=== PATIENT | female | born 1930 | race Caucasian/White ===

== ENCOUNTER → 2017-01-02 | Outpatient (CLI) | payer OTHER, BC ==
[~2017-01-02] MED LIST: ADVIN50/60 INH; ALLO100T PO; ASCO500T16 PO; ASTN; AZEL0.15 NAE; CALC-5 PO; CAPS0.072 EXT; CHOL100010 PO; CYAN100020 PO; CYCL0.05 OP; CYM/30 PO; DRGTP100 TD; DTR2 PO; FLUT0.15 NAE; GABA-112 PO; GABA-113 PO; MONT1TAB3 PO; MULTTAB5 PO; OXGN INTNAS; OXYC1TAB3 PO; OXYC5TAB PO; PANT40TA PO; POLY335040 PO; RANI300T2 PO; RIVA1.5T PO; SPIR25TA PO; TELM80TA PO
[2017-01-02 17:15] LABS: BASO % 0.2 %; BASO ABS # 0.02 K/uL (0-0.2); COMPLETE YES; EOS % 0.9 %; HEMATOCRIT 38.7 % (37-47); IG% 1.5 %; LYMPH % 29.4 %; LYMPH ABS # 3.61 K/uL (1.2-3.4); MEAN CORPUSCULAR HEMOGLOBIN 36.4 pg (25-34); MEAN CORPUSCULAR HGB CONC 34.4 g/dl (32-36); MEAN PLATELET VOLUME 12.5 fL (7.4-10.4); MONO % 16.6 %; NEUT % 51.4 %; PLATELET COUNT 234 K/uL (130-400); RED BLOOD COUNT 3.65 M/uL (4.2-5.4); WHITE BLOOD COUNT 12.27 K/uL (4.8-10.8)
[2017-01-02 17:26] LABS: ALT/SGPT 57 U/L (12-78); AST/SGOT 32 U/L (15-37); BLOOD UREA NITROGEN 21 mg/dl (7-18); BUN/CREATININE RATIO 17.4 (10-20); CALCIUM 9.5 mg/dl (8.5-10.1); CARBON DIOXIDE 22 mmol/L (21-32); CHLORIDE 109 mmol/L (98-107); GLUCOSE 101 mg/dl (70-99); POTASSIUM 4.1 mmol/L (3.5-5.1); SODIUM 143 mmol/L (136-145)
[2017-01-02 17:38] LABS: ALB/GLOB RATIO 1.1 (0.9-2); ALKALINE PHOSPHATASE 95 U/L (45-117)
--- NOTE | 2017-01-06 11:18 | CODING QUERY MEDICAL NECESSITY ---
SUPPORTING DIAGNOSIS NEEDED Dr. Mendez, A supporting diagnosis is required for the test/procedure performed on this patient in order for us to be reimbursed by the patient's insurance. Please provide a supporting diagnosis for the following test/procedure listed below next to the test name along with your signature. *If there is no additional diagnosis for this patient that would support the following test/procedure please document that below next to the test/procedure. Test(s)/Procedure(s) that require a supporting diagnosis: * ([id number]) VITAMIN D ASSAY DIAGNOSIS: DATE OF SERVICE: 01/02/17 Provider Signature: Date: Thank you Rich Perez [facility] Information Management Once completed, please kindly fax back to [phone] For questions please call [phone]
== END | disposition home or self-care (01) ==
LOC: C.LABBC 14:52
PROVIDERS: ATTEND Nurse Practitioner Family
DX: J45.909 Unspecified asthma, uncomplicated (principal); I10 Essential (primary) hypertension; R73.9 Hyperglycemia, unspecified; N18.9 Chronic kidney disease, unspecified; R41.3 Other amnesia; R35.0 Frequency of micturition

== ENCOUNTER → 2017-03-17 | Outpatient (CLI) | payer OTHER, BC ==
--- NOTE | 2017-03-17 11:04 | DIAGNOSTIC IMAGING REPORT ---
ABDOMINAL ULTRASOUND TO EVALUATE FOR HERNIA HISTORY: Abdominal hernia.. COMPARISON: CT of the abdomen and pelvis August 04, 2016. FINDINGS: Note is made of an elliptical abnormality of the mid anterior abdominal wall that measures 6.5 x 3.4 x 7.8 cm. This contains a linear echogenic focus. This corresponds to the abnormality shown on CT of August 04, 2016 and suggests a previous ventral hernia repair with mesh. This is unchanged. No hernia at this level is identified. IMPRESSION: 6.5 x 3.4 x 7.8 cm elliptical hypoechoic abnormality of the mid anterior abdominal wall which corresponds to the finding on CT of August 04, 2016 and suggests findings related to a prior ventral hernia repair with mesh with associated fluid/complex material. Findings are unchanged and likely chronic. No recurrent hernia at this level. Electronically signed by: Shailesh Luu M.D. 03/17/2017 11:03 AM Dictated Date/Time: 03/17/2017 10:56 AM
== END | disposition home or self-care (01) ==
LOC: C.ULTR 10:20
PROVIDERS: ATTEND Internal Medicine Geriatric Medicine
DX: K46.9 Unspecified abdominal hernia without obstruction or gangrene (principal)

== ENCOUNTER → 2017-06-13 | Outpatient (CLI) | payer OTHER, BC ==
[2017-06-13 17:06] LABS: HEMATOCRIT 36.4 % (37-47); MEAN CORPUSCULAR HEMOGLOBIN 36.2 pg (25-34); MEAN CORPUSCULAR HGB CONC 33.5 g/dl (32-36); MEAN PLATELET VOLUME 12.5 fL (7.4-10.4); PLATELET COUNT 191 K/uL (130-400); RED BLOOD COUNT 3.37 M/uL (4.2-5.4); WHITE BLOOD COUNT 10.04 K/uL (4.8-10.8)
[2017-06-13 17:21] LABS: BLOOD UREA NITROGEN 26 mg/dl (7-18); BUN/CREATININE RATIO 21.5 (10-20); CALCIUM 9.7 mg/dl (8.5-10.1); CARBON DIOXIDE 26 mmol/L (21-32); CHLORIDE 110 mmol/L (98-107); GLUCOSE 88 mg/dl (70-99); POTASSIUM 4.7 mmol/L (3.5-5.1); SODIUM 140 mmol/L (136-145); URIC ACID 5.4 mg/dl (2.6-7.2)
[2017-06-13 18:54] LABS: BASO ABS # 0.09 K/uL (0-0.2); BASOPHIL % 0.9 %; COMPLETE YES; EOSINOPHIL % 2.6 %; LYMPH ABS # 2.34 K/uL (1.2-3.4); LYMPHOCYTE % 23.3 %; NEUTROPHILS % 60.3 %
[2017-06-14 06:28] LABS: ESTIMATED AVERAGE GLUCOSE 108 mg/dl; HA1C FLAG Normal (Normal)
== END | disposition home or self-care (01) ==
LOC: C.LABBC 14:12
PROVIDERS: ATTEND Physician Assistant Medical
DX: J45.909 Unspecified asthma, uncomplicated (principal); I10 Essential (primary) hypertension; E03.9 Hypothyroidism, unspecified; M10.9 Gout, unspecified; R73.9 Hyperglycemia, unspecified; I89.0 Lymphedema, not elsewhere classified; M79.673 Pain in unspecified foot

== ENCOUNTER → 2017-07-25 | Outpatient (CLI) | payer OTHER, BC ==
--- NOTE | 2017-07-25 14:22 | DIAGNOSTIC IMAGING REPORT ---
(CHEST) THORAX WITHOUT CLINICAL HISTORY: 86 years-old Female presenting with solitary pulmonary nodule (right middle lobe 11 millimeter nodule). TECHNIQUE: Multidetector CT imaging of the chest was performed without the use of intravenous contrast. IV contrast: None. A dose lowering technique was used consistent with the principles of ALARA (as low as reasonably achievable). COMPARISON: 07/19/2016. CT DOSE (mGy.cm): The estimated cumulative dose is 897.70 mGy.cm. FINDINGS: Dietary Cook topogram: Surgical clips project over the right upper quadrant. Her slightly visualized posterior lumbar fusion hardware. On soft tissue windows, postsurgical changes of right mastectomy. Partially calcified nodule in the left breast subareolar region. Normal thyroid and thoracic inlet. Numerous prominent mediastinal lymph nodes similar to prior exam measuring up to 7 mm in the short axis. Atherosclerosis of aortic arch. The main pulmonary artery is enlarged measuring 3.8 cm in transverse dimension. Normal heart size. Aortic valve, mitral annular, and coronary artery calcification. No pericardial or pleural effusion. Numerous punctate calcifications noted in the spleen, likely indicating old granulomatous disease. Postsurgical or posttraumatic changes of the inferior lateral aspect of the spleen. Surgical material along the left aspect of the liver may indicate left hepatectomy or ballistic material. 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 Gallbladder contains gallstones. Surgical mesh noted at the ventral midline abdomen with an associated fluid collection, unchanged in appearance from prior exam. On lung windows, postsurgical changes of wedge resection in the right lower lobe with a suture margin noted in the superior segment. Persistent consolidation along the suture margin suggestive of cicatrizing atelectasis. Interval increase in tree-in-bud, groundglass, and more solid consolidation in the dependent portions of the right middle lobe and right lower lobe. The previously noted solid pulmonary nodule now measures 12 mm, previously 11 mm. Additional more central solid pulmonary nodule in the right middle lobe measures 14 mm, previously 10 mm. These nodules immediately abut the medial segment bronchus of the right middle lobe. Airways remain patent. On bone windows, degenerative changes of the spine. IMPRESSION: 1. Slight interval increase in size of the 2 right middle lobe solid pulmonary nodules, which measure up to 14 mm. Follow-up per Shari Society 2017 recommendations below. 2. Postsurgical changes of right lower lobe wedge resection with associated persistent cicatrizing atelectasis. 3. Interval development of dependent opacities in the right middle and lower lobes, which are concerning for infection or aspiration. Please refer to below summary of Fleischner Society 2017 recommendations for follow-up of incidental CT nodules (Patrick Celis et al. Guidelines for management of incidental pulmonary nodules detected on CT images: From the Fleischner Society 2017. Radiology 2017; 284: 228-243.) SOLID NODULES Single nodule; size <6 mm * Low risk patients: No routine follow-up * High risk patients: Optional CT at 12 months Single nodule; size 6-8 mm * Low risk patients: CT at 6-12 months, then consider CT at 18-24 months * High risk patients: CT at 6-12 months, then at 18-24 months Single nodule; size >8 mm * Either low or high risk patients: Considered CT at 3 months, PET/CT, or tissue sampling Multiple nodules; size <6 mm * Low risk patients: No routine follow up * High risk patients: Optional CT at 12 months Multiple nodules; size 6-8 mm * Low risk patients: CT at 3-6 months, then consider CT at 18-24 months * High risk patients: CT at 3-6 months, then at 18-24 months Multiple nodules; size >8 mm * Low risk patients: CT at 3-6 months, then consider at 18-24 months * High risk patients: CT at 3-6 months, then at 18-24 months Note: These guidelines apply to incidental nodules. These guidelines did not apply to patients younger than 35 years, immunocompromised patients, or patients with cancer. * Low risk patients: Minimal or absent history of smoking and/or other known risk factors * High risk patients: History of smoking, exposure to other carcinogens, emphysema, fibrosis, upper lobe location, family history of lung cancer, etc. * If a nodule up to 8 mm is partly solid or is ground glass further follow-up is required after 24 months to exclude possible slow growing adenocarcinoma SUBSOLID NODULES Single ground-glass nodule * Nodule size < 6 mm: No routine follow-up * Nodule size > or = 6 mm: CT at 6-12 months to confirm persistence, then CT every 2 years until 5 years Single part-solid nodule * Nodule size < 6 mm: No routine follow-up * Nodules size > or = 6 mm: CT at 3-6 months to confirm persistence. If unchanged and solid component remains < 6 mm, annual CT should be performed for 5 years Multiple nodules * Nodule size < 6 mm: CT at 3-6 months. If stable, consider CT at 2 and 4 years. * Nodules size > or = 6 mm: CT at 3-6 months. Subsequent management based on the most suspicious nodule(s) Electronically signed by: Kingsley Olsen M.D. 07/25/2017 2:21 PM Dictated Date/Time: 07/25/2017 2:09 PM
== END | disposition home or self-care (01) ==
LOC: C.CTS 13:43
PROVIDERS: ATTEND Internal Medicine Geriatric Medicine
DX: R91.1 Solitary pulmonary nodule (principal)

== ENCOUNTER → 2017-08-07 | Outpatient (CLI) | payer OTHER, BC | END | disposition home or self-care (01) | LOC: C.LABSPEC 17:08 | PROVIDERS: ATTEND Nurse Practitioner Family | DX: R32 Unspecified urinary incontinence (principal) ==

== ENCOUNTER → 2017-09-04 | Outpatient (CLI) | payer OTHER, BC ==
--- NOTE | 2017-09-05 07:36 | DIAGNOSTIC IMAGING REPORT ---
PET/CT SKULL-THIGH CLINICAL HISTORY: 86 years-old Female with PULMONARY NODULE. History of mucinous bronchoalveolar carcinoma and breast cancer. History of prior right upper lobe wedge resection with pleural-parenchymal scarring and atelectasis. Nodules of the right middle lobe and increased in size. COMPARISON: PET CT 12/08/2014, CT chest 07/25/2017 TECHNIQUE: The patient was injected with 9.95 mCi of F-18 fluorodeoxyglucose (FDG) and an emission scan was performed from the skull vertex to the toes. Noncontrast CT was performed for attenuation correction and anatomic localization. The blood glucose level was 107 mg/dl. FINDINGS: HEAD AND NECK: Focally increased radiotracer uptake of several right mandibular teeth are seen with SUV max measuring up to 4.6 without definite correlate seen on the CT portion of the study suggesting odontogenic disease. Increased radiotracer uptake about the glottis is present with SUV max measuring up to 5.0 on the left. Mild asymmetric soft tissue prominence is noted within the left posterolateral glottic tissues just superior to the cricoid cartilage as seen on image 43 of series 2 without definite mass. CHEST: Moderate respiratory motion limits evaluation of the lung parenchyma. Previously noted solid pulmonary nodules of the right middle lobe which were previously noted measuring up to 14 mm are seen on image 89 of series 2. No definite focally increased FDG activity is seen to correspond with these nodules. There is mildly increased radiotracer uptake associated with subsegmental dependent groundglass and consolidative opacities of the basal right lower lobe as seen on CT image 101 of series 2 demonstrating SUV max of 2.4. No FDG avid adenopathy. ABDOMEN AND PELVIS: There is a physiologic distribution of activity within the liver, spleen, adrenal glands, gastrointestinal and urinary tracts, with no hypermetabolic foci. MUSCULOSKELETAL SYSTEM AND EXTREMITIES: There is an acute to subacute appearing nondisplaced fracture involving the anterior aspect of the left second rib which is new from prior study of 07/25/2017 demonstrating focally increased FDG activity with SUV max of 5.3 as seen on image 68 of series 2. Mildly increased radiotracer uptake about the bilateral shoulders is likely degenerative related. ADDITIONAL CT FINDINGS: Heterogeneous appearance of the thyroid. Cardiomegaly with coronary arterial disease. Dilation of the main pulmonary artery, 3.4 cm suggesting pulmonary arterial hypertension. Scattered groundglass and nodular consolidative opacities of the lower lobes. Postsurgical changes of the right lung again seen. Scattered calcifications of the splenic parenchyma compatible with prior granulomatous disease. Cholelithiasis. Unchanged 7.7 x 3.4 cm collection of the anterior abdominal wall associated with herniorrhaphy mesh suggesting chronic seroma. Mild renal cortical thinning bilaterally. Atherosclerosis of the aorta. IMPRESSION: 1. Moderate respiratory motion limits evaluation of the lungs. The two pulmonary nodules within the right middle lobe which were previously seen measuring up to 14 mm do not demonstrate appreciable FDG uptake. This however does not exclude the possibility of neoplasm and continued follow-up is recommended. 2. Acute to subacute nondisplaced fracture of the anterior left second rib, new from 07/25/2017 demonstrates focally increased FDG uptake related to healing. 3. Mildly increased radiotracer uptake associated with subsegmental consolidation of the right lower lobe, suspicious for pneumonia or aspiration pneumonitis. 4. No hypermetabolic adenopathy. 5. Mild soft tissue prominence with increased FDG activity associated with the left glottic tissues as above. This can be correlated with direct visualization. 6. Additional incidental findings as above. The above report was generated using voice recognition software. It may contain grammatical, syntax or spelling errors. Electronically signed by: Sixto Breaux M.D. 09/05/2017 7:35 AM Dictated Date/Time: 09/05/2017 7:14 AM
== END | disposition home or self-care (01) ==
LOC: C.PET 13:03
PROVIDERS: ATTEND Physician Assistant
DX: R91.1 Solitary pulmonary nodule (principal)

== ENCOUNTER → 2017-09-20 | Outpatient (CLI) | payer OTHER, BC ==
--- NOTE | 2017-09-20 15:51 | DIAGNOSTIC IMAGING REPORT ---
CHEST 2 VIEWS ROUTINE CLINICAL HISTORY: COUGH dyspnea COMPARISON STUDY: No previous studies for comparison. FINDINGS: Poorly defined interstitial infiltrates right as well as left base. Mild cardiomegaly. Mid and upper lungs are considered clear. Calcified node in the azygo esophageal recess considered benign. Degenerative change of both shoulders. IMPRESSION: Mild bibasilar interstitial infiltrates. The above report was generated using voice recognition software. It may contain grammatical, syntax or spelling errors. Electronically signed by: Wm Browne M.D. 09/20/2017 3:50 PM Dictated Date/Time: 09/20/2017 3:49 PM
--- NOTE | 2017-09-20 16:04 | DIAGNOSTIC IMAGING REPORT ---
VENOUS DOPP LOWER EXT UNILAT CLINICAL HISTORY: VENOUS DOPPLER pain. Edema. TECHNIQUE: Venous Doppler COMPARISON STUDY: None FINDINGS: Normal venous Doppler left leg. IMPRESSION: Normal venous Doppler left leg. The above report was generated using voice recognition software. It may contain grammatical, syntax or spelling errors. Electronically signed by: Wm Browne M.D. 09/20/2017 4:02 PM Dictated Date/Time: 09/20/2017 4:02 PM
[2017-09-20 16:53] LABS: BASO % 0.1 %; BASO ABS # 0.01 K/uL (0-0.2); COMPLETE YES; EOS % 0.6 %; HEMATOCRIT 38.1 % (37-47); IG% 1.5 %; LYMPH % 25.7 %; LYMPH ABS # 3.07 K/uL (1.2-3.4); MEAN CELL VOLUME 107.9 fL (80-100); MEAN CORPUSCULAR HEMOGLOBIN 36.8 pg (25-34); MEAN CORPUSCULAR HGB CONC 34.1 g/dl (32-36); MONO % 15.1 %; PLATELET COUNT 222 K/uL (130-400); RED BLOOD COUNT 3.53 M/uL (4.2-5.4); WHITE BLOOD COUNT 11.93 K/uL (4.8-10.8)
[2017-09-20 17:02] LABS: BLOOD UREA NITROGEN 19 mg/dl (7-18); BUN/CREATININE RATIO 16.8 (10-20); CALCIUM 9.9 mg/dl (8.5-10.1); CARBON DIOXIDE 24 mmol/L (21-32); CHLORIDE 107 mmol/L (98-107); CREATININE 1.14 mg/dl (0.60-1.20); GLUCOSE 99 mg/dl (70-99); POTASSIUM 4.7 mmol/L (3.5-5.1); SODIUM 138 mmol/L (136-145)
[2017-09-20 17:11] LABS: URINE APPEARANCE CLEAR (CLEAR); URINE BILIRUBIN NEG (NEG); URINE COLOR YELLOW; URINE EPITHELIAL CELL AUTO 20-30 /lpf (0-5); URINE NITRITE NEG (NEG); URINE PH 8.5 (4.5-7.5); URINE SPECIFIC GRAVITY 1.014 (1.000-1.030); UROBILINOGEN NEG (NEG)
[2017-09-20 17:15] LABS: MANUAL MICROSCOPIC REQUIRED? NO; REVIEW REQ? NO
== END | disposition home or self-care (01) ==
LOC: C.ULTRBC 14:58
PROVIDERS: ATTEND Physician Assistant Medical
DX: R60.0 Localized edema (principal); R05 Cough; M10.9 Gout, unspecified; G25.81 Restless legs syndrome; R35.0 Frequency of micturition

== ENCOUNTER → 2017-09-27 | Outpatient (CLI) | payer OTHER, BC ==
[2017-09-27 17:29] LABS: BLOOD UREA NITROGEN 19 mg/dl (7-18); BUN/CREATININE RATIO 16.2 (10-20); CALCIUM 9.5 mg/dl (8.5-10.1); CARBON DIOXIDE 25 mmol/L (21-32); CHLORIDE 106 mmol/L (98-107); CREATININE 1.17 mg/dl (0.60-1.20); GLUCOSE 104 mg/dl (70-99); POTASSIUM 4.7 mmol/L (3.5-5.1); SODIUM 139 mmol/L (136-145)
== END | disposition home or self-care (01) ==
LOC: C.LABBC 15:06
PROVIDERS: ATTEND Physician Assistant Medical
DX: R60.9 Edema, unspecified (principal)

== ENCOUNTER → 2017-10-10 | Outpatient (CLI) | payer OTHER, BC ==
--- NOTE | 2017-10-10 16:12 | DIAGNOSTIC IMAGING REPORT ---
R TIBIA/FIBULA 2 VIEWS ROUTINE CLINICAL HISTORY: Right lower leg pain. COMPARISON STUDY: None. FINDINGS: Partially visualized right total knee arthroplasty. No abnormal periprosthetic lucency. No fracture or dislocation within the right tibia or fibula. There is mild diffuse soft tissue edema. IMPRESSION: 1. No fracture or dislocation within the right lower leg. 2. Diffuse mild soft tissue edema. Electronically signed by: Darshan Yin M.D. 10/10/2017 4:11 PM Dictated Date/Time: 10/10/2017 4:09 PM
--- NOTE | 2017-10-10 16:15 | DIAGNOSTIC IMAGING REPORT ---
RIGHT HIP 2 VIEWS HISTORY: Right hip PAIN COMPARISON: None. FINDINGS: The bones are osteopenic. No acute fracture or dislocation within the right hip. The visualized pelvic bones are intact. Soft tissues are unremarkable. Posterior fusion hardware seen within the lower lumbar spine. IMPRESSION: No fracture or dislocation within the right hip. Electronically signed by: Darshan Yin M.D. 10/10/2017 4:14 PM Dictated Date/Time: 10/10/2017 4:13 PM
== END | disposition home or self-care (01) ==
LOC: C.LABBC 15:01
PROVIDERS: ATTEND Physician Assistant Medical
DX: M79.604 Pain in right leg (principal)

== ENCOUNTER → 2017-11-01 | Outpatient (CLI) | payer OTHER, BC ==
[~2017-11-01] MED LIST changes: +ACET-1175 PO; +ALBU18002 INH; -ASTN; +ASTN NAE; +CALC-439 PO; +CEFD1CAP14 PO; +CEPH-570 PO; +CPR/500 PO; -CYCL0.05 OP; +CYCL0.05 OPB; +CYCL0.052 OP; +DXY100 PO; +FENT1DIS85 TD; +FNTTP50 TD; +HYZ/10015 PO; +INVAV1 IV; +LEVO1TAB35 PO; +LOSA1TAB38 PO; +LOSA50TA6 PO; +LVQ500 PO; +LVQ750 PO; +NITR-5 PO; +NITR1CAP32 PO; +NYSCR30 EXT; +ONDA4TAB9 PO; +OXYC-90 PO; -OXYC1TAB3 PO; +POLY335019 PO; +PRED10TA PO; +PRED20TA PO; +PRLSR20 PO; +ROPI1TAB29 PO; +RQP1 PO; +SPRIN/30 INH; +VENTOLIN HFA 108 INH
--- NOTE | 2017-11-02 07:58 | PAP/PSG TECHNICIAN REPORT ---
[facility] Airworthiness Safety Inspector Polysomnogram Report Study name: None Report date: 11/02/2017 Study date: 11/01/2017 Referring Physician: EMELIA KERR M.D. Name: EJ ADAM Interpreting Physician: Patrick Garcia M.D. Date of : 1930 Airworthiness Safety Inspector: Mary Castelan, PSGT. Sex: Female Age: 87 StudyType: PSG Weight: 273 lbs Height: 87 years, Height 5' 4" Neck Circum:18 inches BMI: 46.86 Medications: SEE LIST OF 23 MEDICATIONS IN CHART. Patient History 89 yr. old female presents to the sleep lab for a titration sleep study. Patient states that she has been on 11 cm of c-pap since 2012 with 2 liters of oxygen, . She states that she has been feeling very tired after wakening in the am, and that she wakes often during the night for hours at a time. She does wear a pain patch and takes oxycodone often for back pain. Parameters Monitored NPSG: E1-M2, E2-M1, Fp1-M2, Fp2-M1, F3-M2, F4-M2, F4-M1, C3-M2, C4-M2, C4-M1, O1-M2, O2-M2, O2-M1, T3-M2, T4-M1, P3-M2, P4-M1, CHIN1, CHIN2, HR, EKG, Legs, PFLOW, SNOR, FLOW, CFLOW, Tidal Volume, THOR, ABDO, SpO2, PLTH, CPRESS, ETCO2 Wave, ETCO2, pH Sleep Architecture Sleep Stages Time at Lights Off 10:19:00 PM STAGES Time (min.) TST (%) Time at Lights On 5:19:00 AM Wake 142.0 -- Total Recording Time (TRT) 422.00 min. N1 12.0 4 Total Sleep Period (TSP) 395.0 min. N2 254.5 92 Total Sleep Time (TST) 277.5min. N3 11.0 4 Awake Time 144.5 min. REM 0.0 0 Wake after Sleep Onset 117.5 min. Sleep Efficiency (SE) 66 % Sleep Onset Latency (JUNIOR) 25.0 min. Number of Stage 1 Shifts None Awakenings 13 Stage Changes 51 Number of REM periods N/A REM 0.0 0 REM Latency NONE min. NREM 277.5 100 Body Position Analysis Supine Right Left Side Prone Vertical Total Sleep Time (min.) 419.5 0.0 0.0 0.00 0.0 0.0 Total Sleep Time (%) 100% 0% 0% 0 0% N/A% Total Sleep Time REM (min.) 0.0 0.0 0.0 None 0.0 0.0 Total Sleep Time NREM (min.) 277.5 0.0 0.0 None 0.0 0.0 Intermittent Wake (min.) 142.0 0.0 0.0 None 0.0 0.0 Total Sleep Period (%) 100% None None None None None Arousals Myoclonus (PLM) * Events Count Index Events Count Index Spontaneous 114 25 Events Awake (PLMW) 0 0.0 Respiratory 17 3.7 Events Asleep w/ Arousal (PLMA) 4 0.9 PLM 4 1 Events Asleep w/o Arousal (PLMS) 44 9.5 Snoring 15 3 Total Asleep 48 10.4 Total 150 32 Total 48 7 Respiratory Analysis * CA OA MA CH H RERA Total Count 11 4 2 0 187 0 204 Index 2.4 0.9 0.4 0 40.4 0 44.1 Mean Duration 11.8 12.7 11.0 0.00 14.3 0.0 14.1 Longest Duration 16.3 18.0 11.2 0.00 11.2 0.0 51.5 Respiratory Event Summary Total Supine ~Supine Right Left Prone REM NREM Apneas Count 17 17 N/A N/A N/A N/A N/A 17 Index 3.7 4 N/A N/A N/A N/A N/A 4 Hypopneas (4% Desat) Count 187 187 N/A N/A N/A N/A N/A 187 Index 40.4 40.4 N/A N/A N/A N/A N/A 40.4 Apneas & All Hypopneas Count 204 204 N/A N/A N/A N/A N/A 204 Index 44.1 44 N/A N/A N/A N/A N/A 44.1 Respiratory Events (Workers' Compensation Claims Examiner+All Hyp+RERA) Count 204 204 N/A N/A N/A N/A N/A 204 Index 44.1 44 N/A N/A N/A N/A N/A 44.1 Respiratory Related Arousal Count 17 204 N/A N/A N/A N/A N/A 17 Index 3.7 4 N/A N/A N/A N/A N/A 4 Snoring Analysis Supine Right Left Prone REM NREM Total Snore duration 6.9 min Snores count 161 N/A N/A N/A N/A 161 161 Snore mean duration 2.6 Sec Snores index 35 N/A N/A N/A N/A 34.8 34.8 TST with snoring (%) 2.5% Desaturation Event Summary: Minimum %SpO2 Event Count Mean/Min/Max Duration(sec.) Desaturation Index % Time In Bed > 90 4 14.3 / 9.0 / 19.3 729.1 0.1 86 - 90 273 14.4 / 7.0 / 56.0 150.0 27.2 81 - 85 205 12.9 / 6.3 / 23.8 47.7 64.3 76 - 80 0 N/A 0.0 8.3 71 - 75 0 N/A 0.0 0.0 66 - 70 0 N/A 0.0 0.0 61 - 65 0 N/A 0.0 0.0 56 - 60 0 N/A 0.0 0.0 51 - 55 0 N/A 0.0 0.0 < 50 0 N/A 0.0 0.0 Total REM NREM Awake <50% 0.0 min. 0.0 min. 0.0 min. 0.0 min. 51 - 60% 0.0 min. 0.0 min. 0.0 min. 0.0 min. 61 - 70% 0.0 min. 0.0 min. 0.0 min. 0.0 min. 71 - 80% 33.4 min. 0.0 min. 21.1 min. 12.3 min. 81 - 90% 367.2 min. 0.0 min. 256.1 min. 111.1 min. 91 - 100% 0.3 min. 0.0 min. 0.3 min. 0.0 min. Average 84 0 84 84 Minimum SpO2 75 N/A 76 75 Desaturation Event Index 47.1 0.0 71.1 0.8 # Desat. Events below 89% 329 N/A 329 0 Time(%) with Saturation below 89% 98.7 0.0 68.2 30.5 Time(min.) with Saturation below 89% 395.6 0.0 273.4 122.2 Heart Rate Analysis End Tidal CO2 Analysis Min (bpm) Max (bpm) Average (bpm) TSP (mins) % of TSP Awake 56 87 67 Above 55 mmHg 0.0 0.0 NREM 55 83 63 50-55 mmHg 0.0 0.0 REM N/A N/A N/A 45-50 mmHg 277.5 100.0 Overall 55 83 63 40-45 mmHg 0.0 0.0 35-40 mmHg 0.0 0.0 30-35 mmHg 0.0 0.0 Average ETCO2 0.0 Supplemental O2 Values Minimum O2 level: None Value Start Time End Time Airworthiness Safety Inspector Comments PAP Study: slept in the supine and prone positions. No cardiac arrhythmia or PLM's noted. No bruxism noted. CPAP was initiated at +4 CMH2O and up-titrated to an optimal level of +16 CMH2O, Due to high C-pap pressure Bi-pap was started at 16/12 cm h20 and up titrated to 16/13 cm. Patient woke at that time and requested to end study. Oxygen was not added due on going respiratory events' Med Size Small Simplus, was used during titration Ms. Adam awoke to use the restroom two times during the night. Ms. Adam stated, I did sleep as well as I do when I am in my own bed. The final report will be interpreted and signed by a sleep physician. The completed physician report will then be placed in the patient medical record. Patient slept supine the entire study, she had respiratory events the entire study with increase throughout-pap was started after a pressure of 16 cm was reached. Her Bi-pap pressure before wakening was Ipap 17/ Epap 13 cm h20 room air. Patient seemed to do the best at the c-pap setting of 15 cm h20 . Therapy Event: Therapy (cm H20) 4 6 8 10 12 14 15 16 16/12 17/13 Total Time at Pressure (min.) 8.2 8.2 34.0 37.7 31.5 113.9 59.8 44.5 32.1 49.6 TST at Pressure (min.) 0.0 8.2 30.1 30.6 26.5 58.9 59.8 23.2 8.4 31.8 # Periods 1 1 1 1 1 1 1 1 1 2 Sleep Onset (min.) N/A 0.0 0.0 0.1 0.0 0.0 0.0 0.0 23.7 16.8 REM Onset (min.) N/A N/A N/A N/A N/A N/A N/A N/A N/A N/A Sleep Efficiency % 0 100 88 81 84 51 100 52 26 64 Wakefulness (%) 100.0 0.0 11.4 18.9 15.9 48.3 0.0 47.9 73.8 35.9 Wakefulness (min.) 8.2 0.0 3.9 7.1 5.0 55.0 0.0 21.3 23.7 17.8 NREM 1 (%) 0.0 0.0 1.5 4.0 3.2 5.3 0.0 0.0 3.1 4.0 NREM 1 (min.) 0.0 0.0 0.5 1.5 1.0 6.0 0.0 0.0 1.0 2.0 NREM 2 (%) 0.0 0.0 82.4 77.1 81.0 46.4 100.0 52.1 23.1 57.6 NREM 2 (min.) 0.0 0.0 28.0 29.1 25.5 52.9 59.8 23.2 7.4 28.6 NREM 3 (%) 0.0 100.0 4.8 0.0 0.0 0.0 0.0 0.0 0.0 2.5 NREM 3 (min.) 0.0 8.2 1.6 0.0 0.0 0.0 0.0 0.0 0.0 1.2 REM (%) 0.0 0.0 0.0 0.0 0.0 0.0 0.0 0.0 0.0 0.0 REM (min.) 0.0 0.0 0.0 0.0 0.0 0.0 0.0 0.0 0.0 0.0 # Arousals N/A 1 36 10 12 26 40 14 0 11 Arousal Index N/A 7.4 71.7 19.6 27.2 26.5 40.1 36.2 0.0 20.7 # Snore N/A 0 25 17 43 29 22 24 0 1 Snore Index N/A 0.0 49.8 33.4 97.4 29.5 22.1 62.0 0.0 1.9 AHI N/A 125.1 51.8 111.8 56.6 20.4 11.0 25.8 107.0 43.4 AHI Supine N/A 125.1 51.8 111.8 56.6 20.4 11.0 25.8 107.0 43.4 AHI Non-Supine N/A N/A N/A N/A N/A N/A N/A N/A N/A N/A NREM AHI N/A 125.1 51.8 111.8 56.6 20.4 11.0 25.8 107.0 43.4 REM AHI N/A N/A N/A N/A N/A N/A N/A N/A N/A N/A RDI N/A 125.1 51.8 111.8 56.6 20.4 11.0 25.8 107.0 43.4 # Obstructive N/A 0 1 0 1 2 0 0 0 0 # Central Ap N/A 3 1 0 1 0 0 0 6 0 # Mixed N/A 1 0 0 1 0 0 0 0 0 # Hypopneas N/A 13 24 57 22 18 11 10 9 23 RERAS N/A 0 0 0 0 0 0 0 0 0 Total Respiratory Events N/A 17 26 57 25 20 11 10 15 23 Time Below SpO2 89.00% (min.) 0.0 8.2 29.9 27.8 26.2 58.8 59.5 23.2 8.3 31.5 Mean NREM SpO2 (%) N/A 84 82 84 84 84 85 85 85 84 Mean REM SpO2 (%) N/A N/A N/A N/A N/A N/A N/A N/A N/A N/A Mean Sleep SpO2 (%) N/A 84 82 84 84 84 85 85 85 84 Min NREM SpO2 (%) N/A 79 76 76 78 78 81 81 80 78 Min REM SpO2 (%) N/A N/A N/A N/A N/A N/A N/A N/A N/A N/A Position Supine (min.) 0.0 8.2 30.1 30.6 26.5 58.9 59.8 23.2 8.4 31.8 Position Non-supine (min.) 0.0 0.0 0.0 0.0 0.0 0.0 0.0 0.0 0.0 0.0 LM Index Sleep N/A 0.0 4.0 3.9 11.3 12.2 19.1 18.1 0.0 1.9 LM Index NREM N/A 0.0 4.0 3.9 11.3 12.2 19.1 18.1 0.0 1.9 LM Index REM N/A N/A N/A N/A N/A N/A N/A N/A N/A N/A Mean Heart Rate (bpm) N/A 65 66 63 65 63 62 61 58 61 Min Heart Rate (bpm) N/A 61 61 60 60 59 59 58 55 55
--- NOTE | 2017-11-02 17:49 | POLYSOMNOGRAPH REPORT ---
CLINICAL DATA: An 87-year-old female with a BMI of 48.9, referred by Dr. Mendez for a CPAP titration study. She has been on 11 cm CPAP since 2012 with 2 liters of oxygen. She still feels tired after awakening and wakes up often at night for several hours. She does wear a pain patch and takes oxycodone for back pain. SLEEP ARCHITECTURE: Total sleep period was 395 minutes. Total sleep time was 277.5 minutes, all non-REM sleep. Sleep latency was 25 minutes. Sleep efficiency was 66%. Wake after sleep onset was 117.5 minutes. Sleep consisted of stage N1 4%, stage N2 92%, and stage N3 4 %. AROUSAL DATA: One hundred and fifty arousals were recorded for an index of 32 per hour. One hundred and fourteen were nonspecific arousals. PERIODIC LIMB MOVEMENT DATA: Forty eight limb movements during sleep were noted for an index of 10.4 per hour with arousal index of 0.9 per hour. RESPIRATORY DATA: The AHI was 44.1. There were 11 central, 4 obstructive, and 2 mixed apneic episodes. The longest apneic episode was 18 seconds. There were 187 hypopneic episodes with the mean duration of 14.3 seconds. OXIMETRY DATA: Nocturnal hypoxemia was seen. Oxygen roge was 76%. Mean saturation was 84%. ECHOCARDIOGRAM: Heart rates ranged from 55-83 beats per minute. No arrhythmias were noted. [employer] WORKER'S COMMENTS AND TREATMENT SUMMARY: The patient slept supine and prone. CPAP was started at 4 cm of water pressure and was eventually titrated up to 16 cm of water pressure. At that point, she was switched to BIPAP 16/12 and was titrated up to 16/13. After that, the patient awoke and requested to end the study. Oxygen was not added due to ongoing respiratory events. The patient wore a medium size small Simplus mask. She did best at a pressure of 15 cm of water pressure with an AHI of 11. At all the other pressure settings, she had very high AHIs. IMPRESSION: Obstructive sleep apnea/hypopnea with an incomplete titration study. The patient's best apnea/hypopnea index was recorded at 15 cm of water pressure CPAP. At that pressure level, she had an apnea/hypopnea index of 11. RECOMMENDATIONS: The patient could be started on CPAP 15 cm of water pressure with a medium small sized Simplus facemask. The other option would be to place her on auto CPAP 5-20 cm water pressure with download compliance and effectiveness data after 4-6 weeks. Clinical correlation is needed. MTDD
== END | disposition home or self-care (01) ==
LOC: C.NEUR 21:00
PROVIDERS: ATTEND Internal Medicine Geriatric Medicine
DX: G47.33 Obstructive sleep apnea (adult) (pediatric) (principal)

== ENCOUNTER → 2017-12-11 | Outpatient (CLI) | payer OTHER, BC ==
[~2017-12-11] MED LIST changes: -ACET-1175 PO; -ALBU18002 INH; -ASCO500T16 PO; +ASTN; -ASTN NAE; -CALC-439 PO; -CAPS0.072 EXT; -CEFD1CAP14 PO; -CEPH-570 PO; -CPR/500 PO; +CYCL0.05 OP; -CYCL0.05 OPB; -CYCL0.052 OP; -DRGTP100 TD; -DTR2 PO; -DXY100 PO; -FENT1DIS85 TD; -GABA-112 PO; -GABA-113 PO; -INVAV1 IV; -LEVO1TAB35 PO; -LOSA1TAB38 PO; -LOSA50TA6 PO; -LVQ500 PO; -LVQ750 PO; -NITR-5 PO; -NITR1CAP32 PO; -NYSCR30 EXT; -ONDA4TAB9 PO; -OXYC-90 PO; +OXYC1TAB3 PO; -OXYC5TAB PO; -PANT40TA PO; -POLY335019 PO; -PRED10TA PO; -PRED20TA PO; -ROPI1TAB29 PO; -RQP1 PO; -SPRIN/30 INH; -TELM80TA PO; -VENTOLIN HFA 108 INH
== END | disposition home or self-care (01) ==
LOC: C.LABSPEC 16:42
PROVIDERS: ATTEND Nurse Practitioner Adult Health
DX: N39.41 Urge incontinence (principal)

== ENCOUNTER → 2017-12-14 | Outpatient (CLI) | payer OTHER, BC ==
[2017-12-14 17:31] LABS: BASO % 0.2 %; BASO ABS # 0.03 K/uL (0-0.2); EOS % 1.4 %; EOS ABS # 0.18 K/uL (0-0.5); IG# 0.41 K/uL (0.00-0.02); LYMPH % 24.4 %; LYMPH ABS # 3.16 K/uL (1.2-3.4); MEAN CELL VOLUME 106.5 fL (80-100); MEAN CORPUSCULAR HEMOGLOBIN 35.5 pg (25-34); MEAN CORPUSCULAR HGB CONC 33.3 g/dl (32-36); MEAN PLATELET VOLUME 12.8 fL (7.4-10.4); MONO % 14.6 %; MONO ABS # 1.89 K/uL (0.11-0.59); NEUT % 56.2 %; NEUT ABS # 7.27 K/uL (1.4-6.5); PLATELET COUNT 182 K/uL (130-400); RED CELL DISTRIBUTION WIDTH CV 15.7 % (11.5-14.5); RED CELL DISTRIBUTION WIDTH SD 61.2 fL (36.4-46.3); WHITE BLOOD COUNT 12.94 K/uL (4.8-10.8)
[2017-12-14 17:39] LABS: ALBUMIN 3.2 gm/dl (3.4-5.0); ALT/SGPT 76 U/L (12-78); AST/SGOT 51 U/L (15-37); BLOOD UREA NITROGEN 27 mg/dl (7-18); CALCIUM 9.9 mg/dl (8.5-10.1); CARBON DIOXIDE 26 mmol/L (21-32); CREATININE 1.56 mg/dl (0.60-1.20); GLUCOSE 105 mg/dl (70-99); POTASSIUM 4.5 mmol/L (3.5-5.1); SODIUM 137 mmol/L (136-145); URIC ACID 6.3 mg/dl (2.6-7.2)
[2017-12-14 17:49] LABS: ALKALINE PHOSPHATASE 166 U/L (45-117); TOTAL PROTEIN 6.8 gm/dl (6.4-8.2)
== END | disposition home or self-care (01) ==
LOC: C.LABBC 15:22
PROVIDERS: ATTEND Internal Medicine Geriatric Medicine
DX: G47.33 Obstructive sleep apnea (adult) (pediatric) (principal); I12.9 Hypertensive chronic kidney disease with stage 1 through stage 4 chronic kidney disease, or unspecified chronic kidney disease; M10.9 Gout, unspecified; R73.9 Hyperglycemia, unspecified; N18.9 Chronic kidney disease, unspecified; M79.676 Pain in unspecified toe(s)

== ENCOUNTER → 2017-12-27 | Outpatient (CLI) | payer OTHER, BC ==
[~2017-12-27] MED LIST changes: +ACET-1175 PO; -CYCL0.05 OP; +CYCL0.05 OPB; +LEVO1TAB35 PO; +LOSA50TA6 PO; +NITR-5 PO; +ONDA4TAB9 PO; +ROPI1TAB29 PO
--- NOTE | 2017-12-27 14:04 | DIAGNOSTIC IMAGING REPORT ---
(CHEST) THORAX WITHOUT CT DOSE: 1174.54 mGy.cm CLINICAL HISTORY: 87 years-old Female with R91.8 Pulmonary nodules TECHNIQUE: Multiaxial CT images of the chest were performed without contrast. A dose lowering technique was utilized adhering to the principles of ALARA. COMPARISON: CT chest 07/25/2017, PET CT 09/04/2017. FINDINGS: Multinodular thyroid with 8 mm right thyroid nodule. Calcified right hilar lymph nodes compatible with prior granulomatous disease. 8 mm AP window lymph node appears unchanged. Coronary arterial disease. Heart is normal in size. Moderate atherosclerosis of the aorta without aneurysm. No pneumothorax or pleural effusion. Postoperative changes of the basal right lower lobe are redemonstrated with areas of subsegmental pleural-parenchymal scarring and multifocal reticulation. Ill-defined consolidative opacity measuring 2.2 x 1.3 cm within the right lower lobe adjacent to the suture material is unchanged and likely reflects scarring as well. There are 2 ovoid solid noncalcified nodules again seen within the medial segment right middle lobe tracking along the bronchovascular bundle measuring up to 12 mm nicely seen on images 181 and 186 of series 4. These appear stable from comparison. Additionally, there is a 5 mm solid nodule of the lateral segment right middle lobe on image 190 series 4 which is unchanged. 2 mm solid nodule of the right middle lobe on image 174 series 4, unchanged. No new or enlarging pulmonary nodules identified. Central airways appear patent with mild mucosal secretions. Scattered calcifications throughout the spleen compatible with prior granulomatous disease. Calcifications also seen scattered throughout the liver. Surgical clips are noted within the right upper abdomen adjacent to the liver. Cholelithiasis without CT evidence of acute cholecystitis. Hypoattenuating reticular 8.4 x 3.7 cm collection is noted associated with prior ventral abdominal wall herniorrhaphy changes which is unchanged suggesting chronic seroma. Fusion hardware of the lumbar spine is partially imaged. The bones appear demineralized. Severe degenerative changes about the shoulders. Remote right-sided rib fractures are noted. IMPRESSION: 1. No acute intrathoracic abnormality identified. 2. Stable appearance of the solid nodules of the right middle lobe measuring up to approximately 12 mm. 3. Postsurgical changes of the right lower lobe with unchanged bibasilar reticular opacities compatible with fibrosis and atelectasis. 4. Prior granulomatous disease. 5. Cholelithiasis. Please refer to below summary of Fleischner criteria recommendations for follow-up of incidental CT nodules (Patrick Celis, Guidelines for management of small pulmonary nodules detected on CT scans: A statement from the Fleischner Society, Radiology 237: [phone].) SOLID NODULES Multiple nodules size: >8 mm * Low risk patients: follow-up at 3-6 months, then consider further follow-up at 18-24 months * high risk patients: follow-up at 3-6 months, then at 18-24 months if no change Note: newly detected indeterminate nodule in persons 35 years of age or older. * Low risk patients: minimal or absent history of smoking and/or other known risk factors * high risk patients: history of smoking or of other known risk factors (e.g. first degree relative with lung cancer, or exposure to asbestos, radon, uranium) * if a nodule up to 8 mm is partly solid or is ground glass further follow-up is required after 24 months to exclude possible slow growing adenocarcinoma (RICK) The above report was generated using voice recognition software. It may contain grammatical, syntax or spelling errors. Electronically signed by: Sixto Breaux M.D. 12/27/2017 2:02 PM Dictated Date/Time: 12/27/2017 1:51 PM
== END | disposition home or self-care (01) ==
LOC: C.CTS 12:33
PROVIDERS: ATTEND Physician Assistant
DX: R91.8 Other nonspecific abnormal finding of lung field (principal)

== ENCOUNTER → 2018-01-01 | Outpatient (CLI) | payer OTHER, BC ==
[~2018-01-01] MED LIST changes: -ACET-1175 PO; +CYCL0.05 OP; -CYCL0.05 OPB; -LEVO1TAB35 PO; -LOSA50TA6 PO; -NITR-5 PO; -ONDA4TAB9 PO; -ROPI1TAB29 PO
--- NOTE | 2018-01-01 08:48 | DIAGNOSTIC IMAGING REPORT ---
ULTRASOUND ABDOMEN COMPLETE CLINICAL HISTORY: Chronic kidney disease. Abnormal liver function studies. COMPARISON STUDY: Abdominal CT dated 08/04/2016. TECHNIQUE: Real-time, grayscale, and color flow sonography of the abdomen was performed. Images are reviewed in the transverse and longitudinal planes. FINDINGS: Liver: The liver is normal in size and echotexture. There is no intrahepatic biliary ductal dilatation. The main portal vein is patent. Gallbladder: There are calcified gallstones. There is no gallbladder wall thickening or pericholecystic fluid. A sonographic Dumont's sign is reportedly absent. The common bile duct measures up to 0.6 cm in diameter. Pancreas: Not well visualized due to overlying bowel gas. Spleen: The spleen is normal in size and echotexture, measuring 11.0 cm in length. There are numerous calcified splenic granulomas. Kidneys: The kidneys are atrophic. There is no hydronephrosis. The right kidney measures 11.4 cm in length and the left kidney measures 11.4 cm in length. No shadowing calculi are identified. Abdominal vasculature: Not well visualized due to overlying bowel gas. Peritoneum: There is no abdominal ascites. A 7.7 cm chronic complex structure along the ventral abdominal midline is unchanged from 2016 and likely represents post hernia repair change. IMPRESSION: 1. Cholelithiasis without sonographic evidence of acute cholecystitis. 2. The kidneys demonstrate cortical atrophy and are without hydronephrosis. 3. A complex structure along the ventral abdominal wall is unchanged dating back to 08/04/2016 and is likely related to previous hernia repair. Electronically signed by: Jayson Joaquin M.D. 01/01/2018 8:47 AM Dictated Date/Time: 01/01/2018 8:38 AM
[2018-01-01 11:20] LABS: ALBUMIN 3.5 gm/dl (3.4-5.0); ALT/SGPT 19 U/L (12-78); AST/SGOT 12 U/L (15-37); BLOOD UREA NITROGEN 19 mg/dl (7-18); CALCIUM 9.8 mg/dl (8.5-10.1); CARBON DIOXIDE 28 mmol/L (21-32); CREATININE 1.25 mg/dl (0.60-1.20); GLUCOSE 104 mg/dl (70-99); POTASSIUM 3.7 mmol/L (3.5-5.1); SODIUM 138 mmol/L (136-145)
[2018-01-01 11:23] LABS: ALKALINE PHOSPHATASE 97 U/L (45-117); TOTAL PROTEIN 6.7 gm/dl (6.4-8.2)
[2018-01-01 11:27] LABS: BASO % 0.3 %; BASO ABS # 0.03 K/uL (0-0.2); EOS % 1.8 %; EOS ABS # 0.19 K/uL (0-0.5); HEMATOCRIT 37.9 % (37-47); HEMOGLOBIN 12.6 g/dL (12.0-16.0); LYMPH % 22.4 %; MEAN CELL VOLUME 106.5 fL (80-100); MEAN CORPUSCULAR HEMOGLOBIN 35.4 pg (25-34); MEAN CORPUSCULAR HGB CONC 33.2 g/dl (32-36); MEAN PLATELET VOLUME 12.7 fL (7.4-10.4); MONO ABS # 1.75 K/uL (0.11-0.59); NEUT % 56.6 %; NEUT ABS # 5.82 K/uL (1.4-6.5); PLATELET COUNT 180 K/uL (130-400); RED CELL DISTRIBUTION WIDTH CV 16.1 % (11.5-14.5); RED CELL DISTRIBUTION WIDTH SD 62.1 fL (36.4-46.3); WHITE BLOOD COUNT 10.29 K/uL (4.8-10.8)
[2018-01-01 12:09] LABS: HEP C IGG 13 YRS+OLDER_RFLX NEG (NEG)
[2018-01-02 13:44] LABS: HEPATITIS A IGM TC 51813E NON-REACTIVE (NON-REACTIVE); HEPATITIS B CORE IGM TC51854R NON-REACTIVE (NON-REACTIVE)
== END | disposition home or self-care (01) ==
LOC: C.ULTRBC 07:48
PROVIDERS: ATTEND Internal Medicine Geriatric Medicine
DX: R79.89 Other specified abnormal findings of blood chemistry (principal); Q99.8 Other specified chromosome abnormalities; D72.829 Elevated white blood cell count, unspecified; N18.9 Chronic kidney disease, unspecified; K80.20 Calculus of gallbladder without cholecystitis without obstruction; R93.5 Abnormal findings on diagnostic imaging of other abdominal regions, including retroperitoneum; Z98.890 Other specified postprocedural states

== ENCOUNTER → 2018-01-06 | Outpatient (CLI) | payer OTHER, BC ==
--- NOTE | 2018-01-06 11:37 | DIAGNOSTIC IMAGING REPORT ---
CHEST 2 VIEWS ROUTINE CLINICAL HISTORY: Cough. Shortness of breath. COMPARISON STUDY: Chest CT December 27, 2017. FINDINGS: Calcified mediastinal and right hilar lymph nodes are again noted. There are cholecystectomy clips. Postoperative findings within the right lung are noted. Old right-sided rib deformities are present. There is no pneumothorax or pleural effusion. There is no radiographic evidence of pulmonary edema. Mild interstitial thickening is unchanged and probably chronic. Lateral right lower lung interstitial thickening and opacity is similar to exam of December 27, 2017. This is also shown on exam of September 20, 2017. IMPRESSION: Lateral right lower lung interstitial thickening and opacity which is similar to chest CT of December 27, 2017. This is likely chronic. No definite acute cardiopulmonary findings. Electronically signed by: Shailesh Luu M.D. 01/06/2018 11:36 AM Dictated Date/Time: 01/06/2018 11:32 AM
== END | disposition home or self-care (01) ==
LOC: C.RAD1850 11:12
PROVIDERS: ATTEND Internal Medicine
DX: R06.02 Shortness of breath (principal); R05 Cough; R09.89 Other specified symptoms and signs involving the circulatory and respiratory systems

== ENCOUNTER → 2018-01-22 | Outpatient (CLI) | payer OTHER, BC ==
[~2018-01-22] MED LIST changes: +ACET-1175 PO; -CYCL0.05 OP; +CYCL0.05 OPB; +LOSA50TA6 PO; +NITR-5 PO; +ONDA4TAB9 PO; +ROPI1TAB29 PO
== END | disposition home or self-care (01) ==
LOC: C.LABSPEC 17:15
PROVIDERS: ATTEND Nurse Practitioner Adult Health
DX: N39.41 Urge incontinence (principal); R35.0 Frequency of micturition

== ENCOUNTER 2018-01-25 10:52 | Inpatient (IN) | payer OTHER, BC ==
[~2018-01-25] VITALS: Ht 167.6 cm; Wt 120.4 kg
[~2018-01-25 10:52] MED LIST changes: -ACET-1175 PO; -LOSA50TA6 PO; -NITR-5 PO; -ONDA4TAB9 PO; -ROPI1TAB29 PO
[2018-01-25] MEDS ORDERED: ALBUT/IPRATROP 3MG/0.5MG NEB 3 ML VIAL INH STA (11:10)
[2018-01-25] MEDS ORDERED: ROPI1TAB29 PO (12:32)
[2018-01-25] MEDS ORDERED: LOSA50TA6 PO (12:32)
[2018-01-25] MEDS ORDERED: NITR-5 PO (12:32)
[2018-01-25] MEDS ORDERED: ONDA4TAB9 PO (12:32)
[2018-01-25] MEDS ORDERED: ACET-1175 PO (12:32)
[2018-01-25 12:34] LABS: INFLUENZA A PCR Neg for Influ A (NEG); INFLUENZA B PCR Neg for Influ B (NEG)
[2018-01-25 12:40] LABS: BASO % 0.1 %; BASO ABS # 0.01 K/uL (0-0.2); EOS % 0.1 %; EOS ABS # 0.01 K/uL (0-0.5); HEMATOCRIT 39.6 % (37-47); HEMOGLOBIN 13.5 g/dL (12.0-16.0); IG# 0.12 K/uL (0.00-0.02); LYMPH % 3.6 %; LYMPH ABS # 0.53 K/uL (1.2-3.4); MEAN CELL VOLUME 106.5 fL (80-100); MEAN CORPUSCULAR HEMOGLOBIN 36.3 pg (25-34); MEAN CORPUSCULAR HGB CONC 34.1 g/dl (32-36); MEAN PLATELET VOLUME 12.2 fL (7.4-10.4); MONO ABS # 1.33 K/uL (0.11-0.59); NEUT % 86.4 %; NEUT ABS # 12.79 K/uL (1.4-6.5); PLATELET COUNT 229 K/uL (130-400); RED CELL DISTRIBUTION WIDTH CV 16.7 % (11.5-14.5); RED CELL DISTRIBUTION WIDTH SD 64.6 fL (36.4-46.3); WHITE BLOOD COUNT 14.79 K/uL (4.8-10.8)
--- NOTE | 2018-01-25 12:41 | DIAGNOSTIC IMAGING REPORT ---
CHEST ONE VIEW PORTABLE CLINICAL HISTORY: EVALUATE ALTERED MENTAL STATUS/WEAKNESS COMPARISON STUDY: Chest CT December 27, 2017 and chest radiograph January 06, 2018. FINDINGS: There is no pneumothorax or pleural effusion. Old right-sided rib deformities are noted. There are calcified thoracic lymph nodes. Interstitial thickening has increased. IMPRESSION: Increase in interstitial thickening which may reflect mild pulmonary edema or an infectious process superimposed upon chronic lung disease/granulomatous process. Electronically signed by: Shailesh Luu M.D. 01/25/2018 12:39 PM Dictated Date/Time: 01/25/2018 12:37 PM
[2018-01-25 12:48] LABS: PTT PATIENT 25.9 SECONDS (21.0-31.0)
--- NOTE | 2018-01-25 12:59 | EMERGENCY ROOM VISIT NOTE ---
History Report prepared by Pablo: Raphael Jasmine Under the Supervision of: Dr. Jayson Nelson M.D. First contact with patient: 11:05 Chief Complaint: RESPIRATORY PROBLEMS Stated Complaint: SHORT OF BREATH, ACHES, NO ENERGY History of Present Illness The patient is a 87 year old female who presents to the Emergency Room with complaints of constant shortness of breath beginning yesterday. She also complains of generalized weakness and productive cough. The patient notes that she has a lot of difficulty sleeping last night, and a lot of difficulty waking up this morning. She denies chest pain, fevers, vomiting, or diarrhea. She notes that she felt normal two days ago. The patient currently has a bladder infection for which she is being treated with Nitrofurantoin (originally on Cipro). She is on Xarelto for PE. Nothing has improved her symptoms. The patient has no known sick contacts. She is a resident at [facility]. She has CPAP at home. Source of History: patient Onset: Yesterday Quality: other (shortness of breath) Timing: constant Modifying Factors (Relieving): other (none) Associated Symptoms: + cough (productive), + weakness (generalized), No fevers, No vomiting, No diarrhea Review of Systems See HPI for pertinent positives & negatives. A total of 10 systems reviewed and were otherwise negative. 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 (12) PE (pulmonary embolism) (13) Sepsis (14) Stomach problems Surgical Problems: (1) H/O mastectomy (2) History of back surgery (3) Hx of appendectomy (4) Hx of hernia repair (5) Hx of hysterectomy (6) Hx of resection of liver (7) Hx of total knee replacement Family History Cancer Diabetes mellitus FH: heart disease FHx: gallbladder disease FHx: lung disease Hypertension Social History Smoking Status: Never Smoker Alcohol Use: occasionally Drug Use: none Marital Status: single Housing Status: lives alone Occupation Status: retired Current/Historical Medications Scheduled Allopurinol (Zyloprim), 100 MG PO QAM Azelastine Hcl (Astelin Nasal [place]), 2 SPRAYS NA BID Cholecalciferol (Vitamin D), 1,000 INTER.UNIT PO QAM Cyanocobalamin (Vitamin B12), 1,000 MCG PO QAM Cyclosporine Oph 0.05% (Restasis Oph 0.05%), 1 DROP OPB BID Duloxetine HCl (Cymbalta), 1 CAP PO HS Fentanyl (Duragesic), 50 MCG TD [id number] Fluticasone Prop/Salmeterol (Advair Diskus 500/50 60 Dose), 1 PUFFS INH BID Home O2 Therapy (Oxygen), 2 LITERS INTNAS HS Losartan Potassium (Cozaar), 50 MG PO DAILY Montelukast Sodium (Singulair), 10 MG PO HS Multiple Vitamins W/ Minerals (Centrum), 1 TAB PO QAM Nitrofurantoin Monohyd Macrocr (Macrobid), 100 MG PO BID Omeprazole (Prilosec), 20 MG PO DAILY Polyethylene (Miralax Powder Packet), 17 GM PO QAM Ranitidine (Zantac), 300 MG PO HS Rivaroxaban (Xarelto), 15 MG PO QAM Ropinirole HCl (Ropinirole HCl), 1 TAB PO HS Scheduled PRN Acetaminophen (Tylenol), 325 MG PO Q6 PRN for Pain Ondansetron (Ondansetron HCl), 1 TAB PO Q6H PRN for Nausea Oxycodone Ir (Roxicodone Ir), 5 MG PO Q6H PRN for Pain Allergies Coded Allergies: Enoxaparin (Verified Allergy, Intermediate, RASH, PRURITUS, 08/04/16) Physical Exam Vital Signs Date Time Temp Pulse Resp B/P (MAP) Pulse Ox O2 Delivery O2 Flow Rate FiO2 01/25/18 13:06 101 26 156/74 93 Nasal Cannula 4.0 01/25/18 11:23 86 Room Air 01/25/18 11:22 89 01/25/18 11:12 93 Nasal Cannula 4.0 01/25/18 11:12 89 Room Air 01/25/18 10:58 37.2 98 22 173/94 86 Room Air Physical Exam GENERAL: Patient is in no acute distress. HEENT: No acute trauma, normocephalic atraumatic, mucous membranes moist, no nasal congestion, no scleral icterus. NECK: No stridor, no adenopathy, no meningismus, trachea is midline. LUNGS: Decreased breath sounds bilaterally. Breath sounds equal. Short of breath with speaking. Crackles at the right base. HEART: 2/6 systolic murmur. Mildly tachycardic with a regular rhythm. ABDOMEN: Soft, nontender, bowel sounds positive, no hernias, no peritonitis. EXTREMITIES: No cyanosis, full range of motion of all the joints without pain or difficulty, no signs for acute trauma. Mild to moderate bilateral pedal edema. NEUROLOGIC: Oriented x 3, no acute motor or sensory deficits, no focal weakness. SKIN: No rash, no jaundice, no diaphoresis. Medical Decision & Procedures ER Provider Diagnostic Interpretation: Radiology results as stated below per my review and radiologist interpretation: CHEST ONE VIEW PORTABLE FINDINGS: There is no pneumothorax or pleural effusion. Old right-sided rib deformities are noted. There are calcified thoracic lymph nodes. Interstitial thickening has increased. IMPRESSION: Increase in interstitial thickening which may reflect mild pulmonary edema or an infectious process superimposed upon chronic lung disease/granulomatous process. Electronically signed by: Shailesh Luu M.D. 01/25/2018 12:39 PM Laboratory Results 01/25/18 12:19 Red Blood Count 3.72, Mean Corpuscular Volume 106.5, Mean Corpuscular Hemoglobin 36.3, Mean Corpuscular Hemoglobin Concent 34.1, Mean Platelet Volume 12.2, Neutrophils (%) (Auto) 86.4, Lymphocytes (%) (Auto) 3.6, Monocytes (%) ( Auto) 9.0, Eosinophils (%) (Auto) 0.1, Basophils (%) (Auto) 0.1, Neutrophils # ( Auto) 12.79, Lymphocytes # (Auto) 0.53, Monocytes # (Auto) 1.33, Eosinophils # ( Auto) 0.01, Basophils # (Auto) 0.01 01/25/18 12:19 Test 01/25/18 11:30 01/25/18 12:19 Influenza Type A (RT-PCR) Neg for Influ A (NEG) Influenza Type B (RT-PCR) Neg for Influ B (NEG) White Blood Count 14.79 K/uL (4.8-10.8) Red Blood Count 3.72 M/uL (4.2-5.4) Hemoglobin 13.5 g/dL (12.0-16.0) Hematocrit 39.6 % (37-47) Mean Corpuscular Volume 106.5 fL (80-100) Mean Corpuscular Hemoglobin 36.3 pg (25-34) Mean Corpuscular Hemoglobin Concent 34.1 g/dl (32-36) Platelet Count 229 K/uL (130-400) Mean Platelet Volume 12.2 fL (7.4-10.4) Neutrophils (%) (Auto) 86.4 % Lymphocytes (%) (Auto) 3.6 % Monocytes (%) (Auto) 9.0 % Eosinophils (%) (Auto) 0.1 % Basophils (%) (Auto) 0.1 % Neutrophils # (Auto) 12.79 K/uL (1.4-6.5) Lymphocytes # (Auto) 0.53 K/uL (1.2-3.4) Monocytes # (Auto) 1.33 K/uL (0.11-0.59) Eosinophils # (Auto) 0.01 K/uL (0-0.5) Basophils # (Auto) 0.01 K/uL (0-0.2) RDW Standard Deviation 64.6 fL (36.4-46.3) RDW Coefficient of Variation 16.7 % (11.5-14.5) Immature Granulocyte % (Auto) 0.8 % Immature Granulocyte # (Auto) 0.12 K/uL (0.00-0.02) Prothrombin Time 10.7 SECONDS (9.0-12.0) Prothromb Time International Ratio 1.0 (0.9-1.1) Activated Partial Thromboplast Time 25.9 SECONDS (21.0-31.0) Partial Thromboplastin Ratio 1.0 Anion Gap 6.0 mmol/L (3-11) Est Creatinine Clear Calc Drug Dose 44.7 ml/min Estimated GFR () 48.4 Estimated GFR (Non- 41.7 BUN/Creatinine Ratio 16.3 (10-20) Calcium Level 9.8 mg/dl (8.5-10.1) Magnesium Level 2.0 mg/dl (1.8-2.4) Total Bilirubin 1.0 mg/dl (0.2-1) Aspartate Amino Transf (AST/SGOT) 24 U/L (15-37) Alanine Aminotransferase (ALT/SGPT) 30 U/L (12-78) Alkaline Phosphatase 105 U/L (45-117) Troponin I < 0.015 ng/ml (0-0.045) Pro-B-Type Natriuretic Peptide 148 pg/ml (0-1800) Total Protein 6.6 gm/dl (6.4-8.2) Albumin 3.5 gm/dl (3.4-5.0) Globulin 3.1 gm/dl (2.5-4.0) Albumin/Globulin Ratio 1.1 (0.9-2) Thyroid Stimulating Hormone (TSH) 1.430 uIu/ml (0.300-4.500) Laboratory results reviewed by me. Medications Administered Medications (Trade) Dose Ordered Sig/Shilpa Route Start Time Stop Time Status Last Admin Dose Admin Albuterol/ Ipratropium (Duoneb) 3 ml NOW STAT INH 01/25/18 11:10 01/25/18 11:16 DC 01/25/18 11:28 3 ML Piperacillin Sod/ Tazobactam Sod (Zosyn Iv) 4.5 gm NOW STAT IV 01/25/18 13:07 01/25/18 13:09 DC 01/25/18 13:34 4.5 GM ECG Per My Interpretation Indication: SOB/dyspnea Rate (beats per minute): 88 Rhythm: sinus rhythm Findings: PVC, other (No ST elevation. No PACs. ) ED Course 1108: The patient was evaluated in room C11A. A complete history and physical exam was performed. 1110: Ordered DuoNeb 3 mL INH. 1320: Upon reexamination the patient is resting comfortably. I discussed results and treatment plan with the patient. She verbalizes agreement and understanding. I spoke with Dr. Allen of the [facility]. We discussed the patient's results and findings. The patient will be evaluated by [facility] for further management. Medical Decision The patient is a 87 year old female who presents to the ED with complaints of shortness of breath. Differential diagnoses considered include influenza, flu- like illness, pneumonia, bronchitis, exacerbation of COPD, CHF, cardiac ischemia , NM, anemia and electrolyte imbalance. There is a moderate leukocytosis, this is consistent with infection. No concerning anemia. No significant electrolyte abnormality, kidney failure or hepatitis. No coagulopathy. EKG shows a sinus rhythm with PVCs, no acute ischemia. Cardiac enzyme testing 1 is not consistent with acute cardiac injury. Chest x-ray shows congestion consistent possibly with failure or possibly with pneumonia. No pneumothorax. Influenza testing is negative. Blood cultures are pending. BNP is not elevated making fluid overload less likely. The patient was given a DuoNeb, she received IV Zosyn as antibiotic coverage. Given her presentation, given her history and findings, I suspect the patient has pneumonia. I do think a hospital stay is warranted as she is hypoxic. I spoke to the patient and case management. The on-call hospitalist was consulted and we did discuss the case. Medication Reconcilliation Current Medication List: was personally reviewed by me Blood Pressure Screening Patient's blood pressure: Elevated blood pressure Blood pressure disposition: Referred to PCP Consults Time Called: 1321 Consulting Physician: Dr. Alejandro Crane [facility] Hospitalist Returned Call: [phone] Discussed the patient's case. The patient will be evaluated for further management. Impression Primary Impression: Hypoxia Additional Impression: Pneumonia Scribe Attestation The scribe's documentation has been prepared under my direction and personally reviewed by me in its entirety. I confirm that the note above accurately reflects all work, treatment, procedures, and medical decision making performed by me. Departure Information Dispostion Being Evaluated By Hospitalist Referrals No Doctor, Assigned (PCP) Patient Instructions My [facility] Problem Qualifiers
[2018-01-25 13:00] LABS: ALBUMIN 3.5 gm/dl (3.4-5.0); ALT/SGPT 30 U/L (12-78); AST/SGOT 24 U/L (15-37); BLOOD UREA NITROGEN 19 mg/dl (7-18); CALCIUM 9.8 mg/dl (8.5-10.1); CARBON DIOXIDE 27 mmol/L (21-32); CREATININE 1.18 mg/dl (0.60-1.20); GLUCOSE 155 mg/dl (70-99); POTASSIUM 3.9 mmol/L (3.5-5.1); SODIUM 138 mmol/L (136-145)
[2018-01-25] MEDS ORDERED: PIPERACILLIN/TAZOBACTAM 4.5 GM/100ML D5W IV STA (13:07)
[2018-01-25 13:11] LABS: ALKALINE PHOSPHATASE 105 U/L (45-117); TOTAL PROTEIN 6.6 gm/dl (6.4-8.2)
--- NOTE | 2018-01-25 13:38 | History and Physical ---
History & Physical Date & Time of Service: Jan 25, 2018 at 13:34 Chief Complaint: Short Of Breath, Aches, No Energy Primary Care Physician: Tereso Mendez M.D. 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 The patient presents today with acute onset of extreme fatigue, weakness, and shortness of breath which started last night. The patient notes that upon wakening she was having difficulty waking up being getting around her home. She has had a cough for some time now, but has become productive with white/ clear sputum. The patient normally wears CPAP with 2 L O2 at night and otherwise does not wear supplemental oxygen. She was able to take all her morning medications. She denies any fevers, sweats or chills. Of note the patient has been recently diagnosed with UTI, where she started a course of Cipro on 01/22 which was then changed to Macrobid on 01/23. She has taken 2 doses of this antibiotic. The patient currently resides at the [facility]. Chest x-ray was reviewed showing interstitial thickening possibly pulmonary edema or an infectious process superimposed upon chronic lung disease/ granulomatous process. WBC=14.79. Rapid flu was negative. Patient is requiring 4 L O2 via NC with sats= 86%- this have improved up to the low 90s after a nebulizer treatment. HR slightly elevated at 101. BP equal 173/94 at the time of admission and has improved to 156/74. Patient was started on Zosyn in the ER. Past Medical/Surgical History Medical Problems: (1) Asthma (2) Bronchitis (3) CKD (chronic kidney disease), stage III (4) DCIS (ductal carcinoma in situ) (5) Deep vein blood clot of right lower extremity (6) Hypertension (7) HLD (8) Hx of PE (9) Lung cancer (10) Metabolic acidosis with normal anion gap and failure of bicarbonate regeneration Surgical Problems: (1) H/O mastectomy Bilateral knee replacement surgery s/p liver hemangioma surgery S/p Lung lobe resection hx hysterectomy History of partial hepatectomy History of hernia repair Family History Cancer Diabetes mellitus FH: heart disease FHx: gallbladder disease FHx: lung disease Hypertension Social History Smoking Status: Never Smoker Smokeless Tobacco Use: No Alcohol Use: none Drug Use: none Marital Status: single Housing status: lives alone Occupational Status: retired Immunizations History of Influenza Vaccine: Yes Influenza Vaccine Date: Aug 20, 2010 History of Tetanus Vaccine?: UNSURE History of Pneumococcal: Yes Pneumococcal Date: Aug 13, 2008 History of Hepatitis B Vaccine: Unknown Allergies Coded Allergies: Enoxaparin (Verified Allergy, Intermediate, RASH, PRURITUS, 08/04/16) Home Medications Scheduled Allopurinol (Zyloprim), 100 MG PO QAM Azelastine Hcl (Astelin Nasal [place]), 2 SPRAYS NA BID Cholecalciferol (Vitamin D), 1,000 INTER.UNIT PO QAM Cyanocobalamin (Vitamin B12), 1,000 MCG PO QAM Cyclosporine Oph 0.05% (Restasis Oph 0.05%), 1 DROP OPB BID Duloxetine HCl (Cymbalta), 1 CAP PO HS Fentanyl (Duragesic), 50 MCG TD [id number] Fluticasone Prop/Salmeterol (Advair Diskus 500/50 60 Dose), 1 PUFFS INH BID Home O2 Therapy (Oxygen), 2 LITERS INTNAS HS Losartan Potassium (Cozaar), 50 MG PO DAILY Montelukast Sodium (Singulair), 10 MG PO HS Multiple Vitamins W/ Minerals (Centrum), 1 TAB PO QAM Nitrofurantoin Monohyd Macrocr (Macrobid), 100 MG PO BID Omeprazole (Prilosec), 20 MG PO DAILY Polyethylene (Miralax Powder Packet), 17 GM PO QAM Ranitidine (Zantac), 300 MG PO HS Rivaroxaban (Xarelto), 15 MG PO QAM Ropinirole HCl (Ropinirole HCl), 1 TAB PO HS Scheduled PRN Acetaminophen (Tylenol), 325 MG PO Q6 PRN for Pain Ondansetron (Ondansetron HCl), 1 TAB PO Q6H PRN for Nausea Oxycodone Ir (Roxicodone Ir), 5 MG PO Q6H PRN for Pain Review of Systems Constitutional: No fever, sweats or chills Eyes: No diplopia, no worsening or blurred vision ENT: normal hearing, no trouble swallowing + dry mouth Respiratory: + cough, sputum which is white/clear, difficulty due to feeling SOB with long sentances, + dyspnea at rest and on exertion Cardiovascular: No chest pain, tightness or palpitations Abdomen: No pain, nausea, vomiting, diarrhea or constipation Musculoskeletal: No joint pain, calf pain, + peripheral swelling Neurologic: No weakness, numbness/tingling, or balance problems, uses walker for ambulation Psychiatric: No anxiety or depression Skin: No rash or itch Physical Exam Vital Signs Date Time Temp Pulse Resp B/P (MAP) Pulse Ox O2 Delivery O2 Flow Rate FiO2 01/25/18 13:06 101 26 156/74 93 Nasal Cannula 4.0 01/25/18 11:23 86 Room Air 01/25/18 11:22 89 01/25/18 11:12 93 Nasal Cannula 4.0 01/25/18 11:12 89 Room Air 01/25/18 10:58 37.2 98 22 173/94 86 Room Air General: awake, alert, no apparent distress, morbidly obese Head: Normocephalic, atraumatic ENT: PERRL, EOMI, no pharyngeal exudate, mucous membranes dry Chest: On 4 L via NC, diminished breath sounds throughout, faint crackles bibasilarly, no adventitious breath sounds Cardiac: Regular rate and rhythm, + holosystolic murmur grade III/, no JVD, normal peripheral pulses, good capillary refill Abdominal: NABS x 4 quadrants, soft, nontender to palpation, no rebound, guarding or tenderness Extremities: 1+ peripheral edema BLE, L>R, + mild erythema and warmth over bilateral ankles, calfs nontender to palpation Psych: Normal mood and affect Neuro: AAO x 3, speech is clear, no peripheral sensory deficits Diagnostics Laboratory Results Results Past 24 Hours Test 01/25/18 11:30 01/25/18 12:19 Range/Units Influenza Type A (RT-PCR) Neg for Influ A NEG Influenza Type B (RT-PCR) Neg for Influ B NEG White Blood Count 14.79 4.8-10.8 K/uL Red Blood Count 3.72 4.2-5.4 M/uL Hemoglobin 13.5 12.0-16.0 g/dL Hematocrit 39.6 37-47 % Mean Corpuscular Volume 106.5 80-100 fL Mean Corpuscular Hemoglobin 36.3 25-34 pg Mean Corpuscular Hemoglobin Concent 34.1 32-36 g/dl Platelet Count 229 130-400 K/uL Mean Platelet Volume 12.2 7.4-10.4 fL Neutrophils (%) (Auto) 86.4 % Lymphocytes (%) (Auto) 3.6 % Monocytes (%) (Auto) 9.0 % Eosinophils (%) (Auto) 0.1 % Basophils (%) (Auto) 0.1 % Neutrophils # (Auto) 12.79 1.4-6.5 K/uL Lymphocytes # (Auto) 0.53 1.2-3.4 K/uL Monocytes # (Auto) 1.33 0.11-0.59 K/uL Eosinophils # (Auto) 0.01 0-0.5 K/uL Basophils # (Auto) 0.01 0-0.2 K/uL RDW Standard Deviation 64.6 36.4-46.3 fL RDW Coefficient of Variation 16.7 11.5-14.5 % Immature Granulocyte % (Auto) 0.8 % Immature Granulocyte # (Auto) 0.12 0.00-0.02 K/uL Prothrombin Time 10.7 9.0-12.0 SECONDS Prothromb Time International Ratio 1.0 0.9-1.1 Activated Partial Thromboplast Time 25.9 21.0-31.0 SECONDS Partial Thromboplastin Ratio 1.0 Sodium Level 138 136-145 mmol/L Potassium Level 3.9 3.5-5.1 mmol/L Chloride Level 105 98-107 mmol/L Carbon Dioxide Level 27 21-32 mmol/L Anion Gap 6.0 3-11 mmol/L Blood Urea Nitrogen 19 7-18 mg/dl Creatinine 1.18 0.60-1.20 mg/dl Est Creatinine Clear Calc Drug Dose 44.7 ml/min Estimated GFR () 48.4 Estimated GFR (Non- 41.7 BUN/Creatinine Ratio 16.3 10-20 Random Glucose 155 70-99 mg/dl Calcium Level 9.8 8.5-10.1 mg/dl Magnesium Level 2.0 1.8-2.4 mg/dl Total Bilirubin 1.0 0.2-1 mg/dl Aspartate Amino Transf (AST/SGOT) 24 15-37 U/L Alanine Aminotransferase (ALT/SGPT) 30 12-78 U/L Alkaline Phosphatase 105 45-117 U/L Troponin I < 0.015 0-0.045 ng/ml Pro-B-Type Natriuretic Peptide 148 0-1800 pg/ml Total Protein 6.6 6.4-8.2 gm/dl Albumin 3.5 3.4-5.0 gm/dl Globulin 3.1 2.5-4.0 gm/dl Albumin/Globulin Ratio 1.1 0.9-2 Thyroid Stimulating Hormone (TSH) 1.430 0.300-4.500 uIu/ml Microbiology Results 01/25/18 Blood Culture, Received Pending 01/25/18 Blood Culture, Received Pending Diagnostic Radiology CHEST ONE VIEW PORTABLE CLINICAL HISTORY: EVALUATE ALTERED MENTAL STATUS/WEAKNESS COMPARISON STUDY: Chest CT December 27, 2017 and chest radiograph January 06, 2018. FINDINGS: There is no pneumothorax or pleural effusion. Old right-sided rib deformities are noted. There are calcified thoracic lymph nodes. Interstitial thickening has increased. IMPRESSION: Increase in interstitial thickening which may reflect mild pulmonary edema or an infectious process superimposed upon chronic lung disease/granulomatous process. Electronically signed by: Shailesh Luu M.D. 01/25/2018 12:39 PM Dictated Date/Time: 01/25/2018 12:37 PM The status of this report is Signed. EKG Sinus rhythm with occasional Premature ventricular complexes Left axis deviation Abnormal ECG When compared with ECG of 04-AUG-2016 11:17, Premature ventricular complexes are now Present Inverted T waves have replaced nonspecific T wave abnormality in Inferior leads Vent. 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 HR slightly elevated, BP improving. - Rapid flu was negative. - Patient is requiring 4 L O2 via NC with sats= 86%- this have improved up to the low 90s after a nebulizer treatment. -Place the patient on Levaquin, ceftriaxone for pneumonia -Supportive care with O2 protocol, Xopenex nebulizers, Mucinex, flutter, incentive spirometry, sputum culture -Continue the patient on her home CPAP HS -CXR reviewed showing interstitial thickening possibly pulmonary edema or an infectious process superimposed upon chronic lung disease/granulomatous process. -Continue Advair as per home meds - Follows with Dr. Cool as an outpatient. ? Possible BLE cellulitis -Increased erythema and edema bilateral lower extremities around the ankles, but antibiotics would cover. Possible that this is due to increased swelling - No mechanical DVT ppx with possibility of skin breakdown. HTN HLD Lower extremity swelling - Continue cozaar, statin therapy Hx of PE/ DVT - Continue xarelto 15 mg daily Hx DCIS - s/p R mastectomy - stable, in remission Hx liver hemiangioma- resolved Hx of Lung carcinoma- s/p lung resection - resolved CKD stage III - Stable, follow prp Morbid obesity, BMI 42.0 - Diet and exercise should be encouraged - Uses a walker with ambulation at baseline - PT/OT DVT ppx: teds, scds, xarelto CODE STATUS: DNR Disposition: from [facility], PT/OT to evaluate, lives alone Resuscitation Status VTE Prophylaxis Will order VTE Prophylaxis: No Reason for no VTE drug order: Treatment not indicated (on xarelto) Reason no Mechanical VTE Order: Contraindicated Reviewed: Pt Seen/Exam by Me History Pt with worsening SOB. Feeling a bit improved s/p ED interventions. Has been eating at home. Agree with HPI/ROS as noted by PA General Appearance: no apparent distress, obese Eye Exam: bilateral eye normal inspection, bilateral eye other (nml sclera) Respiratory: no respiratory distress, crackles Cardiovascular: normal peripheral pulses, regular rate, rhythm Gastrointestinal: non tender, soft Extremities: non-tender, no pedal edema Neurologic/Psychiatric: alert, oriented x 3 Skin Characteristics: normal color, warm/dry Assessment/Plan Agree with plan as outlined above PNA on CXR Outpt UTI Possible cellulitis levaquin, ceftriaxone
[2018-01-25] MEDS ORDERED: COUGH DROP (SUGAR FREE) LOZ 24 LOZ/1 BOX LOZ PRN (14:15)
[2018-01-25] MEDS ORDERED: FENTANYL 50 MCG/HR TDSY TD SCH (14:15)
[2018-01-25] MEDS ORDERED: ACETAMINOPHEN 325 MG TAB PO PRN (14:15)
[2018-01-25 15:30] VITALS: BP 129/62; PULSE 102; TEMP 36.6; O2SAT 97; Ht 167.6 cm; Wt 120.4 kg
[2018-01-25 16:00] VITALS: BP 124/50; PULSE 108; TEMP 36.7; O2SAT 95
[2018-01-25] MEDS: RESTASIS~ORDER AWAITING ACTION SCH (16:00)
[2018-01-25 17:38] VITALS: PULSE 95; O2SAT 92
[2018-01-25] MEDS: LEVOFLOXACIN / D5W 750 MG in PREMIXED IN D5W 150 ML IV SCH (17:43)
[2018-01-25] MEDS: CHECK FENTANYL PATCH PLACEMENT SCH (17:44)
[2018-01-25] MEDS: CEFTRIAXONE SOD INJ 500 MG in DEXTROSE 5% 50ML 50 ML IV SCH (19:03)
[2018-01-25 20:00] VITALS: BP 108/43; PULSE 98; TEMP 36.9; O2SAT 96
[2018-01-25 20:25] VITALS: PULSE 101; O2SAT 95
[2018-01-25] MEDS: GUAIFENESIN 600 MG TABCR PO SCH (20:38)
[2018-01-25] MEDS: FLUTICASONE/SALMETEROL (ADVAIR) 500/50 INH 14 PUFF INH SCH (20:38)
[2018-01-25] MEDS: RANITIDINE HCL 150 MG TAB PO SCH (20:38)
[2018-01-25] MEDS: DULOXETINE (CYMBALTA) 30 MG CAP PO SCH (20:38)
[2018-01-25] MEDS: ROPINIROLE HCL 1 MG TAB PO SCH (20:38)
[2018-01-25] MEDS: MONTELUKAST SOD 10 MG TAB PO SCH (20:38)
[2018-01-25 22:33] VITALS: BP 108/43; PULSE 101; TEMP 36.9; O2SAT 95
[2018-01-26] VITALS (14 sets, daily range): BP systolic 104–128; BP diastolic 52–75; PULSE 75–104; TEMP 35.9–37; O2SAT 90–97
[2018-01-26] MEDS: CHECK FENTANYL PATCH PLACEMENT SCH ×4 (00:08→23:22)
[2018-01-26 07:48] LABS: BASO % 0.3 %; BASO ABS # 0.04 K/uL (0-0.2); EOS % 0.8 %; EOS ABS # 0.11 K/uL (0-0.5); HEMATOCRIT 35.5 % (37-47); HEMOGLOBIN 11.8 g/dL (12.0-16.0); IG# 0.26 K/uL (0.00-0.02); LYMPH % 8.2 %; MEAN CORPUSCULAR HEMOGLOBIN 35.2 pg (25-34); MEAN CORPUSCULAR HGB CONC 33.2 g/dl (32-36); MEAN PLATELET VOLUME 11.6 fL (7.4-10.4); MONO % 9.8 %; MONO ABS # 1.43 K/uL (0.11-0.59); NEUT % 79.1 %; NEUT ABS # 11.54 K/uL (1.4-6.5); PLATELET COUNT 184 K/uL (130-400); RED CELL DISTRIBUTION WIDTH CV 17.2 % (11.5-14.5); WHITE BLOOD COUNT 14.58 K/uL (4.8-10.8)
[2018-01-26] MEDS: RESTASIS~ORDER AWAITING ACTION SCH ×4 (07:49→23:22)
[2018-01-26] MEDS: POLYETHYLENE (MIRALAX) 17 GM PACK PO SCH (07:56)
[2018-01-26] MEDS: RIVAROXABAN TAB 15 MG TAB PO SCH (07:57)
[2018-01-26] MEDS: CHOLECALCIFEROL 1000 INTER.UNIT TAB PO SCH (07:57)
[2018-01-26] MEDS: ALLOPURINOL 100 MG TAB PO SCH (07:57)
[2018-01-26] MEDS: FLUTICASONE/SALMETEROL (ADVAIR) 500/50 INH 14 PUFF INH SCH ×2 (07:57→20:32)
[2018-01-26] MEDS: GUAIFENESIN 600 MG TABCR PO SCH ×2 (07:58→20:32)
[2018-01-26] MEDS: CYANOCOBALAMIN 500 MCG TAB (VIT B-12) PO SCH (07:58)
[2018-01-26] MEDS: CEROVITE ADV FORMULA TAB PO SCH (07:58)
[2018-01-26] MEDS: PANTOprazole SOD 40 MG TAB PO SCH (07:58)
[2018-01-26] MEDS: LOSARTAN POTASSIUM 50 MG TAB PO SCH (07:58)
[2018-01-26] MEDS: FENTANYL PATCH REMOVE & WASTE SCH (07:59)
[2018-01-26 08:28] LABS: CALCIUM 9.1 mg/dl (8.5-10.1); CREATININE 1.63 mg/dl (0.60-1.20); POTASSIUM 3.9 mmol/L (3.5-5.1)
[2018-01-26] MEDS: FENTANYL 50 MCG/HR TDSY TD SCH (09:14)
--- NOTE | 2018-01-26 09:22 | Clinical Documentation Query ---
CLINICAL DOCUMENTATION QUERY Dr. LEY, In your clinical opinion is this patient being managed for: ( ) Acute kidney failure ( ) Not Agree ( ) Other explanation of clinical findings (Please Explain) ( ) Unable to determine (Please Define) ( ) Need to Discuss The medical record reflects the following clinical findings, treatment, and risk factors. Clinical Indicators: 87 yo female presenting with pneumonia. Initial Cr 1.18 and has trended up to Cr 1.63. Treatment:monitor PRP's Risk Factors: hypertension, pneumonia, hypoxia, CKD stage III Please clarify and document your clinical opinion in the progress notes and discharge summary. Terms such as "probable", "suspected", "likely", "questionable", "possible", or "still to be ruled out" are acceptable. IF IN AGREEMENT, YOU MUST DOCUMENT ABOVE DIAGNOSTIC STATEMENT IN DAILY PROGRESS NOTES AND DISCHARGE SUMMARY. This document is not part of the patient's record. Thank You, Karyn Bustillos, RN [phone]
[2018-01-26] MEDS: OXYCODONE HCL IR 5 MG TAB (IMMEDIATE RELEASE) PO PRN ×2 (15:22→22:19)
[2018-01-26] MEDS: LEVOFLOXACIN / D5W 750 MG in PREMIXED IN D5W 150 ML IV SCH (15:23)
[2018-01-26] MEDS ORDERED: ROPINIROLE HCL 0.25 MG TAB PO ONE (16:15)
[2018-01-26] MEDS ORDERED: NURSING VERBAL MED ORDER ONE (16:15)
--- NOTE | 2018-01-26 17:32 | Hospitalist Progress Note ---
Hospitalist Progress Note Date of Service Jan 26, 2018. (Radha Lane, JORGEC) Subjective Pt evaluation today including: conversation w/ patient, physical exam, chart review, lab review, review of studies, review of inpatient medication list Patient seen and evaluated. Reporting feeling much better today. Would like to return home however still requiring supplemental O2 and mild MICHI is present on labs. Says she doesn't feel SOB and continues to have a cough that is mildly productive. She is reporting slightly increased swelling of lower extremities compared to baseline but redness seems to have resolved Constitutional: No fever, No chills Respiratory: + cough, No shortness of breath Cardiovascular: No chest pain Abdomen: No pain, No nausea, No vomiting, No diarrhea, No constipation Musculoskeletal: + swelling (slightly worse b/l lower extremity edema), No calf pain Female : No dysuria Heme: No abnormal bleeding/bruising (Radha Lane, CARLEY-C) Medications Current Inpatient Medications Medications (Trade) Dose Ordered Sig/Shilpa Route Start Time Stop Time Status Last Admin Dose Admin Acetaminophen (Tylenol Tab) 650 mg Q4H PRN PO 01/25/18 14:15 02/24/18 14:14 Ondansetron HCl (Zofran Inj) 4 mg Q6H PRN IV 01/25/18 14:15 02/24/18 14:14 Polyethylene (Miralax Powder Packet) 17 gm DAILY PO 01/26/18 09:00 02/25/18 08:59 01/26/18 07:56 17 GM Acetaminophen (Tylenol Tab) 325 mg Q6 PRN PO 01/25/18 14:15 02/24/18 14:14 Allopurinol (Zyloprim Tab) 100 mg QAM PO 01/26/18 09:00 02/25/18 08:59 01/26/18 07:57 100 MG Cholecalciferol (Vitamin D Tab) 1,000 inter.unit QAM PO 01/26/18 09:00 02/25/18 08:59 01/26/18 07:57 1,000 INTER.UNIT Duloxetine HCl (Cymbalta Cap) 30 mg HS PO 01/25/18 21:00 02/24/18 20:59 01/25/18 20:38 30 MG Salmeterol Xinafoate/ Fluticasone (Advair Diskus 500/50 Inh) 1 puff BID INH 01/25/18 21:00 02/24/18 20:59 01/26/18 07:57 1 PUFF Losartan Potassium (coZAAR TAB) 50 mg DAILY PO 01/26/18 09:00 02/25/18 08:59 01/26/18 07:58 50 MG Montelukast Sodium (Singulair Tab) 10 mg HS PO 01/25/18 21:00 02/24/18 20:59 01/25/18 20:38 10 MG Multivitamins/ Minerals (Multivitamin W/ Minerals Tab) 1 tab QAM PO 01/26/18 09:00 02/25/18 08:59 01/26/18 07:58 1 TAB Oxycodone HCl (Roxicodone Immediate Rel Tab) 5 mg Q6H PRN PO 01/25/18 14:15 02/08/18 14:14 01/26/18 15:22 5 MG Rivaroxaban (Xarelto Tab) 15 mg QAM PO 01/26/18 09:00 02/25/18 08:59 01/26/18 07:57 15 MG Ropinirole HCl (Requip Tab) 1 mg HS PO 01/25/18 21:00 02/24/18 20:59 01/25/18 20:38 1 MG Cyanocobalamin (Vitamin B-12 Tab) 1,000 mcg QAM PO 01/26/18 09:00 02/25/18 08:59 01/26/18 07:58 1,000 MCG Miscellaneous Information (Order Awaiting Action) 1 ea QS N/A 01/25/18 16:00 02/24/18 15:59 Pantoprazole Sodium (Protonix Tab) 40 mg QAM PO 01/26/18 09:00 02/25/18 08:59 01/26/18 07:58 40 MG Ranitidine HCl (zANTac TAB) 300 mg HS PO 01/25/18 21:00 02/24/18 20:59 01/25/18 20:38 300 MG Menthol (Nice Lana) 1 lana Q1H PRN LANA 01/25/18 14:15 02/24/18 14:14 Guaifenesin (Mucinex Contr Rel Tab) 1,200 mg Q12 PO 01/25/18 21:00 02/24/18 20:59 01/26/18 07:58 1,200 MG Levofloxacin 750 mg/Prmx 150 ml @ 100 mls/hr Q24H IV 01/25/18 16:00 02/01/18 15:59 01/26/18 15:23 100 MLS/HR Ceftriaxone Sodium 500 mg/ Dextrose 55 ml @ 100 mls/hr DAILY@1800 IV 01/25/18 18:00 02/01/18 17:59 01/25/18 19:03 100 MLS/HR Fentanyl (Duragesic Patch) 50 mcg Q3D TD 01/26/18 09:00 02/09/18 08:59 01/26/18 09:14 50 MCG Miscellaneous (Fentanyl Patch Remove & Waste) 1 ea Q3D N/A 01/26/18 08:59 02/25/18 08:58 01/26/18 07:59 1 EA Miscellaneous Information (Check Fentanyl Patch Placement) 1 ea QS N/A 01/25/18 16:00 02/24/18 15:59 01/26/18 15:23 1 EA (Radha Lane PA-C) Objective Vital Signs Date Time Temp Pulse Resp B/P (MAP) Pulse Ox O2 Delivery O2 Flow Rate FiO2 01/26/18 16:23 97 93 01/26/18 15:36 36.5 94 18 114/70 (85) 93 Nasal Cannula 4.0 01/26/18 12:30 Nasal Cannula 4.0 01/26/18 11:30 36.7 77 20 121/56 (77) 94 Nasal Cannula 4.0 01/26/18 08:15 Nasal Cannula 4.0 01/26/18 07:29 35.9 76 20 128/64 (85) 96 BiPAP 01/26/18 05:34 36.9 76 20 104/63 (77) 97 CPAP 01/26/18 04:42 75 95 45 01/26/18 04:00 CPAP 45 01/26/18 00:30 101 96 45 01/26/18 00:00 CPAP 45 01/26/18 00:00 36.6 104 17 104/57 (73) 93 CPAP 45 01/25/18 22:33 36.9 101 18 95 4.0 01/25/18 21:02 CPAP 45 01/25/18 20:25 101 95 45 01/25/18 20:00 36.9 98 18 108/43 (64) 96 CPAP 45 01/25/18 17:41 CPAP 45 01/25/18 17:38 95 92 45 (Radha Lane, JORGEC) Physical Exam General Appearance: WD/WN, no apparent distress Eyes: sclerae normal ENT: hearing grossly normal Neck: supple, no JVD, trachea midline Respiratory/Chest: no respiratory distress, no accessory muscle use, + rhonchi (R base), + pertinent finding (adequate airflow with respirations - no wheeze) Cardiovascular: regular rate, rhythm, no gallop, no murmur Abdomen: normal bowel sounds, non tender, soft Extremities: + swelling (b/l 1+ pitting edema to lower extremities; skin is dry and flaky; no erythema) Neurologic/Psychiatric: alert Skin: normal color (Radha Lane, PA-C) Laboratory Results Last 24 Hours Test 01/25/18 18:15 01/26/18 01:45 01/26/18 07:28 Troponin I < 0.015 ng/ml < 0.015 ng/ml White Blood Count 14.58 K/uL Red Blood Count 3.35 M/uL Hemoglobin 11.8 g/dL Hematocrit 35.5 % Mean Corpuscular Volume 106.0 fL Mean Corpuscular Hemoglobin 35.2 pg Mean Corpuscular Hemoglobin Concent 33.2 g/dl Platelet Count 184 K/uL Mean Platelet Volume 11.6 fL Neutrophils (%) (Auto) 79.1 % Lymphocytes (%) (Auto) 8.2 % Monocytes (%) (Auto) 9.8 % Eosinophils (%) (Auto) 0.8 % Basophils (%) (Auto) 0.3 % Neutrophils # (Auto) 11.54 K/uL Lymphocytes # (Auto) 1.20 K/uL Monocytes # (Auto) 1.43 K/uL Eosinophils # (Auto) 0.11 K/uL Basophils # (Auto) 0.04 K/uL RDW Standard Deviation 66.0 fL RDW Coefficient of Variation 17.2 % Immature Granulocyte % (Auto) 1.8 % Immature Granulocyte # (Auto) 0.26 K/uL Sodium Level 138 mmol/L Potassium Level 3.9 mmol/L Chloride Level 105 mmol/L Carbon Dioxide Level 27 mmol/L Anion Gap 6.0 mmol/L Blood Urea Nitrogen 28 mg/dl Creatinine 1.63 mg/dl Est Creatinine Clear Calc Drug Dose 33.0 ml/min Estimated GFR () 32.7 Estimated GFR (Non- 28.2 BUN/Creatinine Ratio 17.0 Random Glucose 115 mg/dl Calcium Level 9.1 mg/dl (Radha Lane PA-C) Assessment and Plan This is a 87 yo F with PMHx of DCIS status post right mastectomy, history of liver hemangioma, pulmonary nodules, 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 Pt is being admitted for pneumonia Sepsis from Pneumonia with Chronic Lung Granulomatous Disease/Bronchoalveolar Lung CA S/P R Lobe Wedge Resection (2009) and CARLITOS on night CPAP and likely Obesity Hypoventilation Syndrome - Continue to wean O2 to maintain saturations > 90% - Levofloxacin 750 mg IV daily - Continue home CPAP - may use own device - Xopenex nebs, Advair 1 puff BID, Singulair 10 mg HS, and Mucinex 1200 Q12H MICHI on CKD Stage III: - Mild elevation in Cr - will continue to monitor - will hold on IVF at this time due to mildly hypervolemic on imaging and assess in AM - maybe mild elevation due to volume overload? May need to adjust some meds if this does not improve tomorrow - will obtain some fluids with intermittent IV Abx Possible BLE Cellulitis: RESOLVED - No erythema on examination - will continue to monitor - may be element of venous stasis HTN/HLD: - Losartan 50 mg daily H/O PE/ DVT - Xarelto 15 mg daily Morbid Obesity, BMI 42.0 - Diet and exercise should be encouraged - Uses a walker with ambulation at baseline - PT/OT CODE STATUS: DNR Disposition: From [facility] - Possible two-step prior to D/C - possible D/C tomorrow or next day Continued [facility] stay due to: multiple IV medications needed Discharge planning: home ([facility]) (Radha Lane PA-C) Supervising Note Dr. Calero I performed a history and physical examination on the patient. I reviewed above note and agree with it. I discussed plan with APC and patient. During my face to face encounter with the patient, I answered all of the patient's questions. Patient has spasmodic dysphonia. Patient normally requires oxygen at home. I agree that she likely does not have cellulitis. Will continue the cephalosporin for now, but not on discharge. May consider azithromycin M,W,F to decrease COPD exacerbations. (Avelino Calero M.D.)
[2018-01-26] MEDS: CEFTRIAXONE SOD INJ 500 MG in DEXTROSE 5% 50ML 50 ML IV SCH (17:40)
[2018-01-26] MEDS: LEVALBUTEROL 1.25MG/0.5ML NEB INH SCH (19:48)
[2018-01-26] MEDS: MONTELUKAST SOD 10 MG TAB PO SCH (20:32)
[2018-01-26] MEDS: DULOXETINE (CYMBALTA) 30 MG CAP PO SCH (20:32)
[2018-01-26] MEDS: ROPINIROLE HCL 1 MG TAB PO SCH (20:33)
[2018-01-26] MEDS: RANITIDINE HCL 150 MG TAB PO SCH (20:33)
[2018-01-27] VITALS (10 sets, daily range): BP systolic 101–153; BP diastolic 53–86; PULSE 69–106; TEMP 36.3–37; O2SAT 62–96
[2018-01-27 06:30] LABS: HEMATOCRIT 35.3 % (37-47); HEMOGLOBIN 11.9 g/dL (12.0-16.0); MEAN CELL VOLUME 105.4 fL (80-100); MEAN CORPUSCULAR HEMOGLOBIN 35.5 pg (25-34); MEAN CORPUSCULAR HGB CONC 33.7 g/dl (32-36); MEAN PLATELET VOLUME 11.7 fL (7.4-10.4); PLATELET COUNT 166 K/uL (130-400); RED CELL DISTRIBUTION WIDTH CV 16.7 % (11.5-14.5); WHITE BLOOD COUNT 7.53 K/uL (4.8-10.8)
[2018-01-27] MEDS: LEVALBUTEROL 1.25MG/0.5ML NEB INH SCH ×3 (06:52→19:28)
[2018-01-27 06:54] LABS: CALCIUM 9.5 mg/dl (8.5-10.1); CREATININE 1.4 mg/dl (0.60-1.20); POTASSIUM 3.8 mmol/L (3.5-5.1)
[2018-01-27] MEDS: RESTASIS~ORDER AWAITING ACTION SCH ×2 (07:20→15:43)
[2018-01-27] MEDS: FLUTICASONE/SALMETEROL (ADVAIR) 500/50 INH 14 PUFF INH SCH ×2 (07:20→19:42)
[2018-01-27] MEDS: POLYETHYLENE (MIRALAX) 17 GM PACK PO SCH (07:20)
[2018-01-27] MEDS: LOSARTAN POTASSIUM 50 MG TAB PO SCH (07:22)
[2018-01-27] MEDS: RIVAROXABAN TAB 15 MG TAB PO SCH (07:22)
[2018-01-27] MEDS: ALLOPURINOL 100 MG TAB PO SCH (07:22)
[2018-01-27] MEDS: CHOLECALCIFEROL 1000 INTER.UNIT TAB PO SCH (07:22)
[2018-01-27] MEDS: GUAIFENESIN 600 MG TABCR PO SCH ×2 (07:22→19:43)
[2018-01-27] MEDS: PANTOprazole SOD 40 MG TAB PO SCH (07:22)
[2018-01-27] MEDS: CYANOCOBALAMIN 500 MCG TAB (VIT B-12) PO SCH (07:22)
[2018-01-27] MEDS: CEROVITE ADV FORMULA TAB PO SCH (07:22)
[2018-01-27] MEDS: CHECK FENTANYL PATCH PLACEMENT SCH ×2 (07:23→15:43)
--- NOTE | 2018-01-27 11:01 | Progress Note ---
Subjective Date of Service: Jan 27, 2018. Subjective Pt evaluation today including: conversation w/ patient 87 yo female with home oxygen, h/o Asthma, COPD. requires oxygen at night and on ambulation. However she does not normally wear oxygen at home. Recently treated with COPD exacerbation on DEC 31 with steroid taper and antibiotics Patient followed for several years with Dr. Hernandez for history obstructive lung disease and right-sided lung cancer. She also had h/o bilateral pulmonary embolism with a saddle pulmonary embolus 11/2010 with associated RLE-DVT. She has been on Xarelto since that time. Additionally she has been following for her history of lung cancer. She does have 2 additional pulmonary nodules which have been present followed with serial CT. Patient reports having some mild dyspnea today but states being close to her baseline. Problem List Medical Problems: (1) Acute renal failure Status: Acute (2) Cellulitis Status: Acute (3) Cellulitis of right leg Status: Acute (4) Cellulitis of right leg Status: Acute (5) Cellulitis of right lower leg Status: Acute (6) Falling Status: Acute (7) Hematuria Status: Acute (8) Hypoxia Status: Acute (9) Low back pain Status: Acute (10) Pneumonia Status: Acute (11) Pyuria Status: Acute (12) Right arm weakness Status: Acute (13) Stomach problems Status: Chronic Review of Systems Constitutional: No fever, No chills Eyes: No worsening of vision ENT: No hearing loss Respiratory: + cough, + wheezing, + shortness of breath Cardiac: No chest pain Abdomen: No pain Neurologic: No memory loss Psychiatric: No depression symptoms Heme: No abnormal bleeding/bruising Endo: No fatigue Skin: No rash All Other Systems: Reviewed and Negative Medications Current Inpatient Medications Medications (Trade) Dose Ordered Sig/Shilpa Route Start Time Stop Time Status Last Admin Dose Admin Acetaminophen (Tylenol Tab) 650 mg Q4H PRN PO 01/25/18 14:15 02/24/18 14:14 01/28/18 06:00 650 MG Ondansetron HCl (Zofran Inj) 4 mg Q6H PRN IV 01/25/18 14:15 02/24/18 14:14 01/28/18 08:42 4 MG Polyethylene (Miralax Powder Packet) 17 gm DAILY PO 01/26/18 09:00 02/25/18 08:59 01/28/18 07:42 17 GM Acetaminophen (Tylenol Tab) 325 mg Q6 PRN PO 01/25/18 14:15 02/24/18 14:14 01/27/18 02:04 325 MG Allopurinol (Zyloprim Tab) 100 mg QAM PO 01/26/18 09:00 02/25/18 08:59 01/28/18 07:41 100 MG Cholecalciferol (Vitamin D Tab) 1,000 inter.unit QAM PO 01/26/18 09:00 02/25/18 08:59 01/28/18 07:41 1,000 INTER.UNIT Duloxetine HCl (Cymbalta Cap) 30 mg HS PO 01/25/18 21:00 02/24/18 20:59 01/27/18 19:43 30 MG Salmeterol Xinafoate/ Fluticasone (Advair Diskus 500/50 Inh) 1 puff BID INH 01/25/18 21:00 02/24/18 20:59 01/28/18 07:41 1 PUFF Losartan Potassium (coZAAR TAB) 50 mg DAILY PO 01/26/18 09:00 02/25/18 08:59 01/28/18 07:42 50 MG Montelukast Sodium (Singulair Tab) 10 mg HS PO 01/25/18 21:00 02/24/18 20:59 01/27/18 19:44 10 MG Multivitamins/ Minerals (Multivitamin W/ Minerals Tab) 1 tab QAM PO 01/26/18 09:00 02/25/18 08:59 01/28/18 07:42 1 TAB Oxycodone HCl (Roxicodone Immediate Rel Tab) 5 mg Q6H PRN PO 01/25/18 14:15 02/08/18 14:14 01/28/18 09:07 5 MG Rivaroxaban (Xarelto Tab) 15 mg QAM PO 01/26/18 09:00 02/25/18 08:59 01/28/18 07:41 15 MG Ropinirole HCl (Requip Tab) 1 mg HS PO 01/25/18 21:00 02/24/18 20:59 01/27/18 17:48 1 MG Cyanocobalamin (Vitamin B-12 Tab) 1,000 mcg QAM PO 01/26/18 09:00 4/15/18 08:59 01/28/18 07:41 1,000 MCG Miscellaneous Information (Order Awaiting Action) 1 ea QS N/A 01/25/18 16:00 02/24/18 15:59 Pantoprazole Sodium (Protonix Tab) 40 mg QAM PO 01/26/18 09:00 02/25/18 08:59 01/28/18 07:42 40 MG Ranitidine HCl (zANTac TAB) 300 mg HS PO 01/25/18 21:00 02/24/18 20:59 01/27/18 19:43 300 MG Menthol (Nice Lana) 1 lana Q1H PRN LANA 01/25/18 14:15 02/24/18 14:14 Guaifenesin (Mucinex Contr Rel Tab) 1,200 mg Q12 PO 01/25/18 21:00 02/24/18 20:59 01/28/18 07:42 1,200 MG Levofloxacin 750 mg/Prmx 150 ml @ 100 mls/hr Q24H IV 01/25/18 16:00 02/01/18 15:59 01/27/18 15:43 100 MLS/HR Fentanyl (Duragesic Patch) 50 mcg Q3D TD 01/26/18 09:00 02/09/18 08:59 01/26/18 09:14 50 MCG Miscellaneous (Fentanyl Patch Remove & Waste) 1 ea Q3D N/A 01/26/18 08:59 02/25/18 08:58 01/26/18 07:59 1 EA Miscellaneous Information (Check Fentanyl Patch Placement) 1 ea QS N/A 01/25/18 16:00 02/24/18 15:59 01/28/18 07:42 1 EA Levalbuterol (Xopenex 1.25MG/ 0.5ML Neb) 1.25 mg Q6RWA INH 01/26/18 21:00 02/25/18 20:59 01/28/18 07:13 1.25 MG Objective Vital Signs Date Time Temp Pulse Resp B/P (MAP) Pulse Ox O2 Delivery O2 Flow Rate FiO2 01/27/18 08:01 36.5 69 20 120/69 (86) 96 Nasal Cannula 2.0 01/27/18 08:00 Nasal Cannula 2.0 01/27/18 06:52 75 20 96 Nasal Cannula 3.0 01/27/18 04:47 36.3 80 16 96 CPAP 30 01/27/18 04:00 CPAP 35 01/27/18 00:00 CPAP 35 01/26/18 23:51 37.0 89 18 104/52 (69) 92 CPAP 30 01/26/18 22:11 90 93 30 01/26/18 20:06 90 Nasal Cannula 2.0 01/26/18 19:48 79 22 91 Nasal Cannula 2.0 01/26/18 19:25 36.5 81 18 127/75 (92) 92 Nasal Cannula 2.0 01/26/18 16:23 97 93 01/26/18 16:03 93 Nasal Cannula 2.0 01/26/18 15:36 36.5 94 18 114/70 (85) 93 Nasal Cannula 4.0 01/26/18 12:30 Nasal Cannula 4.0 01/26/18 11:30 36.7 77 20 121/56 (77) 94 Nasal Cannula 4.0 Physical Exam Comments: General Appearance: WD/WN, no apparent distress Eyes: sclerae normal ENT: hearing grossly normal Neck: supple, no JVD, trachea midline Respiratory/Chest: no respiratory distress, no accessory muscle use, + rhonchi (R base), + pertinent finding (adequate airflow with respirations - no wheeze) Cardiovascular: regular rate, rhythm, no gallop, no murmur Abdomen: normal bowel sounds, non tender, soft Extremities: + swelling (b/l 1+ pitting edema to lower extremities; skin is dry and flaky; no erythema) Neurologic/Psychiatric: alert Skin: normal color Laboratory Results Last 24 Hours Test 01/27/18 06:10 White Blood Count 7.53 K/uL Red Blood Count 3.35 M/uL Hemoglobin 11.9 g/dL Hematocrit 35.3 % Mean Corpuscular Volume 105.4 fL Mean Corpuscular Hemoglobin 35.5 pg Mean Corpuscular Hemoglobin Concent 33.7 g/dl Platelet Count 166 K/uL Mean Platelet Volume 11.7 fL RDW Standard Deviation 64.0 fL RDW Coefficient of Variation 16.7 % Neutrophils % (Manual) 70.3 % Lymphocytes % (Manual) 18.4 % Monocytes % (Manual) 6.1 % Basophils % (Manual) 2.6 % Myelocytes % 2.6 % Neutrophils # (Manual) 5.29 K/uL Total Absolute Neutrophils 5.29 K/uL Lymphocytes # (Manual) 1.39 K/uL Total Absolute Lymphocytes 1.39 K/uL Monocytes # (Manual) 0.46 K/uL Basophils # (Manual) 0.20 K/uL Myelocytes # 0.20 K/uL Red Blood Cell Morphology Unremarkable Sodium Level 140 mmol/L Potassium Level 3.8 mmol/L Chloride Level 107 mmol/L Carbon Dioxide Level 27 mmol/L Anion Gap 6.0 mmol/L Blood Urea Nitrogen 32 mg/dl Creatinine 1.40 mg/dl Est Creatinine Clear Calc Drug Dose 38.4 ml/min Estimated GFR () 39.3 Estimated GFR (Non- 33.9 BUN/Creatinine Ratio 22.7 Random Glucose 114 mg/dl Calcium Level 9.5 mg/dl Assessment and Plan This is a 87 yo F with PMHx of DCIS status post right mastectomy, history of liver hemangioma, pulmonary nodules, 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 However reviewing her outpatient records, she does have oxygen for ambulation and does drop to 87% - Continue home CPAP - may use own device - Xopenex nebs, Advair 1 puff BID, Singulair 10 mg HS, and Mucinex 1200 Q12H MICHI on CKD Stage III: -Creatinine improved today. will continue to hold IVF. Possible BLE Cellulitis: RESOLVED - No erythema on examination - will continue to monitor - may be element of venous stasis HTN/HLD: - Losartan 50 mg daily H/O PE/ DVT - Xarelto 15 mg daily Morbid Obesity, BMI 42.0 - Diet and exercise should be encouraged - Uses a walker with ambulation at baseline - PT/OT CODE STATUS: DNR Disposition: From [facility] -possible D/C tomorrow or next day -no need for 2 step as patient has oxygen for ambulation Continued [facility] stay due to: multiple IV medications needed Discharge planning: home ([facility])
[2018-01-27] MEDS: OXYCODONE HCL IR 5 MG TAB (IMMEDIATE RELEASE) PO PRN ×2 (12:37→19:41)
[2018-01-27] MEDS: LEVOFLOXACIN / D5W 750 MG in PREMIXED IN D5W 150 ML IV SCH (15:43)
[2018-01-27] MEDS: ROPINIROLE HCL 1 MG TAB PO SCH (17:48)
[2018-01-27] MEDS: RANITIDINE HCL 150 MG TAB PO SCH (19:43)
[2018-01-27] MEDS: DULOXETINE (CYMBALTA) 30 MG CAP PO SCH (19:43)
[2018-01-27] MEDS: MONTELUKAST SOD 10 MG TAB PO SCH (19:44)
[2018-01-27] MEDS ORDERED: LORAZEPAM 0.5 MG TAB PO ONE (23:45)
[2018-01-28] VITALS (7 sets, daily range): BP systolic 129–180; BP diastolic 59–87; PULSE 80–106; TEMP 36.4–36.5; O2SAT 89–100
[2018-01-28] MEDS: CHECK FENTANYL PATCH PLACEMENT SCH ×3 (00:44→16:22)
[2018-01-28] MEDS: OXYCODONE HCL IR 5 MG TAB (IMMEDIATE RELEASE) PO PRN ×4 (02:51→22:14)
[2018-01-28] MEDS: ACETAMINOPHEN 325 MG TAB PO PRN (06:00)
[2018-01-28 07:06] LABS: BASO % 0.8 %; BASO ABS # 0.06 K/uL (0-0.2); EOS % 2.6 %; EOS ABS # 0.21 K/uL (0-0.5); HEMATOCRIT 42.2 % (37-47); LYMPH ABS # 2.14 K/uL (1.2-3.4); MEAN CELL VOLUME 105.2 fL (80-100); MEAN CORPUSCULAR HEMOGLOBIN 34.9 pg (25-34); MEAN CORPUSCULAR HGB CONC 33.2 g/dl (32-36); MEAN PLATELET VOLUME 12.5 fL (7.4-10.4); MONO % 24.6 %; MONO ABS # 1.95 K/uL (0.11-0.59); NEUT % 41.2 %; NEUT ABS # 3.27 K/uL (1.4-6.5); PLATELET COUNT 192 K/uL (130-400); RED CELL DISTRIBUTION WIDTH CV 16.4 % (11.5-14.5); RED CELL DISTRIBUTION WIDTH SD 63.6 fL (36.4-46.3); WHITE BLOOD COUNT 7.93 K/uL (4.8-10.8)
[2018-01-28] MEDS: LEVALBUTEROL 1.25MG/0.5ML NEB INH SCH ×3 (07:13→19:45)
[2018-01-28] MEDS: CHOLECALCIFEROL 1000 INTER.UNIT TAB PO SCH (07:41)
[2018-01-28] MEDS: CYANOCOBALAMIN 500 MCG TAB (VIT B-12) PO SCH (07:41)
[2018-01-28] MEDS: ALLOPURINOL 100 MG TAB PO SCH (07:41)
[2018-01-28] MEDS: FLUTICASONE/SALMETEROL (ADVAIR) 500/50 INH 14 PUFF INH SCH ×2 (07:41→19:57)
[2018-01-28] MEDS: RIVAROXABAN TAB 15 MG TAB PO SCH (07:41)
[2018-01-28] MEDS: POLYETHYLENE (MIRALAX) 17 GM PACK PO SCH (07:42)
[2018-01-28] MEDS: LOSARTAN POTASSIUM 50 MG TAB PO SCH (07:42)
[2018-01-28] MEDS: PANTOprazole SOD 40 MG TAB PO SCH (07:42)
[2018-01-28] MEDS: GUAIFENESIN 600 MG TABCR PO SCH ×2 (07:42→19:57)
[2018-01-28] MEDS: CEROVITE ADV FORMULA TAB PO SCH (07:42)
[2018-01-28] MEDS: RESTASIS~ORDER AWAITING ACTION SCH ×3 (07:43→16:00)
[2018-01-28] MEDS: ONDANSETRON INJ 2 MG/ML 2 ML VIAL IV PRN ×2 (08:42→15:06)
[2018-01-28] MEDS ORDERED: ROPINIROLE HCL 0.25 MG TAB PO ONE (09:30)
--- NOTE | 2018-01-28 13:57 | Pulmonary Consultation ---
History General Date of Service: Jan 28, 2018. Stated Complaint: Pneumonia, sleep apnea and continued shortness of breath HPI The patient is a 87 year old female who presents to [facility] with complaints of Pneumonia. The patient's primary care provider is Tereso Mendez M.D.. Patient is an 87-year-old female admitted 01/25/2018 with progressive shortness of breath and fatigue noted on CXR to have right lower lobe infiltrative pattern and started on treatment for pneumonia. 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 Patient notes she has had progressive dyspnea and fatigue over the previous year and along with this she also notes very poor compliance with her CPAP device not using it most days but requiring medications to help her fall asleep in a chair each evening. She also notes poor compliance with her scheduled oxygen supplementation of 2 liters both with ambulation and at night. During our interview the patient denied: Aspiration, Productive sputum, fever, chills, pleurisy or classic cardiac chest pain but did note some dyspnea even at rest. Current workup WBC: [id number] Cr: 1.40 Influenza PCR a and B: Negative Blood culture x2: No growth to date CXR 01/25/2018: Increased hilar fullness, cephalization, peribronchial cuffing , right lower lobe infiltrative pattern and notably small lung volumes SaO2 89-91 % on room air---------clinic SaO2 the same Previous workup Pulmonary function studies 05/30/2013 Spirometry: Within normal limits Lung volumes: Within normal limits Diffusion: Moderately reduced at 49% Dobutamine stress echocardiogram 12/23/2015 Negative dobutamine stress echocardiogram Negative dobutamine stress ECG A 6 minute-walk study 08/25/2017 3 minutes in desaturate to 87 %--started on 2 liters nasal cannula Echocardiogram 08/04/2016 LV: EF=55-60%, class 1 diastolic dysfunction Left atrium: Mildly dilated Microbiology history Bronchial washing 10/28/2002: Rachel albicans Right breast ulcer 07/12/2013: Escherichia coli, Enterococcus faecalis, Proteus mirabilis Right breast ulcer 08/09/2013: Corynebacterium, Enterococcus faecalis Urine 03/03/2015: Citrobacter Koseri Urine 09/10/2015: Escherichia coli Blood 08/04/2016: Group B beta strep Urine 08/04/2016: Group B beta strep Urine 10/15/2016: Proteus mirabilis Urine 01/22/2018: Escherichia coli/ESBL Inpatient pulmonary medications 1. Xopenex nebulizer 2. Xarelto 15 mg 3. Protonix 40 mg 5. Advair 500/51 puff b.i.d. 6. Guaifenesin 1200 mg Q 12 7. Levofloxacin 750 mg daily 4 PmHx: 1.Abnormal positron emission tomography (PET) scan 2.Urosepsis with group B beta strep 3.Adult BMI 47kg/sq m2 4.Anxiety 5.Asthma 6.Bronchioalveolar carcinoma 7.Carpal tunnel syndrome 8.Cholelithiasis 9.Chronic anticoagulation (Xarelto) 10.Chronic osteoarthritis 11.Chronic pain (10 no patch and oxycodone) 12.Chronic stasis dermatitis, right 13.Daytime somnolence 14.Dysphagia 15.Dysphonia 16.Edema 17.Fatigue 18.Gastroesophageal reflux disease 19.Hearing loss due to cerumen impaction, right 20.Heme positive stool 21.Hernia, abdominal 22.History of breast cancer 23.Hypertrophy of both inferior nasal turbinates 24.Insomnia 25.Lumbar radiculopathy 26.Lymphedema 27.Megaloblastic erythrocytes 28.Memory loss or impairment 29.Nasal septal deviation 30.Post-menopausal atrophic vaginitis 31.Pulmonary embolism (I26.99) 32.Pulmonary nodules (R91.8) 33.Purpura (D69.2) 34.Restless legs syndrome (G25.81) 35.Rhinitis (J31.0) 36.Shortness of breath (R06.02) 37.Subclinical hypothyroidism (E03.9) 38.Urge incontinence of urine (N39.41) 39.Urinary frequency (R35.0) 40.Urinary incontinence (R32) 41.Vocal cord paralysis 42.Obstructive sleep apnea ( BiPAP: 01/06) 43.Hypertension 44.Gout 45.Chronic kidney disease Surgical History 1. Appendectomy 2. Arthroscopy Knee 3. Back Surgery 4. Breast Surgery Mastectomy 5. Cataract Surgery 6. Hand Surgery 7. Hernia Repair 8. Hysterectomy 9. Partial Hepatectomy 10. Total Knee Arthroplasty 11. Wedge Resection Of Lung Family History 1. Diabetes Mellitus 2. Heart Disease Social History Drinking In Moderation (2 Drinks / Day or Fewer) Marital History - Single Never a smoker Current outpatient Meds 1. Advair Diskus 500-50 MCG/DOSE Inhalation Aerosol INHALE 1 2. Oxygen; 2-3 LPM with activity as needed; 3. OxyCODONE HCl - 5 MG Oral Tablet; TAKE 1 TABLET EVERY 6 HOURS NEEDED 4. FentaNYL 50 MCG/HR Transdermal Patch 72 Hour; APPLY 1 PATCH EVERY 3 DAYS 5. Polyethylene Glycol 3350 Oral Packet; MIX 1 PACKET IN 8 OUNCES OF LIQUID AND 6. Spironolactone 25 MG Oral Tablet; TAKE 1 TABLET EVERY DAY; 7. Omeprazole 20 MG Oral Capsule Delayed Release; take 1 capsule by mouth once daily 8. RaNITidine HCl - 300 MG Oral Tablet; TAKE 1 TABLET BY MOUTH AT BEDTIME 9. Allopurinol 100 MG Oral Tablet; Take one (1) tablet(s) daily; 10. PredniSONE 20 MG Oral Tablet; TAKE 1 TABLET DAILY 11. DULoxetine HCl - 30 MG Oral Capsule Delayed Release Particles; TAKE 1 CAPSULE AT 12. Oyster Shell Calcium/D3 500-400 MG-UNIT Oral Tablet; Take 1 tablet twice daily; 13. Losartan Potassium 100 MG Oral Tablet; TAKE (1) TABLET DAILY; 14. Acetaminophen 325 MG Oral Tablet; TAKE 1 TO 2 TABLETS EVERY 6 HOURS 15. Ondansetron HCl - 4 MG Oral Tablet; take 1 tablet by mouth every 6 hours if needed; 16. Xarelto 15 MG Oral Tablet; 1 tablet once a day with largest meal 17. ROPINIRole HCl - 1 MG Oral Tablet; TAKE 1 TABLET AT BEDTIME. may take half a tab 18. Montelukast Sodium 10 MG Oral Tablet; TAKE ONE TABLET ONCE DAILY IN THE 19. Ciprofloxacin HCl - 500 MG Oral Tablet; Take 1 tablet twice daily; 20. Azelastine HCl - 0.1 % Nasal Solution; instill 2 sprays into each nostril two to three 21. Fluticasone Propionate 50 MCG/ACT Nasal Suspension; NOSTRIL QD 22. Multivital TABS; TAKE 1 TABLET DAILY; 23. Restasis 0.05 % Ophthalmic Emulsion; INSTILL 1 DROP IN EACH EYE TWICE DAILY; 24. Vitamin B12 TABS; TAKE 1 TABLET DAILY DIRECTED; 25. Vitamin C TABS; TAKE 1 TABLET DAILY 26. Vitamin D 1000 UNIT CAPS; TAKE DIRECTED Historian: patient, EMS Review of Systems Constitutional: reports: weakness Eyes: reports: no symptoms ENT: reports: no symptoms Cardiovascular: reports: as stated in HPI Respiratory: reports: as stated in HPI Gastrointestinal: reports: no symptoms Genitourinary - Female: reports: no symptoms Musculoskeletal: reports: muscle spasms Integumentary: reports: no symptoms Neurologic: reports: no symptoms Psychiatric: reports: no symptoms Endocrine: no symptoms Hematologic / Lymphatic: no symptoms Allergic / Immunologic: no symptoms Past Medical History Past Medical History: Please refer to HPI Past Medical History: arthritis, asthma, cancer - lung, GERD, hypertension, other Past Surgical History: Please refer to HPI Past Surgical History: appendectomy, hysterectomy, orthopedic surgery, other Family History Cancer Diabetes mellitus FH: heart disease FHx: gallbladder disease FHx: lung disease Hypertension Please refer to HPI Parent: Cancer, Diabetes, Heart Disease Social History Please refer to HPI Hx Tobacco Use In Past Year?: No Smoking Status: Never Smoker Alcohol: never Drug Use: none Marital status: single Housing status: lives alone Occupational Status: retired Immunizations History of Influenza Vaccine: Yes Influenza Vaccine Date: Aug 20, 2010 History of Tetanus Vaccine?: UNSURE History of Pneumococcal: Yes Pneumococcal Date: Aug 13, 2008 History of Hepatitis B Vaccine: Unknown History of MDRO History of MDRO: No Allergies Coded Allergies: Enoxaparin (Verified Allergy, Intermediate, RASH, PRURITUS, 08/04/16) Current Medications Reported Home Medications Medications Dose Route/Sig Max Daily Dose Days Date Category Dose Instructions Cozaar (Losartan Potassium) 50 Mg Tab 50 Mg PO DAILY 01/25/18 Reported Macrobid (Nitrofurantoin Macrocrystals) 100 Mg Cap 100 Mg PO BID 01/25/18 Reported TAKE TWICE DAILY UNTIL GONE Ondansetron HCl (Ondansetron) 4 Mg Tab 1 Tab PO Q6H PRN 01/25/18 Reported Ropinirole HCl 1 Mg Tab 1 Tab PO HS 01/25/18 Reported Tylenol (Acetaminophen) 325 Mg Tab 325 Mg PO Q6 PRN 01/25/18 Reported Roxicodone Ir (Oxycodone HCl) 5 Mg Tab 5 Mg PO Q6H PRN 11/02/17 Reported Prilosec (Omeprazole) 20 Mg Capcr 20 Mg PO DAILY 11/02/17 Reported Cymbalta (Duloxetine HCl) 30 Mg Cap 1 Cap PO HS 30 11/02/17 Reported Advair Diskus 500/50 60 Dose (Fluticasone Prop/Salmeterol) 1 Ea Aerp 1 Puffs INH BID 11/02/17 Reported Duragesic (Fentanyl) 50 Mcg Tdsy 50 Mcg TD [id number] 11/02/17 Reported Restasis Oph 0.05% (Cyclosporine) Emul 1 Drop OPB BID 07/25/16 Reported Zantac (Ranitidine HCl) 300 Mg Tab 300 Mg PO HS 02/18/16 Reported Oxygen Gas 2 Liters INTNAS HS 02/18/16 Reported WITH CPAP Astelin Nasal Orlinda (Azelastine Hcl) 200 Sprays/30 Ml Orlinda 2 Sprays NA BID 09/21/15 Reported Centrum (Multiple Vitamins W/ Minerals) 1 Tab Tab 1 Tab PO QAM 09/16/15 Reported Singulair (Montelukast Sodium) 10 Mg Tab 10 Mg PO HS 09/10/15 Reported Vitamin D (Cholecalciferol) 1,000 Inter.unit Tab 1,000 Inter.unit PO QAM 08/22/15 Reported Zyloprim (Allopurinol) 100 Mg Tab 100 Mg PO QAM 08/22/15 Reported Xarelto (Rivaroxaban) 15 Mg Tab 15 Mg PO QAM 05/06/14 Reported Miralax Powder Packet (Polyethylene) 17 Gm Pack 17 Gm PO QAM 06/05/13 Reported Vitamin B12 (Cyanocobalamin) 1,000 Mcg Tab 1,000 Mcg PO QAM 04/29/13 Reported Physical Physical Exam Vital Signs: Date Time Temp Pulse Resp B/P (MAP) Pulse Ox O2 Delivery O2 Flow Rate FiO2 01/28/18 11:23 36.4 80 24 132/68 (89) 89 Room Air 01/28/18 08:15 Room Air 01/28/18 07:17 36.5 84 24 146/77 (100) 91 Room Air 01/28/18 07:13 82 22 91 Room Air 01/28/18 04:00 CPAP 01/28/18 00:00 CPAP 01/27/18 23:41 37.0 86 20 132/53 (79) 62 BiPAP 01/27/18 20:37 86 92 2.0 01/27/18 20:00 Nasal Cannula 2.0 01/27/18 19:28 102 22 90 Room Air 01/27/18 18:57 36.8 106 20 153/86 (108) 91 Room Air 01/27/18 16:00 Room Air 01/27/18 15:08 36.5 83 20 101/62 (75) 91 01/27/18 14:41 74 20 91 Room Air General Appearance: other (Morbidly obese female in mild respiratory insufficiency) Head: NORMOCEPHALIC, ATRAUMATIC Eyes: PERRLA, NO DISCHARGE, EOMI, SCLERAE NORMAL, CONJUNCTIVAE NORMAL ENT: NORMAL EAR EXAM, NORMAL NASAL EXAM, NORMAL MOUTH EXAM, NORMAL THROAT EXAM , NORMAL DENTAL EXAM Neck: NORMAL RANGE OF MOTION, NO TENDERNESS, TRACHEA MIDLINE, NO STRIDOR, other Respiratory: other (Decreased breath sounds with some crackles/rhonchi appreciated at the right base) Cardiovasular: REGULAR RATE/RHYTHM, NORMAL S1S2, NO M/G/R Abdomen: other (Obese but soft and nontender positive bowel sounds no rebound) Genitourinary - Female: EXTERNAL GENITALIA NORMAL Back: other (Notable kyphosis of the back but no tenderness noted on palpation) Upper Extremities: NO EDEMA, NO DEFORMITY, NORMAL ROM Edema: Bilateral LE (2+) Pulses: carotid (R) (1+), carotid (L) (1+), dorsalis pedis (R) (2+), dorsalis pedis (L) (1+) Neuro: ALERT, ORIENTED x 3, NORMAL MOTOR EXAM, NORMAL SENSATION, NORMAL CEREBELLAR EXAM Reflexes: biceps (R) (2+), bicpes (L) (2+), achilles (R) (2+), achilles (L) (2+ ) Babinski Testing: right (downgoing), left (downgoing) Psychiatric: NORMAL AFFECT, NO SUICIDAL IDEATION, CONTRACTS FOR SAFETY Diagnostics Labs Results Past 24 Hours Test 01/28/18 06:37 Range/Units White Blood Count 7.93 4.8-10.8 K/uL Red Blood Count 4.01 4.2-5.4 M/uL Hemoglobin 14.0 12.0-16.0 g/dL Hematocrit 42.2 37-47 % Mean Corpuscular Volume 105.2 80-100 fL Mean Corpuscular Hemoglobin 34.9 25-34 pg Mean Corpuscular Hemoglobin Concent 33.2 32-36 g/dl Platelet Count 192 130-400 K/uL Mean Platelet Volume 12.5 7.4-10.4 fL Neutrophils (%) (Auto) 41.2 % Lymphocytes (%) (Auto) 27.0 % Monocytes (%) (Auto) 24.6 % Eosinophils (%) (Auto) 2.6 % Basophils (%) (Auto) 0.8 % Neutrophils # (Auto) 3.27 1.4-6.5 K/uL Lymphocytes # (Auto) 2.14 1.2-3.4 K/uL Monocytes # (Auto) 1.95 0.11-0.59 K/uL Eosinophils # (Auto) 0.21 0-0.5 K/uL Basophils # (Auto) 0.06 0-0.2 K/uL RDW Standard Deviation 63.6 36.4-46.3 fL RDW Coefficient of Variation 16.4 11.5-14.5 % Immature Granulocyte % (Auto) 3.8 % Immature Granulocyte # (Auto) 0.30 0.00-0.02 K/uL Diagnostic Radiology Please refer to HPI EKG Sinus rhythm with occasional PVCs, left axis deviation rate 88 Impression Assessment and Plan 87-year-old female admitted with possible right lower lobe pneumonia acute on chronic respiratory insufficiency: 1. Respiratory Insufficiency: Patient's respiratory insufficiency most likely multifactorial with poorly controlled CARLITOS possibly even obesity hypoventilation syndrome, kyphosis and possible cardiac diastolic dysfunctioning. At this time I would like to repeat the patient's echocardiogram is last 1 was performed as well as obtain bedside spirometry and an ABG. 2. Sleep Apnea: Per the hospital records the patient has been treated with BiPAP since her arrival at 01/06 with a cuff leak of only 29%. The outside sleep team has suggested the patient be treated with auto titratable device and followed for 30 90 day window but also continuous supplemental oxygen at 2 liters. At this time I will continue patient on her current BiPAP settings in the hospital and the patient will be seen by Dr. Yasir gibson the sleep team for further evaluation tomorrow. 3. Pulmonary nodules: Patient has a history of adenocarcinoma in situ/RICK. Patient underwent previous resection in the past and currently being followed via CT imaging and PET scans. Overall her nodules are stable but still concerning of an AIS recurrence. At this time the patient is not stable enough to undergo bronchoscopic evaluation of these nodules. When the patient is stable we can reconsider performing EBUS/ENB evaluation. 4. Pneumonia: Patient has increasing infiltrate in the right lower lobe suggesting possible aspiration as well as her severe sleep apnea and use of medications to sedate herself it is possible the patient did experience an aspiration event. As the patient is stabilizing and her WBC count is resolving I suggest we continue the Levaquin at this time. But if the patient notes a clinical decline would initiate with antibiotic coverage for broad-spectrum and anaerobes. 5. Oxygen: The patient should be on oxygen with ambulation at 2 liters as well as supplemental oxygen while sleeping/CPAP/BiPAP 2 liters.
[2018-01-28] MEDS ORDERED: PERFLUTREN LIPID MICROSPHERE (DEFINITY) IV ONE (16:06)
[2018-01-28] MEDS: LEVOFLOXACIN / D5W 750 MG in PREMIXED IN D5W 150 ML IV SCH (16:22)
--- NOTE | 2018-01-28 17:25 | ECHOCARDIOGRAM REPORT ---
*NOTICE TO RECEIVING [employer] This information is strictly Confidential and protected under [place] law. [place] law prohibits you from making any further disclosure of this information unless further disclosure is expressly permitted by the written consent of the person to whom it pertains or is authorized by law. A general authorization for the release of medical or other information is not sufficient for this purpose. Hospital accepts no responsibility if the information is made available to any other person, INCLUDING THE PATIENT. Interpretation Summary * Name: EJ ADAM Study Date: 01/28/2018 03:26 PM BP: 132/68 mmHg * Patient Location: [facility]\S\N276\S\1 HR: 94 * : 1930 (M/d/yyyy) Gender: Female Height: 66 in * Age: 87 yrs Ethnicity: [place] Weight: 268 lb * Ordering Physician: Flaquito Cool * Referring Physician: Self, Referred * Performed By: Yasir Lyons RDCS * * Reason For Study: Dyspnea on exertion * BSA: 2.3 m2 * -- Conclusions -- * 1. Left ventricle appears grossly normal in size and systolic function. Estimated EF 60-65%. There were no visualized wall motion abnormalities, but cannot exclude wall motion abnormalities given poor image quality. Mild concentric left ventricular hypertrophy. Type 1 diastolic dysfunction. * 2. The left atrium is moderately dilated. * 3. No significant valvular stenosis suggested. Valves were not well seen. * 4. Technically difficult study, enhanced somewhat with IV Definity. * 5. Compared to prior study on 08/08/2016, no significant difference visualized. Procedure Details * A complete two-dimensional transthoracic echocardiogram was performed (2D, M-mode, Doppler and color flow Doppler). * The study was technically limited. * Definity was used for LV opacification. Left Ventricle * Left ventricle appears grossly normal in size and systolic function. Estimated EF 60-65%. There were no visualized wall motion abnormalities, but cannot exclude wall motion abnormalities given poor image quality. Mild concentric left ventricular hypertrophy. Type 1 diastolic dysfunction. Right Ventricle * Borderline right ventricular enlargement. * The right ventricular systolic function is normal as assessed by tricuspid annular plane systolic excursion (TAPSE) (normal >1.5 cm). Atria * The left atrium is not well visualized. * The left atrium is moderately dilated. * Right atrium not well visualized. * Right atrial size is normal. Mitral Valve * The mitral valve is not well visualized. * There is mild to moderate mitral annular calcification. * There is no mitral valve stenosis. * Significant mitral regurgitation is absent. Tricuspid Valve * The tricuspid valve is not well visualized. * There is no tricuspid stenosis. * Significant tricuspid regurgitation is absent. Aortic Valve * The aortic valve is not well visualized. * No hemodynamically significant valvular aortic stenosis. * There is no significant aortic regurgitation. Pulmonic Valve * The pulmonic valve is not well visualized. Great Vessels * The aortic root is normal size. Pericardium/Pleural * There is no pericardial effusion. Great Vessels * IVC not well visualized. MMode 2D Measurements and Calculations IVSd 1.2 cm LVIDd 4.9 cm LVPWd 1.3 cm IVS/LVPW 0.98 EDV(Teich) 114.5 ml EDV(cubed) 119.9 ml LV mass(C)d 240.5 grams LV mass(C)dI 106.2 grams/m\S\2 Ao root diam 3.1 cm Ao root area 7.8 cm\S\2 ACS 1.8 cm LA dimension 4.2 cm LA/Ao 1.3 Doppler Measurements and Calculations MV E max sofia 75.6 cm/sec MV A max sofia 110.7 cm/sec MV E/A 0.68 MV dec time 0.36 sec Ao V2 max 177.5 cm/sec Ao max PG 12.6 mmHg Ao max PG (full) 7.0 mmHg Ao V2 mean 115.9 cm/sec Ao mean PG 6.3 mmHg Ao mean PG (full) 3.6 mmHg Ao V2 VTI 37.6 cm LV V1 max PG 5.6 mmHg LV V1 mean PG 2.7 mmHg LV V1 max 118.2 cm/sec LV V1 mean 73.8 cm/sec LV V1 VTI 26.7 cm SV(Ao) 292.3 ml SI(Ao) 129.1 ml/m\S\2
[2018-01-28] MEDS: DULOXETINE (CYMBALTA) 30 MG CAP PO SCH (19:57)
[2018-01-28] MEDS: ROPINIROLE HCL 1 MG TAB PO SCH (19:58)
[2018-01-28] MEDS: RANITIDINE HCL 150 MG TAB PO SCH (19:58)
[2018-01-28] MEDS: MONTELUKAST SOD 10 MG TAB PO SCH (19:58)
--- NOTE | 2018-01-28 23:43 | Progress Note ---
Subjective Date of Service: Jan 28, 2018. Subjective Pt evaluation today including: conversation w/ patient Patient reports she is back to her baseline. Patient denies any worsening of her sob or worsening cough. Howeveer reviweing her records she should be on CPAP and oxygen on ambulation. Patient states this is not the case and she does not use CPAP and O2. She does state that she has O2 at home for ambulation. Problem List Medical Problems: (1) Acute renal failure Status: Acute (2) Cellulitis Status: Acute (3) Cellulitis of right leg Status: Acute (4) Cellulitis of right leg Status: Acute (5) Cellulitis of right lower leg Status: Acute (6) Falling Status: Acute (7) Hematuria Status: Acute (8) Hypoxia Status: Acute (9) Low back pain Status: Acute (10) Pneumonia Status: Acute (11) Pyuria Status: Acute (12) Right arm weakness Status: Acute (13) Stomach problems Status: Chronic Objective Vital Signs Date Time Temp Pulse Resp B/P (MAP) Pulse Ox O2 Delivery O2 Flow Rate FiO2 01/28/18 20:00 Nasal Cannula 2.0 01/28/18 19:45 106 22 94 Nasal Cannula 2.0 01/28/18 19:02 36.5 93 22 129/59 (82) 100 Nasal Cannula 2.0 01/28/18 16:15 Room Air 01/28/18 14:43 82 22 89 Room Air 01/28/18 14:33 36.5 91 24 180/87 (118) 90 Room Air 01/28/18 12:15 Room Air 01/28/18 11:23 36.4 80 24 132/68 (89) 89 Room Air 01/28/18 08:15 Room Air 01/28/18 07:17 36.5 84 24 146/77 (100) 91 Room Air 01/28/18 07:13 82 22 91 Room Air 01/28/18 04:00 CPAP 01/28/18 00:00 CPAP Physical Exam Comments: General Appearance: WD/WN, no apparent distress Eyes: sclerae normal ENT: hearing grossly normal Neck: supple, no JVD, trachea midline Respiratory/Chest: no respiratory distress, no accessory muscle use, + rhonchi (R base), + pertinent finding (adequate airflow with respirations - no wheeze) Cardiovascular: regular rate, rhythm, no gallop, no murmur Abdomen: normal bowel sounds, non tender, soft Extremities: + swelling (b/l 1+ pitting edema to lower extremities; skin is dry and flaky; no erythema) Neurologic/Psychiatric: alert Skin: normal color Laboratory Results Last 24 Hours Test 01/28/18 06:37 01/28/18 14:54 White Blood Count 7.93 K/uL Red Blood Count 4.01 M/uL Hemoglobin 14.0 g/dL Hematocrit 42.2 % Mean Corpuscular Volume 105.2 fL Mean Corpuscular Hemoglobin 34.9 pg Mean Corpuscular Hemoglobin Concent 33.2 g/dl Platelet Count 192 K/uL Mean Platelet Volume 12.5 fL Neutrophils (%) (Auto) 41.2 % Lymphocytes (%) (Auto) 27.0 % Monocytes (%) (Auto) 24.6 % Eosinophils (%) (Auto) 2.6 % Basophils (%) (Auto) 0.8 % Neutrophils # (Auto) 3.27 K/uL Lymphocytes # (Auto) 2.14 K/uL Monocytes # (Auto) 1.95 K/uL Eosinophils # (Auto) 0.21 K/uL Basophils # (Auto) 0.06 K/uL RDW Standard Deviation 63.6 fL RDW Coefficient of Variation 16.4 % Immature Granulocyte % (Auto) 3.8 % Immature Granulocyte # (Auto) 0.30 K/uL Arterial Blood pH 7.46 Arterial Blood Partial Pressure CO2 34 mmHg Arterial Blood Partial Pressure O2 74 mm/Hg Arterial Blood HCO3 24 mmol/L Arterial Blood Oxygen Saturation 94.3 % Arterial Blood Base Excess 0.7 mEq/L Arterial Blood Gas Delivery RA Thai Test POS Assessment and Plan This is a 87 yo F with PMHx of DCIS status post right mastectomy, history of liver hemangioma, pulmonary nodules, 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 -PFT, Echo Likely multifactorial: infection, obesity, cancer, underlying lung disease will likely be readmitted. - Levofloxacin 750 mg IV daily However reviewing her outpatient records, she does have oxygen for ambulation and does drop to 87% - Continue home CPAP - may use own device - Xopenex nebs, Advair 1 puff BID, Singulair 10 mg HS, and Mucinex 1200 Q12H MICHI on CKD Stage III: -Creatinine improved today. will continue to hold IVF. Possible BLE Cellulitis: RESOLVED - No erythema on examination - will continue to monitor - may be element of venous stasis HTN/HLD: - Losartan 50 mg daily H/O PE/ DVT - Xarelto 15 mg daily Morbid Obesity, BMI 42.0 - Diet and exercise should be encouraged - Uses a walker with ambulation at baseline - PT/OT CODE STATUS: DNR Disposition: From [facility] -possible D/C tomorrow or next day -no need for 2 step as patient has oxygen for ambulation Continued [facility] stay due to: multiple IV medications needed Discharge planning: home ([facility])
[2018-01-29] VITALS (7 sets, daily range): BP systolic 121–149; BP diastolic 59–87; PULSE 67–88; TEMP 36.5–36.7; O2SAT 91–96
[2018-01-29] MEDS: CHECK FENTANYL PATCH PLACEMENT SCH ×3 (00:23→16:15)
[2018-01-29] MEDS: ACETAMINOPHEN 325 MG TAB PO PRN (02:59)
[2018-01-29] MEDS ORDERED: ROPINIROLE HCL 0.25 MG TAB PO ONE (06:00)
[2018-01-29] MEDS: LEVALBUTEROL 1.25MG/0.5ML NEB INH SCH ×2 (07:13→14:05)
[2018-01-29] MEDS: RESTASIS~ORDER AWAITING ACTION SCH ×3 (07:23→15:39)
[2018-01-29] MEDS: ONDANSETRON INJ 2 MG/ML 2 ML VIAL IV PRN (07:30)
[2018-01-29] MEDS: FENTANYL PATCH REMOVE & WASTE SCH (07:33)
[2018-01-29] MEDS: FENTANYL 50 MCG/HR TDSY TD SCH (07:34)
[2018-01-29] MEDS: GUAIFENESIN 600 MG TABCR PO SCH (07:38)
[2018-01-29] MEDS: PANTOprazole SOD 40 MG TAB PO SCH (07:38)
[2018-01-29] MEDS: CEROVITE ADV FORMULA TAB PO SCH (07:38)
[2018-01-29] MEDS: FLUTICASONE/SALMETEROL (ADVAIR) 500/50 INH 14 PUFF INH SCH (07:38)
[2018-01-29] MEDS: CHOLECALCIFEROL 1000 INTER.UNIT TAB PO SCH (07:39)
[2018-01-29] MEDS: CYANOCOBALAMIN 500 MCG TAB (VIT B-12) PO SCH (07:39)
[2018-01-29] MEDS: LOSARTAN POTASSIUM 50 MG TAB PO SCH (07:39)
[2018-01-29] MEDS: POLYETHYLENE (MIRALAX) 17 GM PACK PO SCH (07:39)
[2018-01-29] MEDS: ALLOPURINOL 100 MG TAB PO SCH (07:40)
[2018-01-29] MEDS: RIVAROXABAN TAB 15 MG TAB PO SCH (07:40)
[2018-01-29 11:15] LABS: HEMATOCRIT 39.6 % (37-47); HEMOGLOBIN 13.3 g/dL (12.0-16.0); MEAN CORPUSCULAR HEMOGLOBIN 35.3 pg (25-34); MEAN CORPUSCULAR HGB CONC 33.6 g/dl (32-36); MEAN PLATELET VOLUME 12.2 fL (7.4-10.4); PLATELET COUNT 199 K/uL (130-400); RED CELL DISTRIBUTION WIDTH CV 16.4 % (11.5-14.5); WHITE BLOOD COUNT 6.33 K/uL (4.8-10.8)
[2018-01-29 11:46] LABS: CALCIUM 10.6 mg/dl (8.5-10.1); CREATININE 1.13 mg/dl (0.60-1.20); POTASSIUM 4.2 mmol/L (3.5-5.1)
[2018-01-29] MEDS: OXYCODONE HCL IR 5 MG TAB (IMMEDIATE RELEASE) PO PRN (13:00)
[2018-01-29] MEDS ORDERED: LEVO1TAB35 PO (13:34)
--- NOTE | 2018-01-29 13:44 | Discharge Instructions ---
Discharge Instructions Date of Service Jan 29, 2018. Admission Reason for Admission: Pneumonia Discharge Discharge Diagnosis / Problem: Pneumonia Discharge Goals Goal(s): Decrease discomfort, Improve function, Diagnostic testing, Therapeutic intervention Activity Recommendations Activity Limitations: resume your previous activity (as tolerated) . Instructions / Follow-Up Instructions / Follow-Up You were admitted to the hospital with pneumonia and acute kidney injury. You were treated with antibiotics. You will continue your antibiotic course as an outpatient. Due to your underlying pulmonary disease, it is recommended that you continue to follow up with pulmonology. Medications: *Please take levofloxacin (Levaquin) 750 mg daily for the next 2 days to complete your antibiotic course. *Please continue taking omeprazole and ranitidine for your acid reflux. *Please continue to use your oxygen at nighttime as prescribed, as well as with ambulation. *Continue your other home medications as prescribed. Follow up: *You will be scheduled to follow up with your primary care provider and with the clutch operator. *You will need pulmonary function tests as an outpatient, which you can have done when you follow up. Please seek medical attention if you experience fevers, chills, sweats, dizziness/lightheadedness, loss of consciousness, chest pain, shortness of breath, nausea, vomiting, numbness or tingling. Current Hospital Diet Patient's current hospital diet: Regular Diet Discharge Diet Recommended Diet: AHA Diet (Heart Healthy) Pending Studies Studies pending at discharge: no Medical Emergencies . Who to Call and When: Medical Emergencies: If at any time you feel your situation is an emergency, please call 911 immediately. . Non-Emergent Contact Non-Emergency issues call your: Primary Care Provider, Practical Nursing Faculty Call Non-Emergent contact if: you have a fever, you have any medication questions . Past History Medical & Surgical History: (1) Pneumonia . "Provider Documentation" section prepared by Pham Garibay. .
--- NOTE | 2018-01-29 14:02 | Discharge Summary ---
Discharge Summary Date of Service Jan 29, 2018. Discharge Summary Admission Date: Jan 25, 2018 at 14:12 Discharge Date: Jan 29, 2018 Discharge Disposition: Home with services ([facility] w/ services) Principal Diagnosis: Pneumonia Problems/Secondary Diagnoses: (1) Stomach problems Status: Chronic Immunizations: Have You Had Influenza Vaccine: Yes Influenza Vaccine Date: Aug 20, 2010 History of Tetanus Vaccine?: UNSURE History of Pneumococcal: Yes Pneumococcal Date: Aug 13, 2008 History of Hepatitis B Vaccine: Unknown Procedures: Echocardiogram: Interpretation Summary * Name: EJ ADAM Study Date: 01/28/2018 03:26 PM BP: 132/68 mmHg * Patient Location: [facility]\S\N276\S\1 HR: 94 * : 1930 (M/d/yyyy) Gender: Female Height: 66 in * Age: 87 yrs Ethnicity: [place] Weight: 268 lb * Ordering Physician: Flaquito Cool * Referring Physician: Self, Referred * Performed By: Yasir Lyons DAYNA * * Reason For Study: Dyspnea on exertion * BSA: 2.3 m2 * -- Conclusions -- * 1. Left ventricle appears grossly normal in size and systolic function. Estimated EF 60-65%. There were no visualized wall motion abnormalities, but cannot exclude wall motion abnormalities given poor image quality. Mild concentric left ventricular hypertrophy. Type 1 diastolic dysfunction. * 2. The left atrium is moderately dilated. * 3. No significant valvular stenosis suggested. Valves were not well seen. * 4. Technically difficult study, enhanced somewhat with IV Definity. * 5. Compared to prior study on 08/08/2016, no significant difference visualized. Procedure Details * A complete two-dimensional transthoracic echocardiogram was performed (2D, M-mode, Doppler and color flow Doppler). * The study was technically limited. * Definity was used for LV opacification. Left Ventricle * Left ventricle appears grossly normal in size and systolic function. Estimated EF 60-65%. There were no visualized wall motion abnormalities, but cannot exclude wall motion abnormalities given poor image quality. Mild concentric left ventricular hypertrophy. Type 1 diastolic dysfunction. Right Ventricle * Borderline right ventricular enlargement. * The right ventricular systolic function is normal as assessed by tricuspid annular plane systolic excursion (TAPSE) (normal >1.5 cm). Atria * The left atrium is not well visualized. * The left atrium is moderately dilated. * Right atrium not well visualized. * Right atrial size is normal. Mitral Valve * The mitral valve is not well visualized. * There is mild to moderate mitral annular calcification. * There is no mitral valve stenosis. * Significant mitral regurgitation is absent. Tricuspid Valve * The tricuspid valve is not well visualized. * There is no tricuspid stenosis. * Significant tricuspid regurgitation is absent. Aortic Valve * The aortic valve is not well visualized. * No hemodynamically significant valvular aortic stenosis. * There is no significant aortic regurgitation. Pulmonic Valve * The pulmonic valve is not well visualized. Great Vessels * The aortic root is normal size. Pericardium/Pleural * There is no pericardial effusion. Great Vessels * IVC not well visualized. Consultations: Pulmonology Medication Reconciliation New Medications: Levofloxacin (Levaquin) 750 Mg Tab 750 MG PO DAILY for 2 Days, #2 TAB Continued Medications: Acetaminophen (Tylenol) 325 Mg Tab 325 MG PO Q6 PRN for Pain Allopurinol (Zyloprim) 100 Mg Tab 100 MG PO QAM Azelastine Hcl (Astelin Nasal [place]) 200 Sprays/30 Ml [place] 2 SPRAYS NA BID Cholecalciferol (Vitamin D) 1,000 Inter.unit Tab 1000 INTER.UNIT PO QAM Cyanocobalamin (Vitamin B12) 1,000 Mcg Tab 1000 MCG PO QAM Cyclosporine Oph 0.05% (Restasis Oph 0.05%) Emul 1 DROP OPB BID Duloxetine HCl (Cymbalta) 30 Mg Cap 1 CAP PO HS for 30 Days Fentanyl (Duragesic) 50 Mcg Tdsy 50 MCG TD [id number] Fluticasone Prop/Salmeterol (Advair Diskus 500/50 60 Dose) 1 Ea Aerp 1 PUFFS INH BID Home O2 Therapy (Oxygen) Gas 2 LITERS INTNAS HS WITH CPAP Losartan Potassium (Cozaar) 50 Mg Tab 50 MG PO DAILY Montelukast Sodium (Singulair) 10 Mg Tab 10 MG PO HS Multiple Vitamins W/ Minerals (Centrum) 1 Tab Tab 1 TAB PO QAM Omeprazole (Prilosec) 20 Mg Capcr 20 MG PO DAILY Ondansetron (Ondansetron HCl) 4 Mg Tab 1 TAB PO Q6H PRN for Nausea Oxycodone Ir (Roxicodone Ir) 5 Mg Tab 5 MG PO Q6H PRN for Pain Polyethylene (Miralax Powder Packet) 17 Gm Pack 17 GM PO QAM Ranitidine (Zantac) 300 Mg Tab 300 MG PO HS Rivaroxaban (Xarelto) 15 Mg Tab 15 MG PO QAM Ropinirole HCl (Ropinirole HCl) 1 Mg Tab 1 TAB PO HS Discontinued Medications: Nitrofurantoin Monohyd Macrocr (Macrobid) 100 Mg Cap 100 MG PO BID TAKE TWICE DAILY UNTIL GONE Discharge Exam The patient reports feeling better and would like to return home. She denies any shortness of breath and is currently on room air. She reports a cough that is this point non-productive. The patient denies fevers, chills, sweats, chest pain, palpitations, claudication, wheezing, shortness of breath, nausea, vomiting, abdominal pain, dysuria, hematuria, urinary retention, paralysis, weakness, numbness and tingling. Constitutional: No fever, No chills, No sweats Eyes: No worsening of vision, No eye pain, No diplopia ENT: No hearing loss, No nasal symptoms, No trouble swallowing Respiratory: +Cough. No wheezing, No shortness of breath Cardiovascular: No chest pain, No claudication, No palpitations Abdomen: No pain, No nausea, No vomiting Musculoskeletal: No joint pain, No muscle pain, No swelling Genitourinary - Female: No dysuria, No urinary retention, No hematuria Neurologic: No paralysis, No weakness, No numbness/tingling Integumentary: No rash, No itch, No color change General appearance: +Morbidly obese. Well-developed, well-nourished, no apparent distress Head: Normocephalic, atraumatic Eyes: Normal inspection, PERRL, EOMI ENT: Normal ENT inspection, hearing grossly normal, pharynx normal Neck: Supple, no JVD, trachea midline Respiratory/Chest: +Slight crackles in bases. Normal breath sounds, no respiratory distress Cardiovascular: Regular rate & rhythm, no gallop, no murmur Abdomen/GI: Normal bowel sounds, non-tender, soft Extremities/Musculoskeletal: +1+ pitting edema. Normal inspection, no calf tenderness Neurological/Psych: Alert, normal mood/affect, oriented x 3 Skin: Normal color, warm/dry, no rash Hospital Course 87 y/o female with a history of DCIS s/p right mastectomy, h/o liver hemangioma , pulmonary nodules, h/oDVT/PE on chronic Xarelto, asthma, CKD stage III, HTN, HLD, osteoarthritis, and chronic low back pain who was recently treated for acute bronchitis with bronchospasm with steroids at the end of December. 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 No acute events overnight. Pt in sinus rhythm with HR in 60s- 70s - Leukocytosis resolved, HR and BP WNL - Rapid flu was negative - Hypoxia at rest resolved, on room air. Pt has h/o of requiring O2 w/ ambulation but has been non-compliant with this. Advised pt to use O2 w/ ambulation. She already has necessary supplies, repeat 2 step not necessary - Levaquin 750 mg IV qd, day 5 of 7. Will complete course as outpatient. - Continue pulmonary toilet w/spirometry and flutter valve - Continue nighttime O2. Pt denies CPAP - CXR reviewed showing interstitial thickening possibly pulmonary edema or an infectious process superimposed upon chronic lung disease/granulomatous process. - Continue Advair - Will schedule for pulmonology follow up as outpatient, repeat PFTs. When more stable consider EBUS/ENB eval? - Echo shows EF 60-65%. No WMA. Mild LVH. Type 1 diastolic dysfunction - ABG grossly unremarkable Spasmodic dysphonia--chronic, noted ? Possible BLE cellulitis--resolved - No erythema noted, may have been exacerbated chronic venous stasis changes MICHI on CKD Stage III--resolved - Creatinine back to baseline HTN, HLD--stable - Continue Cozaar 50 mg PO qd H/o PE/ DVT - Continue Xarelto 15 mg daily H/o DCIS - s/p R mastectomy - stable, in remission GERD -Continue Prilosec and Zantac DVT prophylaxis -Xarelto Code Status -Level V, DO NOT RESUSCITATE Dispo -From [facility] -PT/OT recommend home health I personally interviewed and examined the patient. I agree with history of present illness and physical exam mentioned above, I also performed my own history taking and examination. Past medical history and review of system has been obtained by myself I reviewed all pertinent labs and studies Reviewed current medications I discussed and formulated of the assessment and plan mentioned above. Please refer to the Summary mentioned above by Ms Garibay. 87-year-old female with chronic respiratory failure on nighttime and exertional oxygen supplement presented to the hospital with acute on chronic respiratory failure secondary to community-acquired pneumonia. Patient also has history of DVT/PE on chronic Xarelto, asthma, chronic kidney disease stage III, hypertension, dyslipidemia, pulmonary nodules, and DCIS status post right mastectomy. Patient was treated with bronchodilators, levofloxacin, continued home medications. Currently patient respiratory status improved, oxygen saturation is normal on room air at rest which is her baseline. Also patient has some vocal cord spasm, reported that she used to take Botox injection. For fear of chronic acid aspiration, she was continued on her PPI, but added H2 chad at night. Prior to discharge patient had 7 beats of atrial tachycardia, was referred to operator catalyst concentration for follow-up General Appearance: not in acute distress Eyes: normal Sclerae, extraocular muscle intact ENT: hearing grossly normal Neck: supple Respiratory/Chest: normal air entry bilateral ,no respiratory distress, no accessory muscle use Cardiovascular: regular rate, rhythm, no murmur Abdomen: non tender, soft, no masses Extremities: no edema Neurologic/Psychiatric: Awake alert oriented times place and person moves all extremities sensation intact cranial nerves II-12 appear to be intact Skin: normal color, warm/dry, no rash Lacey Michaud MD, [facility] hospitalist group Total Time Spent: Greater than 30 minutes This includes examination of the patient, discharge planning, medication reconciliation, and communication with other providers. Discharge Instructions Please refer to the electronic Patient Visit Report (Discharge Instructions) for additional information. Additional Copies To Tereso Mendez M.D.
[2018-01-29] MEDS: LEVOFLOXACIN / D5W 750 MG in PREMIXED IN D5W 150 ML IV SCH (16:14)
--- NOTE | 2018-01-29 16:47 | Consultant Recommendations ---
[employer] Mach[employer] Salesperson Recommendations Date of Service Jan 29, 2018. [employer]ing Mach[employer] Salesperson Recommendations Pulmonary follow up with Dr. Howell Monday02/02/18 at 1:00pm
--- NOTE | 2018-01-29 16:51 | Pulmonology Progress Note ---
Pulmonary Progress Note Date of Service Jan 29, 2018. Attending Dr. Mcfadden Subjective Patient seen and examined at bedside. Shortness of breath is much improved. Patient does have supplemental O2 as well as CPAP which she is tolerating well. She reports minimal sputum production and states it is clear. She has no fever or chills. No chest pain. She has no acute complaints and is anxious for discharge home. Objective GENERAL : No acute distress EYES: No icterus, gaze conjugate NOSE: No evidence of epistaxis MOUTH: No lesions or candidiasis NECK: Supple LUNGS: CTA B/L, no wheezes, rales or rhonchi HEART: Regular, rate controlled ABDOMEN: Soft, NT, ND, BS Present EXTREMITIES: No LE edema, pedal pulses intact NEURO: A&OX3 Assessment & Plan Acute on chronic respiratory failure * Follows with Dr. Howell -follow-up appointment is scheduled for this Monday, , at 1 PM * Currently being treated for pneumonia. Levofloxacin day 5 of 7 * Finish course of antibiotics as an outpatient * Discussion with outpatient office for close monitoring on discharge Thank you for including us in the care of this patient. We will continue to follow as an outpatient Data Medications: Current Inpatient Medications Medications (Trade) Dose Ordered Sig/Shilpa Route Start Time Stop Time Status Last Admin Dose Admin Acetaminophen (Tylenol Tab) 650 mg Q4H PRN PO 01/25/18 14:15 02/24/18 14:14 01/29/18 02:59 650 MG Ondansetron HCl (Zofran Inj) 4 mg Q6H PRN IV 01/25/18 14:15 02/24/18 14:14 01/29/18 07:30 4 MG Polyethylene (Miralax Powder Packet) 17 gm DAILY PO 01/26/18 09:00 02/25/18 08:59 01/29/18 07:39 17 GM Acetaminophen (Tylenol Tab) 325 mg Q6 PRN PO 01/25/18 14:15 02/24/18 14:14 01/27/18 02:04 325 MG Allopurinol (Zyloprim Tab) 100 mg QAM PO 01/26/18 09:00 02/25/18 08:59 01/29/18 07:40 100 MG Cholecalciferol (Vitamin D Tab) 1,000 inter.unit QAM PO 01/26/18 09:00 02/25/18 08:59 01/29/18 07:39 1,000 INTER.UNIT Duloxetine HCl (Cymbalta Cap) 30 mg HS PO 01/25/18 21:00 02/24/18 20:59 01/28/18 19:57 30 MG Salmeterol Xinafoate/ Fluticasone (Advair Diskus 500/50 Inh) 1 puff BID INH 01/25/18 21:00 02/24/18 20:59 01/29/18 07:38 1 PUFF Losartan Potassium (coZAAR TAB) 50 mg DAILY PO 01/26/18 09:00 02/25/18 08:59 01/29/18 07:39 50 MG Montelukast Sodium (Singulair Tab) 10 mg HS PO 01/25/18 21:00 02/24/18 20:59 01/28/18 19:58 10 MG Multivitamins/ Minerals (Multivitamin W/ Minerals Tab) 1 tab QAM PO 01/26/18 09:00 02/25/18 08:59 01/29/18 07:38 1 TAB Oxycodone HCl (Roxicodone Immediate Rel Tab) 5 mg Q6H PRN PO 01/25/18 14:15 02/08/18 14:14 01/29/18 13:00 5 MG Rivaroxaban (Xarelto Tab) 15 mg QAM PO 01/26/18 09:00 02/25/18 08:59 01/29/18 07:40 15 MG Ropinirole HCl (Requip Tab) 1 mg HS PO 01/25/18 21:00 02/24/18 20:59 01/28/18 19:58 1 MG Cyanocobalamin (Vitamin B-12 Tab) 1,000 mcg QAM PO 01/26/18 09:00 02/25/18 08:59 01/29/18 07:39 1,000 MCG Miscellaneous Information (Order Awaiting Action) 1 ea QS N/A 01/25/18 16:00 02/24/18 15:59 Pantoprazole Sodium (Protonix Tab) 40 mg QAM PO 01/26/18 09:00 02/25/18 08:59 01/29/18 07:38 40 MG Ranitidine HCl (zANTac TAB) 300 mg HS PO 01/25/18 21:00 02/24/18 20:59 01/28/18 19:58 300 MG Menthol (Nice Shani) 1 shani Q1H PRN SHNAI 01/25/18 14:15 02/24/18 14:14 Guaifenesin (Mucinex Contr Rel Tab) 1,200 mg Q12 PO 01/25/18 21:00 02/24/18 20:59 01/29/18 07:38 1,200 MG Levofloxacin 750 mg/Prmx 150 ml @ 100 mls/hr Q24H IV 01/25/18 16:00 02/01/18 15:59 01/29/18 16:14 100 MLS/HR Fentanyl (Duragesic Patch) 50 mcg Q3D TD 01/26/18 09:00 02/09/18 08:59 01/29/18 07:34 50 MCG Miscellaneous (Fentanyl Patch Remove & Waste) 1 ea Q3D N/A 01/26/18 08:59 02/25/18 08:58 01/29/18 07:33 1 EA Miscellaneous Information (Check Fentanyl Patch Placement) 1 ea QS N/A 01/25/18 16:00 02/24/18 15:59 01/29/18 16:15 1 EA Levalbuterol (Xopenex 1.25MG/ 0.5ML Neb) 1.25 mg Q6RWA INH 01/26/18 21:00 02/25/18 20:59 01/29/18 14:05 1.25 MG I & O: 24-Hour Column 01/30/18 08:00 Intake Total 360 ml Balance 360 ml Vital Signs: Date Time Temp Pulse Resp B/P (MAP) Pulse Ox O2 Delivery O2 Flow Rate FiO2 01/29/18 15:02 36.5 82 24 130/76 (94) 94 Nasal Cannula 3.0 01/29/18 14:05 67 18 96 Nasal Cannula 2.0 01/29/18 12:00 Nasal Cannula 2.0 01/29/18 11:04 36.6 80 20 121/78 (92) 93 Room Air 01/29/18 08:00 Nasal Cannula 2.0 01/29/18 07:13 82 18 93 Nasal Cannula 2.0 01/29/18 07:13 36.6 88 18 148/87 (107) 94 Room Air 01/29/18 04:00 36.6 85 20 149/73 (98) 92 CPAP 01/29/18 04:00 CPAP 01/29/18 00:00 36.7 84 20 129/59 (82) 94 2.0 01/29/18 00:00 CPAP 01/28/18 20:00 Nasal Cannula 2.0 01/28/18 19:45 106 22 94 Nasal Cannula 2.0 01/28/18 19:02 36.5 93 22 129/59 (82) 100 Nasal Cannula 2.0 Laboratory Results: Last 24 Hours Test 01/29/18 10:48 White Blood Count 6.33 K/uL Red Blood Count 3.77 M/uL Hemoglobin 13.3 g/dL Hematocrit 39.6 % Mean Corpuscular Volume 105.0 fL Mean Corpuscular Hemoglobin 35.3 pg Mean Corpuscular Hemoglobin Concent 33.6 g/dl RDW Standard Deviation 63.0 fL RDW Coefficient of Variation 16.4 % Platelet Count 199 K/uL Mean Platelet Volume 12.2 fL Sodium Level 138 mmol/L Potassium Level 4.2 mmol/L Chloride Level 106 mmol/L Carbon Dioxide Level 25 mmol/L Anion Gap 7.0 mmol/L Blood Urea Nitrogen 20 mg/dl Creatinine 1.13 mg/dl Est Creatinine Clear Calc Drug Dose 47.2 ml/min Estimated GFR () 51.0 Estimated GFR (Non- 44.0 BUN/Creatinine Ratio 17.9 Random Glucose 105 mg/dl Calcium Level 10.6 mg/dl
== END 2018-01-29 18:50 | disposition home health service (06) | DRG 871 ==
LOC: C.EDB 10:55 → C.EDINP 14:12 → ENRESERV 21:07 → CANRESERV 21:07 → ENRESERV 22:10 → C.MED 23:02
PROVIDERS: ADMIT Family Medicine; ATTEND Internal Medicine
DX: A41.9 Sepsis, unspecified organism (principal); J18.9 Pneumonia, unspecified organism; J96.20 Acute and chronic respiratory failure, unspecified whether with hypoxia or hypercapnia; L03.115 Cellulitis of right lower limb; L03.116 Cellulitis of left lower limb; Z68.41 Body mass index [BMI] 40.0-44.9, adult; N17.9 Acute kidney failure, unspecified; E66.2 Morbid (severe) obesity with alveolar hypoventilation; I12.9 Hypertensive chronic kidney disease with stage 1 through stage 4 chronic kidney disease, or unspecified chronic kidney disease; N18.3 Chronic kidney disease, stage 3 (moderate); E78.5 Hyperlipidemia, unspecified; R60.0 Localized edema; G24.9 Dystonia, unspecified; J45.909 Unspecified asthma, uncomplicated; Z66 Do not resuscitate; Z79.01 Long term (current) use of anticoagulants; Z79.899 Other long term (current) drug therapy; Z86.711 Personal history of pulmonary embolism; Z86.718 Personal history of other venous thrombosis and embolism; Z88.8 Allergy status to other drugs, medicaments and biological substances

== ENCOUNTER 2018-03-04 17:00 | Emergency (ER) | payer OTHER, BC ==
[~2018-03-04] VITALS: Ht 167.6 cm; Wt 120.0 kg
[~2018-03-04 17:00] MED LIST changes: +ACET-1175 PO; -AZEL0.15 NAE; -CALC-5 PO; -FLUT0.15 NAE; -HYZ/10015 PO; +LOSA50TA6 PO; +ONDA4TAB9 PO; +ROPI1TAB29 PO; -SPIR25TA PO
[2018-03-04 17:02] VITALS: TEMP 36.8; Ht 167.6 cm; Wt 120.0 kg
[2018-03-04] MEDS ORDERED: ONDANSETRON INJ 2 MG/ML 2 ML VIAL IV STA (17:22)
--- NOTE | 2018-03-04 17:34 | EMERGENCY ROOM VISIT NOTE ---
History Report prepared by Pablo: Wilfredo Segundo Under the Supervision of: Dr. Kt Scott M.D. First contact with patient: 17:08 Chief Complaint: NAUSEA Stated Complaint: STOMACH HURTS,SOB Nursing Triage Summary: "sick to my stomache yesterday, this morning wasn't feeling any better", nauseated, has not vomited. Thinks she has a UTI as she has had an increase in incontinence. Denies abdominal pain, blood in stool, diarrhea, or constipation. History of Present Illness The patient is a 87 year old female who presents to the Emergency Room with complaints of constant, severe nausea beginning yesterday afternoon. The patient reports starting to feel nauseas last night for which she took an juan antonio- seltzer. She notes going to bed and waking up this morning feeling just as nauseas as she did the previous night. The patient states that she feels very fatigued, weak, and has experienced a loss of appetite. She also notes experiencing pulsing in her legs when she stands, frequent headaches, and a persistent cough. The patient denies any burning urination, fevers, chills, back pain, chest pain, abdominal pain, diarrhea, constipation, blood in stool, falls, numbness or weakness in her legs, or a history of heart disease. She states that she uses 3L of oxygen at home as needed. The patient reports a history of back surgery for which she continues to experience baseline pain, a history of breast cancer for which she is in remission, and a history of pneumonia of which her last case occurred 3 weeks ago. She states that she currently takes Xarelto as a blood thinner secondary to her history of blood clots in her legs. The patient notes that her last episode of clotting in her legs occurred several years ago. 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 Source of History: patient, family Onset: 1 day ago. Position: abdomen, other (Global. ) Symptom Intensity: severe Quality: other (Nausea ) Timing: constant Modifying Factors (Worsening): other (None ) Modifying Factors (Relieving): other (none ) Associated Symptoms: + headache, + cough, + fatigue, + weakness, No melena, No diarrhea, No urinary symptoms Note: Associated Symptoms: Pulsing sensation in legs while standing, Weakness, Denies: Constipation Review of Systems See HPI for pertinent positives & negatives. A total of 10 systems reviewed and were otherwise negative. 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 (13) PE (pulmonary embolism) (14) Sepsis (15) Stomach problems Surgical Problems: (1) H/O mastectomy (2) History of back surgery (3) Hx of appendectomy (4) Hx of hernia repair (5) Hx of hysterectomy (6) Hx of resection of liver (7) Hx of total knee replacement Old medical records were reviewed. Nurse's notes were reviewed and I agree with. Family History Cancer Diabetes mellitus FH: heart disease FHx: gallbladder disease FHx: lung disease Hypertension Social History Smoking Status: Never Smoker Alcohol Use: occasionally Drug Use: none Marital Status: single Housing Status: lives alone Occupation Status: retired Current/Historical Medications Scheduled Allopurinol (Zyloprim), 100 MG PO QAM Ascorbic Acid (Ascorbic Acid), 500 MG PO DAILY Azelastine Hcl (Astelin Nasal [place]), 2 SPRAYS NA BID Calcium Carbonate-Vitamin D (Oyster Shell Calcium/D3 500-400 mg-Unit), 1 TAB PO BID Cephalexin (Keflex), 1 CAP PO QID Cholecalciferol (Vitamin D), 1,000 INTER.UNIT PO QAM Cyanocobalamin (Vitamin B12), 1,000 MCG PO QAM Cyclosporine Oph 0.05% (Restasis Oph 0.05%), 1 DROP OPB BID Duloxetine HCl (Cymbalta), 30 MG PO HS Fentanyl (Duragesic), 50 MCG TD [id number] Fluticasone Prop/Salmeterol (Advair Diskus 500/50 60 Dose), 1 PUFFS INH BID Fluticasone Propionate (Nasal) (Flonase Allergy Relief), 2 SPRAYS TEOFILO DAILY Home O2 Therapy (Oxygen), 2 LITERS INTNAS HS Losartan Potassium (Cozaar), 50 MG PO DAILY Montelukast Sodium (Singulair), 10 MG PO HS Multiple Vitamins W/ Minerals (Centrum), 1 TAB PO QAM Omeprazole (Prilosec), 20 MG PO DAILY Polyethylene (Miralax Powder Packet), 17 GM PO QAM Ranitidine (Zantac), 300 MG PO HS Rivaroxaban (Xarelto), 15 MG PO QAM Ropinirole HCl (Ropinirole HCl), 1 TAB PO HS Scheduled PRN Acetaminophen (Tylenol), 325-650 MG PO Q6 PRN for Pain Ondansetron (Ondansetron HCl), 4 MG PO Q6H PRN for Nausea Oxycodone Ir (Roxicodone Ir), 5 MG PO Q6H PRN for Pain [Ventolin Hfa 108], 2 PUFFS INH Q4H PRN for SOB/Wheezing Allergies Coded Allergies: Enoxaparin (Verified Allergy, Intermediate, RASH, PRURITUS, 08/04/16) Physical Exam Vital Signs Date Time Temp Pulse Resp B/P (MAP) Pulse Ox O2 Delivery O2 Flow Rate FiO2 03/04/18 19:47 82 20 148/83 94 03/04/18 18:27 78 20 163/80 93 Room Air 03/04/18 17:02 36.8 76 20 154/77 89 Room Air Physical Exam General: Chronically-ill appearing older female on supplemental oxygen in no acute distress. HEENT: Normal cephalic atraumatic. Pupils are equal round and reactive to light. Extraocular movements are intact. Oropharynx is pink with moist mucous membranes. No swelling of the mouth lips or tongue. Neck: Supple with a midline trachea. No meningeal signs or stiffness, no JVD or bruits. No Stridor. Chest: Clear to auscultation bilaterally. No wheezes or rhonchi. No increased work of breathing. Heart: regular rate and rhythm. Abdomen: Nontender old surgical scars no redness or warmth. Extremities: Trace pedal edema. No calf tenderness or assymetry Spine/Back. Non tender to palpation. No CVA tenderness Skin: Good turgor without rashes. Neurologic exam: Cranial nerves two through 12 are intact. Motor and sensation are intact and symmetrical throughout. Medical Decision & Procedures ER Provider Diagnostic Interpretation: Radiology results as stated below per my review and radiologist interpretation: [~ rep ct add3]] ABDOMEN 2VIEW W/PA CHEST RTN CLINICAL HISTORY: ABDOMINAL PAIN/GI pain COMPARISON STUDY: 01/25/2018 FINDINGS: Mild stable cardiomegaly. Mild chronic basilar and midlung parenchymal fibrosis. Bowel pattern is considered nonobstructive. Stable postoperative changes to the low lumbar spine. IMPRESSION: 1. No acute process of the chest. 2. Nonobstructive bowel pattern. The above report was generated using voice recognition software. It may contain grammatical, syntax or spelling errors. Electronically signed by: Wm Browne M.D. 03/04/2018 6:00 PM Dictated Date/Time: 03/04/2018 5:59 PM Laboratory Results 03/04/18 18:00 Red Blood Count 3.76, Mean Corpuscular Volume 104.5, Mean Corpuscular Hemoglobin 34.8, Mean Corpuscular Hemoglobin Concent 33.3, Mean Platelet Volume 12.0, Neutrophils (%) (Auto) 55.9, Lymphocytes (%) (Auto) 26.1, Monocytes (%) ( Auto) 15.9, Eosinophils (%) (Auto) 1.0, Basophils (%) (Auto) 0.2, Neutrophils # (Auto) 5.26, Lymphocytes # (Auto) 2.45, Monocytes # (Auto) 1.49, Eosinophils # ( Auto) 0.09, Basophils # (Auto) 0.02 03/04/18 18:00 Test 03/04/18 16:05 03/04/18 17:40 03/04/18 18:00 03/04/18 18:11 Urine Color YELLOW Urine Appearance CLEAR (CLEAR) Urine pH 8.0 (4.5-7.5) Urine Specific [place] 1.010 (1.000-1.030) Urine Protein NEG (NEG) Urine Glucose (UA) NEG (NEG) Urine Ketones NEG (NEG) Urine Occult Blood TRACE (NEG) Urine Nitrite POS (NEG) Urine Bilirubin NEG (NEG) Urine Urobilinogen NEG (NEG) Urine Leukocyte Esterase SMALL (NEG) Urine WBC (Auto) 5-10 /hpf (0-5) Urine RBC (Auto) 0-4 /hpf (0-4) Urine Hyaline Casts (Auto) 1-5 /lpf (0-5) Urine Epithelial Cells (Auto) >30 /lpf (0-5) Urine Bacteria (Auto) 4+ (NEG) Influenza Type A Antigen Neg for Influ A (NEG) Influenza Type B Antigen Neg for Influ B (NEG) White Blood Count 9.39 K/uL (4.8-10.8) Red Blood Count 3.76 M/uL (4.2-5.4) Hemoglobin 13.1 g/dL (12.0-16.0) Hematocrit 39.3 % (37-47) Mean Corpuscular Volume 104.5 fL (80-100) Mean Corpuscular Hemoglobin 34.8 pg (25-34) Mean Corpuscular Hemoglobin Concent 33.3 g/dl (32-36) Platelet Count 197 K/uL (130-400) Mean Platelet Volume 12.0 fL (7.4-10.4) Neutrophils (%) (Auto) 55.9 % Lymphocytes (%) (Auto) 26.1 % Monocytes (%) (Auto) 15.9 % Eosinophils (%) (Auto) 1.0 % Basophils (%) (Auto) 0.2 % Neutrophils # (Auto) 5.26 K/uL (1.4-6.5) Lymphocytes # (Auto) 2.45 K/uL (1.2-3.4) Monocytes # (Auto) 1.49 K/uL (0.11-0.59) Eosinophils # (Auto) 0.09 K/uL (0-0.5) Basophils # (Auto) 0.02 K/uL (0-0.2) RDW Standard Deviation 61.9 fL (36.4-46.3) RDW Coefficient of Variation 16.2 % (11.5-14.5) Immature Granulocyte % (Auto) 0.9 % Immature Granulocyte # (Auto) 0.08 K/uL (0.00-0.02) Anion Gap 4.0 mmol/L (3-11) Est Creatinine Clear Calc Drug Dose 51.7 ml/min Estimated GFR () 57.0 Estimated GFR (Non- 49.2 BUN/Creatinine Ratio 17.4 (10-20) Calcium Level 9.9 mg/dl (8.5-10.1) Total Bilirubin 0.5 mg/dl (0.2-1) Direct Bilirubin 0.1 mg/dl (0-0.2) Aspartate Amino Transf (AST/SGOT) 18 U/L (15-37) Alanine Aminotransferase (ALT/SGPT) 22 U/L (12-78) Alkaline Phosphatase 96 U/L (45-117) Total Protein 6.4 gm/dl (6.4-8.2) Albumin 3.4 gm/dl (3.4-5.0) Lipase 123 U/L (73-393) Bedside Troponin I < 0.030 ng/ml (0-0.045) Test 03/04/18 18:41 Prothrombin Time 11.4 SECONDS (9.0-12.0) Prothromb Time International Ratio 1.1 (0.9-1.1) Activated Partial Thromboplast Time 27.8 SECONDS (21.0-31.0) Partial Thromboplastin Ratio 1.1 Date/Time Source Procedure Growth Status 03/04/18 16:05 Urine,Catheterized Urine Culture - Final Escherichia Coli Esbl Complete Laboratory studies as stated above per my review. Medications Administered Medications (Trade) Dose Ordered Sig/Shilpa Route Start Time Stop Time Status Last Admin Dose Admin Ondansetron HCl (Zofran Inj) 4 mg NOW STAT IV 03/04/18 17:22 03/04/18 17:24 DC 03/04/18 18:18 4 MG Cephalexin Monohydrate (Keflex Cap) 500 mg NOW ONCE PO 03/04/18 19:30 03/04/18 19:31 DC 03/04/18 19:43 500 MG Ondansetron HCl (ZOFRAN ODT 4MG Home Pack) 1 homepack UD ONCE PO 03/04/18 20:00 03/04/18 20:02 DC 03/04/18 19:53 1 HOMEPACK ECG Per My Interpretation Indication: nausea Rate (beats per minute): 71 Rhythm: normal sinus Findings: no acute ischemic change, left axis deviation Comparison ECG Date: January 25 2018 Change: no significant change ED Course 1708: Past medical records reviewed. The patient was evaluated in room C12, and a complete history and physical examination were performed. 1721: Ordered Zofran Inj 4mg IV. 1920: I reevaluated the patient. She states that she feels great and would like to go home. I am waiting on her urine sample. 1929: Ordered Keflex Cap 500mg PO 1934: Upon reevaluation, the patient is resting comfortably. I discussed the results and treatment plan with her. She verbalized agreement of the treatment plan. The patient was discharged home. Medical Decision Differentials include, but are not limited to; dehydration, viral illness, cardiac disease, bowel obstruction, electrolyte or metabolic abnormality. This patient comes in as described above. She is complaining of some nausea. She looks well on exam. Her abdomen is benign and not significantly tender. She has had no chest pain or shortness of breath. IV access established multiple blood testing was obtained acute abdominal series does not show any acute findings. She has no acute electrolyte or metabolic abnormalities. She has nothing to suggest sepsis or significant bacterial infection. She was given IV Zofran and is feeling significantly better hungry and is asking to go home. She has nothing she has acute cardiac event. Her urinalysis does suggest a UTI. She was started on Keflex. A backup culture is pending. The patient was encouraged to follow-up with her regular doctor next couple days particularly if not feeling better. She should also return to the ER if: fever , back pain, worsening of symptoms, failure symptoms resolve inthe next couple days, any new problems or concerns. She was happy with the plan and was discharged to home. Medication Reconcilliation Current Medication List: was personally reviewed by me Blood Pressure Screening Patient's blood pressure: Elevated blood pressure Blood pressure disposition: Referred to PCP Impression Primary Impression: UTI (urinary tract infection) Additional Impression: Nausea Scribe Attestation The scribe's documentation has been prepared under my direction and personally reviewed by me in its entirety. I confirm that the note above accurately reflects all work, treatment, procedures, and medical decision making performed by me. Departure Information Dispostion Home / Self-Care Prescriptions Cephalexin (KEFLEX) 250 Mg Cap 1 CAP PO QID for 7 Days, #28 CAP Prov: Kt Scott M.D. 03/04/18 Referrals Tereso Mendez M.D. (PCP) Forms HOME CARE DOCUMENTATION FORM, IMPORTANT VISIT INFORMATION Patient Instructions My [facility] Additional Instructions Rest. Drink plenty of fluids. Return if: Worsening of symptoms, back pain, shortness of breath, fever or chills, any new problems or concerns May use Zofran 4 mg every 8 hours if needed for nausea or vomiting Use Keflex 250 mg, 4 times a day for 7 daysantibiotic Follow-up with your doctor in 1-2 days for recheck or return to ER symptoms worsen. Problem Qualifiers
--- NOTE | 2018-03-04 18:01 | DIAGNOSTIC IMAGING REPORT ---
ABDOMEN 2VIEW W/PA CHEST RTN CLINICAL HISTORY: ABDOMINAL PAIN/GI pain COMPARISON STUDY: 01/25/2018 FINDINGS: Mild stable cardiomegaly. Mild chronic basilar and midlung parenchymal fibrosis. Bowel pattern is considered nonobstructive. Stable postoperative changes to the low lumbar spine. IMPRESSION: 1. No acute process of the chest. 2. Nonobstructive bowel pattern. The above report was generated using voice recognition software. It may contain grammatical, syntax or spelling errors. Electronically signed by: Wm Browne M.D. 03/04/2018 6:00 PM Dictated Date/Time: 03/04/2018 5:59 PM
[2018-03-04 18:15] LABS: BASO % 0.2 %; BASO ABS # 0.02 K/uL (0-0.2); EOS ABS # 0.09 K/uL (0-0.5); HEMATOCRIT 39.3 % (37-47); HEMOGLOBIN 13.1 g/dL (12.0-16.0); IG# 0.08 K/uL (0.00-0.02); LYMPH % 26.1 %; LYMPH ABS # 2.45 K/uL (1.2-3.4); MEAN CELL VOLUME 104.5 fL (80-100); MEAN CORPUSCULAR HEMOGLOBIN 34.8 pg (25-34); MEAN CORPUSCULAR HGB CONC 33.3 g/dl (32-36); MONO % 15.9 %; MONO ABS # 1.49 K/uL (0.11-0.59); NEUT % 55.9 %; NEUT ABS # 5.26 K/uL (1.4-6.5); PLATELET COUNT 197 K/uL (130-400); RED CELL DISTRIBUTION WIDTH CV 16.2 % (11.5-14.5); RED CELL DISTRIBUTION WIDTH SD 61.9 fL (36.4-46.3); WHITE BLOOD COUNT 9.39 K/uL (4.8-10.8)
[2018-03-04 18:19] LABS: INFLUENZA B ANTIGEN Neg for Influ B (NEG)
[2018-03-04] MEDS ORDERED: ASCO500T16 PO (18:20)
[2018-03-04] MEDS ORDERED: FLUT0.15 NAE (18:26)
[2018-03-04] MEDS ORDERED: CALC-439 PO (18:29)
[2018-03-04 18:34] LABS: ALBUMIN 3.4 gm/dl (3.4-5.0); CALCIUM 9.9 mg/dl (8.5-10.1); CREATININE 1.03 mg/dl (0.60-1.20); POTASSIUM 4.2 mmol/L (3.5-5.1)
[2018-03-04] MEDS ORDERED: VENTOLIN HFA 108 INH (18:36)
[2018-03-04 18:37] LABS: TOTAL PROTEIN 6.4 gm/dl (6.4-8.2)
[2018-03-04 19:10] LABS: INR 1.1 (0.9-1.1); PTT PATIENT 27.8 SECONDS (21.0-31.0)
[2018-03-04] MEDS ORDERED: CEPH-570 PO (19:26)
[2018-03-04] MEDS ORDERED: CEPHALEXIN MONOHYDRATE 250 MG CAP PO ONE (19:30)
[2018-03-04 19:47] VITALS: BP 148/83; PULSE 82; O2SAT 94
[2018-03-04] MEDS ORDERED: ONDANSETRON HOME PACK 4MG OD TAB PO ONE (20:00)
--- NOTE | 2018-03-06 15:59 | Pharmacy Progress Note ---
ED Pharmacist Culture FollowUp Date of Service: Mar 06, 2018. Patient's urine culture growin E. coli ESBL resistant to fluoquinolones/bactrim , ABX options include fosfomycin, nitrofurantoin and IV carbapenem. Discussed with Dr. Love who agrees with Fosfomycin 3 gm PO x 1 dose. Patient should discontinue keflex. Called patient's home phone number @ [phone] and received busy signals. Called alternative phone and was sent to voicemailbox that was full. Fosfomycin may need to be ordered in by pharmacy patient chooses. Will attempt contact again.
== END 2018-03-04 19:49 | disposition home or self-care (01) ==
LOC: C.EDB 17:01 → C.EDC 19:49
DX: N39.0 Urinary tract infection, site not specified (principal); R11.0 Nausea; Z99.81 Dependence on supplemental oxygen; Z85.3 Personal history of malignant neoplasm of breast; Z87.01 Personal history of pneumonia (recurrent); Z79.01 Long term (current) use of anticoagulants; J45.909 Unspecified asthma, uncomplicated; N18.3 Chronic kidney disease, stage 3 (moderate); I12.9 Hypertensive chronic kidney disease with stage 1 through stage 4 chronic kidney disease, or unspecified chronic kidney disease; Z85.118 Personal history of other malignant neoplasm of bronchus and lung; Z86.718 Personal history of other venous thrombosis and embolism; Z86.711 Personal history of pulmonary embolism; Z96.659 Presence of unspecified artificial knee joint; Z90.710 Acquired absence of both cervix and uterus; Z80.9 Family history of malignant neoplasm, unspecified; Z83.3 Family history of diabetes mellitus; Z82.49 Family history of ischemic heart disease and other diseases of the circulatory system; Z79.899 Other long term (current) drug therapy; Z88.8 Allergy status to other drugs, medicaments and biological substances

== ENCOUNTER → 2018-03-13 | Outpatient (CLI) | payer OTHER, BC ==
[~2018-03-13] MED LIST changes: +ASCO500T16 PO; -ASTN; +ASTN NAE; +CALC-439 PO; +CEPH-570 PO; +FLUT0.15 NAE; +GABA-113 PO; +NITR1CAP32 PO; +VENTOLIN HFA 108 INH
== END | disposition home or self-care (01) ==
LOC: C.LABBC 10:51
PROVIDERS: ATTEND Physician Assistant Medical
DX: N39.0 Urinary tract infection, site not specified (principal)

== ENCOUNTER 2018-03-16 00:39 | Inpatient (IN) | payer OTHER, BC ==
[~2018-03-16] VITALS: Ht 167.6 cm; Wt 119.6 kg
[2018-03-16] VITALS (9 sets, daily range): BP systolic 99–139; BP diastolic 54–80; PULSE 72–92; TEMP 36.3–36.8; O2SAT 92–97; Ht 167.6 cm; Wt 119.6 kg
[~2018-03-16 00:39] MED LIST changes: -GABA-113 PO; -NITR1CAP32 PO
[2018-03-16] MEDS ORDERED: ONDANSETRON 4MG OD TAB ONE (00:50)
--- NOTE | 2018-03-16 01:00 | EMERGENCY ROOM VISIT NOTE ---
History Report prepared by Pablo: Bi Mclean Under the Supervision of: Dr. Marcelina Smith D.O. First contact with patient: 00:43 Chief Complaint: WEAKNESS Stated Complaint: WEAKNESS AND NAUSEA/UTI TX History of Present Illness The patient is an 87 year old female who presents to the Emergency Room with complaints of constant weakness beginning three hours ago. The patient states that she got up to go to the bathroom to urinate three hours ago. She notes that she was not able to make it to the bathroom because she was feeling weak and had to sit down. She reports that she has since urinated twice. She also complains of vomiting x2 and of a headache. She denies any abdominal pain. Per nurse, the patient had an oxygen saturation of 85% on room air. The patient states that she was started on antibiotics yesterday for a UTI. She notes that she wears oxygen at night and when she walks around. She reports that she has no history of atrial fibrillation and fluid in her lungs, but has a history of spasmodic dysphonia. The patient states that she does not take a water pill. Source of History: patient, nursing staff Onset: three hours ago Position: other (global) Quality: other (weakness) Timing: constant Associated Symptoms: + headache, + vomiting (x2), No abdominal pain Note: The patient states that she has urinated twice in the last three hours. Per nurse, the patient had an oxygen saturation of 85% on room air. Review of Systems See HPI for pertinent positives & negatives. A total of 10 systems reviewed and were otherwise negative. 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 (17) Stomach problems (18) UTI (urinary tract infection) Surgical Problems: (1) H/O mastectomy (2) History of back surgery (3) Hx of appendectomy (4) Hx of hernia repair (5) Hx of hysterectomy (6) Hx of resection of liver (7) Hx of total knee replacement Family History Cancer Diabetes mellitus FH: heart disease FHx: gallbladder disease FHx: lung disease Hypertension Social History Smoking Status: Never Smoker Alcohol Use: occasionally Drug Use: none Marital Status: single Housing Status: lives alone Occupation Status: retired Current/Historical Medications Scheduled Allopurinol (Zyloprim), 100 MG PO QAM Azelastine Hcl (Astelin Nasal [place]), 2 SPRAYS TEOFILO BID Calcium Carbonate-Vitamin D (Oyster Shell Calcium/D3 500-400 mg-Unit), 1 TAB PO BID Cyclosporine Oph 0.05% (Restasis Oph 0.05%), 1 DROP OPB BID Duloxetine HCl (Cymbalta), 30 MG PO HS Fentanyl (Duragesic), 50 MCG TD [id number] Fluticasone Prop/Salmeterol (Advair Diskus 500/50 60 Dose), 1 PUFFS INH BID Fluticasone Propionate (Nasal) (Flonase Allergy Relief), 2 SPRAYS TEOFILO DAILY Gabapentin (Neurontin), 300 MG PO HS Home O2 Therapy (Oxygen), 2 LITERS INTNAS HS Losartan Potassium (Cozaar), 50 MG PO DAILY Montelukast Sodium (Singulair), 10 MG PO HS Multiple Vitamins W/ Minerals (Centrum), 1 TAB PO QAM Nitrofurantoin Macrocrystals (Macrodantin), 100 MG PO BID Omeprazole (Prilosec), 20 MG PO DAILY Polyethylene (Miralax Powder Packet), 17 GM PO QAM Ranitidine (Zantac), 300 MG PO HS Rivaroxaban (Xarelto), 15 MG PO QAM Ropinirole HCl (Ropinirole HCl), 1 TAB PO HS Scheduled PRN Acetaminophen (Tylenol), 325-650 MG PO Q6 PRN for Pain Ondansetron (Ondansetron HCl), 4 MG PO Q6H PRN for Nausea Oxycodone Ir (Roxicodone Ir), 5 MG PO Q6H PRN for Pain [Ventolin Hfa 108], 2 PUFFS INH Q4H PRN for SOB/Wheezing Allergies Coded Allergies: Enoxaparin (Verified Allergy, Intermediate, RASH, PRURITUS, 08/04/16) Physical Exam Vital Signs Date Time Temp Pulse Resp B/P (MAP) Pulse Ox O2 Delivery O2 Flow Rate FiO2 03/16/18 03:02 88 17 122/68 94 Nasal Cannula 4.0 Humidified Oxygen 03/16/18 02:32 88 94 Nasal Cannula 4.0 03/16/18 02:00 95 20 128/56 95 Nasal Cannula 4.0 03/16/18 01:32 96 03/16/18 01:22 92 Nasal Cannula 4.0 03/16/18 01:22 92 Nasal Cannula 4.0 03/16/18 01:16 36.7 129 20 144/72 86 Room Air 03/16/18 00:50 129 03/16/18 00:43 144/72 Physical Exam General: Appears SOB, dry heaving. HEENT: Head - normocephalic and atraumatic Pupils are equal, round, and reactive to light. Extraocular eye muscles are intact, and sclera are anicteric. Nose - moist nasal mucosa without discharge. Mouth - moist buccal mucosa. Oropharynx is nonerythematous and there is no tonsillar exudate or edema noted. Neck: Supple; no JVD, nuchal rigidity, cervical lymphadenopathy, or auscultated bruits. Heart: Irregularly irregular and tachycardic. There is a normal S1 and S2 with no murmurs, clicks, or gallops appreciated. Lungs: Clear to auscultation bilaterally with no wheezes, rales, or rhonchi. Abdomen: Soft, completely nontender, nondistended, with good bowel sounds. There are no palpable pulsatile masses or hepatosplenomegaly. There is no guarding, rigidity, or rebound noted. Extremities: No evidence of cyanosis and clubbing. There are easily palpable peripheral pulses. Trace pedal edema. Skin: warm and dry with good turgor and no rashes. Medical Decision & Procedures ER Provider Diagnostic Interpretation: Radiology results as stated below per my review and interpretation: CHEST ONE VIEW PORTABLE X-RAY: Left lower lobe infiltrate. Mild pulmonary vascular congestion. Laboratory Results 03/16/18 01:54 Red Blood Count 3.89, Mean Corpuscular Volume 104.4, Mean Corpuscular Hemoglobin 35.0, Mean Corpuscular Hemoglobin Concent 33.5, Mean Platelet Volume 12.1, Neutrophils (%) (Auto) 87.2, Lymphocytes (%) (Auto) 6.5, Monocytes (%) ( Auto) 5.3, Eosinophils (%) (Auto) 0.2, Basophils (%) (Auto) 0.1, Neutrophils # ( Auto) 24.76, Lymphocytes # (Auto) 1.84, Monocytes # (Auto) 1.49, Eosinophils # ( Auto) 0.05, Basophils # (Auto) 0.03 03/16/18 01:54 Test 03/16/18 01:54 03/16/18 02:20 03/16/18 02:54 White Blood Count 28.38 K/uL (4.8-10.8) Red Blood Count 3.89 M/uL (4.2-5.4) Hemoglobin 13.6 g/dL (12.0-16.0) Hematocrit 40.6 % (37-47) Mean Corpuscular Volume 104.4 fL (80-100) Mean Corpuscular Hemoglobin 35.0 pg (25-34) Mean Corpuscular Hemoglobin Concent 33.5 g/dl (32-36) Platelet Count 153 K/uL (130-400) Mean Platelet Volume 12.1 fL (7.4-10.4) Neutrophils (%) (Auto) 87.2 % Lymphocytes (%) (Auto) 6.5 % Monocytes (%) (Auto) 5.3 % Eosinophils (%) (Auto) 0.2 % Basophils (%) (Auto) 0.1 % Neutrophils # (Auto) 24.76 K/uL (1.4-6.5) Lymphocytes # (Auto) 1.84 K/uL (1.2-3.4) Monocytes # (Auto) 1.49 K/uL (0.11-0.59) Eosinophils # (Auto) 0.05 K/uL (0-0.5) Basophils # (Auto) 0.03 K/uL (0-0.2) RDW Standard Deviation 61.4 fL (36.4-46.3) RDW Coefficient of Variation 16.1 % (11.5-14.5) Immature Granulocyte % (Auto) 0.7 % Immature Granulocyte # (Auto) 0.21 K/uL (0.00-0.02) Prothrombin Time 10.9 SECONDS (9.0-12.0) Prothromb Time International Ratio 1.0 (0.9-1.1) Activated Partial Thromboplast Time 24.8 SECONDS (21.0-31.0) Partial Thromboplastin Ratio 1.0 Anion Gap 5.0 mmol/L (3-11) Est Creatinine Clear Calc Drug Dose 50.3 ml/min Estimated GFR () 55.1 Estimated GFR (Non- 47.5 BUN/Creatinine Ratio 20.8 (10-20) Calcium Level 9.7 mg/dl (8.5-10.1) Total Bilirubin 0.9 mg/dl (0.2-1) Aspartate Amino Transf (AST/SGOT) 19 U/L (15-37) Alanine Aminotransferase (ALT/SGPT) 23 U/L (12-78) Alkaline Phosphatase 94 U/L (45-117) Troponin I < 0.015 ng/ml (0-0.045) Pro-B-Type Natriuretic Peptide 143 pg/ml (0-1800) Total Protein 6.4 gm/dl (6.4-8.2) Albumin 3.6 gm/dl (3.4-5.0) Globulin 2.8 gm/dl (2.5-4.0) Albumin/Globulin Ratio 1.3 (0.9-2) Urine Color YELLOW Urine Appearance CLEAR (CLEAR) Urine pH 7.0 (4.5-7.5) Urine Specific [place] 1.011 (1.000-1.030) Urine Protein NEG (NEG) Urine Glucose (UA) NEG (NEG) Urine Ketones NEG (NEG) Urine Occult Blood NEG (NEG) Urine Nitrite NEG (NEG) Urine Bilirubin NEG (NEG) Urine Urobilinogen NEG (NEG) Urine Leukocyte Esterase NEG (NEG) Urine WBC (Auto) 1-5 /hpf (0-5) Urine RBC (Auto) 0-4 /hpf (0-4) Urine Hyaline Casts (Auto) 0 /lpf (0-5) Urine Epithelial Cells (Auto) 0-5 /lpf (0-5) Urine Bacteria (Auto) NEG (NEG) Bedside Lactic Acid Venous 1.90 mmol/L (0.90-1.70) Laboratory results per my review. Medications Administered Medications (Trade) Dose Ordered Sig/Shilpa Route Start Time Stop Time Status Last Admin Dose Admin Ondansetron HCl (Zofran Odt) 4 mg STK-MED ONCE .ROUTE 03/16/18 00:50 03/16/18 00:51 DC 03/16/18 00:50 4 MG Piperacillin Sod/ Tazobactam Sod (Zosyn Iv) 4.5 gm NOW STAT IV 03/16/18 02:18 03/16/18 02:20 DC 03/16/18 02:42 4.5 GM Levofloxacin (Levaquin / D5W) 750 mg NOW ONCE IV 03/16/18 02:30 03/16/18 02:31 DC 03/16/18 02:42 750 MG Procedure Zofran Odt 4mg Zosyn Iv 4.5gm IV Levofloxacin 750mg IV ECG Per My Interpretation Indication: weakness Rate (beats per minute): 96 Rhythm: normal sinus Findings: no ectopy, other (No ischemia, no ST segment changes) ED Course 0048: The patient was evaluated in room B6. A complete history and physical examination were performed. Nursing notes and previous electronic medical records were reviewed. IV lock was established and labs were drawn as above. A septic protocol was performed. A 12-lead EKG was obtained. The patient had a chest x-ray as described above. 0050: Zofran Odt 4mg 0218: Zosyn Iv 4.5gm IV 0220: I looked back at the patients urine culture from 03/13/2018. It grew out E. coli that had significant resistance but was susceptible to Zosyn. 0230: Levofloxacin 750mg IV 0240: I reevaluated and updated the patient. Her vitals are stable and she is currently getting antibiotics. I went over everything with her and her sister-in -law. 0315: Upon reevaluation, I discussed findings and results with the patient. She verbalized agreement of the treatment plan. I spoke with Dr. Byrne of the [facility] Hospitalist Service. The patient will be evaluated for further management and care. Medical Decision The patient is a 87 year old female who presents to the Emergency Room with complaints of constant weakness beginning three hours ago. Differential diagnoses include: Afib with RVR, CHF, pneumonia, dehydration, bronchitis, UTI, and sepsis. Lab Results Show: White count of 28.3. 87% neutrophils. Stable H&H. BUN 22. Creatinine 1.0 Lactic 1.9. LFTs normal. Negative troponin. Normal BNP. Normal Coags. Normal urine. This is an 87-year-old female patient presents to the emergency department with urinary frequency and shortness of breath. The patient was hypoxic for EMS. She had only taken 1 day of Macrobid for UTI. That culture from March 13 grew out E. coli which had significant resistance. However, it was sensitive to Zosyn. On chest x-ray, the patient had evidence of a left lower lobe infiltrate and some superimposed congestive heart failure. At no time was she hypotensive. I did not feel it was appropriate to bolus her with IV crystalloid therapy. Upon presentation, the patient's heart rate was in the 130s. It appeared that she may have been in atrial fibrillation with rapid ventricular response. However with closer look at the rhythm strips, the rhythm was regular. However the patient did break into a much slower rhythm. I discussed the case with the [facility] Hospitalist and they will evaluate for further management. Medication Reconcilliation Current Medication List: was personally reviewed by me Blood Pressure Screening Patient's blood pressure: Elevated blood pressure Blood pressure disposition: Elevated BP felt to be situational Consults Time Called: 030 Consulting Physician: Dr. Byrne - Hospitalist, [facility] Returned Call: [id number] Discussed the patient's case. The patient will be evaluated for further management. Impression Primary Impression: Left lower lobe pneumonia Additional Impression: Hypoxia Scribe Attestation The scribe's documentation has been prepared under my direction and personally reviewed by me in its entirety. I confirm that the note above accurately reflects all work, treatment, procedures, and medical decision making performed by me. Departure Information Dispostion Being Evaluated By Hospitalist Referrals No Doctor, Assigned (PCP) Patient Instructions My [facility] Health Problem Qualifiers Primary Impression: Left lower lobe pneumonia Pneumonia type: due to unspecified organism Qualified Codes: J18.1 - Lobar pneumonia, unspecified organism
[2018-03-16] MEDS ORDERED: GABA-113 PO (01:49)
[2018-03-16] MEDS ORDERED: NITR1CAP32 PO (01:51)
[2018-03-16 02:10] LABS: HEMATOCRIT 40.6 % (37-47); HEMOGLOBIN 13.6 g/dL (12.0-16.0); MEAN CELL VOLUME 104.4 fL (80-100); MEAN CORPUSCULAR HGB CONC 33.5 g/dl (32-36); MEAN PLATELET VOLUME 12.1 fL (7.4-10.4); PLATELET COUNT 153 K/uL (130-400); RED CELL DISTRIBUTION WIDTH CV 16.1 % (11.5-14.5); RED CELL DISTRIBUTION WIDTH SD 61.4 fL (36.4-46.3); WHITE BLOOD COUNT 28.38 K/uL (4.8-10.8)
[2018-03-16] MEDS ORDERED: PIPERACILLIN/TAZOBACTAM 4.5 GM/100ML D5W IV STA (02:18)
[2018-03-16 02:20] LABS: PTT PATIENT 24.8 SECONDS (21.0-31.0)
[2018-03-16] MEDS ORDERED: LEVAQUIN 750MG / 150ML D5W IV ONE (02:30)
[2018-03-16 02:31] LABS: ALBUMIN 3.6 gm/dl (3.4-5.0); ALT/SGPT 23 U/L (12-78); AST/SGOT 19 U/L (15-37); BLOOD UREA NITROGEN 22 mg/dl (7-18); CALCIUM 9.7 mg/dl (8.5-10.1); CARBON DIOXIDE 26 mmol/L (21-32); CREATININE 1.06 mg/dl (0.60-1.20); GLUCOSE 126 mg/dl (70-99); POTASSIUM 3.7 mmol/L (3.5-5.1); SODIUM 141 mmol/L (136-145)
[2018-03-16 02:36] LABS: ALKALINE PHOSPHATASE 94 U/L (45-117); TOTAL PROTEIN 6.4 gm/dl (6.4-8.2)
[2018-03-16 02:39] LABS: BASO % 0.1 %; BASO ABS # 0.03 K/uL (0-0.2); EOS % 0.2 %; EOS ABS # 0.05 K/uL (0-0.5); IG# 0.21 K/uL (0.00-0.02); LYMPH % 6.5 %; LYMPH ABS # 1.84 K/uL (1.2-3.4); MONO % 5.3 %; MONO ABS # 1.49 K/uL (0.11-0.59); NEUT % 87.2 %; NEUT ABS # 24.76 K/uL (1.4-6.5)
[2018-03-16] MEDS ORDERED: HYDROmorphone INJ 1 MG/ML SYR IV STA (03:14)
--- NOTE | 2018-03-16 03:14 | History and Physical ---
History & Physical Date & Time of Service: March 16, 2018 at 03:14 Chief Complaint: Weakness And Nausea/Uti Tx Primary Care Physician: Tereso Mendez M.D. History of Present Illness Source: patient, hospital records 87 yo F with Urinary incontinence, HTN, CKD III, DCIS (ductal carcinoma in situ) ,hx/o Lung AdenoCarcinoma s/p resection, Pulmonary nodules, chronic resp failure , presenting with progressive generalized weakness that started to this morning. She additionally reports urinary urgency, urinary frequency. no dysuria, no hematuria. She also reports nausea, headache. She reports cough, SOB at baseline. No fevers, chills, no chest pain, n/v, diarrhea. Patient was here in ED for 03/04 for UTI. She discharged with Keflex but patient does not recall taking antibiotic on discharge. After urine cx came back for E Coli on day of arrival resistant to Levaquin, Cipro, Bactrim, she was prescribed Macrobid. Patient only took 1 dose of Macrobid before arrival due to weakness. Patient had a recent admission for 01/25- for Pneumonia, treated with Levaquin. She was seen by Pulmonary Dr. Cool. Chronic respiratory inefficiency attributed to multiple factors including poorly controlled chris vs obesity hypoventilation or kyphosis. For evaluation of known pulmonary nodules, Pulmonary decided against Bronchoscopy and planned possible EBUS in future to evaluate.. In ED, she arrived 86% o2 on rm air, improved with NC 4L, afebrile,tachycardic no distress. Wht ct 28.3. HR eventually improved. She received Zosyn in the ED. Blood cxs pending Past Medical/Surgical History Medical Problems: (1) Acute renal failure (2) Acute renal failure superimposed on stage 3 chronic kidney disease (3) Anemia (4) Arrhythmia (5) Asthma (6) Back pain (7) Back pain (8) Bronchitis (9) Cellulitis (10) Cellulitis of right leg (11) Cellulitis of right leg (12) Cellulitis of right lower leg (13) CKD (chronic kidney disease), stage III (14) DCIS (ductal carcinoma in situ) (15) Deep vein blood clot of right lower extremity (16) Falling (17) Hematuria (18) Hemorrhagic cystitis (19) hx of wedge resection of lung (20) Hypertension (21) Hyponatremia (22) Hypoxia (23) Kidney disease (24) Low back pain (25) Lung cancer (26) Metabolic acidosis with normal anion gap and failure of bicarbonate regeneration (27) Nausea (28) Nausea (29) PE (pulmonary embolism) (30) Pneumonia (31) Pyuria (32) Right arm weakness (33) Sepsis (34) Stomach problems (35) UTI (urinary tract infection) (36) UTI (urinary tract infection) (37) Weakness Surgical Problems: (1) H/O mastectomy (2) History of back surgery (3) Hx of appendectomy (4) Hx of hernia repair (5) Hx of hysterectomy (6) Hx of resection of liver (7) Hx of total knee replacement Family History Cancer Diabetes mellitus FH: heart disease FHx: gallbladder disease FHx: lung disease Hypertension Social History Smoking Status: Never Smoker Smokeless Tobacco Use: No Alcohol Use: none Drug Use: none Marital Status: single Housing status: lives alone Occupational Status: retired Immunizations History of Influenza Vaccine: Yes Influenza Vaccine Date: Aug 20, 2010 History of Tetanus Vaccine?: UNSURE History of Pneumococcal: Yes Pneumococcal Date: Aug 13, 2008 History of Hepatitis B Vaccine: Unknown Allergies Coded Allergies: Enoxaparin (Verified Allergy, Intermediate, RASH, PRURITUS, 08/04/16) Home Medications Scheduled Allopurinol (Zyloprim), 100 MG PO QAM Azelastine Hcl (Astelin Nasal [place]), 2 SPRAYS TEOFILO BID Calcium Carbonate-Vitamin D (Oyster Shell Calcium/D3 500-400 mg-Unit), 1 TAB PO BID Cyclosporine Oph 0.05% (Restasis Oph 0.05%), 1 DROP OPB BID Duloxetine HCl (Cymbalta), 30 MG PO HS Fentanyl (Duragesic), 50 MCG TD [id number] Fluticasone Prop/Salmeterol (Advair Diskus 500/50 60 Dose), 1 PUFFS INH BID Fluticasone Propionate (Nasal) (Flonase Allergy Relief), 2 SPRAYS TEOFILO DAILY Gabapentin (Neurontin), 300 MG PO HS Home O2 Therapy (Oxygen), 2 LITERS INTNAS HS Losartan Potassium (Cozaar), 50 MG PO DAILY Montelukast Sodium (Singulair), 10 MG PO HS Multiple Vitamins W/ Minerals (Centrum), 1 TAB PO QAM Nitrofurantoin Macrocrystals (Macrodantin), 100 MG PO BID Omeprazole (Prilosec), 20 MG PO DAILY Polyethylene (Miralax Powder Packet), 17 GM PO QAM Ranitidine (Zantac), 300 MG PO HS Rivaroxaban (Xarelto), 15 MG PO QAM Ropinirole HCl (Ropinirole HCl), 1 TAB PO HS Scheduled PRN Acetaminophen (Tylenol), 325-650 MG PO Q6 PRN for Pain Ondansetron (Ondansetron HCl), 4 MG PO Q6H PRN for Nausea Oxycodone Ir (Roxicodone Ir), 5 MG PO Q6H PRN for Pain [Ventolin Hfa 108], 2 PUFFS INH Q4H PRN for SOB/Wheezing Review of Systems Constitutional: + weakness, + fatigue, No fever, No chills Respiratory: + cough, + shortness of breath, No hemoptysis Cardiovascular: No chest pain, No edema, No claudication, No palpitations Abdomen: No pain, No nausea, No vomiting Genitourinary - Female: + urinary frequency, + urinary urgency, No hematuria Neurologic: No numbness/tingling Integumentary: No rash, No itch Physical Exam Vital Signs Date Time Temp Pulse Resp B/P (MAP) Pulse Ox O2 Delivery O2 Flow Rate FiO2 03/16/18 03:02 88 17 122/68 94 Nasal Cannula 4.0 Humidified Oxygen 03/16/18 02:32 88 94 Nasal Cannula 4.0 03/16/18 02:00 95 20 128/56 95 Nasal Cannula 4.0 03/16/18 01:32 96 03/16/18 01:22 92 Nasal Cannula 4.0 03/16/18 01:22 92 Nasal Cannula 4.0 03/16/18 01:16 36.7 129 20 144/72 86 Room Air 03/16/18 00:50 129 03/16/18 00:43 144/72 GENERAL: alert, obese, mild distress EYE EXAM: normal conjunctiva, PERRL and EOM's grossly intact OROPHARYNX: no exudate, no erythema, lips, buccal mucosa, and tongue normal and mucous membranes are moist NECK: supple, no adenopathy, non-tender LUNGS:LLL crackles Normal chest wall mechanics HEART: no murmurs, S1 normal and S2 normal ABDOMEN: abdomen soft, non-tender, normo-active bowel sounds, no masses, no rebound or guarding. BACK: Back is symmetrical on inspection and there is no deformity, SKIN: no rashes and no bruising UPPER EXTREMITIES: upper extremities are grossly normal. LOWER EXTREMITIES: No pitting edema. NEURO EXAM: Normal sensorium, cranial nerves II-XII grossly intact, normal speech, no gross weakness of arms, no gross weakness of legs. Diagnostics Laboratory Results Results Past 24 Hours Test 03/16/18 01:54 03/16/18 02:20 03/16/18 02:54 Range/Units White Blood Count 28.38 4.8-10.8 K/uL Red Blood Count 3.89 4.2-5.4 M/uL Hemoglobin 13.6 12.0-16.0 g/dL Hematocrit 40.6 37-47 % Mean Corpuscular Volume 104.4 80-100 fL Mean Corpuscular Hemoglobin 35.0 25-34 pg Mean Corpuscular Hemoglobin Concent 33.5 32-36 g/dl Platelet Count 153 130-400 K/uL Mean Platelet Volume 12.1 7.4-10.4 fL Neutrophils (%) (Auto) 87.2 % Lymphocytes (%) (Auto) 6.5 % Monocytes (%) (Auto) 5.3 % Eosinophils (%) (Auto) 0.2 % Basophils (%) (Auto) 0.1 % Neutrophils # (Auto) 24.76 1.4-6.5 K/uL Lymphocytes # (Auto) 1.84 1.2-3.4 K/uL Monocytes # (Auto) 1.49 0.11-0.59 K/uL Eosinophils # (Auto) 0.05 0-0.5 K/uL Basophils # (Auto) 0.03 0-0.2 K/uL RDW Standard Deviation 61.4 36.4-46.3 fL RDW Coefficient of Variation 16.1 11.5-14.5 % Immature Granulocyte % (Auto) 0.7 % Immature Granulocyte # (Auto) 0.21 0.00-0.02 K/uL Prothrombin Time 10.9 9.0-12.0 SECONDS Prothromb Time International Ratio 1.0 0.9-1.1 Activated Partial Thromboplast Time 24.8 21.0-31.0 SECONDS Partial Thromboplastin Ratio 1.0 Sodium Level 141 136-145 mmol/L Potassium Level 3.7 3.5-5.1 mmol/L Chloride Level 110 98-107 mmol/L Carbon Dioxide Level 26 21-32 mmol/L Anion Gap 5.0 3-11 mmol/L Blood Urea Nitrogen 22 7-18 mg/dl Creatinine 1.06 0.60-1.20 mg/dl Est Creatinine Clear Calc Drug Dose 50.3 ml/min Estimated GFR () 55.1 Estimated GFR (Non- 47.5 BUN/Creatinine Ratio 20.8 10-20 Random Glucose 126 70-99 mg/dl Calcium Level 9.7 8.5-10.1 mg/dl Total Bilirubin 0.9 0.2-1 mg/dl Aspartate Amino Transf (AST/SGOT) 19 15-37 U/L Alanine Aminotransferase (ALT/SGPT) 23 12-78 U/L Alkaline Phosphatase 94 45-117 U/L Troponin I < 0.015 0-0.045 ng/ml Pro-B-Type Natriuretic Peptide 143 0-1800 pg/ml Total Protein 6.4 6.4-8.2 gm/dl Albumin 3.6 3.4-5.0 gm/dl Globulin 2.8 2.5-4.0 gm/dl Albumin/Globulin Ratio 1.3 0.9-2 Urine Color YELLOW Urine Appearance CLEAR CLEAR Urine pH 7.0 4.5-7.5 Urine Specific [place] 1.011 1.000-1.030 Urine Protein NEG NEG Urine Glucose (UA) NEG NEG Urine Ketones NEG NEG Urine Occult Blood NEG NEG Urine Nitrite NEG NEG Urine Bilirubin NEG NEG Urine Urobilinogen NEG NEG Urine Leukocyte Esterase NEG NEG Urine WBC (Auto) 1-5 0-5 /hpf Urine RBC (Auto) 0-4 0-4 /hpf Urine Hyaline Casts (Auto) 0 0-5 /lpf Urine Epithelial Cells (Auto) 0-5 0-5 /lpf Urine Bacteria (Auto) NEG NEG Bedside Lactic Acid Venous 1.90 0.90-1.70 mmol/L Microbiology Results 03/16/18 Blood Culture, Received Pending 03/16/18 Blood Culture, Received Pending other (LL infiltrate ( radiologist report pending)) Impression Assessment and Plan 87 yo F with Urinary incontinence, HTN, CKD III, DCIS (ductal carcinoma in situ) ,hx/o Lung AdenoCarcinoma s/p resection, Pulmonary nodules, chronic resp failure , presenting with progressive generalized weakness Sepsis - tachycardic on arrival, thought afebrile, + leukocytosis, in setting of known UTI, suspected Pneumonia - currently hemodynamically stable s/p IV fluids - given Zosyn in the ED - Start Vanc /Zosyn pending cx's Suspected Pneumonia - + cough, SOB, +leukocytosis LL infiltrate per preliminary read prior to radiologist report - Saturating 86 % on arrival , improved with 2 L - Given recent admission (01/25) for pneumonia, coverage for HCAP indicated - Start Vanc/Zosyn - F/u sputum cx, blood cx - Repeat CBC's daily -Guaifenesin Chronic resp failure, ?Asthma -c/w O2 2L qHS - continue home inhalers -Per Pulmonary const on recent admission, Asthma unlikely -attributed to multiple factors including poorly controlled chris vs obesity hypoventilation or kyphosis UTI -reports urinary urgency/ frequency - recent admission 03/04, Cx positive for E.Coli resistant to Bactrim, Cipro, Levaquin, sensitive to Zosyn - started macrobid day before arrival, does not recall being prescribed keflex on ED discharge - Zosyn as above - UA on arrival unremarkable, await cx results Spasmodic dysphonia -chronic, stable History of Pulmonary nodules, Hx of Lung adenocarcinoma - Pulmonary decided against bronchoscopy on previous admission for Pneumonia - plan for possible EBUS was made - Consider Pulm consult during hospital stay CKD -stable at baseline -f/u repeat bmp HTN - stable - c/w Losartan H/o PE/ DVT - Continue Xarelto 15 mg daily H/o DCIS - s/p R mastectomy - stable, in remission GERD - PPI H/o Gout -continue Allopurinol DVT PPX - already on Xarelto Code Status -Level V, DO NOT RESUSCITATE Attending addendum: I have physically seen this patient, have supervised the medical residents activities, and agree with the H&P unless as otherwise noted. Assessment and Plan: Sepsis/acute on chronic respiratory failure with hypoxia/pneumonia-- Vancomycin IV per pharmacokinetic monitoring Zosyn 3.375 mg IV every 8 hours Duonebs every 4 hours while awake and every 2 hours when necessary. Solu-Medrol 40 mg IV every 8 hours Guaifenesin extended release 600 mg by mouth twice a day Nasal cannula oxygen titrate to keep pulse ox greater than or equal to 92% Sputum Gram stain and culture Recent E. coli UTI-- Sensitive to Zosyn. Follow urine culture sensitivity. PE/DVT history-- Continue Xarelto 15 mg daily. Other treatments as above. Advanced Directives Existing Advance Directive: Yes Resuscitation Status VTE Prophylaxis Will order VTE Prophylaxis: Yes Social Service Consult Lives in Personal Care Note Total Time: Critical Care 30 - 74 minutes Resident Tracking Resident Involvement: Resident Care Provided Care Provided: Adult Hospital Medicine
[2018-03-16] MEDS ORDERED: SODIUM CHLORIDE 0.9% 1000ML 1,000 ML IV SCH ×2 (03:29→04:30)
[2018-03-16] MEDS ORDERED: VANCOMYCIN IV 1,000 MG in SODIUM CHLORIDE 0.9% 250ML 250 ML IV STA (03:29)
[2018-03-16] MEDS ORDERED: PIPERACILL/TAZOBAC CONSULT ACTIVE PRN ×2 (03:30→04:15)
[2018-03-16] MEDS ORDERED: ONDANSETRON INJ 2 MG/ML 2 ML VIAL IV PRN ×2 (03:30→04:30)
[2018-03-16] MEDS ORDERED: NITROGLYCERIN 0.4 MG SL PER TAB CHARGE SL PRN ×2 (03:30→04:30)
[2018-03-16] MEDS ORDERED: MAGNESIUM HYDROXIDE SUSP 30 ML UDC PO PRN ×2 (03:30→04:30)
[2018-03-16] MEDS ORDERED: ONDANSETRON 4 MG TAB PO PRN ×2 (03:30→05:00)
[2018-03-16] MEDS ORDERED: OXYCODONE HCL IR 5 MG TAB (IMMEDIATE RELEASE) PO PRN (03:30)
[2018-03-16] MEDS ORDERED: ACETAMINOPHEN 325 MG TAB PO PRN ×2 (03:30→04:30)
[2018-03-16] MEDS ORDERED: GUAIFENESIN 200 MG TAB PO SCH (03:30)
[2018-03-16] MEDS ORDERED: ALUMINUM/MAGNESIUM/SIMETH (MAALOX MAX) 30 ML UDC PO PRN ×2 (03:30→04:30)
[2018-03-16] MEDS ORDERED: VANCOMYCIN CONSULT ACTIVE PRN ×3 (03:30→04:15)
[2018-03-16] MEDS ORDERED: SODIUM CHLORIDE 0.9% 1000ML 1,000 ML IV STA (03:47)
[2018-03-16] MEDS ORDERED: VANCOMYCIN IV 2,500 MG in SODIUM CHLORIDE 0.9% 500ML 500 ML IV STA (03:53)
[2018-03-16] MEDS ORDERED: PIPERACILL/TAZOBAC IV 3.375 GM in DEXTROSE 5% 100ML 100 ML IV SCH (06:00)
[2018-03-16] MEDS: GUAIFENESIN 200 MG TAB PO SCH ×5 (06:32→20:38)
--- NOTE | 2018-03-16 06:37 | DIAGNOSTIC IMAGING REPORT ---
CHEST ONE VIEW PORTABLE CLINICAL HISTORY: Sepsis dyspnea COMPARISON STUDY: 03/04/2018 FINDINGS: Somewhat progressive interstitial and bronchovascular changes throughout both hemithoraces. Superimposed focal infiltrative process left base. Mild stable cardiomegaly. IMPRESSION: 1. Developing components of mild congestive failure. 2. Superimposed infiltrate left base. The above report was generated using voice recognition software. It may contain grammatical, syntax or spelling errors. Electronically signed by: Wm Browne M.D. 03/16/2018 6:36 AM Dictated Date/Time: 03/16/2018 6:35 AM
[2018-03-16] MEDS: ALBUT/IPRATROP 3MG/0.5MG NEB 3 ML VIAL INH SCH ×4 (07:24→20:00)
[2018-03-16] MEDS ORDERED: ALBUT/IPRATROP 3MG/0.5MG NEB 3 ML VIAL INH SCH (08:00)
[2018-03-16] MEDS: LOSARTAN POTASSIUM 50 MG TAB PO SCH (08:01)
[2018-03-16] MEDS: FLUTICASONE/SALMETEROL (ADVAIR) 500/50 INH 14 PUFF INH SCH ×2 (08:01→20:37)
[2018-03-16] MEDS: ALLOPURINOL 100 MG TAB PO SCH (08:02)
[2018-03-16] MEDS: POLYETHYLENE (MIRALAX) 17 GM PACK PO SCH (08:02)
[2018-03-16] MEDS: RIVAROXABAN TAB 15 MG TAB PO SCH (08:02)
[2018-03-16] MEDS: CEROVITE ADV FORMULA TAB PO SCH (08:02)
[2018-03-16] MEDS: PIPERACILL/TAZOBAC IV 4.5 GM in NSS 100 ML IV SCH ×3 (08:06→23:43)
[2018-03-16] MEDS: FLUTICASONE PROPIONATE NA SPR 16 GM BTL NAE SCH (08:06)
[2018-03-16] MEDS ORDERED: CEROVITE ADV FORMULA TAB PO SCH (09:00)
[2018-03-16] MEDS ORDERED: LOSARTAN POTASSIUM 50 MG TAB PO SCH (09:00)
[2018-03-16] MEDS ORDERED: FLUTICASONE/SALMETEROL (ADVAIR) 500/50 INH 14 PUFF INH SCH (09:00)
[2018-03-16] MEDS ORDERED: FLUTICASONE PROPIONATE NA SPR 16 GM BTL NAE SCH (09:00)
[2018-03-16] MEDS ORDERED: ALLOPURINOL 100 MG TAB PO SCH (09:00)
[2018-03-16] MEDS ORDERED: VANCOMYCIN IV 1,000 MG in SODIUM CHLORIDE 0.9% 250ML 250 ML IV SCH (09:00)
[2018-03-16] MEDS ORDERED: POLYETHYLENE (MIRALAX) 17 GM PACK PO SCH (09:00)
[2018-03-16] MEDS ORDERED: RIVAROXABAN TAB 15 MG TAB PO SCH (09:00)
[2018-03-16] MEDS: ONDANSETRON INJ 2 MG/ML 2 ML VIAL IV PRN (09:32)
[2018-03-16] MEDS: OXYCODONE HCL IR 5 MG TAB (IMMEDIATE RELEASE) PO PRN ×2 (09:32→16:33)
[2018-03-16] MEDS ORDERED: ONDANSETRON INJ 6 MG in DEXTROSE 5% 50ML 50 ML IV PRN (09:45)
--- NOTE | 2018-03-16 12:47 | Pharmacy Progress Note ---
Pharmacy Abx Initial Consult Date of Service March 16, 2018. Pharmacy Dosing Scope Date of Consult: 03/16/18 Consultation requested by: Dr. Hyatt Pharmacy is consulted to initiate Vancomycin/Zosyn IV dosing therapy, order appropriate labs and adjust drug dose/frequency. Subjective The patient is a 87 year old female admitted on March 16, 2018 at 03:48 admitted for susp. pneumonia/UTI/? sepsis Objective Height (Feet): 5 Height (Inches): 6.00 Weight (Kilograms): 118.500 (BMI 42.2) Vital Signs (Past 12Hrs) Vital Signs Past 12 Hours Date Time Temp Pulse Resp B/P (MAP) Pulse Ox O2 Delivery O2 Flow Rate FiO2 03/16/18 12:00 Nasal Cannula 4.0 Humidified Oxygen 03/16/18 11:26 75 16 96 Nasal Cannula 3.0 03/16/18 11:24 36.3 77 20 104/64 (77) 92 Nasal Cannula 3.0 03/16/18 08:00 Nasal Cannula 4.0 Humidified Oxygen 03/16/18 07:29 36.5 81 20 124/76 (92) 95 Nasal Cannula 4.0 Humidified Oxygen 03/16/18 07:24 85 16 97 Nasal Cannula 4.0 03/16/18 04:45 36.8 85 28 119/74 92 Nasal Cannula 4.0 03/16/18 04:30 86 17 117/61 93 03/16/18 04:00 93 17 125/71 92 Nasal Cannula 4.0 03/16/18 03:02 88 17 122/68 94 Nasal Cannula 4.0 Humidified Oxygen 03/16/18 02:32 88 94 Nasal Cannula 4.0 03/16/18 02:00 95 20 128/56 95 Nasal Cannula 4.0 03/16/18 01:32 96 03/16/18 01:22 92 Nasal Cannula 4.0 03/16/18 01:22 92 Nasal Cannula 4.0 03/16/18 01:16 36.7 129 20 144/72 86 Room Air 03/16/18 00:50 129 03/16/18 00:43 144/72 Lab Results (24Hrs) Laboratory Tests (24 Hours) Test 03/16/18 01:54 03/16/18 05:51 White Blood Count 28.38 K/uL (4.8-10.8) H Red Blood Count 3.89 M/uL (4.2-5.4) L Hemoglobin 13.6 g/dL (12.0-16.0) Hematocrit 40.6 % (37-47) Mean Corpuscular Volume 104.4 fL (80-100) H Mean Corpuscular Hemoglobin 35.0 pg (25-34) H Mean Corpuscular Hemoglobin Concent 33.5 g/dl (32-36) Platelet Count 153 K/uL (130-400) Mean Platelet Volume 12.1 fL (7.4-10.4) H Neutrophils (%) (Auto) 87.2 % Lymphocytes (%) (Auto) 6.5 % Monocytes (%) (Auto) 5.3 % Eosinophils (%) (Auto) 0.2 % Basophils (%) (Auto) 0.1 % Neutrophils # (Auto) 24.76 K/uL (1.4-6.5) H Lymphocytes # (Auto) 1.84 K/uL (1.2-3.4) Monocytes # (Auto) 1.49 K/uL (0.11-0.59) H Eosinophils # (Auto) 0.05 K/uL (0-0.5) Basophils # (Auto) 0.03 K/uL (0-0.2) Procalcitonin 2.70 ng/ml (0-0.5) H Micro Results Date/Time Source Procedure Growth Status 03/16/18 01:54 Blood Blood Culture Pending Received 03/16/18 01:54 Blood Blood Culture Pending Received Risk Factors for Resistance * Hospitalization for 48 hours or more within the past 90 days * Antimicrobial use within the last 90 days (Macrobid 100mg BID started 03/15/18 for UTI) * CKD Stage III Assessment & Plan Assessment 87 year old female admitted for Susp. pneumonia/UTI/sepsis. Perintent PMI: CKD III, hx Lung AdenoCarcinoma/chronic resp. failure Plan Vancomycin IV * Est. PK parameters: Vd ~0.54; Amaury ~ 0.046 hr-1; T1/2 ~15 hrs; CrCl 50.3 * Loading dose: 2500 mg (~20 mg/kg) * Maintenance dose: 1250 mg IV (~10 mg/kg) every 18 hours * Goal trough level for indication : 15 to 20 mcg/mL * Trough level ordered for 03/18/18 @ 0730 * A less than traditional dose and/or extended dosing interval has/have been selected due to likelihood of drug accumulation in obese patient/patient with h/ o CKD. Piperacillin/tazobactam * 4.5 g bolus administered over 30 minutes, then 4.5 g IV extended infusion every 8 hours for CrCl greater than 20 mL/min OR every 12 hours for CrCl 20 mL/ min or less and dialysis. * Aggressive dosing selected due to critically ill status/BMI 35 or more/ history of cystic fibrosis. Pharmacy will continue to follow and will adjust dose/frequency as necessary. Thank you.
--- NOTE | 2018-03-16 18:02 | Family Medicine Progress Note ---
Progress Note Date of Service March 16, 2018. Subjective Pt evaluation today including: conversation w/ patient, physical exam, chart review, lab review Patient is feeling nauseous and weak this morning. Denies trouble breathing at this time. Also endorses leg pain. Constitutional: + fever, No chills, No sweats Respiratory: + cough, + sputum, + shortness of breath, No wheezing Cardiovascular: No chest pain, No edema, No palpitations Abdomen: + nausea, No pain, No vomiting, No diarrhea Female : + dysuria, + urinary frequency Medications Current Inpatient Medications Medications (Trade) Dose Ordered Sig/Shilpa Route Start Time Stop Time Status Last Admin Dose Admin Albuterol/ Ipratropium (Duoneb) 3 ml QIDR INH 03/16/18 08:00 04/15/18 07:59 03/16/18 15:18 3 ML Salmeterol Xinafoate/ Fluticasone (Advair Diskus 500/50 Inh) 1 puff BID INH 03/16/18 09:00 04/15/18 08:59 03/16/18 08:01 1 PUFF Fluticasone Propionate (Flonase Nasal [place]) 2 sprays DAILY TEOFILO 03/16/18 09:00 04/15/18 08:59 03/16/18 08:06 2 SPRAYS Miscellaneous Information (Consult) 1 ea UD PRN N/A 03/16/18 04:15 04/15/18 04:14 Miscellaneous Information (Consult) 1 ea UD PRN N/A 03/16/18 04:15 04/15/18 04:14 Acetaminophen (Tylenol Tab) 650 mg Q4H PRN PO 03/16/18 04:30 04/15/18 04:29 Al Hydrox/Mg Hydrox/Simethicone (Maalox Max Susp) 15 ml Q4H PRN PO 03/16/18 04:30 04/15/18 04:29 Magnesium Hydroxide (Milk Of Magnesia Susp) 30 ml Q12H PRN PO 03/16/18 04:30 04/15/18 04:29 Nitroglycerin (Nitrostat Tab) 0.4 mg UD PRN SL 03/16/18 04:30 04/15/18 04:29 Allopurinol (Zyloprim Tab) 100 mg QAM PO 03/16/18 09:00 04/15/18 08:59 03/16/18 08:02 100 MG Duloxetine HCl (Cymbalta Cap) 30 mg HS PO 03/16/18 21:00 04/15/18 20:59 Gabapentin (Neurontin Cap) 300 mg HS PO 03/16/18 21:00 04/15/18 20:59 Losartan Potassium (coZAAR TAB) 50 mg DAILY PO 03/16/18 09:00 04/15/18 08:59 03/16/18 08:01 50 MG Guaifenesin (Organidin Nr Tab) 200 mg Q4H PO 03/16/18 06:00 04/15/18 05:59 03/16/18 17:37 200 MG Ondansetron HCl (Zofran Tab) 4 mg Q6H PRN PO 03/16/18 05:00 04/15/18 04:59 Oxycodone HCl (Roxicodone Immediate Rel Tab) 5 mg Q6H PRN PO 03/16/18 05:00 03/30/18 04:59 03/16/18 16:33 5 MG Ropinirole HCl (Requip Tab) 1 mg HS PO 03/16/18 21:00 04/15/18 20:59 Ondansetron HCl (Zofran Inj) 4 mg Q6H PRN IV 03/16/18 05:00 04/15/18 04:59 03/16/18 09:32 4 MG Montelukast Sodium (Singulair Tab) 10 mg HS PO 03/16/18 21:00 04/15/18 20:59 Multivitamins/ Minerals (Multivitamin W/ Minerals Tab) 1 tab QAM PO 03/16/18 09:00 04/15/18 08:59 03/16/18 08:02 1 TAB Polyethylene (Miralax Powder Packet) 17 gm QAM PO 03/16/18 09:00 04/15/18 08:59 03/16/18 08:02 17 GM Rivaroxaban (Xarelto Tab) 15 mg QAM PO 03/16/18 09:00 04/15/18 08:59 03/16/18 08:02 15 MG Piperacillin Sod/ Tazobactam Sod 4.5 gm/Sodium Chloride 120 ml @ 30 mls/hr Q8H IV 03/16/18 08:00 03/23/18 07:59 03/16/18 16:16 30 MLS/HR Vancomycin HCl 1250 mg/Sodium Chloride 275 ml @ 125 mls/hr Q18H IV 03/16/18 20:00 03/23/18 01:59 Objective Vital Signs Date Time Temp Pulse Resp B/P (MAP) Pulse Ox O2 Delivery O2 Flow Rate FiO2 03/16/18 16:00 Nasal Cannula 4.0 03/16/18 15:18 77 16 94 Nasal Cannula 3.0 03/16/18 15:18 36.4 92 18 139/66 (90) 94 Nasal Cannula 4.0 03/16/18 12:00 Nasal Cannula 4.0 Humidified Oxygen 03/16/18 11:26 75 16 96 Nasal Cannula 3.0 03/16/18 11:24 36.3 77 20 104/64 (77) 92 Nasal Cannula 3.0 03/16/18 08:00 Nasal Cannula 4.0 Humidified Oxygen 03/16/18 07:29 36.5 81 20 124/76 (92) 95 Nasal Cannula 4.0 Humidified Oxygen 03/16/18 07:24 85 16 97 Nasal Cannula 4.0 03/16/18 04:45 36.8 85 28 119/74 92 Nasal Cannula 4.0 03/16/18 04:30 86 17 117/61 93 03/16/18 04:00 93 17 125/71 92 Nasal Cannula 4.0 03/16/18 03:02 88 17 122/68 94 Nasal Cannula 4.0 Humidified Oxygen 03/16/18 02:32 88 94 Nasal Cannula 4.0 03/16/18 02:00 95 20 128/56 95 Nasal Cannula 4.0 03/16/18 01:32 96 03/16/18 01:22 92 Nasal Cannula 4.0 03/16/18 01:22 92 Nasal Cannula 4.0 03/16/18 01:16 36.7 129 20 144/72 86 Room Air 03/16/18 00:50 129 03/16/18 00:43 144/72 Physical Exam General Appearance: WD/WN, no apparent distress Neck: supple, no adenopathy, thyroid normal, no JVD Respiratory/Chest: chest non-tender, no respiratory distress, no accessory muscle use, + decreased breath sounds, + crackles (bilateral bases ) Cardiovascular: regular rate, rhythm, no murmur Abdomen: normal bowel sounds, non tender, soft, + distended Neurologic/Psychiatric: alert, normal mood/affect, oriented x 3 Skin: normal color, warm/dry, no rash Laboratory Results 03/16/18 01:54 Red Blood Count 3.89, Mean Corpuscular Volume 104.4, Mean Corpuscular Hemoglobin 35.0, Mean Corpuscular Hemoglobin Concent 33.5, Mean Platelet Volume 12.1, Neutrophils (%) (Auto) 87.2, Lymphocytes (%) (Auto) 6.5, Monocytes (%) ( Auto) 5.3, Eosinophils (%) (Auto) 0.2, Basophils (%) (Auto) 0.1, Neutrophils # ( Auto) 24.76, Lymphocytes # (Auto) 1.84, Monocytes # (Auto) 1.49, Eosinophils # ( Auto) 0.05, Basophils # (Auto) 0.03 03/16/18 01:54 Test 03/16/18 01:54 03/16/18 02:20 03/16/18 02:54 03/16/18 05:51 White Blood Count 28.38 K/uL (4.8-10.8) Red Blood Count 3.89 M/uL (4.2-5.4) Hemoglobin 13.6 g/dL (12.0-16.0) Hematocrit 40.6 % (37-47) Mean Corpuscular Volume 104.4 fL (80-100) Mean Corpuscular Hemoglobin 35.0 pg (25-34) Mean Corpuscular Hemoglobin Concent 33.5 g/dl (32-36) Platelet Count 153 K/uL (130-400) Mean Platelet Volume 12.1 fL (7.4-10.4) Neutrophils (%) (Auto) 87.2 % Lymphocytes (%) (Auto) 6.5 % Monocytes (%) (Auto) 5.3 % Eosinophils (%) (Auto) 0.2 % Basophils (%) (Auto) 0.1 % Neutrophils # (Auto) 24.76 K/uL (1.4-6.5) Lymphocytes # (Auto) 1.84 K/uL (1.2-3.4) Monocytes # (Auto) 1.49 K/uL (0.11-0.59) Eosinophils # (Auto) 0.05 K/uL (0-0.5) Basophils # (Auto) 0.03 K/uL (0-0.2) RDW Standard Deviation 61.4 fL (36.4-46.3) RDW Coefficient of Variation 16.1 % (11.5-14.5) Immature Granulocyte % (Auto) 0.7 % Immature Granulocyte # (Auto) 0.21 K/uL (0.00-0.02) Prothrombin Time 10.9 SECONDS (9.0-12.0) Prothromb Time International Ratio 1.0 (0.9-1.1) Activated Partial Thromboplast Time 24.8 SECONDS (21.0-31.0) Partial Thromboplastin Ratio 1.0 Anion Gap 5.0 mmol/L (3-11) Est Creatinine Clear Calc Drug Dose 50.3 ml/min Estimated GFR () 55.1 Estimated GFR (Non- 47.5 BUN/Creatinine Ratio 20.8 (10-20) Calcium Level 9.7 mg/dl (8.5-10.1) Total Bilirubin 0.9 mg/dl (0.2-1) Aspartate Amino Transf (AST/SGOT) 19 U/L (15-37) Alanine Aminotransferase (ALT/SGPT) 23 U/L (12-78) Alkaline Phosphatase 94 U/L (45-117) Troponin I < 0.015 ng/ml (0-0.045) Pro-B-Type Natriuretic Peptide 143 pg/ml (0-1800) Total Protein 6.4 gm/dl (6.4-8.2) Albumin 3.6 gm/dl (3.4-5.0) Globulin 2.8 gm/dl (2.5-4.0) Albumin/Globulin Ratio 1.3 (0.9-2) Urine Color YELLOW Urine Appearance CLEAR (CLEAR) Urine pH 7.0 (4.5-7.5) Urine Specific [place] 1.011 (1.000-1.030) Urine Protein NEG (NEG) Urine Glucose (UA) NEG (NEG) Urine Ketones NEG (NEG) Urine Occult Blood NEG (NEG) Urine Nitrite NEG (NEG) Urine Bilirubin NEG (NEG) Urine Urobilinogen NEG (NEG) Urine Leukocyte Esterase NEG (NEG) Urine WBC (Auto) 1-5 /hpf (0-5) Urine RBC (Auto) 0-4 /hpf (0-4) Urine Hyaline Casts (Auto) 0 /lpf (0-5) Urine Epithelial Cells (Auto) 0-5 /lpf (0-5) Urine Bacteria (Auto) NEG (NEG) Bedside Lactic Acid Venous 1.90 mmol/L (0.90-1.70) Procalcitonin 2.70 ng/ml (0-0.5) Assessment and Plan 87 yo female h/o HTN, CKD3, breast and lung cancer presented with generalized weakness, cough and urinary sx. Treated for pneumonia and UTI. Assessment; Found to have infiltrates on CXR. Patient procalcitonin 2.7 and WBC of 28.38. Patient was found to have crackles in bilateral bases and decreased air movement bilaterally. Plan; Treating patient with IV Vanc/Zosyn for suspected HCAP. Dispo; Continue IV abx course, ordered PT/OT Suspected HCAP - Cont. 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 Discussed with Dr. Meza and agree with findings and plan as documented in the note. Any exceptions or clarifications are listed here: None Documented By: Ivan Marcus feeling about the same breathing reid; legs really restless notes this happens at home walks the halls and then takes requip and sometimes helps some vitals noted nad except for very uncomfortabl ewith legs. venous/lymphatic drainage technique done b/l w some relief, lungs quiet throughout HCAP - zosyn, vanco, supportive care restless legs - OMT as above, requip otherwise as above
[2018-03-16] MEDS: VANCOMYCIN IV 1,250 MG in SODIUM CHLORIDE 0.9% 250ML 250 ML IV SCH (20:33)
[2018-03-16] MEDS: MONTELUKAST SOD 10 MG TAB PO SCH (20:38)
[2018-03-16] MEDS: ROPINIROLE HCL 1 MG TAB PO SCH (20:38)
[2018-03-16] MEDS: GABAPENTIN 300 MG CAP PO SCH (20:39)
[2018-03-16] MEDS: DULOXETINE (CYMBALTA) 30 MG CAP PO SCH (20:39)
[2018-03-16] MEDS ORDERED: MONTELUKAST SOD 10 MG TAB PO SCH (21:00)
[2018-03-16] MEDS ORDERED: DULOXETINE (CYMBALTA) 30 MG CAP PO SCH (21:00)
[2018-03-16] MEDS ORDERED: GABAPENTIN 300 MG CAP PO SCH (21:00)
[2018-03-16] MEDS ORDERED: ROPINIROLE HCL 1 MG TAB PO SCH (21:00)
[2018-03-17] VITALS (11 sets, daily range): BP systolic 96–169; BP diastolic 59–83; PULSE 63–88; TEMP 36.5–36.8; O2SAT 88–100
[2018-03-17] MEDS: GUAIFENESIN 200 MG TAB PO SCH ×6 (02:00→20:10)
[2018-03-17 05:23] LABS: CALCIUM 8.9 mg/dl (8.5-10.1); CREATININE 1.21 mg/dl (0.60-1.20); POTASSIUM 4.1 mmol/L (3.5-5.1)
[2018-03-17 05:26] LABS: BASO % 0.1 %; BASO ABS # 0.01 K/uL (0-0.2); EOS % 1.6 %; EOS ABS # 0.19 K/uL (0-0.5); HEMATOCRIT 33.3 % (37-47); IG# 0.16 K/uL (0.00-0.02); LYMPH ABS # 1.43 K/uL (1.2-3.4); MEAN CELL VOLUME 105.4 fL (80-100); MEAN CORPUSCULAR HEMOGLOBIN 34.8 pg (25-34); MEAN PLATELET VOLUME 12.1 fL (7.4-10.4); MONO ABS # 1.55 K/uL (0.11-0.59); NEUT ABS # 8.57 K/uL (1.4-6.5); PLATELET COUNT 131 K/uL (130-400); RED CELL DISTRIBUTION WIDTH CV 16.5 % (11.5-14.5); RED CELL DISTRIBUTION WIDTH SD 63.3 fL (36.4-46.3); WHITE BLOOD COUNT 11.91 K/uL (4.8-10.8)
--- NOTE | 2018-03-17 06:46 | Family Medicine Progress Note ---
Progress Note Date of Service March 17, 2018. Subjective Pt evaluation today including: conversation w/ patient [place] somewhat better today - when asked in which ways, she just says overall and can't pinpoint exact symptoms. Reports she has oxygen at home which she wears at night and when walking Feels short of breath when speaking at times Denies any pain. Did not mention leg pain to me. Constitutional: No fever Eyes: No worsening of vision Respiratory: + dyspnea on exertion Cardiovascular: No chest pain All Other Systems: Reviewed and Negative Medications Current Inpatient Medications Medications (Trade) Dose Ordered Sig/Shilpa Route Start Time Stop Time Status Last Admin Dose Admin Albuterol/ Ipratropium (Duoneb) 3 ml QIDR INH 03/16/18 08:00 04/15/18 07:59 03/17/18 07:13 3 ML Salmeterol Xinafoate/ Fluticasone (Advair Diskus 500/50 Inh) 1 puff BID INH 03/16/18 09:00 04/15/18 08:59 03/17/18 08:11 1 PUFF Fluticasone Propionate (Flonase Nasal [place]) 2 sprays DAILY TEOFILO 03/16/18 09:00 04/15/18 08:59 03/17/18 08:11 2 SPRAYS Miscellaneous Information (Consult) 1 ea UD PRN N/A 03/16/18 04:15 04/15/18 04:14 Miscellaneous Information (Consult) 1 ea UD PRN N/A 03/16/18 04:15 04/15/18 04:14 Acetaminophen (Tylenol Tab) 650 mg Q4H PRN PO 03/16/18 04:30 04/15/18 04:29 Al Hydrox/Mg Hydrox/Simethicone (Maalox Max Susp) 15 ml Q4H PRN PO 03/16/18 04:30 04/15/18 04:29 Magnesium Hydroxide (Milk Of Magnesia Susp) 30 ml Q12H PRN PO 03/16/18 04:30 04/15/18 04:29 Nitroglycerin (Nitrostat Tab) 0.4 mg UD PRN SL 03/16/18 04:30 04/15/18 04:29 Allopurinol (Zyloprim Tab) 100 mg QAM PO 03/16/18 09:00 04/15/18 08:59 03/17/18 08:13 100 MG Duloxetine HCl (Cymbalta Cap) 30 mg HS PO 03/16/18 21:00 04/15/18 20:59 03/16/18 20:39 30 MG Gabapentin (Neurontin Cap) 300 mg HS PO 03/16/18 21:00 04/15/18 20:59 03/16/18 20:39 300 MG Losartan Potassium (coZAAR TAB) 50 mg DAILY PO 03/16/18 09:00 04/15/18 08:59 03/17/18 08:12 50 MG Guaifenesin (Organidin Nr Tab) 200 mg Q4H PO 03/16/18 06:00 04/15/18 05:59 03/17/18 08:13 200 MG Ondansetron HCl (Zofran Tab) 4 mg Q6H PRN PO 03/16/18 05:00 04/15/18 04:59 Oxycodone HCl (Roxicodone Immediate Rel Tab) 5 mg Q6H PRN PO 03/16/18 05:00 03/30/18 04:59 03/16/18 16:33 5 MG Ropinirole HCl (Requip Tab) 1 mg HS PO 03/16/18 21:00 04/15/18 20:59 03/16/18 20:38 1 MG Ondansetron HCl (Zofran Inj) 4 mg Q6H PRN IV 03/16/18 05:00 04/15/18 04:59 03/16/18 09:32 4 MG Montelukast Sodium (Singulair Tab) 10 mg HS PO 03/16/18 21:00 04/15/18 20:59 03/16/18 20:38 10 MG Multivitamins/ Minerals (Multivitamin W/ Minerals Tab) 1 tab QAM PO 03/16/18 09:00 04/15/18 08:59 03/17/18 08:13 1 TAB Polyethylene (Miralax Powder Packet) 17 gm QAM PO 03/16/18 09:00 04/15/18 08:59 03/17/18 08:11 17 GM Rivaroxaban (Xarelto Tab) 15 mg QAM PO 03/16/18 09:00 04/15/18 08:59 03/17/18 08:13 15 MG Piperacillin Sod/ Tazobactam Sod 4.5 gm/Sodium Chloride 120 ml @ 30 mls/hr Q8H IV 03/16/18 08:00 03/23/18 07:59 03/17/18 08:10 30 MLS/HR Vancomycin HCl 1250 mg/Sodium Chloride 275 ml @ 125 mls/hr Q18H IV 03/16/18 20:00 03/23/18 01:59 Future Hold 03/16/18 20:33 125 MLS/HR Objective Vital Signs Date Time Temp Pulse Resp B/P (MAP) Pulse Ox O2 Delivery O2 Flow Rate FiO2 03/17/18 08:00 Nasal Cannula 4.0 Humidified Oxygen 03/17/18 07:15 36.8 71 18 131/66 (87) 99 Room Air 03/17/18 07:13 84 16 88 Room Air 03/17/18 04:24 36.7 63 18 133/59 (83) 92 CPAP 03/17/18 04:00 CPAP 4.0 03/17/18 00:04 36.8 69 18 96/60 (72) 92 CPAP 03/16/18 23:59 CPAP 4.0 03/16/18 21:05 86 96 4.0 03/16/18 20:00 Nasal Cannula 4.0 03/16/18 20:00 79 16 93 Nasal Cannula 4.0 03/16/18 19:44 36.5 87 22 99/54 (69) 94 Nasal Cannula 4.0 03/16/18 16:00 Nasal Cannula 4.0 03/16/18 15:18 77 16 94 Nasal Cannula 3.0 03/16/18 15:18 36.4 92 18 139/66 (90) 94 Nasal Cannula 4.0 03/16/18 12:00 Nasal Cannula 4.0 Humidified Oxygen 03/16/18 11:26 75 16 96 Nasal Cannula 3.0 03/16/18 11:24 36.3 77 20 104/64 (77) 92 Nasal Cannula 3.0 Physical Exam General Appearance: WD/WN, no apparent distress, + obese Eyes: normal inspection, PERRL ENT: hearing grossly normal Neck: supple, no JVD Respiratory/Chest: lungs clear, normal breath sounds, no respiratory distress Cardiovascular: regular rate, rhythm, no murmur Abdomen: normal bowel sounds, non tender, soft Extremities: no pedal edema Neurologic/Psychiatric: alert, normal mood/affect, oriented x 3 Skin: no rash Laboratory Results Last 24 Hours Test 03/17/18 04:44 White Blood Count 11.91 K/uL Red Blood Count 3.16 M/uL Hemoglobin 11.0 g/dL Hematocrit 33.3 % Mean Corpuscular Volume 105.4 fL Mean Corpuscular Hemoglobin 34.8 pg Mean Corpuscular Hemoglobin Concent 33.0 g/dl Platelet Count 131 K/uL Mean Platelet Volume 12.1 fL Neutrophils (%) (Auto) 72.0 % Lymphocytes (%) (Auto) 12.0 % Monocytes (%) (Auto) 13.0 % Eosinophils (%) (Auto) 1.6 % Basophils (%) (Auto) 0.1 % Neutrophils # (Auto) 8.57 K/uL Lymphocytes # (Auto) 1.43 K/uL Monocytes # (Auto) 1.55 K/uL Eosinophils # (Auto) 0.19 K/uL Basophils # (Auto) 0.01 K/uL RDW Standard Deviation 63.3 fL RDW Coefficient of Variation 16.5 % Immature Granulocyte % (Auto) 1.3 % Immature Granulocyte # (Auto) 0.16 K/uL Sodium Level 140 mmol/L Potassium Level 4.1 mmol/L Chloride Level 111 mmol/L Carbon Dioxide Level 27 mmol/L Anion Gap 2.0 mmol/L Blood Urea Nitrogen 25 mg/dl Creatinine 1.21 mg/dl Est Creatinine Clear Calc Drug Dose 43.7 ml/min Estimated GFR () 46.9 Estimated GFR (Non- 40.5 BUN/Creatinine Ratio 20.9 Random Glucose 124 mg/dl Calcium Level 8.9 mg/dl Assessment and Plan 87 yo F, septic from PNA, greatly improving overall, will likely need O2 for a month or so after HCAP - Zosyn switched to Invanz - Continue Vanco ESBL UTI - ?Do not see a culture - Will be covered by Invanz regardless Spasmodic dysphonia -chronic, stable History of Pulmonary nodules, Hx of Lung adenocarcinoma - Pulmonary decided against bronchoscopy on previous admission for Pneumonia - F/U as outpatient CKD, HTN c/w Losartan H/o PE/ DVT Continue Xarelto 15 mg daily H/o DCIS, s/p R mastectomy stable, in remission GERD PPI H/o Gout continue Allopurinol DVT PPX- Xarelto Code Status Level V, DO NOT RESUSCITATE Resident Physician Supervision Note: I interviewed and examined the patient. Discussed with Dr. Karimi and agree with findings and plan as documented in the note. Any exceptions or clarifications are listed here: None Documented By: Ivan Marcus breathing better no new problems uses O2 at HS and sometimes with exertion HCAP - improving, continue abx restless legs - seems more stable today otherwise as above hopefully home 1-2 days Resident Tracking Resident Involvement: Resident Care Provided Care Provided: Adult Hospital Medicine
[2018-03-17] MEDS: ALBUT/IPRATROP 3MG/0.5MG NEB 3 ML VIAL INH SCH ×4 (07:13→19:15)
[2018-03-17] MEDS: PIPERACILL/TAZOBAC IV 4.5 GM in NSS 100 ML IV SCH (08:10)
[2018-03-17] MEDS: FLUTICASONE PROPIONATE NA SPR 16 GM BTL NAE SCH (08:11)
[2018-03-17] MEDS: FLUTICASONE/SALMETEROL (ADVAIR) 500/50 INH 14 PUFF INH SCH ×2 (08:11→20:10)
[2018-03-17] MEDS: POLYETHYLENE (MIRALAX) 17 GM PACK PO SCH (08:11)
[2018-03-17] MEDS: LOSARTAN POTASSIUM 50 MG TAB PO SCH (08:12)
[2018-03-17] MEDS: ALLOPURINOL 100 MG TAB PO SCH (08:13)
[2018-03-17] MEDS: RIVAROXABAN TAB 15 MG TAB PO SCH (08:13)
[2018-03-17] MEDS: CEROVITE ADV FORMULA TAB PO SCH (08:13)
[2018-03-17] MEDS: ERTAPENEM IV 1 GM in SODIUM CHLOR 0.9% AD-VAN 50ML 50 ML IV SCH ×2 (13:18→14:06)
[2018-03-17] MEDS: VANCOMYCIN IV 1,250 MG in SODIUM CHLORIDE 0.9% 250ML 250 ML IV SCH (14:06)
[2018-03-17] MEDS: OXYCODONE HCL IR 5 MG TAB (IMMEDIATE RELEASE) PO PRN ×2 (14:08→20:11)
[2018-03-17] MEDS: ROPINIROLE HCL 1 MG TAB PO SCH (18:34)
[2018-03-17] MEDS: GABAPENTIN 300 MG CAP PO SCH (20:10)
[2018-03-17] MEDS: MONTELUKAST SOD 10 MG TAB PO SCH (20:10)
[2018-03-17] MEDS: DULOXETINE (CYMBALTA) 30 MG CAP PO SCH (20:10)
[2018-03-17] MEDS ORDERED: ROPINIROLE HCL 0.25 MG TAB PO ONE (20:46)
[2018-03-18] VITALS (12 sets, daily range): BP systolic 121–163; BP diastolic 71–95; PULSE 69–89; TEMP 36.4–36.6; O2SAT 91–96
[2018-03-18] MEDS: GUAIFENESIN 200 MG TAB PO SCH ×6 (02:00→20:42)
[2018-03-18 05:06] LABS: BASO % 0.2 %; BASO ABS # 0.02 K/uL (0-0.2); EOS % 2.2 %; EOS ABS # 0.18 K/uL (0-0.5); HEMATOCRIT 35.5 % (37-47); HEMOGLOBIN 11.7 g/dL (12.0-16.0); IG# 0.09 K/uL (0.00-0.02); LYMPH % 22.9 %; LYMPH ABS # 1.89 K/uL (1.2-3.4); MEAN CELL VOLUME 105.3 fL (80-100); MEAN CORPUSCULAR HEMOGLOBIN 34.7 pg (25-34); MONO % 20.1 %; MONO ABS # 1.66 K/uL (0.11-0.59); NEUT % 53.5 %; NEUT ABS # 4.41 K/uL (1.4-6.5); PLATELET COUNT 135 K/uL (130-400); RED CELL DISTRIBUTION WIDTH CV 16.3 % (11.5-14.5); RED CELL DISTRIBUTION WIDTH SD 63.1 fL (36.4-46.3); WHITE BLOOD COUNT 8.25 K/uL (4.8-10.8)
[2018-03-18 05:31] LABS: CALCIUM 9.9 mg/dl (8.5-10.1); CREATININE 1.07 mg/dl (0.60-1.20); POTASSIUM 4.7 mmol/L (3.5-5.1)
[2018-03-18] MEDS: ALBUT/IPRATROP 3MG/0.5MG NEB 3 ML VIAL INH SCH ×4 (07:21→19:59)
[2018-03-18] MEDS ORDERED: VANCOMYCIN TROUGH ONE (07:30)
[2018-03-18] MEDS: CEROVITE ADV FORMULA TAB PO SCH (07:47)
[2018-03-18] MEDS: FLUTICASONE PROPIONATE NA SPR 16 GM BTL NAE SCH (07:47)
[2018-03-18] MEDS: LOSARTAN POTASSIUM 50 MG TAB PO SCH (07:47)
[2018-03-18] MEDS: POLYETHYLENE (MIRALAX) 17 GM PACK PO SCH (07:47)
[2018-03-18] MEDS: RIVAROXABAN TAB 15 MG TAB PO SCH (07:47)
[2018-03-18] MEDS: FLUTICASONE/SALMETEROL (ADVAIR) 500/50 INH 14 PUFF INH SCH ×2 (07:47→20:41)
[2018-03-18] MEDS: ALLOPURINOL 100 MG TAB PO SCH (07:47)
--- NOTE | 2018-03-18 10:29 | Family Medicine Progress Note ---
Progress Note Date of Service March 18, 2018. Subjective Pt evaluation today including: conversation w/ patient, physical exam Voiding: no voiding problems Feels better, denies any pain or issues with breathing. Feels she can walk well. OT recommended short stay at SNF prior to returning to the [facility]. Constitutional: No fever, No chills ENT: No hearing loss Respiratory: No cough All Other Systems: Reviewed and Negative Medications Current Inpatient Medications Medications (Trade) Dose Ordered Sig/Shilpa Route Start Time Stop Time Status Last Admin Dose Admin Albuterol/ Ipratropium (Duoneb) 3 ml QIDR INH 03/16/18 08:00 04/15/18 07:59 03/18/18 07:21 3 ML Salmeterol Xinafoate/ Fluticasone (Advair Diskus 500/50 Inh) 1 puff BID INH 03/16/18 09:00 04/15/18 08:59 03/18/18 07:47 1 PUFF Fluticasone Propionate (Flonase Nasal [place]) 2 sprays DAILY TEOFILO 03/16/18 09:00 04/15/18 08:59 03/18/18 07:47 2 SPRAYS Miscellaneous Information (Consult) 1 ea UD PRN N/A 03/16/18 04:15 04/15/18 04:14 Acetaminophen (Tylenol Tab) 650 mg Q4H PRN PO 03/16/18 04:30 04/15/18 04:29 Al Hydrox/Mg Hydrox/Simethicone (Maalox Max Susp) 15 ml Q4H PRN PO 03/16/18 04:30 04/15/18 04:29 Magnesium Hydroxide (Milk Of Magnesia Susp) 30 ml Q12H PRN PO 03/16/18 04:30 04/15/18 04:29 Nitroglycerin (Nitrostat Tab) 0.4 mg UD PRN SL 03/16/18 04:30 04/15/18 04:29 Allopurinol (Zyloprim Tab) 100 mg QAM PO 03/16/18 09:00 04/15/18 08:59 03/18/18 07:47 100 MG Duloxetine HCl (Cymbalta Cap) 30 mg HS PO 03/16/18 21:00 04/15/18 20:59 03/17/18 20:10 30 MG Gabapentin (Neurontin Cap) 300 mg HS PO 03/16/18 21:00 04/15/18 20:59 03/17/18 20:10 300 MG Losartan Potassium (coZAAR TAB) 50 mg DAILY PO 03/16/18 09:00 04/15/18 08:59 03/18/18 07:47 50 MG Guaifenesin (Organidin Nr Tab) 200 mg Q4H PO 03/16/18 06:00 04/15/18 05:59 03/18/18 09:59 200 MG Ondansetron HCl (Zofran Tab) 4 mg Q6H PRN PO 03/16/18 05:00 04/15/18 04:59 Oxycodone HCl (Roxicodone Immediate Rel Tab) 5 mg Q6H PRN PO 03/16/18 05:00 03/30/18 04:59 03/17/18 20:11 5 MG Ropinirole HCl (Requip Tab) 1 mg HS PO 03/16/18 21:00 04/15/18 20:59 03/17/18 18:34 1 MG Ondansetron HCl (Zofran Inj) 4 mg Q6H PRN IV 03/16/18 05:00 04/15/18 04:59 03/16/18 09:32 4 MG Montelukast Sodium (Singulair Tab) 10 mg HS PO 03/16/18 21:00 04/15/18 20:59 03/17/18 20:10 10 MG Multivitamins/ Minerals (Multivitamin W/ Minerals Tab) 1 tab QAM PO 03/16/18 09:00 04/15/18 08:59 03/18/18 07:47 1 TAB Polyethylene (Miralax Powder Packet) 17 gm QAM PO 03/16/18 09:00 04/15/18 08:59 03/18/18 07:47 17 GM Rivaroxaban (Xarelto Tab) 15 mg QAM PO 03/16/18 09:00 04/15/18 08:59 03/18/18 07:47 15 MG Vancomycin HCl 1250 mg/Sodium Chloride 275 ml @ 125 mls/hr Q18H IV 03/16/18 20:00 03/23/18 01:59 Future Hold 03/17/18 14:06 125 MLS/HR Ertapenem 1 gm/ Sodium Chloride 50 ml @ 120 mls/hr Q24H IV 03/17/18 12:00 03/24/18 11:59 03/17/18 14:06 120 MLS/HR Objective Vital Signs Date Time Temp Pulse Resp B/P (MAP) Pulse Ox O2 Delivery O2 Flow Rate FiO2 03/18/18 08:00 Nasal Cannula 4.0 Humidified Oxygen 03/18/18 07:22 36.5 72 18 148/82 (104) 93 Nasal Cannula 4.0 03/18/18 07:21 77 16 94 Nasal Cannula 4.0 03/18/18 04:00 36.5 73 22 163/95 (117) 92 CPAP 4.0 03/18/18 04:00 Nasal Cannula 4.0 CPAP 03/18/18 00:18 36.6 74 20 125/71 (89) 95 CPAP 03/18/18 00:02 Nasal Cannula CPAP 03/17/18 22:12 80 97 4.0 03/17/18 20:00 Nasal Cannula 4.0 03/17/18 19:15 77 16 98 Nasal Cannula 4.0 03/17/18 18:57 36.5 88 18 169/78 (108) 95 Nasal Cannula 4.0 03/17/18 16:00 Nasal Cannula 4.0 03/17/18 15:27 71 16 97 Nasal Cannula 4.0 03/17/18 14:54 36.5 82 20 156/79 (104) 94 Nasal Cannula 4.0 03/17/18 12:00 Nasal Cannula 4.0 Humidified Oxygen 03/17/18 11:34 36.6 67 18 154/83 (106) 100 Nasal Cannula 2.0 03/17/18 11:16 74 16 96 Nasal Cannula 3.0 Physical Exam General Appearance: WD/WN, no apparent distress Eyes: normal inspection, PERRL ENT: hearing grossly normal Neck: supple, no JVD Respiratory/Chest: lungs clear, normal breath sounds, no respiratory distress Cardiovascular: regular rate, rhythm, no murmur Abdomen: normal bowel sounds, non tender, soft Extremities: non-tender, no pedal edema Neurologic/Psychiatric: alert, normal mood/affect Skin: no rash Laboratory Results Last 24 Hours Test 03/18/18 04:58 03/18/18 08:50 White Blood Count 8.25 K/uL Red Blood Count 3.37 M/uL Hemoglobin 11.7 g/dL Hematocrit 35.5 % Mean Corpuscular Volume 105.3 fL Mean Corpuscular Hemoglobin 34.7 pg Mean Corpuscular Hemoglobin Concent 33.0 g/dl Platelet Count 135 K/uL Mean Platelet Volume 12.0 fL Neutrophils (%) (Auto) 53.5 % Lymphocytes (%) (Auto) 22.9 % Monocytes (%) (Auto) 20.1 % Eosinophils (%) (Auto) 2.2 % Basophils (%) (Auto) 0.2 % Neutrophils # (Auto) 4.41 K/uL Lymphocytes # (Auto) 1.89 K/uL Monocytes # (Auto) 1.66 K/uL Eosinophils # (Auto) 0.18 K/uL Basophils # (Auto) 0.02 K/uL RDW Standard Deviation 63.1 fL RDW Coefficient of Variation 16.3 % Immature Granulocyte % (Auto) 1.1 % Immature Granulocyte # (Auto) 0.09 K/uL Sodium Level 141 mmol/L Potassium Level 4.7 mmol/L Chloride Level 110 mmol/L Carbon Dioxide Level 28 mmol/L Anion Gap 3.0 mmol/L Blood Urea Nitrogen 20 mg/dl Creatinine 1.07 mg/dl Est Creatinine Clear Calc Drug Dose 49.7 ml/min Estimated GFR () 54.4 Estimated GFR (Non- 47.0 BUN/Creatinine Ratio 18.4 Random Glucose 108 mg/dl Calcium Level 9.9 mg/dl Random Vancomycin Level 13.6 mcg/ml Assessment and Plan 87 yo F, septic from PNA, greatly improving overall, will likely need O2 for a month or so after HCAP - Stop IV Abx - Will switch to PO Levaquin/Doxy - Encourage to work with therapy well tomorrow / ambulate today - do not feel that she needs SNF stay, she does all ADL's independently, hopefully she can go back to the [facility] tomorrow ESBL UTI - Will be covered by Invanz regardless Spasmodic dysphonia - Chronic, stable History of Pulmonary nodules, Hx of Lung adenocarcinoma - Pulmonary decided against bronchoscopy on previous admission for Pneumonia - F/U as outpatient - Pt informed us she was on a Fentanyl patch 50mcg q 72 hours which had not been continued in the hospital - PDMP reviewed, pt gets Fentanyl patch and Oxy IR regularly, no risk of misuse or diversion CKD, HTN c/w Losartan H/o PE/ DVT Continue Xarelto 15 mg daily H/o DCIS, s/p R mastectomy stable, in remission GERD PPI H/o Gout continue Allopurinol DVT PPX- Xarelto Code Status Level V, DO NOT RESUSCITATE Resident Physician Supervision Note: I interviewed and examined the patient. Discussed with Dr. Karimi and agree with findings and plan as documented in the note. Any exceptions or clarifications are listed here: None Documented By: Ivan Marcus feeling better overall HCAP - improving, continue abx as above restless legs - better therapy was suggesting SNF but seems that with more time and increased activity she can hopefully get back to her home setting wears O2 HS and sometimes with exertion - she'll likely need 24/ for near future Resident Tracking Resident Involvement: Resident Care Provided Care Provided: Adult Hospital Medicine
[2018-03-18] MEDS ORDERED: DOXYCYCLINE HYCLATE 100 MG CAP PO ONE (11:30)
[2018-03-18] MEDS ORDERED: VANCOMYCIN IV 1,250 MG in SODIUM CHLORIDE 0.9% 250ML 250 ML IV SCH (12:00)
[2018-03-18] MEDS: LEVOFLOXACIN 750 MG TAB PO SCH (12:43)
[2018-03-18] MEDS ORDERED: NURSING VERBAL MED ORDER ONE ×2 (15:15→16:45)
[2018-03-18] MEDS: CHECK FENTANYL PATCH PLACEMENT SCH ×2 (15:28→23:41)
[2018-03-18] MEDS ORDERED: FENTANYL 50 MCG/HR TDSY TD SCH (15:30)
[2018-03-18] MEDS: OXYCODONE HCL IR 5 MG TAB (IMMEDIATE RELEASE) PO PRN ×2 (15:46→20:49)
[2018-03-18] MEDS ORDERED: ROPINIROLE HCL 1 MG TAB PO PRN (17:30)
[2018-03-18] MEDS ORDERED: ROPINIROLE HCL 5 MG TAB PO PRN (17:30)
[2018-03-18] MEDS: GABAPENTIN 300 MG CAP PO SCH (20:41)
[2018-03-18] MEDS: MONTELUKAST SOD 10 MG TAB PO SCH (20:41)
[2018-03-18] MEDS: ROPINIROLE HCL 1 MG TAB PO SCH (20:41)
[2018-03-18] MEDS: DULOXETINE (CYMBALTA) 30 MG CAP PO SCH (20:41)
[2018-03-18] MEDS: DOXYCYCLINE HYCLATE 100 MG CAP PO SCH (20:42)
[2018-03-18] MEDS: ONDANSETRON INJ 2 MG/ML 2 ML VIAL IV PRN (21:35)
[2018-03-19] MEDS: GUAIFENESIN 200 MG TAB PO SCH ×4 (02:00→14:11)
[2018-03-19 05:10] LABS: HEMATOCRIT 37.2 % (37-47); HEMOGLOBIN 12.4 g/dL (12.0-16.0); MEAN CELL VOLUME 104.5 fL (80-100); MEAN CORPUSCULAR HEMOGLOBIN 34.8 pg (25-34); MEAN PLATELET VOLUME 11.4 fL (7.4-10.4); PLATELET COUNT 156 K/uL (130-400); RED CELL DISTRIBUTION WIDTH SD 61.4 fL (36.4-46.3); WHITE BLOOD COUNT 9.24 K/uL (4.8-10.8)
[2018-03-19 05:12] LABS: MEAN CORPUSCULAR HGB CONC 33.3 g/dl (32-36)
[2018-03-19 05:38] LABS: CALCIUM 9.9 mg/dl (8.5-10.1); CREATININE 1.08 mg/dl (0.60-1.20); POTASSIUM 4.3 mmol/L (3.5-5.1)
[2018-03-19 07:10] VITALS: BP 172/77; PULSE 73; TEMP 36.5; O2SAT 97
[2018-03-19] MEDS: ALBUT/IPRATROP 3MG/0.5MG NEB 3 ML VIAL INH SCH ×2 (07:13→11:32)
[2018-03-19 07:14] VITALS: PULSE 68; O2SAT 96
[2018-03-19] MEDS: FLUTICASONE/SALMETEROL (ADVAIR) 500/50 INH 14 PUFF INH SCH (07:29)
[2018-03-19] MEDS: CHECK FENTANYL PATCH PLACEMENT SCH (07:29)
[2018-03-19] MEDS: CEROVITE ADV FORMULA TAB PO SCH (07:30)
[2018-03-19] MEDS: ALLOPURINOL 100 MG TAB PO SCH (07:30)
[2018-03-19] MEDS: FLUTICASONE PROPIONATE NA SPR 16 GM BTL NAE SCH (07:30)
[2018-03-19] MEDS: POLYETHYLENE (MIRALAX) 17 GM PACK PO SCH (07:30)
[2018-03-19] MEDS: LOSARTAN POTASSIUM 50 MG TAB PO SCH (07:30)
[2018-03-19] MEDS: RIVAROXABAN TAB 15 MG TAB PO SCH (07:31)
[2018-03-19] MEDS: DOXYCYCLINE HYCLATE 100 MG CAP PO SCH (07:31)
--- NOTE | 2018-03-19 09:27 | Clinical Documentation Query ---
Dr. [facility] : CLINICAL DOCUMENTATION QUERY Patient is an 87 year old female admitted for evaluation of progressive generalized weakness. Documentation has noted patient to be "septic from PNA". Unfortunately, indexing this terminology via tabular list does not find this term synonymous with sepsis. In coding terminology, this is dot to a localized infection versus the systemic process conveyed by sepsis. As appropriate, consider documentation as suggested below as this impacts accurate DRG assignment. Thank you. In your clinical opinion is this patient being managed for: ( ) Sepsis due to HCAP ( ) Not Agree ( ) Other explanation of clinical findings (Please Explain. If no explanation given, this would be considered a no response.) ( ) Unable to determine ( ) Need to Discuss (Please call CDS via extension or qliq. If no interaction occurs this is considered a no response.) The medical record reflects the following clinical findings, treatment, and risk factors. Clinical Indicators: As above Treatment: Antibiotics, ambulation, cultures, labs, supplemental O2 Risk Factors: Age, obesity, recent admission Please clarify and document your clinical opinion in the progress notes and discharge summary. Terms such as "probable", "suspected", "likely", "questionable", "possible", or "still to be ruled out" are acceptable. IF IN AGREEMENT, YOU MUST DOCUMENT ABOVE DIAGNOSTIC STATEMENT IN DAILY PROGRESS NOTES AND DISCHARGE SUMMARY. This document is not part of the patient's record. Thank You, Kt Lockett RN [phone]
[2018-03-19] MEDS: LEVOFLOXACIN 750 MG TAB PO SCH (10:40)
[2018-03-19 11:33] VITALS: PULSE 78; O2SAT 96
--- NOTE | 2018-03-19 14:16 | Discharge Instructions ---
Discharge Instructions Date of Service March 19, 2018. Admission Reason for Admission: Pneumonia, Uti Discharge Discharge Diagnosis / Problem: Pneumonia and UTI Discharge Goals Goal(s): Improve function, Therapeutic intervention Activity Recommendations Activity Limitations: as noted below Lifting Limitations: gradually increase as tolerated Exercise/Sports Limitations: gradually increase as tolerated Shower/Bathe: no limitations . Instructions / Follow-Up Instructions / Follow-Up You were admitted for a pneumonia and urinary tract infection. You will be discharged back to the [facility] on 3L of oxygen and a 7 day course of antibiotics. [facility] will deliver tubing for your home oxygen tomorrow. Medications 1) Doxycycline 100mg: Take 1 table twice daily for 7 days 2) Levaquin 750mg: Take 1 tablet once daily for 7 days 3) Resume all other home medications Follow Up: 1) [facility] will arrange for a follow up appointment with your primary care doctor in the next 1-2 days If you present with any worsening shortness of breath, cough, fever, chills, burning on urination, chest pain, or any other concerning symptoms follow up with your primary care doctor or return to the emergency department for re- evaluation Current Hospital Diet Patient's current hospital diet: Regular Diet Discharge Diet Recommended Diet: AHA Diet (Heart Healthy) Pending Studies Studies pending at discharge: no Medical Emergencies . Who to Call and When: Medical Emergencies: If at any time you feel your situation is an emergency, please call 911 immediately. . Non-Emergent Contact Non-Emergency issues call your: Primary Care Provider . . "Provider Documentation" section prepared by Keshawn Rico. .
[2018-03-19] MEDS ORDERED: DXY100 PO (14:21)
[2018-03-19] MEDS ORDERED: LVQ750 PO (14:21)
[2018-03-19 14:39] VITALS: BP 172/77; PULSE 78; TEMP 36.5; O2SAT 96
--- NOTE | 2018-03-19 23:19 | Discharge Summary ---
Discharge Summary Date of Service March 19, 2018. Discharge Summary Admission Date: March 16, 2018 at 03:48 Discharge Date: March 19, 2018 Discharge Disposition: Personal care ([facility]) Principal Diagnosis: HCAP + UTI Problems/Secondary Diagnoses: (1) Stomach problems Status: Chronic Immunizations: Have You Had Influenza Vaccine: Yes Influenza Vaccine Date: Aug 20, 2010 History of Tetanus Vaccine?: UNSURE History of Pneumococcal: Yes Pneumococcal Date: Aug 13, 2008 History of Hepatitis B Vaccine: Unknown Medication Reconciliation New Medications: Doxycycline Hyclate (Doxycycline Hyclate) 100 Mg Cap 100 MG PO BID for 7 Days, #14 CAP Levofloxacin (Levofloxacin) 750 Mg Tab 750 MG PO DAILY@11 for 7 Days, #7 TAB Continued Medications: Acetaminophen (Tylenol) 325 Mg Tab 325-650 MG PO Q6 PRN for Pain Allopurinol (Zyloprim) 100 Mg Tab 100 MG PO QAM Azelastine Hcl (Astelin Nasal [place]) 200 Sprays/30 Ml [place] 2 SPRAYS TEOFILO BID Calcium Carbonate-Vitamin D (Oyster Shell Calcium/D3 500-400 mg-Unit) 1 Tab Tab 1 TAB PO BID Cyclosporine Oph 0.05% (Restasis Oph 0.05%) Emul 1 DROP OPB BID Duloxetine HCl (Cymbalta) 30 Mg Cap 30 MG PO HS Fentanyl (Duragesic) 50 Mcg Tdsy 50 MCG TD [id number] Fluticasone Prop/Salmeterol (Advair Diskus 500/50 60 Dose) 1 Ea Aerp 1 PUFFS INH BID Fluticasone Propionate (Nasal) (Flonase Allergy Relief) 50 Mcg/Act Spr 2 SPRAYS TEOFILO DAILY Gabapentin (Neurontin) 300 Mg Cap 300 MG PO HS, CAP Home O2 Therapy (Oxygen) Gas 2 LITERS INTNAS HS WITH CPAP Losartan Potassium (Cozaar) 50 Mg Tab 50 MG PO DAILY Montelukast Sodium (Singulair) 10 Mg Tab 10 MG PO HS Multiple Vitamins W/ Minerals (Centrum) 1 Tab Tab 1 TAB PO QAM Omeprazole (Prilosec) 20 Mg Capcr 20 MG PO DAILY Ondansetron (Ondansetron HCl) 4 Mg Tab 4 MG PO Q6H PRN for Nausea Oxycodone Ir (Roxicodone Ir) 5 Mg Tab 5 MG PO Q6H PRN for Pain Polyethylene (Miralax Powder Packet) 17 Gm Pack 17 GM PO QAM Ranitidine (Zantac) 300 Mg Tab 300 MG PO HS Rivaroxaban (Xarelto) 15 Mg Tab 15 MG PO QAM TAKE WITH THE LARGEST MEAL OF THE DAY. Ropinirole HCl (Ropinirole HCl) 1 Mg Tab 1 TAB PO HS [Ventolin Hfa 108] () 2 PUFFS INH Q4H PRN for SOB/Wheezing Discontinued Medications: Nitrofurantoin Macrocrystals (Macrodantin) 100 Mg Cap 100 MG PO BID BEGIN 03/15/18 X 5 DAYS Discharge Exam Review of Systems: Constitutional: No fever, No chills, No sweats, No fatigue Respiratory: No cough, No sputum, No wheezing, No shortness of breath Cardiovascular: No chest pain, No orthopnea, No edema Abdomen: No pain, No nausea, No vomiting, No diarrhea, No constipation Musculoskeletal: No joint pain, No swelling Genitourinary - Female: No dysuria, No urinary frequency Neurologic: No memory loss, No paralysis, No numbness/tingling Endocrine: No fatigue Physical Exam: General Appearance: WD/WN, no apparent distress Eyes: normal inspection, sclerae normal Neck: supple, trachea midline Respiratory/Chest: chest non-tender, lungs clear, normal breath sounds, no respiratory distress, no accessory muscle use Cardiovascular: regular rate, rhythm, no edema, no murmur Abdomen / GI: normal bowel sounds, non tender, soft Neurologic/Psychiatric: alert, oriented x 3 Hospital Course 87 yo F, septic from PNA, UTI greatly improving overall, will likely need O2 for a month or so after Healthcare associated Pneumonia - Initially treated with Ertapenem - Will switch to PO Levaquin/Doxy for completion of 10 days of antibiotics - Encourage to work with therapy well tomorrow / ambulate today - do not feel that she needs SNF stay, she does all ADL's independently, hopefully she can go back to the [facility] tomorrow - Currently on 3L of Oxygen all day on discharge --> At home on Oxygen only at night ESBL UTI - Coverage with Levaquin/ Doxycycline - No urinary complaints on discharge Spasmodic dysphonia - Chronic, stable History of Pulmonary nodules, Hx of Lung adenocarcinoma - Pulmonary decided against bronchoscopy on previous admission for Pneumonia - F/U as outpatient - Pt informed us she was on a Fentanyl patch 50mcg q 72 hours which had not been continued in the hospital - PDMP reviewed, pt gets Fentanyl patch and Oxy IR regularly, no risk of misuse or diversion CKD, HTN c/w Losartan H/o PE/ DVT Continue Xarelto 15 mg daily H/o DCIS, s/p R mastectomy stable, in remission GERD PPI H/o Gout continue Allopurinol DVT PPX- Xarelto Code Status Level V, DO NOT RESUSCITATE Total Time Spent: Greater than 30 minutes This includes examination of the patient, discharge planning, medication reconciliation, and communication with other providers. Discharge Instructions Please refer to the electronic Patient Visit Report (Discharge Instructions) for additional information. Resident Tracking Resident Involvement: Resident Care Provided Care Provided: Adult Hospital Medicine Reviewed: Pt Seen/Exam by Me History no new concerns Constitutional: denies: fever Respiratory: negative: short of breath Cardiovascular: denies chest pain General Appearance: no apparent distress Respiratory: lungs clear, no respiratory distress Cardiovascular: regular rate, rhythm Neurologic/Psychiatric: alert Skin Characteristics: warm/dry Assessment/Plan Resident Physician Supervision Note: I independently interviewed and examined the patient and verified the rene history and physical, reviewed labs and image studies, discussed the case with the resident Dr. Rico and agree with the findings and care plan. Time spent in discharge 35 min
[2018-03-21] MEDS ORDERED: FENTANYL PATCH REMOVE & WASTE SCH (15:29)
--- NOTE | 2018-03-21 15:50 | EDITING REQUIRED CODING QUERY ---
CODING QUERY To promote full compliance with coding requirements relating to patient care, provider participation is requested in all cases of private chef uncertainty. Please assist us with the question(s) below: Coding Question(s): Please clarify for accurate coding purposes. Documentation is made stating septic from PNA. In your clinical opinion is patient being treated for: ( ) Sepsis due to HCAP ( ) Other Please specify ( ) Unable to determine Physician's Response(s): Thank you Pham Graves Principal Diagnosis: "_that condition established after study, to be chiefly responsible for occasioning the admission of the patient to the hospital for care." Co-Existing Principal Diagnosis: "_when two or more diagnoses equally meet the criteria for principal diagnosis as determined by the circumstances of admission, diagnostic work up, and/or therapy provided, and the Alphabetic Index, Tabular List, or another coding guideline does not provide sequencing direction, any one of the diagnoses may be sequenced first." "When the physician has documented what appears to be a current diagnosis in the body of the record, but has not included the diagnosis in the final diagnostic statement, the physician should be asked whether the diagnosis should be added." (Source Coding Clinic 2 QTR90. p3-4)
== END 2018-03-19 15:52 | disposition home or self-care (01) | DRG 194 ==
LOC: EDSEX 00:39 → EDBD 00:39 → C.EDB 00:40 → C.MED 03:48 → EDBEDREQ 03:51 → ENRESERV 04:01
PROVIDERS: ADMIT Hospitalist; ATTEND Family Medicine
DX: J18.9 Pneumonia, unspecified organism (principal); N39.0 Urinary tract infection, site not specified; J96.10 Chronic respiratory failure, unspecified whether with hypoxia or hypercapnia; J45.909 Unspecified asthma, uncomplicated; N18.3 Chronic kidney disease, stage 3 (moderate); I10 Essential (primary) hypertension; J38.3 Other diseases of vocal cords; K21.9 Gastro-esophageal reflux disease without esophagitis; M10.9 Gout, unspecified; Z66 Do not resuscitate; Z96.653 Presence of artificial knee joint, bilateral; Z90.710 Acquired absence of both cervix and uterus; Z99.81 Dependence on supplemental oxygen; Z85.118 Personal history of other malignant neoplasm of bronchus and lung; Z88.8 Allergy status to other drugs, medicaments and biological substances; Z87.01 Personal history of pneumonia (recurrent); Z90.2 Acquired absence of lung [part of]; Z90.10 Acquired absence of unspecified breast and nipple; Z87.440 Personal history of urinary (tract) infections; Z86.711 Personal history of pulmonary embolism; Z82.49 Family history of ischemic heart disease and other diseases of the circulatory system; Z80.9 Family history of malignant neoplasm, unspecified; Z83.3 Family history of diabetes mellitus; Z84.89 Family history of other specified conditions

== ENCOUNTER → 2018-04-02 | Outpatient (CLI) | payer OTHER, BC ==
[~2018-04-02] MED LIST changes: -ASCO500T16 PO; -CEPH-570 PO; -CHOL100010 PO; -CYAN100020 PO; +DXY100 PO; +GABA-113 PO; +LVQ750 PO
== END | disposition home or self-care (01) ==
LOC: C.LABSPEC 17:28
PROVIDERS: ATTEND Nurse Practitioner Adult Health
DX: R39.9 Unspecified symptoms and signs involving the genitourinary system (principal)

== ENCOUNTER → 2018-06-01 | Outpatient (CLI) | payer OTHER, BC ==
[~2018-06-01] MED LIST changes: +ALBU18002 INH; +CEFD1CAP14 PO; +CPR/500 PO; -CYCL0.05 OPB; +CYCL0.052 OP; -DXY100 PO; +FENT1DIS85 TD; -FNTTP50 TD; +INVAV1 IV; -LOSA50TA6 PO; -LVQ750 PO; -OXGN INTNAS; +OXYC-90 PO; -OXYC1TAB3 PO; +POLY335019 PO; -POLY335040 PO; +SPRIN/30 INH; -VENTOLIN HFA 108 INH
== END | disposition home or self-care (01) ==
LOC: C.LAB 13:38
PROVIDERS: ATTEND Nurse Practitioner Adult Health
DX: N39.41 Urge incontinence (principal)

== ENCOUNTER 2018-06-03 22:41 | Inpatient (IN) | payer OTHER, BC ==
[~2018-06-03] VITALS: Ht 167.6 cm; Wt 118.5 kg
[~2018-06-03 22:41] MED LIST changes: -INVAV1 IV
[2018-06-03] MEDS ORDERED: SODIUM CHLORIDE 0.9% 1000ML 1,000 ML IV STA ×2 (22:55→23:33)
[2018-06-03] MEDS ORDERED: ACETAMINOPHEN 500 MG TAB PO STA (22:55)
--- NOTE | 2018-06-03 23:01 | EMERGENCY ROOM VISIT NOTE ---
History First contact with patient: 22:47 Chief Complaint: SHORTNESS OF BREATH Stated Complaint: Difficulty Breathing, Nausea, Possible Sepsis History of Present Illness The patient is a 87 year old female who presents to the Emergency Room for evaluation of weakness. Patient with worsening weakness starting around 6p this evening. Associated with nausea, vomiting, vague abdominal pain. Notes she was SHOB after vomiting. Nause/SHOB resolved after duoneb and zofran by EMS. Patient notes she has mild headache frontal as well which she states is not unusual for her. She is too weak to get up or walk at all. Denies falls, trauma, syncope, cp, leg swelling, rashes, nor other symptoms. Notes UA done 2 days ago revealed new UTI. She was just discharged on Omnicef 2 weeks ago following hospitalization for pneumonia. Patient with history of frequent pneumonia, uti's and previous lung resection for lung CA in 2009 amongst a host of other medical comorbidities. Arrived via EMS after she called 911. Onset: 1800 Position: other (generalized) Quality: other (weakness) Timing: constant Associated Symptoms: + headache, + SOB, + nausea, + vomiting, + abdominal pain, No chest pain, No rash Note: Denies: leg swelling Review of Systems See HPI for pertinent positives & negatives. A total of 10 systems reviewed and were otherwise negative. 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 (14) PE (pulmonary embolism) (15) Pneumonia (16) Sepsis (17) Shortness of breath (18) Spasmodic dysphonia (19) Stomach problems (20) UTI (urinary tract infection) Surgical Problems: (1) H/O mastectomy (2) History of back surgery (3) Hx of appendectomy (4) Hx of hernia repair (5) Hx of hysterectomy (6) Hx of resection of liver (7) Hx of total knee replacement Family History Cancer Diabetes mellitus FH: heart disease FHx: gallbladder disease FHx: lung disease Hypertension Social History Smoking Status: Never Smoker Alcohol Use: occasionally Drug Use: none Marital Status: single Housing Status: lives alone Occupation Status: retired Current/Historical Medications Scheduled Allopurinol (Zyloprim), 100 MG PO QAM Azelastine Hcl (Astelin Nasal [place]), 2 SPRAYS TEOFILO BID Calcium Carbonate-Vitamin D (Oyster Shell Calcium/D3 500-400 mg-Unit), 1 TAB PO BID Ciprofloxacin (Ciprofloxacin HCl), 500 MG PO BID Cyclosporine (Ophth) (Restasis), 1 DROP OP BID Duloxetine HCl (Cymbalta), 30 MG PO HS Fentanyl (Fentanyl), 37.5 MCG TD Q72H Fluticasone Prop/Salmeterol (Advair Diskus 500/50 60 Dose), 1 PUFFS INH BID Fluticasone Propionate (Nasal) (Flonase Allergy Relief), 2 SPRAYS TEOFILO DAILY Gabapentin (Neurontin), 300 MG PO HS Montelukast Sodium (Singulair), 10 MG PO HS Multiple Vitamins W/ Minerals (Centrum), 1 TAB PO QAM Omeprazole (Prilosec), 20 MG PO DAILY Polyethylene Glycol 3350 (Miralax), 17 GM PO DAILY Ranitidine (Zantac), 300 MG PO HS Rivaroxaban (Xarelto), 15 MG PO QAM Ropinirole HCl (Ropinirole HCl), 1 TAB PO HS Tiotropium [place] (Spiriva [place]), 1 CAP INH DAILY Scheduled PRN Acetaminophen (Tylenol), 325-650 MG PO Q6 PRN for Pain Albuterol Sulfate (Proair [place]iclick), 2 PUFFS INH Q4H PRN for Shortness of Breath Ondansetron (Ondansetron HCl), 4 MG PO Q6H PRN for Nausea Oxycodone Ir (Roxicodone Ir), 5 MG PO Q6H PRN for Pain Physical Exam Vital Signs Date Time Temp Pulse Resp B/P (MAP) Pulse Ox O2 Delivery O2 Flow Rate FiO2 06/04/18 00:30 105 29 126/67 92 Oxymask 7.0 06/04/18 00:00 104 26 124/68 93 Oxymask 7.0 06/03/18 22:55 119 06/03/18 22:53 93 Nasal Cannula 5.0 06/03/18 22:53 39.2 06/03/18 22:53 39.2 125 30 128/61 92 Nasal Cannula 5.0 Physical Exam GENERAL: Patient is ill appearing and in moderate distress. EYES: No scleral icterus, unremarkable pupils. ENT: Mucous membranes dry, no nasal congestion. NECK: No masses appreciated, no meningismus, trachea is midline. RESPIRATORY: Moderate dyspnea. Clear to auscultation and equal bilaterally. No wheeze, no rhonchi. CARDIOVASCULAR: Tachycardic. No murmurs, rubs, gallops appreciated. GASTROINTESTINAL: Abdomen soft, nontender, no peritonitis. Bowel sounds positive. No masses appreciated. BACK: No midline tenderness, no CVA tenderness EXTREMITIES: Normal motion all extremities, no cyanosis, mild bilateral lower leg edema. NEUROLOGIC: Alert and oriented, no acute motor or sensory deficits, no focal weakness, cranial nerves grossly intact. SKIN: No rash, no jaundice, no diaphoresis. Medical Decision & Procedures ER Provider Diagnostic Interpretation: X ray results are stated below per my interpretation: Chest: 1 view: Mild congestive findings bilaterally. Questionable new infiltrates of bilateral lower lobes. Scarring of the right lower lobe. Laboratory Results 06/03/18 23:05 Red Blood Count 3.49, Mean Corpuscular Volume 108.3, Mean Corpuscular Hemoglobin 35.0, Mean Corpuscular Hemoglobin Concent 32.3, Mean Platelet Volume 11.9 06/03/18 23:05 Test 06/03/18 23:05 06/03/18 23:19 06/03/18 23:40 White Blood Count 28.05 K/uL (4.8-10.8) Red Blood Count 3.49 M/uL (4.2-5.4) Hemoglobin 12.2 g/dL (12.0-16.0) Hematocrit 37.8 % (37-47) Mean Corpuscular Volume 108.3 fL (80-100) Mean Corpuscular Hemoglobin 35.0 pg (25-34) Mean Corpuscular Hemoglobin Concent 32.3 g/dl (32-36) Platelet Count 186 K/uL (130-400) Mean Platelet Volume 11.9 fL (7.4-10.4) RDW Standard Deviation 65.7 fL (36.4-46.3) RDW Coefficient of Variation 16.8 % (11.5-14.5) Neutrophils % (Manual) 95.0 % Monocytes % (Manual) 5.0 % Neutrophils # (Manual) 26.65 K/uL (1.4-6.5) Total Absolute Neutrophils 26.65 K/uL (1.4-6.5) Total Absolute Lymphocytes 0.00 K/uL (1.2-3.4) Monocytes # (Manual) 1.40 K/uL (0.11-0.59) Prothrombin Time 10.3 SECONDS (9.0-12.0) Prothromb Time International Ratio 1.0 (0.9-1.1) Anion Gap 8.0 mmol/L (3-11) Est Creatinine Clear Calc Drug Dose 56.3 ml/min Estimated GFR () 63.7 Estimated GFR (Non- 54.9 BUN/Creatinine Ratio 19.1 (10-20) Calcium Level 9.1 mg/dl (8.5-10.1) Phosphorus Level 1.7 mg/dl (2.5-4.9) Magnesium Level 1.6 mg/dl (1.8-2.4) Total Bilirubin 0.9 mg/dl (0.2-1) Direct Bilirubin 0.3 mg/dl (0-0.2) Aspartate Amino Transf (AST/SGOT) 29 U/L (15-37) Alanine Aminotransferase (ALT/SGPT) 21 U/L (12-78) Alkaline Phosphatase 74 U/L (45-117) Total Creatine Kinase 17 U/L (26-192) Creatine Kinase MB < 1.0 ng/ml (0.5-3.6) Creatine Kinase MB Ratio (0-3.0) Troponin I < 0.015 ng/ml (0-0.045) Total Protein 5.6 gm/dl (6.4-8.2) Albumin 3.1 gm/dl (3.4-5.0) Procalcitonin 2.50 ng/ml (0-0.5) Bedside Lactic Acid Venous 1.31 mmol/L (0.90-1.70) Urine Color YELLOW Urine Appearance CLEAR (CLEAR) Urine pH 7.5 (4.5-7.5) Urine Specific [place] 1.008 (1.000-1.030) Urine Protein NEG (NEG) Urine Glucose (UA) NEG (NEG) Urine Ketones NEG (NEG) Urine Occult Blood NEG (NEG) Urine Nitrite NEG (NEG) Urine Bilirubin NEG (NEG) Urine Urobilinogen NEG (NEG) Urine Leukocyte Esterase NEG (NEG) Urine WBC (Auto) 0 /hpf (0-5) Urine RBC (Auto) 0-4 /hpf (0-4) Urine Hyaline Casts (Auto) 1-5 /lpf (0-5) Urine Epithelial Cells (Auto) 0-5 /lpf (0-5) Urine Bacteria (Auto) NEG (NEG) Laboratory results as reviewed by me. Medications Administered Medications (Trade) Dose Ordered Sig/Shilpa Route Start Time Stop Time Status Last Admin Dose Admin Sodium Chloride 1,000 ml @ 999 mls/hr Q1H1M STAT IV 06/03/18 22:55 06/03/18 23:55 DC 06/03/18 23:41 999 MLS/HR Acetaminophen (Tylenol Tab) 1,000 mg NOW STAT PO 06/03/18 22:55 06/03/18 22:57 DC 06/03/18 23:43 1,000 MG Piperacillin Sod/ Tazobactam Sod (Zosyn Iv) 4.5 gm NOW STAT IV 06/03/18 23:32 06/03/18 23:33 DC 06/03/18 23:43 4.5 GM Vancomycin HCl 2000 mg/Sodium Chloride 540 ml @ 200 mls/hr ONE STAT IV 06/03/18 23:32 06/04/18 02:13 DC 06/04/18 00:25 200 MLS/HR Sodium Chloride 1,000 ml @ 999 mls/hr Q1H1M STAT IV 06/03/18 23:33 06/04/18 00:33 DC 06/04/18 00:06 999 MLS/HR Imipenem/ Cilastatin Sodium 500 mg/Dextrose 110 ml @ 100 mls/hr NOW STAT IV 06/03/18 23:54 06/04/18 00:59 DC 06/04/18 00:26 100 MLS/HR Sodium Chloride 500 ml @ 999 mls/hr Q31M STAT IV 06/03/18 23:59 06/04/18 00:29 DC 06/04/18 01:12 999 MLS/HR ECG Per My Interpretation Indication: weakness Rate (beats per minute): 124 Rhythm: sinus tachycardia Findings: PVC, no acute ischemic change, other (QTC 439) ED Course 2251: The patient was evaluated in room B09. A complete history and physical exam was performed. 2255: Ordered Tylenol Tab 1000 mg PO, Sodium Chloride 1000 ml @ 999 mls/hr IV. 2332: Ordered Vancomycin HCl 2000 mg/Sodium Chloride 540 ml @ 200 mls/hr IV, Zosyn 4.5 gm IV, Sodium Chloride 1000 ml @ 999 mls/hr IV. 2333: Ordered Sodium Chloride 1000 ml @ 999 mls/hr IV. 2354: Ordered Imipenem/Cilastatin Sodium 500 mg/Dextrose 110 ml @ 100 mls/hr IV. 2357: I discussed the patients case with Dr. Swift [facility] Hospitalist. She understands the patients condition and agrees to accept the patient. The patient will be evaluated for further management and care. 2359: Ordered Sodium Chloride 500 ml @ 999 mls/hr IV. 0000: I reevaluated the patient and updated her on the results. I discussed the treatment plan, which she agrees to. Medical Decision Differential: Sepsis, Infectious (UTI/Pneumonia/Meningitis/etc), Metabolic/ Electrolyte Abnormality, Cardiac, Dehydration, Anemia, Hepatic, Endocrine, Toxicologic, Neurologic, amongst other pathologies entertained. 87 yr old female arrives febrile, tachycardic and short of breath following episode of vomiting earlier. Recent dx MDR ecoli UTI 2 days ago as well. IV obtained. Lactic Acid OK. BP OK. Was given Tylenol and 30mg/kg (IBW) fluids with vast improvement in HR and symptoms. Broad spectrum abx started along with imipenem given Ecoli. CXR with bilateral lower infiltrates. Sats doing OK and while patient appears tachypneic/dyspenic she and her daughter say she is breathing at her normal baseline. She has clean urine on straight cath at this point. WBC is very elevated though otherwise labs are doing OK. She is septic likely secondary to pneumonia. She has responded well to initial resus fortunately and lungs seem to be handling fluids well. Abdomen is soft, non- tender thus I feel imaging abdomen not necessary currently. Hospitalist consulted for further management. Medication Reconcilliation Current Medication List: was personally reviewed by me Blood Pressure Screening Patient's blood pressure: Normal blood pressure Consults Time Called: 2356 Consulting Physician: Dr. Swift [facility] Hospitalist Returned Call: [phone] I discussed the patients case with Dr. Swift [facility] Hospitalist. She understands the patients condition and agrees to accept the patient. The patient will be evaluated for further management and care. Impression Primary Impression: Sepsis Additional Impression: Pneumonia Critical Care I have personally spent greater than 35 minutes of critical care time in the direct management of this patient. This was a life/limb threatening event. This includes time spent evaluating patient, direct bedside care, chart review, placing orders, interpretation of diagnostic studies, discussion with consultants, patient, and family members, as well as other required patient management activities. This 35 minutes is in excess of all separately billable procedures. Departure Information Dispostion Being Evaluated By Hospitalist Referrals Tereso Mendez M.D. (PCP) Patient Instructions My [facility] Sepsis Post Crystalloid Evaluation Date: Jun 04, 2018 Time: 00:04 Capillary Refill Exam Normal (less than 2 seconds) Cardiopulmonary Evaluation Lung Exam: chest non-tender, + decreased breath sounds, + crackles Heart Exam: + tachycardia Central Venous Evaluation Pulse Ox %: 92 Peripheral Pulse Evaluation Normal Skin Exam Unremarkable Vitals Last Vital Signs Documentation Date Time Temp Pulse Resp B/P (MAP) Pulse Ox O2 Delivery O2 Flow Rate FiO2 06/04/18 00:30 105 29 126/67 92 Oxymask 7.0 06/03/18 22:53 39.2 Presence Of Severe Sepsis Problem Qualifiers
[2018-06-03 23:27] LABS: HEMATOCRIT 37.8 % (37-47); HEMOGLOBIN 12.2 g/dL (12.0-16.0); MEAN CELL VOLUME 108.3 fL (80-100); MEAN CORPUSCULAR HGB CONC 32.3 g/dl (32-36); MEAN PLATELET VOLUME 11.9 fL (7.4-10.4); PLATELET COUNT 186 K/uL (130-400); RED CELL DISTRIBUTION WIDTH CV 16.8 % (11.5-14.5); RED CELL DISTRIBUTION WIDTH SD 65.7 fL (36.4-46.3); WHITE BLOOD COUNT 28.05 K/uL (4.8-10.8)
[2018-06-03] MEDS ORDERED: VANCOMYCIN IV 2,000 MG in SODIUM CHLORIDE 0.9% 500ML 500 ML IV STA (23:32)
[2018-06-03] MEDS ORDERED: PIPERACILLIN/TAZOBACTAM 4.5 GM/100ML D5W IV STA (23:32)
[2018-06-03] MEDS ORDERED: VANCOMYCIN CONSULT ACTIVE PRN (23:45)
[2018-06-03 23:48] LABS: ALBUMIN 3.1 gm/dl (3.4-5.0); ALKALINE PHOSPHATASE 74 U/L (45-117); ALT/SGPT 21 U/L (12-78); AST/SGOT 29 U/L (15-37); BLOOD UREA NITROGEN 18 mg/dl (7-18); CALCIUM 9.1 mg/dl (8.5-10.1); CARBON DIOXIDE 26 mmol/L (21-32); CKMB < 1.0 ng/ml (0.5-3.6); CREATININE 0.94 mg/dl (0.60-1.20); GLUCOSE 114 mg/dl (70-99); POTASSIUM 3.4 mmol/L (3.5-5.1); SODIUM 144 mmol/L (136-145); TOTAL PROTEIN 5.6 gm/dl (6.4-8.2)
[2018-06-03] MEDS ORDERED: IMIPENEM/CILASTATIN IV 500 MG in DEXTROSE 5% 100ML 100 ML IV STA (23:54)
[2018-06-03] MEDS ORDERED: SODIUM CHLORIDE 0.9% 500ML 500 ML IV STA (23:59)
[2018-06-04] VITALS (8 sets, daily range): BP systolic 95–135; BP diastolic 41–60; PULSE 79–91; TEMP 36.5–37; O2SAT 90–95; Ht 167.6 cm; Wt 118.5 kg
[2018-06-04] MEDS ORDERED: IMIPENEM/CILASTATIN CONSULT ACTIVE PRN (00:29)
[2018-06-04] MEDS ORDERED: NON-FORMULARY MEDICATION (Fentanyl 37.5 MCG) TD SCH (00:30)
[2018-06-04] MEDS ORDERED: ALBUTEROL 0.083% NEBU SOLN 3 ML VIAL INH PRN (00:30)
[2018-06-04] MEDS ORDERED: ONDANSETRON INJ 2 MG/ML 2 ML VIAL IV PRN (00:30)
[2018-06-04] MEDS ORDERED: ACETAMINOPHEN 325 MG TAB PO PRN (00:30)
--- NOTE | 2018-06-04 01:03 | History and Physical ---
History & Physical Date & Time of Service: Jun 04, 2018 at 00:51 Chief Complaint: Difficulty Breathing, Nausea, Possible Sepsis Primary Care Physician: Tereso Mendez M.D. 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 Patient also with mild cough productive of yellow sputum. Also states she has been having dysuria. No additional complaints at this time. Patient had UA performed 06/01/18 which was positive for ESBL E. coli (sensitive only to Cefoxitin, Imipenem/Ertapenem, Gentamicin/Tobramycin/Amikacin). She was prescribed Macrobid 100mg po BID which she started yesterday. She was recently admitted for pneumonia, treated with Cefdinir - patient reports completing this medication ER Course: NSS x 2500 mL, Imipenem, Zosyn, Tylenol Past Medical/Surgical History Medical Problems: MICHI CARLITOS on CPAP Anemia Mucinous bronchoalveolar lung CA s/p wedge resection Pulmonary nodules - adenocarcinoma PE in 2011 Anticoagulation RLE DVT Liver hemangioma ESBL UTI Hypertension Gout CARLITOS DCIS GERD AF with RVR Asthma Intertrigo Surgical Problems: (1) H/O mastectomy (2) History of back surgery (3) Hx of appendectomy (4) Hx of hernia repair (5) Hx of hysterectomy (6) Hx of resection of liver (7) Hx of total knee replacement Family History Cancer Diabetes mellitus FH: heart disease FHx: gallbladder disease FHx: lung disease Hypertension Social History Smoking Status: Never Smoker Alcohol Use: socially Drug Use: none Marital Status: single Housing status: lives alone Occupational Status: retired Immunizations History of Influenza Vaccine: Yes Influenza Vaccine Date: Aug 20, 2010 History of Tetanus Vaccine?: UNSURE History of Pneumococcal: Yes Pneumococcal Date: Aug 13, 2008 History of Hepatitis B Vaccine: Unknown Allergies Coded Allergies: Enoxaparin (Verified Allergy, Intermediate, RASH, PRURITUS, 06/04/18) Home Medications Scheduled Allopurinol (Zyloprim), 100 MG PO QAM Azelastine Hcl (Astelin Nasal [place]), 2 SPRAYS TEOFILO BID Calcium Carbonate-Vitamin D (Oyster Shell Calcium/D3 500-400 mg-Unit), 1 TAB PO BID Ciprofloxacin (Ciprofloxacin HCl), 500 MG PO BID Cyclosporine (Ophth) (Restasis), 1 DROP OP BID Duloxetine HCl (Cymbalta), 30 MG PO HS Fentanyl (Fentanyl), 37.5 MCG TD Q72H Fluticasone Prop/Salmeterol (Advair Diskus 500/50 60 Dose), 1 PUFFS INH BID Fluticasone Propionate (Nasal) (Flonase Allergy Relief), 2 SPRAYS TEOFILO DAILY Gabapentin (Neurontin), 300 MG PO HS Montelukast Sodium (Singulair), 10 MG PO HS Multiple Vitamins W/ Minerals (Centrum), 1 TAB PO QAM Omeprazole (Prilosec), 20 MG PO DAILY Polyethylene Glycol 3350 (Miralax), 17 GM PO DAILY Ranitidine (Zantac), 300 MG PO HS Rivaroxaban (Xarelto), 15 MG PO QAM Ropinirole HCl (Ropinirole HCl), 1 TAB PO HS Tiotropium [place] (Spiriva Handihaler), 1 CAP INH DAILY Scheduled PRN Acetaminophen (Tylenol), 325-650 MG PO Q6 PRN for Pain Albuterol Sulfate (Proair Respiclick), 2 PUFFS INH Q4H PRN for Shortness of Breath Ondansetron (Ondansetron HCl), 4 MG PO Q6H PRN for Nausea Oxycodone Ir (Roxicodone Ir), 5 MG PO Q6H PRN for Pain Review of Systems Constitutional: + fever, + chills, + sweats Eyes: No worsening of vision ENT: No sore throat Respiratory: + cough, + sputum, No wheezing, No shortness of breath Cardiovascular: No chest pain Abdomen: + nausea, + vomiting, No pain Musculoskeletal: No joint pain Genitourinary - Female: + dysuria Neurologic: + weakness Endocrine: + fatigue Hematologic / Lymphatic: No abnormal bleeding/bruising Integumentary: No rash Physical Exam Vital Signs Date Time Temp Pulse Resp B/P (MAP) Pulse Ox O2 Delivery O2 Flow Rate FiO2 06/04/18 00:00 104 26 124/68 93 Oxymask 7.0 06/03/18 22:55 119 06/03/18 22:53 93 Nasal Cannula 5.0 06/03/18 22:53 39.2 06/03/18 22:53 39.2 125 30 128/61 92 Nasal Cannula 5.0 General: patient resting in bed, Oxymask in place, NAD Skin: warm, dry, intact, intertriginous yeast infection at groin folds, no evidence of cellulitis HEENT: NC/AT, PERRL, EOMI, anicteric sclera, conjunctiva without injection, nares patent, moist mucus membranes, no oropharyngeal lesions, neck supple, trachea midline, no thyromegaly, no LAD Heart: +S1/S2, regular, tachycardic, 2/6 FREDERICK Lungs: equal air entry bilaterally, coarse breath sounds in bilateral posterior lung yanez, no rhonchi/wheezes Abdomen: soft, NT/ND, no masses/organomegaly/ascites, no suprapubic tenderness Extremities: warm, well perfused, enlarged right calf, no redness/erythema/ tenderness, no clubbing/cyanosis or edema, 2+ palpable pulses in UE/LE bilaterally Neuro: grossly nonfocal Diagnostics Laboratory Results Results Past 24 Hours Test 06/03/18 23:05 06/03/18 23:19 06/03/18 23:40 06/04/18 00:29 Range/Units White Blood Count 28.05 4.8-10.8 K/uL Red Blood Count 3.49 4.2-5.4 M/uL Hemoglobin 12.2 12.0-16.0 g/dL Hematocrit 37.8 37-47 % Mean Corpuscular Volume 108.3 80-100 fL Mean Corpuscular Hemoglobin 35.0 25-34 pg Mean Corpuscular Hemoglobin Concent 32.3 32-36 g/dl Platelet Count 186 130-400 K/uL Mean Platelet Volume 11.9 7.4-10.4 fL RDW Standard Deviation 65.7 36.4-46.3 fL RDW Coefficient of Variation 16.8 11.5-14.5 % Neutrophils % (Manual) 95.0 % Monocytes % (Manual) 5.0 % Neutrophils # (Manual) 26.65 1.4-6.5 K/uL Total Absolute Neutrophils 26.65 1.4-6.5 K/uL Total Absolute Lymphocytes 0.00 1.2-3.4 K/uL Monocytes # (Manual) 1.40 0.11-0.59 K/uL Prothrombin Time 10.3 9.0-12.0 SECONDS Prothromb Time International Ratio 1.0 0.9-1.1 Sodium Level 144 136-145 mmol/L Potassium Level 3.4 3.5-5.1 mmol/L Chloride Level 110 98-107 mmol/L Carbon Dioxide Level 26 21-32 mmol/L Anion Gap 8.0 3-11 mmol/L Blood Urea Nitrogen 18 7-18 mg/dl Creatinine 0.94 0.60-1.20 mg/dl Est Creatinine Clear Calc Drug Dose 56.3 ml/min Estimated GFR () 63.7 Estimated GFR (Non- 54.9 BUN/Creatinine Ratio 19.1 10-20 Random Glucose 114 70-99 mg/dl Calcium Level 9.1 8.5-10.1 mg/dl Magnesium Level 1.6 1.8-2.4 mg/dl Total Bilirubin 0.9 0.2-1 mg/dl Direct Bilirubin 0.3 0-0.2 mg/dl Aspartate Amino Transf (AST/SGOT) 29 15-37 U/L Alanine Aminotransferase (ALT/SGPT) 21 12-78 U/L Alkaline Phosphatase 74 45-117 U/L Total Creatine Kinase 17 26-192 U/L Creatine Kinase MB < 1.0 0.5-3.6 ng/ml Creatine Kinase MB Ratio 0-3.0 Troponin I < 0.015 0-0.045 ng/ml Total Protein 5.6 6.4-8.2 gm/dl Albumin 3.1 3.4-5.0 gm/dl Bedside Lactic Acid Venous 1.31 0.90-1.70 mmol/L Urine Color YELLOW Urine Appearance CLEAR CLEAR Urine pH 7.5 4.5-7.5 Urine Specific [place] 1.008 1.000-1.030 Urine Protein NEG NEG Urine Glucose (UA) NEG NEG Urine Ketones NEG NEG Urine Occult Blood NEG NEG Urine Nitrite NEG NEG Urine Bilirubin NEG NEG Urine Urobilinogen NEG NEG Urine Leukocyte Esterase NEG NEG Urine WBC (Auto) 0 0-5 /hpf Urine RBC (Auto) 0-4 0-4 /hpf Urine Hyaline Casts (Auto) 1-5 0-5 /lpf Urine Epithelial Cells (Auto) 0-5 0-5 /lpf Urine Bacteria (Auto) NEG NEG Microbiology Results 7/22/18 Blood Culture, Received Pending 06/03/18 Blood Culture, Received Pending Diagnostic Radiology trachea midline, air filled, poor inspiratory effort, bibasilar airspace disease , similar to prio EKG SInust tachycardia with PAC, LAD, no acute ischemia Impression Assessment and Plan 87yo female presenting with sepsis most likely secondary to urinary source, possibly pulmonary 1. Sepsis - SIRS 4/, +qSOFA. No evidence of shock at present. Urine vs pulmonary source. Patient received 2.5L NSS in ER -Check urine cultures, blood cultures x 2 sets, rapid flu, sputum culture -Check procalcitonin -Imipenem 500mg IV q 6 (will cover her prior ESBL UTI) -Repeat lactate at 0400 -NSS at 125mL/hr x 2 liters with KCL -Tylenol PRN fever -Zofran PRN nausea 2. Paroxysmal atrial fibrillation - rate controlled, on Xarelto for anticoagulation. No evidence of bleeding -Continue Xarelto 3. Hypertension - presently normotensive. -Continue to monitor -Cozaar recently DCd 4. Gout - stable, chronic -Continue Allopurinol 5. Intertrigo - -Topical nystatin 6. RLS - stable, chronic -Continue Requip 7. Chronic pain - stable, no complaints of pain at this time -Continue Cymbalta, Neurontin and Fentanyl 8. GERD - Prilosec, Zantac 9. F/E/N - NSS at 125mL/hr x 2 L, monitor electrolytes, supplement Mg, regular diet as tolerated, continue MVI, Miralax PRN 10. Ppx - on full dose anticoagulation 11. Code - DNR per discussion iwth patient 12. Dispo - admit to PCU Resuscitation Status DNR VTE Prophylaxis Will order VTE Prophylaxis: Yes
[2018-06-04 01:07] LABS: PHOSPHORUS 1.7 mg/dl (2.5-4.9)
[2018-06-04] MEDS ORDERED: NSS + 20MEQ KCL 1000ML 1,000 ML IV SCH (02:30)
[2018-06-04] MEDS: MAGNESIUM SULFATE 1GM / D5W 100 ML IV SCH ×2 (03:09→04:11)
[2018-06-04 03:45] LABS: INFLUENZA B ANTIGEN Neg for Influ B (NEG)
[2018-06-04] MEDS: IMIPENEM/CILASTATIN IV 300 MG in DEXTROSE 5% 100ML 100 ML IV SCH ×4 (06:12→23:21)
--- NOTE | 2018-06-04 06:42 | DIAGNOSTIC IMAGING REPORT ---
CHEST ONE VIEW PORTABLE HISTORY: 87 years-old Female fever acute fever with shortness of breath COMPARISON: Chest radiograph 05/22/2018, CTA chest 05/22/2018 TECHNIQUE: Portable AP view of the chest FINDINGS: Cardiac silhouette is enlarged. Calcification of the aorta. No pneumothorax or large pleural effusion. Chronic interstitial coarsening is noted with bibasilar and lateral right midlung airspace opacities. No overt pulmonary edema. Degenerative changes of the shoulders and spine. Convex right curvature of the thoracic spine. Probable calcific tendinosis about the right shoulder. Cholecystectomy clips are noted. Fusion hardware of the lumbar spine partially imaged. IMPRESSION: 1. Cardiomegaly without overt pulmonary edema. 2. Chronic interstitial coarsening with bibasilar alveolar opacities suggesting atelectasis or pneumonitis. The above report was generated using voice recognition software. It may contain grammatical, syntax or spelling errors. Electronically signed by: Sixto Breaux M.D. 06/04/2018 6:41 AM Dictated Date/Time: 06/04/2018 6:39 AM
[2018-06-04 08:29] LABS: HEMATOCRIT 32.8 % (37-47); HEMOGLOBIN 10.6 g/dL (12.0-16.0); MEAN CELL VOLUME 108.3 fL (80-100); MEAN CORPUSCULAR HGB CONC 32.3 g/dl (32-36); MEAN PLATELET VOLUME 11.7 fL (7.4-10.4); PLATELET COUNT 167 K/uL (130-400); RED CELL DISTRIBUTION WIDTH CV 17.2 % (11.5-14.5); RED CELL DISTRIBUTION WIDTH SD 67.4 fL (36.4-46.3); WHITE BLOOD COUNT 27.32 K/uL (4.8-10.8)
[2018-06-04] MEDS: NYSTATIN CR 15 GM TUBE EXT SCH ×2 (08:34→20:02)
[2018-06-04] MEDS: TIOTROPIUM BROMIDE 5 PUFF/90 MCG INH INH SCH (08:43)
[2018-06-04] MEDS: FLUTICASONE/SALMETEROL (ADVAIR) 500/50 INH 14 PUFF INH SCH ×2 (08:43→20:02)
[2018-06-04] MEDS: CEROVITE ADV FORMULA TAB PO SCH (08:45)
[2018-06-04] MEDS: ALLOPURINOL 100 MG TAB PO SCH (08:45)
[2018-06-04] MEDS: PANTOprazole SOD 40 MG TAB PO SCH (08:45)
[2018-06-04 08:59] LABS: CALCIUM 8.3 mg/dl (8.5-10.1); CREATININE 1.05 mg/dl (0.60-1.20); POTASSIUM 4.3 mmol/L (3.5-5.1)
[2018-06-04] MEDS ORDERED: ROPINIROLE HCL 0.25 MG TAB PO ONE (13:15)
--- NOTE | 2018-06-04 15:46 | Progress Note ---
Progress Note Date of Service Jun 04, 2018. Progress Note Attending follow up, patient admitted after midnight today. She is feeling better after just several hours of treatment with Imipenem. WBC down very slightly to 27k, procalcitonin up to 16 from 2.5, renal function at baseline appetite intact vitals stable, afebrile 87yo female presenting with sepsis most likely secondary to urinary source, possibly pulmonary 1. Sepsis - SIRS 4/4, +qSOFA. No evidence of shock on admission. Urine vs pulmonary source. Patient received 2.5L NSS in ER blood cultures with no growth thus far procalcitonin up to 16 from 2.5, however, patient feeling much better continue Imipenem 500mg IV q 6 lactate was 1.3 -NSS at 125mL/hr x 2 liters with KCL -Tylenol PRN fever -Zofran PRN nausea 2. Paroxysmal atrial fibrillation - rate controlled, on Xarelto for anticoagulation. No evidence of bleeding -Continue Xarelto 3. Hypertension - presently normotensive. -Continue to monitor -Cozaar recently DCd 4. Gout - stable, chronic -Continue Allopurinol 5. Intertrigo - -Topical nystatin 6. RLS - stable, chronic -Continue Requip 7. Chronic pain - stable, no complaints of pain at this time -Continue Cymbalta, Neurontin and Fentanyl 8. GERD - Prilosec, Zantac 9. F/E/N - NSS at 125mL/hr x 2 L, monitor electrolytes, supplement Mg, regular diet as tolerated, continue MVI, Miralax PRN 10. Ppx - on full dose anticoagulation 11. Code - DNR per discussion iwth patient 12. Dispo - admit to PCU
[2018-06-04] MEDS: RIVAROXABAN TAB 15 MG TAB PO SCH (17:17)
[2018-06-04] MEDS: DULOXETINE (CYMBALTA) 30 MG CAP PO SCH (20:03)
[2018-06-04] MEDS: GABAPENTIN 300 MG CAP PO SCH (20:04)
[2018-06-04] MEDS: ROPINIROLE HCL 1 MG TAB PO SCH (20:06)
[2018-06-04] MEDS: MONTELUKAST SOD 10 MG TAB PO SCH (20:06)
[2018-06-04] MEDS: RANITIDINE HCL 150 MG TAB PO SCH (20:06)
[2018-06-05] VITALS (11 sets, daily range): BP systolic 111–184; BP diastolic 45–97; PULSE 64–98; TEMP 36.2–38.1; O2SAT 92–96
[2018-06-05] MEDS: POLYETHYLENE (MIRALAX) 17 GM PACK PO PRN (05:18)
[2018-06-05] MEDS: IMIPENEM/CILASTATIN IV 300 MG in DEXTROSE 5% 100ML 100 ML IV SCH (05:18)
[2018-06-05 06:47] LABS: HEMATOCRIT 33.4 % (37-47); HEMOGLOBIN 10.9 g/dL (12.0-16.0); MEAN CELL VOLUME 108.1 fL (80-100); MEAN CORPUSCULAR HEMOGLOBIN 35.3 pg (25-34); MEAN CORPUSCULAR HGB CONC 32.6 g/dl (32-36); PLATELET COUNT 158 K/uL (130-400); RED CELL DISTRIBUTION WIDTH CV 17.2 % (11.5-14.5); RED CELL DISTRIBUTION WIDTH SD 67.7 fL (36.4-46.3); WHITE BLOOD COUNT 10.84 K/uL (4.8-10.8)
[2018-06-05 07:22] LABS: CALCIUM 9.3 mg/dl (8.5-10.1); CREATININE 0.95 mg/dl (0.60-1.20); POTASSIUM 3.8 mmol/L (3.5-5.1)
--- NOTE | 2018-06-05 08:52 | Clinical Documentation Query ---
SILVANA Barreto : CLINICAL DOCUMENTATION QUERY Patient is an 87 year old female admitted for evaluation and treatment of sepsis "secondary to urinary source, possibly pulmonary". Although implicit, ICD 10 codes cannot be assigned without explicit documentation of the possible infectious diagnoses. As appropriate, consider documentation as suggested below. Thank you. In your clinical opinion is this patient being managed for: ( ) UTI vs pneumonia ( ) Not Agree Documented today that it is UTI, ESBL ( ) Other explanation of clinical findings (No explanation is considered a No Response) ( ) Unable to determine ( ) Need to Discuss (Phone CDS or qliq) (No discussion is considered a No Response) The medical record reflects the following clinical findings, treatment, and risk factors. Clinical Indicators: As above Treatment: Blood, urine cultures, radiology, IVF, labs, antibiotics Risk Factors: Age, gender Please clarify and document your clinical opinion in the progress notes and discharge summary. Terms such as "probable", "suspected", "likely", "questionable", "possible", or "still to be ruled out" are acceptable. IF IN AGREEMENT, YOU MUST DOCUMENT ABOVE DIAGNOSTIC STATEMENT IN DAILY PROGRESS NOTES AND DISCHARGE SUMMARY. This document is not part of the patient's record. Thank You, Kt Lockett, PEDRO PABLO [phone]
[2018-06-05] MEDS: NYSTATIN CR 15 GM TUBE EXT SCH ×2 (09:34→20:18)
[2018-06-05] MEDS: FLUTICASONE/SALMETEROL (ADVAIR) 500/50 INH 14 PUFF INH SCH ×2 (09:35→20:18)
[2018-06-05] MEDS: ALLOPURINOL 100 MG TAB PO SCH (09:35)
[2018-06-05] MEDS: TIOTROPIUM BROMIDE 5 PUFF/90 MCG INH INH SCH (09:35)
[2018-06-05] MEDS: PANTOprazole SOD 40 MG TAB PO SCH (09:36)
[2018-06-05] MEDS: CEROVITE ADV FORMULA TAB PO SCH (09:36)
--- NOTE | 2018-06-05 09:53 | Progress Note ---
Subjective Date of Service: Jun 05, 2018. Subjective Pt evaluation today including: conversation w/ patient, physical exam, lab review, review of inpatient medication list Pain: no pain PO Intake: adequate Voiding: no voiding problems patient feeling well, sitting up in bed eating well, moved bowels last night, urinating well breathing is at baseline reviewed labs, WBC down to 10k, Cr stable at 0.95 overall she is feeling a lot better Problem List Medical Problems: (1) Acute renal failure Status: Acute (2) Atrial fibrillation with RVR Status: Acute (3) Cellulitis Status: Acute (4) Cellulitis of right leg Status: Acute (5) Cellulitis of right leg Status: Acute (6) Cellulitis of right lower leg Status: Acute (7) Falling Status: Acute (8) Hematuria Status: Acute (9) Left lower lobe pneumonia Status: Acute (10) Low back pain Status: Acute (11) Nausea Status: Acute (12) Pneumonia Status: Acute (13) Pyuria Status: Acute (14) Right arm weakness Status: Acute (15) Stomach problems Status: Chronic (16) Yeast infection of the skin Status: Acute Review of Systems Constitutional: + weakness, + fatigue Respiratory: + dyspnea on exertion All Other Systems: Reviewed and Negative Medications Current Inpatient Medications Medications (Trade) Dose Ordered Sig/Shilpa Route Start Time Stop Time Status Last Admin Dose Admin Acetaminophen (Tylenol Tab) 650 mg Q4H PRN PO 06/04/18 00:30 07/04/18 00:29 Ondansetron HCl (Zofran Inj) 4 mg Q6H PRN IV 06/04/18 00:30 07/04/18 00:29 Polyethylene (Miralax Powder Packet) 17 gm DAILY PRN PO 06/04/18 00:30 07/04/18 00:29 06/05/18 05:18 17 GM Imipenem/ Cilastatin Sodium (Consult) 1 ea UD PRN N/A 06/04/18 00:29 07/04/18 00:28 Imipenem/ Cilastatin Sodium 300 mg/Dextrose 106 ml @ 100 mls/hr Q6H IV 06/04/18 06:00 06/14/18 05:59 06/05/18 05:18 100 MLS/HR Nystatin (Mycostatin Crm) 1 appln BID EXT 06/04/18 09:00 07/04/18 08:59 06/05/18 09:34 1 APPLN Allopurinol (Zyloprim Tab) 100 mg QAM PO 06/04/18 09:00 07/04/18 08:59 06/05/18 09:35 100 MG Duloxetine HCl (Cymbalta Cap) 30 mg HS PO 06/04/18 21:00 07/04/18 20:59 06/04/18 20:03 30 MG Salmeterol Xinafoate/ Fluticasone (Advair Diskus 500/50 Inh) 1 puff BID INH 06/04/18 09:00 07/04/18 08:59 06/05/18 09:35 1 PUFF Gabapentin (Neurontin Cap) 300 mg HS PO 06/04/18 21:00 07/04/18 20:59 06/04/18 20:04 300 MG Montelukast Sodium (Singulair Tab) 10 mg HS PO 06/04/18 21:00 07/04/18 20:59 06/04/18 20:06 10 MG Multivitamins/ Minerals (Multivitamin W/ Minerals Tab) 1 tab QAM PO 06/04/18 09:00 07/04/18 08:59 06/05/18 09:36 1 TAB Oxycodone HCl (Roxicodone Immediate Rel Tab) 5 mg Q6H PRN PO 06/04/18 00:30 06/18/18 00:29 Rivaroxaban (Xarelto Tab) 15 mg QDD PO 06/04/18 16:45 07/04/18 16:44 06/04/18 17:17 15 MG Ropinirole HCl (Requip Tab) 1 mg HS PO 06/04/18 21:00 07/04/18 20:59 06/04/18 20:06 1 MG Tiotropium [place] (Spiriva Handihaler Inhaler) 1 puff DAILY INH 06/04/18 09:00 07/04/18 08:59 06/05/18 09:35 1 PUFF Miscellaneous Information (Order Awaiting Action) 1 ea QS N/A 06/04/18 08:00 07/04/18 07:59 Miscellaneous Information (Order Awaiting Action) 1 ea QS N/A 06/04/18 08:00 07/04/18 07:59 Pantoprazole Sodium (Protonix Tab) 40 mg DAILY PO 06/04/18 09:00 07/04/18 08:59 06/05/18 09:36 40 MG Ranitidine HCl (zANTac TAB) 300 mg HS PO 06/04/18 21:00 07/04/18 20:59 06/04/18 20:06 300 MG Albuterol Sulfate (Ventolin 0.083% 2.5MG/3ML Neb) 2.5 mg Q4 PRN INH 06/04/18 00:30 07/04/18 00:29 Fentanyl (Duragesic Patch) 12 mcg Q3D@0900 TD 06/06/18 09:00 06/20/18 08:59 Miscellaneous (Fentanyl Patch Remove & Waste) 1 ea Q3D@0859 N/A 06/06/18 08:59 07/06/18 08:58 Miscellaneous Information (Check Fentanyl Patch Placement) 1 ea QS N/A 06/06/18 16:00 07/06/18 15:59 Fentanyl (Duragesic Patch) 25 mcg Q3D@0900 TD 06/06/18 09:00 06/20/18 08:59 Miscellaneous (Fentanyl Patch Remove & Waste) 1 ea Q3D@0859 N/A 06/06/18 08:59 07/06/18 08:58 Ropinirole HCl (Requip Tab) 0.5 mg QAM PO 06/05/18 09:00 07/05/18 08:59 Objective Vital Signs Date Time Temp Pulse Resp B/P (MAP) Pulse Ox O2 Delivery O2 Flow Rate FiO2 06/05/18 07:00 36.5 80 18 128/70 (89) 94 3.0 06/05/18 04:06 36.7 64 18 127/54 (78) 95 06/05/18 02:02 82 92 3.0 06/05/18 00:02 36.9 74 18 128/45 (72) 95 06/04/18 22:06 83 93 3.0 06/04/18 20:00 Nasal Cannula 3.0 Humidified Oxygen 06/04/18 19:00 36.7 79 20 131/42 (71) 95 Nasal Cannula 3.0 06/04/18 15:17 36.5 79 20 125/47 (73) 94 Nasal Cannula 3.0 06/04/18 11:02 36.7 85 20 135/51 (79) 94 Nasal Cannula 3.0 Physical Exam General Appearance: no apparent distress, + obese Eyes: normal inspection, EOMI, sclerae normal ENT: normal ENT inspection, hearing grossly normal, pharynx normal Neck: supple, no adenopathy, no JVD, trachea midline Respiratory/Chest: chest non-tender, lungs clear, no respiratory distress, no accessory muscle use, + decreased breath sounds (bases) Cardiovascular: regular rate, rhythm, no edema, no gallop, no JVD, no murmur Abdomen: normal bowel sounds, non tender, soft, no organomegaly Extremities: normal range of motion, non-tender, normal inspection, no pedal edema, no calf tenderness, pelvis stable Neurologic/Psychiatric: motor overhauler II-XII nml as tested, no motor/sensory deficits, alert, normal mood/affect, oriented x 3 Skin: normal color, warm/dry, no rash Laboratory Results Last 24 Hours Test 06/05/18 06:27 White Blood Count 10.84 K/uL Red Blood Count 3.09 M/uL Hemoglobin 10.9 g/dL Hematocrit 33.4 % Mean Corpuscular Volume 108.1 fL Mean Corpuscular Hemoglobin 35.3 pg Mean Corpuscular Hemoglobin Concent 32.6 g/dl Platelet Count 158 K/uL Mean Platelet Volume 12.0 fL RDW Standard Deviation 67.7 fL RDW Coefficient of Variation 17.2 % Neutrophils % (Manual) 73.6 % Lymphocytes % (Manual) 16.7 % Monocytes % (Manual) 7.0 % Eosinophils % (Manual) 0.9 % Myelocytes % 1.8 % Neutrophils # (Manual) 7.98 K/uL Total Absolute Neutrophils 7.98 K/uL Lymphocytes # (Manual) 1.81 K/uL Total Absolute Lymphocytes 1.81 K/uL Monocytes # (Manual) 0.76 K/uL Eosinophils # (Manual) 0.10 K/uL Myelocytes # 0.20 K/uL Sodium Level 142 mmol/L Potassium Level 3.8 mmol/L Chloride Level 111 mmol/L Carbon Dioxide Level 26 mmol/L Anion Gap 5.0 mmol/L Blood Urea Nitrogen 21 mg/dl Creatinine 0.95 mg/dl Est Creatinine Clear Calc Drug Dose 56.1 ml/min Estimated GFR () 62.9 Estimated GFR (Non- 54.2 BUN/Creatinine Ratio 22.0 Random Glucose 111 mg/dl Lactic Acid Level 0.6 mmol/L Calcium Level 9.3 mg/dl Lipase 88 U/L Assessment and Plan 87yo female presenting with sepsis most likely secondary to urinary source, ESBL on outpatient urine culture from 06/01 1. Sepsis - SIRS 02/14, +qSOFA. No evidence of shock on admission. Patient received 2.5L NSS in ER blood cultures with no growth thus far, no growth on urine culture inpatient procalcitonin was up to 16 yesterday, however, patient feeling much better, repeat procalcitonin tomorrow change antibiotics to Ertapenem for once a day dosing, outpatient culture shows sensitivity will get PICC tomorrow, plan for IV antibiotics due to ESBL and failing Macrobid 2. Paroxysmal atrial fibrillation - rate controlled, on Xarelto for anticoagulation. No evidence of bleeding -Continue Xarelto transfer to medical floor 3. RLS - stable, chronic -Continue Requip 4. Gout - stable, chronic -Continue Allopurinol 5. Intertrigo - -Topical nystatin 6. Chronic pain - stable, no complaints of pain at this time -Continue Cymbalta, Neurontin and Fentanyl 7. GERD - Prilosec, Zantac Ppx - on full dose anticoagulation Code - DNR transfer to medical floor, repeat labs in the AM, PT/OT consulted, PICC tomorrow , plan for outpatient Ertapenem 12. Dispo - admit to PCU
[2018-06-05] MEDS: ROPINIROLE HCL 0.25 MG TAB PO SCH (11:02)
[2018-06-05] MEDS: ERTAPENEM IV 1 GM in SODIUM CHLOR 0.9% AD-VAN 50ML 50 ML IV SCH (11:39)
[2018-06-05] MEDS: OXYCODONE HCL IR 5 MG TAB (IMMEDIATE RELEASE) PO PRN ×2 (16:01→22:16)
[2018-06-05] MEDS: RIVAROXABAN TAB 15 MG TAB PO SCH (17:16)
[2018-06-05] MEDS: DULOXETINE (CYMBALTA) 30 MG CAP PO SCH (21:19)
[2018-06-05] MEDS: ROPINIROLE HCL 1 MG TAB PO SCH (21:20)
[2018-06-05] MEDS: RANITIDINE HCL 150 MG TAB PO SCH (21:21)
[2018-06-05] MEDS: GABAPENTIN 300 MG CAP PO SCH (21:21)
[2018-06-05] MEDS: MONTELUKAST SOD 10 MG TAB PO SCH (21:22)
[2018-06-06 07:03] VITALS: BP 155/83; PULSE 74; TEMP 36.5; O2SAT 96
[2018-06-06] MEDS: NYSTATIN CR 15 GM TUBE EXT SCH ×2 (08:04→20:41)
[2018-06-06] MEDS: PANTOprazole SOD 40 MG TAB PO SCH (08:04)
[2018-06-06] MEDS: TIOTROPIUM BROMIDE 5 PUFF/90 MCG INH INH SCH (08:04)
[2018-06-06] MEDS: CEROVITE ADV FORMULA TAB PO SCH (08:04)
[2018-06-06] MEDS: FLUTICASONE/SALMETEROL (ADVAIR) 500/50 INH 14 PUFF INH SCH ×2 (08:04→20:41)
[2018-06-06] MEDS: ALLOPURINOL 100 MG TAB PO SCH (08:05)
[2018-06-06] MEDS: ROPINIROLE HCL 0.25 MG TAB PO SCH (08:05)
[2018-06-06] MEDS: POLYETHYLENE (MIRALAX) 17 GM PACK PO PRN (08:18)
[2018-06-06] MEDS ORDERED: FENTANYL PATCH REMOVE & WASTE SCH ×2 (08:59)
[2018-06-06] MEDS ORDERED: FENTANYL 25 MCG/HR TDSY TD SCH (09:00)
[2018-06-06] MEDS ORDERED: FENTANYL 12 MCG/HR TDSY TD SCH (09:00)
[2018-06-06 09:33] LABS: CALCIUM 9.8 mg/dl (8.5-10.1); CREATININE 0.92 mg/dl (0.60-1.20); POTASSIUM 3.9 mmol/L (3.5-5.1)
[2018-06-06] MEDS: ERTAPENEM IV 1 GM in SODIUM CHLOR 0.9% AD-VAN 50ML 50 ML IV SCH (11:52)
[2018-06-06] MEDS: OXYCODONE HCL IR 5 MG TAB (IMMEDIATE RELEASE) PO PRN (13:49)
[2018-06-06] MEDS ORDERED: INVAV1 IV ×2 (14:41)
--- NOTE | 2018-06-06 14:46 | Discharge Instructions ---
Discharge Instructions Date of Service Jun 06, 2018. Admission Reason for Admission: Sepsis Discharge Discharge Diagnosis / Problem: Sepsis due to ESBL UTI Discharge Goals Goal(s): Improve function, Improve disease control Activity Recommendations Activity Limitations: resume your previous activity . Instructions / Follow-Up Instructions / Follow-Up Medications: - ERTAPENEM: once a day for the next 6 days to complete treatment for ESBL UTI Sepsis due to ESBL UTI, never required pressors, no evidence of shock ESBL was noted on outpatient urine culture drawn 06/01/18 blood cultures with no growth, no growth on urine culture inpatient initially treated with Imipenem, changed to Ertapenem for once a day dosing, outpatient culture shows sensitivity US guided peripheral line placed 06/06 afebrile, normal WBC, procalcitonin down to 4 from 16 complete 6 more days of Ertapenem FOLLOW UP - Dr. Mendez in one week, please call his office to set up a visit - physician at [facility] Current Hospital Diet Patient's current hospital diet: Regular Diet Discharge Diet Recommended Diet: Regular Diet Pending Studies Studies pending at discharge: no Laboratory Results Hemoglobin A1c Test 05/14/18 05:26 Range/Units Estimated Average Glucose 120 mg/dl Hemoglobin A1c 5.8 H 4.5-5.6 % Medical Emergencies . Who to Call and When: Medical Emergencies: If at any time you feel your situation is an emergency, please call 911 immediately. . Non-Emergent Contact Non-Emergency issues call your: Primary Care Provider Call Non-Emergent contact if: you have any medication questions . . "Provider Documentation" section prepared by Lukas Huddleston. . [place] Drug Monitoring Program Search Results: no issues identified
[2018-06-06 15:30] VITALS: BP 168/82; PULSE 95; TEMP 36.5; O2SAT 90
--- NOTE | 2018-06-06 16:18 | Progress Note ---
Subjective Date of Service: Jun 06, 2018. Subjective Pt evaluation today including: conversation w/ patient, conversation w/ family , physical exam, review of inpatient medication list Pain: no pain PO Intake: adequate Voiding: no voiding problems patient doing well, per PT/OT she could return to personal care with home health breathing is at baseline appetite improved, moving her bowels discussed going to [facility] with IV access for Ertapenem x 7 more days Home health able to come in a few times but family would need to administer for 3-4 days unfortunately there is no family that can give the Ertapenem as alterative plan, family and patient requested [facility], they can take the patient tomorrow Problem List Medical Problems: (1) Acute renal failure Status: Acute (2) Atrial fibrillation with RVR Status: Acute (3) Cellulitis Status: Acute (4) Cellulitis of right leg Status: Acute (5) Cellulitis of right leg Status: Acute (6) Cellulitis of right lower leg Status: Acute (7) Falling Status: Acute (8) Hematuria Status: Acute (9) Left lower lobe pneumonia Status: Acute (10) Low back pain Status: Acute (11) Nausea Status: Acute (12) Pneumonia Status: Acute (13) Pyuria Status: Acute (14) Right arm weakness Status: Acute (15) Stomach problems Status: Chronic (16) Yeast infection of the skin Status: Acute Review of Systems Constitutional: + weakness All Other Systems: Reviewed and Negative Medications Current Inpatient Medications Medications (Trade) Dose Ordered Sig/Shilpa Route Start Time Stop Time Status Last Admin Dose Admin Acetaminophen (Tylenol Tab) 650 mg Q4H PRN PO 06/04/18 00:30 07/04/18 00:29 06/06/18 13:04 650 MG Ondansetron HCl (Zofran Inj) 4 mg Q6H PRN IV 06/04/18 00:30 07/04/18 00:29 Polyethylene (Miralax Powder Packet) 17 gm DAILY PRN PO 06/04/18 00:30 07/04/18 00:29 06/06/18 08:18 17 GM Nystatin (Mycostatin Crm) 1 appln BID EXT 06/04/18 09:00 07/04/18 08:59 06/06/18 08:04 1 APPLN Allopurinol (Zyloprim Tab) 100 mg QAM PO 06/04/18 09:00 07/04/18 08:59 06/06/18 08:05 100 MG Duloxetine HCl (Cymbalta Cap) 30 mg HS PO 06/04/18 21:00 07/04/18 20:59 06/05/18 21:19 30 MG Salmeterol Xinafoate/ Fluticasone (Advair Diskus 500/50 Inh) 1 puff BID INH 06/04/18 09:00 07/04/18 08:59 06/06/18 08:04 1 PUFF Gabapentin (Neurontin Cap) 300 mg HS PO 06/04/18 21:00 07/04/18 20:59 06/05/18 21:21 300 MG Montelukast Sodium (Singulair Tab) 10 mg HS PO 06/04/18 21:00 07/04/18 20:59 06/05/18 21:22 10 MG Multivitamins/ Minerals (Multivitamin W/ Minerals Tab) 1 tab QAM PO 06/04/18 09:00 07/04/18 08:59 06/06/18 08:04 1 TAB Oxycodone HCl (Roxicodone Immediate Rel Tab) 5 mg Q6H PRN PO 06/04/18 00:30 06/18/18 00:29 06/06/18 13:49 5 MG Rivaroxaban (Xarelto Tab) 15 mg QDD PO 06/04/18 16:45 07/04/18 16:44 06/05/18 17:16 15 MG Ropinirole HCl (Requip Tab) 1 mg HS PO 06/04/18 21:00 07/04/18 20:59 06/05/18 21:20 1 MG Tiotropium [place] (Spiriva Handihaler Inhaler) 1 puff DAILY INH 06/04/18 09:00 07/04/18 08:59 06/06/18 08:04 1 PUFF Miscellaneous Information (Order Awaiting Action) 1 ea QS N/A 06/04/18 08:00 07/04/18 07:59 Miscellaneous Information (Order Awaiting Action) 1 ea QS N/A 06/04/18 08:00 07/04/18 07:59 Pantoprazole Sodium (Protonix Tab) 40 mg DAILY PO 06/04/18 09:00 07/04/18 08:59 06/06/18 08:04 40 MG Ranitidine HCl (zANTac TAB) 300 mg HS PO 06/04/18 21:00 07/04/18 20:59 06/05/18 21:21 300 MG Albuterol Sulfate (Ventolin 0.083% 2.5MG/3ML Neb) 2.5 mg Q4 PRN INH 06/04/18 00:30 07/04/18 00:29 Fentanyl (Duragesic Patch) 12 mcg Q3D@0900 TD 06/06/18 09:00 06/20/18 08:59 06/06/18 08:20 12 MCG Miscellaneous (Fentanyl Patch Remove & Waste) 1 ea Q3D@0859 N/A 06/06/18 08:59 07/06/18 08:58 06/06/18 08:27 1 EA Miscellaneous Information (Check Fentanyl Patch Placement) 1 ea QS N/A 06/06/18 16:00 07/06/18 15:59 Fentanyl (Duragesic Patch) 25 mcg Q3D@0900 TD 06/06/18 09:00 06/20/18 08:59 06/06/18 08:19 25 MCG Miscellaneous (Fentanyl Patch Remove & Waste) 1 ea Q3D@0859 N/A 06/06/18 08:59 07/06/18 08:58 Ropinirole HCl (Requip Tab) 0.5 mg QAM PO 06/05/18 09:00 07/05/18 08:59 06/06/18 08:05 0.5 MG Ertapenem 1 gm/ Sodium Chloride 50 ml @ 120 mls/hr Q24H IV 06/05/18 12:00 06/15/18 11:59 06/06/18 11:52 120 MLS/HR Objective Vital Signs Date Time Temp Pulse Resp B/P (MAP) Pulse Ox O2 Delivery O2 Flow Rate FiO2 06/06/18 15:30 36.5 95 20 168/82 (110) 90 Room Air 06/06/18 09:38 Nasal Cannula 2.0 06/06/18 07:03 36.5 74 18 155/83 (107) 96 Nasal Cannula 2.0 06/05/18 23:03 36.2 80 18 136/97 (110) 95 Nasal Cannula 3.0 06/05/18 22:22 76 93 3.0 06/05/18 20:37 36.6 16 136/97 (110) 95 Nasal Cannula 3.0 06/05/18 20:30 Nasal Cannula 3.0 Physical Exam General Appearance: no apparent distress, + obese ENT: normal ENT inspection, hearing grossly normal, pharynx normal Neck: supple, no adenopathy, no JVD, trachea midline Respiratory/Chest: chest non-tender, lungs clear, normal breath sounds, no respiratory distress, no accessory muscle use Cardiovascular: regular rate, rhythm, no edema, no gallop, no JVD, no murmur Abdomen: normal bowel sounds, non tender, soft, no organomegaly Extremities: non-tender, normal inspection, no pedal edema, no calf tenderness Neurologic/Psychiatric: superintendent nonselling II-XII nml as tested, no motor/sensory deficits, alert, normal mood/affect, oriented x 3 Skin: normal color, warm/dry, no rash Laboratory Results Last 24 Hours Test 06/06/18 08:45 Sodium Level 141 mmol/L Potassium Level 3.9 mmol/L Chloride Level 110 mmol/L Carbon Dioxide Level 26 mmol/L Anion Gap 5.0 mmol/L Blood Urea Nitrogen 18 mg/dl Creatinine 0.92 mg/dl Est Creatinine Clear Calc Drug Dose 57.7 ml/min Estimated GFR () 65.3 Estimated GFR (Non- 56.4 BUN/Creatinine Ratio 19.0 Random Glucose 134 mg/dl Calcium Level 9.8 mg/dl Assessment and Plan 87yo female presenting with sepsis most likely secondary to urinary source, ESBL on outpatient urine culture from 06/01 1. Sepsis - SIRS 4/4, +qSOFA. No evidence of shock on admission. Patient received 2.5L NSS in ER blood cultures with no growth thus far, no growth on urine culture inpatient change antibiotics to Ertapenem for once a day dosing, outpatient culture shows sensitivity US guided peripheral line placed today by IV team plan for [facility] tomorrow, already accepted will need 6 more days of Ertapenem 2. Paroxysmal atrial fibrillation - rate controlled, on Xarelto for anticoagulation. No evidence of bleeding -Continue Xarelto 3. RLS - stable, chronic -Continue Requip 4. Gout - stable, chronic -Continue Allopurinol 5. Intertrigo - -Topical nystatin 6. Chronic pain - stable, no complaints of pain at this time -Continue Cymbalta, Neurontin and Fentanyl 7. GERD - Prilosec, Zantac Ppx - on full dose anticoagulation Code - DNR
[2018-06-06] MEDS: CHECK FENTANYL PATCH PLACEMENT SCH (16:19)
[2018-06-06] MEDS: RIVAROXABAN TAB 15 MG TAB PO SCH (17:34)
[2018-06-06] MEDS: DULOXETINE (CYMBALTA) 30 MG CAP PO SCH (20:41)
[2018-06-06] MEDS: GABAPENTIN 300 MG CAP PO SCH (20:42)
[2018-06-06] MEDS: ROPINIROLE HCL 1 MG TAB PO SCH (20:42)
[2018-06-06] MEDS: MONTELUKAST SOD 10 MG TAB PO SCH (20:42)
[2018-06-06] MEDS: RANITIDINE HCL 150 MG TAB PO SCH (20:42)
[2018-06-06 20:43] VITALS: BP 128/71; PULSE 75; TEMP 36.7; O2SAT 94
[2018-06-07 00:13] VITALS: BP 158/78; PULSE 85; TEMP 36.3; O2SAT 92
[2018-06-07] MEDS: CHECK FENTANYL PATCH PLACEMENT SCH ×2 (00:25→08:00)
[2018-06-07 03:48] VITALS: BP 121/71; PULSE 74; TEMP 36.3; O2SAT 98
[2018-06-07 07:35] VITALS: BP 126/72; PULSE 81; TEMP 36.9; O2SAT 91
[2018-06-07 07:40] LABS: BASO % 0.3 %; BASO ABS # 0.02 K/uL (0-0.2); EOS % 3.2 %; EOS ABS # 0.23 K/uL (0-0.5); HEMATOCRIT 34.4 % (37-47); HEMOGLOBIN 11.3 g/dL (12.0-16.0); IG# 0.18 K/uL (0.00-0.02); LYMPH % 36.9 %; LYMPH ABS # 2.67 K/uL (1.2-3.4); MEAN CELL VOLUME 106.8 fL (80-100); MEAN CORPUSCULAR HEMOGLOBIN 35.1 pg (25-34); MEAN CORPUSCULAR HGB CONC 32.8 g/dl (32-36); MEAN PLATELET VOLUME 12.1 fL (7.4-10.4); MONO % 14.1 %; MONO ABS # 1.02 K/uL (0.11-0.59); NEUT ABS # 3.11 K/uL (1.4-6.5); PLATELET COUNT 164 K/uL (130-400); RED CELL DISTRIBUTION WIDTH CV 16.6 % (11.5-14.5); RED CELL DISTRIBUTION WIDTH SD 64.6 fL (36.4-46.3); WHITE BLOOD COUNT 7.23 K/uL (4.8-10.8)
[2018-06-07] MEDS: TIOTROPIUM BROMIDE 5 PUFF/90 MCG INH INH SCH (08:05)
[2018-06-07] MEDS: NYSTATIN CR 15 GM TUBE EXT SCH (08:05)
[2018-06-07] MEDS: FLUTICASONE/SALMETEROL (ADVAIR) 500/50 INH 14 PUFF INH SCH (08:05)
[2018-06-07] MEDS: CEROVITE ADV FORMULA TAB PO SCH (08:05)
[2018-06-07] MEDS: PANTOprazole SOD 40 MG TAB PO SCH (08:05)
[2018-06-07] MEDS: ALLOPURINOL 100 MG TAB PO SCH (08:07)
[2018-06-07] MEDS: ROPINIROLE HCL 0.25 MG TAB PO SCH (08:07)
[2018-06-07 08:15] LABS: CALCIUM 9.8 mg/dl (8.5-10.1); CREATININE 0.87 mg/dl (0.60-1.20); POTASSIUM 3.9 mmol/L (3.5-5.1)
[2018-06-07 11:18] VITALS: BP 119/73; PULSE 68; TEMP 36.4; O2SAT 97
[2018-06-07] MEDS: ERTAPENEM IV 1 GM in SODIUM CHLOR 0.9% AD-VAN 50ML 50 ML IV SCH (11:43)
--- NOTE | 2018-06-07 11:47 | Discharge Summary ---
Discharge Summary Date of Service Jun 07, 2018. Discharge Summary Admission Date: Jun 04, 2018 at 00:49 Discharge Date: Jun 07, 2018 Discharge Disposition: Rehab Principal Diagnosis: ESBL causing sepsis Problems/Secondary Diagnoses: Paroxysmal atrial fibrillation Restless leg syndrome Immunizations: Have You Had Influenza Vaccine: Yes Influenza Vaccine Date: Aug 20, 2010 History of Tetanus Vaccine?: UNSURE History of Pneumococcal: Yes Pneumococcal Date: Aug 13, 2008 History of Hepatitis B Vaccine: Unknown Procedures: none Consultations: none Medication Reconciliation New Medications: Ertapenem (Invanz) 1 Gm Inj 1 GM IV DAILY for 7 Days, #7 DOSE 0 Refills Continued Medications: Acetaminophen (Tylenol) 325 Mg Tab 325-650 MG PO Q6 PRN for Pain Albuterol Sulfate (Proair Respiclick) 108 Mcg/Act Aer 2 PUFFS INH Q4H PRN for Shortness of Breath Allopurinol (Zyloprim) 100 Mg Tab 100 MG PO QAM Azelastine Hcl (Astelin Nasal [place]) 200 Sprays/30 Ml [place] 2 SPRAYS TEOFILO BID Calcium Carbonate-Vitamin D (Oyster Shell Calcium/D3 500-400 mg-Unit) 1 Tab Tab 1 TAB PO BID Cyclosporine (Ophth) (Restasis) 0.05 % Emu 1 DROP OP BID Duloxetine HCl (Cymbalta) 30 Mg Cap 30 MG PO HS Fentanyl (Fentanyl) 37.5 Mcg/Hr Dis 37.5 MCG TD Q72H Fluticasone Prop/Salmeterol (Advair Diskus 500/50 60 Dose) 1 Ea Aerp 1 PUFFS INH BID Fluticasone Propionate (Nasal) (Flonase Allergy Relief) 50 Mcg/Act Spr 2 SPRAYS TEOFILO DAILY Gabapentin (Neurontin) 300 Mg Cap 300 MG PO HS, CAP Montelukast Sodium (Singulair) 10 Mg Tab 10 MG PO HS Multiple Vitamins W/ Minerals (Centrum) 1 Tab Tab 1 TAB PO QAM Omeprazole (Prilosec) 20 Mg Capcr 20 MG PO DAILY Ondansetron (Ondansetron HCl) 4 Mg Tab 4 MG PO Q6H PRN for Nausea Oxycodone Ir (Roxicodone Ir) 5 Mg Tab 5 MG PO Q6H PRN for Pain Polyethylene Glycol 3350 (Miralax) 1 Pow Pow 17 GM PO DAILY Ranitidine (Zantac) 300 Mg Tab 300 MG PO HS Rivaroxaban (Xarelto) 15 Mg Tab 15 MG PO QAM TAKE WITH THE LARGEST MEAL OF THE DAY. Ropinirole HCl (Ropinirole HCl) 1 Mg Tab 1 TAB PO HS Tiotropium [place] (Spiriva Handihaler) 30 Puff/540 Mcg Aerp 1 CAP INH DAILY for 30 Days, #30 CAP 3 Refills Discontinued Medications: Ciprofloxacin (Ciprofloxacin HCl) 500 Mg Tab 500 MG PO BID for 6 Days Discharge Exam Patient feeling well, OOB in wheelchair, breathing stable. Eating well, feels like her strength is improving. Feels ready to go to rehab. Discussed with CM , will set up transport for after her dose of Ertapenem at noon. Review of Systems: Constitutional: + weakness, + fatigue, No fever, No chills, No sweats, No weight loss, No problem reported Respiratory: No cough, No sputum, No wheezing, No shortness of breath, No dyspnea on exertion, No dyspnea at rest, No hemoptysis, No problem reported Cardiovascular: No chest pain, No orthopnea, No PND, No edema, No claudication, No palpitations, No problem reported Abdomen: No pain, No nausea, No vomiting, No diarrhea, No constipation, No GI bleeding, No problem reported Musculoskeletal: No joint pain, No muscle pain, No swelling, No calf pain, No problem reported Genitourinary - Female: No dysuria, No urinary frequency, No urinary urgency , No urinary incontinence, No urinary retention, No hematuria Neurologic: + weakness (generalized), No memory loss, No paralysis, No numbness/tingling, No vertigo, No balance problems, No problem reported Psychiatric: No depression symptoms, No anhedonism, No anxiety, No insomnia , No substance abuse, No problem reported Endocrine: No fatigue, No excessive thirst, No excessive urination, No problem reported Hematologic / Lymphatic: No abnormal bleeding/bruising, No clotting problems , No swollen lymph nodes, No night sweats, No problem reported Integumentary: No rash, No itch, No new/changing skin lesions, No color change, No bleeding, No problem reported Physical Exam: General Appearance: no apparent distress, + obese Eyes: normal inspection, EOMI, sclerae normal ENT: normal ENT inspection, hearing grossly normal, pharynx normal Neck: supple, no adenopathy, no JVD, trachea midline Respiratory/Chest: chest non-tender, lungs clear, normal breath sounds, no respiratory distress, no accessory muscle use Cardiovascular: regular rate, rhythm, no edema, no gallop, no JVD, no murmur , normal peripheral pulses Abdomen / GI: normal bowel sounds, non tender, soft, no organomegaly Extremities: normal inspection, no calf tenderness, normal capillary refill , no pedal edema, normal range of motion, pelvis stable Neurologic/Psychiatric: 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 Sepsis - SIRS 02/14, +qSOFA. No evidence of shock on admission. Patient received 2.5L NSS in ER outpatient urine culture grew ESBL, sensitive to Ertapenem blood cultures with no growth thus far, no growth on urine culture inpatient initially treated with Imipenem, changed antibiotics to Ertapenem for once a day dosing US guided peripheral line placed 06/06 by IV team plan for [facility] today will need 6 more days of Ertapenem 2. Paroxysmal atrial fibrillation - rate controlled, on Xarelto for anticoagulation. No evidence of bleeding -Continue Xarelto, continue Diltiazem 3. RLS - stable, chronic -Continue Requip which is 1mg HS and 0.5mg AM 4. Gout - stable, chronic -Continue Allopurinol 5. Intertrigo - -Topical nystatin 6. Chronic pain - stable, no complaints of pain at this time -Continue Cymbalta, Neurontin and Fentanyl 7. GERD - Prilosec, Zantac Ppx - on full dose anticoagulation Code - DNR Total Time Spent: Greater than 30 minutes This includes examination of the patient, discharge planning, medication reconciliation, and communication with other providers. Discharge Instructions Please refer to the electronic Patient Visit Report (Discharge Instructions) for additional information. Follow-Up physician at [facility] Dr. Mendez in one week after d/c from rehab Additional Copies To Tereso Mendez M.D.; [facility]
== END 2018-06-07 14:58 | DRG 872 ==
LOC: EDBD 22:41 → C.EDB 22:42 → C.2E 06-04 00:49 → ENRESERV 06-04 00:56 → C.MS4W 06-05 11:27
PROVIDERS: ADMIT Internal Medicine; ATTEND Internal Medicine
DX: A41.9 Sepsis, unspecified organism (principal); N39.0 Urinary tract infection, site not specified; I12.9 Hypertensive chronic kidney disease with stage 1 through stage 4 chronic kidney disease, or unspecified chronic kidney disease; N18.3 Chronic kidney disease, stage 3 (moderate); I48.0 Paroxysmal atrial fibrillation; M10.9 Gout, unspecified; K21.9 Gastro-esophageal reflux disease without esophagitis; L30.4 Erythema intertrigo; G25.81 Restless legs syndrome; Z66 Do not resuscitate; Z79.01 Long term (current) use of anticoagulants; Z79.899 Other long term (current) drug therapy; Z87.01 Personal history of pneumonia (recurrent)

== ENCOUNTER → 2018-06-23 | Outpatient (CLI) | payer OTHER, BC ==
[~2018-06-23] MED LIST changes: -CEFD1CAP14 PO; -CPR/500 PO; +INVAV1 IV
== END | disposition home or self-care (01) ==
LOC: C.LABSPEC 11:43
PROVIDERS: ATTEND Family Medicine
DX: R39.9 Unspecified symptoms and signs involving the genitourinary system (principal)

== ENCOUNTER 2018-07-06 14:21 | Inpatient (IN) | payer OTHER, BC ==
[~2018-07-06] VITALS: Ht 167.6 cm; Wt 119.1 kg
[2018-07-06] MEDS ORDERED: SODIUM CHLORIDE 0.9% 1000ML 500 ML IV STA (14:56)
[2018-07-06] MEDS ORDERED: IMIPENEM/CILASTATIN IV 500 MG in DEXTROSE 5% 100ML 100 ML IV STA (14:56)
[2018-07-06] MEDS ORDERED: ALBUT/IPRATROP 3MG/0.5MG NEB 3 ML VIAL INH STA (14:56)
[2018-07-06] MEDS ORDERED: ONDANSETRON INJ 2 MG/ML 2 ML VIAL IV STA (14:56)
[2018-07-06] MEDS ORDERED: METHYLPREDNISOLONE 125 MG VIAL IV STA (14:56)
[2018-07-06 15:09] VITALS: PULSE 82; O2SAT 99
--- NOTE | 2018-07-06 15:14 | DIAGNOSTIC IMAGING REPORT ---
CHEST ONE VIEW PORTABLE CLINICAL HISTORY: Respiratory distress COMPARISON STUDY: 06/03/2018 FINDINGS: The heart remains borderline enlarged. There is aortic tortuosity/ectasia. There is chronic basilar interstitial thickening. There is no overt failure. There are no significant pleural effusions.[ Arthritic changes are present within the shoulders. IMPRESSION: 1. Mild cardiomegaly. No evidence of overt failure. 2. Chronic basilar interstitial thickening Electronically signed by: Tyshawn Anguiano M.D. 07/06/2018 3:13 PM Dictated Date/Time: 07/06/2018 3:12 PM
[2018-07-06 15:17] VITALS: PULSE 82; O2SAT 99
[2018-07-06 15:31] VITALS: PULSE 83; O2SAT 96
[2018-07-06 15:38] LABS: BASO % 0.3 %; BASO ABS # 0.04 K/uL (0-0.2); EOS % 1.8 %; EOS ABS # 0.23 K/uL (0-0.5); HEMATOCRIT 33.5 % (37-47); IG# 0.18 K/uL (0.00-0.02); LYMPH % 18.8 %; LYMPH ABS # 2.35 K/uL (1.2-3.4); MEAN CELL VOLUME 107.7 fL (80-100); MEAN CORPUSCULAR HEMOGLOBIN 35.4 pg (25-34); MEAN CORPUSCULAR HGB CONC 32.8 g/dl (32-36); MEAN PLATELET VOLUME 12.5 fL (7.4-10.4); MONO % 14.6 %; MONO ABS # 1.83 K/uL (0.11-0.59); NEUT % 63.1 %; NEUT ABS # 7.87 K/uL (1.4-6.5); PLATELET COUNT 213 K/uL (130-400); RED CELL DISTRIBUTION WIDTH CV 16.3 % (11.5-14.5); RED CELL DISTRIBUTION WIDTH SD 63.4 fL (36.4-46.3)
[2018-07-06 16:07] LABS: ALBUMIN 2.6 gm/dl (3.4-5.0); ALKALINE PHOSPHATASE 100 U/L (45-117); ALT/SGPT 37 U/L (12-78); AST/SGOT 28 U/L (15-37); BLOOD UREA NITROGEN 24 mg/dl (7-18); CALCIUM 10.3 mg/dl (8.5-10.1); CARBON DIOXIDE 27 mmol/L (21-32); CREATININE 0.98 mg/dl (0.60-1.20); GLUCOSE 122 mg/dl (70-99); POTASSIUM 4.5 mmol/L (3.5-5.1); SODIUM 143 mmol/L (136-145); TOTAL PROTEIN 5.3 gm/dl (6.4-8.2)
[2018-07-06] MEDS ORDERED: MAGNESIUM SULFATE 1GM / D5W 1 GM BAG IV STA (16:57)
[2018-07-06 17:17] LABS: INR 1.3 (0.9-1.1)
--- NOTE | 2018-07-06 17:37 | History and Physical ---
History & Physical Date & Time of Service: Jul 06, 2018 at 17:28 Chief Complaint: SOB, Primary Care Physician: Tereso Mendez M.D. History of Present Illness Source: patient, hospital records, other 87 y/o F Hx paroxysmal AF, CARLITOS, CKD III, gout, chronic back pain - opiate dependence, asthma/COPD. Presents with progressive SOB. The pt was hypoxic on arrival to the ER. She denies a productive cough or fever. Incidentally, she states that fell out of bed 2 days ago and feels as though she injured her L rib cage. Past Medical/Surgical History 1) COPD 2) CARLITOS - CPAP 3) CKD III 4) Gout 5) ESBL UTI 6) Paroxysmal atrial fibrillation 7) Morbidly obese 8) Chronic back pain - opioid-dependence 9) Urinary incontinence Surgical: 1) Mastectomy 2) Back surgery 3) Appendectomy 4) Hernia repair 5) Hysterectomy 6) Resection of liver hemangioma 7) R TKA Family History Cancer Diabetes mellitus FH: heart disease FHx: gallbladder disease FHx: lung disease Hypertension Social History Smoking Status: Never Smoker Drug Use: none Marital Status: single Housing status: lives alone Occupational Status: retired Immunizations History of Influenza Vaccine: Yes Influenza Vaccine Date: Aug 20, 2010 History of Tetanus Vaccine?: UNSURE History of Pneumococcal: Yes Pneumococcal Date: Aug 13, 2008 History of Hepatitis B Vaccine: Unknown Allergies Coded Allergies: Enoxaparin (Verified Allergy, Intermediate, RASH, PRURITUS, 06/04/18) Home Medications Scheduled Allopurinol (Zyloprim), 100 MG PO QAM Azelastine Hcl (Astelin Nasal [place]), 2 SPRAYS TEOFILO BID Calcium Carbonate-Vitamin D (Oyster Shell Calcium/D3 500-400 mg-Unit), 1 TAB PO BID Cyclosporine (Ophth) (Restasis), 1 DROP OP BID Duloxetine HCl (Cymbalta), 30 MG PO HS Fentanyl (Fentanyl), 37.5 MCG TD Q72H Fluticasone Prop/Salmeterol (Advair Diskus 500/50 60 Dose), 1 PUFFS INH BID Fluticasone Propionate (Nasal) (Flonase Allergy Relief), 2 SPRAYS TEOFILO DAILY Gabapentin (Neurontin), 300 MG PO HS Montelukast Sodium (Singulair), 10 MG PO HS Multiple Vitamins W/ Minerals (Centrum), 1 TAB PO QAM Omeprazole (Prilosec), 20 MG PO DAILY Ranitidine (Zantac), 300 MG PO HS Rivaroxaban (Xarelto), 15 MG PO QAM Ropinirole HCl (Ropinirole HCl), 1 TAB PO HS Tiotropium [place] (Spiriva Handihaler), 1 CAP INH DAILY Scheduled PRN Acetaminophen (Tylenol), 325-650 MG PO Q6 PRN for Pain Albuterol Sulfate (Proair Respiclick), 2 PUFFS INH Q4H PRN for Shortness of Breath Oxycodone Ir (Roxicodone Ir), 5 MG PO Q6H PRN for Pain Review of Systems Constitutional: No fever, No chills, No sweats Eyes: No worsening of vision ENT: No hearing loss, No nasal symptoms Respiratory: + shortness of breath, + dyspnea on exertion, + dyspnea at rest, No cough Cardiovascular: + chest pain (L rib pain owing to trauma) Abdomen: No pain, No nausea Musculoskeletal: + joint pain (chronic back pain) Genitourinary - Female: + urinary incontinence (chronic), No dysuria Neurologic: No memory loss, No paralysis, No weakness Psychiatric: No depression symptoms Endocrine: No fatigue Hematologic / Lymphatic: No abnormal bleeding/bruising Integumentary: No rash Allergic / Immunologic: No environmental allergies Physical Exam Vital Signs Date Time Temp Pulse Resp B/P (MAP) Pulse Ox O2 Delivery O2 Flow Rate FiO2 07/06/18 16:32 93 07/06/18 16:30 133/67 07/06/18 16:28 89 28 91 BiPAP 07/06/18 16:01 94 BiPAP 07/06/18 16:00 118/72 07/06/18 15:58 85 19 95 BiPAP 07/06/18 15:50 74 22 131/78 95 BiPAP 07/06/18 15:31 83 20 96 BiPAP/CPAP 30 07/06/18 15:29 97 BiPAP 07/06/18 15:09 82 99 30 07/06/18 14:43 88 07/06/18 14:24 36.8 90 20 126/64 89 Nasal Cannula 3.0 General Appearance: WD/WN, + pertinent finding (Morbidly obese, elderly female - wearing BiPAP - no distress - completing sentences ) Head: normocephalic Eyes: normal inspection ENT: normal ENT inspection, pharynx normal Neck: supple, + pertinent finding (cannot evaluate JVD due to habitus ) Respiratory/Chest: + pertinent finding (Chest is tender over L lower ribs - Very poor air movement BL - no clear crackles - exam is limited by habitus and large air noises) Cardiovascular: regular rate, rhythm, no murmur Abdomen/GI: normal bowel sounds, non tender, soft Back: normal inspection, no CVA tenderness Extremities/Musculoskelatal: + pedal edema Neurologic/Psych: 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 nml as tested, no motor/sensory deficits, alert, oriented x 3 Skin: normal color, warm/dry Diagnostics Laboratory Results Results Past 24 Hours Test 07/06/18 15:15 07/06/18 15:29 07/06/18 15:43 07/06/18 16:30 Range/Units White Blood Count 12.50 4.8-10.8 K/uL Red Blood Count 3.11 4.2-5.4 M/uL Hemoglobin 11.0 12.0-16.0 g/dL Hematocrit 33.5 37-47 % Mean Corpuscular Volume 107.7 80-100 fL Mean Corpuscular Hemoglobin 35.4 25-34 pg Mean Corpuscular Hemoglobin Concent 32.8 32-36 g/dl Platelet Count 213 130-400 K/uL Mean Platelet Volume 12.5 7.4-10.4 fL Neutrophils (%) (Auto) 63.1 % Lymphocytes (%) (Auto) 18.8 % Monocytes (%) (Auto) 14.6 % Eosinophils (%) (Auto) 1.8 % Basophils (%) (Auto) 0.3 % Neutrophils # (Auto) 7.87 1.4-6.5 K/uL Lymphocytes # (Auto) 2.35 1.2-3.4 K/uL Monocytes # (Auto) 1.83 0.11-0.59 K/uL Eosinophils # (Auto) 0.23 0-0.5 K/uL Basophils # (Auto) 0.04 0-0.2 K/uL RDW Standard Deviation 63.4 36.4-46.3 fL RDW Coefficient of Variation 16.3 11.5-14.5 % Immature Granulocyte % (Auto) 1.4 % Immature Granulocyte # (Auto) 0.18 0.00-0.02 K/uL Sodium Level 143 136-145 mmol/L Potassium Level 4.5 3.5-5.1 mmol/L Chloride Level 108 98-107 mmol/L Carbon Dioxide Level 27 21-32 mmol/L Anion Gap 8.0 3-11 mmol/L Blood Urea Nitrogen 24 7-18 mg/dl Creatinine 0.98 0.60-1.20 mg/dl Est Creatinine Clear Calc Drug Dose 53.1 ml/min Estimated GFR () 60.5 Estimated GFR (Non- 52.2 BUN/Creatinine Ratio 24.9 10-20 Random Glucose 122 70-99 mg/dl Calcium Level 10.3 8.5-10.1 mg/dl Magnesium Level 1.7 1.8-2.4 mg/dl Total Bilirubin 0.3 0.2-1 mg/dl Aspartate Amino Transf (AST/SGOT) 28 15-37 U/L Alanine Aminotransferase (ALT/SGPT) 37 12-78 U/L Alkaline Phosphatase 100 45-117 U/L Troponin I < 0.015 0-0.045 ng/ml Total Protein 5.3 6.4-8.2 gm/dl Albumin 2.6 3.4-5.0 gm/dl Globulin 2.7 2.5-4.0 gm/dl Albumin/Globulin Ratio 1.0 0.9-2 Chemistry Specimen Hemolysis Venous Blood pH 7.40 7.36-7.41 Venous Blood Partial Pressure CO2 49 38.0-50.0 mmHg Venous Blood Partial Pressure O2 36 mmHg Venous Blood HCO3 30 mmol/L Venous Blood Oxygen Saturation 66.0 % Venous Blood Base Excess 3.8 mEq/L Lactic Acid Level 1.7 0.4-2.0 mmol/L Urine Color YELLOW Urine Appearance CLEAR CLEAR Urine pH 7.0 4.5-7.5 Urine Specific [place] 1.011 1.000-1.030 Urine Protein NEG NEG Urine Glucose (UA) NEG NEG Urine Ketones NEG NEG Urine Occult Blood NEG NEG Urine Nitrite NEG NEG Urine Bilirubin NEG NEG Urine Urobilinogen NEG NEG Urine Leukocyte Esterase NEG NEG Test 07/06/18 16:54 Range/Units Prothrombin Time 13.5 9.0-12.0 SECONDS Prothromb Time International Ratio 1.3 0.9-1.1 Activated Partial Thromboplast Time 35.0 21.0-31.0 SECONDS Partial Thromboplastin Ratio 1.3 Microbiology Results 07/06/18 Blood Culture, Received Pending 07/06/18 Blood Culture, Received Pending Diagnostic Radiology CXR: 1. Mild cardiomegaly. No evidence of overt failure. 2. Chronic basilar interstitial thickening Normal EKG Impression Assessment and Plan 87 y/o F Hx paroxysmal AF, CARLITOS, CKD III, gout, chronic back pain - opiate dependence, asthma/COPD. Presents with progressive SOB. The pt was hypoxic on arrival to the ER. She denies a productive cough or fever. Incidentally, she states that fell out of bed 2 days ago and feels as though she injured her L rib cage. 1) COPD / asthma exacerbation - placed on Dunebs/albuterol, IV steroids, abx and an [address] the pt's chest to r/o PNM and rib fractures. 2) CARLITOS - CPAP ordered HS 3) Chronic pain - continue narcotics as prescribed 4) CKD III - renal function is at baseline 5) Gout - cont Allopurinol 6) Paroxysmal AF - sinus on admission - cont Xarelto Full code - Xarelto prophylaxis Total time for this admit including review of labs, meds, imaging, records - discussion with pt and ER attending - 38 min Resuscitation Status VTE Prophylaxis Will order VTE Prophylaxis: Yes
[2018-07-06] MEDS ORDERED: ONDANSETRON INJ 2 MG/ML 2 ML VIAL IV PRN (17:45)
[2018-07-06] MEDS ORDERED: POLYETHYLENE (MIRALAX) 17 GM PACK PO PRN (17:45)
[2018-07-06] MEDS ORDERED: ALUMINUM/MAGNESIUM/SIMETH (MAALOX MAX) 30 ML UDC PO PRN (17:45)
[2018-07-06] MEDS ORDERED: ALBUTEROL 0.083% NEBU SOLN 3 ML VIAL INH PRN (17:45)
[2018-07-06] MEDS ORDERED: OXYCODONE HCL IR 5 MG TAB (IMMEDIATE RELEASE) PO PRN (17:45)
[2018-07-06] MEDS ORDERED: MAGNESIUM HYDROXIDE SUSP 30 ML UDC PO PRN (17:45)
[2018-07-06] MEDS ORDERED: NON-FORMULARY MEDICATION (Fentanyl 37.5 MCG) TD SCH (17:45)
[2018-07-06] MEDS ORDERED: NITROGLYCERIN 0.4 MG SL PER TAB CHARGE SL PRN (17:45)
--- NOTE | 2018-07-06 19:27 | EMERGENCY ROOM VISIT NOTE ---
History Report prepared by Pablo: Mansoor Henriquez Under the Supervision of: Dr. Jayson Nelson M.D. First contact with patient: 14:49 Chief Complaint: SHORTNESS OF BREATH Stated Complaint: SOB, History of Present Illness The patient is a 87 year old female who presents to the Emergency Room with complaints of shortness of breath worsening today. The patient reports that she has not felt well over the past few days, but states that today she experienced worsening shortness of breath and abdominal pain. She states that she was going to see her doctor for this, but felt her symptoms were severe enough to report to the ER. The patient notes some swelling to her legs that is no different from baseline. She reports that she regularly uses oxygen due to COPD, noting that she usually wears 3 L. She reports that she uses inhalers and nebulizers at home, and uses a BiPAP machine at night. She notes a productive cough, stating that it is not yellow, but also not quite clear. The patient states that she always wears a pad for chronic urinary symptoms. She denies vomiting, chest pain, or issues with her bowel movements. The patient reports that she takes Xarelto. She notes that she has used prednisone in the past. She notes a history of UTI. Source of History: patient Onset: today Position: other (lungs) Quality: other (shortness of breath) Timing: worsening Associated Symptoms: + cough (productive), + abdominal pain, No chest pain, No vomiting Note: denies problems with bowel movements Review of Systems See HPI for pertinent positives & negatives. A total of 10 systems reviewed and were otherwise negative. 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 (20) Stomach problems (21) UTI (urinary tract infection) Surgical Problems: (1) H/O mastectomy (2) History of back surgery (3) Hx of appendectomy (4) Hx of hernia repair (5) Hx of hysterectomy (6) Hx of resection of liver (7) Hx of total knee replacement Family History Cancer Diabetes mellitus FH: heart disease FHx: gallbladder disease FHx: lung disease Hypertension Social History Smoking Status: Never Smoker Alcohol Use: occasionally Drug Use: none Marital Status: single Housing Status: lives alone Occupation Status: retired Current/Historical Medications Scheduled Allopurinol (Zyloprim), 100 MG PO QAM Azelastine Hcl (Astelin Nasal [place]), 2 SPRAYS TEOFILO BID Calcium Carbonate-Vitamin D (Oyster Shell Calcium/D3 500-400 mg-Unit), 1 TAB PO BID Cyclosporine (Ophth) (Restasis), 1 DROP OP BID Duloxetine HCl (Cymbalta), 30 MG PO HS Fentanyl (Fentanyl), 37.5 MCG TD Q72H Fluticasone Prop/Salmeterol (Advair Diskus 500/50 60 Dose), 1 PUFFS INH BID Fluticasone Propionate (Nasal) (Flonase Allergy Relief), 2 SPRAYS TEOFILO DAILY Gabapentin (Neurontin), 300 MG PO HS Montelukast Sodium (Singulair), 10 MG PO HS Multiple Vitamins W/ Minerals (Centrum), 1 TAB PO QAM Omeprazole (Prilosec), 20 MG PO DAILY Ranitidine (Zantac), 300 MG PO HS Rivaroxaban (Xarelto), 15 MG PO QAM Ropinirole HCl (Ropinirole HCl), 1 TAB PO HS Tiotropium Parker (Spiriva Handihaler), 1 CAP INH DAILY Scheduled PRN Acetaminophen (Tylenol), 325-650 MG PO Q6 PRN for Pain Albuterol Sulfate (Proair Respiclick), 2 PUFFS INH Q4H PRN for Shortness of Breath Oxycodone Ir (Roxicodone Ir), 5 MG PO Q6H PRN for Pain Allergies Coded Allergies: Enoxaparin (Verified Allergy, Intermediate, RASH, PRURITUS, 06/04/18) Physical Exam Vital Signs Date Time Temp Pulse Resp B/P (MAP) Pulse Ox O2 Delivery O2 Flow Rate FiO2 07/06/18 17:31 127/65 07/06/18 17:28 101 19 94 BiPAP 07/06/18 16:32 93 8/24/18 16:30 133/67 07/06/18 16:28 89 28 91 BiPAP 07/06/18 16:01 94 BiPAP 07/06/18 16:00 118/72 07/06/18 15:58 85 19 95 BiPAP 07/06/18 15:50 74 22 131/78 95 BiPAP 07/06/18 15:31 83 20 96 BiPAP/CPAP 30 07/06/18 15:29 97 BiPAP 07/06/18 15:09 82 99 30 07/06/18 14:43 88 07/06/18 14:24 36.8 90 20 126/64 89 Nasal Cannula 3.0 Physical Exam GENERAL: Patient is in no acute distress. HEENT: No acute trauma, normocephalic atraumatic, mucous membranes moist, no nasal congestion, no scleral icterus. NECK: No stridor, no adenopathy, no meningismus, trachea is midline. LUNGS: Short of breath with speaking. Wheezing bilaterally. No crackles. Equal breath sounds. HEART: Without murmurs gallops or rubs, regular rate and rhythm. ABDOMEN: Soft, nontender, bowel sounds positive, no hernias, no peritonitis. EXTREMITIES: No cyanosis or significant edema, full range of motion of all the joints without pain or difficulty, no signs for acute trauma. NEUROLOGIC: Oriented x 3, no acute motor or sensory deficits, no focal weakness. SKIN: No rash, no jaundice, no diaphoresis. Medical Decision & Procedures ER Provider Diagnostic Interpretation: Radiology results as stated below per my review and radiologist interpretation: CHEST ONE VIEW PORTABLE CLINICAL HISTORY: Respiratory distress COMPARISON STUDY: 06/03/2018 FINDINGS: The heart remains borderline enlarged. There is aortic tortuosity/ectasia. There is chronic basilar interstitial thickening. There is no overt failure. There are no significant pleural effusions.[ Arthritic changes are present within the shoulders. IMPRESSION: 1. Mild cardiomegaly. No evidence of overt failure. 2. Chronic basilar interstitial thickening Electronically signed by: Tyshawn Anguiano M.D. 07/06/2018 3:13 PM Dictated Date/Time: 07/06/2018 3:12 PM Laboratory Results 07/06/18 15:15 Red Blood Count 3.11, Mean Corpuscular Volume 107.7, Mean Corpuscular Hemoglobin 35.4, Mean Corpuscular Hemoglobin Concent 32.8, Mean Platelet Volume 12.5, Neutrophils (%) (Auto) 63.1, Lymphocytes (%) (Auto) 18.8, Monocytes (%) ( Auto) 14.6, Eosinophils (%) (Auto) 1.8, Basophils (%) (Auto) 0.3, Neutrophils # (Auto) 7.87, Lymphocytes # (Auto) 2.35, Monocytes # (Auto) 1.83, Eosinophils # ( Auto) 0.23, Basophils # (Auto) 0.04 07/06/18 15:15 Test 07/06/18 15:15 07/06/18 15:29 07/06/18 15:43 07/06/18 16:30 White Blood Count 12.50 K/uL (4.8-10.8) Red Blood Count 3.11 M/uL (4.2-5.4) Hemoglobin 11.0 g/dL (12.0-16.0) Hematocrit 33.5 % (37-47) Mean Corpuscular Volume 107.7 fL (80-100) Mean Corpuscular Hemoglobin 35.4 pg (25-34) Mean Corpuscular Hemoglobin Concent 32.8 g/dl (32-36) Platelet Count 213 K/uL (130-400) Mean Platelet Volume 12.5 fL (7.4-10.4) Neutrophils (%) (Auto) 63.1 % Lymphocytes (%) (Auto) 18.8 % Monocytes (%) (Auto) 14.6 % Eosinophils (%) (Auto) 1.8 % Basophils (%) (Auto) 0.3 % Neutrophils # (Auto) 7.87 K/uL (1.4-6.5) Lymphocytes # (Auto) 2.35 K/uL (1.2-3.4) Monocytes # (Auto) 1.83 K/uL (0.11-0.59) Eosinophils # (Auto) 0.23 K/uL (0-0.5) Basophils # (Auto) 0.04 K/uL (0-0.2) RDW Standard Deviation 63.4 fL (36.4-46.3) RDW Coefficient of Variation 16.3 % (11.5-14.5) Immature Granulocyte % (Auto) 1.4 % Immature Granulocyte # (Auto) 0.18 K/uL (0.00-0.02) Anion Gap 8.0 mmol/L (3-11) Est Creatinine Clear Calc Drug Dose 53.1 ml/min Estimated GFR () 60.5 Estimated GFR (Non- 52.2 BUN/Creatinine Ratio 24.9 (10-20) Calcium Level 10.3 mg/dl (8.5-10.1) Magnesium Level 1.7 mg/dl (1.8-2.4) Total Bilirubin 0.3 mg/dl (0.2-1) Aspartate Amino Transf (AST/SGOT) 28 U/L (15-37) Alanine Aminotransferase (ALT/SGPT) 37 U/L (12-78) Alkaline Phosphatase 100 U/L (45-117) Troponin I < 0.015 ng/ml (0-0.045) Total Protein 5.3 gm/dl (6.4-8.2) Albumin 2.6 gm/dl (3.4-5.0) Globulin 2.7 gm/dl (2.5-4.0) Albumin/Globulin Ratio 1.0 (0.9-2) Chemistry Specimen Hemolysis Venous Blood pH 7.40 (7.36-7.41) Venous Blood Partial Pressure CO2 49 mmHg (38.0-50.0) Venous Blood Partial Pressure O2 36 mmHg Venous Blood HCO3 30 mmol/L Venous Blood Oxygen Saturation 66.0 % Venous Blood Base Excess 3.8 mEq/L Lactic Acid Level 1.7 mmol/L (0.4-2.0) Urine Color YELLOW Urine Appearance CLEAR (CLEAR) Urine pH 7.0 (4.5-7.5) Urine Specific [place] 1.011 (1.000-1.030) Urine Protein NEG (NEG) Urine Glucose (UA) NEG (NEG) Urine Ketones NEG (NEG) Urine Occult Blood NEG (NEG) Urine Nitrite NEG (NEG) Urine Bilirubin NEG (NEG) Urine Urobilinogen NEG (NEG) Urine Leukocyte Esterase NEG (NEG) Test 07/06/18 16:54 Prothrombin Time 13.5 SECONDS (9.0-12.0) Prothromb Time International Ratio 1.3 (0.9-1.1) Activated Partial Thromboplast Time 35.0 SECONDS (21.0-31.0) Partial Thromboplastin Ratio 1.3 Laboratory results reviewed by me. Medications Administered Medications (Trade) Dose Ordered Sig/Shilpa Route Start Time Stop Time Status Last Admin Dose Admin Sodium Chloride 500 ml @ 999 mls/hr Q31M STAT IV 07/06/18 14:56 07/06/18 15:26 DC 07/06/18 15:54 999 MLS/HR Ondansetron HCl (Zofran Inj) 4 mg NOW STAT IV 07/06/18 14:56 07/06/18 15:00 DC 07/06/18 15:54 4 MG Methylprednisolone Sodium Succinate (Solu-Medrol IV) 125 mg NOW STAT IV 07/06/18 14:56 07/06/18 15:00 DC 07/06/18 15:54 125 MG Albuterol/ Ipratropium (Duoneb) 12 ml NOW STAT INH 07/06/18 14:56 07/06/18 15:00 DC 07/06/18 15:19 12 ML Imipenem/ Cilastatin Sodium 500 mg/Dextrose 110 ml @ 100 mls/hr NOW STAT IV 07/06/18 14:56 07/06/18 16:01 DC 07/06/18 15:54 100 MLS/HR Magnesium Sulfate (Magnesium Sulfate 1gm / D5W) 1 gm NOW STAT IV 07/06/18 16:57 07/06/18 16:58 DC 07/06/18 17:11 1 GM ECG Per My Interpretation Indication: SOB/dyspnea Rate (beats per minute): 84 Rhythm: normal sinus Findings: other (No ST elevation, no PVCs.) ED Course 1451: The patient was evaluated in room B2. A complete history and physical exam was performed. 1456: Ordered Imipenem/Cilastatin Sodium 500 mg/Dextrose 110 ml @ 100 mls/hr IV , Duoneb 12 ml INH, Solu-Medrol 125 mg IV, Zofran 4 mg IV, Sodium Chloride 500 ml @ 999 mls/hr IV 1612: I updated the patient on her current results. 1657: Ordered Magnesium Sulfate 1 gm IV 1730: I consulted Dr. Martinez - [facility] Hospitalist. He will reevaluate the patient for hospitalization. Medical Decision Differential diagnosis: dehydration, sepsis, UTI, anemia, electrolyte imbalance , pneumonia or bronchitis, exacerbation of COPD. There is a mild leukocytosis, this could be consistent with infection. No worrisome anemia. Renal panel testing does not show renal failure. Magnesium somewhat low at 1.7. No hepatitis. Lactic acid level was not elevated making sepsis less likely. EKG showed normal sinus rhythm, there was no acute ischemic change. Cardiac enzyme testing 1 is not consistent with acute cardiac injury. Blood cultures are pending. Urinalysis does not show evidence for infection. Chest film shows some chronic findings, there was no pneumonia, no pneumothorax or CHF. VBG did not show acidosis or hypoxia, there was no CO2 retention. The patient seemed short of breath with just speaking. She was not saturating adequately on her typical 3 L of oxygen. She was aggressively managed. She received IV saline and IV Zofran. She was given imipenem as she has had resistant urinary tract infections before. She received a 1 hour DuoNeb with BiPAP. She was given IV Solu-Medrol. She received IV magnesium. The patient is improved since treatment. She seems much more comfortable on the BiPAP. I do think a hospital stay is warranted. She appears to have an acute bronchitis with an exacerbation of her COPD. There is no evidence now for sepsis or UTI. I did speak to the patient and case management. The on- call hospitalist was counseled. Medication Reconcilliation Current Medication List: was personally reviewed by me Blood Pressure Screening Patient's blood pressure: Elevated blood pressure referred to hospitalist Consults Time Called: 1720 Consulting Physician: Dr. Martinez - [facility] Hospitalist Returned Call: [address] Juan Crane [facility] Hospitalist. He will reevaluate the patient for hospitalization. Impression Primary Impression: Respiratory distress Additional Impressions: Hypoxia COPD exacerbation Acute bronchitis Critical Care I have personally spent greater than 30 minutes of critical care time in the direct management of this patient. This includes bedside care, interpretation of diagnostic studies and testing, discussion with consultants, the patient, and family members, and other required patient management activities. This 30 minutes is in excess of all separately billable procedures. Scribe Attestation The scribe's documentation has been prepared under my direction and personally reviewed by me in its entirety. I confirm that the note above accurately reflects all work, treatment, procedures, and medical decision making performed by me. Departure Information Dispostion Being Evaluated By Hospitalist Referrals Tereso Mendez M.D. (PCP) Patient Instructions [facility] Problem Qualifiers
[2018-07-06 20:37] VITALS: Ht 167.6 cm; Wt 119.1 kg
[2018-07-06] MEDS ORDERED: LEVOFLOXACIN CONSULT ACTIVE PRN (21:00)
[2018-07-06] MEDS: ALBUT/IPRATROP 3MG/0.5MG NEB 3 ML VIAL INH SCH (21:00)
[2018-07-06 21:59] VITALS: PULSE 99; O2SAT 93
[2018-07-06] MEDS: DULOXETINE (CYMBALTA) 30 MG CAP PO SCH (22:17)
[2018-07-06] MEDS: METHYLPREDNISOLONE IV 60 MG in SYRINGE 0 ML IV SCH (22:18)
[2018-07-06] MEDS: LEVOFLOXACIN / D5W 500 MG in PREMIXED IN D5W 100 ML IV SCH (22:18)
[2018-07-06] MEDS: MONTELUKAST SOD 10 MG TAB PO SCH (22:18)
[2018-07-06] MEDS: RANITIDINE HCL 150 MG TAB PO SCH (22:18)
[2018-07-06] MEDS: GABAPENTIN 300 MG CAP PO SCH (22:18)
[2018-07-06] MEDS: ROPINIROLE HCL 1 MG TAB PO SCH (22:18)
[2018-07-06] MEDS: CHECK FENTANYL PATCH PLACEMENT SCH (23:47)
[2018-07-07] VITALS (12 sets, daily range): BP systolic 109–157; BP diastolic 61–74; PULSE 70–90; TEMP 36.3–37; O2SAT 90–97
[2018-07-07] MEDS: ALBUT/IPRATROP 3MG/0.5MG NEB 3 ML VIAL INH SCH ×4 (01:56→19:15)
[2018-07-07] MEDS: METHYLPREDNISOLONE IV 60 MG in SYRINGE 0 ML IV SCH ×4 (04:22→21:49)
[2018-07-07] MEDS: ACETAMINOPHEN 325 MG TAB PO PRN ×2 (05:38→15:41)
[2018-07-07 07:04] LABS: HEMOGLOBIN 10.9 g/dL (12.0-16.0); MEAN CELL VOLUME 105.8 fL (80-100); MEAN CORPUSCULAR HEMOGLOBIN 34.9 pg (25-34); MEAN PLATELET VOLUME 12.1 fL (7.4-10.4); PLATELET COUNT 206 K/uL (130-400); RED CELL DISTRIBUTION WIDTH CV 15.8 % (11.5-14.5); RED CELL DISTRIBUTION WIDTH SD 60.1 fL (36.4-46.3); WHITE BLOOD COUNT 5.89 K/uL (4.8-10.8)
[2018-07-07 07:38] LABS: CALCIUM 10.4 mg/dl (8.5-10.1); CREATININE 0.91 mg/dl (0.60-1.20); POTASSIUM 4.5 mmol/L (3.5-5.1)
[2018-07-07] MEDS ORDERED: FENTANYL PATCH REMOVE & WASTE SCH (07:59)
[2018-07-07] MEDS ORDERED: FENTANYL 12 MCG/HR TDSY TD SCH (08:00)
[2018-07-07] MEDS ORDERED: FENTANYL 25 MCG/HR TDSY TD SCH (08:00)
[2018-07-07] MEDS: RIVAROXABAN TAB 15 MG TAB PO SCH (08:01)
[2018-07-07] MEDS: PANTOprazole SOD 40 MG TAB PO SCH (08:01)
[2018-07-07] MEDS: CHECK FENTANYL PATCH PLACEMENT SCH ×3 (08:01→23:38)
[2018-07-07] MEDS: ALLOPURINOL 100 MG TAB PO SCH (08:01)
--- NOTE | 2018-07-07 09:35 | Hospitalist Progress Note ---
Hospitalist Progress Note Date of Service Jul 07, 2018. (Alexandrea Mendez .CIARA) Subjective Pt evaluation today including: conversation w/ patient, physical exam, chart review, lab review, review of studies, review of inpatient medication list Voiding: no voiding problems Ms. Mendez is feeling very sob and is visibly dyspneic as she talks. She normally wears 3L NC and is requiring 4L. She has a non productive cough but otherwise does not have any URI symptoms. Her right side hurts where she fell three days ago. ROS Constitutional: no chills, aches, sweats or fever Respiratory: see HPI Cardiac: no chest pain, palpitations, edema, orthopnea or lightheadedness GI: no abdominal pain, nausea, vomiting, diarrhea or constipation : no dysuria or hesitancy Extremities: no joint pain or weakness Skin: no rash All other systems reviewed and negative (Alexandrea Mendez CRNP) Medications Medications Administered Medications (Trade) Dose Ordered Sig/Shilpa Route Start Time Stop Time Status Last Admin Dose Admin Sodium Chloride 500 ml @ 999 mls/hr Q31M STAT IV 07/06/18 14:56 07/06/18 15:26 DC 07/06/18 15:54 999 MLS/HR Ondansetron HCl (Zofran Inj) 4 mg NOW STAT IV 07/06/18 14:56 07/06/18 15:00 DC 07/06/18 15:54 4 MG Methylprednisolone Sodium Succinate (Solu-Medrol IV) 125 mg NOW STAT IV 07/06/18 14:56 07/06/18 15:00 DC 07/06/18 15:54 125 MG Albuterol/ Ipratropium (Duoneb) 12 ml NOW STAT INH 07/06/18 14:56 07/06/18 15:00 DC 07/06/18 15:19 12 ML Imipenem/ Cilastatin Sodium 500 mg/Dextrose 110 ml @ 100 mls/hr NOW STAT IV 07/06/18 14:56 07/06/18 16:01 DC 07/06/18 15:54 100 MLS/HR Magnesium Sulfate (Magnesium Sulfate 1gm / D5W) 1 gm NOW STAT IV 07/06/18 16:57 07/06/18 16:58 DC 07/06/18 17:11 1 GM Methylprednisolone Sodium Succinate 60 mg/Syringe 0.96 ml @ 1.5 mls/min Q6H IV 07/06/18 22:00 08/05/18 21:59 07/07/18 04:22 1.5 MLS/MIN Albuterol/ Ipratropium (Duoneb) 3 ml Q6R INH 07/06/18 21:00 08/05/18 20:59 07/07/18 07:04 3 ML Allopurinol (Zyloprim Tab) 100 mg QAM PO 07/07/18 09:00 08/06/18 08:59 07/07/18 08:01 100 MG Duloxetine HCl (Cymbalta Cap) 30 mg HS PO 07/06/18 21:00 08/05/18 20:59 07/06/18 22:17 30 MG Gabapentin (Neurontin Cap) 300 mg HS PO 07/06/18 21:00 08/05/18 20:59 07/06/18 22:18 300 MG Montelukast Sodium (Singulair Tab) 10 mg HS PO 07/06/18 21:00 08/05/18 20:59 07/06/18 22:18 10 MG Rivaroxaban (Xarelto Tab) 15 mg QAM PO 07/07/18 09:00 08/06/18 08:59 07/07/18 08:01 15 MG Ropinirole HCl (Requip Tab) 1 mg HS PO 07/06/18 21:00 08/05/18 20:59 07/06/18 22:18 1 MG Miscellaneous Information (Order Awaiting Action) 1 ea QS N/A 07/07/18 00:00 08/06/18 00:00 07/06/18 23:47 1 EA Pantoprazole Sodium (Protonix Tab) 40 mg DAILY PO 07/07/18 09:00 08/06/18 08:59 07/07/18 08:01 40 MG Ranitidine HCl (zANTac TAB) 300 mg HS PO 07/06/18 21:00 08/05/18 20:59 07/06/18 22:18 300 MG Acetaminophen (Tylenol Tab) 650 mg Q4H PRN PO 07/06/18 17:45 08/05/18 17:44 07/07/18 05:38 650 MG Levofloxacin 500 mg/Prmx 100 ml @ 100 mls/hr Q24H IV 07/06/18 21:00 07/13/18 20:59 07/06/18 22:18 100 MLS/HR Fentanyl (Duragesic Patch) 12 mcg Q3D TD 07/07/18 08:00 07/21/18 07:59 07/07/18 08:01 12 MCG Fentanyl (Duragesic Patch) 25 mcg Q3D TD 07/07/18 08:00 07/21/18 07:59 07/07/18 08:01 25 MCG Miscellaneous (Fentanyl Patch Remove & Waste) 1 ea Q72H N/A 07/07/18 07:59 08/06/18 07:58 07/07/18 08:00 1 EA Miscellaneous Information (Check Fentanyl Patch Placement) 1 ea QS N/A 07/07/18 00:00 08/06/18 00:00 07/07/18 08:01 1 EA (Alexandrea Mendez CRNP) Objective Vital Signs Date Time Temp Pulse Resp B/P (MAP) Pulse Ox O2 Delivery O2 Flow Rate FiO2 07/07/18 07:38 36.9 71 18 133/68 (89) 92 07/07/18 07:05 72 20 92 Nasal Cannula 4.0 30 07/07/18 04:47 36.5 78 20 150/65 (93) 93 BiPAP 3.0 30 07/07/18 01:56 84 20 97 BiPAP/CPAP 30 07/07/18 01:56 84 97 30 07/07/18 00:49 36.7 90 18 138/69 (92) 92 BiPAP 07/06/18 21:59 99 93 30 07/06/18 21:22 CPAP 07/06/18 19:22 111 141/58 94 07/06/18 18:43 106 22 129/60 94 BiPAP 07/06/18 18:00 150/59 07/06/18 17:58 113 92 BiPAP 07/06/18 17:31 127/65 07/06/18 17:28 101 19 94 BiPAP 07/06/18 16:32 93 07/06/18 16:30 133/67 07/06/18 16:28 89 28 91 BiPAP 07/06/18 16:01 94 BiPAP 07/06/18 16:00 118/72 07/06/18 15:58 85 19 95 BiPAP 07/06/18 15:50 74 22 131/78 95 BiPAP 07/06/18 15:31 83 20 96 BiPAP/CPAP 30 07/06/18 15:29 97 BiPAP 07/06/18 15:09 82 99 30 07/06/18 14:43 88 07/06/18 14:24 36.8 90 20 126/64 89 Nasal Cannula 3.0 (Alexandrea Mendez CRNP) Physical Exam Notes: General: no distress Eyes: normal inspection, PERLL Respiratory: chest non tender, coarse bases bilaterally, visibly dyspneic Cardiac: regular rate and rhythm, no rub or gallop, systolic murmur RUSB 2/6, trace pitting edema lower extremities GI/: active bowel sounds, no abd pain or tenderness, soft, non distended Extremities: normal range of motion, normal strength, non tender Neuro/Psych: alert and oriented x 3, normal mood and affect Skin: normal color, dry, left flank ecchymotic (Alexandrea Mendez CRNP) Laboratory Results Last 24 Hours Test 07/06/18 15:15 07/06/18 15:29 07/06/18 15:43 07/06/18 16:30 White Blood Count 12.50 K/uL Red Blood Count 3.11 M/uL Hemoglobin 11.0 g/dL Hematocrit 33.5 % Mean Corpuscular Volume 107.7 fL Mean Corpuscular Hemoglobin 35.4 pg Mean Corpuscular Hemoglobin Concent 32.8 g/dl Platelet Count 213 K/uL Mean Platelet Volume 12.5 fL Neutrophils (%) (Auto) 63.1 % Lymphocytes (%) (Auto) 18.8 % Monocytes (%) (Auto) 14.6 % Eosinophils (%) (Auto) 1.8 % Basophils (%) (Auto) 0.3 % Neutrophils # (Auto) 7.87 K/uL Lymphocytes # (Auto) 2.35 K/uL Monocytes # (Auto) 1.83 K/uL Eosinophils # (Auto) 0.23 K/uL Basophils # (Auto) 0.04 K/uL RDW Standard Deviation 63.4 fL RDW Coefficient of Variation 16.3 % Immature Granulocyte % (Auto) 1.4 % Immature Granulocyte # (Auto) 0.18 K/uL Sodium Level 143 mmol/L Potassium Level 4.5 mmol/L Chloride Level 108 mmol/L Carbon Dioxide Level 27 mmol/L Anion Gap 8.0 mmol/L Blood Urea Nitrogen 24 mg/dl Creatinine 0.98 mg/dl Est Creatinine Clear Calc Drug Dose 53.1 ml/min Estimated GFR () 60.5 Estimated GFR (Non- 52.2 BUN/Creatinine Ratio 24.9 Random Glucose 122 mg/dl Calcium Level 10.3 mg/dl Magnesium Level 1.7 mg/dl Total Bilirubin 0.3 mg/dl Aspartate Amino Transf (AST/SGOT) 28 U/L Alanine Aminotransferase (ALT/SGPT) 37 U/L Alkaline Phosphatase 100 U/L Troponin I < 0.015 ng/ml Total Protein 5.3 gm/dl Albumin 2.6 gm/dl Globulin 2.7 gm/dl Albumin/Globulin Ratio 1.0 Chemistry Specimen Hemolysis Venous Blood pH 7.40 Venous Blood Partial Pressure CO2 49 mmHg Venous Blood Partial Pressure O2 36 mmHg Venous Blood HCO3 30 mmol/L Venous Blood Oxygen Saturation 66.0 % Venous Blood Base Excess 3.8 mEq/L Lactic Acid Level 1.7 mmol/L Urine Color YELLOW Urine Appearance CLEAR Urine pH 7.0 Urine Specific [place] 1.011 Urine Protein NEG Urine Glucose (UA) NEG Urine Ketones NEG Urine Occult Blood NEG Urine Nitrite NEG Urine Bilirubin NEG Urine Urobilinogen NEG Urine Leukocyte Esterase NEG Test 07/06/18 16:54 07/07/18 06:46 Prothrombin Time 13.5 SECONDS Prothromb Time International Ratio 1.3 Activated Partial Thromboplast Time 35.0 SECONDS Partial Thromboplastin Ratio 1.3 White Blood Count 5.89 K/uL Red Blood Count 3.12 M/uL Hemoglobin 10.9 g/dL Hematocrit 33.0 % Mean Corpuscular Volume 105.8 fL Mean Corpuscular Hemoglobin 34.9 pg Mean Corpuscular Hemoglobin Concent 33.0 g/dl RDW Standard Deviation 60.1 fL RDW Coefficient of Variation 15.8 % Platelet Count 206 K/uL Mean Platelet Volume 12.1 fL Sodium Level 141 mmol/L Potassium Level 4.5 mmol/L Chloride Level 107 mmol/L Carbon Dioxide Level 27 mmol/L Anion Gap 7.0 mmol/L Blood Urea Nitrogen 23 mg/dl Creatinine 0.91 mg/dl Est Creatinine Clear Calc Drug Dose 58.3 ml/min Estimated GFR () 66.2 Estimated GFR (Non- 57.1 BUN/Creatinine Ratio 25.7 Random Glucose 188 mg/dl Calcium Level 10.4 mg/dl Magnesium Level 2.0 mg/dl (Alexandrea Mendez .CIARA) Assessment and Plan Ms. Mendez is an 87 y/o woman here for COPD exacerbation COPD / asthma exacerbation - continue Dunebs/albuterol, IV steroids, Levaquin and an 02 protocol - currently requiring 4L NC, baseline is 3L . - Chest CT showing: IMPRESSION: 1. Stable mediastinal and hilar lymphadenopathy 2. Stable right lower lobe lung herniation 3. Multinodular thyroid gland 4. Stable right middle lobe pulmonary nodules versus central lymph nodes 5. 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 Right lower lobe airspace opacities, atelectatic versus pneumonia. - per outpatient pulm note patient does not want to further work up pulmonary nodules - no acute process on chest Xray - patient sees Dr. Howell outpatient for pulm - chest physiotherapy CARLITOS - CPAP ordered HS Chronic pain - continue narcotics as prescribed CKD III - renal function is at baseline Hyperglycemia secondary to steroid administration - recent A1c is 5.8 - bsg 188 this morning, will start ss and watch bsgs to adjust accordingly Gout - cont Allopurinol Paroxysmal AF - sinus on admission - cont Xarelto GERD - continue protonix Full code - Xarelto prophylaxis Dispo: patient from the [facility], currently waiting to move into the [facility] (Alexandrea Mendez CRNP) [employer] Physician Supervision Note: I discussed with Alexandrea Mendez [employer] and agree with findings and plan as documented in the note. Any exceptions or clarifications are listed here: None Documented By: Flaquito Ceja (Flaquito Ceja M.D.)
[2018-07-07] MEDS ORDERED: DEXTROSE 50% 50 ML SYR IV PRN (09:45)
[2018-07-07] MEDS ORDERED: CARBOHYDRATES FOR HYPOGLYCEMIA PO PRN (09:45)
[2018-07-07] MEDS ORDERED: GLUCAGON FOR INJ 1 MG VIAL IM PRN (09:45)
[2018-07-07] MEDS ORDERED: GLUCOSE 40% GEL 15 GM TUBE PO PRN (09:45)
[2018-07-07] MEDS ORDERED: GLUCOSE 10 TABS/TUBE PO PRN (09:45)
--- NOTE | 2018-07-07 10:07 | DIAGNOSTIC IMAGING REPORT ---
(CHEST) THORAX WITHOUT CLINICAL HISTORY: Rib fractures, pneumonia. COMPARISON STUDY: CT scan performed May 22, 2018 CT DOSE: 1080.09 mGy.cm TECHNIQUE: CT of the thorax was performed from the thoracic inlet to the lung bases. Images are reviewed in the axial, sagittal, and coronal planes. IV contrast was not administered for this examination. A dose lowering technique was utilized adhering to the principles of ALARA. FINDINGS: Thyroid: There is a multinodular thyroid goiter Thoracic aorta: The thoracic aorta is normal in course and caliber, noting standard 3 vessel arch anatomy. Heart: There are coronary artery calcifications present. Lungs and pleural spaces: There is a persistent right lower lobe lung herniation. There are persistent dependent right lower lobe airspace opacities, atelectatic versus pneumonia. There is a stable 5 mm right middle lobe pulmonary nodule. There is a stable 1 cm right middle lobe pulmonary nodule versus lymph node. There is a stable 15 mm right middle lobe pulmonary nodule versus hilar lymph node. There are left lower lobe atelectatic changes. Mediastinum: There are mildly enlarged mediastinal lymph nodes unchanged the prior study. [place]ie: There are mildly enlarged hilar lymph nodes unchanged the prior study Axilla: There is no evidence of pathologic axillary lymphadenopathy Upper abdomen: There is mild gaseous distention of the stomach. Postsurgical changes involve the left lobe of the liver. Skeletal structures: There are old right-sided rib deformities. Degenerative changes are present within the shoulders and thoracic spine. There is a subacute upper thoracic vertebral body compression deformity. IMPRESSION: 1. Stable mediastinal and hilar lymphadenopathy 2. Stable right lower lobe lung herniation 3. Multinodular thyroid gland 4. Stable right middle lobe pulmonary nodules versus central lymph nodes 5. 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 Right lower lobe airspace opacities, atelectatic versus pneumonia. Electronically signed by: Tyshawn Anguiano M.D. 07/07/2018 10:06 AM Dictated Date/Time: 07/07/2018 9:56 AM
[2018-07-07] MEDS: INSULIN ASPART 100 UNITS/ML 3 ML PEN SC SCH ×4 (10:08→20:10)
[2018-07-07] MEDS ORDERED: MICONAZOLE NITRATE POWDER 43 GM EXT PRN (10:30)
[2018-07-07] MEDS: ROPINIROLE HCL 1 MG TAB PO SCH ×2 (11:50→20:02)
[2018-07-07] MEDS: ROPINIROLE HCL 1 MG TAB PO PRN (12:00)
[2018-07-07] MEDS: GABAPENTIN 300 MG CAP PO SCH (20:02)
[2018-07-07] MEDS: RANITIDINE HCL 150 MG TAB PO SCH (20:02)
[2018-07-07] MEDS: MONTELUKAST SOD 10 MG TAB PO SCH (20:02)
[2018-07-07] MEDS: DULOXETINE (CYMBALTA) 30 MG CAP PO SCH (20:03)
[2018-07-07] MEDS: LEVOFLOXACIN / D5W 500 MG in PREMIXED IN D5W 100 ML IV SCH (20:13)
[2018-07-08] VITALS (13 sets, daily range): BP systolic 121–151; BP diastolic 61–81; PULSE 68–94; TEMP 36.4–36.9; O2SAT 88–99
[2018-07-08] MEDS: ALBUT/IPRATROP 3MG/0.5MG NEB 3 ML VIAL INH SCH ×4 (02:04→19:09)
[2018-07-08] MEDS: METHYLPREDNISOLONE IV 60 MG in SYRINGE 0 ML IV SCH ×4 (03:24→20:54)
[2018-07-08] MEDS: CHECK FENTANYL PATCH PLACEMENT SCH ×5 (08:33→23:29)
[2018-07-08] MEDS: PANTOprazole SOD 40 MG TAB PO SCH (08:34)
[2018-07-08] MEDS: RIVAROXABAN TAB 15 MG TAB PO SCH (08:34)
[2018-07-08] MEDS: ALLOPURINOL 100 MG TAB PO SCH (08:34)
[2018-07-08] MEDS: INSULIN GLARGINE SOLOSTAR 100 UNITS/ML 3 ML PEN SQ SCH ×2 (08:51→21:02)
[2018-07-08] MEDS: INSULIN ASPART 100 UNITS/ML 3 ML PEN SC SCH ×4 (08:52→21:01)
[2018-07-08 09:03] LABS: HEMATOCRIT 34.5 % (37-47); HEMOGLOBIN 11.6 g/dL (12.0-16.0); MEAN CELL VOLUME 105.2 fL (80-100); WHITE BLOOD COUNT 9.41 K/uL (4.8-10.8)
[2018-07-08 09:04] LABS: MEAN CORPUSCULAR HEMOGLOBIN 35.4 pg (25-34); MEAN CORPUSCULAR HGB CONC 33.6 g/dl (32-36); MEAN PLATELET VOLUME 12.1 fL (7.4-10.4); PLATELET COUNT 213 K/uL (130-400); RED CELL DISTRIBUTION WIDTH CV 15.9 % (11.5-14.5); RED CELL DISTRIBUTION WIDTH SD 60.9 fL (36.4-46.3)
[2018-07-08] MEDS: ROPINIROLE HCL 1 MG TAB PO PRN (09:12)
[2018-07-08 09:37] LABS: CALCIUM 10.5 mg/dl (8.5-10.1); CREATININE 1.12 mg/dl (0.60-1.20)
--- NOTE | 2018-07-08 12:05 | Hospitalist Progress Note ---
Hospitalist Progress Note Date of Service Jul 08, 2018. (Alexandrea Mendez ., CIARA) Subjective Pt evaluation today including: conversation w/ patient, physical exam, chart review, lab review, review of inpatient medication list Voiding: no voiding problems Ms. Mendez feels she is improving. She is at her baseline oxygen level 3L NC. She coughs in the morning but not much throughout the day. She would like to get up and have a little more exercise in her day now. ROS Constitutional: no chills, aches, sweats or fever Respiratory: see HPI Cardiac: no chest pain, palpitations, edema, orthopnea or lightheadedness GI: no abdominal pain, nausea, vomiting, diarrhea or constipation : no dysuria or hesitancy Extremities: no joint pain or weakness Skin: no rash All other systems reviewed and negative (Alexandrea Mendez ., CIARA) Medications Medications Administered Medications (Trade) Dose Ordered Sig/Shilpa Route Start Time Stop Time Status Last Admin Dose Admin Sodium Chloride 500 ml @ 999 mls/hr Q31M STAT IV 07/06/18 14:56 07/06/18 15:26 DC 07/06/18 15:54 999 MLS/HR Ondansetron HCl (Zofran Inj) 4 mg NOW STAT IV 07/06/18 14:56 07/06/18 15:00 DC 07/06/18 15:54 4 MG Methylprednisolone Sodium Succinate (Solu-Medrol IV) 125 mg NOW STAT IV 07/06/18 14:56 07/06/18 15:00 DC 07/06/18 15:54 125 MG Albuterol/ Ipratropium (Duoneb) 12 ml NOW STAT INH 07/06/18 14:56 07/06/18 15:00 DC 07/06/18 15:19 12 ML Imipenem/ Cilastatin Sodium 500 mg/Dextrose 110 ml @ 100 mls/hr NOW STAT IV 07/06/18 14:56 07/06/18 16:01 DC 07/06/18 15:54 100 MLS/HR Magnesium Sulfate (Magnesium Sulfate 1gm / D5W) 1 gm NOW STAT IV 07/06/18 16:57 07/06/18 16:58 DC 07/06/18 17:11 1 GM Methylprednisolone Sodium Succinate 60 mg/Syringe 0.96 ml @ 1.5 mls/min Q6H IV 07/06/18 22:00 08/05/18 21:59 07/08/18 10:23 1.5 MLS/MIN Albuterol/ Ipratropium (Duoneb) 3 ml Q6R INH 07/06/18 21:00 08/05/18 20:59 07/08/18 07:17 3 ML Allopurinol (Zyloprim Tab) 100 mg QAM PO 07/07/18 09:00 08/06/18 08:59 07/08/18 08:34 100 MG Duloxetine HCl (Cymbalta Cap) 30 mg HS PO 07/06/18 21:00 08/05/18 20:59 07/07/18 20:03 30 MG Gabapentin (Neurontin Cap) 300 mg HS PO 07/06/18 21:00 08/05/18 20:59 07/07/18 20:02 300 MG Montelukast Sodium (Singulair Tab) 10 mg HS PO 07/06/18 21:00 08/05/18 20:59 07/07/18 20:02 10 MG Rivaroxaban (Xarelto Tab) 15 mg QAM PO 07/07/18 09:00 08/06/18 08:59 07/08/18 08:34 15 MG Ropinirole HCl (Requip Tab) 1 mg HS PO 07/06/18 21:00 08/05/18 20:59 07/07/18 20:02 1 MG Miscellaneous Information (Order Awaiting Action) 1 ea QS N/A 07/07/18 00:00 08/06/18 00:00 07/06/18 23:47 1 EA Pantoprazole Sodium (Protonix Tab) 40 mg DAILY PO 07/07/18 09:00 08/06/18 08:59 07/08/18 08:34 40 MG Ranitidine HCl (zANTac TAB) 300 mg HS PO 07/06/18 21:00 08/05/18 20:59 07/07/18 20:02 300 MG Acetaminophen (Tylenol Tab) 650 mg Q4H PRN PO 07/06/18 17:45 08/05/18 17:44 07/07/18 15:41 650 MG Levofloxacin 500 mg/Prmx 100 ml @ 100 mls/hr Q24H IV 07/06/18 21:00 8/31/18 20:59 07/07/18 20:13 100 MLS/HR Fentanyl (Duragesic Patch) 12 mcg Q3D TD 07/07/18 08:00 07/21/18 07:59 07/07/18 08:01 12 MCG Fentanyl (Duragesic Patch) 25 mcg Q3D TD 07/07/18 08:00 07/21/18 07:59 07/07/18 08:01 25 MCG Miscellaneous (Fentanyl Patch Remove & Waste) 1 ea Q72H N/A 07/07/18 07:59 08/06/18 07:58 07/07/18 08:00 1 EA Miscellaneous Information (Check Fentanyl Patch Placement) 1 ea QS N/A 07/07/18 00:00 07/08/18 10:06 DC 07/08/18 08:33 1 EA Insulin Aspart (novoLOG ASPART) SLIDING SCALE If C... ACHS SC 07/07/18 09:45 08/06/18 09:44 07/08/18 08:52 9 UNITS Ropinirole HCl (Requip Tab) 0.5 mg QD PRN PO 07/07/18 10:30 08/06/18 10:29 07/08/18 09:12 0.5 MG Miconazole Nitrate (Desenex Powder) 1 appln PRN PRN EXT 07/07/18 10:30 08/06/18 10:29 07/07/18 17:27 1 APPLN Insulin Glargine (Lantus Solostar Pen) 10 units BID SQ 07/08/18 09:00 08/07/18 08:59 07/08/18 08:51 10 UNITS (Alexandrea Mendez CRNP) Objective Vital Signs Date Time Temp Pulse Resp B/P (MAP) Pulse Ox O2 Delivery O2 Flow Rate FiO2 07/08/18 07:23 36.6 71 22 144/68 (93) 90 3.0 07/08/18 07:18 68 20 88 Room Air 07/08/18 04:26 36.9 72 18 145/72 (96) 92 BiPAP 07/08/18 02:05 72 14 95 BiPAP/CPAP 30 07/08/18 02:05 72 95 30 07/08/18 00:00 Nasal Cannula 4.0 07/07/18 22:34 37.0 82 20 109/61 (77) 96 CPAP 4.0 07/07/18 21:28 87 95 30 07/07/18 19:31 36.4 90 18 153/74 (100) 92 Nasal Cannula 4.0 07/07/18 19:15 90 20 92 Nasal Cannula 4.0 07/07/18 15:45 Nasal Cannula 4.0 07/07/18 15:38 36.3 87 18 157/74 (101) 97 Nasal Cannula 4.0 07/07/18 14:21 83 20 92 Nasal Cannula 4.0 (Alexandrea Mendez CRNP) Physical Exam Notes: General: no distress Eyes: normal inspection, PERLL Respiratory: chest non tender, clear to auscultation, normal breath sounds, no respiratory distress, no accessory muscle use Cardiac: regular rate and rhythm, no rub or gallop, no murmur, no edema, no jvd GI/: active bowel sounds, no abd pain or tenderness, soft, non distended Extremities: normal range of motion, normal strength, non tender Neuro/Psych: alert and oriented x 3, normal mood and affect Skin: normal color, dry (Alexandrea Mendez CRNP) Laboratory Results Last 24 Hours Test 07/07/18 11:49 07/07/18 17:11 07/07/18 20:01 07/08/18 07:23 Bedside Glucose 159 mg/dl 209 mg/dl 293 mg/dl 180 mg/dl Test 07/08/18 08:43 White Blood Count 9.41 K/uL Red Blood Count 3.28 M/uL Hemoglobin 11.6 g/dL Hematocrit 34.5 % Mean Corpuscular Volume 105.2 fL Mean Corpuscular Hemoglobin 35.4 pg Mean Corpuscular Hemoglobin Concent 33.6 g/dl RDW Standard Deviation 60.9 fL RDW Coefficient of Variation 15.9 % Platelet Count 213 K/uL Mean Platelet Volume 12.1 fL Sodium Level 139 mmol/L Potassium Level 4.0 mmol/L Chloride Level 104 mmol/L Carbon Dioxide Level 25 mmol/L Anion Gap 10.0 mmol/L Blood Urea Nitrogen 36 mg/dl Creatinine 1.12 mg/dl Est Creatinine Clear Calc Drug Dose 47.1 ml/min Estimated GFR () 51.5 Estimated GFR (Non- 44.4 BUN/Creatinine Ratio 32.1 Random Glucose 259 mg/dl Calcium Level 10.5 mg/dl (Alexandrea Mendez .CIARA) Assessment and Plan Ms. Mendez is an 87 y/o woman here for COPD exacerbation COPD / asthma exacerbation - continue Dunebs/albuterol, IV steroids, Levaquin and an 02 protocol - currently requiring 4L NC, baseline is 3L . Can start to titrate steroids tomorrow. - Chest CT showing: IMPRESSION: 1. Stable mediastinal and hilar lymphadenopathy 2. Stable right lower lobe lung herniation 3. Multinodular thyroid gland 4. Stable right middle lobe pulmonary nodules versus central lymph nodes 5. 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 Right lower lobe airspace opacities, atelectatic versus pneumonia. - per outpatient pulm note patient does not want to further work up pulmonary nodules - no acute process on chest Xray - patient sees Dr. 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 Any exceptions or clarifications are listed here: None Patient is still improved with her breathing continue supportive care Documented By: Flaquito Ceaj (Flaquito Ceja M.D.)
[2018-07-08] MEDS: ACETAMINOPHEN 325 MG TAB PO PRN (20:04)
[2018-07-08] MEDS: ROPINIROLE HCL 1 MG TAB PO SCH (20:05)
[2018-07-08] MEDS: LEVOFLOXACIN / D5W 500 MG in PREMIXED IN D5W 100 ML IV SCH (20:54)
[2018-07-08] MEDS: DULOXETINE (CYMBALTA) 30 MG CAP PO SCH (20:54)
[2018-07-08] MEDS: MONTELUKAST SOD 10 MG TAB PO SCH (20:55)
[2018-07-08] MEDS: RANITIDINE HCL 150 MG TAB PO SCH (20:55)
[2018-07-08] MEDS: GABAPENTIN 300 MG CAP PO SCH (20:55)
[2018-07-09] VITALS (15 sets, daily range): BP systolic 120–154; BP diastolic 61–82; PULSE 70–80; TEMP 36.4–36.6; O2SAT 92–96
[2018-07-09] MEDS: ALBUT/IPRATROP 3MG/0.5MG NEB 3 ML VIAL INH SCH ×4 (01:45→19:12)
[2018-07-09] MEDS: METHYLPREDNISOLONE IV 60 MG in SYRINGE 0 ML IV SCH ×3 (03:28→16:16)
--- NOTE | 2018-07-09 08:12 | Clinical Documentation Query ---
CLINICAL DOCUMENTATION QUERY 87 yo female admitted with COPD exacerbation. Patient wears chronic O2 at home and was found to be hypoxic on admission. Patient has a history of CARLITOS. Patient was treated with O2 at 4L, Duonebs, albuterol, and IV steroids. In your clinical opinion is this patient being managed for: ( ) Acute and chronic respiratory failure with hypoxia ( ) Not Agree ( ) Other explanation of clinical findings (No explanation is considered a No Response) ( ) Unable to determine ( ) Need to Discuss (Phone CDS or qliq) (No discussion is considered a No Response) The medical record reflects the following clinical findings, treatment, and risk factors. Clinical Indicators: As above Treatment: As above Risk Factors: Age, chronic opioid use, COPD, morbid obesity, hypoxia Please clarify and document your clinical opinion in the progress notes and discharge summary. Terms such as "probable", "suspected", "likely", "questionable", "possible", or "still to be ruled out" are acceptable. IF IN AGREEMENT, YOU MUST DOCUMENT ABOVE DIAGNOSTIC STATEMENT IN DAILY PROGRESS NOTES AND DISCHARGE SUMMARY. This document is not part of the patient's record. Thank You, Cheri Still RN, MSN [phone]
[2018-07-09] MEDS: CHECK FENTANYL PATCH PLACEMENT SCH ×4 (09:10→16:10)
[2018-07-09] MEDS: PANTOprazole SOD 40 MG TAB PO SCH (09:10)
[2018-07-09] MEDS: ALLOPURINOL 100 MG TAB PO SCH (09:10)
[2018-07-09] MEDS: RIVAROXABAN TAB 15 MG TAB PO SCH (09:10)
[2018-07-09] MEDS: INSULIN ASPART 100 UNITS/ML 3 ML PEN SC SCH ×4 (09:13→20:53)
[2018-07-09] MEDS: INSULIN GLARGINE SOLOSTAR 100 UNITS/ML 3 ML PEN SQ SCH ×2 (09:14→20:53)
[2018-07-09] MEDS: ROPINIROLE HCL 1 MG TAB PO PRN (13:44)
[2018-07-09] MEDS ORDERED: FENTANYL PATCH REMOVE & WASTE SCH ×2 (16:59)
[2018-07-09] MEDS ORDERED: FENTANYL 12 MCG/HR TDSY TD SCH (17:00)
[2018-07-09] MEDS ORDERED: FENTANYL 25 MCG/HR TDSY TD SCH (17:00)
--- NOTE | 2018-07-09 18:29 | Progress Note ---
Subjective Date of Service: Jul 09, 2018. Subjective Pt evaluation today including: conversation w/ patient, physical exam, chart review, lab review, review of studies, conversation w/ [employer] consultant, review of inpatient medication list generally feelign better, still has a lot of cough, difficult to cough up, denies sputum, deny wheezing Problem List Medical Problems: (1) Acute bronchitis Status: Acute (2) Acute renal failure Status: Acute (3) Atrial fibrillation with RVR Status: Acute (4) Cellulitis Status: Acute (5) Cellulitis of right leg Status: Acute (6) Cellulitis of right leg Status: Acute (7) Cellulitis of right lower leg Status: Acute (8) Falling Status: Acute (9) Hematuria Status: Acute (10) Hypoxia Status: Acute (11) Left lower lobe pneumonia Status: Acute (12) Low back pain Status: Acute (13) Nausea Status: Acute (14) Pneumonia Status: Acute (15) Pyuria Status: Acute (16) Respiratory distress Status: Acute (17) Right arm weakness Status: Acute (18) Stomach problems Status: Chronic (19) Yeast infection of the skin Status: Acute Review of Systems Constitutional: No fever, No chills, No sweats, No weight loss, No weakness, No fatigue, No problem reported Eyes: No worsening of vision, No eye pain, No redness, No discharge, No diplopia ENT: No hearing loss, No unusual epistaxis, No nasal symptoms, No sore throat, No tinnitus, No dental problems, No trouble swallowing Respiratory: + cough, No sputum, No wheezing, No shortness of breath, No dyspnea on exertion, No dyspnea at rest, No hemoptysis Cardiac: No chest pain, No orthopnea, No PND, No edema, No claudication, No palpitations Abdomen: No pain, No nausea, No vomiting, No diarrhea, No constipation Musculoskeletal: + swelling, No joint pain, No muscle pain, No calf pain Female : No dysuria, No urinary frequency, No hematuria, No incontinence, No abnormal vaginal bleeding, No vaginal discharge Neurologic: No memory loss, No paralysis, No weakness, No numbness/tingling, No vertigo, No balance problems Psychiatric: No depression symptoms, No anhedonism, No anxiety, No insomnia, No substance abuse Heme: No abnormal bleeding/bruising, No clotting problems, No swollen lymph nodes, No night sweats Endo: No fatigue, No excessive thirst, No excessive urination Skin: No rash, No itch, No new/changing skin lesions, No color change, No bleeding Objective Vital Signs Date Time Temp Pulse Resp B/P (MAP) Pulse Ox O2 Delivery O2 Flow Rate FiO2 07/09/18 15:43 36.4 76 20 134/66 (88) 93 Nasal Cannula 2.0 07/09/18 13:55 76 20 94 Nasal Cannula 3.0 07/09/18 11:35 36.5 78 20 132/67 (88) 94 Nasal Cannula 2.0 07/09/18 10:15 72 94 07/09/18 08:30 93 Nasal Cannula 3.0 07/09/18 08:30 Nasal Cannula 3.0 07/09/18 07:00 77 20 93 Nasal Cannula 3.0 07/09/18 06:52 36.4 71 20 147/69 (95) 96 BiPAP 07/09/18 03:51 36.6 70 18 130/82 (98) 94 BiPAP 07/09/18 01:46 77 94 30 07/09/18 01:45 77 22 94 BiPAP/CPAP 30 07/08/18 22:27 36.4 77 20 125/61 (82) 94 BiPAP 07/08/18 21:10 86 93 30 07/08/18 20:00 Nasal Cannula 4.0 07/08/18 19:15 36.7 85 20 151/75 (100) 94 Nasal Cannula 3.0 07/08/18 19:09 86 18 93 Nasal Cannula 3.0 Physical Exam General Appearance: WD/WN, no apparent distress, + obese Eyes: normal inspection, PERRL, EOMI, sclerae normal ENT: normal ENT inspection, hearing grossly normal, pharynx normal Neck: supple, no adenopathy, thyroid normal, no JVD, no carotid bruits, trachea midline Respiratory/Chest: chest non-tender, normal breath sounds, no respiratory distress, no accessory muscle use, + decreased breath sounds, + crackles (In bilateral lower lung) Cardiovascular: regular rate, rhythm, no gallop, no JVD, no murmur Abdomen: normal bowel sounds, non tender, soft, no organomegaly, no pulsatile mass Extremities: normal range of motion, non-tender, normal inspection, no pedal edema, no calf tenderness, normal capillary refill, pelvis stable, + swelling (1 + edema bilateral lower extremity) 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, no motor/sensory deficits, alert, normal mood/affect, oriented x 3 Skin: normal color, warm/dry, no rash Lymphatic: no adenopathy Laboratory Results Last 24 Hours Test 07/08/18 20:19 07/09/18 07:09 07/09/18 11:23 07/09/18 16:25 Bedside Glucose 163 mg/dl 180 mg/dl 137 mg/dl 164 mg/dl Assessment and Plan 87 y/o woman admitted on July 06 because of COPD exacerbation COPD / asthma exacerbation Stable improving, Was on 3 L nasal cannula at home currently is on 2-3 L continue Dunebs/albuterol, IV steroids, Levaquin and an 02 protocol We will add Mucinex for cough and difficult cough up sputum - Chest CT showing: IMPRESSION: 1. Stable mediastinal and hilar lymphadenopathy 2. Stable right lower lobe lung herniation 3. Multinodular thyroid gland 4. Stable right middle lobe pulmonary nodules versus central lymph nodes 5. 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 Right lower lobe airspace opacities, atelectatic versus pneumonia. - per outpatient pulm note patient does not want to further work up pulmonary nodules Taper down Solu-Medrol, , patient sees Dr. Howell outpatient for pulm chest physiotherapy PT/OT CARLITOS - CPAP ordered HS Chronic pain - continue narcotics as prescribed CKD III - renal function is at baseline Hyperglycemia secondary to steroid administration - recent A1c is 5.8 - bsgs running a bit high, will tighten ss and add lantus Gout - cont Allopurinol Paroxysmal AF - sinus on admission - cont Xarelto GERD - continue protonix Full code - Xarelto prophylaxis Dispo: patient from [facility], currently waiting to move into the [place] , possible discharge in day 1 or 2, Continued [facility] stay due to: multiple IV medications needed Discharge planning: home
[2018-07-09] MEDS: ROPINIROLE HCL 1 MG TAB PO SCH (20:47)
[2018-07-09] MEDS: RANITIDINE HCL 150 MG TAB PO SCH (20:48)
[2018-07-09] MEDS: DULOXETINE (CYMBALTA) 30 MG CAP PO SCH (20:49)
[2018-07-09] MEDS: GABAPENTIN 300 MG CAP PO SCH (20:49)
[2018-07-09] MEDS: MONTELUKAST SOD 10 MG TAB PO SCH (20:49)
[2018-07-09] MEDS ORDERED: LEVOFLOXACIN 500 MG TAB PO SCH (21:00)
[2018-07-09] MEDS: ACETAMINOPHEN 325 MG TAB PO PRN (21:10)
[2018-07-09] MEDS: METHYLPREDNISOLONE IV 40 MG in SYRINGE 0 ML IV SCH (21:14)
[2018-07-10] VITALS (7 sets, daily range): BP systolic 135–158; BP diastolic 68–72; PULSE 63–92; TEMP 36.2–36.5; O2SAT 30–97
[2018-07-10] MEDS: ALBUT/IPRATROP 3MG/0.5MG NEB 3 ML VIAL INH SCH ×3 (01:52→13:43)
[2018-07-10] MEDS: METHYLPREDNISOLONE IV 40 MG in SYRINGE 0 ML IV SCH ×2 (06:12→13:19)
[2018-07-10] MEDS: INSULIN ASPART 100 UNITS/ML 3 ML PEN SC SCH ×2 (07:55→12:37)
[2018-07-10] MEDS: INSULIN GLARGINE SOLOSTAR 100 UNITS/ML 3 ML PEN SQ SCH (07:55)
[2018-07-10] MEDS: CHECK FENTANYL PATCH PLACEMENT SCH ×4 (07:56)
[2018-07-10] MEDS: ALLOPURINOL 100 MG TAB PO SCH (07:56)
[2018-07-10] MEDS: RIVAROXABAN TAB 15 MG TAB PO SCH (07:57)
[2018-07-10] MEDS: PANTOprazole SOD 40 MG TAB PO SCH (07:57)
[2018-07-10] MEDS ORDERED: FENTANYL PATCH REMOVE & WASTE SCH (08:00)
[2018-07-10 08:40] LABS: CREATININE 1.02 mg/dl (0.60-1.20); PHOSPHORUS 3.1 mg/dl (2.5-4.9)
[2018-07-10 09:34] LABS: POTASSIUM 4.2 mmol/L (3.5-5.1)
--- NOTE | 2018-07-10 10:41 | Clinical Documentation Query ---
CLINICAL DOCUMENTATION QUERY 87 yo female admitted with COPD exacerbation. Patient wears chronic O2 at home and was found to be hypoxic on admission. Patient has a history of CARLITOS. Patient was treated with O2 at 4L, Duonebs, albuterol, and IV steroids. In your clinical opinion is this patient being managed for: ( x) possible Acute and chronic respiratory failure with hypoxia ( ) Not Agree ( ) Other explanation of clinical findings (No explanation is considered a No Response) ( ) Unable to determine ( ) Need to Discuss (Phone CDS or qliq) (No discussion is considered a No Response) The medical record reflects the following clinical findings, treatment, and risk factors. Clinical Indicators: As above Treatment: As above Risk Factors: Age, chronic opioid use, COPD, morbid obesity, hypoxia Please clarify and document your clinical opinion in the progress notes and discharge summary. Terms such as "probable", "suspected", "likely", "questionable", "possible", or "still to be ruled out" are acceptable. IF IN AGREEMENT, YOU MUST DOCUMENT ABOVE DIAGNOSTIC STATEMENT IN DAILY PROGRESS NOTES AND DISCHARGE SUMMARY. This document is not part of the patient's record. Thank You, Cheri Still RN, MSN [phone]
[2018-07-10] MEDS ORDERED: RQP1 PO (12:37)
[2018-07-10] MEDS ORDERED: LVQ500 PO (12:37)
--- NOTE | 2018-07-10 12:38 | Discharge Instructions ---
Discharge Instructions Date of Service Jul 10, 2018. Admission Reason for Admission: Copd Exacerbation Discharge Discharge Diagnosis / Problem: copd exac Discharge Goals Goal(s): Decrease discomfort, Improve function, Increase independence, Improve disease control, Improve nutritional status, Learn about illness, Diagnostic testing, Therapeutic intervention, Prevent Disease Progression, Specific goals Activity Recommendations Activity Limitations: resume your previous activity . Instructions / Follow-Up Instructions / Follow-Up you have COPD / asthma exacerbation you need to cont 3 L nasal cannula at home will give you tapering dose of oral prednisone continue Mucinex for cough need to continue PT/OT you have CARLITOS, need to contine CPAP - you need to follow up with your primary care physician in 1 week, - take medication as instructed, never overdose or any misuse, or take with alcohol, because misuse of medicine may cause organ damage or , call me , or your primary care physician if have questions of discharge medicaitons. - call your primary care physician, or go to local emergency room if has any fever/chill, chest pain, shortness of breathing, nausea/vomiting/abdominal pain , facial droop/slurry speech/local weakness, or if has any questions. - fall precaution - diet as instructed Current Hospital Diet Patient's current hospital diet: AHA Diet (Heart Healthy), Diabetes Type 2 Diet Discharge Diet Recommended Diet: Diabetes Type 2 Diet Pending Studies Studies pending at discharge: no Laboratory Results Hemoglobin A1c Test 05/14/18 05:26 Range/Units Estimated Average Glucose 120 mg/dl Hemoglobin A1c 5.8 H 4.5-5.6 % Medical Emergencies . Who to Call and When: Medical Emergencies: If at any time you feel your situation is an emergency, please call 911 immediately. . Non-Emergent Contact Non-Emergency issues call your: Primary Care Provider . . "Provider Documentation" section prepared by Maged Lyn. .
[2018-07-10] MEDS ORDERED: PRED20TA PO (12:41)
--- NOTE | 2018-07-10 17:11 | Discharge Summary ---
Discharge Summary Date of Service Jul 10, 2018. Discharge Summary Admission Date: Jul 06, 2018 at 17:44 Discharge Date: Jul 10, 2018 Discharge Disposition: Personal care Principal Diagnosis: COPD exacerbation Problems/Secondary Diagnoses: (1) Stomach problems Status: Chronic Immunizations: Have You Had Influenza Vaccine: Yes Influenza Vaccine Date: Aug 20, 2010 History of Tetanus Vaccine?: UNSURE History of Pneumococcal: Yes Pneumococcal Date: Aug 13, 2008 History of Hepatitis B Vaccine: Unknown Procedures: No Consultations: No Medication Reconciliation New Medications: Prednisone (Prednisone) 20 Mg Tab 0 PO DAILY, #14 3 TABS DAILY FOR 2 DAYS, THEN 2 TABS DAILY FOR 2 DAYS, THEN 1 TAB DAILY FOR 2 DAYS, THEN 1/2 TAB DAILY FOR 2 DAYS. Levofloxacin (Levofloxacin) 500 Mg Tab 500 MG PO Q24H for 3 Days, #3 TAB Ropinirole HCl (Ropinirole HCl) 1 Mg Tab 0.5 MG PO QD PRN for restless legs for 30 Days, #15 TAB Continued Medications: Acetaminophen (Tylenol) 325 Mg Tab 325-650 MG PO Q6 PRN for Pain Albuterol Sulfate (Proair Respiclick) 108 Mcg/Act Aer 2 PUFFS INH Q4H PRN for Shortness of Breath Allopurinol (Zyloprim) 100 Mg Tab 100 MG PO QAM Azelastine Hcl (Astelin Nasal [place]) 200 Sprays/30 Ml [place] 2 SPRAYS TEOFILO BID Calcium Carbonate-Vitamin D (Oyster Shell Calcium/D3 500-400 mg-Unit) 1 Tab Tab 1 TAB PO BID Cyclosporine (Ophth) (Restasis) 0.05 % Emu 1 DROP OP BID Duloxetine HCl (Cymbalta) 30 Mg Cap 30 MG PO HS Fentanyl (Fentanyl) 37.5 Mcg/Hr Dis 37.5 MCG TD Q72H Fluticasone Prop/Salmeterol (Advair Diskus 500/50 60 Dose) 1 Ea Aerp 1 PUFFS INH BID Fluticasone Propionate (Nasal) (Flonase Allergy Relief) 50 Mcg/Act Spr 2 SPRAYS TEOFILO DAILY Gabapentin (Neurontin) 300 Mg Cap 300 MG PO HS, CAP Montelukast Sodium (Singulair) 10 Mg Tab 10 MG PO HS Multiple Vitamins W/ Minerals (Centrum) 1 Tab Tab 1 TAB PO QAM Omeprazole (Prilosec) 20 Mg Capcr 20 MG PO DAILY Oxycodone Ir (Roxicodone Ir) 5 Mg Tab 5 MG PO Q6H PRN for Pain Ranitidine (Zantac) 300 Mg Tab 300 MG PO HS Rivaroxaban (Xarelto) 15 Mg Tab 15 MG PO QAM TAKE WITH THE LARGEST MEAL OF THE DAY. Ropinirole HCl (Ropinirole HCl) 1 Mg Tab 1 TAB PO HS Tiotropium [place] (Spiriva Handihaler) 30 Puff/540 Mcg Aerp 1 CAP INH DAILY for 30 Days, #30 CAP 3 Refills Discharge Exam Generally feeling much better, dyspnea and difficulty breathing is in her baseline patient feeling okay to go home Review of Systems: Constitutional: No fever, No chills, No sweats, No weight loss, No weakness , No fatigue, No problem reported Eyes: No worsening of vision, No eye pain, No redness, No discharge, No diplopia, No problem reported ENT: No hearing loss, No unusual epistaxis, No nasal symptoms, No sore throat, No tinnitus, No dental problems, No trouble swallowing, No problem reported Respiratory: + shortness of breath (In her baseline), No cough, No sputum, No wheezing, No dyspnea on exertion, No dyspnea at rest, No hemoptysis, No problem reported Cardiovascular: No chest pain, No orthopnea, No PND, No edema, No claudication, No palpitations, No problem reported Abdomen: No pain, No nausea, No vomiting, No diarrhea, No constipation, No GI bleeding, No problem reported Musculoskeletal: No joint pain, No muscle pain, No swelling, No calf pain, No problem reported Genitourinary - Female: No dysuria, No urinary frequency, No urinary urgency , No urinary incontinence, No urinary retention, No hematuria, No dysmenorrhea, No menorrhagia, No metrorrhagia, No rash, No vaginal bleeding, No vaginal discharge, No vaginal itching, No vulvodynia, No , No problem reported Neurologic: No memory loss, No paralysis, No weakness, No numbness/tingling , No vertigo, No balance problems, No problem reported Psychiatric: No depression symptoms, No anhedonism, No anxiety, No insomnia , No substance abuse, No problem reported Endocrine: No fatigue, No excessive thirst, No excessive urination, No problem reported Hematologic / Lymphatic: No abnormal bleeding/bruising, No clotting problems , No swollen lymph nodes, No night sweats, No problem reported Integumentary: No rash, No itch, No new/changing skin lesions, No color change, No bleeding, No problem reported Physical Exam: General Appearance: WD/WN, + obese Eyes: normal inspection, PERRL ENT: normal ENT inspection, hearing grossly normal Neck: supple, no adenopathy Respiratory/Chest: chest non-tender, normal breath sounds, no respiratory distress, no accessory muscle use, + decreased breath sounds Cardiovascular: regular rate, rhythm, no edema, no gallop, no JVD, no murmur Abdomen / GI: normal bowel sounds, non tender, soft, no organomegaly, no pulsatile mass Extremities: normal inspection, no calf tenderness, normal capillary refill , + swelling (Trace edema bilateral lower extremity) 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 Stable mediastinal and hilar lymphadenopathy 2. Stable right lower lobe lung herniation 3. Multinodular thyroid gland 4. Stable right middle lobe pulmonary nodules versus central lymph nodes 5. 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 Right lower lobe airspace opacities, atelectatic versus pneumonia. - per outpatient pulm note patient does not want to further work up pulmonary nodules Taper down Solu-Medrol, sent home with oral prednisone, tapering dose patient sees Dr. 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 chest physiotherapy PT/OT CARLITOS - CPAP ordered HS Chronic pain - continue narcotics as prescribed CKD III - renal function is at baseline Hyperglycemia secondary to steroid administration - recent A1c is 5.8 - bsgs running a bit high, will tighten ss and add lantus Gout - cont Allopurinol Paroxysmal AF - sinus on admission - cont Xarelto GERD - continue protonix Full code - Xarelto prophylaxis Dispo: patient from [facility], currently waiting to move into the [place] , possible discharge in day 1 or 2, Instructions / Follow-Up you have COPD / asthma exacerbation you need to cont 3 L nasal cannula at home will give you tapering dose of oral prednisone continue Mucinex for cough need to continue PT/OT you have CARLITOS, need to contine CPAP - you need to follow up with your primary care physician in 1 week, - take medication as instructed, never overdose or any misuse, or take with alcohol, because misuse of medicine may cause organ damage or , call me , or your primary care physician if have questions of discharge medicaitons. - call your primary care physician, or go to local emergency room if has any fever/chill, chest pain, shortness of breathing, nausea/vomiting/abdominal pain , facial droop/slurry speech/local weakness, or if has any questions. - fall precaution - diet as instructed Total Time Spent: Greater than 30 minutes This includes examination of the patient, discharge planning, medication reconciliation, and communication with other providers. Discharge Instructions Please refer to the electronic Patient Visit Report (Discharge Instructions) for additional information. Additional Copies To Tereso Mendez M.D.
== END 2018-07-10 14:03 | disposition home or self-care (01) | DRG 190 ==
LOC: C.EDB 14:23 → C.MED 17:44 → ENRESERV 18:45 → C.MED 20:52
PROVIDERS: ADMIT Internal Medicine; ATTEND Hospitalist
DX: J44.1 Chronic obstructive pulmonary disease with (acute) exacerbation (principal); J96.21 Acute and chronic respiratory failure with hypoxia; Z68.41 Body mass index [BMI] 40.0-44.9, adult; N17.9 Acute kidney failure, unspecified; F11.20 Opioid dependence, uncomplicated; N18.3 Chronic kidney disease, stage 3 (moderate); Z86.718 Personal history of other venous thrombosis and embolism; I12.9 Hypertensive chronic kidney disease with stage 1 through stage 4 chronic kidney disease, or unspecified chronic kidney disease; Z96.659 Presence of unspecified artificial knee joint; Z85.118 Personal history of other malignant neoplasm of bronchus and lung; J44.0 Chronic obstructive pulmonary disease with (acute) lower respiratory infection; I48.0 Paroxysmal atrial fibrillation; G47.33 Obstructive sleep apnea (adult) (pediatric); G89.29 Other chronic pain; M10.9 Gout, unspecified; R59.0 Localized enlarged lymph nodes; K21.9 Gastro-esophageal reflux disease without esophagitis; E66.01 Morbid (severe) obesity due to excess calories

== ENCOUNTER 2019-06-03 15:50 | Inpatient (IN) ==
[~2019-06-03 15:50] MED LIST changes: -ACET-1175 PO; -ADVIN50/60 INH; -ALBU18002 INH; -ALLO100T PO; -ASTN NAE; -CALC-439 PO; -CYCL0.052 OP; -CYM/30 PO; -FENT1DIS85 TD; -FLUT0.15 NAE; -GABA-113 PO; -INVAV1 IV; -MONT1TAB3 PO; -MULTTAB5 PO; -ONDA4TAB9 PO; -OXYC-90 PO; -POLY335019 PO; -PRLSR20 PO; -RANI300T2 PO; -RIVA1.5T PO; -ROPI1TAB29 PO; -SPRIN/30 INH; +fentaNYL 25 MCG/HR TDSY TD SCH
--- NOTE | 2019-06-03 16:14 | Emergency Department Note ---
Entered by Tonie Hassan acting as a scribe for Buddy Crump DO History of Present Illness General Chief complaint: Fever Stated complaint: SOB Time Seen by Provider: 06/03/19 15:57 Source: patient History of Present Illness Onset (ago): hour(s) 6 Location: head (fever), upper extremity (chills) and lower extremity (chills ) Pain Consistency: + other (episode ) Associated symptoms: + fever/chills Treatments prior to arrival: none The patient is an 88 year old female who presents to the ED with complaints of an episode of a fever that began 6 hours ago. The patient states that she has had a fever and chills all day. The patient states that she is having difficulties breathing since last night. She reports that her arms and legs are extremely cold. The patient denies abdominal pain. She reports that she coughs in the morning. She states that she urinates all the time but that is not un usual. The charge nurse states that the patient has a fever of 101.7 in the ED. Home Medications Home Medications Medication Instructions Recorded Confirmed Type Prilosec OTC 20 mg PO DAILY 09/07/18 02/02/19 History Spiriva with HandiHaler 1 cap INHALATION DAILY 09/07/18 02/02/19 History allopurinol 100 mg PO DAILY 09/07/18 02/02/19 History duloxetine 30 mg PO HS 09/07/18 02/02/19 History fluticasone propion-salmeterol 1 inh INHALATION BID 09/07/18 02/02/19 History [Advair Diskus] gabapentin 600 mg PO HS 09/07/18 02/02/19 History losartan 50 mg PO DAILY 09/07/18 02/02/19 History montelukast [Singulair] 10 mg PO PM 09/07/18 02/02/19 History albuterol sulfate 2.5 mg INH Q6H #90 ml 09/11/18 02/02/19 Rx Restasis MultiDose 1 drp OPHTHALMIC (EYE) Q12H 11/06/18 02/02/19 History acetaminophen 325 mg PO Q6H PRN MDD 3G 11/06/18 02/02/19 History albuterol sulfate [Ventolin HFA] 2 puff INHALATION Q4H PRN 11/06/18 02/02/19 History azelastine 2 spray INTRANASAL DAILY 11/06/18 02/02/19 History fluticasone propionate [Flonase 2 spray INTRANASAL DAILY 11/06/18 02/02/19 History Allergy Relief] multivitamin 1 tab PO DAILY 11/06/18 02/02/19 History Xarelto 15 mg PO DAILY 02/02/19 02/02/19 History acetaminophen [Tylenol Extra 1,000 mg PO HS 02/02/19 02/02/19 History Strength] ciprofloxacin HCl 2 drp OPHTHALMIC (EYE) TID 02/02/19 02/02/19 History diclofenac sodium [Voltaren] 2 g TOPICAL BID 02/02/19 02/02/19 History docusate sodium 100 mg PO BID 02/02/19 02/02/19 History famotidine 20 mg PO HS 02/02/19 02/02/19 History miconazole nitrate [Lotrimin AF 1 spray TOPICAL BID PRN 02/02/19 02/02/19 History Powder] ropinirole [Requip] 1 mg PO TID 02/02/19 02/02/19 History sodium chloride [[place] Nasal] 1 spray INTRANASAL UD PRN 02/02/19 02/02/19 History benzonatate [Tessalon Perles] 100 mg PO TID #30 cap 02/08/19 Rx fentanyl 1 patch TRANSDERMAL Q72H #1 ea 02/08/19 Rx furosemide [Lasix] 20 mg PO DAILY #30 tab 02/08/19 Rx gabapentin 200 mg PO [id number] #120 cap 02/08/19 Rx oxycodone 5 mg PO Q4H PRN #12 tab 02/08/19 Rx polyethylene glycol 3350 [Miralax] 17 g PO BID #60 ea 02/08/19 Rx Allergies Allergy/AdvReac Type Severity Reaction Status Date / Time enoxaparin Allergy Intermediate RASH, Verified 06/03/19 21:32 PRURITUS Past Med/Surg History Medical History Chronic back pain RLS (restless legs syndrome) Chronic diastolic CHF (congestive heart failure) (Chronic) COPD exacerbation (Acute) Hypoxia (Acute) Hypertension (Chronic) Asthma (Chronic) CKD (chronic kidney disease), stage III (Chronic) DCIS (ductal carcinoma in situ) (~2013) Deep vein blood clot of right lower extremity History of pulmonary embolism Lung cancer (~2010) Spasmodic dysphonia Surgical History H/O mastectomy History of back surgery Hx of appendectomy Hx of hernia repair Hx of hysterectomy Hx of resection of liver Hx of total knee replacement Family History Other Family history non-contributory Social History Preferred Language: Estonian Communication Ability: Effective 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 and A total of 10 systems reviewed and were otherwise negative Physical Exam Vital Signs Vital Signs - 24 hr 06/03/19 15:50 06/03/19 15:58 06/03/19 16:04 Temperature 38.7 C H Temperature Source Oral Sepsis Recent Fever Within 48 Hours Yes Sepsis New/Unexplained Change in Mental Status Yes Sepsis Action Taken by Nursing No Action Required Pulse Rate 112 H 118 H 126 H Pulse Rate [Left Finger] Pulse Rate from SpO2 Sensor 114 H 119 H Respiratory Rate 20 29 H 29 H Respiratory Effort / Characteristics Non-Labored Respiratory Depth Normal Blood Pressure 160/91 H 160/91 H Blood Pressure [Left Arm] Blood Pressure Mean 114 114 Blood Pressure Mean [Left Arm] Pulse Oximetry 94 95 99 Oxygen Delivery Method Nasal Cannula Oxygen Flow Rate 2 4 4 06/03/19 16:11 06/03/19 17:00 06/03/19 18:00 Temperature Temperature Source Sepsis Recent Fever Within 48 Hours Sepsis New/Unexplained Change in Mental Status Sepsis Action Taken by Nursing Pulse Rate 121 H 119 H Pulse Rate [Left Finger] Pulse Rate from SpO2 Sensor 121 H 119 H Respiratory Rate 26 H 25 H Respiratory Effort / Characteristics Respiratory Depth Blood Pressure Blood Pressure [Left Arm] Blood Pressure Mean Blood Pressure Mean [Left Arm] Pulse Oximetry 96 95 96 Oxygen Delivery Method Nasal Cannula Oxygen Flow Rate 6 4 4 06/03/19 18:04 06/03/19 19:00 06/03/19 20:00 Temperature Temperature Source Sepsis Recent Fever Within 48 Hours Sepsis New/Unexplained Change in Mental Status Sepsis Action Taken by Nursing Pulse Rate 122 H 124 H Pulse Rate [Left Finger] 116 H Pulse Rate from SpO2 Sensor 122 H 122 H Respiratory Rate 26 H 26 H 25 H Respiratory Effort / Characteristics Respiratory Depth Blood Pressure Blood Pressure [Left Arm] 145/77 H Blood Pressure Mean Blood Pressure Mean [Left Arm] 99 Pulse Oximetry 96 93 95 Oxygen Delivery Method Room Air Oxygen Flow Rate 4 4 06/03/19 20:03 06/03/19 20:15 06/03/19 21:00 Temperature 38.0 C H Temperature Source Oral Sepsis Recent Fever Within 48 Hours Sepsis New/Unexplained Change in Mental Status Sepsis Action Taken by Nursing Pulse Rate 114 H 111 H Pulse Rate [Left Finger] 110 H Pulse Rate from SpO2 Sensor 114 H 110 H Respiratory Rate 28 H 24 19 Respiratory Effort / Characteristics Non-Labored Respiratory Depth Blood Pressure Blood Pressure [Left Arm] 139/58 L Blood Pressure Mean Blood Pressure Mean [Left Arm] 85 Pulse Oximetry 97 96 95 Oxygen Delivery Method Nasal Cannula Oxygen Flow Rate 4 GENERAL: Patient is awake and alert. She is somewhat anxious appearing and appears to be uncomfortable. EYES: The conjunctivae are clear. The pupils are round and reactive. EARS, NOSE, MOUTH AND THROAT: The nose is without any evidence of any deformity. Mucous membranes are moist tongue is midline NECK: The neck is nontender and supple. RESPIRATORY: Diminished breath sounds are noted throughout. There are rales in the right lower lung field. There is no tachypnea. CARDIOVASCULAR: Tachycardic rate with a regular rhythm was noted. There was no definite murmur. GASTROINTESTINAL: The abdomen is moderately distended. There is no tenderness guarding or rigidity noted. MUSCULOSKELETAL/EXTREMITIES: There is no evidence of gross deformity full range of motion is noted in the hips and shoulders SKIN: Pedal edema was noted bilaterally. NEUROLOGIC: Patient is awake alert and oriented to person place and situation. Strength was symmetric. Procedures Free Text Procedures Central Venous Catheter Indication: Sepsis Catheter type: Triple Lumen Location: Left internal jugular Verbal consent was obtained after the risks and benefits were explained, including but not limited to pneumothorax, hemothorax, vessel injury, bleeding, scarring, infection, pain, and bone/joint/nerve damage. At this time, the risks of the procedure are less than the risks of NOT performing the procedure. A time out was taken and the correct patient and site identified. The patient was placed in the supine position and the skin was prepped in the standard fashion with chlorhexidine and full sterile drapes applied. The proper landmarks were identified with ultrasound, anesthetized with 1% lidocaine without epinephrine, and the needle was inserted through the skin in the standard fashion. The needle was carefully advanced into blood vessel lumen under ultrasound guidance. The guidewire was placed uneventfully. The vessel is dilated and the catheter was placed. It was sutured into position. There was good blood return from all ports. The patient tolerated the procedure well and there were no complications. Post procedure x-ray was normal. Course 1605: Past medical records reviewed. The patient was evaluated in room C4. A complete history and physical exam was performed. 0: I reevaluated the patient at this time and he is resting comfortably. I discussed the test results and treatment plan with the patient. He verbally agrees and understands. 3:I reevaluated the patient at this time and he is resting comfortably. I discussed the patients case with Dr. Byrne, [facility]. He agreed to admit the patient for further management. Consultations Consultation #1: I reevaluated the patient at this time and he is resting comfortably. I discussed the patients case with Dr. Byrne, [facility]. He agreed to admit the patient for further management. Time: 20:33 Administered Medications Acetaminophen (Tylenol) 650 mg PO Q4H PRN PRN Reason: Pain or Fever Stop: 07/03/19 22:46 Last Admin: 06/04/19 06:19 Dose: 650 mg Documented by: [id number] Albuterol (Duoneb) 3 ml NEB QIDR [facility] Stop: 07/04/19 07:59 Last Admin: 06/04/19 15:15 Dose: 3 ml Documented by: [id number] Admin: 06/04/19 11:09 Dose: 3 ml Documented by: [id number] Admin: 06/04/19 07:06 Dose: 3 ml Documented by: [id number] Allopurinol (Zyloprim) 100 mg PO DAILY [facility] Stop: 07/04/19 08:59 Last Admin: 06/04/19 08:31 Dose: 100 mg Documented by: [id number] Docusate Sodium (Colace) 100 mg PO BID [facility] Stop: 07/04/19 08:59 Last Admin: 06/04/19 08:31 Dose: 100 mg Documented by: [id number] Fentanyl (Duragesic) 25 mcg TD Q72H [facility] Stop: 06/18/19 07:59 Last Admin: 06/04/19 08:29 Dose: 25 mcg Documented by: [id number] Fentanyl (Duragesic) 12 mcg TD Q72H [facility] Stop: 06/18/19 07:59 Last Admin: 06/04/19 08:30 Dose: 12 mcg Documented by: [id number] Gabapentin (Neurontin) 200 mg PO [id number] [facility] Stop: 07/04/19 06:59 Last Admin: 06/04/19 14:22 Dose: 200 mg Documented by: [id number] Admin: 06/04/19 06:21 Dose: 200 mg Documented by: [id number] Piperacillin Sod/Tazobactam (Sod 4.5 gm/ Dextrose) 120 mls @ 30 mls/hr IV Q8H [facility]; Protocol Stop: 06/14/19 01:59 Last Infusion: 06/04/19 13:14 Dose: 0 mls/hr Documented by: [id number] Admin: 06/04/19 09:54 Dose: 30 mls/hr Documented by: [id number] Infusion: 06/04/19 05:53 Dose: 0 mls/hr Documented by: [id number] Admin: 06/04/19 01:53 Dose: 30 mls/hr Documented by: [id number] Vancomycin HCl 2,000 mg/ (Sodium Chloride) 540 mls @ 200 mls/hr IV Q18H [facility]; Protocol Stop: 06/14/19 11:59 Last Admin: 06/04/19 12:45 Dose: 200 mls/hr Documented by: [id number] Miscellaneous (Fentanyl Patch Remove & Waste) 1 ea N/A Q72H [facility] Stop: 07/04/19 07:58 Last Admin: 06/04/19 08:33 Dose: 1 ea Documented by: [id number] Cosigned by: [id number] Miscellaneous (Fentanyl Patch Remove & Waste) 1 ea N/A Q72H [facility] Stop: 07/04/19 07:58 Last Admin: 06/04/19 08:32 Dose: 1 ea Documented by: [id number] Cosigned by: [id number] Polyethylene Glycol (Miralax Powder Packet) 17 gm PO BID [facility] Stop: 07/03/19 22:46 Last Admin: 06/04/19 08:29 Dose: 17 gm Documented by: [id number] Admin: 06/03/19 23:53 Dose: Not Given Documented by: [id number] Polyethylene Glycol (Miralax Powder Packet) 17 gm PO DAILY [facility] Stop: 07/04/19 10:59 Last Admin: 06/04/19 11:58 Dose: Not Given Documented by: [id number] Rivaroxaban (Xarelto) 15 mg PO DAILY [facility] Stop: 07/04/19 08:59 Last Admin: 06/04/19 08:30 Dose: 15 mg Documented by: [id number] Ropinirole HCl (Requip) 1 mg PO TID [facility] Stop: 07/04/19 08:59 Last Admin: 06/04/19 14:22 Dose: 1 mg Documented by: [id number] Admin: 06/04/19 06:20 Dose: 1 mg Documented by: [id number] Discontinued Medications Piperacillin Sod/Tazobactam Sod (Zosyn) 4.5 gm in 120 mls @ 240 mls/hr IV NOW ONE Stop: 06/03/19 19:51 Last Infusion: 06/03/19 20:17 Dose: 0 mls/hr Documented by: [id number] Admin: 06/03/19 19:50 Dose: 240 mls/hr Documented by: [id number] Acetaminophen (Ofirmev) 1,000 mg in 100 mls @ 400 mls/hr IV NOW STA Stop: 06/03/19 19:36 Last Infusion: 06/03/19 20:08 Dose: 0 mls/hr Documented by: [id number] Admin: 06/03/19 19:49 Dose: 400 mls/hr Documented by: [id number] Sodium Chloride (Nss 1000ml) 500 mls @ 999 mls/hr IV .Q31M ONE Stop: 06/03/19 19:52 Last Infusion: 06/03/19 20:17 Dose: 0 mls/hr Documented by: [id number] Admin: 06/03/19 19:50 Dose: 999 mls/hr Documented by: [id number] Vancomycin HCl 2,500 mg/ (Sodium Chloride) 550 mls @ 200 mls/hr IV NOW ONE Stop: 06/04/19 01:59 Last Infusion: 06/04/19 02:19 Dose: 0 mls/hr Documented by: [id number] Admin: 06/03/19 23:34 Dose: 200 mls/hr Documented by: [id number] Sodium Chloride (Nss 1000ml) 1,000 mls @ 999 mls/hr IV .Q1H1M [facility] Stop: 06/04/19 04:39 Last Infusion: 06/04/19 04:46 Dose: 0 mls/hr Documented by: [id number] Admin: 06/04/19 03:45 Dose: 999 mls/hr Documented by: [id number] Medical Decision Making Differential Diagnosis Differential diagnosis: Etiologies such as viral syndrome, otitis, pharyngitis, pneumonia, influenza, meningitis, urinary tract infection, septic arthritis, soft tissue infectious process, intra-abdominal process, sepsis, bacteremia, as well as others were entertained. Medical Records Attestation: I reviewed the patient's medical records. Home Medications Current Medication List: was personally reviewed by me Laboratory Data Attestation: I reviewed the patient's lab results. Result diagrams: 06/04/19 06:44 06/03/19 19:17 Lab Results 06/03/19 06/03/19 06/03/19 Range/Units 18:05 19:17 19:17 WBC 34.40 H* (4.8-10.8) K/uL RBC 2.83 L (4.2-5.4) M/uL Hgb 10.1 L (12.0-16.0) g/dL Hct 30.4 L (37-47) % MCV 107.4 H (80-100) fL MCH 35.7 H (25-34) pg MCHC 33.2 (32-36) g/dL RDW Std Deviation 61.0 H (36.4-46.3) fL RDW Coeff of Marta 15.6 H (11.5-14.5) % Plt Count 53 L (130-400) K/uL MPV 13.6 H (7.4-10.4) fL Immature Gran % (Auto) 0.8 % Neut % (Auto) 88.3 % Lymph % (Auto) 2.3 % [place] % (Auto) 8.5 % Eos % (Auto) 0.1 % Baso % (Auto) 0.0 % Immature Gran # (Auto) 0.26 H (0.00-0.02) K/uL Neut # (Auto) 30.36 H (1.4-6.5) K/uL Lymph # (Auto) 0.80 L (1.2-3.4) K/uL [place] # (Auto) 2.93 H (0.11-0.59) K/uL Eos # (Auto) 0.04 (0-0.5) K/uL Baso # (Auto) 0.01 (0-0.2) K/uL Platelet Estimate Decreased L (Normal) PT 11.9 (9.0-12.0) Seconds INR 1.2 H (0.9-1.1) APTT 21.7 (21.0-31.0) Seconds PTT Ratio 0.8 VBG pH (7.36-7.41) VBG pCO2 (38-50) mmHg VBG pO2 mmHg VBG HCO3 mmol/L VBG O2 Saturation % VBG Base Excess mEq/L Barometric Pressure mm/Hg Sodium (136-145) mmol/L Potassium (3.5-5.1) mmol/L Chloride (98-107) mmol/L Carbon Dioxide (21-32) mmol/L Anion Gap (3-11) BUN (7-18) mg/dl Creatinine (0.6-1.2) mg/dl Est Cr Clr Drug Dosing Est GFR ( Amer) Est GFR (Non-Af Amer) BUN/Creatinine Ratio (10-20) Glucose (70-99) mg/dl Lactate (0.4-2.0) mmol/L Calcium (8.5-10.1) mg/dl Magnesium (1.8-2.4) mg/dl Total Bilirubin (0.2-1) mg/dl AST (15-37) U/L ALT (12-78) U/L Alkaline Phosphatase (45-117) U/L Troponin I (0-0.045) ng/ml C-Reactive Protein (0-0.29) mg/dl Total Protein (6.4-8.2) gm/dl Albumin (3.4-5.0) gm/dl Globulin (2.5-4.0) gm/dl Albumin/Globulin Ratio (0.9-2) Procalcitonin (0-0.5) ng/ml Urine Color Yellow Urine Appearance Clear (Clear) Urine pH 8.0 H (4.5-7.5) Ur Specific [place] 1.012 (1.000-1.030) Urine Protein Negative (Negative) Urine Glucose (UA) Negative (Negative) Urine Ketones Negative (Negative) Urine Blood Trace H (Negative) Urine Nitrite Positive A (Negative) Urine Bilirubin Negative (Negative) Urine Urobilinogen Negative (Negative) Ur Leukocyte Esterase Negative (Negative) Urine WBC (Auto) 1-5 (0-5) /hpf Urine RBC (Auto) 5-10 H (0-4) /hpf U Hyaline Cast (Auto) 0 (0-5) /lpf U Epithel Cells (Auto) 0-5 (0-5) /lpf Urine Bacteria (Auto) 4+ H (Negative) 06/03/19 06/03/19 06/03/19 Range/Units 19:17 19:17 19:17 WBC (4.8-10.8) K/uL RBC (4.2-5.4) M/uL Hgb (12.0-16.0) g/dL Hct (37-47) % MCV (80-100) fL MCH (25-34) pg MCHC (32-36) g/dL RDW Std Deviation (36.4-46.3) fL RDW Coeff of Marta (11.5-14.5) % Plt Count (130-400) K/uL MPV (7.4-10.4) fL Immature Gran % (Auto) % Neut % (Auto) % Lymph % (Auto) % [place] % (Auto) % Eos % (Auto) % Baso % (Auto) % Immature Gran # (Auto) (0.00-0.02) K/uL Neut # (Auto) (1.4-6.5) K/uL Lymph # (Auto) (1.2-3.4) K/uL [place] # (Auto) (0.11-0.59) K/uL Eos # (Auto) (0-0.5) K/uL Baso # (Auto) (0-0.2) K/uL Platelet Estimate (Normal) PT (9.0-12.0) Seconds INR (0.9-1.1) APTT (21.0-31.0) Seconds PTT Ratio VBG pH (7.36-7.41) VBG pCO2 (38-50) mmHg VBG pO2 mmHg VBG HCO3 mmol/L VBG O2 Saturation % VBG Base Excess mEq/L Barometric Pressure mm/Hg Sodium 138 (136-145) mmol/L Potassium 4.0 (3.5-5.1) mmol/L Chloride 103 (98-107) mmol/L Carbon Dioxide 30 (21-32) mmol/L Anion Gap 5.0 (3-11) BUN 25 H (7-18) mg/dl Creatinine 0.98 (0.6-1.2) mg/dl Est Cr Clr Drug Dosing Not Reportable Est GFR ( Amer) 60.1 Est GFR (Non-Af Amer) 51.9 BUN/Creatinine Ratio 26.1 H (10-20) Glucose 111 H (70-99) mg/dl Lactate 0.9 (0.4-2.0) mmol/L Calcium 8.9 (8.5-10.1) mg/dl Magnesium 1.9 (1.8-2.4) mg/dl Total Bilirubin 0.6 (0.2-1) mg/dl AST 42 H (15-37) U/L ALT 39 (12-78) U/L Alkaline Phosphatase 139 H (45-117) U/L Troponin I < 0.015 (0-0.045) ng/ml C-Reactive Protein 1.68 H (0-0.29) mg/dl Total Protein 6.0 L (6.4-8.2) gm/dl Albumin 3.1 L (3.4-5.0) gm/dl Globulin 2.9 (2.5-4.0) gm/dl Albumin/Globulin Ratio 1.1 (0.9-2) Procalcitonin 0.65 H (0-0.5) ng/ml Urine Color Urine Appearance (Clear) Urine pH (4.5-7.5) Ur Specific [place] (1.000-1.030) Urine Protein (Negative) Urine Glucose (UA) (Negative) Urine Ketones (Negative) Urine Blood (Negative) Urine Nitrite (Negative) Urine Bilirubin (Negative) Urine Urobilinogen (Negative) Ur Leukocyte Esterase (Negative) Urine WBC (Auto) (0-5) /hpf Urine RBC (Auto) (0-4) /hpf U Hyaline Cast (Auto) (0-5) /lpf U Epithel Cells (Auto) (0-5) /lpf Urine Bacteria (Auto) (Negative) 06/03/19 Range/Units 19:17 WBC (4.8-10.8) K/uL RBC (4.2-5.4) M/uL Hgb (12.0-16.0) g/dL Hct (37-47) % MCV (80-100) fL MCH (25-34) pg MCHC (32-36) g/dL RDW Std Deviation (36.4-46.3) fL RDW Coeff of Marta (11.5-14.5) % Plt Count (130-400) K/uL MPV (7.4-10.4) fL Immature Gran % (Auto) % Neut % (Auto) % Lymph % (Auto) % [place] % (Auto) % Eos % (Auto) % Baso % (Auto) % Immature Gran # (Auto) (0.00-0.02) K/uL Neut # (Auto) (1.4-6.5) K/uL Lymph # (Auto) (1.2-3.4) K/uL [place] # (Auto) (0.11-0.59) K/uL Eos # (Auto) (0-0.5) K/uL Baso # (Auto) (0-0.2) K/uL Platelet Estimate (Normal) PT (9.0-12.0) Seconds INR (0.9-1.1) APTT (21.0-31.0) Seconds PTT Ratio VBG pH 7.40 (7.36-7.41) VBG pCO2 50 (38-50) mmHg VBG pO2 44 mmHg VBG HCO3 31 mmol/L VBG O2 Saturation 76.5 % VBG Base Excess 4.9 mEq/L Barometric Pressure 727.9 mm/Hg Sodium (136-145) mmol/L Potassium (3.5-5.1) mmol/L Chloride (98-107) mmol/L Carbon Dioxide (21-32) mmol/L Anion Gap (3-11) BUN (7-18) mg/dl Creatinine (0.6-1.2) mg/dl Est Cr Clr Drug Dosing Est GFR ( Amer) Est GFR (Non-Af Amer) BUN/Creatinine Ratio (10-20) Glucose (70-99) mg/dl Lactate (0.4-2.0) mmol/L Calcium (8.5-10.1) mg/dl Magnesium (1.8-2.4) mg/dl Total Bilirubin (0.2-1) mg/dl AST (15-37) U/L ALT (12-78) U/L Alkaline Phosphatase (45-117) U/L Troponin I (0-0.045) ng/ml C-Reactive Protein (0-0.29) mg/dl Total Protein (6.4-8.2) gm/dl Albumin (3.4-5.0) gm/dl Globulin (2.5-4.0) gm/dl Albumin/Globulin Ratio (0.9-2) Procalcitonin (0-0.5) ng/ml Urine Color Urine Appearance (Clear) Urine pH (4.5-7.5) Ur Specific [place] (1.000-1.030) Urine Protein (Negative) Urine Glucose (UA) (Negative) Urine Ketones (Negative) Urine Blood (Negative) Urine Nitrite (Negative) Urine Bilirubin (Negative) Urine Urobilinogen (Negative) Ur Leukocyte Esterase (Negative) Urine WBC (Auto) (0-5) /hpf Urine RBC (Auto) (0-4) /hpf U Hyaline Cast (Auto) (0-5) /lpf U Epithel Cells (Auto) (0-5) /lpf Urine Bacteria (Auto) (Negative) Imaging Data Radiologist's Impression: Radiology results as stated below per my review and the radiologist's interpretation: XR chest 1V portable HISTORY: line placement COMPARISON: Chest 06/03/2019. FINDINGS: Mild interstitial pulmonary edema and trace bilateral pleural effusions persist. The heart remains borderline enlarged. Interval placement left jugular central venous catheter which terminates at the brachiocephalic/SVC junction. No pneumothorax. Old, healed right-sided rib fractures. Patchy bibasilar densities persist. IMPRESSION: 1. The left jugular central venous catheter terminates at the brachiocephalic/SVC junction. 2. No pneumothorax. 3. Mild interstitial pulmonary edema and trace bilateral pleural effusions persist. Electronically signed by: Darshan Yin M.D. 06/03/2019 7:50 PM XR chest 1V portable CLINICAL HISTORY: Sepsis dyspnea COMPARISON STUDY: 02/02/2019 FINDINGS: Moderate stable coronary megaly. Prominent pulmonary vasculature. Distinct prominence of the interstitial bronchovascular markings also unaltered. Diaphragms are smooth. There are no focal infiltrative change. IMPRESSION: Stable components of cardiomegaly and interstitial pulmonary edematous change. The above report was generated using voice recognition software. It may contain grammatical, syntax or spelling errors. Electronically signed by: Wm Browne M.D. 06/03/2019 4:26 PM ECG Data Attestation: I personally reviewed and interpreted this ECG as follows: Indication: other (fever, body chills) Rate (beats per minute): 113 Rhythm: atrial fibrillation Findings: + PVC Comparison ECG Date: from (09/07/2018) Change: the following changes noted (low voltage changes ) MDM Narrative The patient is an 88-year-old female who presented to the emergency department for an evaluation of chills and fever. The patient complained of generalized weakness and was sent to the emergency department for further evaluation. The patient had a cough and clinically I felt her condition was consistent with a pneumonia. The patient was a very difficult venous access patient. Multiple attempts were made and significant amount of time was spent trying to obtain laboratory studies. The patient's chest x-ray did not appear to be consistent with a definite pneumonia but given her lung sounds her fever and her cough I felt she clinically did have a pneumonia. She was found a very elevated white blood cell count. She was felt to be not improving so a central line was placed for further venous access IV antibiotic and menstruation fluid administration and laboratory draws. I discussed the patient's laboratory and radiographic carlos dies with her. I also obtain further history from her family member. I did discuss her case with the on-call [facility] hospitalist group. They have agreed to evaluate the patient in the emergency department for further management disposition. Impression & Plan Pneumonia, Fever, Acute hypotension Critical Care Time Critical Care Time: Yes Total Critical Care Time: 60 I have personally spent greater than 60 minutes of critical care time in the direct management of this patient. This includes bedside care, interpretation of diagnostic studies, and testing, discussion with consultants, patient, and family members, and other required patient management activities. This 60 minutes is in excess of all separately billable procedures. Discharge Plan Visit Data *Final* Discharge Date/Time: 06/03/19 21:55 Chief Complaint: Fever Stated Complaint: SOB ED Provider: Buddy Crump Discharge Problem: Pneumonia, Fever, Acute hypotension Patient Disposition: Admitted As Inpatient Discharge Instructions Interventions: ED Discharge Assessment Last Done: 06/03/19 21:55 Discharge Problem: Pneumonia Qualifiers: Pneumonia type: due to unspecified organism Laterality: unspecified laterality Lung location: unspecified part of lung Qualified Code(s): J18.9 - Pneumonia, unspecified organism Fever Qualifiers: Fever type: unspecified Qualified Code(s): R50.9 - Fever, unspecified The scribe's documentation has been prepared under my direction and personally reviewed by me in its entirety. I confirm that the note above accurately reflects all work, treatment, procedures, and medical decision making performed by me.
--- NOTE | 2019-06-03 16:28 | XRay Report ---
XR chest 1V portable CLINICAL HISTORY: Sepsis dyspnea COMPARISON STUDY: 02/02/2019 FINDINGS: Moderate stable coronary megaly. Prominent pulmonary vasculature. Distinct prominence of th e interstitial bronchovascular markings also unaltered. Diaphragms are smooth. There are no focal inf iltrative change. IMPRESSION: Stable components of cardiomegaly and interstitial pulmonary edematous change. The above report was generated using voice recognition software. It may contain grammatical, syntax or spelling errors. Electronically signed by: Wm Browne M.D. 06/03/2019 4:26 PM
[2019-06-03 18:27] LABS: Appearance Urine Clear (Clear); Bacteria Urine Automated 4+ (Negative); Bilirubin Urine Negative (Negative); Blood Urine Trace (Negative); Cast Urine Automated 0 /lpf (0-5); Color Urine Yellow; Epithelial Cell Urine Auto 0-5 /lpf (0-5); Glucose Urine UA Negative (Negative); Ketones Urine Negative (Negative); Leukocyte Esterase Urine Negative (Negative); Nitrite Urine Positive (Negative); Protein Urine Negative (Negative); Specific Gravity Urine 1.012 (1.000-1.030); Urobilinogen Urine Negative (Negative)
[2019-06-03] MEDS ORDERED: ACETAMINOPHEN 1,000 MG/100 ML VIAL IV STA (19:22)
[2019-06-03] MEDS ORDERED: PIPERACILLIN/TAZOBACTAM 4.5 GM/120 ML BAG IV ONE (19:22)
[2019-06-03] MEDS ORDERED: PIPERACILL/TAZOBAC CONSULT ACTIVE PRN ×2 (19:22→22:47)
[2019-06-03] MEDS ORDERED: SODIUM CHLORIDE 0.9% 1000ML 500 ML IV ONE (19:22)
[2019-06-03 19:48] LABS: Base Excess VBG 4.9 mEq/L; Oxygen Saturation VBG 76.5 %; pH VBG 7.4 (7.36-7.41)
[2019-06-03 19:50] LABS: INR 1.2 (0.9-1.1); Partial Thromboplastin Ratio 0.8; Partial Thromboplastin Time 21.7 Seconds (21.0-31.0); Prothrombin Time 11.9 Seconds (9.0-12.0)
--- NOTE | 2019-06-03 19:51 | XRay Report ---
XR chest 1V portable HISTORY: line placement COMPARISON: Chest 06/03/2019. FINDINGS: Mild interstitial pulmonary edema and trace bilateral pleural effusions persist. The heart remains borderline enlarged. Interval placement left jugular central venous catheter which terminates at the brachiocephalic/SVC junction. No pneumothorax. Old, healed right-sided rib fractures. Patchy bibasilar densities persist. IMPRESSION: 1. The left jugular central venous catheter terminates at the brachiocephalic/SVC junction. 2. No pneumothorax. 3. Mild interstitial pulmonary edema and trace bilateral pleural effusions persist. Electronically signed by: Darshan Yin M.D. 06/03/2019 7:50 PM
[2019-06-03 19:54] LABS: Hematocrit (blood only) 30.4 % (37-47); Hemoglobin 10.1 g/dL (12.0-16.0); Mean Corpuscular Hgb Conc 33.2 g/dL (32-36); Mean Corpuscular Volume 107.4 fL (80-100); RDW Coefficient of Variation 15.6 % (11.5-14.5); Red Blood Count 2.83 M/uL (4.2-5.4)
[2019-06-03 20:02] LABS: Alanine Aminotransferase 39 U/L (12-78); Albumin Level 3.1 gm/dl (3.4-5.0); BUN Creatinine Ratio 26.1 (10-20); Blood Urea Nitrogen 25 mg/dl (7-18); C Reactive Protein 1.68 mg/dl (0-0.29); Calcium 8.9 mg/dl (8.5-10.1); Carbon Dioxide 30 mmol/L (21-32); Chloride 103 mmol/L (98-107); Est GFR (African American) 60.1; Est GFR (Non-African American) 51.9; Glucose 111 mg/dl (70-99); Magnesium 1.9 mg/dl (1.8-2.4); Sodium 138 mmol/L (136-145)
[2019-06-03 20:07] LABS: Albumin Globulin Ratio 1.1 (0.9-2); Alkaline Phosphatase 139 U/L (45-117); Aspartate Aminotransferase 42 U/L (15-37); Basophils # (auto) 0.01 K/uL (0-0.2); Bilirubin,Total 0.6 mg/dl (0.2-1); Eosinophils # (auto) 0.04 K/uL (0-0.5); Eosinophils % (auto) 0.1 %; Globulin 2.9 gm/dl (2.5-4.0); Immature Granulocytes # (auto) 0.26 K/uL (0.00-0.02); Immature Granulocytes % (auto) 0.8 %; Lymphocytes % (auto) 2.3 %; Mean Platelet Volume 13.6 fL (7.4-10.4); Monocytes # (auto) 2.93 K/uL (0.11-0.59); Monocytes % (auto) 8.5 %; Neutrophils # (auto) 30.36 K/uL (1.4-6.5); Neutrophils % (auto) 88.3 %; Platelet Count 53 K/uL (130-400); Platelet Estimate Decreased (Normal); Troponin I < 0.015 ng/ml (0-0.045)
--- NOTE | 2019-06-03 22:33 | History & Physical Report ---
Date of Service June 03, 2019 Assessment & Plan (1) Sepsis associated hypotension: Multifactorial: Urinary tract infection, COPD exacerbation, cellulitis of bilateral lower extremities. History of MRSA. We will continue to hydrate patient per septic protocol, her ejection fraction is 55 to 60% range as noted and January 2018. Admit to monitored bed on vancomycin IV and Zosyn IV. Present on Admission?: Yes (2) UTI (urinary tract infection): Follow urine culture and sensitivities. Hydrate with IV fluids as noted above. Smyth catheter. Present on Admission?: Yes (3) COPD exacerbation: Antibiotics as noted above. Duonebs every 4 hours while awake and every 2 hours when necessary. Guaifenesin extended release 600 mg p.o. twice daily. Sputum Gram stain and culture. Nasal cannula oxygen, titrate to keep pulse ox 92 to 94%. Present on Admission?: Yes (4) Cellulitis of both lower extremities: Antibiotics as above. Consult wound care. Present on Admission?: Yes (5) MRSA (methicillin resistant staph aureus) culture positive: Present on Admission?: Yes (6) Chronic respiratory failure: Acute on chronic respiratory failure with hypoxia- Primarily associated COPD exacerbation at this time. Treat as above. Present on Admission?: Yes (7) Chronic diastolic CHF (congestive heart failure): Chronic diastolic CHF/hypertension/CKD stage III- Looks dehydrated at this point. Hold furosemide 20 mg p.o. daily and losartan 50 mg p.o. daily Present on Admission?: Yes (8) CKD (chronic kidney disease), stage III: See above Present on Admission?: Yes (9) Hypertension: Hold any antihypertensives due to borderline blood pressure. Present on Admission?: Yes (10) Pulmonary embolism: Continue Xarelto 15 mg p.o. daily Present on Admission?: Yes History of Present Illness Chief Complaint: The patient presents to the emergency department with a fever and chills and generalized fatigue that began about 6 hours prior to arrival. Primary Care Provider: [facility] The patient is a 88-year-old female resident of [facility], who was brought to the emergency department after reporting fevers and chills that began 6 hours prior to arrival. She reports that she began to have difficulty breathing the previous evening, but denies any cough. She reports that she urinates frequently at her baseline, and does not complain of any more discomfort than usual. She appears fatigued and dyspneic as she is answering. She does have dressings on bilateral lower extremities. Allergies Allergy/AdvReac Type Severity Reaction Status Date / Time enoxaparin Allergy Intermediate RASH, Verified 06/03/19 21:32 PRURITUS Home Medications Home Medications Medication Instructions Recorded Confirmed Type Prilosec OTC 20 mg PO DAILY 09/07/18 02/02/19 History Spiriva with HandiHaler 1 cap INHALATION DAILY 09/07/18 02/02/19 History allopurinol 100 mg PO DAILY 09/07/18 02/02/19 History duloxetine 30 mg PO HS 09/07/18 02/02/19 History fluticasone propion-salmeterol 1 inh INHALATION BID 09/07/18 02/02/19 History [Advair Diskus] gabapentin 600 mg PO HS 09/07/18 02/02/19 History losartan 50 mg PO DAILY 09/07/18 02/02/19 History montelukast [Singulair] 10 mg PO PM 09/07/18 02/02/19 History albuterol sulfate 2.5 mg INH Q6H #90 ml 09/11/18 02/02/19 Rx Restasis MultiDose 1 drp OPHTHALMIC (EYE) Q12H 11/06/18 02/02/19 History acetaminophen 325 mg PO Q6H PRN MDD 3G 11/06/18 02/02/19 History albuterol sulfate [Ventolin HFA] 2 puff INHALATION Q4H PRN 11/06/18 02/02/19 History azelastine 2 spray INTRANASAL DAILY 11/06/18 02/02/19 History fluticasone propionate [Flonase 2 spray INTRANASAL DAILY 11/06/18 02/02/19 History Allergy Relief] multivitamin 1 tab PO DAILY 11/06/18 02/02/19 History Xarelto 15 mg PO DAILY 02/02/19 02/02/19 History acetaminophen [Tylenol Extra 1,000 mg PO HS 02/02/19 02/02/19 History Strength] ciprofloxacin HCl 2 drp OPHTHALMIC (EYE) TID 02/02/19 02/02/19 History diclofenac sodium [Voltaren] 2 g TOPICAL BID 02/02/19 02/02/19 History docusate sodium 100 mg PO BID 02/02/19 02/02/19 History famotidine 20 mg PO HS 02/02/19 02/02/19 History miconazole nitrate [Lotrimin AF 1 spray TOPICAL BID PRN 02/02/19 02/02/19 History Powder] ropinirole [Requip] 1 mg PO TID 02/02/19 02/02/19 History sodium chloride [Archer Nasal] 1 spray INTRANASAL UD PRN 02/02/19 02/02/19 History benzonatate [Tessalon Perles] 100 mg PO TID #30 cap 02/08/19 Rx fentanyl 1 patch TRANSDERMAL Q72H #1 ea 02/08/19 Rx furosemide [Lasix] 20 mg PO DAILY #30 tab 02/08/19 Rx gabapentin 200 mg PO EEC202 #120 cap 02/08/19 Rx oxycodone 5 mg PO Q4H PRN #12 tab 02/08/19 Rx polyethylene glycol 3350 [Miralax] 17 g PO BID #60 ea 02/08/19 Rx Past Med/Surg History Medical History Chronic back pain RLS (restless legs syndrome) Chronic diastolic CHF (congestive heart failure) (Chronic) COPD exacerbation (Acute) Hypoxia (Acute) Hypertension (Chronic) Asthma (Chronic) CKD (chronic kidney disease), stage III (Chronic) DCIS (ductal carcinoma in situ) (~2012) Deep vein blood clot of right lower extremity History of pulmonary embolism Lung cancer (~2010) Spasmodic dysphonia Surgical History H/O mastectomy History of back surgery Hx of appendectomy Hx of hernia repair Hx of hysterectomy Hx of resection of liver Hx of total knee replacement Family History Other Family history non-contributory Social History Preferred Language: Portuguese Communication Ability: Effective After School Coordinator Required: No Beliefs That Will Affect Care: None Current Living Situation: Penitentiary Other Information That Helps Us Care for You: No Feels Safe at Home: Yes Safety Concerns: Feels Safe At This Time Smoking Status: Never smoker Second Hand Exposure: No Hx Alcohol Use: Yes Hx Substance Use: No Review of Systems Review of Systems: The patient denies chest pain, palpitations, cough, sore throat, sweats, nausea, vomiting, diarrhea , constipation, abdominal pain, pelvic pain, blood in urine or stool, dysuria, lightheadedness, dizziness, headache, loss of consciousness, rash, abnormal bruising or bleeding, imbalance, focal weakness, numbness or tingling in arms or legs, back or neck pain, or night sweats. The review of systems is otherwise negative other than for that already noted above, and at least 10 systems have been reviewed. Physical Exam Physical Exam: The patient is awake, somewhat lethargic, appears fatigued and dyspneic, lying in bed and in mild distress. HEENT--PERRL, EOMI, mucous membranes and oropharynx very dry. Neck--supple. No JVD. No bruits. Thyroid normal, trachea midline, no adenopathy. Heart--normal S1 and S2. No murmurs, rubs or gallops. Lungs--few coarse breath sounds bilaterally, overall diminished. Abdomen--normal bowel sounds and soft. Nontender. Nondistended. Extremities--no cyanosis or clubbing. No edema. There are good distal pulses b/l. Dermatologic--bilateral lower extremities with erythema, eczematous rash with dressings over top. Neurologic--cranial nerves II through XII grossly intact. Rheumatologic--normal range of motion. Psychiatric--mildly lethargic. Results & Data Vital Signs (Past 12 Hours) Vital Signs Temp Pulse Pulse Resp BP BP Pulse Ox 06/03/19 21:55 118 H 20 139/58 L 99 06/03/19 21:00 111 H 19 95 06/03/19 20:15 100.4 F H 110 H 24 139/58 L 96 06/03/19 20:03 114 H 28 H 97 06/03/19 20:00 124 H 25 H 95 06/03/19 19:00 122 H 26 H 93 06/03/19 18:04 116 H 26 H 145/77 H 96 06/03/19 18:00 119 H 25 H 96 06/03/19 17:00 121 H 26 H 95 06/03/19 16:11 96 06/03/19 16:04 126 H 29 H 99 06/03/19 15:58 118 H 29 H 160/91 H 95 06/03/19 15:50 101.7 F H 112 H 20 160/91 H 94 Laboratory Results Laboratory Results WBC 34.40 K/uL (4.8-10.8) H* 06/03/19 19:17 RBC 2.83 M/uL (4.2-5.4) L 06/03/19 19:17 Hgb 10.1 g/dL (12.0-16.0) L 06/03/19 19:17 Hct 30.4 % (37-47) L 06/03/19 19:17 MCV 107.4 fL (80-100) H 06/03/19 19:17 MCH 35.7 pg (25-34) H 06/03/19 19:17 MCHC 33.2 g/dL (32-36) 06/03/19 19:17 RDW Std Deviation 61.0 fL (36.4-46.3) H 06/03/19 19:17 RDW Coeff of Marta 15.6 % (11.5-14.5) H 06/03/19 19:17 Plt Count 53 K/uL (130-400) L 06/03/19 19:17 MPV 13.6 fL (7.4-10.4) H 06/03/19 19:17 Immature Gran % (Auto) 0.8 % 06/03/19 19:17 Neut % (Auto) 88.3 % 06/03/19 19:17 Lymph % (Auto) 2.3 % 06/03/19 19:17 [place] % (Auto) 8.5 % 06/03/19 19:17 Eos % (Auto) 0.1 % 06/03/19 19:17 Baso % (Auto) 0.0 % 06/03/19 19:17 Immature Gran # (Auto) 0.26 K/uL (0.00-0.02) H 06/03/19 19:17 Neut # (Auto) 30.36 K/uL (1.4-6.5) H 06/03/19 19:17 Lymph # (Auto) 0.80 K/uL (1.2-3.4) L 06/03/19 19:17 [place] # (Auto) 2.93 K/uL (0.11-0.59) H 06/03/19 19:17 Eos # (Auto) 0.04 K/uL (0-0.5) 06/03/19 19:17 Baso # (Auto) 0.01 K/uL (0-0.2) 06/03/19 19:17 Platelet Estimate Decreased (Normal) L 06/03/19 19:17 PT 11.9 Seconds (9.0-12.0) 06/03/19 19:17 INR 1.2 (0.9-1.1) H 06/03/19 19:17 APTT 21.7 Seconds (21.0-31.0) 06/03/19 19:17 PTT Ratio 0.8 06/03/19 19:17 VBG pH 7.40 (7.36-7.41) 06/03/19 19:17 VBG pCO2 50 mmHg (38-50) 06/03/19 19:17 VBG pO2 44 mmHg 06/03/19 19:17 VBG HCO3 31 mmol/L 06/03/19 19:17 VBG O2 Saturation 76.5 % 06/03/19 19:17 VBG Base Excess 4.9 mEq/L 06/03/19 19:17 Barometric Pressure 727.9 mm/Hg 06/03/19 19:17 Sodium 138 mmol/L (136-145) 06/03/19 19:17 Potassium 4.0 mmol/L (3.5-5.1) 06/03/19 19:17 Chloride 103 mmol/L (98-107) 06/03/19 19:17 Carbon Dioxide 30 mmol/L (21-32) 06/03/19 19:17 Anion Gap 5.0 (3-11) 06/03/19 19:17 BUN 25 mg/dl (7-18) H 06/03/19 19:17 Creatinine 0.98 mg/dl (0.6-1.2) 06/03/19 19:17 Est Cr Clr Drug Dosing Not Reportable 06/03/19 19:17 Est GFR ( Amer) 60.1 06/03/19 19:17 Est GFR (Non-Af Amer) 51.9 06/03/19 19:17 BUN/Creatinine Ratio 26.1 (10-20) H 06/03/19 19:17 Glucose 111 mg/dl (70-99) H 06/03/19 19:17 Lactate 0.9 mmol/L (0.4-2.0) 06/03/19 19:17 Calcium 8.9 mg/dl (8.5-10.1) 06/03/19 19:17 Magnesium 1.9 mg/dl (1.8-2.4) 06/03/19 19:17 Total Bilirubin 0.6 mg/dl (0.2-1) 06/03/19 19:17 AST 42 U/L (15-37) H 06/03/19 19:17 ALT 39 U/L (12-78) 06/03/19 19:17 Alkaline Phosphatase 139 U/L (45-117) H 06/03/19 19:17 Troponin I < 0.015 ng/ml (0-0.045) 06/03/19 19:17 C-Reactive Protein 1.68 mg/dl (0-0.29) H 06/03/19 19:17 Total Protein 6.0 gm/dl (6.4-8.2) L 06/03/19 19:17 Albumin 3.1 gm/dl (3.4-5.0) L 06/03/19 19:17 Globulin 2.9 gm/dl (2.5-4.0) 06/03/19 19:17 Albumin/Globulin Ratio 1.1 (0.9-2) 06/03/19 19:17 Procalcitonin 0.65 ng/ml (0-0.5) H 06/03/19 19:17 Urine Color Yellow 06/03/19 18:05 Urine Appearance Clear (Clear) 06/03/19 18:05 Urine pH 8.0 (4.5-7.5) H 06/03/19 18:05 Ur Specific [place] 1.012 (1.000-1.030) 06/03/19 18:05 Urine Protein Negative (Negative) 06/03/19 18:05 Urine Glucose (UA) Negative (Negative) 06/03/19 18:05 Urine Ketones Negative (Negative) 06/03/19 18:05 Urine Blood Trace (Negative) H 06/03/19 18:05 Urine Nitrite Positive (Negative) A 06/03/19 18:05 Urine Bilirubin Negative (Negative) 06/03/19 18:05 Urine Urobilinogen Negative (Negative) 06/03/19 18:05 Ur Leukocyte Esterase Negative (Negative) 06/03/19 18:05 Urine WBC (Auto) 1-5 /hpf (0-5) 06/03/19 18:05 Urine RBC (Auto) 5-10 /hpf (0-4) H 06/03/19 18:05 U Hyaline Cast (Auto) 0 /lpf (0-5) 06/03/19 18:05 U Epithel Cells (Auto) 0-5 /lpf (0-5) 06/03/19 18:05 Urine Bacteria (Auto) 4+ (Negative) H 06/03/19 18:05 Nasal Screen MRSA (PCR) Positive (Negative) A 06/03/19 23:15 Diagnostic Findings [facility], [place] [phone] XRay Report Patient: EJ ADAM Date: 06/03/19 MR#: [id number]: [address] Acct ID:[id number]: [employer] Date: 1930[facility] Zip: [place] [id number] Age: 88Location: ED Sex: F Room/Bed: Att Phy: Diagnosis: SOB Sariah Phy: Broseley, CrestService Date: 06/03/19 Fam Phy: Broseley, CrestInterpreting Phy: Darshan Yin MD Admit Phy: Ordering Phy: Buddy Crump DO cc: ~ XR chest 1V portable HISTORY: line placement COMPARISON: Chest 06/03/2019. FINDINGS: Mild interstitial pulmonary edema and trace bilateral pleural effusions persist. The heart remains borderline enlarged. Interval placement left jugular central venous catheter which terminates at the brachiocephalic/SVC junction. No pneumothorax. Old, healed right-sided rib fractures. Patchy bibasilar densities persist. IMPRESSION: 1. The left jugular central venous catheter terminates at the brachiocephalic/SVC junction. 2. No pneumothorax. 3. Mild interstitial pulmonary edema and trace bilateral pleural effusions persist. Electronically signed by: Darshan Yin M.D. 06/03/2019 7:50 PM Dictated: 06/03/191948 Transcribed: 06/03/191948 Code Status & VTE Plan Code Status CPR but no mechanical ventilation VTE Prophylaxis Plan VTE Prophylaxis will be ordered: Yes PG Care Time/CCT Total # of Minutes Spent Total Time Spent with Patient: Total time spent is greater than 50% in coordination of care (as documented) at patient's floor/unit and/or counseling patient: (1) Hypertension Hypertension type: essential hypertension Qualified Code(s): I10 - Essential (primary) hypertension
[2019-06-03] MEDS ORDERED: ONDANSETRON INJ 2 MG/ML 2 ML VIAL IV PRN (22:47)
[2019-06-03] MEDS ORDERED: ALUMINUM/MAGNESIUM SUSP 30 ML UDC PO PRN (22:47)
[2019-06-03] MEDS ORDERED: ACETAMINOPHEN 325 MG TAB PO PRN (22:47)
[2019-06-03] MEDS ORDERED: MAGNESIUM HYDROXIDE SUSP 30 ML UDC PO PRN (22:47)
[2019-06-03] MEDS ORDERED: VANCOMYCIN CONSULT ACTIVE PRN (22:47)
[2019-06-03] MEDS ORDERED: VANCOMYCIN HCL 2,500 MG in SODIUM CHLORIDE 0.9% 500 ML IV ONE (23:15)
[2019-06-03] MEDS: POLYETHYLENE (MIRALAX) 17 GM PACK PO SCH (23:53)
[2019-06-04] MEDS: PIPERACILLIN/TAZOBACTAM 4.5 GM in DEXTROSE 5% 100 ML IV SCH ×3 (01:53→17:36)
[2019-06-04] MEDS ORDERED: SODIUM CHLORIDE 0.9% 1000ML 1,000 ML IV SCH (03:39)
[2019-06-04] MEDS: ROPINIROLE HCL 1 MG TABLET PO SCH ×3 (06:20→21:12)
[2019-06-04] MEDS: GABAPENTIN 100 MG CAP PO SCH ×2 (06:21→14:22)
[2019-06-04] MEDS: ALBUT/IPRATROP 3MG/0.5MG NEB 3 ML VIAL NEB SCH ×4 (07:06→19:46)
[2019-06-04 07:13] LABS: Hematocrit (blood only) 26.6 % (37-47); Hemoglobin 8.9 g/dL (12.0-16.0); Mean Corpuscular Hgb Conc 33.5 g/dL (32-36); Mean Corpuscular Volume 104.7 fL (80-100); Mean Platelet Volume 12.5 fL (7.4-10.4); Platelet Count 45 K/uL (130-400); RDW Standard Deviation 61.2 fL (36.4-46.3); Red Blood Count 2.54 M/uL (4.2-5.4); White Blood Count 34.56 K/uL (4.8-10.8)
--- NOTE | 2019-06-04 07:37 | Family Medicine Progress Note ---
Date of Service June 04, 2019 Assessment & Plan (1) UTI (urinary tract infection): #Sepsis associated hypotension: Multifactorial: Urinary tract infection, COPD exacerbation, cellulitis of bilateral lower extremities. -D/C'd Tele -For now broad-spectrum antibiotics with vancomycin and Zosyn narrow pending cultures and clinical improvement -MRSA Positive -Hypotensive on admission -She is currently status post 2 L sodium chloride -If she becomes hypotensive we will resuscitate with LR #UTI (urinary tract infection): Urinalysis on admission, patient denies symptoms of urinary tract infection. Urine cultures obtained. -Ucx Gram Neg Bacilli -Smyth catheter in place d/c pending pt/ot eval # COPD exacerbation: Patient has a history of COPD on 4 L of O2 at home -Nasal cannula oxygen, titrate to keep pulse ox 92 to 94%. -Currently on 4 L -Duonebs every 4 hours while awake and every 2 hours when necessary. -Start Budesonide 0.5 mg twice daily -Guaifenesin extended release 600 mg p.o. twice daily. #Cellulitis of both lower extremities: Consult wound care. #MRSA (methicillin resistant staph aureus) culture positive: #Chronic respiratory failure: Acute on chronic respiratory failure with hypoxia on 4 L home O2 -Primarily associated COPD exacerbation at this time. -COPD exacerbation #Chronic diastolic CHF (congestive heart failure): Chronic diastolic CHF/hypertension/CKD stage III- -Holding furosemide 20 mg p.o. daily and losartan 50 mix p.o. daily due to borderline blood pressure #CKD (chronic kidney disease), stage III: See above #Hypertension: Hold any antihypertensives due to borderline blood pressure. #Pulmonary embolism: Continue Xarelto 15 mg p.o. daily FENa: Heart healthy Code Status: DNI, living will, Yas today will bring today and leave a nursing DVT PPX: Xarelto Dispo: Telemetry Supervising Physician Co-Signing Physician Notes I personally examined the patient and verified all rene points of history and exam, discussed case, and agree with decision making with Dr Swift. Feeling better than last night. Breathing okay. No dysuria. Leg has been hurting worse. Vitals noted, in general she is awake and alert pleasant but fatigued no distress. HEENT normocephalic atraumatic mucous membranes moist. Breathing unlabored and overall clear without any significant rales rhonchi or wheezes good effort. No accessory muscle use. Right lower extremity with diffuse erythema up to her mid thigh and quite tender. No palpable areas of fluctuance Sepsisrelated to cellulitisimproving. Continue current antibiotics. Stable for MedSurg. Otherwise as above. Subjective Patient laying in bed this morning, no acute distress. Patient reports significant improvement in her symptoms overnight. Patient reports not feeling well yesterday at [facility], developing a fever and chills and presenting to the hospital. Patient was found to be septic, and was treated appropriately. No CODE STATUS was obtained upon admission, and a code discussion with the patient during which she stated she would like to remain DNI, she also has her medical power of workers compensation defense attorney Yas Mayersye will be bringing later today. Patient currently has an IJ in place, she is reporting that this is bothering her. My understanding is she had this placed because 1 of her arms is not accessible secondary to history of mastectomy, and the other was a difficult stick. Patient will likely continue to have the IJ in place for the remainder of the day at least. No acute concerns at present, all questions were answered. Physical Exam Physical Exam: General: Obese female laying in bed, in no acute distress with IJ in place HEENT: Normocephalic atraumatic Neck: Trachea midline Cardiac: Regular rate and rhythm, I did not appreciate any murmurs rubs or gallops, normal S1 normal S2, 3+ bilateral pedal edema, Respiratory: Coarse breath sounds bilaterally, negative rales, positive rhonchi, positive wheezing. GI: Normal bowel sounds MSK: Moves extremities Skin: Bilateral erythematous lower extremities, concerning for cellulitis Neuro: Alert and oriented Psych: Cooperative, a bit cantankerous Results & Data Vital Signs (Past 12 Hours) Vital Signs Temp Pulse Pulse Resp BP BP Pulse Ox 06/04/19 07:11 36.7 C 95 H 22 121/63 96 06/04/19 07:04 104 H 16 91 06/04/19 04:13 94 H 06/04/19 03:53 37.2 C 89 19 114/65 96 06/04/19 00:13 37.4 C 89 18 88/49 L 94 06/03/19 22:52 36.8 C 103 H 20 95/54 L 93 06/03/19 21:55 118 H 20 139/58 L 99 06/03/19 21:00 111 H 19 95 06/03/19 20:15 38.0 C H 110 H 24 139/58 L 96 06/03/19 20:03 114 H 28 H 97 06/03/19 20:00 124 H 25 H 95 Laboratory Results 06/04/19 06/03/19 06/03/19 Range/Units 06:44 23:15 19:17 WBC 34.56 H* (4.8-10.8) K/uL RBC 2.54 L (4.2-5.4) M/uL Hgb 8.9 L (12.0-16.0) g/dL Hct 26.6 L (37-47) % MCV 104.7 H (80-100) fL MCH 35.0 H (25-34) pg MCHC 33.5 (32-36) g/dL RDW Std Deviation 61.2 H (36.4-46.3) fL RDW Coeff of Marta 16.0 H (11.5-14.5) % Plt Count 45 L (130-400) K/uL MPV 12.5 H (7.4-10.4) fL Immature Gran % (Auto) % Neut % (Auto) % Lymph % (Auto) % Wood % (Auto) % Eos % (Auto) % Baso % (Auto) % Immature Gran # (Auto) (0.00-0.02) K/uL Neut # (Auto) (1.4-6.5) K/uL Lymph # (Auto) (1.2-3.4) K/uL Wood # (Auto) (0.11-0.59) K/uL Eos # (Auto) (0-0.5) K/uL Baso # (Auto) (0-0.2) K/uL Platelet Estimate (Normal) PT (9.0-12.0) Seconds INR (0.9-1.1) APTT (21.0-31.0) Seconds PTT Ratio VBG pH 7.40 (7.36-7.41) VBG pCO2 50 (38-50) mmHg VBG pO2 44 mmHg VBG HCO3 31 mmol/L VBG O2 Saturation 76.5 % VBG Base Excess 4.9 mEq/L Barometric Pressure 727.9 mm/Hg Sodium (136-145) mmol/L Potassium (3.5-5.1) mmol/L Chloride (98-107) mmol/L Carbon Dioxide (21-32) mmol/L Anion Gap (3-11) BUN (7-18) mg/dl Creatinine (0.6-1.2) mg/dl Est Cr Clr Drug Dosing Est GFR ( Amer) Est GFR (Non-Af Amer) BUN/Creatinine Ratio (10-20) Glucose (70-99) mg/dl Lactate (0.4-2.0) mmol/L Calcium (8.5-10.1) mg/dl Magnesium (1.8-2.4) mg/dl Total Bilirubin (0.2-1) mg/dl AST (15-37) U/L ALT (12-78) U/L Alkaline Phosphatase (45-117) U/L Troponin I (0-0.045) ng/ml C-Reactive Protein (0-0.29) mg/dl Total Protein (6.4-8.2) gm/dl Albumin (3.4-5.0) gm/dl Globulin (2.5-4.0) gm/dl Albumin/Globulin Ratio (0.9-2) Procalcitonin (0-0.5) ng/ml Urine Color Urine Appearance (Clear) Urine pH (4.5-7.5) Ur Specific [place] (1.000-1.030) Urine Protein (Negative) Urine Glucose (UA) (Negative) Urine Ketones (Negative) Urine Blood (Negative) Urine Nitrite (Negative) Urine Bilirubin (Negative) Urine Urobilinogen (Negative) Ur Leukocyte Esterase (Negative) Urine WBC (Auto) (0-5) /hpf Urine RBC (Auto) (0-4) /hpf U Hyaline Cast (Auto) (0-5) /lpf U Epithel Cells (Auto) (0-5) /lpf Urine Bacteria (Auto) (Negative) Nasal Screen MRSA (PCR) Positive A (Negative) 06/03/19 06/03/19 06/03/19 Range/Units 19:17 19:17 19:17 WBC (4.8-10.8) K/uL RBC (4.2-5.4) M/uL Hgb (12.0-16.0) g/dL Hct (37-47) % MCV (80-100) fL MCH (25-34) pg MCHC (32-36) g/dL RDW Std Deviation (36.4-46.3) fL RDW Coeff of Marta (11.5-14.5) % Plt Count (130-400) K/uL MPV (7.4-10.4) fL Immature Gran % (Auto) % Neut % (Auto) % Lymph % (Auto) % Wood % (Auto) % Eos % (Auto) % Baso % (Auto) % Immature Gran # (Auto) (0.00-0.02) K/uL Neut # (Auto) (1.4-6.5) K/uL Lymph # (Auto) (1.2-3.4) K/uL Wood # (Auto) (0.11-0.59) K/uL Eos # (Auto) (0-0.5) K/uL Baso # (Auto) (0-0.2) K/uL Platelet Estimate (Normal) PT (9.0-12.0) Seconds INR (0.9-1.1) APTT (21.0-31.0) Seconds PTT Ratio VBG pH (7.36-7.41) VBG pCO2 (38-50) mmHg VBG pO2 mmHg VBG HCO3 mmol/L VBG O2 Saturation % VBG Base Excess mEq/L Barometric Pressure mm/Hg Sodium 138 (136-145) mmol/L Potassium 4.0 (3.5-5.1) mmol/L Chloride 103 (98-107) mmol/L Carbon Dioxide 30 (21-32) mmol/L Anion Gap 5.0 (3-11) BUN 25 H (7-18) mg/dl Creatinine 0.98 (0.6-1.2) mg/dl Est Cr Clr Drug Dosing Not Reportable Est GFR ( Amer) 60.1 Est GFR (Non-Af Amer) 51.9 BUN/Creatinine Ratio 26.1 H (10-20) Glucose 111 H (70-99) mg/dl Lactate 0.9 (0.4-2.0) mmol/L Calcium 8.9 (8.5-10.1) mg/dl Magnesium 1.9 (1.8-2.4) mg/dl Total Bilirubin 0.6 (0.2-1) mg/dl AST 42 H (15-37) U/L ALT 39 (12-78) U/L Alkaline Phosphatase 139 H (45-117) U/L Troponin I < 0.015 (0-0.045) ng/ml C-Reactive Protein 1.68 H (0-0.29) mg/dl Total Protein 6.0 L (6.4-8.2) gm/dl Albumin 3.1 L (3.4-5.0) gm/dl Globulin 2.9 (2.5-4.0) gm/dl Albumin/Globulin Ratio 1.1 (0.9-2) Procalcitonin 0.65 H (0-0.5) ng/ml Urine Color Urine Appearance (Clear) Urine pH (4.5-7.5) Ur Specific [place] (1.000-1.030) Urine Protein (Negative) Urine Glucose (UA) (Negative) Urine Ketones (Negative) Urine Blood (Negative) Urine Nitrite (Negative) Urine Bilirubin (Negative) Urine Urobilinogen (Negative) Ur Leukocyte Esterase (Negative) Urine WBC (Auto) (0-5) /hpf Urine RBC (Auto) (0-4) /hpf U Hyaline Cast (Auto) (0-5) /lpf U Epithel Cells (Auto) (0-5) /lpf Urine Bacteria (Auto) (Negative) Nasal Screen MRSA (PCR) (Negative) 06/03/19 06/03/19 06/03/19 Range/Units 19:17 19:17 18:05 WBC 34.40 H* (4.8-10.8) K/uL RBC 2.83 L (4.2-5.4) M/uL Hgb 10.1 L (12.0-16.0) g/dL Hct 30.4 L (37-47) % MCV 107.4 H (80-100) fL MCH 35.7 H (25-34) pg MCHC 33.2 (32-36) g/dL RDW Std Deviation 61.0 H (36.4-46.3) fL RDW Coeff of Marta 15.6 H (11.5-14.5) % Plt Count 53 L (130-400) K/uL MPV 13.6 H (7.4-10.4) fL Immature Gran % (Auto) 0.8 % Neut % (Auto) 88.3 % Lymph % (Auto) 2.3 % Wood % (Auto) 8.5 % Eos % (Auto) 0.1 % Baso % (Auto) 0.0 % Immature Gran # (Auto) 0.26 H (0.00-0.02) K/uL Neut # (Auto) 30.36 H (1.4-6.5) K/uL Lymph # (Auto) 0.80 L (1.2-3.4) K/uL Wood # (Auto) 2.93 H (0.11-0.59) K/uL Eos # (Auto) 0.04 (0-0.5) K/uL Baso # (Auto) 0.01 (0-0.2) K/uL Platelet Estimate Decreased L (Normal) PT 11.9 (9.0-12.0) Seconds INR 1.2 H (0.9-1.1) APTT 21.7 (21.0-31.0) Seconds PTT Ratio 0.8 VBG pH (7.36-7.41) VBG pCO2 (38-50) mmHg VBG pO2 mmHg VBG HCO3 mmol/L VBG O2 Saturation % VBG Base Excess mEq/L Barometric Pressure mm/Hg Sodium (136-145) mmol/L Potassium (3.5-5.1) mmol/L Chloride (98-107) mmol/L Carbon Dioxide (21-32) mmol/L Anion Gap (3-11) BUN (7-18) mg/dl Creatinine (0.6-1.2) mg/dl Est Cr Clr Drug Dosing Est GFR ( Amer) Est GFR (Non-Af Amer) BUN/Creatinine Ratio (10-20) Glucose (70-99) mg/dl Lactate (0.4-2.0) mmol/L Calcium (8.5-10.1) mg/dl Magnesium (1.8-2.4) mg/dl Total Bilirubin (0.2-1) mg/dl AST (15-37) U/L ALT (12-78) U/L Alkaline Phosphatase (45-117) U/L Troponin I (0-0.045) ng/ml C-Reactive Protein (0-0.29) mg/dl Total Protein (6.4-8.2) gm/dl Albumin (3.4-5.0) gm/dl Globulin (2.5-4.0) gm/dl Albumin/Globulin Ratio (0.9-2) Procalcitonin (0-0.5) ng/ml Urine Color Yellow Urine Appearance Clear (Clear) Urine pH 8.0 H (4.5-7.5) Ur Specific [place] 1.012 (1.000-1.030) Urine Protein Negative (Negative) Urine Glucose (UA) Negative (Negative) Urine Ketones Negative (Negative) Urine Blood Trace H (Negative) Urine Nitrite Positive A (Negative) Urine Bilirubin Negative (Negative) Urine Urobilinogen Negative (Negative) Ur Leukocyte Esterase Negative (Negative) Urine WBC (Auto) 1-5 (0-5) /hpf Urine RBC (Auto) 5-10 H (0-4) /hpf U Hyaline Cast (Auto) 0 (0-5) /lpf U Epithel Cells (Auto) 0-5 (0-5) /lpf Urine Bacteria (Auto) 4+ H (Negative) Nasal Screen MRSA (PCR) (Negative) Medications Administered Current Inpatient Medications Acetaminophen (Tylenol) 650 mg PO Q4H PRN PRN Reason: Pain or Fever Stop: 07/03/19 22:46 Last Admin: 06/04/19 06:19 Dose: 650 mg Documented by: Al Hydrox/Mg Hydrox/Simethicone (Maalox) 15 ml PO Q4H PRN PRN Reason: Dyspepsia Stop: 07/03/19 22:46 Albuterol (Duoneb) 3 ml NEB QIDR [facility] Stop: 07/04/19 07:59 Last Admin: 06/04/19 07:06 Dose: 3 ml Documented by: Allopurinol (Zyloprim) 100 mg PO DAILY [facility] Stop: 07/04/19 08:59 Last Admin: 06/04/19 08:31 Dose: 100 mg Documented by: Docusate Sodium (Colace) 100 mg PO BID [facility] Stop: 07/04/19 08:59 Last Admin: 06/04/19 08:31 Dose: 100 mg Documented by: Duloxetine HCl (Cymbalta) 30 mg PO HS [facility] Stop: 07/04/19 20:59 Fentanyl (Duragesic) 25 mcg TD Q72H [facility] Stop: 06/18/19 07:59 Last Admin: 06/04/19 08:29 Dose: 25 mcg Documented by: Fentanyl (Duragesic) 12 mcg TD Q72H [facility] Stop: 06/18/19 07:59 Last Admin: 06/04/19 08:30 Dose: 12 mcg Documented by: Gabapentin (Neurontin) 200 mg PO [id number] [facility] Stop: 07/04/19 06:59 Last Admin: 06/04/19 06:21 Dose: 200 mg Documented by: Gabapentin (Neurontin) 600 mg PO HS [facility] Stop: 07/04/19 20:59 Piperacillin Sod/Tazobactam (Sod 4.5 gm/ Dextrose) 120 mls @ 30 mls/hr IV Q8H [facility]; Protocol Stop: 06/14/19 01:59 Last Admin: 06/04/19 09:54 Dose: 30 mls/hr Documented by: Vancomycin HCl 2,000 mg/ (Sodium Chloride) 540 mls @ 200 mls/hr IV Q18H [facility]; Protocol Stop: 06/14/19 11:59 Magnesium Hydroxide (Milk Of Magnesia) 30 ml PO Q12H PRN PRN Reason: Constipation Stop: 07/03/19 22:46 Miscellaneous (Fentanyl Patch Remove & Waste) 1 ea N/A Q72H [facility] Stop: 07/04/19 07:58 Last Admin: 06/04/19 08:33 Dose: 1 ea Documented by: Miscellaneous (Fentanyl Patch Check Placement) 1 ea N/A QS [facility] Stop: 07/04/19 15:59 Miscellaneous (Fentanyl Patch Remove & Waste) 1 ea N/A Q72H [facility] Stop: 07/04/19 07:58 Last Admin: 06/04/19 08:32 Dose: 1 ea Documented by: Miscellaneous (Fentanyl Patch Check Placement) 1 ea N/A QS [facility] Stop: 07/04/19 15:59 Miscellaneous Information (Consult) 1 ea N/A UD PRN PRN Reason: Consult Stop: 07/03/19 22:46 Miscellaneous Information (Consult) 1 ea N/A UD PRN PRN Reason: Consult Stop: 07/03/19 22:46 Montelukast Sodium (Singulair) 10 mg PO PM [facility] Stop: 07/04/19 20:59 Ondansetron HCl (Zofran) 4 mg IV Q6H PRN PRN Reason: Nausea Stop: 07/03/19 22:46 Polyethylene Glycol (Miralax Powder Packet) 17 gm PO BID [facility] Stop: 07/03/19 22:46 Last Admin: 06/04/19 08:29 Dose: 17 gm Documented by: Rivaroxaban (Xarelto) 15 mg PO DAILY [facility] Stop: 07/04/19 08:59 Last Admin: 06/04/19 08:30 Dose: 15 mg Documented by: Ropinirole HCl (Requip) 1 mg PO TID [facility] Stop: 07/04/19 08:59 Last Admin: 06/04/19 06:20 Dose: 1 mg Documented by: PG Care Time/CCT Total # of Minutes Spent Total Time Spent with Patient: Total time spent is greater than 50% in coordination of care (as documented) at patient's floor/unit and/or counseling patient: Resident Activity Tracking Resident Involvement: Resident Care Provided Care Provided: Adult Hospital Medicine
[2019-06-04] MEDS ORDERED: 12mcg patch: fentaNYL PATCH REMOVE & WASTE SCH (07:59)
[2019-06-04] MEDS ORDERED: 25mcg patch: fentaNYL PATCH REMOVE & WASTE SCH (07:59)
[2019-06-04] MEDS ORDERED: fentaNYL 12 MCG/HR TDSY TD SCH (08:00)
[2019-06-04] MEDS ORDERED: fentaNYL 25 MCG/HR TDSY TD SCH (08:00)
[2019-06-04] MEDS: POLYETHYLENE (MIRALAX) 17 GM PACK PO SCH ×3 (08:29→21:12)
[2019-06-04] MEDS: RIVAROXABAN 15 MG TAB PO SCH (08:30)
[2019-06-04] MEDS: ALLOPURINOL 100 MG TAB PO SCH (08:31)
[2019-06-04] MEDS: DOCUSATE SODIUM 100 MG CAP PO SCH ×2 (08:31→21:12)
[2019-06-04 10:58] LABS: Estimated Average Glucose 114 mg/dl; Hemoglobin A1C 5.6 % (4.5-5.6)
--- NOTE | 2019-06-04 11:15 | Infectious Disease Consult ---
Date of Consultation June 04, 2019 Assessment & Plan (1) Sepsis associated hypotension: Patient with sepsis likely from right lower extremity cellulitis, tract infection as well with urine growing gram-negative bacilli. For now, vancomycin and Zosyn will provide appropriate coverage, will adjust once further culture results are available. Will follow. (2) Cellulitis of both lower extremities: (3) UTI (urinary tract infection): History of Present Illness Reason for Consultation: Sepsis, multifactorial, UTI, COPD, bilateral lower extremity cellulitis Attending Physician: Ivan Marcus DO History of Present Illness 88-year-old female with history of COPD, hypertension, asthma, stage III chronic kidney disease, prior history of lung cancer, who was in usual state of health until 6 hours or so prior to admission when she had the onset of acute rigors. She noted significant increase in right lower extremity redness and swelling with pain. Was brought to the hospital, found to have evidence of sepsis, and has been started on vancomycin and Zosyn. Feeling slightly better this morning. Blood cultures are pending. Has abnormal urinalysis with cultures positive for gram-negative bacilli, no significant urinary symptoms noted. Allergies Allergy/AdvReac Type Severity Reaction Status Date / Time enoxaparin Allergy Intermediate RASH, Verified 06/03/19 21:32 PRURITUS Home Medications Home Medications Medication Instructions Recorded Confirmed Type Prilosec OTC 20 mg PO DAILY 09/07/18 02/02/19 History Spiriva with HandiHaler 1 cap INHALATION DAILY 09/07/18 02/02/19 History allopurinol 100 mg PO DAILY 09/07/18 02/02/19 History duloxetine 30 mg PO HS 09/07/18 02/02/19 History fluticasone propion-salmeterol 1 inh INHALATION BID 09/07/18 02/02/19 History [Advair Diskus] gabapentin 600 mg PO HS 09/07/18 02/02/19 History losartan 50 mg PO DAILY 09/07/18 02/02/19 History montelukast [Singulair] 10 mg PO PM 09/07/18 02/02/19 History albuterol sulfate 2.5 mg INH Q6H #90 ml 09/11/18 02/02/19 Rx Restasis MultiDose 1 drp OPHTHALMIC (EYE) Q12H 11/06/18 02/02/19 History acetaminophen 325 mg PO Q6H PRN MDD 3G 11/06/18 02/02/19 History albuterol sulfate [Ventolin HFA] 2 puff INHALATION Q4H PRN 11/06/18 02/02/19 History azelastine 2 spray INTRANASAL DAILY 11/06/18 02/02/19 History fluticasone propionate [Flonase 2 spray INTRANASAL DAILY 11/06/18 02/02/19 History Allergy Relief] multivitamin 1 tab PO DAILY 11/06/18 02/02/19 History Xarelto 15 mg PO DAILY 02/02/19 02/02/19 History acetaminophen [Tylenol Extra 1,000 mg PO HS 02/02/19 02/02/19 History Strength] ciprofloxacin HCl 2 drp OPHTHALMIC (EYE) TID 02/02/19 02/02/19 History diclofenac sodium [Voltaren] 2 g TOPICAL BID 02/02/19 02/02/19 History docusate sodium 100 mg PO BID 02/02/19 02/02/19 History famotidine 20 mg PO HS 02/02/19 02/02/19 History miconazole nitrate [Lotrimin AF 1 spray TOPICAL BID PRN 02/02/19 02/02/19 History Powder] ropinirole [Requip] 1 mg PO TID 02/02/19 02/02/19 History sodium chloride [[place] Nasal] 1 spray INTRANASAL UD PRN 02/02/19 02/02/19 History benzonatate [Tessalon Perles] 100 mg PO TID #30 cap 02/08/19 Rx fentanyl 1 patch TRANSDERMAL Q72H #1 ea 02/08/19 Rx furosemide [Lasix] 20 mg PO DAILY #30 tab 02/08/19 Rx gabapentin 200 mg PO [id number] #120 cap 02/08/19 Rx oxycodone 5 mg PO Q4H PRN #12 tab 02/08/19 Rx polyethylene glycol 3350 [Miralax] 17 g PO BID #60 ea 02/08/19 Rx Patient History Medical History Chronic back pain RLS (restless legs syndrome) Chronic diastolic CHF (congestive heart failure) (Chronic) COPD exacerbation (Acute) Hypoxia (Acute) Hypertension (Chronic) Asthma (Chronic) CKD (chronic kidney disease), stage III (Chronic) DCIS (ductal carcinoma in situ) (~2012) Deep vein blood clot of right lower extremity History of pulmonary embolism Lung cancer (~2010) Spasmodic dysphonia Surgical History H/O mastectomy History of back surgery Hx of appendectomy Hx of hernia repair Hx of hysterectomy Hx of resection of liver Hx of total knee replacement Family History Other Family history non-contributory Social History Preferred Language: Danish Communication Ability: Effective Weaving Inspector Required: No Beliefs That Will Affect Care: None Current Living Situation: Intermediate Other Information That Helps Us Care for You: No Feels Safe at Home: Yes Safety Concerns: Feels Safe At This Time Smoking Status: Never smoker Second Hand Exposure: No Hx Alcohol Use: Yes Hx Substance Use: No Review of Systems Review of Systems: All systems reviewed & are unremarkable except as noted in HPI & below Physical Exam Constitutional: WD/WN, vitals as above comfortable; no acute distress Eyes: PERRL, conjunctivae normal, anicteric sclerae ENMT: external ear and nose normal, oropharynx normal Neck: trachea midline, no thyromegaly neck nontender Respiratory: normal respiratory effort, lungs clear to auscultation normal percussion; does not use accessory muscles Cardiovascular: Rate/Rhythm: regular rate and regular rhythm Heart Sounds: normal S1 and normal S2; no gallop, no murmur and no cardiac rub Vessels: normal peripheral pulses; no JVD Gastrointestinal (Abdomen): normal bowel sounds, soft, nontender, no hepatosplenomegaly Musculoskeletal: no cyanosis or clubbing, extremities motor strength 5/5 Spine: thoracic spine normal to inspection and lumbar spine normal to inspection; no cervical spinal tenderness Skin: normal turgor and + erythema (Right lower extremity to above the knee) Neurologic: patellar DTR's 2+ bilat, sensation intact no focal motor deficits Psychiatric: A+Ox3, euthymic affect Orientation: cooperative Lymphatic: no cervical or axillary lymphadenopathy no inguinal lymphadenopathy Results & Data Vital Signs (Past 12 Hours) Vital Signs Temp Pulse Pulse Resp BP Pulse Ox 06/04/19 10:50 37.0 C 93 H 20 97/56 L 97 06/04/19 07:46 107 H 06/04/19 07:11 36.7 C 95 H 22 121/63 96 06/04/19 07:04 104 H 16 91 06/04/19 04:13 94 H 06/04/19 03:53 37.2 C 89 19 114/65 96 06/04/19 00:13 37.4 C 89 18 88/49 L 94 Laboratory Results Short CBC 06/03/19 06/04/19 Range/Units 19:17 06:44 WBC 34.40 H* 34.56 H* (4.8-10.8) K/uL Hgb 10.1 L 8.9 L (12.0-16.0) g/dL Hct 30.4 L 26.6 L (37-47) % Plt Count 53 L 45 L (130-400) K/uL BMP 06/03/19 19:17 Sodium 138 Potassium 4.0 Chloride 103 Carbon Dioxide 30 BUN 25 H Creatinine 0.98 Glucose 111 H Calcium 8.9 Cardiac Enzymes 06/03/19 Range/Units 19:17 Troponin I < 0.015 (0-0.045) ng/ml Liver Function 06/03/19 Range/Units 19:17 Total Bilirubin 0.6 (0.2-1) mg/dl AST 42 H (15-37) U/L ALT 39 (12-78) U/L Alkaline Phosphatase 139 H (45-117) U/L Albumin 3.1 L (3.4-5.0) gm/dl Urine 06/03/19 Range/Units 18:05 Urine Color Yellow Urine Appearance Clear (Clear) Urine pH 8.0 H (4.5-7.5) Ur Specific [place] 1.012 (1.000-1.030) Urine Protein Negative (Negative) Urine Glucose (UA) Negative (Negative) Diagnostic Findings Microbiology 06/03/19 18:05 Urine,Straight Cath Urine Culture - Preliminary Gram negative bacilli XR chest 1V portable HISTORY: line placement COMPARISON: Chest 06/03/2019. FINDINGS: Mild interstitial pulmonary edema and trace bilateral pleural effusions persist. The heart remains borderline enlarged. Interval placement left jugular central venous catheter which terminates at the brachiocephalic/SVC junction. No pneumothorax. Old, healed right-sided rib fractures. Patchy bibasilar densities persist. IMPRESSION: 1. The left jugular central venous catheter terminates at the brachiocephalic/SVC junction. 2. No pneumothorax. 3. Mild interstitial pulmonary edema and trace bilateral pleural effusions persist. Electronically signed by: Darshan Yin M.D. 06/03/2019 7:50 PM
--- NOTE | 2019-06-04 11:44 | Pharmacy Report ---
Pharmacy Abx Initial Consult - Date of Service June 04, 2019 - Pharmacy Dosing Scope Date of Consult: 06/03/19 Consultation requested by: Dr. Byrne Pharmacy is consulted to initiate Vancomycin and Zosyn IV dosing therapy, order appropriate labs and adjust drug dose/frequency. - Subjective The patient is a 88 year old F admitted on 06/03/19 21:28. - Objective Height: 5 ft 8 in Weight: 141.7 kg Vital Signs (Past 12hrs): Vital Signs Temp Pulse Pulse Resp BP Pulse Ox 06/04/19 11:12 93 H 14 96 06/04/19 10:50 37.0 C 93 H 20 97/56 L 97 06/04/19 07:46 107 H 06/04/19 07:11 36.7 C 95 H 22 121/63 96 06/04/19 07:04 104 H 16 91 06/04/19 04:13 94 H 06/04/19 03:53 37.2 C 89 19 114/65 96 06/04/19 00:13 37.4 C 89 18 88/49 L 94 Lab Results (24hrs): Laboratory Tests (24 Hours) 06/04/19 06/03/19 06/03/19 06:44 19:17 19:17 WBC 34.56 H* Neut # (Auto) Creatinine 0.98 Est Cr Clr Drug Dosing Not Reportable C-Reactive Protein 1.68 H Procalcitonin 0.65 H 06/03/19 19:17 WBC 34.40 H* Neut # (Auto) 30.36 H Creatinine Est Cr Clr Drug Dosing C-Reactive Protein Procalcitonin Micro Results: Microbiology 06/03/19 18:05 Urine,Straight Cath Urine Culture - Preliminary Gram negative bacilli 06/03/19 19:40 Aerobic Blood Culture - Pending Blood Anaerobic Blood Culture - Pending 06/03/19 19:17 Aerobic Blood Culture - Pending Blood Anaerobic Blood Culture - Pending Laboratory Tests 06/03/19 23:15 Nasal Screen MRSA (PCR) Positive A - Risk Factors for Resistance * None - Assessment & Plan Assessment 88 year old F admitted with sepsis secondary to bilateral lower extremity cellulitis vs UTI Started on IV Vancomycin and Zosyn for the above Plan Vancomycin for treatment of sepsis secondary to b/l LE cellulitis Vancomycin IV * Estimated PK Parameters: Vd 0.7 L/kg, Amaury 0.054 hr-1, t1/2 ~ 13 hrs * Loading dose: 2500 mg (~ 18 mg/kg) * Maintenance dose: 2000 mg IV (~ 14 mg/kg) every 18 hours * Goal trough level for cellulitis: 10 to 20 mcg/mL * Trough level ordered for 06/05/19 at 0530 * A less than traditional dose has been selected due to likelihood of drug accumulation in obese patient Piperacillin/tazobactam * 4.5 g bolus administered over 30 minutes, then 4.5 g IV extended infusion every 8 hours for CrCl greater than 20 mL/min * Aggressive dosing selected due to critically ill status/BMI 35 or more Pharmacy will continue to follow and will adjust dose/frequency as necessary. Thank you.
[2019-06-04] MEDS: VANCOMYCIN HCL 2,000 MG in SODIUM CHLORIDE 0.9% 500 ML IV SCH (12:45)
[2019-06-04] MEDS: CHECK FENTANYL SCH ×2 (16:23→16:24)
[2019-06-04] MEDS: BUDESONIDE 0.5 MG/2 ML VIAL (PULMICORT) NEB SCH (19:46)
[2019-06-04] MEDS: GABAPENTIN 600 MG TAB PO SCH (21:13)
[2019-06-04] MEDS: MONTELUKAST SODIUM 10 MG TABLET PO SCH (21:13)
[2019-06-04] MEDS: DULOXETINE HCL 30 MG CAP PO SCH (21:13)
[2019-06-05] MEDS: CHECK FENTANYL SCH ×6 (00:10→15:18)
[2019-06-05] MEDS: PIPERACILLIN/TAZOBACTAM 4.5 GM in DEXTROSE 5% 100 ML IV SCH ×3 (02:04→18:20)
[2019-06-05] MEDS ORDERED: VANCOMYCIN TROUGH ONE (05:30)
[2019-06-05] MEDS: VANCOMYCIN HCL 2,000 MG in SODIUM CHLORIDE 0.9% 500 ML IV SCH (06:17)
[2019-06-05] MEDS: GABAPENTIN 100 MG CAP PO SCH ×2 (06:18→13:34)
[2019-06-05 07:00] LABS: Creatinine Clr Calc Pharmacy 50.6 ml/min; Est GFR (Non-African American) 41.4
[2019-06-05] MEDS: ALBUT/IPRATROP 3MG/0.5MG NEB 3 ML VIAL NEB SCH ×4 (07:06→19:35)
[2019-06-05] MEDS: BUDESONIDE 0.5 MG/2 ML VIAL (PULMICORT) NEB SCH ×2 (07:06→19:35)
--- NOTE | 2019-06-05 07:41 | Family Medicine Progress Note ---
Date of Service June 05, 2019 Assessment & Plan (1) UTI (urinary tract infection): #Sepsis associated hypotension: Multifactorial: Urinary tract infection, COPD exacerbation, cellulitis of bilateral lower extremities. -MRSA Positive -For now broad-spectrum antibiotics with vancomycin and Zosyn narrow pending cultures and clinical improvement -Ucx grew ESBL Ecoli sensitive to amikacin, cefoxitin, ertapenem, gentamicin, imipenem, nitrofurantoin, Pipracil and tazobactam, tobramycin -Hypotensive on admission-> afberile & normotensive since -She is currently status post 2 L sodium chloride -If she becomes hypotensive we will resuscitate with LR #UTI (urinary tract infection): Urinalysis on admission, patient denies symptoms of urinary tract infection. Urine cultures obtained. -Ucx ESBL Ecoli - Sensitive to amikacin, cefoxitin, ertapenem, gentamicin, imipenem, nitrofurantoin, Pipracil and tazobactam, tobramycin - Continue Zosyn for now - On D/c will have to cover for uti and mrsa (considering concern for staph skin infection in mrsa positive pt) -Smyth catheter in place d/c pending pt/ot eval #Gram-negative bacteremia Likely source is urine, expect cultures to grow ESBL E. coli as above -Continue Zosyn for now, we will narrow pending results of culture # COPD exacerbation: Patient has a history of COPD on 4 L of O2 at home -Nasal cannula oxygen, titrate to keep pulse ox 92 to 94%. -Currently on 4 L -Duonebs every 4 hours while awake and every 2 hours when necessary. -Start Budesonide 0.5 mg twice daily -Guaifenesin extended release 600 mg p.o. twice daily. #Cellulitis of both lower extremities: Consult wound care. #MRSA (methicillin resistant staph aureus) culture positive: #Chronic respiratory failure: Acute on chronic respiratory failure with hypoxia on 4 L home O2 -Primarily associated COPD exacerbation at this time. -COPD exacerbation #Chronic diastolic CHF (congestive heart failure): Chronic diastolic CHF/hypertension/CKD stage III- -Holding furosemide 20 mg p.o. daily and losartan 50 mix p.o. daily due to borderline blood pressure #CKD (chronic kidney disease), stage III: See above #Hypertension: Hold any antihypertensives due to borderline blood pressure. #Pulmonary embolism: Continue Xarelto 15 mg p.o. daily FENa: Heart healthy Code Status: DNI, living will, Yas today will bring today and leave a nursing DVT PPX: Xarelto Dispo: Telemetry Supervising Physician Co-Signing Physician Notes I personally examined the patient and verified all rene points of history and exam, discussed case, and agree with decision making with Dr Swift. Feeling much better. Breathing better. No new complaints. Vitals noted, in general she is awake and alert pleasant but fatigued no distress. HEENT normocephalic atraumatic mucous membranes moist. Breathing unlabored no accessory muscle use good effort. Right lower extremity with diffuse erythema up to her mid thigh appears stable in distribution from yesterday, and now more dull maroon than bright red. Sepsisseems most likely related to cellulitis. It is concerning that she is growing ESBL in her urine and Pseudomonas in her blood. It seems that she could have multiple sites of infection. The Pseudomonas given that it is different than the bacteria in her urine, may be from venous stasis ulcers in her legs fitting with the cellulitis, or may be lung pathology. Either way continue Zosyn. Continue vancomycin given that the cellulitis easily could be MRSA as well. Once final sensitivities are back on the Pseudomonas, hopefully we will be able to construct an antibiotic regimen to treat the Pseudomonas and ESBL, and then likely transition her to something on the order of doxycycline for potential MRSA coverage with her cellulitis. Results & Data Vital Signs (Past 12 Hours) Vital Signs Temp Pulse Pulse Resp BP Pulse Ox 06/05/19 07:16 69 06/05/19 07:10 73 18 98 06/05/19 05:00 36.6 C 79 19 114/70 95 06/05/19 00:07 36.7 C 104 H 19 107/61 96 06/05/19 00:00 102 H 06/04/19 20:17 81 06/04/19 19:48 78 20 95 06/04/19 19:40 37.1 C 90 22 121/72 92 PG Care Time/CCT Total # of Minutes Spent Total Time Spent with Patient: Total time spent is greater than 50% in coordination of care (as documented) at patient's floor/unit and/or counseling patient: Resident Activity Tracking Resident Involvement: Resident Care Provided Care Provided: Adult [facility] Medicine
[2019-06-05 07:57] LABS: Albumin Level 2.6 gm/dl (3.4-5.0); BUN Creatinine Ratio 25.2 (10-20); Calcium 8.8 mg/dl (8.5-10.1); Creatinine Clr Calc Pharmacy 48.1 ml/min; Est GFR (African American) 45.2; Potassium 3.8 mmol/L (3.5-5.1)
[2019-06-05 07:59] LABS: Albumin Globulin Ratio 0.8 (0.9-2); Bilirubin,Total 0.4 mg/dl (0.2-1); Globulin 3.1 gm/dl (2.5-4.0); Total Protein 5.7 gm/dl (6.4-8.2)
[2019-06-05 08:11] LABS: Basophils # (auto) 0.02 K/uL (0-0.2); Basophils % (auto) 0.1 %; Eosinophils # (auto) 0.08 K/uL (0-0.5); Eosinophils % (auto) 0.4 %; Hematocrit (blood only) 26.6 % (37-47); Hemoglobin 8.7 g/dL (12.0-16.0); Immature Granulocytes # (auto) 0.15 K/uL (0.00-0.02); Immature Granulocytes % (auto) 0.8 %; Lymphocytes % (auto) 9.9 %; Mean Corpuscular Hgb Conc 32.7 g/dL (32-36); Mean Corpuscular Volume 107.3 fL (80-100); Mean Platelet Volume 12.7 fL (7.4-10.4); Monocytes # (auto) 2.35 K/uL (0.11-0.59); Monocytes % (auto) 12.3 %; Neutrophils % (auto) 76.5 %; Platelet Count 42 K/uL (130-400); RDW Coefficient of Variation 16.2 % (11.5-14.5); RDW Standard Deviation 63.6 fL (36.4-46.3); Red Blood Count 2.48 M/uL (4.2-5.4)
[2019-06-05] MEDS: POLYETHYLENE (MIRALAX) 17 GM PACK PO SCH ×3 (08:14→20:40)
[2019-06-05] MEDS: ROPINIROLE HCL 1 MG TABLET PO SCH ×3 (08:16→20:42)
[2019-06-05] MEDS: RIVAROXABAN 15 MG TAB PO SCH (08:16)
[2019-06-05] MEDS: ALLOPURINOL 100 MG TAB PO SCH (08:16)
[2019-06-05] MEDS: DOCUSATE SODIUM 100 MG CAP PO SCH ×2 (08:23→20:40)
[2019-06-05] MEDS: POTASSIUM CHLORIDE 20 MEQ TABCR PO SCH ×2 (08:39→10:48)
[2019-06-05] MEDS ORDERED: MICONAZOLE NITRATE POWDER 43 GM EXT PRN (09:06)
[2019-06-05 09:17] LABS: Fibrinogen 619 mg/dl (184-400)
--- NOTE | 2019-06-05 10:00 | Pharmacy Report ---
Pharmacy Abx Dose Short Note - Date of Service June 05, 2019 - Assessment & Plan Assessment 88 year old F receiving IV Vancomycin and Zosyn for treatment of B/L LE cellulitis and UTI Day # 3 of antimicrobial therapy Urine culture resulted growing ESBL E.coli (sensitive only to carbapenems, nitrofurantoin and zosyn) Blood cultures show probable P. aeruginosa growing in 1/4 bottles only Plan Vancomycin * Trough level of 17.9 mcg/mL is therapeutic * Change to 1750 mg IV every 18 hours given patient's elevated BMI and therapeutic trough prior to steady state * Goal trough level for cellulitis: 15 to 20 mcg/mL * Trough level ordered for: 06/07/19 at 1130 (prior to 3rd dose due to probability of patient accumulating drug in tissue) Piperacillin/tazobactam * 4.5 g bolus administered over 30 minutes, then 4.5 g IV extended infusion every 8 hours for CrCl greater than 20 mL/min * Aggressive dosing selected due to BMI 35 or more Pharmacy will continue to follow and will adjust dose/frequency as necessary. Thank you.
[2019-06-05] MEDS: FEXOFENADINE HCL 180 MG TAB PO SCH (10:47)
[2019-06-05] MEDS: FLUTICASONE PROPIONATE NA SPR 16 GM BTL SCH ×2 (10:47→20:40)
[2019-06-05] MEDS: DULOXETINE HCL 30 MG CAP PO SCH (20:40)
[2019-06-05] MEDS: GABAPENTIN 600 MG TAB PO SCH (20:42)
[2019-06-05] MEDS: MONTELUKAST SODIUM 10 MG TABLET PO SCH (20:42)
--- NOTE | 2019-06-05 23:04 | Infectious Disease Progress Nt ---
Date of Service June 05, 2019 Assessment & Plan (1) Sepsis associated hypotension: Patient with sepsis likely from right lower extremity cellulitis, tract infection as well with blood growing what appears to be pseudomonal species. For now, Zosyn will provide appropriate coverage, will adjust once further culture results are available. Will follow. (2) Cellulitis of both lower extremities: (3) UTI (urinary tract infection): Subjective Patient seen in follow-up for sepsis, cellulitis, possible urinary tract infection. Feeling better today, less short of breath. Remains afebrile. Blood cultures reported positive for Pseudomonas species. Review of Systems Review of Systems: All systems reviewed & are unremarkable except as noted in HPI & below Physical Exam Constitutional: WD/WN, vitals as above comfortable; no acute distress Eyes: PERRL, conjunctivae normal, anicteric sclerae ENMT: external ear and nose normal, oropharynx normal Neck: trachea midline, no thyromegaly neck nontender Respiratory: normal respiratory effort, lungs clear to auscultation normal percussion; does not use accessory muscles Cardiovascular: Rate/Rhythm: regular rate and regular rhythm Heart Sounds: normal S1 and normal S2; no gallop, no murmur and no cardiac rub Vessels: normal peripheral pulses; no JVD Gastrointestinal (Abdomen): normal bowel sounds, soft, nontender, no hepat osplenomegaly Musculoskeletal: no cyanosis or clubbing, extremities motor strength 5/5 Spine: thoracic spine normal to inspection and lumbar spine normal to inspection; no cervical spinal tenderness Skin: normal turgor and + erythema (Right lower extremity to above the knee) Neurologic: patellar DTR's 2+ bilat, sensation intact no focal motor deficits Psychiatric: A+Ox3, euthymic affect Orientation: cooperative Lymphatic: no cervical or axillary lymphadenopathy no inguinal lymphadenopathy Results & Data Vital Signs (Past 12 Hours) Vital Signs Temp Pulse Resp BP Pulse Ox 06/05/19 20:05 36.5 C 107 H 20 132/70 96 06/05/19 19:35 107 H 20 94 06/05/19 16:17 36.6 C 78 18 127/74 98 06/05/19 15:19 74 20 93 06/05/19 12:29 36.6 C 73 20 112/58 L 96 06/05/19 11:23 67 Laboratory Results Short CBC 06/05/19 Range/Units 05:33 WBC 19.10 H D (4.8-10.8) K/uL Hgb 8.7 L (12.0-16.0) g/dL Hct 26.6 L (37-47) % Plt Count 42 L (130-400) K/uL BMP 06/05/19 06/05/19 05:33 05:39 Sodium 139 Potassium 3.8 Chloride 104 Carbon Dioxide 30 BUN 31 H Creatinine 1.24 H 1.18 Glucose 101 H Calcium 8.8 Liver Function 06/05/19 Range/Units 05:33 Total Bilirubin 0.4 (0.2-1) mg/dl AST 23 (15-37) U/L ALT 33 (12-78) U/L Alkaline Phosphatase 121 H (45-117) U/L Albumin 2.6 L (3.4-5.0) gm/dl Diagnostic Findings Microbiology 06/03/19 19:40 Blood Aerobic Blood Culture - Preliminary No growth in Aerobic bottle after 48 hours. 06/03/19 19:40 Blood Anaerobic Blood Culture - Preliminary No growth in Anaerobic bottle after 48 hours. 06/03/19 19:17 Blood Aerobic Blood Culture - Preliminary Probable Pseudomonas species 06/03/19 19:17 Blood Anaerobic Blood Culture - Preliminary No growth in Anaerobic bottle after 48 hours. 06/03/19 18:05 Urine,Straight Cath Urine Culture - Final Escherichia coli ESBL
[2019-06-06] MEDS ORDERED: VANCOMYCIN HCL 1,750 MG in SODIUM CHLORIDE 0.9% 500 ML IV SCH
[2019-06-06] MEDS: CHECK FENTANYL SCH ×4 (00:04→08:32)
[2019-06-06] MEDS: PIPERACILLIN/TAZOBACTAM 4.5 GM in DEXTROSE 5% 100 ML IV SCH ×2 (02:33→10:18)
[2019-06-06] MEDS: GABAPENTIN 100 MG CAP PO SCH ×2 (06:10→14:29)
[2019-06-06 06:36] LABS: Hematocrit (blood only) 26.1 % (37-47); Hemoglobin 8.5 g/dL (12.0-16.0); Mean Corpuscular Hgb Conc 32.6 g/dL (32-36); Mean Corpuscular Volume 108.8 fL (80-100); Mean Platelet Volume 12.8 fL (7.4-10.4); Platelet Count 64 K/uL (130-400); RDW Coefficient of Variation 16.3 % (11.5-14.5); RDW Standard Deviation 64.4 fL (36.4-46.3); White Blood Count 9.37 K/uL (4.8-10.8)
[2019-06-06 06:57] LABS: Basophils # (auto) 0.02 K/uL (0-0.2); Basophils % (auto) 0.2 %; Eosinophils % (auto) 2.1 %; Immature Granulocytes # (auto) 0.45 K/uL (0.00-0.02); Immature Granulocytes % (auto) 4.8 %; Lymphocytes # (auto) 1.61 K/uL (1.2-3.4); Lymphocytes % (auto) 17.2 %; Neutrophils # (auto) 5.59 K/uL (1.4-6.5); Neutrophils % (auto) 59.7 %
[2019-06-06] MEDS: ALBUT/IPRATROP 3MG/0.5MG NEB 3 ML VIAL NEB SCH ×4 (07:01→15:34)
[2019-06-06] MEDS: BUDESONIDE 0.5 MG/2 ML VIAL (PULMICORT) NEB SCH (07:01)
[2019-06-06 07:06] LABS: Calcium 8.7 mg/dl (8.5-10.1); Creatinine Clr Calc Pharmacy 59.2 ml/min; Potassium 4.3 mmol/L (3.5-5.1)
[2019-06-06] MEDS: ALLOPURINOL 100 MG TAB PO SCH (08:33)
[2019-06-06] MEDS: FEXOFENADINE HCL 180 MG TAB PO SCH (08:33)
[2019-06-06] MEDS: RIVAROXABAN 15 MG TAB PO SCH (08:34)
[2019-06-06] MEDS: FLUTICASONE PROPIONATE NA SPR 16 GM BTL SCH (08:35)
[2019-06-06] MEDS: ROPINIROLE HCL 1 MG TABLET PO SCH ×2 (08:35→14:08)
[2019-06-06] MEDS: POLYETHYLENE (MIRALAX) 17 GM PACK PO SCH ×2 (08:44)
[2019-06-06] MEDS: DOCUSATE SODIUM 100 MG CAP PO SCH (08:44)
--- NOTE | 2019-06-06 08:56 | Family Medicine Progress Note ---
Date of Service June 06, 2019 Assessment & Plan (1) UTI (urinary tract infection): #Sepsis associated hypotension: Multifactorial: Urinary tract infection, COPD exacerbation, cellulitis of bilateral lower extremities. -For now broad-spectrum antibiotics with vancomycin and Zosyn narrow pending cultures and clinical improvement -MRSA Positive -Ucx grew ESBL Ecoli sensitive to amikacin, cefoxitin, ertapenem, gentamicin, imipenem, nitrofurantoin, Pipracil and tazobactam, tobramycin -Blood culture grew pansensitive Pseudomonas -Request infectious diseases input on transition to p.o. antibiotics given that she is positive for both ESBL E. coli and Pseudomonas -Hypotensive on admission-> afberile & normotensive since -She is currently status post 2 L sodium chloride -If she becomes hypotensive we will resuscitate with LR #UTI (urinary tract infection): Urinalysis on admission, patient denies symptoms of urinary tract infection. Urine cultures obtained. -Ucx ESBL Ecoli - Sensitive to amikacin, cefoxitin, ertapenem, gentamicin, imipenem, nitrofurantoin, Pipracil and tazobactam, tobramycin - Continue Zosyn for now - On D/c will have to cover for uti and mrsa (considering concern for staph skin infection in mrsa positive pt) -Smyth catheter DC'd #Gram-negative bacteremia Cultures growing Santillan Sensitive Pseudomonas -Continue Zosyn for now, we will narrow pending ID recommendation # COPD exacerbation: Patient has a history of COPD on 4 L of O2 at home -Nasal cannula oxygen, titrate to keep pulse ox 92 to 94%. -Currently on 4 L -Duonebs every 4 hours while awake and every 2 hours when necessary. -Start Budesonide 0.5 mg twice daily -Guaifenesin extended release 600 mg p.o. twice daily. -Concern for pulmonary edema, given 1 dose of 1 mg Bumex IV push #Cellulitis of both lower extremities: -abx as above -Wound care managing #MRSA (methicillin resistant staph aureus) culture positive: #Chronic respiratory failure: Acute on chronic respiratory failure with hypoxia on 4 L home O2 -Primarily associated COPD exacerbation at this time. -COPD exacerbation #Chronic diastolic CHF (congestive heart failure): Chronic diastolic CHF/hypertension/CKD stage III- -restarted furosemide 20 mg p.o. daily and losartan 50 mix p.o. daily due to borderline blood pressure #CKD (chronic kidney disease), stage III: See above #Hypertension: Resumed antihypertensives #Pulmonary embolism: Continue Xarelto 15 mg p.o. daily FENa: Heart healthy Code Status: DNI, living will, Yas today will bring today and leave a nursing DVT PPX: Xarelto Dispo: med/surg Supervising Physician Co-Signing Physician Notes I personally examined the patient and verified all rene points of history and exam, discussed case, and agree with decision making with Dr Swift. Subjective Patient sitting up in bed this morning in no acute distress. Patient reports no significant interval history overnight, mild improvement in her breathing, weakness, and back pain although this is chronic in nature and has not changed. Patient was evaluated by PT and OT for escalation of care to SNF, they feel this is appropriate. Patient's blood culture resulted showing pansensitive Pseudomonas. Otherwise patient is tolerating her diet, voiding, stooling, sleeping, no acute distress, all questions answered, no acute concerns. Physical Exam Physical Exam: General: Obese female laying in bed, in no acute distress with IJ in place HEENT: Normocephalic atraumatic Neck: Trachea midline Cardiac: Regular rate and rhythm, I did not appreciate any murmurs rubs or gallops, normal S1 normal S2, 2+ bilateral pedal edema, Respiratory: Coarse breath sounds bilaterally, negative rales, positive rhonchi, positive wheezing. GI: Normal bowel sounds, soft, nontender, nondistended MSK: Moves extremities Skin: Bilateral erythematous lower extremities, concerning for cellulitis Neuro: Alert and oriented Psych: Cooperative, a bit cantankerous Results & Data Vital Signs (Past 12 Hours) Vital Signs Temp Pulse Pulse Resp BP Pulse Ox 06/06/19 08:11 36.7 C 74 18 108/63 98 06/06/19 07:01 74 20 98 06/06/19 04:00 37.2 C 79 20 126/80 96 06/06/19 03:04 73 06/06/19 00:00 37.1 C 81 20 120/74 95 Laboratory Results 06/06/19 06/06/19 Range/Units 06:16 06:16 WBC 9.37 (4.8-10.8) K/uL RBC 2.40 L (4.2-5.4) M/uL Hgb 8.5 L (12.0-16.0) g/dL Hct 26.1 L (37-47) % MCV 108.8 H (80-100) fL MCH 35.4 H (25-34) pg MCHC 32.6 (32-36) g/dL RDW Std Deviation 64.4 H (36.4-46.3) fL RDW Coeff of Marta 16.3 H (11.5-14.5) % Plt Count 64 L D (130-400) K/uL MPV 12.8 H (7.4-10.4) fL Immature Gran % (Auto) 4.8 % Neut % (Auto) 59.7 % Lymph % (Auto) 17.2 % Lamar % (Auto) 16.0 % Eos % (Auto) 2.1 % Baso % (Auto) 0.2 % Immature Gran # (Auto) 0.45 H (0.00-0.02) K/uL Neut # (Auto) 5.59 (1.4-6.5) K/uL Lymph # (Auto) 1.61 (1.2-3.4) K/uL Lamar # (Auto) 1.50 H (0.11-0.59) K/uL Eos # (Auto) 0.20 (0-0.5) K/uL Baso # (Auto) 0.02 (0-0.2) K/uL Sodium 140 (136-145) mmol/L Potassium 4.3 (3.5-5.1) mmol/L Chloride 107 (98-107) mmol/L Carbon Dioxide 31 (21-32) mmol/L Anion Gap 2.0 L (3-11) BUN 25 H (7-18) mg/dl Creatinine 1.01 (0.6-1.2) mg/dl Est Cr Clr Drug Dosing 59.2 ml/min Est GFR ( Amer) 58.0 Est GFR (Non-Af Amer) 50.0 BUN/Creatinine Ratio 25.0 H (10-20) Glucose 111 H (70-99) mg/dl Calcium 8.7 (8.5-10.1) mg/dl Medications Administered Current Inpatient Medications Acetaminophen (Tylenol) 650 mg PO Q4H PRN PRN Reason: Pain or Fever Stop: 07/03/19 22:46 Last Admin: 06/04/19 06:19 Dose: 650 mg Documented by: Al Hydrox/Mg Hydrox/Simethicone (Maalox) 15 ml PO Q4H PRN PRN Reason: Dyspepsia Stop: 07/03/19 22:46 Albuterol (Duoneb) 3 ml NEB QIDR [facility] Stop: 07/04/19 07:59 Last Admin: 06/06/19 11:06 Dose: 3 ml Documented by: Allopurinol (Zyloprim) 100 mg PO DAILY [facility] Stop: 07/04/19 08:59 Last Admin: 06/06/19 08:33 Dose: 100 mg Documented by: Budesonide (Pulmicort Respules) 0.5 mg NEB BIDR [facility] Stop: 07/04/19 19:59 Last Admin: 06/06/19 07:01 Dose: 0.5 mg Documented by: Docusate Sodium (Colace) 100 mg PO BID [facility] Stop: 07/04/19 08:59 Last Admin: 06/06/19 08:44 Dose: 100 mg Documented by: Duloxetine HCl (Cymbalta) 30 mg PO [facility] Stop: 07/04/19 20:59 Last Admin: 06/05/19 20:40 Dose: 30 mg Documented by: Fentanyl (Duragesic) 25 mcg TD Q72H [facility] Stop: 06/18/19 07:59 Last Admin: 06/04/19 08:29 Dose: 25 mcg Documented by: Fentanyl (Duragesic) 12 mcg TD Q72H [facility] Stop: 06/18/19 07:59 Last Admin: 06/04/19 08:30 Dose: 12 mcg Documented by: Fexofenadine HCl (Mildred) 180 mg PO QAM [facility] Stop: 07/05/19 09:59 Last Admin: 06/06/19 08:33 Dose: 180 mg Documented by: Fluticasone Propionate (Flonase) 2 sprays NA BID [facility] Stop: 07/05/19 09:59 Last Admin: 06/06/19 08:35 Dose: 2 sprays Documented by: Gabapentin (Neurontin) 200 mg PO [id number] [facility] Stop: 07/04/19 06:59 Last Admin: 06/06/19 06:10 Dose: 200 mg Documented by: Gabapentin (Neurontin) 600 mg PO HS [facility] Stop: 07/04/19 20:59 Last Admin: 06/05/19 20:42 Dose: 600 mg Documented by: Piperacillin Sod/Tazobactam (Sod 4.5 gm/ Dextrose) 120 mls @ 30 mls/hr IV Q8H [facility]; Protocol Stop: 06/14/19 01:59 Last Admin: 06/06/19 10:18 Dose: 30 mls/hr Documented by: Vancomycin HCl 1,750 mg/ (Sodium Chloride) 535 mls @ 200 mls/hr IV Q18H [facility]; Protocol Stop: 06/13/19 23:59 Last Infusion: 06/06/19 02:54 Dose: Infused Documented by: Magnesium Hydroxide (Milk Of Magnesia) 30 ml PO Q12H PRN PRN Reason: Constipation Stop: 07/03/19 22:46 Miconazole Nitrate (Desenex) 1 appln EXT PRN PRN PRN Reason: Affected Skin Folds Stop: 07/05/19 09:05 Last Admin: 06/06/19 00:04 Dose: 1 appln Documented by: Miscellaneous (Fentanyl Patch Remove & Waste) 1 ea N/A Q72H [facility] Stop: 07/04/19 07:58 Last Admin: 06/04/19 08:33 Dose: 1 ea Documented by: Miscellaneous (Fentanyl Patch Check Placement) 1 ea N/A QS [facility] Stop: 07/04/19 15:59 Last Admin: 06/06/19 08:32 Dose: 1 ea Documented by: Miscellaneous (Fentanyl Patch Remove & Waste) 1 ea N/A Q72H [facility] Stop: 07/04/19 07:58 Last Admin: 06/04/19 08:32 Dose: 1 ea Documented by: Miscellaneous (Fentanyl Patch Check Placement) 1 ea N/A QS [facility] Stop: 07/04/19 15:59 Last Admin: 06/06/19 08:32 Dose: 1 ea Documented by: Miscellaneous Information (Consult) 1 ea N/A UD PRN PRN Reason: Consult Stop: 07/03/19 22:46 Miscellaneous Information (Consult) 1 ea N/A UD PRN PRN Reason: Consult Stop: 07/03/19 22:46 Montelukast Sodium (Singulair) 10 mg PO PM [facility] Stop: 07/04/19 20:59 Last Admin: 06/05/19 20:42 Dose: 10 mg Documented by: Ondansetron HCl (Zofran) 4 mg IV Q6H PRN PRN Reason: Nausea Stop: 07/03/19 22:46 Polyethylene Glycol (Miralax Powder Packet) 17 gm PO BID [facility] Stop: 07/03/19 22:46 Last Admin: 06/06/19 08:44 Dose: Not Given Documented by: Polyethylene Glycol (Miralax Powder Packet) 17 gm PO DAILY [facility] Stop: 07/04/19 10:59 Last Admin: 06/06/19 08:44 Dose: 17 gm Documented by: Rivaroxaban (Xarelto) 15 mg PO DAILY [facility] Stop: 07/04/19 08:59 Last Admin: 06/06/19 08:34 Dose: 15 mg Documented by: Ropinirole HCl (Requip) 1 mg PO TID [facility] Stop: 07/04/19 08:59 Last Admin: 06/06/19 08:35 Dose: 1 mg Documented by: PG Care Time/CCT Total # of Minutes Spent Total Time Spent with Patient: Total time spent is greater than 50% in coordination of care (as documented) at patient's floor/unit and/or counseling patient: Resident Activity Tracking Resident Involvement: Resident Care Provided Care Provided: Adult Hospital Medicine
[2019-06-06] MEDS ORDERED: BUMETANIDE 1 MG in SYRINGE 0 ML IV ONE (13:00)
--- NOTE | 2019-06-06 13:43 | Discharge Summary ---
Date of Service June 06, 2019 Admission HPI Per Admitting Provider The patient is a 88-year-old female resident of [facility], who was brought to the emergency department after reporting fevers and chills that began 6 hours prior to arrival. She reports that she began to have difficulty breathing the previous evening, but denies any cough. She reports that she urinates frequently at her baseline, and does not complain of any more discomfort than usual. She appears fatigued and dyspneic as she is answering. She does have dressings on bilateral lower extremities. Admission Exam Per Admitting Provider The patient is awake, somewhat lethargic, appears fatigued and dyspneic, lying in bed and in mild distress. HEENT--PERRL, EOMI, mucous membranes and oropharynx very dry. Neck--supple. No JVD. No bruits. Thyroid normal, trachea midline, no adenopathy. Heart--normal S1 and S2. No murmurs, rubs or gallops. Lungs--few coarse breath sounds bilaterally, overall diminished. Abdomen--normal bowel sounds and soft. Nontender. Nondistended. Extremities--no cyanosis or clubbing. No edema. There are good distal pulses b/l. Dermatologic--bilateral lower extremities with erythema, eczematous rash with dressings over top. Neurologic--cranial nerves II through XII grossly intact. Rheumatologic--normal range of motion. Psychiatric--mildly lethargic. Principal Diagnosis UTI multidrug-resistant strain, Pseudomonas bacteremia, COPD exacerbation, CHF, Sepesis Discharge Exam General: Obese female laying in bed, in no acute distress with IJ in place HEENT: Normocephalic atraumatic Neck: Trachea midline Cardiac: Regular rate and rhythm, I did not appreciate any murmurs rubs or gallops, normal S1 normal S2, 2+ bilateral pedal edema, Respiratory: Coarse breath sounds bilaterally, negative rales, positive rhonchi, positive wheezing. GI: Normal bowel sounds, soft, nontender, nondistended MSK: Moves extremities Skin: Bilateral erythematous lower extremities, concerning for cellulitis Neuro: Alert and oriented Psych: Cooperative, a bit cantankerous Discharge Data Allergies Allergy/AdvReac Type Severity Reaction Status Date / Time enoxaparin Allergy Intermediate RASH, Verified 06/03/19 21:32 PRURITUS Consultations 06/03/19 20:36 ED Decision to Admit Stat 06/03/19 22:47 Consult Case Management - Discharge Planning Routine 06/04/19 03:58 Consult Infectious Diseases Routine Hospital Course (1) UTI (urinary tract infection): #Sepsis associated hypotension: Patient presented with abel sepsis with associated hypotension. Source of infection was multifactorial, urinary tract infection, COPD exacerbation, cellulitis the bilateral lower extremities. In the ED patient was fluid resuscitated with 2 L of normal saline and had adequate blood pressure response. Patient was started on empiric vancomycin and Zosyn. MRSA swab, urine cultures and blood cultures were obtained. She is MRSA positive, urine cultures grew out ESBL E. coli, blood cultures grew out Pseudomonas. Patient was discharged on 14-day course of IV Zosyn and oral doxycycline to be completed at [facility]. #UTI (urinary tract infection): Urinalysis on admission, patient denies symptoms of urinary tract infection. Urine cultures obtained positive for ESBL Ecoli sensitive to amikacin, cefox itin, ertapenem, gentamicin, imipenem, nitrofurantoin, Pipracil and tazobactam, tobramycin. See sepsis #Pseudomonal bacteremia Cultures growing [place] Sensitive Pseudomonas, see sepsis #Cellulitis of both lower extremities: See sepsis, wound care managed while hospitalized, will defer to outpatient wound care for further management. # COPD exacerbation: Patient has a history of COPD on 4 L of O2 at home. Patient was maintained on 4 L of oxygen with pulse ox goal of 92 to 94%. She was provided duo nebs every 4 hours while awake and budesonide twice daily. She was continued on guaifenesin extended release 60 mg p.o. twice daily. Her furosemide was held while she was in the hospital and restarted on discharge. #MRSA (methicillin resistant staph aureus) culture positive: #Chronic respiratory failure: Acute on chronic respiratory failure with hypoxia on 4 L home O2 -Primarily associated COPD exacerbation at this time. -COPD exacerbation #Chronic diastolic CHF (congestive heart failure): Chronic diastolic CHF/hypertension/CKD stage III- -restarted furosemide 20 mg p.o. daily and losartan 50 mix p.o. daily on discharge #CKD (chronic kidney disease), stage III: See above #Hypertension: Resumed antihypertensives #Pulmonary embolism: Continue Xarelto 15 mg p.o. daily FENa: Heart healthy Code Status: DNI, living will, Yas today will bring today and leave a nursing DVT PPX: [place] Dispo: [facility] Total Time Total Time Spent Total Time Spent (In Minutes): <30 Discharge Plan Discharge Items Patient Disposition: Transfer [facility] Fac Reason For Visit: UTI,B/L LE CELLULITIS,HYPOXIA Discharge Diagnosis: UTI multidrug-resistant strain, Pseudomonas bacteremia, COPD exacerbation, CHF, Sepesis Discharge Goals: Diagnostic testing and Therapeutic intervention Activity: Resume your previous activity Activity Comment: as tolerated Non-emergency contact: Primary Care Provider Call non-emergency contact if: you have any medication questions, your symptoms worsen and your temperature is above 100.5 Follow-up/Referrals: [facility] [Primary Care Provider] - Diet: Carb Consistent or DM2 and Heart Healthy Addtl Provider Instructions: Care instructions: You were admitted to [facility] for treatment of UTI multidrug-resistant strain, Pseudomonas bacteremia, COPD exacerbation, CHF, Sepesis. A discharge summary will be sent to your primary care physician to ensure continuity of care. Please bring this discharge summary with you to your next office appointment so that your provider can review it at that time. #Sepsis associated hypotension: Patient presented with aebl sepsis with associated hypotension. Source of infection was multifactorial, urinary tract infection, COPD exacerbation, cellulitis the bilateral lower extremities. In the ED patient was fluid resuscitated with 2 L of normal saline and had adequate blood pressure response. Patient was started on empiric vancomycin and Zosyn. MRSA swab, urine cultures and blood cultures were obtained. She is MRSA positive, urine cultures grew out ESBL E. coli, blood cultures grew out Pseudomonas. Patient was discharged to complete a 14-day course of IV Zosyn day 3/14 (please continue for 11 more days) and oral doxycycline to be completed at [facility]. #UTI (urinary tract infection): Urinalysis on admission, patient denies symptoms of urinary tract infection. Urine cultures obtained positive for ESBL Ecoli sensitive to amikacin, cefoxitin, ertapenem, gentamicin, imipenem, nitrofurantoin, Pipracil and tazobactam, tobramycin. See sepsis #Pseudomonal bacteremia Cultures growing [place] Sensitive Pseudomonas, see sepsis #Cellulitis of both lower extremities: See sepsis, wound care managed while hospitalized, will defer to outpatient wound care for further management. # COPD exacerbation: Patient has a history of COPD on 4 L of O2 at home. Patient was maintained on 4 L of oxygen with pulse ox goal of 92 to 94%. She was provided duo nebs every 4 hours while awake and budesonide twice daily. She was continued on guaifenesin extended release 60 mg p.o. twice daily. Her furosemide was held while she was in the hospital and restarted on discharge.Continue budesonide as an outpt #MRSA (methicillin resistant staph aureus) culture positive: #Chronic respiratory failure: Acute on chronic respiratory failure with hypoxia on 4 L home O2 -Primarily associated COPD exacerbation at this time. -COPD exacerbation #Chronic diastolic CHF (congestive heart failure): Chronic diastolic CHF/hypertension/CKD stage III- -restarted furosemide 20 mg p.o. daily and losartan 50 mix p.o. daily on discharge #CKD (chronic kidney disease), stage III: See above #Hypertension: Resumed antihypertensives #Pulmonary embolism: Continue Xarelto 15 mg p.o. daily FENa: Heart healthy Code Status: DNI, living will, Yas today will bring today and leave a nursing DVT PPX: Xarelto Dispo: [facility] Follow-up appointments: - Keep all your follow-up appointments as already scheduled. If you cannot make an appointment, notify your provider. - Please call to request a follow-up appointment with your primary care physician within one week of discharge. Please let us know if you are unable to obtain an appointment Medications: - Your medication list has been reviewed and reconciled upon discharge to ensure accuracy and continuity of care. - You are provided with a list of all your current medications at this time. Please review this list closely and make note of any changes. - Please take all of your medications exactly as prescribed. - Tell your primary care provider if you cannot afford your medications. - Call your primary care provider if you are having any side effects or any other problems. - Call your primary care provider before taking any over the counter medications or supplements, including herbals and vitamins, because some of these may interact with your current medications and/or make your symptoms worse. Symptoms: Please call your primary care provider for symptoms including, but not limited to: fevers (temperatures greater than 100.4), chills, intractable nausea or vomiting, diarrhea, rash, shortness of breath, bleeding, pain, or if you experience any worsening of the symptoms that brought you to the hospital. For EMERGENCY and VERY SERIOUS health-related issues, such as chest pain, shortness of breath, or sudden onset of the symptoms that brought you to the hospital, you may need to call 911 or go directly to the Emergency Room It has been our privilege to take care of you during your hospital stay. And Above All Else Feel Better! Best Wishes, Heriberto Swift MD PGY1 Resident, Family & Community Medicine [facility] Residency at [facility] - [address], [address] : [address] [place] [address] Prescriptions: New budesonide 0.5 mg/2 mL Suspension For Nebulization 0.5 mg NEB BIDR Qty: 120 RF: 0 doxycycline hyclate 100 mg capsule 100 mg PO BID 11 Days Qty: 22 RF: 0 Zosyn in dextrose (iso-osm) 4.5 gram/100 mL piggyback 4.5 gm IV Q8H 11 Days Qty: 3300 RF: 0 Continued multivitamin Tablet 1 tab PO DAILY RF: 0 azelastine 137 mcg (0.1 %) Aerosol,[place] 2 spray INTRANASAL DAILY RF: 0 albuterol sulfate [Ventolin HFA] 90 mcg/actuation Hfa Aerosol Inhaler 2 puff INHALATION Q4H PRN (Reason: .COPD) RF: 0 fluticasone propionate [Flonase Allergy Relief] 50 mcg/actuation [place],Suspension 2 spray INTRANASAL DAILY RF: 0 acetaminophen 325 mg Capsule 325 mg PO Q6H MDD 3G PRN (Reason: Pain) RF: 0 Restasis MultiDose 0.05 % Drops 1 drp OPHTHALMIC (EYE) Q12H RF: 0 losartan 50 mg Tablet 50 mg PO DAILY RF: 0 gabapentin 600 mg Tablet 600 mg PO HS RF: 0 allopurinol 100 mg Tablet 100 mg PO DAILY RF: 0 fluticasone propion-salmeterol [Advair Diskus] 500-50 mcg/dose Blister With Device 1 inh INHALATION BID RF: 0 montelukast [Singulair] 10 mg Tablet 10 mg PO PM RF: 0 Prilosec OTC 20 mg Tablet,Delayed Release (Dr/Ec) 20 mg PO DAILY RF: 0 Spiriva with HandiHaler 18 mcg Capsule, W/Inhalation Device 1 cap INHALATION DAILY RF: 0 duloxetine 30 mg Capsule,Delayed Release(Dr/Ec) 30 mg PO HS RF: 0 albuterol sulfate 2.5 mg /3 mL (0.083 %) solution for nebulization 2.5 mg INH Q6H Qty: 90 RF: 0 docusate sodium 100 mg Capsule 100 mg PO BID RF: 0 Xarelto 15 mg Tablet 15 mg PO DAILY RF: 0 famotidine 20 mg Tablet 20 mg PO HS RF: 0 ropinirole [Requip] 0.5 mg Tablet 1 mg PO TID RF: 0 acetaminophen [Tylenol Extra Strength] 500 mg Tablet 1,000 mg PO HS RF: 0 ciprofloxacin HCl 0.3 % Drops 2 drp OPHTHALMIC (EYE) TID RF: 0 sodium chloride [[place] Nasal] 0.65 % Aerosol,[place] 1 spray INTRANASAL UD PRN (Reason: Dry Nasal Passages) RF: 0 diclofenac sodium [Voltaren] 1 % Gel 2 g TOPICAL BID RF: 0 miconazole nitrate [Lotrimin AF Powder] 2 % Aerosol Powder 1 spray TOPICAL BID PRN (Reason: Rash) RF: 0 gabapentin 100 mg Capsule 200 mg PO [id number] Qty: 120 RF: 0 polyethylene glycol 3350 [Miralax] 17 gram Powder In Packet 17 g PO BID Qty: 60 RF: 0 benzonatate [Tessalon Perles] 100 mg Capsule 100 mg PO TID Qty: 30 RF: 0 oxycodone 5 mg Tablet 5 mg PO Q4H PRN (Reason: pain) Qty: 12 RF: 0 fentanyl 37.5 mcg/hour Patch 72 Hour 1 patch TRANSDERMAL Q72H Qty: 1 RF: 0 furosemide [Lasix] 20 mg tablet 20 mg PO DAILY Qty: 30 RF: 0 Stand-Alone Forms: [facility] Discharge Orders: Discharge Order (Routine); Ordered 06/06/19 Ordered By: Heriberto Swift Skilled Items Patient informed of condition?: Yes DNR: Yes Discharge Level of Care: Skilled Communicable Disease: No Discharge Prognosis: Stable Admission Data Admit Date/Time: 06/03/19 21:28 Attending Provider: Ivan Marcus Admit Provider: Kevin Byrne Primary Care Provider: Madi Castellanos Other Providers: Kevin Byrne ; Richard Butt Service: Telemetry Medical Other Interventions: Discharge Summary Assessment (RN) Last Done: 06/06/19 15:59 DC Date/Time DO NOT enter until pt leaves facility: 06/06/19 17:32 Supervising Physician Co-Signing Physician Notes I personally examined the patient and verified all rene points of history and exam, discussed case, and agree with decision making with Dr Swift. Feeling good overall. Breathing well. No new complaints. Vitals noted, in general she is awake and alert pleasant but fatigued no distress. HEENT normocephalic atraumatic mucous membranes moist. Breathing unlabored no accessory muscle use good effort. Right lower extremity with resolving erythema, side generally clear and below the knee is now wrapped. Sepsisseems most likely related to cellulitis. It is concerning that she is growing ESBL in her urine and Pseudomonas in her blood, and she easily could have had infections in multiple places. The Pseudomonas given that it is different than the bacteria in her urine, may be from venous stasis ulcers in her legs fitting with the cellulitis, or may be lung pathology. Given all of this, and her improvement on Zosyn, as well as needing to have an antipseudomonal antibiotic for the bacteremia and something that would cover the ESBL, and discussion with infectious disease we will need to finish out a course of Zosyn. We will also utilize doxycycline as the cellulitis could have been Pseudomonas related to her venous stasis ulcers, but also quite commonly would of course be a resistant gram-positive. Stable for return to SNF for ongoing care Resident Activity Tracking Resident Involvement: Resident Care Provided Care Provided: Adult Hospital Medicine
[2019-06-07 07:51] LABS: Hypogranular Neutrophils 2+
[2019-06-07] MEDS ORDERED: FUROSEMIDE 20 MG TAB PO SCH (09:00)
[2019-06-07] MEDS ORDERED: LOSARTAN POTASSIUM 50 MG TAB PO SCH (09:00)
[2019-06-07] MEDS ORDERED: VANCOMYCIN TROUGH ONE (11:30)
[2019-06-08] MEDS ORDERED: LOSARTAN POTASSIUM 50 MG TAB PO SCH (09:00)
== END 2019-06-06 17:32 | DRG 871 ==
LOC: ED 15:50 → 2S 21:28 → SUATTDRO 21:28 → 2S 21:55 → 2N 06-04 12:43

== ENCOUNTER 2019-07-14 11:20 | Inpatient (IN) ==
[2019-07-14] MEDS ORDERED: ALBUT/IPRATROP 3MG/0.5MG NEB 3 ML VIAL NEB ONE (11:49)
[2019-07-14 12:24] LABS: Hematocrit (blood only) 30.5 % (37-47); Mean Corpuscular Hgb Conc 32.8 g/dL (32-36); Mean Corpuscular Volume 107.4 fL (80-100); RDW Coefficient of Variation 17.4 % (11.5-14.5); RDW Standard Deviation 68.5 fL (36.4-46.3); Red Blood Count 2.84 M/uL (4.2-5.4)
[2019-07-14] MEDS ORDERED: SODIUM CHLORIDE 0.9% 1000ML 500 ML IV ONE (12:30)
[2019-07-14] MEDS ORDERED: PIPERACILL/TAZOBAC CONSULT ACTIVE PRN ×2 (12:30→15:56)
[2019-07-14] MEDS ORDERED: LEVOFLOXACIN/D5W 750 MG/150 ML BAG IV STA (12:30)
[2019-07-14] MEDS ORDERED: VANCOMYCIN HCL 2,750 MG in SODIUM CHLORIDE 0.9% 500 ML IV ONE ×2 (12:30→22:00)
[2019-07-14] MEDS ORDERED: PIPERACILLIN/TAZOBACTAM 4.5 GM/120 ML BAG IV ONE (12:30)
[2019-07-14] MEDS ORDERED: VANCOMYCIN CONSULT ACTIVE PRN ×2 (12:30→19:26)
[2019-07-14 12:32] LABS: INR 1.1 (0.9-1.1); Partial Thromboplastin Ratio 0.9; Partial Thromboplastin Time 25.1 Seconds (21.0-31.0); Prothrombin Time 11.6 Seconds (9.0-12.0)
[2019-07-14 12:35] LABS: iSTAT Creatinine 1.6 mg/dl (0.6-1.3); iSTAT Hemoglobin 10.9 g/dl (12.0-16.0); iSTAT Ionized Calcium 1.2 mmol/l (1.12-1.32)
[2019-07-14 12:44] LABS: Mean Platelet Volume 12.2 fL (7.4-10.4); Platelet Count 257 K/uL (130-400)
[2019-07-14] MEDS ORDERED: ACETAMINOPHEN SOLN 500 MG/15.62 ML UDP PO STA (12:48)
[2019-07-14 12:51] LABS: Basophils # (auto) 0.09 K/uL (0-0.2); Basophils % (auto) 0.1 %; Eosinophils # (auto) 0.01 K/uL (0-0.5); Immature Granulocytes # (auto) 3.84 K/uL (0.00-0.02); Immature Granulocytes % (auto) 4.8 %; Lymphocytes # (auto) 2.58 K/uL (1.2-3.4); Lymphocytes % (auto) 3.2 %; Monocytes # (auto) 4.45 K/uL (0.11-0.59); Monocytes % (auto) 5.5 %; Neutrophils # (auto) 69.53 K/uL (1.4-6.5); Neutrophils % (auto) 86.4 %; Platelet Estimate Normal (Normal)
[2019-07-14 12:54] LABS: Albumin Globulin Ratio 0.8 (0.9-2); Albumin Level 2.6 gm/dl (3.4-5.0); BUN Creatinine Ratio 19.9 (10-20); Calcium 8.8 mg/dl (8.5-10.1); Creatinine Clr Calc Pharmacy 35.2 ml/min; Est GFR (African American) 32.7; Est GFR (Non-African American) 28.2; Globulin 3.1 gm/dl (2.5-4.0); Total Protein 5.7 gm/dl (6.4-8.2)
[2019-07-14] MEDS ORDERED: ACETAMINOPHEN 500 MG TAB ONE (13:00)
[2019-07-14 13:04] LABS: Appearance Urine Cloudy (Clear); Bacteria Urine Automated 3+ (Negative); Bilirubin Urine Negative (Negative); Blood Urine Trace (Negative); Color Urine Yellow; Epithelial Cell Urine Auto 0-5 /lpf (0-5); Glucose Urine UA Negative (Negative); Ketones Urine Negative (Negative); Leukocyte Esterase Urine 2+ (Negative); Nitrite Urine Positive (Negative); Protein Urine Negative (Negative); RBC Urine Automated 0-4 /hpf (0-4); Specific Gravity Urine 1.012 (1.000-1.030); Urobilinogen Urine Negative (Negative); WBC Urine Automated >30 /hpf (0-5)
--- NOTE | 2019-07-14 13:12 | XRay Report ---
XR chest 1V portable HISTORY: Sepsis COMPARISON: Chest 06/03/2019. FINDINGS: There are low lung volumes. The heart remains mildly enlarged. Diffuse interstitial thicken ing persists. No pneumothorax. Right basilar densities have progressed. Trace bilateral pleural effus ions. IMPRESSION: 1. Slight progression of a mild pulmonary edema with trace bilateral pleural effusions. 2. Right basilar airspace opacities have progressed. This could represent atelectasis or pneumonia. Electronically signed by: Darshan Yin M.D. 07/14/2019 1:11 PM
[2019-07-14 13:25] LABS: Creatine Kinase MB < 1.0 ng/ml (0.5-3.6); Troponin I < 0.015 ng/ml (0-0.045)
--- NOTE | 2019-07-14 14:59 | History & Physical Report ---
Date of Service July 14, 2019 Assessment & Plan (1) Acute on chronic respiratory failure: - Likely multifactorial between COPD exacerbation, Acute Diastolic CHF, Atelectasis vs PNA, not utilizing CPAP at night - Continue BiPAP at this time and continue to wean as tolerable to baseline O2 of 4 L; does utilize CPAP at night for CARLITOS which this can continue - Given rapid onset will check Influenza PCR and procalcitonin; repeat lactic - She is on Xarelto 15 mg daily which is a subtherapeutic dose which was likely dose for renal function but given body habitus the question of efficacy could be argued - will obtain D-Dimer and check U/S lower extremities; due to increased Cr in setting of CKD III will hold on CTA and given respiratory status a VQ scan would not be easily completed - if D-Dimer is elevated it may be best to convert to Heparin gtt until respiratory vs renal function improves to assess for PE - given low grade fever, leukocytosis, developing basilar opacity (infarct?) -- May need to consider Eliquis given its better studied renal dosing vs Coumadin - CXR reveals slight progression of pulmonary edema and has third spacing - Give Albumin 25% x 1 and Lasix 20 mg IV BID with BP hold parameters - Solu-Medrol 40 mg IV BID and Duonebs; Continue Pulmicort, Advair BID, Singulair 10 mg HS, and Spriva daily Present on Admission?: Yes (2) Leukocytosis: - Has a profound leukocytosis of 80 - she follows with Dr. Shah and was evaluated on Monday -- She does report mention of possible MDS and the possibility of leukemia - she reports the plan was to avoid invasive testing such as bone marrow biopsy - Given lactic acid, CXR findings, UA findings will R/O infectious etiology; further plan as above with UCx and BCx pending - Cover with Cefepime with renal dosing for Pseudomonas coverage and Linezolid BID Present on Admission?: Yes (3) Diastolic CHF: - Possibly Acute on Chronic; Is edematous of the legs into abdomen - possibly intravascularly dry given third spacing - Albumin/Lasix and monitor for improvement and further treatment pending response - Will obtain updated echocardiogram Present on Admission?: Yes (4) COPD (chronic obstructive pulmonary disease): - With mild acute exacerbation/multifactorial - treatment as above Present on Admission?: Yes (5) Hypertension: - Initially high BP 170/100 in ED but since around 90-105 systolic but mentating appropriately and denies dizziness - Will Hold Losartan at this time given slight Cr increase as well Present on Admission?: Yes (6) CKD (chronic kidney disease), stage III: - Cr increased to 1.62 and will monitor - possibly mild MICHI - possibly from volume overload Present on Admission?: Yes (7) History of pulmonary embolism: - H/O DVT/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 and on Xarelto 15 mg daily - given body habitus and reduced dosing there is question of efficacy for appropriate coverage - treatment as above History of Present Illness Chief Complaint: SOB Primary Care Provider: [facility] Ms. Mendez is an 88 y/o female with PMHx of Chronic Respiratory Failure on 4 L Baseline, COPD, Diastolic CHF, HTN, CKD III, Macrocytic Anemia, H/O DVT/PE, H/O Breast CA/Lung CA S/P RUL Wedge Resection who presents to the ED for acute onset of SOB. Patient reports she has been in her normal state of health up until this AM. She states she had a sudden onset of SOB and was given Rocephin 1 g and Budesonide/Duonebs prior to arrival in ED. She was found to be hypoxic on her normal 4 L and minimal improvement when moved to 6 L. She did improve with placement of BiPAP. Patient reports feeling some improvement with her breathing since starting BiPAP and can almost speak full sentences before needing to stop to breath. [place] reports a low grade fever last night around 99 F. She endorses a chronic cough and denies any changes with this. However, she does not e it feels like there is something "stuck" and she hasn't been able to cough it up. She also states she has noticed herself wheezing and feeling like her breathing is tight. She reports chronic redness/swelling of her b/l lower extremities which she reports are about baseline at this time. CXR reveals slight progression of pulmonary edema and slight increase in R basilar consolidation which could favor atelectasis vs pneumonia. She also reports she has not utilized her CPAP at night consistently over the past couple days. She does endorse a headache earlier this AM which has since subsided. Upon admission she was noted to have a WBC of 80. She was in to see Dr. Shah on Monday for macrocytic anemia and she thinks she was told she could have MDS vs Leukemia was mentioned previously but she wasn't sure on these details. She is also noted to be on only Xarelto 15 mg daily for H/O PE/DVT which suspect is for renal dosing but could place her at risk for PE/DVT. UA suggestive of UTI as well. UCx and BCx are pending. Allergies Allergy/AdvReac Type Severity Reaction Status Date / Time enoxaparin Allergy Intermediate RASH, Verified 07/14/19 12:13 PRURITUS Home Medications Home Medications Medication Instructions Recorded Confirmed Type Prilosec OTC 20 mg PO QAM 09/07/18 07/14/19 History Spiriva with HandiHaler 1 cap INHALATION QAM 09/07/18 07/14/19 History allopurinol 100 mg PO QAM 09/07/18 07/14/19 History duloxetine 30 mg PO HS 09/07/18 07/14/19 History fluticasone propion-salmeterol 1 inh INHALATION BID 09/07/18 07/14/19 History [Advair Diskus] gabapentin 600 mg PO HS 09/07/18 07/14/19 History losartan 50 mg PO QAM 09/07/18 07/14/19 History montelukast [Singulair] 10 mg PO PM 09/07/18 07/14/19 History albuterol sulfate 2.5 mg INH Q6H #90 ml 09/11/18 07/14/19 Rx Restasis MultiDose 1 drp OPHTHALMIC (EYE) BID 11/06/18 07/14/19 History acetaminophen 650 mg PO Q6H PRN MDD 3G 11/06/18 07/14/19 History albuterol sulfate [Ventolin HFA] 2 puff INHALATION Q4H PRN 11/06/18 07/14/19 History azelastine 2 spray INTRANASAL QAM 11/06/18 07/14/19 History fluticasone propionate [Flonase 2 spray INTRANASAL DAILY 11/06/18 07/14/19 History Allergy Relief] multivitamin 1 tab PO QAM 11/06/18 07/14/19 History Xarelto 15 mg PO PM 02/02/19 07/14/19 History acetaminophen [Tylenol Extra 1,000 mg PO HS 02/02/19 07/14/19 History Strength] diclofenac sodium [Voltaren] 2 g TOPICAL BID 02/02/19 07/14/19 History docusate sodium 100 mg PO BID 02/02/19 07/14/19 History ropinirole [Requip] 1 mg PO TID 02/02/19 07/14/19 History sodium chloride [[place] Nasal] 1 spray INTRANASAL UD PRN 02/02/19 07/14/19 History fentanyl 1 patch TRANSDERMAL Q72H #1 ea 02/08/19 07/14/19 Rx benzonatate [Tessalon Perles] 100 mg PO TID 07/14/19 07/14/19 History budesonide 0.5 mg NEB Q12H 07/14/19 07/14/19 History ceftriaxone 1 g IM Q24H 07/14/19 07/14/19 History furosemide [Lasix] 20 mg PO QAM 07/14/19 07/14/19 History gabapentin 200 mg PO BID 07/14/19 07/14/19 History levothyroxine 50 mcg PO QAM 07/14/19 07/14/19 History lidocaine HCl 2.1 ml IM Q24H 07/14/19 07/14/19 History oxycodone 5 mg PO QAM PRN 07/14/19 07/14/19 History oxycodone 10 mg PO HS PRN 07/14/19 07/14/19 History polyethylene glycol 3350 [Miralax] 17 g PO PM 07/14/19 07/14/19 History Past Med/Surg History Medical History Chronic back pain RLS (restless legs syndrome) Chronic diastolic CHF (congestive heart failure) (Chronic) COPD exacerbation (Acute) Hypoxia (Acute) Hypertension (Chronic) Asthma (Chronic) CKD (chronic kidney disease), stage III (Chronic) DCIS (ductal carcinoma in situ) (~2012) Deep vein blood clot of right lower extremity History of pulmonary embolism Lung cancer (~2010) Spasmodic dysphonia Surgical History H/O mastectomy History of back surgery Hx of appendectomy Hx of hernia repair Hx of hysterectomy Hx of resection of liver Hx of total knee replacement Family History Other Family history non-contributory Social History Preferred Language: Lebanese Communication Ability: Effective Video Specialist Required: No Beliefs That Will Affect Care: None Current Living Situation: Senior Living Other Information That Helps Us Care for You: No Feels Safe at Home: Yes Safety Concerns: Feels Safe At This Time Smoking Status: Never smoker Do You Dip or Chew Tobacco: No ; Second Hand Exposure: No ; Tobacco Cessation Education Requested by Patient: No Hx Alcohol Use: No Hx Substance Use: No Review of Systems Constitutional: + fever (low grade last night 99 F); no chills Eyes: no worsening vision Ear, Nose, Mouth, Throat: no nasal congestion, no sore throat and no dysphagia Respiratory: + cough (chronic - no change), + dyspnea and + wheezing; no sputum production Cardiovascular: + edema; no chest pain and no lightheadedness Gastrointestinal: + constipation; no abdominal pain, no nausea, no vomiting and no diarrhea/loose stools Genitourinary: no dysuria Integumentary: no rash chronic changes of b/l lower extremities - mildly erythematous but not warm to touch - reports they are baseline Physical Exam Constitutional: + acute distress, + ill appearing and + obese Eyes: + anicteric sclerae ENMT: Ears: no hearing impairment Neck: trachea midline Respiratory: + respiratory distress, + labored breathing, + cough, able to speak in complete sentences and + tachypneic Auscultation: + diminished lung sounds, + rales and + wheezes (sporadic) Cardiovascular: Rate/Rhythm: regular rate, regular rhythm and + tachycardic Gastrointestinal (Abdomen): Inspection/Auscultation: + abdomen distended and normal bowel sounds Percussion/Palpation: abdomen soft; abdomen nontender Skin: chronic venous changes of b/l lower extremities with diagonal demarcated lines of erythema Neurologic: moves all extremities Psychiatric: A+Ox3, euthymic affect Results & Data Vital Signs (Past 12 Hours) Vital Signs Temp Pulse Pulse Resp BP Pulse Ox 07/14/19 13:30 98 H 32 H 90/52 L 100 07/14/19 13:00 101 H 16 105/50 L 100 07/14/19 12:45 110 H 21 99/58 L 100 07/14/19 12:33 103 H 25 H 104/53 L 99 07/14/19 12:13 106 H 20 97 07/14/19 12:04 99 07/14/19 11:37 97 07/14/19 11:30 36.8 C 112 H 19 178/141 H 97 07/14/19 11:28 107 H 26 H 170/141 H 96 07/14/19 11:24 108 H 20 99 Supervising Physician Co-Signing Physician Notes The case discussed with Dr. Acosta field service technician poultry and agreed to transfer pt to the ICU due to hemodynamic instability and future needs of pressors. Agree with exam and assessment. PG Care Time/CCT Total # of Minutes Spent Total Time Spent with Patient: Total time spent is greater than 50% in coordination of care (as documented) at patient's floor/unit and/or counseling patient: (1) Hypertension Hypertension type: essential hypertension Qualified Code(s): I10 - Essential (primary) hypertension
[2019-07-14] MEDS ORDERED: CEFEPIME 2,000 MG in SYRINGE 7.5 ML IV STA (15:08)
[2019-07-14] MEDS ORDERED: FUROSEMIDE 40 MG/4 ML VIAL IV ONE (15:15)
[2019-07-14] MEDS ORDERED: ALBUMIN 25% 50 ML IV ONE (15:15)
[2019-07-14 15:33] LABS: Potassium 3.8 mmol/L (3.5-5.1)
[2019-07-14 15:56] LABS: Influenza A virus by PCR Neg for Influ A (Neg); Influenza B virus by PCR Neg for Influ B (Neg)
[2019-07-14] MEDS ORDERED: POLYETHYLENE (MIRALAX) 17 GM PACK PO PRN (15:56)
[2019-07-14] MEDS ORDERED: OXYCODONE HCL IR 5 MG TAB (IMMEDIATE RELEASE) PO PRN ×2 (15:56)
[2019-07-14] MEDS ORDERED: LINEZOLID 600 MG/300 ML D5W IV SCH (15:56)
[2019-07-14] MEDS ORDERED: PIPERACILLIN/TAZOBACTAM 3.375 GM in DEXTROSE 5% 100 ML IV SCH (15:56)
[2019-07-14] MEDS ORDERED: ALUMINUM/MAGNESIUM SUSP 30 ML UDC PO PRN (15:56)
[2019-07-14] MEDS ORDERED: ONDANSETRON INJ 2 MG/ML 2 ML VIAL IV PRN (15:56)
[2019-07-14] MEDS ORDERED: MAGNESIUM HYDROXIDE SUSP 30 ML UDC PO PRN (15:56)
[2019-07-14] MEDS ORDERED: CEFEPIME CONSULT ACTIVE PRN (16:04)
[2019-07-14] MEDS: ROPINIROLE HCL 1 MG TABLET PO SCH (16:16)
[2019-07-14 16:21] LABS: D Dimer 1470 ug/L FEU (0-500)
[2019-07-14] MEDS: ALBUT/IPRATROP 3MG/0.5MG NEB 3 ML VIAL NEB SCH ×3 (16:56→19:18)
--- NOTE | 2019-07-14 17:18 | CT Scan Report ---
HEAD CT NONCONTRAST CT DOSE: 3880.48 mGy.cm HISTORY: Altered mental status. Prior to heparin drip TECHNIQUE: Multiaxial CT images of the head were performed without the use of intravenous contrast. A utomated exposure control was utilized for this study. A dose lowering technique was utilized adheri ng to the principles of ALARA. Comparison: Head CT 09/06/2016. Findings: The paranasal sinuses and mastoid air cells are clear. The calvarium and skull base are int act. There is no mass, hematoma, midline shift, acute infarct. White matter hypodensity is nonspecifi c but suggestive of microvascular ischemic change. The ventricles and sulci demonstrate mild age-rela anh involutional changes. Motion artifact. Impression: Motion artifact. No definite acute intracranial abnormality. Electronically signed by: Darshan Yin M.D. 07/14/2019 5:16 PM
[2019-07-14] MEDS: GABAPENTIN 100 MG CAP PO SCH (17:27)
[2019-07-14] MEDS: methylPREDNISolone 40 MG in SYRINGE 0 ML IV SCH (17:32)
[2019-07-14] MEDS ORDERED: LINEZOLID 600 MG/300 ML BAG IV SCH (18:00)
[2019-07-14 18:07] LABS: Base Excess ABG 3.1 mEq/L (-9-1.8); HCO3 ABG 28 mmol/L (19-24); Oxygen Saturation ABG 96.8 % (90-95); PCO2 ABG 42 mmHg (35-46); PO2 ABG 98 mm/Hg (80-95); pH ABG 7.44 (7.35-7.45)
[2019-07-14 18:10] LABS: Allen Test Pos (Pos)
[2019-07-14 18:24] LABS: Albumin Level 2.2 gm/dl (3.4-5.0); BUN Creatinine Ratio 24.6 (10-20); Calcium 8.5 mg/dl (8.5-10.1); Creatinine Clr Calc Pharmacy 34.8 ml/min; Est GFR (African American) 32.3; Est GFR (Non-African American) 27.8; Potassium 4.1 mmol/L (3.5-5.1)
[2019-07-14 18:27] LABS: Albumin Globulin Ratio 0.8 (0.9-2); Bilirubin,Total 0.9 mg/dl (0.2-1); Globulin 2.8 gm/dl (2.5-4.0)
[2019-07-14 18:40] LABS: Hematocrit (blood only) 25.4 % (37-47); Hemoglobin 8.3 g/dL (12.0-16.0); Mean Corpuscular Hgb Conc 32.7 g/dL (32-36); Mean Corpuscular Volume 105.4 fL (80-100); Mean Platelet Volume 11.8 fL (7.4-10.4); Platelet Count 243 K/uL (130-400); RDW Coefficient of Variation 17.7 % (11.5-14.5); Red Blood Count 2.41 M/uL (4.2-5.4); White Blood Count 73.02 K/uL (4.8-10.8)
[2019-07-14 18:42] LABS: ALC (manual) 0.88 K/uL (1.2-3.4); Lymphocytes # (manual) 0.88 K/uL (1.2-3.4); Lymphocytes % (manual) 1.2 %; Metamyelocytes # (manual) 0.29 K/uL (0-0); Metamyelocytes % (manual) 0.4 %; Monocytes # (manual) 1.75 K/uL (0.11-0.59); Monocytes % (manual) 2.4 %; Myelocytes # (manual) 0.58 K/uL (0-0); Myelocytes % (manual) 0.8 %; Neutrophils % (manual) 95.2 %; Platelet Estimate Normal (Normal)
[2019-07-14] MEDS ORDERED: BUDESONIDE 0.5 MG/2 ML VIAL (PULMICORT) NEB SCH (19:00)
[2019-07-14] MEDS ORDERED: Heparin IV Standard *NO* Bolus IV SCH (19:15)
[2019-07-14] MEDS: HEPARIN SODIUM/DEXTROSE 25,000 UNITS/500 ML BAG IV SCH (19:57)
[2019-07-14] MEDS ORDERED: metroNIDAZOLE 500 MG/100 ML BAG IV SCH (20:00)
[2019-07-14] MEDS ORDERED: FUROSEMIDE 20 MG in SYRINGE 0 ML IV SCH (21:00)
[2019-07-14] MEDS ORDERED: RIVAROXABAN 15 MG TAB PO SCH (21:00)
--- NOTE | 2019-07-14 21:07 | Critical Care Consultation ---
Date of Consultation July 14, 2019 Assessment & Plan (1) Pneumonia: Reason Critically Ill: 88-year-old female with multiple comorbidities who presents with acute hypoxic respiratory failure with concern for sepsis and decompensated heart failure. PLAN: Neuro: Significant polypharmacy -Scaling back nonessential's given renal insufficiency Resp: Right lower lobe infiltrate -ABG reviewed on 40% FiO2 satting well Treatment for healthcare associated pneumonia -Cefepime, vancomycin, Levaquin -Sputum culture ordered -Influenza negative Possible COPD exacerbation -Solu-Medrol 40 mg IV every 12 -Holding steroid inhalers while on systemic steroids Obstructive sleep apnea -CPAP 10 cm of water nightly CV: Acute on chronic diastolic heart failure -Troponin negative, checking BNP -Echo ordered by hospitalist team -Evidence of volume overload on exam diuresis if blood pressure stable Hypotension -There is a single reading of a systolic less than 90, given echo history and clinical findings of hypertension initially I believe this is more cardiogenic in nature -Further the patient's lactic acid is improving and I think there is an aspect of poor forward flow secondary to significant venous congestion -Fluid can always be returned to the patient, she is agreeable with vasoactive medication should she need them however we will proceed with continued diuresis. Fluids/Renal: Acute kidney injury -We will proceed with diuresis question poor forward flow in the setting of chronic heart failure -Discontinue oral nonsteroidals, topical okay; allopurinol -Scaling back opiates given renal insufficiency -Holding gabapentin Lactic acidosis: Improving ID: Possible septic shock secondary to pneumonia -Blood cultures pending, sputum culture ordered, urine culture pending, influenza negative GI/Nutrition: Hypoalbuminemia -N.p.o. at this time Heme: Leukemoid reaction -Hematology consult placed by primary -Rule out myelodysplastic syndrome versus leukemia History of PE -Long-term systemic anticoagulation -Anticoagulation may be underdosed given patient's body weight -CT unable to obtain due to renal insufficiency, VQ scan would be nondiagnostic given chronic changes, empiric treatment with heparin DVT prophylaxis: Heparin infusion Endocrine: ICU hyperglycemia protocol Hypothyroidism Vascular access: Peripheral IVs, patient consented for central venous access Code Status: Confirmed DNR and DNI in event of respiratory insufficiency I have personally spent 85 minutes of critical care time in the direct management of this patient. This is a life/limb threatening event. This includes time spent evaluating patient, direct bedside care, chart review, placing orders, interpretation of diagnostic studies, discussion with consultants, patient, and/or family members regarding treatment decisions, as well as other required patient management activities. This time is exclusive of all separately billable procedures, and teaching time and separate from and in addition to any other critical care service time. (2) History of pulmonary embolism: (3) Diastolic CHF: (4) Neutrophilic leukemoid reaction: (5) Acute on chronic respiratory failure: (6) Acute hypotension: (7) Sepsis associated hypotension: (8) Polypharmacy: History of Present Illness Attending Physician: Elenita Anderson MD Patient is an 88-year-old female who presented to [facility] for acute on chronic hypoxic respiratory failure. She has a past medical history of COPD, diastolic CHF, not utilizing CPAP at night, pneumonia, remote history of pulmonary embolism who there is concern for hypotension and sepsis with a lactic acidosis for severe sepsis/septic shock. Patient is able to confirm and teach back her diagnosis as well as her clear indication she does not want intubated in event of respiratory insufficiency nor heroic measures undertaken in event of cardiac arrest. She is currently residing at [facility]. She denies chest pain she does have some hypoxia, she reported to the medicine service she feels like she is "[facility]" Allergies Allergy/AdvReac Type Severity Reaction Status Date / Time enoxaparin Allergy Intermediate RASH, Verified 07/14/19 12:13 PRURITUS Home Medications Home Medications Medication Instructions Recorded Confirmed Type Prilosec OTC 20 mg PO QAM 09/07/18 07/14/19 History Spiriva with HandiHaler 1 cap INHALATION QAM 09/07/18 07/14/19 History allopurinol 100 mg PO QAM 09/07/18 07/14/19 History duloxetine 30 mg PO HS 09/07/18 07/14/19 History fluticasone propion-salmeterol 1 inh INHALATION BID 09/07/18 07/14/19 History [Advair Diskus] gabapentin 600 mg PO HS 09/07/18 07/14/19 History losartan 50 mg PO QAM 09/07/18 07/14/19 History montelukast [Singulair] 10 mg PO PM 09/07/18 07/14/19 History albuterol sulfate 2.5 mg INH Q6H #90 ml 09/11/18 07/14/19 Rx Restasis MultiDose 1 drp OPHTHALMIC (EYE) BID 11/06/18 07/14/19 History acetaminophen 650 mg PO Q6H PRN MDD 3G 11/06/18 07/14/19 History albuterol sulfate [Ventolin HFA] 2 puff INHALATION Q4H PRN 11/06/18 07/14/19 History azelastine 2 spray INTRANASAL QAM 11/06/18 07/14/19 History fluticasone propionate [Flonase 2 spray INTRANASAL DAILY 11/06/18 07/14/19 History Allergy Relief] multivitamin 1 tab PO QAM 11/06/18 07/14/19 History Xarelto 15 mg PO PM 02/02/19 07/14/19 History acetaminophen [Tylenol Extra 1,000 mg PO HS 02/02/19 07/14/19 History Strength] diclofenac sodium [Voltaren] 2 g TOPICAL BID 02/02/19 07/14/19 History docusate sodium 100 mg PO BID 02/02/19 07/14/19 History ropinirole [Requip] 1 mg PO TID 02/02/19 07/14/19 History sodium chloride [[place] Nasal] 1 spray INTRANASAL UD PRN 02/02/19 07/14/19 History fentanyl 1 patch TRANSDERMAL Q72H #1 ea 02/08/19 07/14/19 Rx benzonatate [Tessalon Perles] 100 mg PO TID 07/14/19 07/14/19 History budesonide 0.5 mg NEB Q12H 07/14/19 07/14/19 History ceftriaxone 1 g IM Q24H 07/14/19 07/14/19 History furosemide [Lasix] 20 mg PO QAM 07/14/19 07/14/19 History gabapentin 200 mg PO BID 07/14/19 07/14/19 History levothyroxine 50 mcg PO QAM 07/14/19 07/14/19 History lidocaine HCl 2.1 ml IM Q24H 07/14/19 07/14/19 History oxycodone 5 mg PO QAM PRN 07/14/19 07/14/19 History oxycodone 10 mg PO HS PRN 07/14/19 07/14/19 History polyethylene glycol 3350 [Miralax] 17 g PO PM 07/14/19 07/14/19 History Patient History Medical History Chronic back pain RLS (restless legs syndrome) Chronic diastolic CHF (congestive heart failure) (Chronic) COPD exacerbation (Acute) Hypoxia (Acute) Hypertension (Chronic) Asthma (Chronic) CKD (chronic kidney disease), stage III (Chronic) DCIS (ductal carcinoma in situ) (~2012) Deep vein blood clot of right lower extremity History of pulmonary embolism Lung cancer (~2010) Spasmodic dysphonia Surgical History H/O mastectomy History of back surgery Hx of appendectomy Hx of hernia repair Hx of hysterectomy Hx of resection of liver Hx of total knee replacement Family History Other Family history non-contributory Social History Preferred Language: [place] Communication Ability: Effective 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 Beliefs That Will Affect Care: None Current Living Situation: Detention Other Information That Helps Us Care for You: No Feels Safe at Home: Yes Safety Concerns: Feels Safe At This Time Smoking Status: Never smoker Do You Dip or Chew Tobacco: No ; Second Hand Exposure: No ; Tobacco Cessation Education Requested by Patient: No Hx Alcohol Use: No Hx Substance Use: No Review of Systems Review of Systems: All systems reviewed & are unremarkable except as noted in HPI & below Physical Exam Physical Exam: General: Obese elderly female I have reviewed the recorded vital signs Neurological: RASS score: 0, Moves all 4 extremities, Psychological: GCS 15 following complex commands Eyes: Pupils are equal, round and reactive to light, anicteric sclera. Symmetrical lids. HENT: Oropharynx Clear, moist Mucous Membranes. Neck: Supple. Symmetric. trachea midline. No thyromegaly. Mild JVD Cardiovascular: Normal peripheral perfusion. Distal pulses and capillary refill intact. Mild JVD. Respiratory: Respirations are rapid but unlabored, no accessory muscle use. Breath sounds are equal., Rales bilaterally and coarse sounds Gastrointestinal: Soft. Non-distended. Lymphatic: No cervical lymphadenopathy. Musculoskeletal: Significant venous stasis thickened skin, hyperemia and pitting edema Results & Data Vital Signs (Past 12 Hours) Vital Signs Temp Pulse Pulse Resp BP BP Pulse Ox 07/14/19 20:00 36.9 C 85 22 109/57 L 98 07/14/19 19:22 84 22 99 07/14/19 19:00 89 18 94/48 L 99 07/14/19 18:30 98 H 82/40 L 96 07/14/19 17:53 96/48 L 07/14/19 17:39 23 96 07/14/19 17:28 107 H 93/41 L 07/14/19 16:04 37 C 103 H 20 91/48 L 96 07/14/19 16:03 97 H 23 99 07/14/19 15:23 103 H 20 99/43 L 95 07/14/19 15:13 99 H 20 99/43 L 07/14/19 15:00 96 H 22 93/63 L 99 07/14/19 14:30 103 H 18 88/53 L 94 07/14/19 14:00 96 H 21 102/47 L 99 07/14/19 13:44 97 H 27 H 98/51 L 99 07/14/19 13:30 98 H 32 H 90/52 L 100 07/14/19 13:00 101 H 16 105/50 L 100 07/14/19 12:45 110 H 21 99/58 L 100 07/14/19 12:33 103 H 25 H 104/53 L 99 07/14/19 12:13 106 H 20 97 07/14/19 12:04 99 07/14/19 11:37 97 07/14/19 11:30 36.8 C 112 H 19 178/141 H 97 07/14/19 11:28 107 H 26 H 170/141 H 96 07/14/19 11:24 108 H 20 99 Laboratory Results 07/14/19 07/14/19 07/14/19 Range/Units 17:52 17:49 17:49 WBC (4.8-10.8) K/uL RBC (4.2-5.4) M/uL Hgb (12.0-16.0) g/dL POC Hgb (12.0-16.0) g/dl Hct (37-47) % POC Hct (37-47) % MCV (80-100) fL MCH (25-34) pg MCHC (32-36) g/dL RDW Std Deviation (36.4-46.3) fL RDW Coeff of Marta (11.5-14.5) % Plt Count (130-400) K/uL MPV (7.4-10.4) fL Immature Gran % (Auto) % Neut % (Auto) % Lymph % (Auto) % [place] % (Auto) % Eos % (Auto) % Baso % (Auto) % Immature Gran # (Auto) (0.00-0.02) K/uL Neut # (Auto) (1.4-6.5) K/uL Lymph # (Auto) (1.2-3.4) K/uL [place] # (Auto) (0.11-0.59) K/uL Eos # (Auto) (0-0.5) K/uL Baso # (Auto) (0-0.2) K/uL Neutrophils % (Manual) % Lymphocytes % (Manual) % Monocytes % (Manual) % Metamyelocytes % (Man) % Myelocytes % (Man) % Neutrophils # (Manual) (1.4-6.5) K/uL Total Absolute Neuts (1.4-6.5) K/uL Lymphocytes # (Manual) (1.2-3.4) K/uL Total Abs Lymphocytes (1.2-3.4) K/uL Monocytes # (Manual) (0.11-0.59) K/uL Metamyelocytes # (Man) (0-0) K/uL Myelocytes # (Manual) (0-0) K/uL Platelet Estimate (Normal) Peripher Smr Path Cons PT (9.0-12.0) Seconds INR (0.9-1.1) APTT (21.0-31.0) Seconds PTT Ratio D-Dimer (0-500) ug/L FEU ABG pH 7.44 (7.35-7.45) ABG pCO2 42 (35-46) mmHg ABG pO2 98 H (80-95) mm/Hg ABG HCO3 28 H (19-24) mmol/L ABG O2 Saturation 96.8 H (90-95) % ABG Base Excess 3.1 H (-9-1.8) mEq/L Thai Test Pos (Pos) Barometric Pressure 737.0 mm/Hg Oxygen Given 40% POC Sodium (135-144) mEq/L Sodium 142 (136-145) mmol/L POC Potassium (3.3-5.0) mEq/L Potassium 4.1 (3.5-5.1) mmol/L POC Chloride (101-112) mEq/L Chloride 107 (98-107) mmol/L Carbon Dioxide 30 (21-32) mmol/L POC Total CO2 (24-31) mEq/l Anion Gap 6.0 (3-11) POC Anion Gap (16-25) mmol/L POC BUN (7-18) mg/dl BUN 40 H (7-18) mg/dl Creatinine 1.64 H (0.6-1.2) mg/dl POC Creatinine (0.6-1.3) mg/dl Est Cr Clr Drug Dosing 34.8 ml/min Est GFR ( Amer) 32.3 Est GFR (Non-Af Amer) 27.8 BUN/Creatinine Ratio 24.6 H (10-20) Glucose 139 H (70-99) mg/dl POC Glucose (other) (70-99) mg/dl POC Lactic Acid Binu (0.90-1.70) mmol/L Lactate (0.4-2.0) mmol/L Calcium 8.5 (8.5-10.1) mg/dl POC Ioniz Calcium Maurilio (1.12-1.32) mmol/l Total Bilirubin 0.9 (0.2-1) mg/dl AST 25 (15-37) U/L ALT 25 (12-78) U/L Alkaline Phosphatase 79 (45-117) U/L Total Creatine Kinase (26-192) U/L CK-MB (CK-2) (0.5-3.6) ng/ml CK/CKMB % Calc Troponin I (0-0.045) ng/ml Total Protein 5.0 L (6.4-8.2) gm/dl Albumin 2.2 L (3.4-5.0) gm/dl Globulin 2.8 (2.5-4.0) gm/dl Albumin/Globulin Ratio 0.8 L (0.9-2) Procalcitonin (0-0.5) ng/ml Urine Color Urine Appearance (Clear) Urine pH (4.5-7.5) Ur Specific [place] (1.000-1.030) Urine Protein (Negative) Urine Glucose (UA) (Negative) Urine Ketones (Negative) Urine Blood (Negative) Urine Nitrite (Negative) Urine Bilirubin (Negative) Urine Urobilinogen (Negative) Ur Leukocyte Esterase (Negative) Urine WBC (Auto) (0-5) /hpf Urine RBC (Auto) (0-4) /hpf U Hyaline Cast (Auto) (0-5) /lpf U Epithel Cells (Auto) (0-5) /lpf Urine Bacteria (Auto) (Negative) Nasal Screen MRSA (PCR) Positive A (Negative) Influenza Type A (PCR) (Neg) Influenza Type B (PCR) (Neg) 07/14/19 07/14/19 07/14/19 Range/Units 17:49 17:49 15:10 WBC 73.02 H* (4.8-10.8) K/uL RBC 2.41 L (4.2-5.4) M/uL Hgb 8.3 L (12.0-16.0) g/dL POC Hgb (12.0-16.0) g/dl Hct 25.4 L (37-47) % POC Hct (37-47) % MCV 105.4 H (80-100) fL MCH 34.4 H (25-34) pg MCHC 32.7 (32-36) g/dL RDW Std Deviation 68.0 H (36.4-46.3) fL RDW Coeff of Marta 17.7 H (11.5-14.5) % Plt Count 243 (130-400) K/uL MPV 11.8 H (7.4-10.4) fL Immature Gran % (Auto) % Neut % (Auto) % Lymph % (Auto) % [place] % (Auto) % Eos % (Auto) % Baso % (Auto) % Immature Gran # (Auto) (0.00-0.02) K/uL Neut # (Auto) (1.4-6.5) K/uL Lymph # (Auto) (1.2-3.4) K/uL [place] # (Auto) (0.11-0.59) K/uL Eos # (Auto) (0-0.5) K/uL Baso # (Auto) (0-0.2) K/uL Neutrophils % (Manual) 95.2 % Lymphocytes % (Manual) 1.2 % Monocytes % (Manual) 2.4 % Metamyelocytes % (Man) 0.4 % Myelocytes % (Man) 0.8 % Neutrophils # (Manual) 69.52 H (1.4-6.5) K/uL Total Absolute Neuts 69.52 H (1.4-6.5) K/uL Lymphocytes # (Manual) 0.88 L (1.2-3.4) K/uL Total Abs Lymphocytes 0.88 L (1.2-3.4) K/uL Monocytes # (Manual) 1.75 H (0.11-0.59) K/uL Metamyelocytes # (Man) 0.29 H (0-0) K/uL Myelocytes # (Manual) 0.58 H (0-0) K/uL Platelet Estimate Normal (Normal) Peripher Smr Path Cons PT (9.0-12.0) Seconds INR (0.9-1.1) APTT (21.0-31.0) Seconds PTT Ratio D-Dimer (0-500) ug/L FEU ABG pH (7.35-7.45) ABG pCO2 (35-46) mmHg ABG pO2 (80-95) mm/Hg ABG HCO3 (19-24) mmol/L ABG O2 Saturation (90-95) % ABG Base Excess (-9-1.8) mEq/L Thai Test (Pos) Barometric Pressure mm/Hg Oxygen Given POC Sodium (135-144) mEq/L Sodium (136-145) mmol/L POC Potassium (3.3-5.0) mEq/L Potassium (3.5-5.1) mmol/L POC Chloride (101-112) mEq/L Chloride (98-107) mmol/L Carbon Dioxide (21-32) mmol/L POC Total CO2 (24-31) mEq/l Anion Gap (3-11) POC Anion Gap (16-25) mmol/L POC BUN (7-18) mg/dl BUN (7-18) mg/dl Creatinine (0.6-1.2) mg/dl POC Creatinine (0.6-1.3) mg/dl Est Cr Clr Drug Dosing ml/min Est GFR ( Amer) Est GFR (Non-Af Amer) BUN/Creatinine Ratio (10-20) Glucose (70-99) mg/dl POC Glucose (other) (70-99) mg/dl POC Lactic Acid Binu (0.90-1.70) mmol/L Lactate 2.4 H* (0.4-2.0) mmol/L Calcium (8.5-10.1) mg/dl POC Ioniz Calcium Maurilio (1.12-1.32) mmol/l Total Bilirubin (0.2-1) mg/dl AST (15-37) U/L ALT (12-78) U/L Alkaline Phosphatase (45-117) U/L Total Creatine Kinase (26-192) U/L CK-MB (CK-2) (0.5-3.6) ng/ml CK/CKMB % Calc Troponin I (0-0.045) ng/ml Total Protein (6.4-8.2) gm/dl Albumin (3.4-5.0) gm/dl Globulin (2.5-4.0) gm/dl Albumin/Globulin Ratio (0.9-2) Procalcitonin (0-0.5) ng/ml Urine Color Urine Appearance (Clear) Urine pH (4.5-7.5) Ur Specific [place] (1.000-1.030) Urine Protein (Negative) Urine Glucose (UA) (Negative) Urine Ketones (Negative) Urine Blood (Negative) Urine Nitrite (Negative) Urine Bilirubin (Negative) Urine Urobilinogen (Negative) Ur Leukocyte Esterase (Negative) Urine WBC (Auto) (0-5) /hpf Urine RBC (Auto) (0-4) /hpf U Hyaline Cast (Auto) (0-5) /lpf U Epithel Cells (Auto) (0-5) /lpf Urine Bacteria (Auto) (Negative) Nasal Screen MRSA (PCR) (Negative) Influenza Type A (PCR) Neg for Influ A (Neg) Influenza Type B (PCR) Neg for Influ B (Neg) 07/14/19 07/14/19 07/14/19 Range/Units 15:07 15:07 15:07 WBC (4.8-10.8) K/uL RBC (4.2-5.4) M/uL Hgb (12.0-16.0) g/dL POC Hgb (12.0-16.0) g/dl Hct (37-47) % POC Hct (37-47) % MCV (80-100) fL MCH (25-34) pg MCHC (32-36) g/dL RDW Std Deviation (36.4-46.3) fL RDW Coeff of Marta (11.5-14.5) % Plt Count (130-400) K/uL MPV (7.4-10.4) fL Immature Gran % (Auto) % Neut % (Auto) % Lymph % (Auto) % [place] % (Auto) % Eos % (Auto) % Baso % (Auto) % Immature Gran # (Auto) (0.00-0.02) K/uL Neut # (Auto) (1.4-6.5) K/uL Lymph # (Auto) (1.2-3.4) K/uL [place] # (Auto) (0.11-0.59) K/uL Eos # (Auto) (0-0.5) K/uL Baso # (Auto) (0-0.2) K/uL Neutrophils % (Manual) % Lymphocytes % (Manual) % Monocytes % (Manual) % Metamyelocytes % (Man) % Myelocytes % (Man) % Neutrophils # (Manual) (1.4-6.5) K/uL Total Absolute Neuts (1.4-6.5) K/uL Lymphocytes # (Manual) (1.2-3.4) K/uL Total Abs Lymphocytes (1.2-3.4) K/uL Monocytes # (Manual) (0.11-0.59) K/uL Metamyelocytes # (Man) (0-0) K/uL Myelocytes # (Manual) (0-0) K/uL Platelet Estimate (Normal) Peripher Smr Path Cons PT (9.0-12.0) Seconds INR (0.9-1.1) APTT (21.0-31.0) Seconds PTT Ratio D-Dimer (0-500) ug/L FEU ABG pH (7.35-7.45) ABG pCO2 (35-46) mmHg ABG pO2 (80-95) mm/Hg ABG HCO3 (19-24) mmol/L ABG O2 Saturation (90-95) % ABG Base Excess (-9-1.8) mEq/L Thai Test (Pos) Barometric Pressure mm/Hg Oxygen Given POC Sodium (135-144) mEq/L Sodium (136-145) mmol/L POC Potassium (3.3-5.0) mEq/L Potassium 3.8 (3.5-5.1) mmol/L POC Chloride (101-112) mEq/L Chloride (98-107) mmol/L Carbon Dioxide (21-32) mmol/L POC Total CO2 (24-31) mEq/l Anion Gap (3-11) POC Anion Gap (16-25) mmol/L POC BUN (7-18) mg/dl BUN (7-18) mg/dl Creatinine (0.6-1.2) mg/dl POC Creatinine (0.6-1.3) mg/dl Est Cr Clr Drug Dosing ml/min Est GFR ( Amer) Est GFR (Non-Af Amer) BUN/Creatinine Ratio (10-20) Glucose (70-99) mg/dl POC Glucose (other) (70-99) mg/dl POC Lactic Acid Binu (0.90-1.70) mmol/L Lactate 3.8 H* (0.4-2.0) mmol/L Calcium (8.5-10.1) mg/dl POC Ioniz Calcium Maurilio (1.12-1.32) mmol/l Total Bilirubin (0.2-1) mg/dl AST 24 (15-37) U/L ALT (12-78) U/L Alkaline Phosphatase (45-117) U/L Total Creatine Kinase 15 L (26-192) U/L CK-MB (CK-2) (0.5-3.6) ng/ml CK/CKMB % Calc Troponin I (0-0.045) ng/ml Total Protein (6.4-8.2) gm/dl Albumin (3.4-5.0) gm/dl Globulin (2.5-4.0) gm/dl Albumin/Globulin Ratio (0.9-2) Procalcitonin 32.92 H (0-0.5) ng/ml Urine Color Urine Appearance (Clear) Urine pH (4.5-7.5) Ur Specific [place] (1.000-1.030) Urine Protein (Negative) Urine Glucose (UA) (Negative) Urine Ketones (Negative) Urine Blood (Negative) Urine Nitrite (Negative) Urine Bilirubin (Negative) Urine Urobilinogen (Negative) Ur Leukocyte Esterase (Negative) Urine WBC (Auto) (0-5) /hpf Urine RBC (Auto) (0-4) /hpf U Hyaline Cast (Auto) (0-5) /lpf U Epithel Cells (Auto) (0-5) /lpf Urine Bacteria (Auto) (Negative) Nasal Screen MRSA (PCR) (Negative) Influenza Type A (PCR) (Neg) Influenza Type B (PCR) (Neg) 07/14/19 07/14/19 07/14/19 Range/Units 12:30 12:22 12:15 WBC (4.8-10.8) K/uL RBC (4.2-5.4) M/uL Hgb (12.0-16.0) g/dL POC Hgb 10.9 L (12.0-16.0) g/dl Hct (37-47) % POC Hct 32 L (37-47) % MCV (80-100) fL MCH (25-34) pg MCHC (32-36) g/dL RDW Std Deviation (36.4-46.3) fL RDW Coeff of Marta (11.5-14.5) % Plt Count (130-400) K/uL MPV (7.4-10.4) fL Immature Gran % (Auto) % Neut % (Auto) % Lymph % (Auto) % [place] % (Auto) % Eos % (Auto) % Baso % (Auto) % Immature Gran # (Auto) (0.00-0.02) K/uL Neut # (Auto) (1.4-6.5) K/uL Lymph # (Auto) (1.2-3.4) K/uL [place] # (Auto) (0.11-0.59) K/uL Eos # (Auto) (0-0.5) K/uL Baso # (Auto) (0-0.2) K/uL Neutrophils % (Manual) % Lymphocytes % (Manual) % Monocytes % (Manual) % Metamyelocytes % (Man) % Myelocytes % (Man) % Neutrophils # (Manual) (1.4-6.5) K/uL Total Absolute Neuts (1.4-6.5) K/uL Lymphocytes # (Manual) (1.2-3.4) K/uL Total Abs Lymphocytes (1.2-3.4) K/uL Monocytes # (Manual) (0.11-0.59) K/uL Metamyelocytes # (Man) (0-0) K/uL Myelocytes # (Manual) (0-0) K/uL Platelet Estimate (Normal) Peripher Smr Path Cons PT (9.0-12.0) Seconds INR (0.9-1.1) APTT (21.0-31.0) Seconds PTT Ratio D-Dimer (0-500) ug/L FEU ABG pH (7.35-7.45) ABG pCO2 (35-46) mmHg ABG pO2 (80-95) mm/Hg ABG HCO3 (19-24) mmol/L ABG O2 Saturation (90-95) % ABG Base Excess (-9-1.8) mEq/L Thai Test (Pos) Barometric Pressure mm/Hg Oxygen Given POC Sodium 140 (135-144) mEq/L Sodium (136-145) mmol/L POC Potassium 4.0 (3.3-5.0) mEq/L Potassium (3.5-5.1) mmol/L POC Chloride 101 (101-112) mEq/L Chloride (98-107) mmol/L Carbon Dioxide (21-32) mmol/L POC Total CO2 30 (24-31) mEq/l Anion Gap (3-11) POC Anion Gap 14.0 L (16-25) mmol/L POC BUN 35 H (7-18) mg/dl BUN (7-18) mg/dl Creatinine (0.6-1.2) mg/dl POC Creatinine 1.6 H (0.6-1.3) mg/dl Est Cr Clr Drug Dosing ml/min Est GFR ( Amer) Est GFR (Non-Af Amer) BUN/Creatinine Ratio (10-20) Glucose (70-99) mg/dl POC Glucose (other) 109 H (70-99) mg/dl POC Lactic Acid Binu 3.16 H (0.90-1.70) mmol/L Lactate (0.4-2.0) mmol/L Calcium (8.5-10.1) mg/dl POC Ioniz Calcium Maurilio 1.20 (1.12-1.32) mmol/l Total Bilirubin (0.2-1) mg/dl AST (15-37) U/L ALT (12-78) U/L Alkaline Phosphatase (45-117) U/L Total Creatine Kinase (26-192) U/L CK-MB (CK-2) (0.5-3.6) ng/ml CK/CKMB % Calc Troponin I (0-0.045) ng/ml Total Protein (6.4-8.2) gm/dl Albumin (3.4-5.0) gm/dl Globulin (2.5-4.0) gm/dl Albumin/Globulin Ratio (0.9-2) Procalcitonin (0-0.5) ng/ml Urine Color Yellow Urine Appearance Cloudy A (Clear) Urine pH 7.0 (4.5-7.5) Ur Specific [place] 1.012 (1.000-1.030) Urine Protein Negative (Negative) Urine Glucose (UA) Negative (Negative) Urine Ketones Negative (Negative) Urine Blood Trace H (Negative) Urine Nitrite Positive A (Negative) Urine Bilirubin Negative (Negative) Urine Urobilinogen Negative (Negative) Ur Leukocyte Esterase 2+ H (Negative) Urine WBC (Auto) >30 H (0-5) /hpf Urine RBC (Auto) 0-4 (0-4) /hpf U Hyaline Cast (Auto) 5-10 H (0-5) /lpf U Epithel Cells (Auto) 0-5 (0-5) /lpf Urine Bacteria (Auto) 3+ H (Negative) Nasal Screen MRSA (PCR) (Negative) Influenza Type A (PCR) (Neg) Influenza Type B (PCR) (Neg) 07/14/19 07/14/19 07/14/19 Range/Units 12:07 12:07 12:07 WBC (4.8-10.8) K/uL RBC (4.2-5.4) M/uL Hgb (12.0-16.0) g/dL POC Hgb (12.0-16.0) g/dl Hct (37-47) % POC Hct (37-47) % MCV (80-100) fL MCH (25-34) pg MCHC (32-36) g/dL RDW Std Deviation (36.4-46.3) fL RDW Coeff of Marta (11.5-14.5) % Plt Count (130-400) K/uL MPV (7.4-10.4) fL Immature Gran % (Auto) % Neut % (Auto) % Lymph % (Auto) % [place] % (Auto) % Eos % (Auto) % Baso % (Auto) % Immature Gran # (Auto) (0.00-0.02) K/uL Neut # (Auto) (1.4-6.5) K/uL Lymph # (Auto) (1.2-3.4) K/uL [place] # (Auto) (0.11-0.59) K/uL Eos # (Auto) (0-0.5) K/uL Baso # (Auto) (0-0.2) K/uL Neutrophils % (Manual) % Lymphocytes % (Manual) % Monocytes % (Manual) % Metamyelocytes % (Man) % Myelocytes % (Man) % Neutrophils # (Manual) (1.4-6.5) K/uL Total Absolute Neuts (1.4-6.5) K/uL Lymphocytes # (Manual) (1.2-3.4) K/uL Total Abs Lymphocytes (1.2-3.4) K/uL Monocytes # (Manual) (0.11-0.59) K/uL Metamyelocytes # (Man) (0-0) K/uL Myelocytes # (Manual) (0-0) K/uL Platelet Estimate (Normal) Peripher Smr Path Cons PT (9.0-12.0) Seconds INR (0.9-1.1) APTT (21.0-31.0) Seconds PTT Ratio D-Dimer 1470 H* (0-500) ug/L FEU ABG pH (7.35-7.45) ABG pCO2 (35-46) mmHg ABG pO2 (80-95) mm/Hg ABG HCO3 (19-24) mmol/L ABG O2 Saturation (90-95) % ABG Base Excess (-9-1.8) mEq/L [place] Test (Pos) Barometric Pressure mm/Hg Oxygen Given POC Sodium (135-144) mEq/L Sodium 143 (136-145) mmol/L POC Potassium (3.3-5.0) mEq/L Potassium (3.5-5.1) mmol/L POC Chloride (101-112) mEq/L Chloride 106 (98-107) mmol/L Carbon Dioxide 33 H (21-32) mmol/L POC Total CO2 (24-31) mEq/l Anion Gap 4.0 (3-11) POC Anion Gap (16-25) mmol/L POC BUN (7-18) mg/dl BUN 32 H (7-18) mg/dl Creatinine 1.62 H (0.6-1.2) mg/dl POC Creatinine (0.6-1.3) mg/dl Est Cr Clr Drug Dosing 35.2 ml/min Est GFR ( Amer) 32.7 Est GFR (Non-Af Amer) 28.2 BUN/Creatinine Ratio 19.9 (10-20) Glucose 104 H (70-99) mg/dl POC Glucose (other) (70-99) mg/dl POC Lactic Acid Binu (0.90-1.70) mmol/L Lactate (0.4-2.0) mmol/L Calcium 8.8 (8.5-10.1) mg/dl POC Ioniz Calcium [place] (1.12-1.32) mmol/l Total Bilirubin 1.0 (0.2-1) mg/dl AST (15-37) U/L ALT 33 (12-78) U/L Alkaline Phosphatase 95 (45-117) U/L Total Creatine Kinase (26-192) U/L CK-MB (CK-2) < 1.0 (0.5-3.6) ng/ml CK/CKMB % Calc TNP Troponin I < 0.015 (0-0.045) ng/ml Total Protein 5.7 L (6.4-8.2) gm/dl Albumin 2.6 L (3.4-5.0) gm/dl Globulin 3.1 (2.5-4.0) gm/dl Albumin/Globulin Ratio 0.8 L (0.9-2) Procalcitonin (0-0.5) ng/ml Urine Color Urine Appearance (Clear) Urine pH (4.5-7.5) Ur Specific [place] (1.000-1.030) Urine Protein (Negative) Urine Glucose (UA) (Negative) Urine Ketones (Negative) Urine Blood (Negative) Urine Nitrite (Negative) Urine Bilirubin (Negative) Urine Urobilinogen (Negative) Ur Leukocyte Esterase (Negative) Urine WBC (Auto) (0-5) /hpf Urine RBC (Auto) (0-4) /hpf U Hyaline Cast (Auto) (0-5) /lpf U Epithel Cells (Auto) (0-5) /lpf Urine Bacteria (Auto) (Negative) Nasal Screen MRSA (PCR) (Negative) Influenza Type A (PCR) (Neg) Influenza Type B (PCR) (Neg) 07/14/19 07/14/19 Range/Units 12:07 12:07 WBC 80.50 H* (4.8-10.8) K/uL RBC 2.84 L (4.2-5.4) M/uL Hgb 10.0 L (12.0-16.0) g/dL POC Hgb (12.0-16.0) g/dl Hct 30.5 L (37-47) % POC Hct (37-47) % MCV 107.4 H (80-100) fL MCH 35.2 H (25-34) pg MCHC 32.8 (32-36) g/dL RDW Std Deviation 68.5 H (36.4-46.3) fL RDW Coeff of Marta 17.4 H (11.5-14.5) % Plt Count 257 (130-400) K/uL MPV 12.2 H (7.4-10.4) fL Immature Gran % (Auto) 4.8 % Neut % (Auto) 86.4 % Lymph % (Auto) 3.2 % [place] % (Auto) 5.5 % Eos % (Auto) 0.0 % Baso % (Auto) 0.1 % Immature Gran # (Auto) 3.84 H (0.00-0.02) K/uL Neut # (Auto) 69.53 H (1.4-6.5) K/uL Lymph # (Auto) 2.58 (1.2-3.4) K/uL [place] # (Auto) 4.45 H (0.11-0.59) K/uL Eos # (Auto) 0.01 (0-0.5) K/uL Baso # (Auto) 0.09 (0-0.2) K/uL Neutrophils % (Manual) % Lymphocytes % (Manual) % Monocytes % (Manual) % Metamyelocytes % (Man) % Myelocytes % (Man) % Neutrophils # (Manual) (1.4-6.5) K/uL Total Absolute Neuts (1.4-6.5) K/uL Lymphocytes # (Manual) (1.2-3.4) K/uL Total Abs Lymphocytes (1.2-3.4) K/uL Monocytes # (Manual) (0.11-0.59) K/uL Metamyelocytes # (Man) (0-0) K/uL Myelocytes # (Manual) (0-0) K/uL Platelet Estimate Normal (Normal) Peripher Smr Path Cons Pending PT 11.6 (9.0-12.0) Seconds INR 1.1 (0.9-1.1) APTT 25.1 (21.0-31.0) Seconds PTT Ratio 0.9 D-Dimer (0-500) ug/L FEU ABG pH (7.35-7.45) ABG pCO2 (35-46) mmHg ABG pO2 (80-95) mm/Hg ABG HCO3 (19-24) mmol/L ABG O2 Saturation (90-95) % ABG Base Excess (-9-1.8) mEq/L [place] Test (Pos) Barometric Pressure mm/Hg Oxygen Given POC Sodium (135-144) mEq/L Sodium (136-145) mmol/L POC Potassium (3.3-5.0) mEq/L Potassium (3.5-5.1) mmol/L POC Chloride (101-112) mEq/L Chloride (98-107) mmol/L Carbon Dioxide (21-32) mmol/L POC Total CO2 (24-31) mEq/l Anion Gap (3-11) POC Anion Gap (16-25) mmol/L POC BUN (7-18) mg/dl BUN (7-18) mg/dl Creatinine (0.6-1.2) mg/dl POC Creatinine (0.6-1.3) mg/dl Est Cr Clr Drug Dosing ml/min Est GFR ( Amer) Est GFR (Non-Af Amer) BUN/Creatinine Ratio (10-20) Glucose (70-99) mg/dl POC Glucose (other) (70-99) mg/dl POC Lactic Acid Binu (0.90-1.70) mmol/L Lactate (0.4-2.0) mmol/L Calcium (8.5-10.1) mg/dl POC Ioniz Calcium [place] (1.12-1.32) mmol/l Total Bilirubin (0.2-1) mg/dl AST (15-37) U/L ALT (12-78) U/L Alkaline Phosphatase (45-117) U/L Total Creatine Kinase (26-192) U/L CK-MB (CK-2) (0.5-3.6) ng/ml CK/CKMB % Calc Troponin I (0-0.045) ng/ml Total Protein (6.4-8.2) gm/dl Albumin (3.4-5.0) gm/dl Globulin (2.5-4.0) gm/dl Albumin/Globulin Ratio (0.9-2) Procalcitonin (0-0.5) ng/ml Urine Color Urine Appearance (Clear) Urine pH (4.5-7.5) Ur Specific [place] (1.000-1.030) Urine Protein (Negative) Urine Glucose (UA) (Negative) Urine Ketones (Negative) Urine Blood (Negative) Urine Nitrite (Negative) Urine Bilirubin (Negative) Urine Urobilinogen (Negative) Ur Leukocyte Esterase (Negative) Urine WBC (Auto) (0-5) /hpf Urine RBC (Auto) (0-4) /hpf U Hyaline Cast (Auto) (0-5) /lpf U Epithel Cells (Auto) (0-5) /lpf Urine Bacteria (Auto) (Negative) Nasal Screen MRSA (PCR) (Negative) Influenza Type A (PCR) (Neg) Influenza Type B (PCR) (Neg) Diagnostic Findings I have reviewed the chest x-ray as well as the radiology report and I have independently reviewed the images of the CT head as well as the radiology report. I believe that there is a right lower lobe infiltrate superimposed on congestive changes. PG Care Time/CCT Total # of Minutes Spent Total Time Spent: 85 Total Time Spent with Patient: Total time spent is greater than 50% in coordination of care (as documented) at patient's floor/unit and/or counseling patient: (1) Diastolic CHF Heart failure chronicity: acute on chronic Qualified Code(s): I50.33 - Acute on chronic diastolic (congestive) heart failure (2) Acute on chronic respiratory failure Respiratory failure complication: hypoxia Qualified Code(s): J96.21 - Acute and chronic respiratory failure with hypoxia (3) Pneumonia Laterality: unspecified laterality Lung location: unspecified part of lung Pneumonia type: due to unspecified organism Qualified Code(s): J18.9 - Pneumonia, unspecified organism
--- NOTE | 2019-07-14 21:13 | Pharmacy Report ---
Pharmacy Abx Dose Short Note - Date of Service July 14, 2019 - Assessment & Plan Assessment 88 year old F receiving VANCOMYCIN/CEFEPIME/FLAGYL for treatment of POSSIBLE PULMONARY INFECTION. PATIENT ORIGINALLY ORDERED ZYVOX - HOWEVER, THE PATIENT IS ON FENTANYL PATCH. THIS IS CONTRAINDICATED Day # 1 of antimicrobial therapy. Plan Vancomycin * PATIENT HAS AN ACUTE KIDNEY INJURY- BASELINE PKS ARE SLOAN OF 0.046 HR-1 AND HALF LIFE OF 15 HOURS (CURRENTLY SLOAN IS 0.03 AND HALF LIFE AROUND 23 HOURS). VD = 0.5 L/KG. * PATIENT IS AT VERY HIGH RISK FOR ACCUMULATION DUE TO BMI OF 49.5 PLUS MICHI. * GIVE ONLY VANCOMYCIN 2750 MG IV X 1 (19 MG/KG) * VANCOMYCIN 1750 (12.7 MG/KG) IV [id number] - INDICATION IS EMPIRIC. * NO TROUGH ORDERED SINCE EMPIRIC INDICATION Pharmacy will continue to follow and will adjust dose/frequency as necessary. Thank you.
[2019-07-14] MEDS: FLUTICASONE/SALMETEROL (ADVAIR) 500/50 INH 14 PUFF INH SCH (21:41)
[2019-07-14] MEDS: DICLOFENAC SOD 1% GEL 100 GM TUBE EXT SCH (22:00)
[2019-07-14] MEDS ORDERED: BUMETANIDE 1 MG in SYRINGE 0 ML IV ONE (22:15)
[2019-07-14] MEDS ORDERED: POTASSIUM CHLORIDE 20 MEQ/15 ML UDC PO ONE (22:15)
[2019-07-14] MEDS: DULOXETINE HCL 30 MG CAP PO SCH (22:19)
[2019-07-14] MEDS: DOCUSATE SODIUM 100 MG CAP PO SCH (22:19)
[2019-07-14] MEDS: ACETAMINOPHEN 500 MG TAB PO SCH (22:19)
[2019-07-14] MEDS: GABAPENTIN 600 MG TAB PO SCH (22:19)
[2019-07-14] MEDS: MONTELUKAST SODIUM 10 MG TABLET PO SCH (22:19)
[2019-07-15] MEDS: CHECK FENTANYL PATCH PLACEMENT SCH ×4 (00:28→22:58)
[2019-07-15 02:51] LABS: BUN Creatinine Ratio 26.2 (10-20); Calcium 8.4 mg/dl (8.5-10.1); Creatinine Clr Calc Pharmacy 34.4 ml/min; Est GFR (African American) 31.8; Est GFR (Non-African American) 27.4; Potassium 4.6 mmol/L (3.5-5.1)
[2019-07-15 02:53] LABS: Partial Thromboplastin Ratio 2.2
[2019-07-15 03:05] LABS: Partial Thromboplastin Time 60.4 Seconds (21.0-31.0)
[2019-07-15 03:15] LABS: Hematocrit (blood only) 26.3 % (37-47); Hemoglobin 8.7 g/dL (12.0-16.0); Mean Corpuscular Hgb Conc 33.1 g/dL (32-36); Mean Corpuscular Volume 104.8 fL (80-100); Mean Platelet Volume 12.1 fL (7.4-10.4); Platelet Count 281 K/uL (130-400); RDW Coefficient of Variation 17.9 % (11.5-14.5); RDW Standard Deviation 68.4 fL (36.4-46.3); Red Blood Count 2.51 M/uL (4.2-5.4); White Blood Count 65.51 K/uL (4.8-10.8)
[2019-07-15] MEDS ORDERED: CEFEPIME 2,000 MG in SYRINGE 7.5 ML IV SCH (04:00)
[2019-07-15] MEDS ORDERED: ADENOSINE IV SOLN 3 MG/ML 2 ML VIAL IV ONE ×3 (04:19→04:33)
[2019-07-15] MEDS ORDERED: ADENOSINE IV SOLN 3 MG/ML 2 ML VIAL IV STA ×3 (04:36→04:38)
[2019-07-15] MEDS ORDERED: AMIODARONE 150MG / 100ML D5W IV ONE (04:36)
[2019-07-15] MEDS ORDERED: AMIODARONE 360MG / 200ML D5W IV ONE (04:37)
[2019-07-15] MEDS ORDERED: AMIODARONE IV BOLUS / DRIP IV STA (04:39)
[2019-07-15] MEDS ORDERED: AMIODARONE / D5W 150 MG/100 ML BAG IV STA (04:39)
--- NOTE | 2019-07-15 04:43 | Progress Note ---
Date of Service July 15, 2019 Subjective Called by nurse at 04:30. Patient with sustained narrow complex tachycardia with rates 140 - 180. Irregularly irregular Patient awake, alert and appropriate Blood pressure stable Labs and EKG reviewed - AF vs reentry arrhythmia. Adenosine 6mg, 12mg, 12mg administered with temporary slowing then return to tachycardia. Underlying rhythm appears to be atrial fibrillation. Amiodarone 150mg IV then gtt initiated Will continue to monitor Results & Data Vital Signs (Past 12 Hours) Vital Signs Temp Pulse Pulse Resp BP BP Pulse Ox 07/15/19 03:00 27 H 92/78 L 93 07/15/19 02:16 98 H 22 96 07/15/19 02:01 101 H 20 106/49 L 94 07/15/19 01:34 97 H 25 H 174/137 H 95 07/15/19 01:00 97 H 26 H 94 07/15/19 00:00 37.0 C 95 H 20 115/54 L 93 07/14/19 23:00 95 H 25 H 116/60 94 07/14/19 22:41 131 H 28 H 96 07/14/19 22:00 91 H 28 H 98/59 L 95 07/14/19 21:45 99 H 20 95 07/14/19 21:00 96 H 20 102/51 L 96 07/14/19 20:50 100 H 07/14/19 20:00 36.9 C 85 22 109/57 L 98 07/14/19 19:22 84 22 99 07/14/19 19:00 89 18 94/48 L 99 07/14/19 18:30 98 H 82/40 L 96 07/14/19 17:53 96/48 L 07/14/19 17:39 23 96 07/14/19 17:28 107 H 93/41 L PG Care Time/CCT Total # of Minutes Spent Total Time Spent with Patient: Total time spent is greater than 50% in coordination of care (as documented) at patient's floor/unit and/or counseling patient:
[2019-07-15] MEDS ORDERED: AMIODARONE / D5W 360 MG/200 ML BAG IV SCH ×2 (05:00→11:00)
[2019-07-15] MEDS: methylPREDNISolone 40 MG in SYRINGE 0 ML IV SCH (05:00)
--- NOTE | 2019-07-15 05:31 | Critical Care Progress Note ---
Date of Service July 15, 2019 Results & Data Vital Signs (Past 12 Hours) Vital Signs Temp Pulse Pulse Resp BP BP Pulse Ox 07/15/19 05:00 135 H 23 99/77 L 98 07/15/19 04:32 159 H 24 108/70 93 07/15/19 04:00 150 H 26 H 116/70 95 07/15/19 03:00 27 H 92/78 L 93 07/15/19 02:16 98 H 22 96 07/15/19 02:01 101 H 20 106/49 L 94 07/15/19 01:34 97 H 25 H 174/137 H 95 07/15/19 01:00 97 H 26 H 94 07/15/19 00:00 37.0 C 95 H 20 115/54 L 93 07/14/19 23:00 95 H 25 H 116/60 94 07/14/19 22:41 131 H 28 H 96 07/14/19 22:00 91 H 28 H 98/59 L 95 07/14/19 21:45 99 H 20 95 07/14/19 21:00 96 H 20 102/51 L 96 07/14/19 20:50 100 H 07/14/19 20:00 36.9 C 85 22 109/57 L 98 07/14/19 19:22 84 22 99 07/14/19 19:00 89 18 94/48 L 99 07/14/19 18:30 98 H 82/40 L 96 07/14/19 17:53 96/48 L 07/14/19 17:39 23 96 PG Care Time/CCT Total # of Minutes Spent Total Time Spent with Patient: Total time spent is greater than 50% in coordination of care (as documented) at patient's floor/unit and/or counseling patient:
[2019-07-15] MEDS: LEVOTHYROXINE SODIUM 50 MCG TABLET PO SCH (06:13)
[2019-07-15 06:17] LABS: Phosphorus 3.2 mg/dl (2.5-4.9)
--- NOTE | 2019-07-15 06:31 | Ultrasound Report ---
US venous doppler LE CLINICAL HISTORY: 88 years-old Female presenting with lower extremity swelling/pain - on reduced dose Xarelto. TECHNIQUE: Real-time grayscale and color and spectral Doppler ultrasound imaging of the veins of the bilateral lower extremities was performed. Compression and augmentation were also utilized. COMPARISON: 01/17/2019 and 11/23/2018. FINDINGS: RIGHT: Common femoral vein: Patent. Greater saphenous vein (superficial): Patent. Deep femoral vein: Patent. Femoral vein: Patent. Popliteal vein: Patent. Calf veins: Limited visualization. Grossly patent. LEFT: Common femoral vein: Patent. Greater saphenous vein (superficial): Patent. Deep femoral vein: Patent. Femoral vein: Patent. Popliteal vein: Patent. Calf veins: Limited visualization. Grossly patent. Other: None. IMPRESSION: No evidence of deep venous thrombosis. Electronically signed by: Kingsley Olsen M.D. 07/15/2019 6:30 AM
[2019-07-15] MEDS ORDERED: LEVOFLOXACIN/D5W 750 MG/150 ML BAG IV SCH (07:00)
[2019-07-15] MEDS: ALBUT/IPRATROP 3MG/0.5MG NEB 3 ML VIAL NEB SCH ×4 (07:04→19:01)
--- NOTE | 2019-07-15 07:22 | Critical Care Progress Note ---
Date of Service July 15, 2019 Assessment & Plan (1) Pneumonia: Reason Critically Ill: 88-year-old female admitted with acute hypoxic respiratory failure with concern for sepsis versus heart failure, complicated with narrow complex tachycardia requiring adenosine and amiodarone drip. PLAN: Neuro: CAM ICU: Negative Cardiovascular Narrow complex tachycardia with rate in 140s to 180s, was treated with adenosine and underlying A. fib, now remains on amiodarone drip with rate controlled -We will continue amiodarone for now -Adding beta-chad -Maximize electrolytes -Started on heparin drip -Monitor on telemetry Acute on chronic diastolic HFTTE pending, BNP 2300 on admission, troponin negative -Chest x-ray showed bilateral opacities -spot diuresis if indicated, considering MICHI, currently holding due to improved pulmonary status -Adding beta-chad Resp: Acute hypoxic respiratory failurewas requiring 12 L OFM, now weaned to 4 L nasal cannula which is patient's baseline -Secondary to COPD exacerbation versus CHF exacerbation -Stopping Solu-Medrol at this time considering neutrophilia, no wheezing on exam -We will continue DuoNeb -Patient reportedly noncompliant with CPAP at home, will continue CPAP at bedtime 10 cm H2O -Holding diuretics at this time -Antibiotics narrowed to ertapenem considering multidrug resistant organisms on previous admission -Follow-up sputum culture Fluids/Renal: Acute kidney injurycreatinine 1.66, stabilized, continue to trend -Diuresis only with indicated -Holding NSAIDs, avoid nephrotoxins -Scaling back opiates given renal insufficiency -Holding gabapentin Lactic acidosis: Improving, continue to trend GUUA positive and urine culture positive for gram-negative bacilli -Patient has history of multidrug-resistant E. coli, pseudomonal infection -Sensitivities were resistant to cefepime and Levaquin, narrowed to ertapenem -We will follow-up final read on culture ID: Possible septic shock secondary to pneumonia versus UTI -Urine culture as above -Blood cultures pending, sputum culture pending, influenza negative -Consulting ID considering current antibiotic course along with patient history GI/Nutrition: Advancing diet as tolerated Heme: Leukemoid reaction -Hematology consult placed by primary -Rule out myelodysplastic syndrome versus leukemia History of PE -Unable to obtain CT due to renal insufficiency, and VQ scan would be nondiagnostic -Started on heparin drip for empiric treatment DVT prophylaxis: Heparin infusion Endocrine: ICU hyperglycemia protocol Hypothyroidismcontinue Synthroid Vascular access: Peripheral IVs Code Status: Confirmed DNR and DNI in event of respiratory insufficiency I have personally spent 40 minutes of critical care time in the direct management of this patient. This is a life/limb threatening event. This includes time spent evaluating patient, direct bedside care, chart review, placing orders, interpretation of diagnostic studies, discussion with consultants, patient, and family members, as well as other required patient management activities. This time is exclusive of all separately billable procedures, and teaching time and separate from and in addition to any other critical care service time. Thank you for allowing us to participate in the care of this patient. Please refer to my attending physician's documentation for any further recommendations. (2) History of pulmonary embolism: (3) Diastolic CHF: (4) Neutrophilic leukemoid reaction: (5) Acute on chronic respiratory failure: (6) Acute hypotension: (7) Sepsis associated hypotension: (8) Polypharmacy: Supervising Physician Co-Signing Physician Notes Patient was seen and examined with the nurse practitioner. EMR was reviewed. I independently conducted the physical exam and reviewed the electronic medical record and interviewed the patient at the bedside. 88-year-old female with complicated past medical history as delineated below admitted with acute on chronic hypoxemic respiratory failure. There was initial concern about sepsis however the patient has not required IV pressors. Her ICU course has been complicated by atrial fibrillation with rapid ventricular response which has converted with the addition of amiodarone. She has been weaned off of positive airway pressure. She does have a history of sleep di sordered breathing and uses CPAP nightly. Her x-ray does reveal a right lower lung field infiltrate concerning for an infectious process. She has a history of resistant organisms in the. She was currently on Zosyn, Levaquin, and vancomycin. The extended spectrum resistant E. coli in the past was resistant to fluoroquinolones as well as Zosyn. Recommendations: 1. Transition amiodarone to oral. We will also add low-dose Coreg to try and improve blood pressure control given her diastolic dysfunction. Continue diuretics. Will need to follow kidney function closely 2. Transition to ertapenem for better coverage of potential urinary pathogens. Follow-up with urinary source. This should be adequate coverage for her pneumonia as well. She should have a follow-up chest x-ray performed in 2 to 4 weeks to document resolution of the pneumonia. 3. I suspect the patient has a history of sleep disordered breathing as she relates using a CPAP machine at home. I encouraged her to remain compliant with her machine nightly as well as as needed during the day. 4. Lactic acidosis: Resolving. The patient certainly could have had a mild degree of sepsis which appears to be improving with resuscitation and appropriate antibiotics. Anticipate the patient should be able to return to the floor under the care of the hospitalist later today or tomorrow depending on clinical course. Subjective 88-year-old female admitted for hypoxic respiratory failure and concerns for sepsis to developed narrow complex tachycardia requiring adenosine and now on amiodarone drip. This morning she claims that her breathing has significantly improved and she is now only requiring 4 L nasal cannula which is her baseline. She denies dizziness, confusion, headache, nausea or vomiting, increased work of breathing or dyspnea, chest pain, palpitations, abdominal pain, or diarrhea. We are narrowing antibiotics to ertapenem as patient has history of multidrug- resistant organisms. Patient is currently hemodynamic is stable. We will continue to observe in ICU but may be able to downgrade this afternoon to telemetry status if patient remains stable. Review of Systems Review of Systems: All systems reviewed & are unremarkable except as noted in HPI & below Physical Exam Constitutional: cooperative and comfortable Eyes: PERRL, conjunctivae normal, anicteric sclerae ENMT: external ear and nose normal, oropharynx normal Neck: trachea midline, no thyromegaly Respiratory: + labored breathing and + tachypneic Auscultation: + rhonchi; no wheezes Rhonchi auscultated bilaterally in all lobes Cardiovascular: Rate/Rhythm: + irregularly irregular Heart Sounds: normal S1 and normal S2 Vessels: no JVD Gastrointestinal (Abdomen): normal bowel sounds, soft, nontender, no hepatosplenomegaly Neurologic: PERRL, EOMI, accommodation nl, no face palsy, no dysarthria Psychiatric: A+Ox3, euthymic affect Results & Data Vital Signs (Past 12 Hours) Vital Signs Temp Pulse Pulse Resp BP Pulse Ox 07/15/19 07:13 90 90 24 99 07/15/19 05:34 141 H 23 98 07/15/19 05:00 135 H 23 99/77 L 98 07/15/19 04:32 159 H 24 108/70 93 07/15/19 04:00 150 H 26 H 116/70 95 09/02/19 03:00 27 H 92/78 L 93 07/15/19 02:16 98 H 22 96 07/15/19 02:01 101 H 20 106/49 L 94 07/15/19 01:34 97 H 25 H 174/137 H 95 07/15/19 01:00 97 H 26 H 94 07/15/19 00:00 37.0 C 95 H 20 115/54 L 93 07/14/19 23:00 95 H 25 H 116/60 94 07/14/19 22:41 131 H 28 H 96 07/14/19 22:00 91 H 28 H 98/59 L 95 07/14/19 21:45 99 H 20 95 07/14/19 21:00 96 H 20 102/51 L 96 07/14/19 20:50 100 H 07/14/19 20:00 36.9 C 85 22 109/57 L 98 07/14/19 19:22 84 22 99 Laboratory Results Laboratory Results - last 24 hr 07/14/19 07/14/19 07/14/19 12:07 12:07 12:07 WBC 80.50 H* RBC 2.84 L Hgb 10.0 L POC Hgb Hct 30.5 L POC Hct MCV 107.4 H MCH 35.2 H MCHC 32.8 RDW Std Deviation 68.5 H RDW Coeff of Marta 17.4 H Plt Count 257 MPV 12.2 H Immature Gran % (Auto) 4.8 Neut % (Auto) 86.4 Lymph % (Auto) 3.2 [place] % (Auto) 5.5 Eos % (Auto) 0.0 Baso % (Auto) 0.1 Immature Gran # (Auto) 3.84 H Neut # (Auto) 69.53 H Lymph # (Auto) 2.58 [place] # (Auto) 4.45 H Eos # (Auto) 0.01 Baso # (Auto) 0.09 Neutrophils % (Manual) Lymphocytes % (Manual) Monocytes % (Manual) Metamyelocytes % (Man) Myelocytes % (Man) Neutrophils # (Manual) Total Absolute Neuts Lymphocytes # (Manual) Total Abs Lymphocytes Monocytes # (Manual) Metamyelocytes # (Man) Myelocytes # (Manual) Platelet Estimate Normal Peripher Smr Path Cons Pending PT 11.6 INR 1.1 APTT 25.1 PTT Ratio 0.9 D-Dimer ABG pH ABG pCO2 ABG pO2 ABG HCO3 ABG O2 Saturation ABG Base Excess Thai Test Barometric Pressure Oxygen Given POC Sodium Sodium 143 POC Potassium Potassium POC Chloride Chloride 106 Carbon Dioxide 33 H POC Total CO2 Anion Gap 4.0 POC Anion Gap POC BUN BUN 32 H Creatinine 1.62 H POC Creatinine Est Cr Clr Drug Dosing 35.2 Est GFR ( Amer) 32.7 Est GFR (Non-Af Amer) 28.2 BUN/Creatinine Ratio 19.9 Glucose 104 H POC Glucose (other) POC Lactic Acid Binu Lactate Calcium 8.8 POC Ioniz Calcium Maurilio Phosphorus Magnesium Total Bilirubin 1.0 AST ALT 33 Alkaline Phosphatase 95 Total Creatine Kinase CK-MB (CK-2) CK/CKMB % Calc Troponin I NT-Pro-B Natriuret Pep Total Protein 5.7 L Albumin 2.6 L Globulin 3.1 Albumin/Globulin Ratio 0.8 L Procalcitonin Urine Color Urine Appearance Urine pH Ur Specific [place] Urine Protein Urine Glucose (UA) Urine Ketones Urine Blood Urine Nitrite Urine Bilirubin Urine Urobilinogen Ur Leukocyte Esterase Urine WBC (Auto) Urine RBC (Auto) U Hyaline Cast (Auto) U Epithel Cells (Auto) Urine Bacteria (Auto) Nasal Screen MRSA (PCR) Influenza Type A (PCR) Influenza Type B (PCR) 07/14/19 07/14/19 07/14/19 12:07 12:07 12:15 WBC RBC Hgb POC Hgb Hct POC Hct MCV MCH MCHC RDW Std Deviation RDW Coeff of Marta Plt Count MPV Immature Gran % (Auto) Neut % (Auto) Lymph % (Auto) [place] % (Auto) Eos % (Auto) Baso % (Auto) Immature Gran # (Auto) Neut # (Auto) Lymph # (Auto) [place] # (Auto) Eos # (Auto) Baso # (Auto) Neutrophils % (Manual) Lymphocytes % (Manual) Monocytes % (Manual) Metamyelocytes % (Man) Myelocytes % (Man) Neutrophils # (Manual) Total Absolute Neuts Lymphocytes # (Manual) Total Abs Lymphocytes Monocytes # (Manual) Metamyelocytes # (Man) Myelocytes # (Manual) Platelet Estimate Peripher Smr Path Cons PT INR APTT PTT Ratio D-Dimer 1470 H* ABG pH ABG pCO2 ABG pO2 ABG HCO3 ABG O2 Saturation ABG Base Excess Thai Test Barometric Pressure Oxygen Given POC Sodium Sodium POC Potassium Potassium POC Chloride Chloride Carbon Dioxide POC Total CO2 Anion Gap POC Anion Gap POC BUN BUN Creatinine POC Creatinine Est Cr Clr Drug Dosing Est GFR ( Amer) Est GFR (Non-Af Amer) BUN/Creatinine Ratio Glucose POC Glucose (other) POC Lactic Acid Binu 3.16 H Lactate Calcium POC Ioniz Calcium Maurilio Phosphorus Magnesium Total Bilirubin AST ALT Alkaline Phosphatase Total Creatine Kinase CK-MB (CK-2) < 1.0 CK/CKMB % Calc TNP Troponin I < 0.015 NT-Pro-B Natriuret Pep Total Protein Albumin Globulin Albumin/Globulin Ratio Procalcitonin Urine Color Urine Appearance Urine pH Ur Specific [place] Urine Protein Urine Glucose (UA) Urine Ketones Urine Blood Urine Nitrite Urine Bilirubin Urine Urobilinogen Ur Leukocyte Esterase Urine WBC (Auto) Urine RBC (Auto) U Hyaline Cast (Auto) U Epithel Cells (Auto) Urine Bacteria (Auto) Nasal Screen MRSA (PCR) Influenza Type A (PCR) Influenza Type B (PCR) 07/14/19 07/14/19 07/14/19 12:22 12:30 15:07 WBC RBC Hgb POC Hgb 10.9 L Hct POC Hct 32 L MCV MCH MCHC RDW Std Deviation RDW Coeff of Marta Plt Count MPV Immature Gran % (Auto) Neut % (Auto) Lymph % (Auto) [place] % (Auto) Eos % (Auto) Baso % (Auto) Immature Gran # (Auto) Neut # (Auto) Lymph # (Auto) [place] # (Auto) Eos # (Auto) Baso # (Auto) Neutrophils % (Manual) Lymphocytes % (Manual) Monocytes % (Manual) Metamyelocytes % (Man) Myelocytes % (Man) Neutrophils # (Manual) Total Absolute Neuts Lymphocytes # (Manual) Total Abs Lymphocytes Monocytes # (Manual) Metamyelocytes # (Man) Myelocytes # (Manual) Platelet Estimate Peripher Smr Path Cons PT INR APTT PTT Ratio D-Dimer ABG pH ABG pCO2 ABG pO2 ABG HCO3 ABG O2 Saturation ABG Base Excess Thai Test Barometric Pressure Oxygen Given POC Sodium 140 Sodium POC Potassium 4.0 Potassium 3.8 POC Chloride 101 Chloride Carbon Dioxide POC Total CO2 30 Anion Gap POC Anion Gap 14.0 L POC BUN 35 H BUN Creatinine POC Creatinine 1.6 H Est Cr Clr Drug Dosing Est GFR ( Amer) Est GFR (Non-Af Amer) BUN/Creatinine Ratio Glucose POC Glucose (other) 109 H POC Lactic Acid Binu Lactate Calcium POC Ioniz Calcium Maurilio 1.20 Phosphorus Magnesium Total Bilirubin AST 24 ALT Alkaline Phosphatase Total Creatine Kinase 15 L CK-MB (CK-2) CK/CKMB % Calc Troponin I NT-Pro-B Natriuret Pep Total Protein Albumin Globulin Albumin/Globulin Ratio Procalcitonin Urine Color Yellow Urine Appearance Cloudy A Urine pH 7.0 Ur Specific [place] 1.012 Urine Protein Negative Urine Glucose (UA) Negative Urine Ketones Negative Urine Blood Trace H Urine Nitrite Positive A Urine Bilirubin Negative Urine Urobilinogen Negative Ur Leukocyte Esterase 2+ H Urine WBC (Auto) >30 H Urine RBC (Auto) 0-4 U Hyaline Cast (Auto) 5-10 H U Epithel Cells (Auto) 0-5 Urine Bacteria (Auto) 3+ H Nasal Screen MRSA (PCR) Influenza Type A (PCR) Influenza Type B (PCR) 07/14/19 07/14/19 07/14/19 15:07 15:07 15:10 WBC RBC Hgb POC Hgb Hct POC Hct MCV MCH MCHC RDW Std Deviation RDW Coeff of Marta Plt Count MPV Immature Gran % (Auto) Neut % (Auto) Lymph % (Auto) [place] % (Auto) Eos % (Auto) Baso % (Auto) Immature Gran # (Auto) Neut # (Auto) Lymph # (Auto) [place] # (Auto) Eos # (Auto) Baso # (Auto) Neutrophils % (Manual) Lymphocytes % (Manual) Monocytes % (Manual) Metamyelocytes % (Man) Myelocytes % (Man) Neutrophils # (Manual) Total Absolute Neuts Lymphocytes # (Manual) Total Abs Lymphocytes Monocytes # (Manual) Metamyelocytes # (Man) Myelocytes # (Manual) Platelet Estimate Peripher Smr Path Cons PT INR APTT PTT Ratio D-Dimer ABG pH ABG pCO2 ABG pO2 ABG HCO3 ABG O2 Saturation ABG Base Excess Thai Test Barometric Pressure Oxygen Given POC Sodium Sodium POC Potassium Potassium POC Chloride Chloride Carbon Dioxide POC Total CO2 Anion Gap POC Anion Gap POC BUN BUN Creatinine POC Creatinine Est Cr Clr Drug Dosing Est GFR ( Amer) Est GFR (Non-Af Amer) BUN/Creatinine Ratio Glucose POC Glucose (other) POC Lactic Acid Binu Lactate 3.8 H* Calcium POC Ioniz Calcium Maurilio Phosphorus Magnesium Total Bilirubin AST ALT Alkaline Phosphatase Total Creatine Kinase CK-MB (CK-2) CK/CKMB % Calc Troponin I NT-Pro-B Natriuret Pep Total Protein Albumin Globulin Albumin/Globulin Ratio Procalcitonin 32.92 H Urine Color Urine Appearance Urine pH Ur Specific [place] Urine Protein Urine Glucose (UA) Urine Ketones Urine Blood Urine Nitrite Urine Bilirubin Urine Urobilinogen Ur Leukocyte Esterase Urine WBC (Auto) Urine RBC (Auto) U Hyaline Cast (Auto) U Epithel Cells (Auto) Urine Bacteria (Auto) Nasal Screen MRSA (PCR) Influenza Type A (PCR) Neg for Influ A Influenza Type B (PCR) Neg for Influ B 07/14/19 07/14/19 07/14/19 17:49 17:49 17:49 WBC 73.02 H* RBC 2.41 L Hgb 8.3 L POC Hgb Hct 25.4 L POC Hct MCV 105.4 H MCH 34.4 H MCHC 32.7 RDW Std Deviation 68.0 H RDW Coeff of Marta 17.7 H Plt Count 243 MPV 11.8 H Immature Gran % (Auto) Neut % (Auto) Lymph % (Auto) [place] % (Auto) Eos % (Auto) Baso % (Auto) Immature Gran # (Auto) Neut # (Auto) Lymph # (Auto) [place] # (Auto) Eos # (Auto) Baso # (Auto) Neutrophils % (Manual) 95.2 Lymphocytes % (Manual) 1.2 Monocytes % (Manual) 2.4 Metamyelocytes % (Man) 0.4 Myelocytes % (Man) 0.8 Neutrophils # (Manual) 69.52 H Total Absolute Neuts 69.52 H Lymphocytes # (Manual) 0.88 L Total Abs Lymphocytes 0.88 L Monocytes # (Manual) 1.75 H Metamyelocytes # (Man) 0.29 H Myelocytes # (Manual) 0.58 H Platelet Estimate Normal Peripher Smr Path Cons PT INR APTT PTT Ratio D-Dimer ABG pH ABG pCO2 ABG pO2 ABG HCO3 ABG O2 Saturation ABG Base Excess Thai Test Barometric Pressure Oxygen Given POC Sodium Sodium 142 POC Potassium Potassium 4.1 POC Chloride Chloride 107 Carbon Dioxide 30 POC Total CO2 Anion Gap 6.0 POC Anion Gap POC BUN BUN 40 H Creatinine 1.64 H POC Creatinine Est Cr Clr Drug Dosing 34.8 Est GFR ( Amer) 32.3 Est GFR (Non-Af Amer) 27.8 BUN/Creatinine Ratio 24.6 H Glucose 139 H POC Glucose (other) POC Lactic Acid Binu Lactate 2.4 H* Calcium 8.5 POC Ioniz Calcium Maurilio Phosphorus Magnesium Total Bilirubin 0.9 AST 25 ALT 25 Alkaline Phosphatase 79 Total Creatine Kinase CK-MB (CK-2) CK/CKMB % Calc Troponin I NT-Pro-B Natriuret Pep 2786 H Total Protein 5.0 L Albumin 2.2 L Globulin 2.8 Albumin/Globulin Ratio 0.8 L Procalcitonin Urine Color Urine Appearance Urine pH Ur Specific [place] Urine Protein Urine Glucose (UA) Urine Ketones Urine Blood Urine Nitrite Urine Bilirubin Urine Urobilinogen Ur Leukocyte Esterase Urine WBC (Auto) Urine RBC (Auto) U Hyaline Cast (Auto) U Epithel Cells (Auto) Urine Bacteria (Auto) Nasal Screen MRSA (PCR) Influenza Type A (PCR) Influenza Type B (PCR) 07/14/19 07/14/19 07/15/19 17:49 17:52 02:16 WBC 65.51 H* RBC 2.51 L Hgb 8.7 L POC Hgb Hct 26.3 L POC Hct MCV 104.8 H MCH 34.7 H MCHC 33.1 RDW Std Deviation 68.4 H RDW Coeff of Marta 17.9 H Plt Count 281 MPV 12.1 H Immature Gran % (Auto) Neut % (Auto) Lymph % (Auto) [place] % (Auto) Eos % (Auto) Baso % (Auto) Immature Gran # (Auto) Neut # (Auto) Lymph # (Auto) [place] # (Auto) Eos # (Auto) Baso # (Auto) Neutrophils % (Manual) Lymphocytes % (Manual) Monocytes % (Manual) Metamyelocytes % (Man) Myelocytes % (Man) Neutrophils # (Manual) Total Absolute Neuts Lymphocytes # (Manual) Total Abs Lymphocytes Monocytes # (Manual) Metamyelocytes # (Man) Myelocytes # (Manual) Platelet Estimate Peripher Smr Path Cons PT INR APTT PTT Ratio D-Dimer ABG pH 7.44 ABG pCO2 42 ABG pO2 98 H ABG HCO3 28 H ABG O2 Saturation 96.8 H ABG Base Excess 3.1 H Thai Test Pos Barometric Pressure 737.0 Oxygen Given 40% POC Sodium Sodium POC Potassium Potassium POC Chloride Chloride Carbon Dioxide POC Total CO2 Anion Gap POC Anion Gap POC BUN BUN Creatinine POC Creatinine Est Cr Clr Drug Dosing Est GFR ( Amer) Est GFR (Non-Af Amer) BUN/Creatinine Ratio Glucose POC Glucose (other) POC Lactic Acid Binu Lactate Calcium POC Ioniz Calcium [place] Phosphorus Magnesium Total Bilirubin AST ALT Alkaline Phosphatase Total Creatine Kinase CK-MB (CK-2) CK/CKMB % Calc Troponin I NT-Pro-B Natriuret Pep Total Protein Albumin Globulin Albumin/Globulin Ratio Procalcitonin Urine Color Urine Appearance Urine pH Ur Specific [place] Urine Protein Urine Glucose (UA) Urine Ketones Urine Blood Urine Nitrite Urine Bilirubin Urine Urobilinogen Ur Leukocyte Esterase Urine WBC (Auto) Urine RBC (Auto) U Hyaline Cast (Auto) U Epithel Cells (Auto) Urine Bacteria (Auto) Nasal Screen MRSA (PCR) Positive A Influenza Type A (PCR) Influenza Type B (PCR) 07/15/19 07/15/19 07/15/19 02:16 02:16 02:16 WBC RBC Hgb POC Hgb Hct POC Hct MCV MCH MCHC RDW Std Deviation RDW Coeff of Marta Plt Count MPV Immature Gran % (Auto) Neut % (Auto) Lymph % (Auto) [place] % (Auto) Eos % (Auto) Baso % (Auto) Immature Gran # (Auto) Neut # (Auto) Lymph # (Auto) [place] # (Auto) Eos # (Auto) Baso # (Auto) Neutrophils % (Manual) Lymphocytes % (Manual) Monocytes % (Manual) Metamyelocytes % (Man) Myelocytes % (Man) Neutrophils # (Manual) Total Absolute Neuts Lymphocytes # (Manual) Total Abs Lymphocytes Monocytes # (Manual) Metamyelocytes # (Man) Myelocytes # (Manual) Platelet Estimate Peripher Smr Path Cons PT INR APTT 60.4 H* PTT Ratio 2.2 D-Dimer ABG pH ABG pCO2 ABG pO2 ABG HCO3 ABG O2 Saturation ABG Base Excess Thai Test Barometric Pressure Oxygen Given POC Sodium Sodium 142 POC Potassium Potassium 4.6 POC Chloride Chloride 106 Carbon Dioxide 29 POC Total CO2 Anion Gap 7.0 POC Anion Gap POC BUN BUN 43 H Creatinine 1.66 H POC Creatinine Est Cr Clr Drug Dosing 34.4 Est GFR ( Amer) 31.8 Est GFR (Non-Af Amer) 27.4 BUN/Creatinine Ratio 26.2 H Glucose 139 H POC Glucose (other) POC Lactic Acid Binu Lactate Calcium 8.4 L POC Ioniz Calcium Maurilio Phosphorus 3.2 Magnesium 2.0 Total Bilirubin AST ALT Alkaline Phosphatase Total Creatine Kinase CK-MB (CK-2) CK/CKMB % Calc Troponin I NT-Pro-B Natriuret Pep Total Protein Albumin Globulin Albumin/Globulin Ratio Procalcitonin Urine Color Urine Appearance Urine pH Ur Specific [place] Urine Protein Urine Glucose (UA) Urine Ketones Urine Blood Urine Nitrite Urine Bilirubin Urine Urobilinogen Ur Leukocyte Esterase Urine WBC (Auto) Urine RBC (Auto) U Hyaline Cast (Auto) U Epithel Cells (Auto) Urine Bacteria (Auto) Nasal Screen MRSA (PCR) Influenza Type A (PCR) Influenza Type B (PCR) Medications Administered Home Medications Prilosec OTC 20 mg PO QAM 09/07/18 [History Confirmed 07/14/19] Spiriva with HandiHaler 1 cap INHALATION QAM 09/07/18 [History Confirmed 07/14/19] allopurinol 100 mg PO QAM 09/07/18 [History Confirmed 07/14/19] duloxetine 30 mg PO HS 09/07/18 [History Confirmed 07/14/19] fluticasone propion-salmeterol [Advair Diskus] 1 inh INHALATION BID 09/07/18 [History Confirmed 07/14/19] gabapentin 600 mg PO HS 09/07/18 [History Confirmed 07/14/19] losartan 50 mg PO QAM 09/07/18 [History Confirmed 07/14/19] montelukast [Singulair] 10 mg PO PM 09/07/18 [History Confirmed 07/14/19] albuterol sulfate 2.5 mg INH Q6H #90 ml 09/11/18 [Rx Confirmed 07/14/19] Restasis MultiDose 1 drp OPHTHALMIC (EYE) BID 11/06/18 [History Confirmed 07/14/19] acetaminophen 650 mg PO Q6H PRN MDD 3G 11/06/18 [History Confirmed 07/14/19] albuterol sulfate [Ventolin HFA] 2 puff INHALATION Q4H PRN 11/06/18 [History Confirmed 07/14/19] azelastine 2 spray INTRANASAL QAM 11/06/18 [History Confirmed 07/14/19] fluticasone propionate [Flonase Allergy Relief] 2 spray INTRANASAL DAILY 11/06/18 [History Confirmed 07/14/19] multivitamin 1 tab PO QAM 11/06/18 [History Confirmed 07/14/19] Xarelto 15 mg PO PM 02/02/19 [History Confirmed 07/14/19] acetaminophen [Tylenol Extra Strength] 1,000 mg PO HS 02/02/19 [History Confirmed 07/14/19] diclofenac sodium [Voltaren] 2 g TOPICAL BID 02/02/19 [History Confirmed 07/14/19] docusate sodium 100 mg PO BID 02/02/19 [History Confirmed 07/14/19] ropinirole [Requip] 1 mg PO TID 02/02/19 [History Confirmed 07/14/19] sodium chloride [Brown Nasal] 1 spray INTRANASAL UD PRN 02/02/19 [History Confirmed 07/14/19] fentanyl 1 patch TRANSDERMAL Q72H #1 ea 02/08/19 [Rx Confirmed 07/14/19] benzonatate [Tessalon Perles] 100 mg PO TID 07/14/19 [History Confirmed 07/14/19] budesonide 0.5 mg NEB Q12H 07/14/19 [History Confirmed 07/14/19] ceftriaxone 1 g IM Q24H 07/14/19 [History Confirmed 07/14/19] furosemide [Lasix] 20 mg PO QAM 07/14/19 [History Confirmed 07/14/19] gabapentin 200 mg PO BID 07/14/19 [History Confirmed 07/14/19] levothyroxine 50 mcg PO QAM 07/14/19 [History Confirmed 07/14/19] lidocaine HCl 2.1 ml IM Q24H 07/14/19 [History Confirmed 07/14/19] oxycodone 5 mg PO QAM PRN 07/14/19 [History Confirmed 07/14/19] oxycodone 10 mg PO HS PRN 07/14/19 [History Confirmed 07/14/19] polyethylene glycol 3350 [Miralax] 17 g PO PM 07/14/19 [History Confirmed 07/14/19] Active Medications Acetaminophen (Tylenol) 1,000 mg PO HS ALIN Stop: 08/13/19 20:59 Last Admin: 07/14/19 22:19 Dose: 1,000 mg Documented by: Acetaminophen (Tylenol) 650 mg PO Q4H PRN PRN Reason: Pain or Fever Stop: 08/13/19 15:55 Al Hydrox/Mg Hydrox/Simethicone (Maalox) 15 ml PO Q4H PRN PRN Reason: Dyspepsia Stop: 08/13/19 15:55 Albuterol (Duoneb) 3 ml NEB QIDR [facility] Stop: 08/13/19 16:59 Last Admin: 07/15/19 10:59 Dose: 3 ml Documented by: Carvedilol (Coreg) 3.125 mg PO BID [facility] Stop: 08/14/19 20:59 Diclofenac Sodium (Voltaren 1% Top) 2 appln EXT BID [facility] Stop: 08/13/19 20:59 Last Admin: 07/15/19 08:42 Dose: 2 appln Documented by: Docusate Sodium (Colace) 100 mg PO BID [facility] Stop: 08/13/19 20:59 Last Admin: 07/15/19 08:42 Dose: 100 mg Documented by: Duloxetine HCl (Cymbalta) 30 mg PO [facility] Stop: 08/13/19 20:59 Last Admin: 07/14/19 22:19 Dose: 30 mg Documented by: Fentanyl (Duragesic) 25 mcg TD Q72H [facility] Stop: 07/30/19 08:59 Fentanyl (Duragesic) 12 mcg TD Q3D@0900 [facility] Stop: 07/30/19 08:59 Fluticasone Propionate (Flonase) 2 sprays TEOFILO DAILY [facility] Stop: 08/14/19 08:59 Last Admin: 07/15/19 08:44 Dose: 2 sprays Documented by: Gabapentin (Neurontin) 200 mg PO BID@0830,1630 [facility] Stop: 08/13/19 16:59 Last Admin: 07/14/19 17:27 Dose: Not Given Documented by: Gabapentin (Neurontin) 600 mg PO [facility] Stop: 08/13/19 20:59 Last Admin: 07/14/19 22:19 Dose: 600 mg Documented by: Heparin Sodium/Dextrose (Heparin Sodium/Dextrose) 25,000 units in 500 mls @ 33 mls/hr IV .[id number] [facility]; Protocol Stop: 08/13/19 19:59 Last Admin: 07/15/19 11:17 Dose: 1,650 units/hr, 33 mls/hr Documented by: Amiodarone HCl/Dextrose (Nexterone / D5w) 360 mg in 200 mls @ 16.667 mls/hr IV .Q12H [facility] Stop: 08/14/19 10:59 Last Admin: 07/15/19 10:37 Dose: 0.5 mg/min, 16.7 mls/hr Documented by: Ertapenem 1,000 mg/ Sodium (Chloride) 60 mls @ 100 mls/hr IV Q24H [facility] Stop: 07/25/19 10:59 Last Admin: 07/15/19 11:15 Dose: 100 mls/hr Documented by: Levothyroxine Sodium (Synthroid) 50 mcg PO DAILYBB [facility] Stop: 08/14/19 06:29 Last Admin: 07/15/19 06:13 Dose: Not Given Documented by: Magnesium Hydroxide (Milk Of Magnesia) 30 ml PO Q12H PRN PRN Reason: Constipation Stop: 08/13/19 15:55 Miscellaneous (Order Awaiting Action) 1 ea N/A QS [facility] Stop: 08/14/19 00:00 Last Admin: 07/15/19 08:07 Dose: Not Given Documented by: Miscellaneous (Order Awaiting Action) 1 ea N/A QS [facility] Stop: 08/14/19 00:00 Last Admin: 07/15/19 08:07 Dose: Not Given Documented by: Miscellaneous (Fentanyl Patch Remove & Waste) 1 ea N/A Q72H [facility] Stop: 07/16/19 09:00 Miscellaneous (Fentanyl Patch Check Placement) 1 ea N/A QS [facility] Stop: 07/16/19 08:01 Last Admin: 07/15/19 08:06 Dose: 1 ea Documented by: Miscellaneous (Fentanyl Patch Remove & Waste) 1 ea N/A Q72H [facility] Stop: 08/18/19 08:58 Miscellaneous (Fentanyl Patch Check Placement) 1 ea N/A QS [facility] Stop: 08/15/19 15:59 Miscellaneous (Fentanyl Patch Remove & Waste) 1 ea N/A Q72H [facility] Stop: 08/18/19 08:58 Miscellaneous (Fentanyl Patch Check Placement) 1 ea N/A QS [facility] Stop: 08/15/19 15:59 Montelukast Sodium (Singulair) 10 mg PO PM [facility] Stop: 08/13/19 20:59 Last Admin: 07/14/19 22:19 Dose: 10 mg Documented by: Multivitamins (Multivitamin Tab) 1 tab PO QAM [facility] Stop: 08/14/19 08:59 Last Admin: 07/15/19 08:43 Dose: 1 tab Documented by: Oxycodone HCl (Roxicodone Immediate Rel) 5 mg PO QAM PRN PRN Reason: Moderate Stop: 07/28/19 15:55 Polyethylene Glycol (Miralax Powder Packet) 17 gm PO DAILY PRN PRN Reason: Constipation Stop: 08/13/19 15:55 Ropinirole HCl (Requip) 1 mg PO TID [facility] Stop: 08/13/19 20:59 Last Admin: 07/14/19 16:16 Dose: 1 mg Documented by: Fluticasone/Salmeterol (Advair Diskus 500/50) 1 puffs INH BID [facility] Stop: 08/13/19 20:59 Last Admin: 07/14/19 21:41 Dose: Not Given Documented by: Tiotropium [place] (Spiriva) 1 puffs INH QAM [facility] Stop: 08/14/19 08:59 PG Care Time/CCT Total # of Minutes Spent Total Time Spent with Patient: Total time spent is greater than 50% in coordination of care (as documented) at patient's floor/unit and/or counseling patient: Critical Care Time: Yes Total Critical Care Time: 40 (1) Diastolic CHF Heart failure chronicity: acute on chronic Qualified Code(s): I50.33 - Acute on chronic diastolic (congestive) heart failure (2) Acute on chronic respiratory failure Respiratory failure complication: hypoxia Qualified Code(s): J96.21 - Acute and chronic respiratory failure with hypoxia (3) Pneumonia Laterality: unspecified laterality Lung location: unspecified part of lung Pneumonia type: due to unspecified organism Qualified Code(s): J18.9 - Pneumonia, unspecified organism
--- NOTE | 2019-07-15 07:29 | Emergency Department Note ---
Entered by Guera Waggoner acting as a scribe for History of Present Illness General Chief complaint: Respiratory Distress Time Seen by Provider: 07/14/19 11:41 Source: patient, family and EMS Mode of arrival: EMS History of Present Illness Onset (ago): hour(s) (this morning) Location: chest Pain Consistency: + other (episode) Quality: + other (respiratory distress) Relieved By: + other (CPAP) Associated symptoms: + fever/chills (fever) and + other (rales, hypoxia) The patient is a 88 year old female that is presenting to the Emergency Room with complaints of an episode of severe respiratory distress that started this morning. The patient is on BiPAP on exam and is difficult to arouse. Her veetrz-qd-ulv provided most of the history. Her cthezp-ic-xzu reports that the patient lives at [facility] and was found to be in distress this morning. Her bpiwze-vt-erb states that the patient was found to have a fever last night which has improved over night. Her esceqd-bg-znb notes that the patient was responsive prior to arrival at the ED. The rjfpda-aa-ogx states that the patient was able to recognize her and sign a form in the EMS. Her jeuywf-tk-cyu notes that the patient has a history of chronic lung issues and is on O2 all the time. EMS reports that the patient was found in respiratory distress and was placed on CPAP. EMS notes that the patient had audible rales which improved with CPAP. EMS states that the patients O2 saturation level was in the high 80s to low 90s. EMS notes that the patient was generally well last night besides a fever of 99.4F. EMS states that the patient received Rocephin as well as breathing treatments this morning prior to their arrival. HPI and ROS are limited secondary to patients BiPAP and limited responsive status. Home Medications Home Medications Medication Instructions Recorded Confirmed Type Prilosec OTC 20 mg PO QAM 09/07/18 07/14/19 History Spiriva with HandiHaler 1 cap INHALATION QAM 09/07/18 07/14/19 History allopurinol 100 mg PO QAM 09/07/18 07/14/19 History duloxetine 30 mg PO HS 09/07/18 07/14/19 History fluticasone propion-salmeterol 1 inh INHALATION BID 09/07/18 07/14/19 History [Advair Diskus] gabapentin 600 mg PO HS 09/07/18 07/14/19 History losartan 50 mg PO QAM 09/07/18 07/14/19 History montelukast [Singulair] 10 mg PO PM 09/07/18 07/14/19 History albuterol sulfate 2.5 mg INH Q6H #90 ml 09/11/18 07/14/19 Rx Restasis MultiDose 1 drp OPHTHALMIC (EYE) BID 11/06/18 07/14/19 History acetaminophen 650 mg PO Q6H PRN MDD 3G 11/06/18 07/14/19 History albuterol sulfate [Ventolin HFA] 2 puff INHALATION Q4H PRN 11/06/18 07/14/19 History azelastine 2 spray INTRANASAL QAM 11/06/18 07/14/19 History fluticasone propionate [Flonase 2 spray INTRANASAL DAILY 11/06/18 07/14/19 History Allergy Relief] multivitamin 1 tab PO QAM 11/06/18 07/14/19 History Xarelto 15 mg PO PM 02/02/19 07/14/19 History acetaminophen [Tylenol Extra 1,000 mg PO HS 02/02/19 07/14/19 History Strength] diclofenac sodium [Voltaren] 2 g TOPICAL BID 02/02/19 07/14/19 History docusate sodium 100 mg PO BID 02/02/19 07/14/19 History ropinirole [Requip] 1 mg PO TID 02/02/19 07/14/19 History sodium chloride [Troup Nasal] 1 spray INTRANASAL UD PRN 02/02/19 07/14/19 History fentanyl 1 patch TRANSDERMAL Q72H #1 ea 02/08/19 07/14/19 Rx benzonatate [Tessalon Perles] 100 mg PO TID 07/14/19 07/14/19 History budesonide 0.5 mg NEB Q12H 07/14/19 07/14/19 History ceftriaxone 1 g IM Q24H 07/14/19 07/14/19 History furosemide [Lasix] 20 mg PO QAM 07/14/19 07/14/19 History gabapentin 200 mg PO BID 07/14/19 07/14/19 History levothyroxine 50 mcg PO QAM 07/14/19 07/14/19 History lidocaine HCl 2.1 ml IM Q24H 07/14/19 07/14/19 History oxycodone 5 mg PO QAM PRN 07/14/19 07/14/19 History oxycodone 10 mg PO HS PRN 07/14/19 07/14/19 History polyethylene glycol 3350 [Miralax] 17 g PO PM 07/14/19 07/14/19 History Allergies Allergy/AdvReac Type Severity Reaction Status Date / Time enoxaparin Allergy Intermediate RASH, Verified 07/14/19 12:13 PRURITUS Past Med/Surg History Medical History Chronic back pain RLS (restless legs syndrome) Chronic diastolic CHF (congestive heart failure) (Chronic) COPD exacerbation (Acute) Hypoxia (Acute) Hypertension (Chronic) Asthma (Chronic) CKD (chronic kidney disease), stage III (Chronic) DCIS (ductal carcinoma in situ) (~2012) Deep vein blood clot of right lower extremity History of pulmonary embolism Lung cancer (~2010) Spasmodic dysphonia Surgical History H/O mastectomy History of back surgery Hx of appendectomy Hx of hernia repair Hx of hysterectomy Hx of resection of liver Hx of total knee replacement Family History Other Family history non-contributory Social History Preferred Language: Senegalese Communication Ability: Effective 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 Physical Exam Vital Signs Vital Signs - 24 hr 07/14/19 11:24 07/14/19 11:28 07/14/19 11:30 Temperature 36.8 C Temperature Source Oral Sepsis Recent Fever Within 48 Hours Yes Sepsis New/Unexplained Change in Mental Status No Sepsis Action Taken by Nursing No Action Required Pulse Rate 108 H 107 H 112 H Pulse Rate [Left Apical] Pulse Rate from SpO2 Sensor 91 H 101 H Respiratory Rate 20 26 H 19 Respiratory Effort / Characteristics Spontaneous Short of Breath Respiratory Depth Normal Respiratory Pattern Regular Blood Pressure 170/141 H 178/141 H Blood Pressure Mean 150 153 Pulse Oximetry 99 96 97 Oxygen Delivery Method CPAP Fraction of Inspired Oxygen 100 07/14/19 11:37 07/14/19 11:38 07/14/19 12:04 Temperature Temperature Source Sepsis Recent Fever Within 48 Hours Sepsis New/Unexplained Change in Mental Status Sepsis Action Taken by Nursing Pulse Rate Pulse Rate [Left Apical] Pulse Rate from SpO2 Sensor Respiratory Rate Respiratory Effort / Characteristics Respiratory Depth Respiratory Pattern Blood Pressure Blood Pressure Mean Pulse Oximetry 97 99 Oxygen Delivery Method CPAP CPAP CPAP Fraction of Inspired Oxygen 07/14/19 12:13 07/14/19 12:33 07/14/19 12:45 Temperature Temperature Source Sepsis Recent Fever Within 48 Hours Sepsis New/Unexplained Change in Mental Status Sepsis Action Taken by Nursing Pulse Rate 103 H 110 H Pulse Rate [Left Apical] 106 H Pulse Rate from SpO2 Sensor 101 H 98 H Respiratory Rate 20 25 H 21 Respiratory Effort / Characteristics Non-Labored Spontaneous Respiratory Depth Respiratory Pattern Blood Pressure 104/53 L 99/58 L Blood Pressure Mean 70 71 Pulse Oximetry 97 99 100 Oxygen Delivery Method BiPAP Fraction of Inspired Oxygen 100 07/14/19 13:00 07/14/19 13:30 07/14/19 13:44 Temperature Temperature Source Sepsis Recent Fever Within 48 Hours Sepsis New/Unexplained Change in Mental Status Sepsis Action Taken by Nursing Pulse Rate 101 H 98 H 97 H Pulse Rate [Left Apical] Pulse Rate from SpO2 Sensor 104 H 91 H 82 Respiratory Rate 16 32 H 27 H Respiratory Effort / Characteristics Respiratory Depth Respiratory Pattern Blood Pressure 105/50 L 90/52 L 98/51 L Blood Pressure Mean 68 64 66 Pulse Oximetry 100 100 99 Oxygen Delivery Method Fraction of Inspired Oxygen 07/14/19 14:00 07/14/19 14:30 Temperature Temperature Source Sepsis Recent Fever Within 48 Hours Sepsis New/Unexplained Change in Mental Status Sepsis Action Taken by Nursing Pulse Rate 96 H 103 H Pulse Rate [Left Apical] Pulse Rate from SpO2 Sensor 97 H 98 H Respiratory Rate 21 18 Respiratory Effort / Characteristics Respiratory Depth Respiratory Pattern Blood Pressure 102/47 L 88/53 L Blood Pressure Mean 65 64 Pulse Oximetry 99 94 Oxygen Delivery Method Fraction of Inspired Oxygen GENERAL: Falls asleep on exam. Difficult to arouse. BiPAP in place. HENT: Normocephalic, atraumatic. Oropharynx unremarkable. EYES: Normal conjunctiva. Sclera non-icteric. NECK: Supple. No nuchal rigidity. FROM. No JVD. RESPIRATORY: Clear to auscultation. CARDIAC: Regular rate, normal rhythm. Extremities warm and well perfused. Pulses equal. ABDOMEN: Soft, non-distended. No tenderness to palpation. No rebound or guarding. No masses. RECTAL: Deferred. MUSCULOSKELETAL: Chest examination reveals no tenderness. The back is symmetrical on inspection without obvious abnormality. There is no CVA tenderness to palpation. No joint edema. LOWER EXTREMITIES: Calves are equal size bilaterally and non-tender. No edema. No discoloration. NEURO: Normal sensorium. No sensory or motor deficits noted. SKIN: No rash or jaundice noted. Course 1144:The patient was evaluated in room C07. A complete history and physical examination was performed. 1335: I discussed the patient's case with MADHURI Guerra, who will evaluate the patient for further management and care. 1345: Upon reevaluation, the patient is resting comfortably. I discussed laboratory and radiographic results with the patient and her [id number]. They verbalized agreement of the treatment plan. The patient will be evaluated for further management and care. Consultations Consultation #1: I discussed the patient's case with MADHURI Guerra, who will evaluate the patient for further management and care. Time: 13:35 Administered Medications Acetaminophen (Tylenol) 1,000 mg PO HS ALIN Stop: 08/13/19 20:59 Last Admin: 07/14/19 22:19 Dose: 1,000 mg Documented by: [id number] Albuterol (Duoneb) 3 ml NEB QIDR ALIN Stop: 08/13/19 16:59 Last Admin: 07/15/19 07:04 Dose: 3 ml Documented by: [id number] Admin: 07/14/19 19:18 Dose: 3 ml Documented by: [id number] Admin: 07/14/19 17:38 Dose: 3 ml Documented by: [id number] Admin: 07/14/19 16:56 Dose: Not Given Documented by: [id number] Diclofenac Sodium (Voltaren 1% Top) 2 appln EXT BID ALIN Stop: 08/13/19 20:59 Last Admin: 07/14/19 22:00 Dose: 2 appln Documented by: [id number] Docusate Sodium (Colace) 100 mg PO BID [facility] Stop: 08/13/19 20:59 Last Admin: 07/14/19 22:19 Dose: 100 mg Documented by: [id number] Duloxetine HCl (Cymbalta) 30 mg PO [facility] Stop: 08/13/19 20:59 Last Admin: 07/14/19 22:19 Dose: 30 mg Documented by: [id number] Gabapentin (Neurontin) 200 mg PO BID@0830,1630 [facility] Stop: 08/13/19 16:59 Last Admin: 07/14/19 17:27 Dose: Not Given Documented by: [id number] Gabapentin (Neurontin) 600 mg PO [facility] Stop: 08/13/19 20:59 Last Admin: 07/14/19 22:19 Dose: 600 mg Documented by: [id number] Methylprednisolone 40 mg/ (Syringe) 0.64 mls @ 1.5 mls/min IV Q12H [facility] Stop: 08/13/19 15:55 Last Admin: 07/15/19 05:00 Dose: 1.5 mls/min Documented by: [id number] Admin: 07/14/19 17:32 Dose: 1.5 mls/min Documented by: [id number] Cefepime HCl 2,000 mg/ Syringe 20 mls @ 5.5 mls/min IV Q12H [facility]; Protocol Stop: 07/21/19 23:59 Last Admin: 07/15/19 05:00 Dose: 5.5 mls/min Documented by: [id number] Heparin Sodium/Dextrose (Heparin Sodium/Dextrose) 25,000 units in 500 mls @ 33 mls/hr IV .[id number] [facility]; Protocol Stop: 08/13/19 19:59 Last Titration: 07/15/19 07:07 Dose: 1,650 units/hr, 33 mls/hr Documented by: [id number] Cosigned by: [id number] Admin: 07/14/19 19:57 Dose: 1,650 units/hr, 33 mls/hr Documented by: [id number] Cosigned by: [id number] Amiodarone HCl/Dextrose (Nexterone / D5w) 360 mg in 200 mls @ 33.333 mls/hr IV .Q6H ALIN Stop: 07/15/19 10:59 Last Infusion: 07/15/19 07:07 Dose: 1 mg/min, 33.3 mls/hr Documented by: [id number] Cosigned by: [id number] Admin: 07/15/19 04:50 Dose: 1 mg/min, 33.3 mls/hr Documented by: [id number] Cosigned by: [id number] Levothyroxine Sodium (Synthroid) 50 mcg PO DAILYBB ALIN Stop: 08/14/19 06:29 Last Admin: 07/15/19 06:13 Dose: Not Given Documented by: [id number] Miscellaneous (Order Awaiting Action) 1 ea N/A QS [facility] Stop: 08/14/19 00:00 Last Admin: 07/15/19 00:28 Dose: Not Given Documented by: [id number] Miscellaneous (Order Awaiting Action) 1 ea N/A QS [facility] Stop: 08/14/19 00:00 Last Admin: 07/15/19 00:28 Dose: Not Given Documented by: [id number] Miscellaneous (Fentanyl Patch Check Placement) 1 ea N/A QS [facility] Stop: 07/16/19 08:01 Last Admin: 07/15/19 00:28 Dose: 1 ea Documented by: [id number] Montelukast Sodium (Singulair) 10 mg PO PM [facility] Stop: 08/13/19 20:59 Last Admin: 07/14/19 22:19 Dose: 10 mg Documented by: [id number] Ropinirole HCl (Requip) 1 mg PO TID ALIN Stop: 08/13/19 20:59 Last Admin: 07/14/19 16:16 Dose: 1 mg Documented by: [id number] Fluticasone/Salmeterol (Advair Diskus 500/50) 1 puffs INH BID [facility] Stop: 08/13/19 20:59 Last Admin: 07/14/19 21:41 Dose: Not Given Documented by: [id number] Discontinued Medications Acetaminophen (Tylenol) 1,000 mg PO NOW STA Stop: 07/14/19 12:49 Last Admin: 07/14/19 13:03 Dose: Not Given Documented by: [id number] Acetaminophen (Tylenol) Confirm Administered Dose 1,000 mg .ROUTE .STK-MED ONE Stop: 07/14/19 13:01 Last Admin: 07/14/19 13:03 Dose: 1,000 mg Documented by: [id number] Adenosine (Adenosine) Confirm Administered Dose 6 mg IV .[facility] ONE Stop: 07/15/19 04:20 Last Admin: 07/15/19 04:19 Dose: 6 mg Documented by: [id number] Adenosine (Adenosine) Confirm Administered Dose 12 mg IV .[facility] ONE Stop: 07/15/19 04:28 Last Admin: 07/15/19 04:27 Dose: 12 mg Documented by: [id number] Adenosine (Adenosine) Confirm Administered Dose 12 mg IV .[facility] ONE Stop: 07/15/19 04:34 Last Admin: 07/15/19 04:34 Dose: 12 mg Documented by: [id number] Adenosine (Adenosine) 6 mg IV NOW STA Stop: 07/15/19 04:37 Last Admin: 07/15/19 04:56 Dose: Not Given Documented by: [id number] Adenosine (Adenosine) 12 mg IV NOW STA Stop: 07/15/19 04:39 Last Admin: 07/15/19 04:57 Dose: Not Given Documented by: [id number] Adenosine (Adenosine) 12 mg IV NOW STA Stop: 07/15/19 04:39 Last Admin: 07/15/19 04:58 Dose: Not Given Documented by: [id number] Albuterol (Duoneb) 12 ml NEB ONE ONE Stop: 07/14/19 11:50 Last Admin: 07/14/19 12:09 Dose: 12 ml Documented by: [id number] Amiodarone HCl/Dextrose (Nexterone / D5w) Confirm Administered Dose 150 mg IV . [facility] ONE Stop: 07/15/19 04:37 Last Admin: 07/15/19 04:40 Dose: 150 mg Documented by: [id number] Cosigned by: [id number] Amiodarone HCl/Dextrose (Nexterone / D5w) Confirm Administered Dose 360 mg IV .[facility] ONE Stop: 07/15/19 04:38 Last Admin: 07/15/19 05:00 Dose: Not Given Documented by: [id number] Furosemide (Lasix) 20 mg IV NOW ONE Stop: 07/14/19 15:16 Last Admin: 07/14/19 17:27 Dose: Not Given Documented by: [id number] Levofloxacin/Dextrose (Levaquin/D5w) 750 mg in 150 mls @ 100 mls/hr IV NOW STA Stop: 07/14/19 13:59 Last Infusion: 07/14/19 16:02 Dose: 0 mls/hr Documented by: [id number] Admin: 07/14/19 14:14 Dose: 100 mls/hr Documented by: [id number] Sodium Chloride (Nss 1000ml) 500 mls @ 999 mls/hr IV .Q31M ONE Stop: 07/14/19 13:00 Last Infusion: 07/14/19 15:18 Dose: 0 mls/hr Documented by: [id number] Admin: 07/14/19 13:42 Dose: 999 mls/hr Documented by: [id number] Vancomycin HCl 2,750 mg/ (Sodium Chloride) 555 mls @ 200 mls/hr IV NOW ONE Stop: 07/14/19 15:16 Last Admin: 07/14/19 16:30 Dose: Not Given Documented by: [id number] Piperacillin Sod/Tazobactam Sod (Zosyn) 4.5 gm in 120 mls @ 240 mls/hr IV NOW ONE Stop: 07/14/19 12:59 Last Infusion: 07/14/19 13:44 Dose: 0 mls/hr Documented by: [id number] Admin: 07/14/19 13:03 Dose: 240 mls/hr Documented by: [id number] Albumin Human (Albumin 25%) 50 mls @ 50 mls/hr IV ONE ONE Stop: 07/14/19 16:14 Last Admin: 07/14/19 17:27 Dose: Not Given Documented by: [id number] Cefepime HCl 2,000 mg/ Syringe 20 mls @ 5 mls/min IV NOW STA; Protocol Stop: 07/14/19 15:11 Last Admin: 07/14/19 16:27 Dose: 5 mls/min Documented by: [id number] Piperacillin Sod/Tazobactam (Sod 3.375 gm/ Dextrose) 115 mls @ 28.75 mls/hr IV Q8H [facility]; Protocol Stop: 07/21/19 15:55 Last Admin: 07/14/19 16:30 Dose: Not Given Documented by: [id number] Linezolid (Zyvox) 600 mg in 300 mls @ 200 mls/hr IV BID ALIN Stop: 07/21/19 17:59 Last Infusion: 07/14/19 19:10 Dose: 0 mls/hr Documented by: [id number] Admin: 07/14/19 17:32 Dose: 200 mls/hr Documented by: [id number] Metronidazole (Flagyl) 500 mg in 100 mls @ 100 mls/hr IV Q8H ALIN Stop: 07/16/19 19:59 Last Infusion: 07/14/19 21:15 Dose: 0 mls/hr Documented by: [id number] Admin: 07/14/19 19:53 Dose: 100 mls/hr Documented by: [id number] Vancomycin HCl 2,750 mg/ (Sodium Chloride) 555 mls @ 200 mls/hr IV NOW ONE Stop: 07/15/19 00:46 Last Infusion: 07/15/19 01:15 Dose: 0 mls/hr Documented by: [id number] Admin: 07/14/19 22:18 Dose: 200 mls/hr Documented by: [id number] Bumetanide 1 mg/ Syringe 4 mls @ 4 mls/min IV NOW ONE Stop: 07/14/19 22:16 Last Admin: 07/14/19 22:18 Dose: 4 mls/min Documented by: [id number] Amiodarone HCl/Dextrose (Nexterone / D5w) 150 mg in 100 mls @ 600 mls/hr IV ONE STA Stop: 07/15/19 04:48 Last Admin: 07/15/19 04:59 Dose: Not Given Documented by: [id number] Potassium Chloride (Laruel Ciel Elix) 20 meq PO NOW ONE Stop: 07/14/19 22:16 Last Admin: 07/14/19 22:18 Dose: 20 meq Documented by: [id number] Medical Decision Making Differential Diagnosis Differential diagnosis: Etiologies such as infections, reactive airway disease, pneumonia, pneumothorax, COPD, CHF, cardiac ischemia, pulmonary embolism, musculoskeletal, gastrointestinal, as well as others were entertained. Medical Records Attestation: I reviewed the patient's medical records. Home Medications Current Medication List: was personally reviewed by me Laboratory Data Attestation: I reviewed the patient's lab results. Result diagrams: 07/15/19 02:16 07/15/19 02:16 Lab Results 09/01/19 09/01/19 09/01/19 Range/Units 12:07 12:07 12:07 WBC 80.50 H* (4.8-10.8) K/uL RBC 2.84 L (4.2-5.4) M/uL Hgb 10.0 L (12.0-16.0) g/dL POC Hgb (12.0-16.0) g/dl Hct 30.5 L (37-47) % POC Hct (37-47) % MCV 107.4 H (80-100) fL MCH 35.2 H (25-34) pg MCHC 32.8 (32-36) g/dL RDW Std Deviation 68.5 H (36.4-46.3) fL RDW Coeff of Marta 17.4 H (11.5-14.5) % Plt Count 257 (130-400) K/uL MPV 12.2 H (7.4-10.4) fL Immature Gran % (Auto) 4.8 % Neut % (Auto) 86.4 % Lymph % (Auto) 3.2 % [place] % (Auto) 5.5 % Eos % (Auto) 0.0 % Baso % (Auto) 0.1 % Immature Gran # (Auto) 3.84 H (0.00-0.02) K/uL Neut # (Auto) 69.53 H (1.4-6.5) K/uL Lymph # (Auto) 2.58 (1.2-3.4) K/uL [place] # (Auto) 4.45 H (0.11-0.59) K/uL Eos # (Auto) 0.01 (0-0.5) K/uL Baso # (Auto) 0.09 (0-0.2) K/uL Platelet Estimate Normal (Normal) PT 11.6 (9.0-12.0) Seconds INR 1.1 (0.9-1.1) APTT 25.1 (21.0-31.0) Seconds PTT Ratio 0.9 D-Dimer (0-500) ug/L FEU POC Sodium (135-144) mEq/L Sodium 143 (136-145) mmol/L POC Potassium (3.3-5.0) mEq/L Potassium (3.5-5.1) mmol/L POC Chloride (101-112) mEq/L Chloride 106 (98-107) mmol/L Carbon Dioxide 33 H (21-32) mmol/L POC Total CO2 (24-31) mEq/l Anion Gap 4.0 (3-11) POC Anion Gap (16-25) mmol/L POC BUN (7-18) mg/dl BUN 32 H (7-18) mg/dl Creatinine 1.62 H (0.6-1.2) mg/dl POC Creatinine (0.6-1.3) mg/dl Est Cr Clr Drug Dosing 35.2 ml/min Est GFR ( Amer) 32.7 Est GFR (Non-Af Amer) 28.2 BUN/Creatinine Ratio 19.9 (10-20) Glucose 104 H (70-99) mg/dl POC Glucose (other) (70-99) mg/dl POC Lactic Acid Binu (0.90-1.70) mmol/L Calcium 8.8 (8.5-10.1) mg/dl POC Ioniz Calcium Maurilio (1.12-1.32) mmol/l Total Bilirubin 1.0 (0.2-1) mg/dl AST (15-37) U/L ALT 33 (12-78) U/L Alkaline Phosphatase 95 (45-117) U/L Total Creatine Kinase (26-192) U/L CK-MB (CK-2) (0.5-3.6) ng/ml CK/CKMB % Calc Troponin I (0-0.045) ng/ml Total Protein 5.7 L (6.4-8.2) gm/dl Albumin 2.6 L (3.4-5.0) gm/dl Globulin 3.1 (2.5-4.0) gm/dl Albumin/Globulin Ratio 0.8 L (0.9-2) Urine Color Urine Appearance (Clear) Urine pH (4.5-7.5) Ur Specific Ada (1.000-1.030) Urine Protein (Negative) Urine Glucose (UA) (Negative) Urine Ketones (Negative) Urine Blood (Negative) Urine Nitrite (Negative) Urine Bilirubin (Negative) Urine Urobilinogen (Negative) Ur Leukocyte Esterase (Negative) Urine WBC (Auto) (0-5) /hpf Urine RBC (Auto) (0-4) /hpf U Hyaline Cast (Auto) (0-5) /lpf U Epithel Cells (Auto) (0-5) /lpf Urine Bacteria (Auto) (Negative) 07/14/19 07/14/19 07/14/19 Range/Units 12:07 12:07 12:15 WBC (4.8-10.8) K/uL RBC (4.2-5.4) M/uL Hgb (12.0-16.0) g/dL POC Hgb (12.0-16.0) g/dl Hct (37-47) % POC Hct (37-47) % MCV (80-100) fL MCH (25-34) pg MCHC (32-36) g/dL RDW Std Deviation (36.4-46.3) fL RDW Coeff of Marta (11.5-14.5) % Plt Count (130-400) K/uL MPV (7.4-10.4) fL Immature Gran % (Auto) % Neut % (Auto) % Lymph % (Auto) % [place] % (Auto) % Eos % (Auto) % Baso % (Auto) % Immature Gran # (Auto) (0.00-0.02) K/uL Neut # (Auto) (1.4-6.5) K/uL Lymph # (Auto) (1.2-3.4) K/uL [place] # (Auto) (0.11-0.59) K/uL Eos # (Auto) (0-0.5) K/uL Baso # (Auto) (0-0.2) K/uL Platelet Estimate (Normal) PT (9.0-12.0) Seconds INR (0.9-1.1) APTT (21.0-31.0) Seconds PTT Ratio D-Dimer 1470 H* (0-500) ug/L FEU POC Sodium (135-144) mEq/L Sodium (136-145) mmol/L POC Potassium (3.3-5.0) mEq/L Potassium (3.5-5.1) mmol/L POC Chloride (101-112) mEq/L Chloride (98-107) mmol/L Carbon Dioxide (21-32) mmol/L POC Total CO2 (24-31) mEq/l Anion Gap (3-11) POC Anion Gap (16-25) mmol/L POC BUN (7-18) mg/dl BUN (7-18) mg/dl Creatinine (0.6-1.2) mg/dl POC Creatinine (0.6-1.3) mg/dl Est Cr Clr Drug Dosing ml/min Est GFR ( Amer) Est GFR (Non-Af Amer) BUN/Creatinine Ratio (10-20) Glucose (70-99) mg/dl POC Glucose (other) (70-99) mg/dl POC Lactic Acid Binu 3.16 H (0.90-1.70) mmol/L Calcium (8.5-10.1) mg/dl POC Ioniz Calcium Maurilio (1.12-1.32) mmol/l Total Bilirubin (0.2-1) mg/dl AST (15-37) U/L ALT (12-78) U/L Alkaline Phosphatase (45-117) U/L Total Creatine Kinase (26-192) U/L CK-MB (CK-2) < 1.0 (0.5-3.6) ng/ml CK/CKMB % Calc TNP Troponin I < 0.015 (0-0.045) ng/ml Total Protein (6.4-8.2) gm/dl Albumin (3.4-5.0) gm/dl Globulin (2.5-4.0) gm/dl Albumin/Globulin Ratio (0.9-2) Urine Color Urine Appearance (Clear) Urine pH (4.5-7.5) Ur Specific Ada (1.000-1.030) Urine Protein (Negative) Urine Glucose (UA) (Negative) Urine Ketones (Negative) Urine Blood (Negative) Urine Nitrite (Negative) Urine Bilirubin (Negative) Urine Urobilinogen (Negative) Ur Leukocyte Esterase (Negative) Urine WBC (Auto) (0-5) /hpf Urine RBC (Auto) (0-4) /hpf U Hyaline Cast (Auto) (0-5) /lpf U Epithel Cells (Auto) (0-5) /lpf Urine Bacteria (Auto) (Negative) 07/14/19 07/14/19 Range/Units 12:22 12:30 WBC (4.8-10.8) K/uL RBC (4.2-5.4) M/uL Hgb (12.0-16.0) g/dL POC Hgb 10.9 L (12.0-16.0) g/dl Hct (37-47) % POC Hct 32 L (37-47) % MCV (80-100) fL MCH (25-34) pg MCHC (32-36) g/dL RDW Std Deviation (36.4-46.3) fL RDW Coeff of Marta (11.5-14.5) % Plt Count (130-400) K/uL MPV (7.4-10.4) fL Immature Gran % (Auto) % Neut % (Auto) % Lymph % (Auto) % [place] % (Auto) % Eos % (Auto) % Baso % (Auto) % Immature Gran # (Auto) (0.00-0.02) K/uL Neut # (Auto) (1.4-6.5) K/uL Lymph # (Auto) (1.2-3.4) K/uL [place] # (Auto) (0.11-0.59) K/uL Eos # (Auto) (0-0.5) K/uL Baso # (Auto) (0-0.2) K/uL Platelet Estimate (Normal) PT (9.0-12.0) Seconds INR (0.9-1.1) APTT (21.0-31.0) Seconds PTT Ratio D-Dimer (0-500) ug/L FEU POC Sodium 140 (135-144) mEq/L Sodium (136-145) mmol/L POC Potassium 4.0 (3.3-5.0) mEq/L Potassium (3.5-5.1) mmol/L POC Chloride 101 (101-112) mEq/L Chloride (98-107) mmol/L Carbon Dioxide (21-32) mmol/L POC Total CO2 30 (24-31) mEq/l Anion Gap (3-11) POC Anion Gap 14.0 L (16-25) mmol/L POC BUN 35 H (7-18) mg/dl BUN (7-18) mg/dl Creatinine (0.6-1.2) mg/dl POC Creatinine 1.6 H (0.6-1.3) mg/dl Est Cr Clr Drug Dosing ml/min Est GFR ( Amer) Est GFR (Non-Af Amer) BUN/Creatinine Ratio (10-20) Glucose (70-99) mg/dl POC Glucose (other) 109 H (70-99) mg/dl POC Lactic Acid Binu (0.90-1.70) mmol/L Calcium (8.5-10.1) mg/dl POC Ioniz Calcium Maurilio 1.20 (1.12-1.32) mmol/l Total Bilirubin (0.2-1) mg/dl AST (15-37) U/L ALT (12-78) U/L Alkaline Phosphatase (45-117) U/L Total Creatine Kinase (26-192) U/L CK-MB (CK-2) (0.5-3.6) ng/ml CK/CKMB % Calc Troponin I (0-0.045) ng/ml Total Protein (6.4-8.2) gm/dl Albumin (3.4-5.0) gm/dl Globulin (2.5-4.0) gm/dl Albumin/Globulin Ratio (0.9-2) Urine Color Yellow Urine Appearance Cloudy A (Clear) Urine pH 7.0 (4.5-7.5) Ur Specific Ada 1.012 (1.000-1.030) Urine Protein Negative (Negative) Urine Glucose (UA) Negative (Negative) Urine Ketones Negative (Negative) Urine Blood Trace H (Negative) Urine Nitrite Positive A (Negative) Urine Bilirubin Negative (Negative) Urine Urobilinogen Negative (Negative) Ur Leukocyte Esterase 2+ H (Negative) Urine WBC (Auto) >30 H (0-5) /hpf Urine RBC (Auto) 0-4 (0-4) /hpf U Hyaline Cast (Auto) 5-10 H (0-5) /lpf U Epithel Cells (Auto) 0-5 (0-5) /lpf Urine Bacteria (Auto) 3+ H (Negative) Imaging Data Radiologist's Impression: Radiology results as stated below per my review and the radiologist's interpretation: XR chest 1V portable HISTORY: Sepsis COMPARISON: Chest 06/03/2019. FINDINGS: There are low lung volumes. The heart remains mildly enlarged. Diffuse interstitial thickening persists. No pneumothorax. Right basilar densities have progressed. Trace bilateral pleural effusions. IMPRESSION: 1. Slight progression of a mild pulmonary edema with trace bilateral pleural effusions. 2. Right basilar airspace opacities have progressed. This could represent atelectasis or pneumonia. Electronically signed by: Darshan Yin M.D. 07/14/2019 1:11 PM ECG Data Attestation: I personally reviewed and interpreted this ECG as follows: Indication: SOB/dyspnea Rate (beats per minute): 100 Rhythm: sinus rhythm Findings: no ST depression, no ST elevation and no acute ischemic change Blood Pressure Blood Pressure Findings: Elevated blood pressure Blood Pressure Disposition: Referred to patients primary care provider MDM Narrative This is an 88-year-old female who presents emergency department complaining of hypoxia. Patient was placed on BiPAP upon arrival to the emergency department. Repeat examination revealed improvement in the patient's symptoms. An ABG was obtained as well as urinalysis. Cultures were obtained. The patient was found to have an elevation in her lactic acid. She was gently hydrated with normal saline boluses. She was pancultured and started on broad-spectrum antibiotics. I did discuss the case with the hospitalist service who agreed to admit the patient. Family was in agreement with the treatment plan. Impression & Plan Hypoxia, UTI (urinary tract infection), Neutrophilic leukemoid reaction, Chronic diastolic CHF (congestive heart failure), CKD (chronic kidney disease), stage III, COPD exacerbation Critical Care Time I have personally spent greater than 30 minutes of critical care time in the direct management of this patient. This includes bedside care, interpretation of diagnostic studies, and testing, discussion with consultants, patient, and family members, and other required patient management activities. This 30 minutes is in excess of all separately billable procedures. Discharge Plan Visit Data *Final* Discharge Date/Time: 07/14/19 15:23 Chief Complaint: Respiratory Distress ED Provider: Shivam Rousseau Discharge Problem: Hypoxia, UTI (urinary tract infection), Neutrophilic leukemoid reaction, Chronic diastolic CHF (congestive heart failure), CKD (chronic kidney disease), stage III, COPD exacerbation Patient Disposition: Admitted As Inpatient Discharge Instructions Interventions: ED Discharge Assessment Last Done: 07/14/19 15:23 Discharge Problem: UTI (urinary tract infection) Qualifiers: Urinary tract infection type: site unspecified Hematuria presence: without hematuria Qualified Code(s): N39.0 - Urinary tract infection, site not specified The scribe's documentation has been prepared under my direction and personally reviewed by me in its entirety. I confirm that the note above accurately reflects all work, treatment, procedures, and medical decision making performed by me.
[2019-07-15] MEDS: DOCUSATE SODIUM 100 MG CAP PO SCH ×2 (08:42→21:08)
[2019-07-15] MEDS: DICLOFENAC SOD 1% GEL 100 GM TUBE EXT SCH ×2 (08:42→21:08)
[2019-07-15] MEDS: MULTIVITAMIN TAB PO SCH (08:43)
[2019-07-15] MEDS: FLUTICASONE PROPIONATE NA SPR 16 GM BTL NAE SCH (08:44)
[2019-07-15] MEDS ORDERED: ALLOPURINOL 100 MG TAB PO SCH (09:00)
[2019-07-15] MEDS ORDERED: ROPINIROLE HCL 1 MG TABLET PO ONE (09:30)
[2019-07-15] MEDS ORDERED: PERFLUTREN LIPID MICROSPHERE (DEFINITY) IV ONE (10:05)
[2019-07-15] MEDS ORDERED: CARVEDILOL 3.125 MG TAB PO ONE (10:36)
[2019-07-15] MEDS: ERTAPENEM SODIUM 1,000 MG in SODIUM CHLORIDE 0.9% 50 ML IV SCH (11:15)
[2019-07-15] MEDS: HEPARIN SODIUM/DEXTROSE 25,000 UNITS/500 ML BAG IV SCH (11:17)
--- NOTE | 2019-07-15 15:02 | Cardiology Consultation ---
Date of Consultation July 15, 2019 Assessment & Plan (1) Acute on chronic respiratory failure: The patient's rapid deterioration is likely multifactorial in etiology. There appears to be a possible pneumonia, and she also demonstrates evidence of acute on chronic diastolic CHF. She has underlying chronic renal insufficiency requiring continuous flow oxygen. In addition to broad-spectrum antibiotics, would administer intravenous diuretics. (2) Diastolic CHF: As above, there is likely a component of acute on chronic diastolic CHF. Would use intravenous diuretics. (3) PAF (paroxysmal atrial fibrillation): The patient carries a history of paroxysmal atrial fibrillation. This was identified an EKG performed in May of this year. She was on renally adjusted Xarelto as an outpatient for history of DVT and PE. Agree with the use of intravenous amiodarone hoping to maintain sinus rhythm. Can convert her to 200 mg b.i.d. once the infusion is completed. History of Present Illness Attending Physician: Lukas Huddleston DO History of Present Illness Mrs. Mendez is an 88-year-old female admitted yesterday from [facility] with acute respiratory distress. This consultation was ordered to assist in her cardiac management. The patient was in her usual state of poor health until the day of presentation when she had the abrupt onset of shortness of breath, low-grade fever, and hypoxia. The patient was given a dose of intravenous ceftriaxone placed on BiPAP. She was then transferred to the emergency room for further care. On arrival here, the patient was doing poorly. She was apparently in a narrow complex tachycardia which responded to intravenous adenosine. She then converted to atrial fibrillation with a rapid ventricular response. She was started on intravenous amiodarone and has since converted to sinus rhythm. The patient has been placed on broad-spectrum antibiotics and intravenous heparin. Her renally adjusted Xarelto is currently on hold. Past medical and surgical history 1. Hypertension 2. Mild LVH 3. Diastolic CHF 4. Chronic renal failure 5. Paroxysmal atrial fibrillation 6. History of pulmonary embolism-2010 7. Right lower extremity DVT-2010 8. Paul filter placement-2010 9. Lung [id number] wedge resection-October 2010 10. History of breast carcinoma-May 2013 11. Right mastectomy-May 2013 12. Obstructive sleep apnea 13. Liver hemangioma 14. Pulmonary nodules 15. Obesity 16. Gout 17. Cholelithiasis 18. Hearing deficit 19. Abdominal hernia 20. Bilateral TKRs 21. Appendectomy 22. COPD/chronic respiratory failure 23. Myelodysplastic syndrome verses leukemia 24. GERD Social history Resides at [place] No tobacco or alcohol Family history Noncontributory. Review of systems A 10 point review of systems was undertaken and negative except for that described above. Allergies Allergy/AdvReac Type Severity Reaction Status Date / Time enoxaparin Allergy Intermediate RASH, Verified 07/14/19 12:13 PRURITUS Home Medications Home Medications Medication Instructions Recorded Confirmed Type Prilosec OTC 20 mg PO QAM 09/07/18 07/14/19 History Spiriva with HandiHaler 1 cap INHALATION QAM 09/07/18 07/14/19 History allopurinol 100 mg PO QAM 09/07/18 07/14/19 History duloxetine 30 mg PO HS 09/07/18 07/14/19 History fluticasone propion-salmeterol 1 inh INHALATION BID 09/07/18 07/14/19 History [Advair Diskus] gabapentin 600 mg PO HS 09/07/18 07/14/19 History losartan 50 mg PO QAM 09/07/18 07/14/19 History montelukast [Singulair] 10 mg PO PM 09/07/18 07/14/19 History albuterol sulfate 2.5 mg INH Q6H #90 ml 09/11/18 07/14/19 Rx Restasis MultiDose 1 drp OPHTHALMIC (EYE) BID 11/06/18 07/14/19 History acetaminophen 650 mg PO Q6H PRN MDD 3G 11/06/18 07/14/19 History albuterol sulfate [Ventolin HFA] 2 puff INHALATION Q4H PRN 11/06/18 07/14/19 History azelastine 2 spray INTRANASAL QAM 11/06/18 07/14/19 History fluticasone propionate [Flonase 2 spray INTRANASAL DAILY 11/06/18 07/14/19 History Allergy Relief] multivitamin 1 tab PO QAM 11/06/18 07/14/19 History Xarelto 15 mg PO PM 02/02/19 07/14/19 History acetaminophen [Tylenol Extra 1,000 mg PO HS 02/02/19 07/14/19 History Strength] diclofenac sodium [Voltaren] 2 g TOPICAL BID 02/02/19 07/14/19 History docusate sodium 100 mg PO BID 02/02/19 07/14/19 History ropinirole [Requip] 1 mg PO TID 02/02/19 07/14/19 History sodium chloride [Duplin Nasal] 1 spray INTRANASAL UD PRN 02/02/19 07/14/19 History fentanyl 1 patch TRANSDERMAL Q72H #1 ea 02/08/19 07/14/19 Rx benzonatate [Tessalon Perles] 100 mg PO TID 07/14/19 07/14/19 History budesonide 0.5 mg NEB Q12H 07/14/19 07/14/19 History ceftriaxone 1 g IM Q24H 07/14/19 07/14/19 History furosemide [Lasix] 20 mg PO QAM 07/14/19 07/14/19 History gabapentin 200 mg PO BID 07/14/19 07/14/19 History levothyroxine 50 mcg PO QAM 07/14/19 07/14/19 History lidocaine HCl 2.1 ml IM Q24H 07/14/19 07/14/19 History oxycodone 5 mg PO QAM PRN 07/14/19 07/14/19 History oxycodone 10 mg PO HS PRN 07/14/19 07/14/19 History polyethylene glycol 3350 [Miralax] 17 g PO PM 07/14/19 07/14/19 History Patient History Medical History Chronic back pain RLS (restless legs syndrome) Chronic diastolic CHF (congestive heart failure) (Chronic) COPD exacerbation (Acute) Hypoxia (Acute) Hypertension (Chronic) Asthma (Chronic) CKD (chronic kidney disease), stage III (Chronic) DCIS (ductal carcinoma in situ) (~2012) Deep vein blood clot of right lower extremity History of pulmonary embolism Lung cancer (~2010) Spasmodic dysphonia Surgical History H/O mastectomy History of back surgery Hx of appendectomy Hx of hernia repair Hx of hysterectomy Hx of resection of liver Hx of total knee replacement Family History Other Family history non-contributory Social History Preferred Language: [place] Communication Ability: Effective 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 HEENT exam is negative. Neck is supple with full carotid upstrokes. No obvious bruits. Jugular venous pressure is difficult to assess. Cardiovascular exam reveals regular rhythm with distant heart sounds. No obvious murmurs. Lungs notes scattered rhonchi but no rales. Breath sounds are distant. Abdomen is obese. Extremities reveal 1+ pitting edema to the knees bilaterally. Results & Data Vital Signs (Past 12 Hours) Vital Signs Temp Pulse Pulse Resp BP Pulse Ox 07/15/19 12:00 36.8 C 100 H 24 121/80 90 07/15/19 11:02 93 H 93 H 28 H 97 07/15/19 11:01 28 H 118/74 98 07/15/19 10:00 94 H 29 H 138/66 90 07/15/19 09:00 98 H 23 136/69 94 07/15/19 08:01 36.8 C 92 H 24 127/52 L 95 07/15/19 08:00 86 07/15/19 07:13 90 90 24 99 07/15/19 07:00 118 H 21 99 07/15/19 05:34 141 H 23 98 07/15/19 05:00 135 H 23 99/77 L 98 07/15/19 04:32 159 H 24 108/70 93 07/15/19 04:00 150 H 26 H 116/70 95 07/15/19 03:00 27 H 92/78 L 93 Laboratory Results CBC notes hemoglobin of 8.7, hematocrit 26.3, white count 65.5, and a platelet count of 915088. Electrolytes noticed sodium 142, potassium 4.6, chloride 106, bicarb 29, BUN 43, and a creatinine of 1.66. ProBNP is 2786. Troponin I level is undetectable less than 0.015. Diagnostic Findings Initial EKG in the emergency room notes sinus tachycardia with frequent PACs. There is an incomplete right bundle-branch block. Follow-up tracing notes atrial fibrillation with a rapid ventricular response. There is a complete right bundle-branch block. Chest x-ray a notes congestive changes and a right basilar infiltrate. PG Care Time/CCT Total # of Minutes Spent Total Time Spent with Patient: Total time spent is greater than 50% in coordination of care (as documented) at patient's floor/unit and/or counseling patient: (1) Diastolic CHF Heart failure chronicity: acute on chronic Qualified Code(s): I50.33 - Acute on chronic diastolic (congestive) heart failure (2) Acute on chronic respiratory failure Respiratory failure complication: hypoxia Qualified Code(s): J96.21 - Acute and chronic respiratory failure with hypoxia
--- NOTE | 2019-07-15 15:31 | Hospitalist Progress Note ---
Date of Service July 15, 2019 Assessment & Plan (1) Acute on chronic respiratory failure: - Likely component of acute diastolic CHF and possibly caused some hypotension from a cardiogenic nature - however there is slight progression of the basilar consolidation so the possibility of PNA is there - Continue CPAP HS - patient does report some noncompliance over the past few days prior to admission - She has been weaned back to her baseline 4 L NC at this time - reporting breathing is much better but not back to baseline yet - She will be continued on Heparin gtt at this time - concern for PE given renal dosed Xarelto and body habitus especially in the setting of acute respiratory d ecline - question of possible efficacy -- CTA held due to increased renal function and VQ would be nondiagnostic given her current status; will discuss possibility of Eliquis given studied renal dosing vs consideration for Coumadin conversion - Systemic steroids have been DCd at this time; Continue Duonebs - Abx coverage with Ertapenem Present on Admission?: Yes (2) UTI (urinary tract infection): - UCx with gram negative bacilli - has H/O MDR organisms - Cover with Ertapenem and await culture/sensitivities Present on Admission?: Yes (3) Leukocytosis: - Has a profound leukocytosis of 80 on admission which is improving - she follows with Dr. Shah -- She does report mention of possible MDS and the possibility of leukemia - she reports the plan was to avoid invasive testing such as bone marrow biopsy - There appears to be a component of infectious etiology but possibly a progression of MDS/other Present on Admission?: Yes (4) Diastolic CHF: - Acute on Chronic; Concern for possible poor forward flow due to venous congestion likely playing a role in hypotension on admission - Will place Lasix 20 mg IV daily and monitor I&Os/daily weights; will tread cautiously to prevent hypotension - Echo - EF 55-60%; no regional wall motion abnormalities; mild LVH Present on Admission?: Yes (5) PAF (paroxysmal atrial fibrillation): - On evening of 07/14 she was noted to have narrow complex tachycardia with no response to Adenosine; with further rate control an underlying A Fib was noted; appears she does have a H/O PAF - She was initially started on Amiodarone gtt and converted to NSR with rate control; Convert to Amiodarone 200 mg BID and continue to monitor rate/rhythm - Coreg 3.125 mg BID initiated Present on Admission?: No (6) COPD (chronic obstructive pulmonary disease): - No wheezing noted today; unlikely to have an underlying exacerbation Present on Admission?: Yes (7) Hypertension: - STABLE at this time - did not need pressor support overnight - Will Hold Losartan at this time given slight Cr increase as well Present on Admission?: Yes (8) CKD (chronic kidney disease), stage III: - Cr slightly elevated from baseline at 1.66 and will continue to trend- possibly mild MICHI - possibly from volume overload - BMP daily Present on Admission?: Yes (9) History of pulmonary embolism: - H/O DVT/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 and on Xarelto 15 mg daily - given body habitus and reduced dosing there is question of efficacy for appropriate coverage - treatment as above Present on Admission?: No (10) DVT prophylaxis: - Heparin gtt Disposition: Resident of [facility]; will obtain PT/OT evaluations; likely return to [facility] on D/C Subjective Reports feeling much better today and breathing improving. She has been weaned back to her baseline 4 L however she doesn't feel that her breathing is yet back to normal but is much better. She did have some narrow complex tachycardia overnight and appears underlying A Fib which she does carry a H/O PAF. She does report ongoing issues with her RLS. Tolerating diet without issue and moving her bowels. She denies any new complaints today. Review of Systems Constitutional: no fever and no chills Respiratory: + cough (chronic - no change) and + dyspnea (largely improved but not at baseline); no sputum production and no wheezing Cardiovascular: + edema; no chest pain and no lightheadedness Gastrointestinal: no abdominal pain, no nausea, no vomiting, no constipation and no diarrhea/loose stools Genitourinary: no dysuria Integumentary: chronic changes of b/l lower extremities - mildly erythematous but not warm to touch - reports they are baseline Physical Exam Constitutional: + obese and + frail appearing; no acute distress Eyes: + anicteric sclerae ENMT: Ears: no hearing impairment Neck: trachea midline Respiratory: + labored breathing (mild), + cough and able to speak in complete sentences (can finish almost full sentences); no respiratory distress and not tachypneic Auscultation: + diminished lung sounds and + crackles; no wheezes Cardiovascular: Rate/Rhythm: regular rate and regular rhythm Gastrointestinal (Abdomen): Inspection/Auscultation: normal bowel sounds; abdomen not distended Percussion/Palpation: abdomen soft; abdomen nontender Musculoskeletal: Head/Neck/Chest: normocephalic and head atraumatic Skin: chronic thickened skin with mild erythema of b/l lower extremities; not warm to touch Neurologic: moves all extremities Psychiatric: A+Ox3, euthymic affect Results & Data Vital Signs (Past 12 Hours) Vital Signs Temp Pulse Pulse Resp BP Pulse Ox 07/15/19 12:00 36.8 C 100 H 24 121/80 90 07/15/19 11:02 93 H 93 H 28 H 97 07/15/19 11:01 28 H 118/74 98 07/15/19 10:00 94 H 29 H 138/66 90 07/15/19 09:00 98 H 23 136/69 94 07/15/19 08:01 36.8 C 92 H 24 127/52 L 95 07/15/19 08:00 86 07/15/19 07:13 90 90 24 99 07/15/19 07:00 118 H 21 99 07/15/19 05:34 141 H 23 98 07/15/19 05:00 135 H 23 99/77 L 98 07/15/19 04:32 159 H 24 108/70 93 07/15/19 04:00 150 H 26 H 116/70 95 PG Care Time/CCT Total # of Minutes Spent Total Time Spent with Patient: Total time spent is greater than 50% in coordination of care (as documented) at patient's floor/unit and/or counseling patient: (1) Diastolic CHF Heart failure chronicity: acute on chronic Qualified Code(s): I50.33 - Acute on chronic diastolic (congestive) heart failure (2) Acute on chronic respiratory failure Respiratory failure complication: hypoxia Qualified Code(s): J96.21 - Acute and chronic respiratory failure with hypoxia (3) Hypertension Hypertension type: essential hypertension Qualified Code(s): I10 - Essential (primary) hypertension (4) UTI (urinary tract infection) Hematuria presence: without hematuria Urinary tract infection type: site unspecified Qualified Code(s): N39.0 - Urinary tract infection, site not specified
[2019-07-15] MEDS ORDERED: VANCOMYCIN HCL 1,750 MG in SODIUM CHLORIDE 0.9% 500 ML IV SCH (16:00)
--- NOTE | 2019-07-15 16:25 | Consultation Report ---
DATE OF CONSULTATION: 07/15/2019 REASON FOR CONSULTATION: Normocytic normochromic anemia and leukocytosis. HISTORY OF PRESENT ILLNESS: Anel is a pleasant 88-year-old morbidly obese female patient with multiple comorbid issues followed by me at the [facility] for persistent anemia which is believed to be attributable to myelodysplasia. She was admitted yesterday to the ICU because of subacute onset shortness of breath and dyspnea on exertion. She currently resides at [facility] and actually just saw Anel late last week at which time, she was a regular, normal self. She developed sudden onset shortness of breath and was transported to the Emergency Room. She was found to be hypoxic on her normal 4 liters of oxygen and increased up to 6 liters. She also was placed on BiPAP, which resulted in some improvement. According to the history and physical, apparently Anel had sensation of feeling something "stuck" and has been able to cough it up. Chest x-ray done on admission revealed slight progression of pulmonary edema and a slight increase in right basilar consolidation which could favor atelectasis versus pneumonia. When I visited with Anel recently, I explained to her that I believe she suffers from an underlying myelodysplasia and bone marrow biopsy would be a challenge because of her large body habitus and confirming the diagnosis would not necessarily change my approach because of her comorbid issues chemotherapy would not be advisable. It was agreed we would continue treating her symptomatically. Her white count has risen precipitously, mostly neutrophils; however, there is evidence of emerging immaturity as well. Conceivably, she is suffering from a high grade myelodysplasia versus leukemoid reaction. I was asked by the hospitalist service to visit with Anel while in house. I also recommended when I saw her as outpatient to proceed carefully with transfusional support in light of poor cardiac health. 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 She also has a remote history of lung cancer and ductal carcinoma in situ. PAST SURGICAL HISTORY: Includes mastectomy, back surgery, appendectomy, hernia repair, hysterectomy, resection of liver and a total knee replacement. MEDICATIONS: Prior to admission include Prilosec 20 mg p.o. daily, Spiriva 1 capsule inhaled daily, allopurinol 100 mg p.o. daily, duloxetine 30 mg p.o. daily, gabapentin 600 mg p.o. at bedtime, Advair Diskus one inhalation b.i.d., losartan 50 mg p.o. daily, Singulair 10 mg p.o. daily, albuterol sulfate 2.5 mg inhaled q.6 hours breathing treatment, Restasis MultiDose 1 drop ophthalmic b.i.d., acetaminophen 650 mg p.o. q.6 hours p.r.n., azelastine 2 sprays intranasally q.a.m., Flonase 2 sprays intranasally daily, one multivitamin p.o. daily, Xarelto 15 mg p.o. daily, Voltaren gel 2 grams topical b.i.d. to affected joints, docusate sodium 100 mg p.o. t.i.d., budesonide 0.5 mg nebulized q.12 hours, ceftriaxone 1 gram IM q.24, Lasix 20 mg p.o. daily, gabapentin 200 mg p.o. b.i.d., levothyroxine 50 mcg p.o. daily, lidocaine 2.1 mL IM q.24 hours, oxycodone 5 mg p.o. q.a.m. p.r.n., 10 mg p.o. at bedtime p.r.n., MiraLax 17 grams p.o. daily. ALLERGIES: ENOXAPARIN CAUSES RASH. SOCIAL HISTORY: She is presently in [facility] where she has resided for considerable length of time. She is nonsmoker, nondrinker. FAMILY HISTORY: Noncontributory. REVIEW OF SYSTEMS: Positive for a low-grade fever, no chills or sweats. She also admits to being anorexic. No significant weight loss. SKIN: No rashes or lesions. No history of dermatoses. HEENT: Negative for headaches, lightheadedness or dizziness. No acute visual or hearing deficits. She wears corrective lenses. No sore throat or dysphagia otherwise. LYMPH: No history of lymphoproliferative disease. CARDIAC: She has a history of coronary artery disease and atrial fibrillation. She presented in atrial fibrillation with rapid ventricular rate. No current angina or palpitations. PULMONARY: Positive for cough, nonproductive. Positive for dyspnea and wheezing. She is oxygen dependent and utilizes bronchodilators regularly. GASTROINTESTINAL: Negative for abdominal pain, nausea, vomiting, diarrhea or constipation. GENITOURINARY: No hematuria, dysuria, urinary incontinence. PSYCHIATRIC: Negative for anxiety, depression or psychoses. ENDOCRINE: Positive for hypothyroidism. MUSCULOSKELETAL: Positive for osteoarthritis. NEUROLOGIC: Negative for seizure, stroke, or migraine headache. HEMATOLOGIC: As per HPI. PHYSICAL EXAMINATION: GENERAL: Morbidly obese 88-year-old female, awake, alert and appropriate, in no acute distress. VITAL SIGNS: Temperature 36.8, pulse 100, respiratory rate 24, blood pressure 121/80. SKIN: Without rash or lesion. EXTREMITIES: No petechiae or ecchymosis noted, noncyanotic. HEENT: Atraumatic, normocephalic. Eyes: PERRLA, EOMI. Sclerae nonicteric. No conjunctival injection. Nares patent without rhinorrhea or discharge. Throat is clear. Tongue midline. NECK: Supple without JVD or thyromegaly. LYMPHATICS: No cervical or supraclavicular palpable nodes. HEART: Regular rate and rhythm. LUNGS: Diminished breath sounds in the posterior bases with fine wheeze on expiration. ABDOMEN: Obese, soft, nontender, nondistended. EXTREMITIES: Trace peripheral edema bilaterally. Her musculoskeletal strength is equal. NEUROLOGICALLY: She is awake, alert and oriented x3. Cranial nerves II-XII are intact. LABORATORY DATA: WBC count 65,510, hemoglobin 8.7, platelet count 281,000. Examination of the white cell differential reveals a predominance of neutrophils approximately 69,000. She has some monocytes as well as metamyelocytes and myelocytes noted. Her PTT is 60.4 seconds, currently on heparin. Sodium 142, potassium 4.6, chloride 106, carbon dioxide 29, creatinine 1.66, BUN 43, albumin 2.2. RADIOGRAPHIC DATA: Doppler: Bilateral Dopplers negative for DVT. Chest x-ray again slight progression and mild pulmonary edema with trace bilateral pleural effusions, right basilar airspace opacities which have progressed thought to be territory account representative of atelectasis versus pneumonia. IMPRESSION: 1. Possible pneumonia. 2. Leukocytosis (predominantly neutrophilia). 3. Macrocytic anemia. 4. Acute on chronic respiratory failure. 5. Chronic obstructive pulmonary disease exacerbation. 6. Atrial fibrillation with rapid ventricular response. 7. Hypoalbuminemia. PLAN: I saw Anel this afternoon at bedside. Interestingly, she was just in the office, I believe or Monday prior to admission. At that time, she offered no complaints, therefore became ill acutely. Anel states that she became acutely short of breath and dyspneic necessitating admission. She was given increased doses of supplemental oxygen and BiPAP along with aggressive bronchodilators. She is now on broad spectrum antibiotics and was started on unfractionated heparin because of her history of pulmonary embolism. Anel has several comorbid issues and my recommendations when I saw her outpatient was to continue managing her anemia symptomatically through gentle transfusion. I relayed this recommendation to the critical care team. Not entirely sure this rapid expansion of her white count is reactive leukemoid reaction or perhaps transformation to higher grade of myelodysplasia. Her body habitus is prohibitive to pursue bone marrow biopsy, nonetheless would not manage her any differently with diagnostic confirmation. Anel has many comorbid issues to pursue chemotherapy, but certainly would not be against temporizing measure perhaps p.o. hydroxyurea to slow progression. I explained my recommendation again to Anel. She is agreeable to no heroics. She has established DNR/DNI status. If her hemoglobin falls below 8 grams per deciliter, I would transfuse 1 unit very slowly and perhaps follow with a dose of IV loop diuretic. I have nothing further to add at this juncture. Thank you very much for allowing us to participate in her care. SUSY
--- NOTE | 2019-07-15 16:31 | Infectious Disease Consult ---
Date of Consultation July 15, 2019 Assessment & Plan (1) Pneumonia: 88-year-old female admitted with acute respiratory failure with possible complicating pneumonia given markedly elevated procalcitonin. Not clear whether patient has transformed into leukemic process given markedly elevated white blood cell count. For now, would continue patient on current broad-spectrum antibiotics pending final culture results. Will follow. (2) Sepsis associated hypotension: History of Present Illness Reason for Consultation: Zyvox IV Attending Physician: Lukas Huddleston DO History of Present Illness 88-year-old female with history of COPD on home oxygen, chronic diastolic congestive heart failure, hypertension, stage III chronic kidney disease, who was in usual state of health until the morning of admission when she became increasingly short of breath with low-grade fever of 99. She was brought to the hospital where she was found to be in rapid atrial fibrillation, with chest x- ray showing evidence of pulmonary edema with question of lower lobe infiltrate as well. She has been started empirically on ertapenem and vancomycin, blood cultures have been no growth to date. Patient has improved clinically, rate has been controlled, breathing better. Has been afebrile. No significant sputum production. Denies any abdominal or urinary complaints. Allergies Allergy/AdvReac Type Severity Reaction Status Date / Time enoxaparin Allergy Intermediate RASH, Verified 07/14/19 12:13 PRURITUS Home Medications Home Medications Medication Instructions Recorded Confirmed Type Prilosec OTC 20 mg PO QAM 09/07/18 07/14/19 History Spiriva with HandiHaler 1 cap INHALATION QAM 09/07/18 07/14/19 History allopurinol 100 mg PO QAM 09/07/18 07/14/19 History duloxetine 30 mg PO HS 09/07/18 07/14/19 History fluticasone propion-salmeterol 1 inh INHALATION BID 09/07/18 07/14/19 History [Advair Diskus] gabapentin 600 mg PO HS 09/07/18 07/14/19 History losartan 50 mg PO QAM 09/07/18 07/14/19 History montelukast [Singulair] 10 mg PO PM 09/07/18 07/14/19 History albuterol sulfate 2.5 mg INH Q6H #90 ml 09/11/18 07/14/19 Rx Restasis MultiDose 1 drp OPHTHALMIC (EYE) BID 11/06/18 07/14/19 History acetaminophen 650 mg PO Q6H PRN MDD 3G 11/06/18 07/14/19 History albuterol sulfate [Ventolin HFA] 2 puff INHALATION Q4H PRN 11/06/18 07/14/19 History azelastine 2 spray INTRANASAL QAM 11/06/18 07/14/19 History fluticasone propionate [Flonase 2 spray INTRANASAL DAILY 11/06/18 07/14/19 History Allergy Relief] multivitamin 1 tab PO QAM 11/06/18 07/14/19 History Xarelto 15 mg PO PM 02/02/19 07/14/19 History acetaminophen [Tylenol Extra 1,000 mg PO HS 02/02/19 07/14/19 History Strength] diclofenac sodium [Voltaren] 2 g TOPICAL BID 02/02/19 07/14/19 History docusate sodium 100 mg PO BID 02/02/19 07/14/19 History ropinirole [Requip] 1 mg PO TID 02/02/19 07/14/19 History sodium chloride [Parachute Nasal] 1 spray INTRANASAL UD PRN 02/02/19 07/14/19 History fentanyl 1 patch TRANSDERMAL Q72H #1 ea 02/08/19 07/14/19 Rx benzonatate [Tessalon Perles] 100 mg PO TID 07/14/19 07/14/19 History budesonide 0.5 mg NEB Q12H 07/14/19 07/14/19 History ceftriaxone 1 g IM Q24H 07/14/19 07/14/19 History furosemide [Lasix] 20 mg PO QAM 07/14/19 07/14/19 History gabapentin 200 mg PO BID 07/14/19 07/14/19 History levothyroxine 50 mcg PO QAM 07/14/19 07/14/19 History lidocaine HCl 2.1 ml IM Q24H 07/14/19 07/14/19 History oxycodone 5 mg PO QAM PRN 07/14/19 07/14/19 History oxycodone 10 mg PO HS PRN 07/14/19 07/14/19 History polyethylene glycol 3350 [Miralax] 17 g PO PM 07/14/19 07/14/19 History Patient History Medical History Chronic back pain RLS (restless legs syndrome) Chronic diastolic CHF (congestive heart failure) (Chronic) COPD exacerbation (Acute) Hypoxia (Acute) Hypertension (Chronic) Asthma (Chronic) CKD (chronic kidney disease), stage III (Chronic) DCIS (ductal carcinoma in situ) (~2012) Deep vein blood clot of right lower extremity History of pulmonary embolism Lung cancer (~2010) Spasmodic dysphonia Surgical History H/O mastectomy History of back surgery Hx of appendectomy Hx of hernia repair Hx of hysterectomy Hx of resection of liver Hx of total knee replacement Family History Other Family history non-contributory Social History Preferred Language: Cypriot Communication Ability: Effective [employer]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 Beliefs That Will Affect Care: None Current Living Situation: Residential Other Information That Helps Us Care for You: No Feels Safe at Home: Yes Safety Concerns: Feels Safe At This Time Smoking Status: Never smoker Do You Dip or Chew Tobacco: No ; Second Hand Exposure: No ; Tobacco Cessation Education Requested by Patient: No Hx Alcohol Use: No Hx Substance Use: No Review of Systems Review of Systems: All systems reviewed & are unremarkable except as noted in HPI & below Physical Exam Constitutional: WD/WN, vitals as above + obese; no acute distress Eyes: PERRL, conjunctivae normal, anicteric sclerae ENMT: external ear and nose normal, oropharynx normal Neck: trachea midline, no thyromegaly neck nontender Respiratory: normal respiratory effort and normal percussion; no respiratory distress and does not use accessory muscles Auscultation: + wheezes Cardiovascular: Rate/Rhythm: regular rate and regular rhythm Heart Sounds: normal S1 and normal S2; no gallop, no murmur and no cardiac rub Vessels: normal peripheral pulses; no JVD Gastrointestinal (Abdomen): normal bowel sounds, soft, nontender, no hepatosplenomegaly Musculoskeletal: no cyanosis or clubbing, extremities motor strength 5/5 Spine: thoracic spine normal to inspection and lumbar spine normal to inspection; no cervical spinal tenderness Skin: no rashes, warm and dry normal turgor; no lesions Neurologic: patellar DTR's 2+ bilat, sensation intact no focal motor deficits Psychiatric: A+Ox3, euthymic affect Orientation: cooperative Lymphatic: no cervical or axillary lymphadenopathy no inguinal lymphadenopathy Results & Data Vital Signs (Past 12 Hours) Vital Signs Temp Pulse Pulse Resp BP Pulse Ox 07/15/19 16:00 74 07/15/19 15:35 72 24 85 L 07/15/19 12:00 36.8 C 100 H 24 121/80 90 07/15/19 11:02 93 H 93 H 28 H 97 07/15/19 11:01 28 H 118/74 98 07/15/19 10:00 94 H 29 H 138/66 90 07/15/19 09:00 98 H 23 136/69 94 07/15/19 08:01 36.8 C 92 H 24 127/52 L 95 07/15/19 08:00 86 07/15/19 07:13 90 90 24 99 07/15/19 07:00 118 H 21 99 07/15/19 05:34 141 H 23 98 07/15/19 05:00 135 H 23 99/77 L 98 07/15/19 04:32 159 H 24 108/70 93 Laboratory Results Short CBC 07/14/19 07/15/19 Range/Units 17:49 02:16 WBC 73.02 H* 65.51 H* (4.8-10.8) K/uL Hgb 8.3 L 8.7 L (12.0-16.0) g/dL Hct 25.4 L 26.3 L (37-47) % Plt Count 243 281 (130-400) K/uL [facility] 07/14/19 07/15/19 17:49 02:16 Sodium 142 142 Potassium 4.1 4.6 Chloride 107 106 Carbon Dioxide 30 29 BUN 40 H 43 H Creatinine 1.64 H 1.66 H Glucose 139 H 139 H Calcium 8.5 8.4 L Liver Function 07/14/19 Range/Units 17:49 Total Bilirubin 0.9 (0.2-1) mg/dl AST 25 (15-37) U/L ALT 25 (12-78) U/L Alkaline Phosphatase 79 (45-117) U/L Albumin 2.2 L (3.4-5.0) gm/dl Diagnostic Findings Microbiology 07/14/19 12:07 Blood Aerobic Blood Culture - Preliminary No growth in Aerobic bottle after 24 hours. 07/14/19 12:07 Blood Anaerobic Blood Culture - Preliminary No growth in Anaerobic bottle after 24 hours. 07/14/19 12:28 Blood Aerobic Blood Culture - Preliminary No growth in Aerobic bottle after 24 hours. 07/14/19 12:28 Blood Anaerobic Blood Culture - Preliminary No growth in Anaerobic bottle after 24 hours. 07/14/19 08:30 Sputum, Expectorated Gram Stain - Final 07/14/19 12:30 Urine,Straight Cath Urine Culture - Preliminary Gram negative bacilli XR chest 1V portable HISTORY: Sepsis COMPARISON: Chest 06/03/2019. FINDINGS: There are low lung volumes. The heart remains mildly enlarged. Diffuse interstitial thickening persists. No pneumothorax. Right basilar densities have progressed. Trace bilateral pleural effusions. IMPRESSION: 1. Slight progression of a mild pulmonary edema with trace bilateral pleural effusions. 2. Right basilar airspace opacities have progressed. This could represent atelectasis or pneumonia. Electronically signed by: Darshan Yin M.D. 07/14/2019 1:11 PM Dictated: 07/14/19 1310 Transcribed: 07/14/19 1310 PG Care Time/CCT Total # of Minutes Spent Total Time Spent with Patient: Total time spent is greater than 50% in coordination of care (as documented) at patient's floor/unit and/or counseling patient: (1) Pneumonia Laterality: unspecified laterality Lung location: unspecified part of lung Pneumonia type: due to unspecified organism Qualified Code(s): J18.9 - Pneumonia, unspecified organism
[2019-07-15] MEDS ORDERED: VANCOMYCIN CONSULT ACTIVE PRN (18:05)
[2019-07-15] MEDS ORDERED: VANCOMYCIN HCL 1,000 MG in SODIUM CHLORIDE 0.9% 250 ML IV SCH (18:15)
[2019-07-15] MEDS: AMIODARONE 200 MG TAB PO SCH (18:20)
[2019-07-15] MEDS ORDERED: ENOXAPARIN 1 MG/KG SQ SCH (19:00)
[2019-07-15] MEDS ORDERED: ENOXAPARIN 150 MG/ML SYR SQ SCH (19:30)
[2019-07-15] MEDS ORDERED: Heparin IV Standard *NO* Bolus IV ONE (19:48)
[2019-07-15] MEDS ORDERED: HEPARIN SODIUM/DEXTROSE 25,000 UNITS/500 ML BAG IV SCH (20:00)
[2019-07-15] MEDS ORDERED: VANCOMYCIN HCL 2,500 MG in SODIUM CHLORIDE 0.9% 500 ML IV SCH (20:00)
[2019-07-15] MEDS: CARVEDILOL 3.125 MG TAB PO SCH (21:08)
[2019-07-15] MEDS: GABAPENTIN 600 MG TAB PO SCH (21:08)
[2019-07-15] MEDS: MONTELUKAST SODIUM 10 MG TABLET PO SCH (21:08)
[2019-07-15] MEDS: DULOXETINE HCL 30 MG CAP PO SCH (21:08)
[2019-07-15] MEDS: ACETAMINOPHEN 500 MG TAB PO SCH (21:08)
--- NOTE | 2019-07-15 21:42 | Pharmacy Report ---
Pharmacy Abx Initial Consult - Date of Service July 15, 2019 - Pharmacy Dosing Scope Date of Consult: 07/15/19 Consultation requested by: Radha Lane Pharmacy is consulted to initiate Vancomycin IV dosing therapy, order appropriate labs and adjust drug dose/frequency. - Subjective The patient is a 88 year old F admitted on 07/14/19 14:52. - Objective Height: 5 ft 6 in Weight: 137.5 kg Vital Signs (Past 12hrs): Vital Signs Temp Pulse Pulse Resp BP BP Pulse Ox 07/15/19 20:18 36.4 C L 78 18 119/66 90 07/15/19 19:01 77 16 94 07/15/19 17:15 36.6 C 78 18 120/70 93 07/15/19 17:08 97 H 07/15/19 16:00 74 07/15/19 15:35 72 24 95 07/15/19 12:00 36.8 C 100 H 24 121/80 90 07/15/19 11:02 93 H 93 H 28 H 97 07/15/19 11:01 28 H 118/74 98 07/15/19 10:00 94 H 29 H 138/66 90 Lab Results (24hrs): Laboratory Tests (24 Hours) 07/15/19 07/15/19 02:16 02:16 WBC 65.51 H* Creatinine 1.66 H Est Cr Clr Drug Dosing 34.4 Micro Results: 07/14/19 08:30 Gram Stain - Final Sputum, Expectorated Sputum Culture - Pending - Assessment & Plan Assessment * 88 year old F admitted with acute on chronic respiratory failure and leukocytosis * UCx with gram negative bacilli, Blood Cx with gram positive cocci * Currently receiving ertapenem and vancomycin * ID is consulted and awaiting final culture results Plan Vancomycin IV * Estimated PK Parameters: Vd 0.6 L/kg, Amaury 0.029 hr-1, t1/2 24 hr * Loading dose: 2750 mg (20 mg/kg) * Maintenance dose: 2500 mg IV (18 mg/kg) every 24 hours * Goal trough level: 15 to 20 mcg/mL * A trough level has not been ordered due to patient's mild MICHI. A level will be ordered based on patient's renal function over the next day or two. Pharmacy will continue to follow and will adjust dose/frequency as necessary. Thank you.
[2019-07-15] MEDS: ROPINIROLE HCL 1 MG TABLET PO SCH (21:43)
[2019-07-16] MEDS: HEPARIN SODIUM/DEXTROSE 25,000 UNITS/500 ML BAG IV SCH ×2 (01:29→18:11)
[2019-07-16] MEDS: LEVOTHYROXINE SODIUM 50 MCG TABLET PO SCH (05:53)
[2019-07-16] MEDS: ALBUT/IPRATROP 3MG/0.5MG NEB 3 ML VIAL NEB SCH ×4 (06:59→19:33)
[2019-07-16 07:25] LABS: Partial Thromboplastin Ratio 2.3
[2019-07-16 07:26] LABS: Partial Thromboplastin Time 63.1 Seconds (21.0-31.0)
[2019-07-16 07:32] LABS: Hematocrit (blood only) 25.9 % (37-47); Hemoglobin 8.5 g/dL (12.0-16.0); Mean Corpuscular Hgb Conc 32.8 g/dL (32-36); Mean Corpuscular Volume 103.6 fL (80-100); Mean Platelet Volume 12.7 fL (7.4-10.4); Platelet Count 243 K/uL (130-400); RDW Coefficient of Variation 18.1 % (11.5-14.5); RDW Standard Deviation 68.9 fL (36.4-46.3); White Blood Count 35.94 K/uL (4.8-10.8)
[2019-07-16 07:44] LABS: BUN Creatinine Ratio 33.1 (10-20); Calcium 8.9 mg/dl (8.5-10.1); Creatinine Clr Calc Pharmacy 42.6 ml/min; Est GFR (African American) 41.2; Est GFR (Non-African American) 35.5; Potassium 3.9 mmol/L (3.5-5.1)
[2019-07-16] MEDS: MULTIVITAMIN TAB PO SCH (08:12)
[2019-07-16] MEDS: AMIODARONE 200 MG TAB PO SCH ×2 (08:13→18:12)
[2019-07-16] MEDS: CARVEDILOL 3.125 MG TAB PO SCH ×2 (08:13→20:14)
[2019-07-16] MEDS: DICLOFENAC SOD 1% GEL 100 GM TUBE EXT SCH ×2 (08:16→20:12)
[2019-07-16] MEDS: FUROSEMIDE 20 MG in SYRINGE 0 ML IV SCH (08:16)
[2019-07-16] MEDS: DOCUSATE SODIUM 100 MG CAP PO SCH ×2 (08:17→20:15)
[2019-07-16] MEDS: fentaNYL 12 MCG/HR TDSY TD SCH (08:17)
[2019-07-16] MEDS: fentaNYL 25 MCG/HR TDSY TD SCH (08:17)
[2019-07-16] MEDS: CHECK FENTANYL PATCH PLACEMENT SCH ×5 (08:18→23:06)
--- NOTE | 2019-07-16 08:26 | Pharmacy Report ---
Pharmacy Abx Dose Short Note - Date of Service July 16, 2019 - Assessment & Plan Assessment 88 year old F receiving vancomycin/ertapenem for treatment of bacteremia/possible pneumonia/uti Day # 2-3 of antimicrobial therapy. Urine culture growing ESBL E. coli sensitive to ertapenem Infectious disease following Blood culture 11/16 growing GPC in clusters- negative for staph aureus- possible coag neg staph?, poss. contaminate?, afebrile, although significant white count Sputum pending, MRSA + nasal swab SCR FROM 1.66 -->1.34, urine output adequate as charted, will adjust dose given renal function improvement Plan Vancomycin * Change to 1500 mg (11 mg/kg) IV every 18 hours * Dosed on half life, however decreased dose as patient's BMI 49.6, at risk for significant accumulation * Goal trough level 15-20 mcg/mL * Trough ordered for 07/18 @0130 Pharmacy will continue to follow and will adjust dose/frequency as necessary. Thank you.
[2019-07-16] MEDS ORDERED: FUROSEMIDE 20 MG TAB PO SCH (09:00)
[2019-07-16] MEDS: ROPINIROLE HCL 1 MG TABLET PO SCH ×3 (11:32→20:13)
[2019-07-16] MEDS: ERTAPENEM SODIUM 1,000 MG in SODIUM CHLORIDE 0.9% 50 ML IV SCH (12:06)
[2019-07-16] MEDS ORDERED: ARTIFICIAL TEARS OP PRN (12:23)
--- NOTE | 2019-07-16 15:20 | Cardiology Progress Note ---
Date of Service July 16, 2019 Assessment & Plan (1) Acute on chronic respiratory failure: There appears to be a pneumonia, and she also demonstrates evidence of acute on chronic diastolic CHF. Agree with intravenous diuretics. She has underlying chronic respiratory insufficiency requiring continuous flow oxygen. (2) Diastolic CHF: Likely a component of acute on chronic diastolic CHF. Would use intravenous diuretics. (3) PAF (paroxysmal atrial fibrillation): The patient carries a history of paroxysmal atrial fibrillation. Has converted to sinus rhythm on intravenous amiodarone. Has been converted to oral dosing. She was on renally adjusted Xarelto as an outpatient for history of DVT and PE. Subjective The patient is resting comfortably and without complaints of chest pain, dyspnea, or palpitations. Physical Exam Physical Exam: Internal is a morbidly obese white female lying supine in bed without complaints. HEENT exam is negative. Neck is supple with full carotid upstrokes. No obvious bruits. Jugular venous pressure is difficult to assess. Cardiovascular exam reveals regular rhythm with distant heart sounds. No obvious murmurs. Lungs notes scattered rhonchi but no rales. Breath sounds are distant. Abdomen is obese. Extremities reveal 1+ pitting edema to the knees bilaterally. 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 PG Care Time/CCT Total # of Minutes Spent Total Time Spent with Patient: Total time spent is greater than 50% in coordination of care (as documented) at patient's floor/unit and/or counseling patient: (1) Diastolic CHF Heart failure chronicity: acute on chronic Qualified Code(s): I50.33 - Acute on chronic diastolic (congestive) heart failure (2) Acute on chronic respiratory failure Respiratory failure complication: hypoxia Qualified Code(s): J96.21 - Acute and chronic respiratory failure with hypoxia
[2019-07-16] MEDS: VANCOMYCIN HCL 1,500 MG in SODIUM CHLORIDE 0.9% 500 ML IV SCH (16:20)
--- NOTE | 2019-07-16 17:43 | Hospitalist Progress Note ---
Date of Service July 16, 2019 Assessment & Plan (1) Acute on chronic respiratory failure: - Likely component of acute diastolic CHF and possibly caused some hypotension from a cardiogenic nature - however there is slight progression of the basilar consolidation so the possibility of PNA is there - Continue CPAP HS - patient does report some noncompliance over the past few days prior to admission - She has been weaned back to her baseline 4 L NC at this time - reporting breathing is much better but not back to baseline yet - She will be continued on Heparin gtt at this time - discussed some options with patient today as it is hard to confirm that a renally dosed Xarelto would be the best option for her given her weight and limited studies to support utilizing NOACs in this group - should re-discuss as Coumadin may be the safest option as she also carries a dx of PAF - with a high CHADVasc score -- If she agrees to Coumadin would need to begin bridging -- On admission, given the rapid nature of her respiratory compromise there is concern for possible PE however CTA was deferred due to slightly worsened renal function from baseline as well as a VQ scan being nondiagnostic given her chronic conditions/plus inability to perform test adequately due to respiratory compromise - Continue Duonbes; Abx coverage with Ertapenem (2) UTI (urinary tract infection): - UCx with ESBL E. 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 [address] in restricted limb with patient's permission (3) Leukocytosis: - Has a profound leukocytosis of 80 on admission which is improving - she follows with Dr. Shah - There appears to be a component of infectious etiology but possibly a progression of MDS/other - 1 of 2 BCx with gram + cocci in clusters - likely this is a contaminant but given initial presentation and H/O MRSA + will cover with Vanc and repeat BCx (4) Diastolic CHF: - Acute on Chronic; Concern for possible poor forward flow due to venous congestion likely playing a role in hypotension on admission - Will place Lasix 20 mg IV daily and monitor I&Os/daily weights; will tread cautiously to prevent hypotension - Echo - EF 55-60%; no regional wall motion abnormalities; mild LVH (5) PAF (paroxysmal atrial fibrillation): - On evening of 07/14 she was noted to have narrow complex tachycardia with no response to Adenosine; with further rate control an underlying A Fib was noted; appears she does have a H/O PAF - She was initially started on Amiodarone gtt and converted to NSR with rate control; Convert to Amiodarone 200 mg BID and continue to monitor rate/rhythm; anticoagulation as discussed above - Coreg 3.125 mg BID initiated (6) COPD (chronic obstructive pulmonary disease): - No wheezing noted today; unlikely to have an underlying exacerbation (7) Hypertension: - STABLE at this time - Will Hold Losartan at this time given slight Cr increase as well (8) CKD (chronic kidney disease), stage III: - Cr slightly elevated from baseline but improving and currently at 1.3 and will continue to trend- possibly mild MICHI - possibly from volume overload - BMP daily (9) History of pulmonary embolism: - H/O DVT/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 and on Xarelto 15 mg daily - given body habitus and reduced dosing there is question of efficacy for appropriate coverage - treatment as above (10) DVT prophylaxis: - Heparin gtt Disposition: Resident of [facility]; will obtain PT/OT evaluations; likely return to [facility] on D/C Subjective Reports feeling just generally unwell today. No specific symptoms other than achy but states she felt better yesterday. Cough is now becoming a little more productive. She reports her breathing is about the same as yesterday but not worsening. Renal function is improving. HR remains stable and in a NSR. WBC continues to trend down. Remains afebrile. UCx with ESBL E. coli Review of Systems Constitutional: + fatigue; no fever and no chills Respiratory: + cough; no dyspnea Cardiovascular: no chest pain and no palpitations Gastrointestinal: no abdominal pain, no nausea, no vomiting, no constipation and no diarrhea/loose stools Genitourinary: no dysuria Musculoskeletal: + body aches Integumentary: no rash Physical Exam Constitutional: + obese and + frail appearing Eyes: + anicteric sclerae ENMT: Ears: no hearing impairment Neck: trachea midline Respiratory: normal respiratory effort Auscultation: + diminished lung sounds Cardiovascular: Rate/Rhythm: regular rate and regular rhythm Vessels: no JVD Extremities: + edema Gastrointestinal (Abdomen): Inspection/Auscultation: normal bowel sounds Percussion/Palpation: abdomen soft; abdomen nontender Musculoskeletal: Head/Neck/Chest: normocephalic and head atraumatic Skin: chronic venous stasis changes of b/l lower extremities with thickened skin Neurologic: moves all extremities Psychiatric: A+Ox3, euthymic affect Results & Data Vital Signs (Past 12 Hours) Vital Signs Temp Pulse Resp BP Pulse Ox 07/16/19 15:09 66 20 94 07/16/19 12:21 36.3 C L 62 20 123/75 95 07/16/19 11:08 62 19 97 07/16/19 07:08 36.3 C L 62 20 138/78 99 07/16/19 07:00 66 20 97 PG Care Time/CCT Total # of Minutes Spent Total Time Spent with Patient: Total time spent is greater than 50% in coor dination of care (as documented) at patient's floor/unit and/or counseling patient: (1) Acute on chronic respiratory failure Respiratory failure complication: hypoxia Qualified Code(s): J96.21 - Acute and chronic respiratory failure with hypoxia (2) UTI (urinary tract infection) Hematuria presence: without hematuria Urinary tract infection type: site unspecified Qualified Code(s): N39.0 - Urinary tract infection, site not specified (3) Diastolic CHF Heart failure chronicity: acute on chronic Qualified Code(s): I50.33 - Acute on chronic diastolic (congestive) heart failure (4) Hypertension Hypertension type: essential hypertension Qualified Code(s): I10 - Essential (primary) hypertension
[2019-07-16] MEDS: DULOXETINE HCL 30 MG CAP PO SCH (20:13)
[2019-07-16] MEDS: MONTELUKAST SODIUM 10 MG TABLET PO SCH (20:13)
[2019-07-16] MEDS: GABAPENTIN 600 MG TAB PO SCH (20:13)
[2019-07-16] MEDS: ACETAMINOPHEN 500 MG TAB PO SCH (20:15)
[2019-07-17] MEDS: LEVOTHYROXINE SODIUM 50 MCG TABLET PO SCH (06:10)
[2019-07-17 06:30] LABS: Hematocrit (blood only) 27.8 % (37-47); Hemoglobin 8.8 g/dL (12.0-16.0); Mean Corpuscular Hgb Conc 31.7 g/dL (32-36); Mean Corpuscular Volume 105.7 fL (80-100); Mean Platelet Volume 11.7 fL (7.4-10.4); Platelet Count 240 K/uL (130-400); RDW Coefficient of Variation 18.3 % (11.5-14.5); RDW Standard Deviation 69.4 fL (36.4-46.3); Red Blood Count 2.63 M/uL (4.2-5.4); White Blood Count 18.83 K/uL (4.8-10.8)
[2019-07-17 06:37] LABS: Partial Thromboplastin Ratio 0.9
[2019-07-17] MEDS ORDERED: HEPARIN IV BOLUS 7,000 UNITS in SYRINGE 0 ML IV ONE (06:59)
[2019-07-17 07:01] LABS: Calcium 9.2 mg/dl (8.5-10.1); Creatinine Clr Calc Pharmacy 55.5 ml/min; Est GFR (African American) 56.6; Est GFR (Non-African American) 48.8; Potassium 4.2 mmol/L (3.5-5.1)
[2019-07-17] MEDS: HEPARIN SODIUM/DEXTROSE 25,000 UNITS/500 ML BAG IV SCH ×2 (07:05→21:49)
[2019-07-17] MEDS: ALBUT/IPRATROP 3MG/0.5MG NEB 3 ML VIAL NEB SCH ×4 (07:16→19:17)
[2019-07-17] MEDS: MULTIVITAMIN TAB PO SCH (07:50)
[2019-07-17] MEDS: ROPINIROLE HCL 1 MG TABLET PO SCH ×3 (07:51→20:39)
[2019-07-17] MEDS: CHECK FENTANYL PATCH PLACEMENT SCH ×6 (07:51→23:44)
[2019-07-17] MEDS: AMIODARONE 200 MG TAB PO SCH ×2 (07:51→17:16)
[2019-07-17] MEDS: CARVEDILOL 3.125 MG TAB PO SCH ×2 (07:52→20:38)
[2019-07-17] MEDS: DICLOFENAC SOD 1% GEL 100 GM TUBE EXT SCH ×2 (07:52→20:39)
[2019-07-17] MEDS: VANCOMYCIN HCL 1,500 MG in SODIUM CHLORIDE 0.9% 500 ML IV SCH (07:54)
[2019-07-17] MEDS: FUROSEMIDE 20 MG in SYRINGE 0 ML IV SCH (09:35)
--- NOTE | 2019-07-17 09:51 | Cardiology Progress Note ---
Date of Service July 17, 2019 Assessment & Plan (1) Acute on chronic respiratory failure: Likely secondary to pneumonia pneumonia and acute on chronic diastolic CHF. Continue intravenous diuretics and broad-spectrum antibiotics. She has underlying chronic respiratory insufficiency requiring continuous flow oxygen. (2) Diastolic CHF: Likely a component of acute on chronic diastolic CHF. Continue use intravenous diuretics and carvedilol. (3) PAF (paroxysmal atrial fibrillation): The patient carries a history of paroxysmal atrial fibrillation. She converted to sinus rhythm on intravenous amiodarone. Tolerating oral amiodarone without difficulty. Could resume renally adjusted Xarelto. Subjective The patient is resting comfortably in bed complaints of chest discomfort. She does complain of a productive cough. Physical Exam Physical Exam: In general this is a morbidly obese white female lying supine in bed without complaints. HEENT exam is negative. Neck is supple with full carotid upstrokes. No obvious bruits. Jugular venous pressure is difficult to assess. Cardiovascular exam reveals regular rhythm with distant heart sounds. No obvious murmurs. Lungs notes scattered rhonchi but no rales. Breath sounds are distant. Abdomen is obese. Extremities reveal 1+ pitting edema to the knees bilaterally. Results & Data Vital Signs (Past 12 Hours) Vital Signs Temp Pulse Pulse Resp BP Pulse Ox 07/17/19 07:17 58 L 18 96 07/17/19 06:53 36.4 C L 59 L 16 116/54 L 97 07/17/19 04:36 36.5 C 58 L 20 112/68 96 07/17/19 01:28 59 L 19 95 07/16/19 22:51 36.4 C L 61 20 123/63 93 07/16/19 22:12 75 22 92 Diagnostic Findings Telemetry monitorin notes normal sinus rhythm with occasional PACs and PVCs. There is a brief run of an atrial tachycardia yesterday. PG Care Time/CCT Total # of Minutes Spent Total Time Spent with Patient: Total time spent is greater than 50% in coordination of care (as documented) at patient's floor/unit and/or counseling patient: (1) Diastolic CHF Heart failure chronicity: acute on chronic Qualified Code(s): I50.33 - Acute on chronic diastolic (congestive) heart failure (2) Acute on chronic respiratory failure Respiratory failure complication: hypoxia Qualified Code(s): J96.21 - Acute and chronic respiratory failure with hypoxia
[2019-07-17] MEDS: ERTAPENEM SODIUM 1,000 MG in SODIUM CHLORIDE 0.9% 50 ML IV SCH (12:01)
[2019-07-17] MEDS: DOCUSATE SODIUM 100 MG CAP PO SCH ×2 (12:02→21:41)
--- NOTE | 2019-07-17 14:28 | Infectious Disease Progress Nt ---
Date of Service July 17, 2019 Assessment & Plan (1) Pneumonia: Patient admitted with sepsis and pneumonia, now slowly improving. Also with ESBL producing E. coli urinary tract infection. Patient will continue on ertapenem to complete 10 days of therapy. (2) Sepsis associated hypotension: (3) UTI (urinary tract infection): Subjective The patient is resting comfortably in bed complaints of chest discomfort. She does complain of a productive cough. Review of Systems Review of Systems: All systems reviewed & are unremarkable except as noted in HPI & below Physical Exam Constitutional: WD/WN, vitals as above + obese; no acute distress Eyes: PERRL, conjunctivae normal, anicteric sclerae ENMT: external ear and nose normal, oropharynx normal Neck: trachea midline, no thyromegaly neck nontender Respiratory: normal respiratory effort and normal percussion; no respiratory distress and does not use accessory muscles Auscultation: + wheezes Cardiovascular: Rate/Rhythm: regular rate and regular rhythm Heart Sounds: normal S1 and normal S2; no gallop, no murmur and no cardiac rub Vessels: normal peripheral pulses; no JVD Gastrointestinal (Abdomen): normal bowel sounds, soft, nontender, no hepatosplenomegaly Musculoskeletal: no cyanosis or clubbing, extremities motor strength 5/5 Spine: thoracic spine normal to inspection and lumbar spine normal to inspection; no cervical spinal tenderness Skin: no rashes, warm and dry normal turgor; no lesions Neurologic: patellar DTR's 2+ bilat, sensation intact no focal motor deficits Psychiatric: A+Ox3, euthymic affect Orientation: cooperative Lymphatic: no cervical or axillary lymphadenopathy no inguinal lymphadenopathy Results & Data Vital Signs (Past 12 Hours) Vital Signs Temp Pulse Resp BP Pulse Ox 07/17/19 11:55 36.4 C L 75 20 114/52 L 94 07/17/19 11:08 64 18 97 07/17/19 07:17 58 L 18 96 07/17/19 06:53 36.4 C L 59 L 16 116/54 L 97 07/17/19 04:36 36.5 C 58 L 20 112/68 96 Laboratory Results Short CBC 07/17/19 Range/Units 05:58 WBC 18.83 H D (4.8-10.8) K/uL Hgb 8.8 L (12.0-16.0) g/dL Hct 27.8 L (37-47) % Plt Count 240 (130-400) K/uL BMP 07/17/19 05:58 Sodium 142 Potassium 4.2 Chloride 108 H Carbon Dioxide 33 H BUN 40 H Creatinine 1.03 Glucose 93 Calcium 9.2 Diagnostic Findings Microbiology 07/14/19 08:30 Sputum, Expectorated Gram Stain - Final 07/14/19 08:30 Sputum, Expectorated Sputum Culture - Final Light normal michelle. 07/14/19 12:07 Blood Aerobic Blood Culture - Preliminary Coag negative Staphylococcus 07/14/19 12:07 Blood Anaerobic Blood Culture - Preliminary No growth in Anaerobic bottle after 48 hours. 07/16/19 06:48 Blood Aerobic Blood Culture - Preliminary No growth in Aerobic bottle after 24 hours. 07/16/19 06:48 Blood Anaerobic Blood Culture - Preliminary No growth in Anaerobic bottle after 24 hours. 07/16/19 06:38 Blood Aerobic Blood Culture - Preliminary No growth in Aerobic bottle after 24 hours. 07/16/19 06:38 Blood Anaerobic Blood Culture - Preliminary No growth in Anaerobic bottle after 24 hours. 07/14/19 12:28 Blood Aerobic Blood Culture - Preliminary No growth in Aerobic bottle after 48 hours. 07/14/19 12:28 Blood Anaerobic Blood Culture - Preliminary No growth in Anaerobic bottle after 48 hours. 07/14/19 12:30 Urine,Straight Cath Urine Culture - Final Escherichia coli ESBL PG Care Time/CCT Total # of Minutes Spent Total Time Spent with Patient: Total time spent is greater than 50% in coordination of care (as documented) at patient's floor/unit and/or counseling patient: (1) Pneumonia Laterality: unspecified laterality Lung location: unspecified part of lung Pneumonia type: due to unspecified organism Qualified Code(s): J18.9 - Pneumonia, unspecified organism (2) UTI (urinary tract infection) Hematuria presence: without hematuria Urinary tract infection type: site unspecified Qualified Code(s): N39.0 - Urinary tract infection, site not specified
[2019-07-17 14:54] LABS: Partial Thromboplastin Ratio 2.1
[2019-07-17 15:09] LABS: Partial Thromboplastin Time 56.3 Seconds (21.0-31.0)
[2019-07-17] MEDS: ACETAMINOPHEN 325 MG TAB PO PRN (19:55)
[2019-07-17] MEDS: GABAPENTIN 600 MG TAB PO SCH (20:38)
[2019-07-17] MEDS: FLUTICASONE/SALMETEROL (ADVAIR) 500/50 INH 14 PUFF INH SCH (20:38)
[2019-07-17] MEDS: DULOXETINE HCL 30 MG CAP PO SCH (20:38)
[2019-07-17] MEDS: MONTELUKAST SODIUM 10 MG TABLET PO SCH (20:39)
[2019-07-17] MEDS: ACETAMINOPHEN 500 MG TAB PO SCH (21:41)
--- NOTE | 2019-07-17 23:17 | Hospitalist Progress Note ---
Date of Service July 17, 2019 Assessment & Plan (1) Acute on chronic respiratory failure: - Likely component of acute diastolic CHF and possibly caused some hypotension from a cardiogenic nature - however there is slight progression of the basilar consolidation so the possibility of PNA is there certainly with productive cough, brown sputum makes pneumonia more likely - Continue CPAP HS - patient does report some noncompliance over the past few days prior to admission - She has been weaned back to her baseline 4 L NC at this time - breathing is close to baseline, no distress today - She will be continued on Heparin gtt at this time - discussed some options with patient today as it is hard to confirm that a renally dosed Xarelto would be the best option for her given her weight and limited studies to support utilizing NOACs in this group - should re-discuss as Coumadin may be the safest option as she also carries a dx of PAF - with a high CHADVasc score -- If she agrees to Coumadin would need to begin bridging -- On admission, given the rapid nature of her respiratory compromise there is concern for possible PE however CTA was deferred due to slightly worsened renal function from baseline as well as a VQ scan being nondiagnostic given her chronic conditions/plus inability to perform test adequately due to respiratory compromise Cr is back to baseline but patient is getting better, no need for CT chest continue Ertapenem for PNA (2) UTI (urinary tract infection): - UCx with ESBL E. 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 [address] line in restricted limb with patient's permission (3) Leukocytosis: - Has a profound leukocytosis of 80 on admission which is improving - she follows with Dr. Shah - There appears to be a component of infectious etiology but possibly a progression of MDS/other - 1 of 2 BCx with coag neg staph likely this is a contaminant repeat blood cx with no growth (4) Diastolic CHF: - Acute on Chronic; Concern for possible poor forward flow due to venous congestion likely playing a role in hypotension on admission - Will place Lasix 20 mg IV daily and monitor I&Os/daily weights; will tread cautiously to prevent hypotension - Echo - EF 55-60%; no regional wall motion abnormalities; mild LVH examines euvolemic today (5) PAF (paroxysmal atrial fibrillation): - On evening of 07/14 she was noted to have narrow complex tachycardia with no response to Adenosine; with further rate control an underlying A Fib was noted; appears she does have a H/O PAF - She was initially started on Amiodarone gtt and converted to NSR with rate control; Convert to Amiodarone 200 mg BID and continue to monitor rate/rhythm; anticoagulation as discussed above - Coreg 3.125 mg BID initiated (6) COPD (chronic obstructive pulmonary disease): - No wheezing noted today; unlikely to have an underlying exacerbation (7) Hypertension: - STABLE at this time - Will Hold Losartan at this time given slight Cr increase as well (8) CKD (chronic kidney disease), stage III: - Cr slightly elevated from baseline but improving and currently at 1.0 and will continue to trend- possibly mild MICHI - possibly from volume overload - BMP daily (9) History of pulmonary embolism: - H/O DVT/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 and on Xarelto 15 mg daily - given body habitus and reduced dosing there is question of efficacy for appropriate coverage - treatment as above plan for hep drip and start on Coumadin (10) DVT prophylaxis: - Heparin gtt Disposition: Resident of [facility]; will obtain PT/OT evaluations; likely return to [facility] on D/C Subjective patient sitting up in chair this morning says that her breathing continues to improve every day she is coughing up thick, brown sputum, no blood seen appetite is improving no pain reviewed labs, WBC down to 18 from 35 Hb is stable, Cr is 1.0 Review of Systems Review of Systems: All systems reviewed & are unremarkable except as noted in HPI & below Constitutional: no fever Respiratory: + cough, + dyspnea and + sputum production (brown, thick) Cardiovascular: no chest pain and no edema Physical Exam Constitutional: WD/WN, vitals as above + morbidly obese Eyes: PERRL, conjunctivae normal, anicteric sclerae ENMT: external ear and nose normal, oropharynx normal Neck: trachea midline, no thyromegaly Respiratory: normal respiratory effort; no respiratory distress Auscultation: + rhonchi and + wheezes; no crackles and no rales Cardiovascular: RRR, no murmur, no edema Gastrointestinal (Abdomen): normal bowel sounds, soft, nontender, no hepatosplenomegaly Musculoskeletal: no cyanosis or clubbing, extremities motor strength 5/5 Skin: no rashes, warm and dry Neurologic: patellar DTR's 2+ bilat, sensation intact and PERRL, EOMI, accommodation nl, no face palsy, no dysarthria Psychiatric: A+Ox3, euthymic affect Lymphatic: no cervical or axillary lymphadenopathy Results & Data Vital Signs (Past 12 Hours) Vital Signs Temp Pulse Pulse Resp BP Pulse Ox 07/17/19 23:07 36.7 C 70 20 107/51 L 94 07/17/19 21:58 87 21 93 07/17/19 19:53 36.3 C L 79 20 138/79 91 07/17/19 19:20 94 H 18 89 L 07/17/19 18:00 36.9 C 20 135/74 93 07/17/19 15:24 36.8 C 62 22 141/69 H 92 07/17/19 15:22 74 18 91 07/17/19 11:55 36.4 C L 75 20 114/52 L 94 Laboratory Results Laboratory Results - last 24 hr 07/17/19 07/17/19 07/17/19 05:58 05:58 05:58 WBC 18.83 H D RBC 2.63 L Hgb 8.8 L Hct 27.8 L MCV 105.7 H MCH 33.5 MCHC 31.7 L RDW Std Deviation 69.4 H RDW Coeff of Marta 18.3 H Plt Count 240 MPV 11.7 H APTT 25.0 PTT Ratio 0.9 Sodium 142 Potassium 4.2 Chloride 108 H Carbon Dioxide 33 H Anion Gap 1.0 L BUN 40 H Creatinine 1.03 Est Cr Clr Drug Dosing 55.5 Est GFR ( Amer) 56.6 Est GFR (Non-Af Amer) 48.8 BUN/Creatinine Ratio 39.0 H Glucose 93 Calcium 9.2 07/17/19 14:05 WBC RBC Hgb Hct MCV MCH MCHC RDW Std Deviation RDW Coeff of Marta Plt Count MPV APTT 56.3 H* PTT Ratio 2.1 Sodium Potassium Chloride Carbon Dioxide Anion Gap BUN Creatinine Est Cr Clr Drug Dosing Est GFR ( Amer) Est GFR (Non-Af Amer) BUN/Creatinine Ratio Glucose Calcium Medications Administered Current Inpatient Medications Acetaminophen (Tylenol) 1,000 mg PO HS [facility]IN Stop: 08/13/19 20:59 Last Admin: 07/17/19 21:41 Dose: 1,000 mg Documented by: Acetaminophen (Tylenol) 650 mg PO Q4H PRN PRN Reason: Pain or Fever Stop: 08/13/19 15:55 Last Admin: 07/17/19 19:55 Dose: 650 mg Documented by: Al Hydrox/Mg Hydrox/Simethicone (Maalox) 15 ml PO Q4H PRN PRN Reason: Dyspepsia Stop: 08/13/19 15:55 Albuterol (Duoneb) 3 ml NEB QIDR [facility] Stop: 08/13/19 16:59 Last Admin: 07/17/19 19:17 Dose: 3 ml Documented by: Amiodarone HCl (Cordarone) 200 mg PO BIDM [facility] Stop: 08/14/19 17:09 Last Admin: 07/17/19 17:16 Dose: 200 mg Documented by: Artificial Tears (Artificial Tears) 2 drops OP Q4H PRN PRN Reason: Allergy Symptoms Stop: 08/15/19 12:22 Carvedilol (Coreg) 3.125 mg PO BID [facility] Stop: 08/14/19 20:59 Last Admin: 07/17/19 20:38 Dose: 3.125 mg Documented by: Diclofenac Sodium (Voltaren 1% Top) 2 appln EXT BID [facility] Stop: 08/13/19 20:59 Last Admin: 07/17/19 20:39 Dose: 2 appln Documented by: Docusate Sodium (Colace) 100 mg PO BID [facility] Stop: 08/13/19 20:59 Last Admin: 07/17/19 21:41 Dose: 100 mg Documented by: Duloxetine HCl (Cymbalta) 30 mg PO HS [facility] Stop: 08/13/19 20:59 Last Admin: 07/17/19 20:38 Dose: 30 mg Documented by: Fentanyl (Duragesic) 25 mcg TD Q72H [facility] Stop: 07/30/19 08:59 Last Admin: 07/16/19 08:17 Dose: 25 mcg Documented by: Fentanyl (Duragesic) 12 mcg TD Q3D@0900 [facility] Stop: 07/30/19 08:59 Last Admin: 07/16/19 08:17 Dose: 12 mcg Documented by: Fluticasone Propionate (Flonase) 2 sprays TEOFILO DAILY [facility] Stop: 08/14/19 08:59 Last Admin: 07/15/19 08:44 Dose: 2 sprays Documented by: Gabapentin (Neurontin) 200 mg PO BID@0830,1630 [facility] Stop: 08/13/19 16:59 Last Admin: 07/14/19 17:27 Dose: Not Given Documented by: Gabapentin (Neurontin) 600 mg PO HS [facility] Stop: 08/13/19 20:59 Last Admin: 07/17/19 20:38 Dose: 600 mg Documented by: Heparin Sodium/Dextrose (Heparin Sodium/Dextrose) 25,000 units in 500 mls @ 33 mls/hr IV .[id number] [facility]; Protocol Stop: 08/13/19 19:59 Last Admin: 07/17/19 21:49 Dose: 1,650 units/hr, 33 mls/hr Documented by: Ertapenem 1,000 mg/ Sodium (Chloride) 60 mls @ 100 mls/hr IV Q24H [facility] Stop: 07/25/19 10:59 Last Infusion: 07/17/19 12:37 Dose: Infused Documented by: Furosemide 20 mg/ Syringe 2 mls @ 4 mls/min IV DAILY [facility] Stop: 08/15/19 08:59 Last Admin: 07/17/19 09:35 Dose: 4 mls/min Documented by: Vancomycin HCl 1,500 mg/ (Sodium Chloride) 530 mls @ 200 mls/hr IV Q18H [facility] Stop: 07/30/19 13:59 Last Infusion: 07/17/19 10:33 Dose: Infused Documented by: Levothyroxine Sodium (Synthroid) 50 mcg PO DAILYBB [facility] Stop: 08/14/19 06:29 Last Admin: 07/17/19 06:10 Dose: 50 mcg Documented by: Magnesium Hydroxide (Milk Of Magnesia) 30 ml PO Q12H PRN PRN Reason: Constipation Stop: 08/13/19 15:55 Miscellaneous (Fentanyl Patch Remove & Waste) 1 ea N/A Q72H [facility] Stop: 08/18/19 08:58 Miscellaneous (Fentanyl Patch Check Placement) 1 ea N/A QS [facility] Stop: 08/15/19 15:59 Last Admin: 07/17/19 17:16 Dose: 1 ea Documented by: Miscellaneous (Fentanyl Patch Remove & Waste) 1 ea N/A Q72H [facility] Stop: 08/18/19 08:58 Miscellaneous (Fentanyl Patch Check Placement) 1 ea N/A QS [facility] Stop: 08/15/19 15:59 Last Admin: 07/17/19 17:16 Dose: 1 ea Documented by: Miscellaneous Information (Consult) 1 ea N/A UD PRN PRN Reason: Consult Stop: 08/14/19 18:04 Montelukast Sodium (Singulair) 10 mg PO PM [facility] Stop: 08/13/19 20:59 Last Admin: 07/17/19 20:39 Dose: 10 mg Documented by: Multivitamins (Multivitamin Tab) 1 tab PO QAM [facility] Stop: 08/14/19 08:59 Last Admin: 07/17/19 07:50 Dose: 1 tab Documented by: Oxycodone HCl (Roxicodone Immediate Rel) 5 mg PO QAM PRN PRN Reason: Moderate Stop: 07/28/19 15:55 Last Admin: 07/17/19 01:50 Dose: 5 mg Documented by: Polyethylene Glycol (Miralax Powder Packet) 17 gm PO DAILY PRN PRN Reason: Constipation Stop: 08/13/19 15:55 Ropinirole HCl (Requip) 1 mg PO TID [facility] Stop: 08/13/19 20:59 Last Admin: 07/17/19 20:39 Dose: 1 mg Documented by: Fluticasone/Salmeterol (Advair Diskus 500/50) 1 puffs INH BID [facility] Stop: 08/13/19 20:59 Last Admin: 07/17/19 20:38 Dose: 1 puffs Documented by: Tiotropium [place] (Spiriva) 1 puffs INH QAM [facility] Stop: 08/14/19 08:59 PG Care Time/CCT Total # of Minutes Spent Total Time Spent with Patient: Total time spent is greater than 50% in coordination of care (as documented) at patient's floor/unit and/or counseling patient: (1) Acute on chronic respiratory failure Respiratory failure complication: hypoxia Qualified Code(s): J96.21 - Acute and chronic respiratory failure with hypoxia (2) UTI (urinary tract infection) Hematuria presence: without hematuria Urinary tract infection type: site unspecified Qualified Code(s): N39.0 - Urinary tract infection, site not specified (3) Diastolic CHF Heart failure chronicity: acute on chronic Qualified Code(s): I50.33 - Acute on chronic diastolic (congestive) heart failure (4) Hypertension Hypertension type: essential hypertension Qualified Code(s): I10 - Essential (primary) hypertension
[2019-07-18] MEDS ORDERED: VANCOMYCIN TROUGH ONE (01:30)
[2019-07-18] MEDS: VANCOMYCIN HCL 1,500 MG in SODIUM CHLORIDE 0.9% 500 ML IV SCH (02:38)
[2019-07-18] MEDS: ACETAMINOPHEN 325 MG TAB PO PRN (03:36)
[2019-07-18] MEDS ORDERED: MoRPHine SULFATE 2 MG/ML CARP IV STA (05:14)
[2019-07-18] MEDS ORDERED: MoRPHine SULFATE 2 MG/ML CARP ONE (05:25)
[2019-07-18] MEDS: LEVOTHYROXINE SODIUM 50 MCG TABLET PO SCH (05:27)
[2019-07-18] MEDS: ROPINIROLE HCL 1 MG TABLET PO SCH ×4 (05:52→21:00)
[2019-07-18 06:39] LABS: Partial Thromboplastin Ratio 1.7
[2019-07-18] MEDS: ALBUT/IPRATROP 3MG/0.5MG NEB 3 ML VIAL NEB SCH ×4 (06:55→18:52)
[2019-07-18] MEDS: AMIODARONE 200 MG TAB PO SCH ×2 (08:32→16:33)
[2019-07-18] MEDS: CHECK FENTANYL PATCH PLACEMENT SCH ×4 (08:32→16:02)
[2019-07-18] MEDS: MULTIVITAMIN TAB PO SCH (08:32)
[2019-07-18] MEDS: DICLOFENAC SOD 1% GEL 100 GM TUBE EXT SCH ×2 (08:33→21:00)
[2019-07-18] MEDS: FLUTICASONE/SALMETEROL (ADVAIR) 500/50 INH 14 PUFF INH SCH ×2 (08:38→20:59)
[2019-07-18] MEDS: FLUTICASONE PROPIONATE NA SPR 16 GM BTL NAE SCH (08:38)
[2019-07-18] MEDS: FUROSEMIDE 20 MG in SYRINGE 0 ML IV SCH (09:48)
[2019-07-18] MEDS: DOCUSATE SODIUM 100 MG CAP PO SCH ×2 (09:48→21:06)
[2019-07-18] MEDS: GABAPENTIN 100 MG CAP PO SCH ×2 (09:48→16:33)
[2019-07-18] MEDS: TIOTROPIUM BROMIDE 5 PUFF/90 MCG INH INH SCH (09:49)
--- NOTE | 2019-07-18 10:25 | Pharmacy Report ---
Pharmacy Abx Dose Progress Nt - Date of Service July 18, 2019 - Pharmacy Dosing Scope The patient is currently receiving the following antimicrobial agents per Pharmacy consult: Vancomycin 1500 mg IV every 18 hours Patient also receiving Ertapenem 1g IV Q 24H - Objective Vital Signs (Past 12hrs): Vital Signs Temp Pulse Pulse Resp BP Pulse Ox 07/18/19 07:45 36.6 C 68 20 134/64 95 07/18/19 06:55 63 18 98 07/18/19 05:05 77 146/69 H 07/17/19 23:07 36.7 C 70 20 107/51 L 94 Lab Results (24hrs): Laboratory Tests (24 Hours) 07/18/19 01:22 Vancomycin Trough 23.5 Micro Results: 07/14/19 08:30 Gram Stain - Final Sputum, Expectorated Sputum Culture - Final Light normal michelle. 07/14/19 12:30 Urine Culture - Final Urine,Straight Cath Escherichia coli ESBL Laboratory Tests 07/14/19 17:52 Nasal Screen MRSA (PCR) Positive A Microbiology 07/16/19 06:48 Blood Aerobic Blood Culture - Preliminary 07/16/19 06:48 Blood Anaerobic Blood Culture - Preliminary No growth in Aerobic bottle after 48 hours. No growth in Anaerobic bottle after 48 hours. 07/16/19 06:38 Blood Aerobic Blood Culture - Preliminary 07/16/19 06:38 Blood Anaerobic Blood Culture - Preliminary No growth in Aerobic bottle after 48 hours. No growth in Anaerobic bottle after 48 hours. 07/14/19 12:07 Blood Aerobic Blood Culture - Preliminary 07/14/19 12:07 Blood Anaerobic Blood Culture - Preliminary Coag negative Staphylococcus No growth in Anaerobic bottle after 48 hours. Laboratory Tests 07/14/19 07/14/19 12:07 15:10 Influenza Type A (PCR) Neg for Influ A Influenza Type B (PCR) Neg for Influ B Bld Cult Staph aureus PCR Negative Blood Culture MRSA PCR Negative - Assessment & Plan Assessment 88 year old F receiving IV Vancomycin and Ertapenem for treatment of bacteremia and Ecoli ESBL UTI, possible pneumonia. Nasal swab MRSA +, blood screenings negative for staph aureus. Most recent blood cultures have no growth, coag neg staph in 1/2 in first set of blood cultures on 07/14. Day # 5 of Vancomycin, day #4 Ertapenem. ID Consult. Plan Vancomycin IV * Trough level of 23.5 mcg/mL is supratherapeutic, accumulation in obese pat ient despite using lower dose * Change to 1500 mg (11mg/kg) IV every 24 hours * Goal trough level for bacteremia : 15 to 20 mcg/mL * Trough level ordered for: 07/20/19 (this will be only after 2 doses at new dosing interval, but want to check early to ensure no further accumulation and avoid toxicity). Ertapenem 1g IV Q24H - pt requires 10 days to complete therapy for EColi ESBL UTI Pharmacy will continue to follow and will adjust dose/frequency as necessary. Thank you.
[2019-07-18] MEDS: CARVEDILOL 3.125 MG TAB PO SCH ×2 (12:08→20:59)
[2019-07-18] MEDS: ERTAPENEM SODIUM 1,000 MG in SODIUM CHLORIDE 0.9% 50 ML IV SCH (12:33)
[2019-07-18 12:48] LABS: INR 1.1 (0.9-1.1); Prothrombin Time 10.8 Seconds (9.0-12.0)
[2019-07-18] MEDS ORDERED: WARFARIN SOD 10 MG TAB PO ONE (13:15)
[2019-07-18] MEDS ORDERED: clonazePAM 1 MG TAB PO STA (14:16)
--- NOTE | 2019-07-18 15:20 | Hospitalist Progress Note ---
Date of Service July 18, 2019 Assessment & Plan (1) Sepsis: present on arrival resolved with Ertapenem, treating UTI and pneumonia (2) Acute on chronic respiratory failure: - Likely component of acute diastolic CHF and possibly caused some hypot ension from a cardiogenic nature - however there is slight progression of the basilar consolidation so the possibility of PNA is there certainly with productive cough, brown sputum makes pneumonia more likely - Continue CPAP HS - patient does report some noncompliance over the past few days prior to admission - She has been weaned back to her baseline 4 L NC at this time - breathing at baseline - She will be continued on Heparin gtt at this time - start Coumadin today, 10mg -- On admission, given the rapid nature of her respiratory compromise there is concern for possible PE however CTA was deferred due to slightly worsened renal function from baseline as well as a VQ scan being nondiagnostic given her chronic conditions/plus inability to perform test adequately due to respiratory compromise Cr is back to baseline but patient is getting better, no need for CT chest continue Ertapenem for PNA, will complete 7 days total while here (3) UTI (urinary tract infection): - UCx with ESBL E. 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 [address] line in restricted limb with patient's permission (4) Leukocytosis: - Has a profound leukocytosis of 80 on admission which is improving - she follows with Dr. Shah - There appears to be a component of infectious etiology but possibly a progression of MDS/other - 1 of 2 BCx with coag neg staph likely this is a contaminant repeat blood cx with no growth repeat CBC tomorrow (5) Diastolic CHF: - Acute on Chronic; Concern for possible poor forward flow due to venous congestion likely playing a role in hypotension on admission - Will place Lasix 20 mg IV daily and monitor I&Os/daily weights - Echo - EF 55-60%; no regional wall motion abnormalities; mild LVH examines euvolemic today resume Lasix 20mg PO on discharge (6) PAF (paroxysmal atrial fibrillation): - On evening of 07/14 she was noted to have narrow complex tachycardia with no response to Adenosine; with further rate control an underlying A Fib was noted; appears she does have a H/O PAF - She was initially started on Amiodarone gtt and converted to NSR with rate control; Convert to Amiodarone 200 mg BID and continue to monitor rate/rhythm; anticoagulation as discussed above, Coumadin - Coreg 3.125 mg BID initiated (7) COPD (chronic obstructive pulmonary disease): - No wheezing noted today; unlikely to have an underlying exacerbation (8) Hypertension: - STABLE at this time - Will Hold Losartan at this time given slight Cr increase as well (9) CKD (chronic kidney disease), stage III: - Cr slightly elevated from baseline but improving and currently at 1.0 and will continue to trend- possibly mild MICHI - possibly from volume overload - BMP daily (10) History of pulmonary embolism: - H/O DVT/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 and on Xarelto 15 mg daily - given body habitus and reduced dosing there is question of efficacy for appropriate coverage - treatment as above plan for hep drip and start on Coumadin (11) DVT prophylaxis: - Heparin gtt Disposition: Resident of [facility]; will obtain PT/OT evaluations; likely return to [facility] on D/C Subjective patient breathing well today, still with cough and brown sputum but less frequent no wheezing, no fever eating well c/o restless legs in the afternoon despite her scheduled Requip will give a dose of Klonopin, talked with RN reviewed labs, stable will start on Coumadin updated family at the bedside Review of Systems Review of Systems: All systems reviewed & are unremarkable except as noted in HPI & below Constitutional: + fatigue and + weakness; no fever Respiratory: + cough, + dyspnea and + sputum production Cardiovascular: no chest pain Neurologic: + abnormal movements (restless legs) Physical Exam Constitutional: WD/WN, vitals as above + morbidly obese Eyes: PERRL, conjunctivae normal, anicteric sclerae ENMT: external ear and nose normal, oropharynx normal Neck: trachea midline, no thyromegaly Respiratory: normal respiratory effort; no respiratory distress Auscultation: + rhonchi; no crackles and no rales Cardiovascular: RRR, no murmur, no edema Gastrointestinal (Abdomen): normal bowel sounds, soft, nontender, no hepatosplenomegaly Musculoskeletal: no cyanosis or clubbing, extremities motor strength 5/5 Skin: no rashes, warm and dry Neurologic: patellar DTR's 2+ bilat, sensation intact and PERRL, EOMI, accommodation nl, no face palsy, no dysarthria Psychiatric: A+Ox3, euthymic affect Lymphatic: no cervical or axillary lymphadenopathy Results & Data Vital Signs (Past 12 Hours) Vital Signs Temp Pulse Resp BP Pulse Ox 07/18/19 14:53 36.5 C 70 20 142/77 H 96 07/18/19 11:30 73 18 07/18/19 11:00 66 119/58 L 96 07/18/19 07:45 36.6 C 68 20 134/64 95 07/18/19 06:55 63 18 98 07/18/19 05:05 77 146/69 H Laboratory Results Laboratory Results - last 24 hr 07/18/19 07/18/19 07/18/19 01:22 05:57 05:57 PT 10.8 INR 1.1 APTT 47.0 H* PTT Ratio 1.7 Vancomycin Trough 23.5 Medications Administered Current Inpatient Medications Acetaminophen (Tylenol) 1,000 mg PO HS [facility] Stop: 08/13/19 20:59 Last Admin: 07/17/19 21:41 Dose: 1,000 mg Documented by: Acetaminophen (Tylenol) 650 mg PO Q4H PRN PRN Reason: Pain or Fever Stop: 08/13/19 15:55 Last Admin: 07/18/19 03:36 Dose: 650 mg Documented by: Al Hydrox/Mg Hydrox/Simethicone (Maalox) 15 ml PO Q4H PRN PRN Reason: Dyspepsia Stop: 08/13/19 15:55 Albuterol (Duoneb) 3 ml NEB QIDR [facility] Stop: 08/13/19 16:59 Last Admin: 07/18/19 11:30 Dose: 3 ml Documented by: Amiodarone HCl (Cordarone) 200 mg PO BIDM [facility] Stop: 08/14/19 17:09 Last Admin: 07/18/19 08:32 Dose: 200 mg Documented by: Artificial Tears (Artificial Tears) 2 drops OP Q4H PRN PRN Reason: Allergy Symptoms Stop: 08/15/19 12:22 Carvedilol (Coreg) 3.125 mg PO BID [facility] Stop: 08/14/19 20:59 Last Admin: 07/18/19 12:08 Dose: 3.125 mg Documented by: Diclofenac Sodium (Voltaren 1% Top) 2 appln EXT BID [facility] Stop: 08/13/19 20:59 Last Admin: 07/18/19 08:33 Dose: 2 appln Documented by: Docusate Sodium (Colace) 100 mg PO BID [facility] Stop: 08/13/19 20:59 Last Admin: 07/18/19 09:48 Dose: 100 mg Documented by: Duloxetine HCl (Cymbalta) 30 mg PO [facility] Stop: 08/13/19 20:59 Last Admin: 07/17/19 20:38 Dose: 30 mg Documented by: Fentanyl (Duragesic) 25 mcg TD Q72H [facility] Stop: 07/30/19 08:59 Last Admin: 07/16/19 08:17 Dose: 25 mcg Documented by: Fentanyl (Duragesic) 12 mcg TD Q3D@0900 [facility] Stop: 07/30/19 08:59 Last Admin: 07/16/19 08:17 Dose: 12 mcg Documented by: Fluticasone Propionate (Flonase) 2 sprays TEOFILO DAILY [facility] Stop: 08/14/19 08:59 Last Admin: 07/18/19 08:38 Dose: 2 sprays Documented by: Gabapentin (Neurontin) 200 mg PO BID@0830,1630 [facility] Stop: 08/13/19 16:59 Last Admin: 07/18/19 09:48 Dose: 200 mg Documented by: Gabapentin (Neurontin) 600 mg PO [facility] Stop: 08/13/19 20:59 Last Admin: 07/17/19 20:38 Dose: 600 mg Documented by: Heparin Sodium/Dextrose (Heparin Sodium/Dextrose) 25,000 units in 500 mls @ 33 mls/hr IV .[id number] [facility]; Protocol Stop: 08/13/19 19:59 Last Titration: 07/18/19 07:21 Dose: 1,650 units/hr, 33 mls/hr Documented by: Ertapenem 1,000 mg/ Sodium (Chloride) 60 mls @ 100 mls/hr IV Q24H [facility] Stop: 07/25/19 10:59 Last Infusion: 07/18/19 13:26 Dose: Infused Documented by: Furosemide 20 mg/ Syringe 2 mls @ 4 mls/min IV DAILY [facility] Stop: 08/15/19 08:59 Last Admin: 07/18/19 09:48 Dose: 4 mls/min Documented by: Vancomycin HCl 1,500 mg/ (Sodium Chloride) 530 mls @ 200 mls/hr IV Q24H [facility] Stop: 08/02/19 01:59 Levothyroxine Sodium (Synthroid) 50 mcg PO DAILYBB [facility] Stop: 08/14/19 06:29 Last Admin: 07/18/19 05:27 Dose: 50 mcg Documented by: Magnesium Hydroxide (Milk Of Magnesia) 30 ml PO Q12H PRN PRN Reason: Constipation Stop: 08/13/19 15:55 Miscellaneous (Fentanyl Patch Remove & Waste) 1 ea N/A Q72H [facility] Stop: 08/18/19 08:58 Miscellaneous (Fentanyl Patch Check Placement) 1 ea N/A QS [facility] Stop: 08/15/19 15:59 Last Admin: 07/18/19 08:32 Dose: 1 ea Documented by: Miscellaneous (Fentanyl Patch Remove & Waste) 1 ea N/A Q72H [facility] Stop: 08/18/19 08:58 Miscellaneous (Fentanyl Patch Check Placement) 1 ea N/A QS [facility] Stop: 08/15/19 15:59 Last Admin: 07/18/19 08:32 Dose: 1 ea Documented by: Miscellaneous Information (Consult) 1 ea N/A UD PRN PRN Reason: Consult Stop: 08/14/19 18:04 Montelukast Sodium (Singulair) 10 mg PO PM [facility] Stop: 08/13/19 20:59 Last Admin: 07/17/19 20:39 Dose: 10 mg Documented by: Multivitamins (Multivitamin Tab) 1 tab PO QAM [facility] Stop: 08/14/19 08:59 Last Admin: 07/18/19 08:32 Dose: 1 tab Documented by: Oxycodone HCl (Roxicodone Immediate Rel) 5 mg PO QAM PRN PRN Reason: Moderate Stop: 07/28/19 15:55 Last Admin: 07/17/19 01:50 Dose: 5 mg Documented by: Polyethylene Glycol (Miralax Powder Packet) 17 gm PO DAILY PRN PRN Reason: Constipation Stop: 08/13/19 15:55 Ropinirole HCl (Requip) 1 mg PO QID [facility] Stop: 08/17/19 16:59 Fluticasone/Salmeterol (Advair Diskus 500/50) 1 puffs INH BID [facility] Stop: 08/13/19 20:59 Last Admin: 07/18/19 08:38 Dose: 1 puffs Documented by: Tiotropium [place] (Spiriva) 1 puffs INH QAM [facility] Stop: 08/14/19 08:59 Last Admin: 07/18/19 09:49 Dose: 1 puffs Documented by: PG Care Time/CCT Total # of Minutes Spent Total Time Spent with Patient: Total time spent is greater than 50% in coordination of care (as documented) at patient's floor/unit and/or counseling patient: (1) Acute on chronic respiratory failure Respiratory failure complication: hypoxia Qualified Code(s): J96.21 - Acute and chronic respiratory failure with hypoxia (2) UTI (urinary tract infection) Hematuria presence: without hematuria Urinary tract infection type: site unspecified Qualified Code(s): N39.0 - Urinary tract infection, site not specified (3) Diastolic CHF Heart failure chronicity: acute on chronic Qualified Code(s): I50.33 - Acute on chronic diastolic (congestive) heart failure (4) Hypertension Hypertension type: essential hypertension Qualified Code(s): I10 - Essential (primary) hypertension
[2019-07-18] MEDS: HEPARIN SODIUM/DEXTROSE 25,000 UNITS/500 ML BAG IV SCH (16:01)
[2019-07-18] MEDS: MONTELUKAST SODIUM 10 MG TABLET PO SCH (21:00)
[2019-07-18] MEDS: DULOXETINE HCL 30 MG CAP PO SCH (21:00)
[2019-07-18] MEDS: GABAPENTIN 600 MG TAB PO SCH (21:00)
[2019-07-18] MEDS: ACETAMINOPHEN 500 MG TAB PO SCH (21:06)
[2019-07-19] MEDS: CHECK FENTANYL PATCH PLACEMENT SCH ×8 (00:08→23:52)
[2019-07-19] MEDS ORDERED: VANCOMYCIN HCL 1,500 MG in SODIUM CHLORIDE 0.9% 500 ML IV SCH (02:00)
[2019-07-19] MEDS: HEPARIN SODIUM/DEXTROSE 25,000 UNITS/500 ML BAG IV SCH ×2 (06:01→19:15)
[2019-07-19] MEDS: LEVOTHYROXINE SODIUM 50 MCG TABLET PO SCH (06:11)
[2019-07-19 06:18] LABS: Hematocrit (blood only) 26.7 % (37-47); Mean Corpuscular Hgb Conc 33.7 g/dL (32-36); Mean Corpuscular Volume 106.4 fL (80-100); Mean Platelet Volume 11.8 fL (7.4-10.4); Platelet Count 173 K/uL (130-400); RDW Standard Deviation 69.7 fL (36.4-46.3); Red Blood Count 2.51 M/uL (4.2-5.4); White Blood Count 15.81 K/uL (4.8-10.8)
[2019-07-19 06:36] LABS: INR 1.2 (0.9-1.1); Partial Thromboplastin Ratio 2.7; Prothrombin Time 11.7 Seconds (9.0-12.0)
[2019-07-19 06:49] LABS: Partial Thromboplastin Time 72.3 Seconds (21.0-31.0)
[2019-07-19 06:53] LABS: BUN Creatinine Ratio 27.2 (10-20); Est GFR (African American) 73.5; Est GFR (Non-African American) 63.4; Potassium 3.9 mmol/L (3.5-5.1)
[2019-07-19] MEDS: ALBUT/IPRATROP 3MG/0.5MG NEB 3 ML VIAL NEB SCH ×4 (07:09→18:46)
[2019-07-19 07:25] LABS: Hypogranular Neutrophils 1+
[2019-07-19] MEDS: FLUTICASONE/SALMETEROL (ADVAIR) 500/50 INH 14 PUFF INH SCH ×2 (08:08→20:41)
[2019-07-19] MEDS: FUROSEMIDE 20 MG in SYRINGE 0 ML IV SCH (08:08)
[2019-07-19] MEDS: DICLOFENAC SOD 1% GEL 100 GM TUBE EXT SCH ×2 (08:09→20:45)
[2019-07-19] MEDS: TIOTROPIUM BROMIDE 5 PUFF/90 MCG INH INH SCH (08:09)
[2019-07-19] MEDS: MULTIVITAMIN TAB PO SCH (08:10)
[2019-07-19] MEDS: AMIODARONE 200 MG TAB PO SCH ×2 (08:10→16:10)
[2019-07-19] MEDS: GABAPENTIN 100 MG CAP PO SCH ×2 (08:10→16:10)
[2019-07-19] MEDS: FLUTICASONE PROPIONATE NA SPR 16 GM BTL NAE SCH (08:11)
[2019-07-19] MEDS: ROPINIROLE HCL 1 MG TABLET PO SCH ×4 (08:12→20:42)
[2019-07-19] MEDS: CARVEDILOL 3.125 MG TAB PO SCH ×2 (08:12→20:42)
[2019-07-19] MEDS: fentaNYL 25 MCG/HR TDSY TD SCH (08:20)
[2019-07-19] MEDS: DOCUSATE SODIUM 100 MG CAP PO SCH ×2 (08:20→20:45)
[2019-07-19] MEDS: fentaNYL 12 MCG/HR TDSY TD SCH (08:22)
[2019-07-19 08:27] LABS: ALC (manual) 4.13 K/uL (1.2-3.4); Basophils # (manual) 0.14 K/uL (0-0.2); Basophils % (manual) 0.9 %; Blast # (manual) 0.14 K/uL (0-0); Blast Cells % (manual) 0.9 %; Eosinophils # (manual) 0.14 K/uL (0-0.5); Eosinophils % (manual) 0.9 %; Lymphocytes # (manual) 4.13 K/uL (1.2-3.4); Lymphocytes % (manual) 26.1 %; Metamyelocytes # (manual) 0.14 K/uL (0-0); Metamyelocytes % (manual) 0.9 %; Monocytes # (manual) 0.41 K/uL (0.11-0.59); Monocytes % (manual) 2.6 %; Myelocytes # (manual) 0.96 K/uL (0-0); Myelocytes % (manual) 6.1 %; Neutrophils % (manual) 61.6 %
[2019-07-19] MEDS ORDERED: WARFARIN SOD 10 MG TAB PO ONE (08:30)
[2019-07-19] MEDS: ERTAPENEM SODIUM 1,000 MG in SODIUM CHLORIDE 0.9% 50 ML IV SCH (11:39)
[2019-07-19 13:30] LABS: Partial Thromboplastin Ratio 2.3
[2019-07-19 13:31] LABS: Partial Thromboplastin Time 62.5 Seconds (21.0-31.0)
--- NOTE | 2019-07-19 16:40 | Hospitalist Progress Note ---
Date of Service July 19, 2019 Assessment & Plan (1) Sepsis: present on arrival resolved with Ertapenem, treating UTI and pneumonia (2) Acute on chronic respiratory failure: - Likely component of acute diastolic CHF and possibly caused some hypot ension from a cardiogenic nature - however there is slight progression of the basilar consolidation so the possibility of PNA is there certainly with productive cough, brown sputum makes pneumonia more likely - Continue CPAP HS - patient does report some noncompliance over the past few days prior to admission - She has been weaned back to her baseline 4 L NC at this time - breathing at baseline - She will be continued on Heparin gtt at this time - started Coumadin 07/18, 10mg -- On admission, given the rapid nature of her respiratory compromise there is concern for possible PE however CTA was deferred due to slightly worsened renal function from baseline as well as a VQ scan being nondiagnostic given her chronic conditions/plus inability to perform test adequately due to respiratory compromise Cr is back to baseline but patient is getting better, no need for CT chest continue Ertapenem for PNA, will complete 7 days total while here (3) UTI (urinary tract infection): - UCx with ESBL E. 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 [address] line in restricted limb with patient's permission (4) Leukocytosis: - Has a profound leukocytosis of 80 on admission which is improving - she follows with Dr. Shah - There appears to be a component of infectious etiology but possibly a progression of MDS/other - 1 of 2 BCx with coag neg staph likely this is a contaminant repeat blood cx with no growth WBC down to 15k today (5) Diastolic CHF: - Acute on Chronic; Concern for possible poor forward flow due to venous congestion likely playing a role in hypotension on admission - continue Lasix 20 mg IV daily and monitor I&Os/daily weights - Echo - EF 55-60%; no regional wall motion abnormalities; mild LVH examines euvolemic today change to Lasix 40mg PO daily tomorrow (6) PAF (paroxysmal atrial fibrillation): - On evening of 07/14 she was noted to have narrow complex tachycardia with no response to Adenosine; with further rate control an underlying A Fib was noted; appears she does have a H/O PAF - She was initially started on Amiodarone gtt and converted to NSR with rate control; Convert to Amiodarone 200 mg BID and continue to monitor rate/rhythm; anticoagulation as discussed above, Coumadin - Coreg 3.125 mg BID initiated (7) COPD (chronic obstructive pulmonary disease): - No wheezing noted today; unlikely to have an underlying exacerbation (8) Hypertension: - STABLE at this time - Will Hold Losartan at this time given slight Cr increase as well (9) CKD (chronic kidney disease), stage III: - Cr slightly elevated from baseline but improving and currently at 1.0 and will continue to trend- possibly mild MICHI - possibly from volume overload - BMP daily (10) History of pulmonary embolism: - H/O DVT/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 and on Xarelto 15 mg daily - given body habitus and reduced dosing there is question of efficacy for appropriate coverage - treatment as above plan for hep drip and start on Coumadin, INR is 1.2 / 10mg / 10mg plan for 5mg daily tomorrow (11) DVT prophylaxis: - Heparin gtt Disposition: Resident of [facility]; will obtain PT/OT evaluations; likely return to [facility] on D/C Subjective patient continues to recover nicely breathing easy today, less coughing, less mucous no chest pain, no edema eating well, moving bowels reviewed labs, WBC down to 15k Cr down to 0.8, electrolytes stable Review of Systems Review of Systems: All systems reviewed & are unremarkable except as noted in HPI & below Constitutional: + weakness; no fever Respiratory: + cough, + dyspnea on exertion and + sputum production; no dyspnea and no pain with cough Cardiovascular: no chest pain and no edema Gastrointestinal: no abdominal pain, no nausea, no vomiting, no constipation and no diarrhea/loose stools Physical Exam Constitutional: WD/WN, vitals as above + morbidly obese Eyes: PERRL, conjunctivae normal, anicteric sclerae ENMT: external ear and nose normal, oropharynx normal Neck: trachea midline, no thyromegaly Respiratory: normal respiratory effort; no respiratory distress Auscultation: no crackles and no rales Cardiovascular: RRR, no murmur, no edema Gastrointestinal (Abdomen): normal bowel sounds, soft, nontender, no hepatosplenomegaly Musculoskeletal: no cyanosis or clubbing, extremities motor strength 5/5 Skin: no rashes, warm and dry Neurologic: patellar DTR's 2+ bilat, sensation intact and PERRL, EOMI, accommodation nl, no face palsy, no dysarthria Psychiatric: A+Ox3, euthymic affect Lymphatic: no cervical or axillary lymphadenopathy Results & Data Vital Signs (Past 12 Hours) Vital Signs Temp Pulse Pulse Resp BP BP Pulse Ox 07/19/19 16:11 36.4 C L 135/68 07/19/19 16:04 36.6 C 65 20 133/74 98 07/19/19 15:18 63 18 96 07/19/19 11:09 82 18 95 07/19/19 08:08 63 127/73 07/19/19 07:10 65 20 95 07/19/19 07:04 36.5 C 65 18 98/63 L 95 Laboratory Results Laboratory Results - last 24 hr 07/19/19 07/19/19 07/19/19 05:52 05:52 05:52 WBC 15.81 H RBC 2.51 L Hgb 9.0 L Hct 26.7 L MCV 106.4 H MCH 35.9 H MCHC 33.7 RDW Std Deviation 69.7 H RDW Coeff of Marta 18.0 H Plt Count 173 MPV 11.8 H Neutrophils % (Manual) 61.6 Lymphocytes % (Manual) 26.1 Monocytes % (Manual) 2.6 Eosinophils % (Manual) 0.9 Basophils % (Manual) 0.9 Metamyelocytes % (Man) 0.9 Myelocytes % (Man) 6.1 Blast Cells % (Manual) 0.9 Neutrophils # (Manual) 9.74 H Total Absolute Neuts 9.74 H Lymphocytes # (Manual) 4.13 H Total Abs Lymphocytes 4.13 H Monocytes # (Manual) 0.41 Eosinophils # (Manual) 0.14 Basophils # (Manual) 0.14 Metamyelocytes # (Man) 0.14 H Myelocytes # (Manual) 0.96 H Blast Cells # (Man) 0.14 H Hypogranular Neuts 1+ Blood Smear Review PT 11.7 INR 1.2 H APTT 72.3 H* PTT Ratio 2.7 Sodium 142 Potassium 3.9 Chloride 107 Carbon Dioxide 32 Anion Gap 4.0 BUN 23 H Creatinine 0.83 Est Cr Clr Drug Dosing 68.0 Est GFR ( Amer) 73.5 Est GFR (Non-Af Amer) 63.4 BUN/Creatinine Ratio 27.2 H Glucose 99 Calcium 9.0 07/19/19 12:48 WBC RBC Hgb Hct MCV MCH MCHC RDW Std Deviation RDW Coeff of Marta Plt Count MPV Neutrophils % (Manual) Lymphocytes % (Manual) Monocytes % (Manual) Eosinophils % (Manual) Basophils % (Manual) Metamyelocytes % (Man) Myelocytes % (Man) Blast Cells % (Manual) Neutrophils # (Manual) Total Absolute Neuts Lymphocytes # (Manual) Total Abs Lymphocytes Monocytes # (Manual) Eosinophils # (Manual) Basophils # (Manual) Metamyelocytes # (Man) Myelocytes # (Manual) Blast Cells # (Man) Hypogranular Neuts Blood Smear Review PT INR APTT 62.5 H* PTT Ratio 2.3 Sodium Potassium Chloride Carbon Dioxide Anion Gap BUN Creatinine Est Cr Clr Drug Dosing Est GFR ( Amer) Est GFR (Non-Af Amer) BUN/Creatinine Ratio Glucose Calcium Medications Administered Current Inpatient Medications Acetaminophen (Tylenol) 1,000 mg PO HS [facility] Stop: 08/13/19 20:59 Last Admin: 07/18/19 21:06 Dose: 1,000 mg Documented by: Acetaminophen (Tylenol) 650 mg PO Q4H PRN PRN Reason: Pain or Fever Stop: 08/13/19 15:55 Last Admin: 07/18/19 03:36 Dose: 650 mg Documented by: Al Hydrox/Mg Hydrox/Simethicone (Maalox) 15 ml PO Q4H PRN PRN Reason: Dyspepsia Stop: 08/13/19 15:55 Albuterol (Duoneb) 3 ml NEB QIDR [facility] Stop: 08/13/19 16:59 Last Admin: 07/19/19 15:17 Dose: 3 ml Documented by: Amiodarone HCl (Cordarone) 200 mg PO BIDM [facility] Stop: 08/14/19 17:09 Last Admin: 07/19/19 16:10 Dose: 200 mg Documented by: Artificial Tears (Artificial Tears) 2 drops OP Q4H PRN PRN Reason: Allergy Symptoms Stop: 08/15/19 12:22 Carvedilol (Coreg) 3.125 mg PO BID [facility] Stop: 08/14/19 20:59 Last Admin: 07/19/19 08:12 Dose: 3.125 mg Documented by: Diclofenac Sodium (Voltaren 1% Top) 2 appln EXT BID [facility] Stop: 08/13/19 20:59 Last Admin: 07/19/19 08:09 Dose: 2 appln Documented by: Docusate Sodium (Colace) 100 mg PO BID [facility] Stop: 08/13/19 20:59 Last Admin: 07/19/19 08:20 Dose: 100 mg Documented by: Duloxetine HCl (Cymbalta) 30 mg PO [facility] Stop: 08/13/19 20:59 Last Admin: 07/18/19 21:00 Dose: 30 mg Documented by: Fentanyl (Duragesic) 25 mcg TD Q72H [facility] Stop: 07/30/19 08:59 Last Admin: 07/19/19 08:20 Dose: 25 mcg Documented by: Fentanyl (Duragesic) 12 mcg TD Q3D@0900 [facility] Stop: 07/30/19 08:59 Last Admin: 07/19/19 08:22 Dose: 12 mcg Documented by: Fluticasone Propionate (Flonase) 2 sprays TEOFILO DAILY [facility] Stop: 08/14/19 08:59 Last Admin: 07/19/19 08:11 Dose: 2 sprays Documented by: Gabapentin (Neurontin) 200 mg PO BID@0830,1630 [facility] Stop: 08/13/19 16:59 Last Admin: 07/19/19 16:10 Dose: 200 mg Documented by: Gabapentin (Neurontin) 600 mg PO [facility] Stop: 08/13/19 20:59 Last Admin: 07/18/19 21:00 Dose: 600 mg Documented by: Heparin Sodium/Dextrose (Heparin Sodium/Dextrose) 25,000 units in 500 mls @ 31 mls/hr IV .[id number] [facility]; Protocol Stop: 08/13/19 19:59 Last Titration: 07/19/19 15:13 Dose: 1,550 units/hr, 31 mls/hr Documented by: Ertapenem 1,000 mg/ Sodium (Chloride) 60 mls @ 100 mls/hr IV Q24H [facility] Stop: 07/25/19 10:59 Last Infusion: 07/19/19 12:20 Dose: Infused Documented by: Furosemide 20 mg/ Syringe 2 mls @ 4 mls/min IV DAILY [facility] Stop: 08/15/19 08:59 Last Admin: 07/19/19 08:08 Dose: 4 mls/min Documented by: Levothyroxine Sodium (Synthroid) 50 mcg PO DAILYBB [facility] Stop: 08/14/19 06:29 Last Admin: 07/19/19 06:11 Dose: 50 mcg Documented by: Magnesium Hydroxide (Milk Of Magnesia) 30 ml PO Q12H PRN PRN Reason: Constipation Stop: 08/13/19 15:55 Miscellaneous (Fentanyl Patch Remove & Waste) 1 ea N/A Q72H [facility] Stop: 08/18/19 08:58 Last Admin: 07/19/19 08:20 Dose: 1 ea Documented by: Miscellaneous (Fentanyl Patch Check Placement) 1 ea N/A QS [facility] Stop: 08/15/19 15:59 Last Admin: 07/19/19 16:10 Dose: 1 ea Documented by: Miscellaneous (Fentanyl Patch Remove & Waste) 1 ea N/A Q72H [facility] Stop: 08/18/19 08:58 Last Admin: 07/19/19 08:21 Dose: 1 ea Documented by: Miscellaneous (Fentanyl Patch Check Placement) 1 ea N/A QS [facility] Stop: 08/15/19 15:59 Last Admin: 07/19/19 16:10 Dose: 1 ea Documented by: Montelukast Sodium (Singulair) 10 mg PO PM [facility] Stop: 08/13/19 20:59 Last Admin: 07/18/19 21:00 Dose: 10 mg Documented by: Multivitamins (Multivitamin Tab) 1 tab PO QAM [facility] Stop: 08/14/19 08:59 Last Admin: 07/19/19 08:10 Dose: 1 tab Documented by: Oxycodone HCl (Roxicodone Immediate Rel) 5 mg PO QAM PRN PRN Reason: Moderate Stop: 07/28/19 15:55 Last Admin: 07/17/19 01:50 Dose: 5 mg Documented by: Polyethylene Glycol (Miralax Powder Packet) 17 gm PO DAILY PRN PRN Reason: Constipation Stop: 08/13/19 15:55 Ropinirole HCl (Requip) 1 mg PO QID [facility] Stop: 08/17/19 16:59 Last Admin: 07/19/19 16:10 Dose: 1 mg Documented by: Fluticasone/Salmeterol (Advair Diskus 500/50) 1 puffs INH BID [facility] Stop: 08/13/19 20:59 Last Admin: 07/19/19 08:08 Dose: 1 puffs Documented by: Tiotropium [place] (Spiriva) 1 puffs INH QAM [facility] Stop: 08/14/19 08:59 Last Admin: 07/19/19 08:09 Dose: 1 puffs Documented by: PG Care Time/CCT Total # of Minutes Spent Total Time Spent with Patient: Total time spent is greater than 50% in coordination of care (as documented) at patient's floor/unit and/or counseling patient: (1) Diastolic CHF Heart failure chronicity: acute on chronic Qualified Code(s): I50.33 - Acute on chronic diastolic (congestive) heart failure (2) UTI (urinary tract infection) Hematuria presence: without hematuria Urinary tract infection type: site unspecified Qualified Code(s): N39.0 - Urinary tract infection, site not specified (3) Acute on chronic respiratory failure Respiratory failure complication: hypoxia Qualified Code(s): J96.21 - Acute and chronic respiratory failure with hypoxia (4) Hypertension Hypertension type: essential hypertension Qualified Code(s): I10 - Essential (primary) hypertension
[2019-07-19] MEDS: GABAPENTIN 600 MG TAB PO SCH (20:42)
[2019-07-19] MEDS: DULOXETINE HCL 30 MG CAP PO SCH (20:42)
[2019-07-19] MEDS: MONTELUKAST SODIUM 10 MG TABLET PO SCH (20:43)
[2019-07-19] MEDS: ACETAMINOPHEN 500 MG TAB PO SCH (20:45)
[2019-07-20] MEDS ORDERED: VANCOMYCIN TROUGH ONE (01:30)
[2019-07-20] MEDS: LEVOTHYROXINE SODIUM 50 MCG TABLET PO SCH (06:04)
[2019-07-20] MEDS ORDERED: MICONAZOLE NITRATE POWDER 43 GM EXT PRN (06:53)
[2019-07-20 07:35] LABS: Hematocrit (blood only) 28.6 % (37-47); Hemoglobin 9.2 g/dL (12.0-16.0); Mean Corpuscular Hgb Conc 32.2 g/dL (32-36); Mean Corpuscular Volume 104.8 fL (80-100); Platelet Count 183 K/uL (130-400); RDW Coefficient of Variation 18.1 % (11.5-14.5); RDW Standard Deviation 68.2 fL (36.4-46.3); Red Blood Count 2.73 M/uL (4.2-5.4); White Blood Count 19.39 K/uL (4.8-10.8)
[2019-07-20 07:43] LABS: INR 2.3 (0.9-1.1); Prothrombin Time 21.9 Seconds (9.0-12.0)
[2019-07-20] MEDS: ALBUT/IPRATROP 3MG/0.5MG NEB 3 ML VIAL NEB SCH ×4 (07:44→19:05)
[2019-07-20 08:05] LABS: BUN Creatinine Ratio 23.1 (10-20); Calcium 9.5 mg/dl (8.5-10.1); Creatinine Clr Calc Pharmacy 61.9 ml/min; Est GFR (African American) 69.4; Est GFR (Non-African American) 59.9; Potassium 3.9 mmol/L (3.5-5.1)
[2019-07-20] MEDS: AMIODARONE 200 MG TAB PO SCH ×2 (08:11→16:58)
[2019-07-20] MEDS: GABAPENTIN 100 MG CAP PO SCH ×2 (08:12→16:57)
[2019-07-20] MEDS: FLUTICASONE/SALMETEROL (ADVAIR) 500/50 INH 14 PUFF INH SCH ×2 (08:12→20:45)
[2019-07-20] MEDS: CARVEDILOL 3.125 MG TAB PO SCH ×2 (08:12→20:52)
[2019-07-20] MEDS: FLUTICASONE PROPIONATE NA SPR 16 GM BTL NAE SCH (08:12)
[2019-07-20] MEDS: MULTIVITAMIN TAB PO SCH (08:13)
[2019-07-20] MEDS: ROPINIROLE HCL 1 MG TABLET PO SCH ×4 (08:13→20:55)
[2019-07-20] MEDS: FUROSEMIDE 40 MG TAB PO SCH (08:13)
[2019-07-20] MEDS: TIOTROPIUM BROMIDE 5 PUFF/90 MCG INH INH SCH (08:14)
[2019-07-20] MEDS: DOCUSATE SODIUM 100 MG CAP PO SCH ×2 (08:14→20:57)
[2019-07-20] MEDS: DICLOFENAC SOD 1% GEL 100 GM TUBE EXT SCH ×2 (08:14→20:57)
[2019-07-20] MEDS: CHECK FENTANYL PATCH PLACEMENT SCH ×6 (08:22→23:10)
[2019-07-20 08:57] LABS: ALC (manual) 4.46 K/uL (1.2-3.4); Eosinophils # (manual) 0.52 K/uL (0-0.5); Eosinophils % (manual) 2.7 %; Hypogranular Neutrophils 1+; Lymphocytes # (manual) 4.46 K/uL (1.2-3.4); Metamyelocytes # (manual) 0.52 K/uL (0-0); Metamyelocytes % (manual) 2.7 %; Monocytes # (manual) 0.85 K/uL (0.11-0.59); Monocytes % (manual) 4.4 %; Myelocytes # (manual) 1.71 K/uL (0-0); Myelocytes % (manual) 8.8 %; Neutrophils % (manual) 58.4 %
[2019-07-20] MEDS: ERTAPENEM SODIUM 1,000 MG in SODIUM CHLORIDE 0.9% 50 ML IV SCH (12:00)
--- NOTE | 2019-07-20 14:01 | Hospitalist Progress Note ---
Date of Service July 20, 2019 Assessment & Plan (1) Sepsis: present on arrival resolved with Ertapenem, treating UTI and pneumonia (2) Acute on chronic respiratory failure: - Likely component of acute diastolic CHF and possibly caused some hypot ension from a cardiogenic nature - however there is slight progression of the basilar consolidation so the possibility of PNA is there certainly with productive cough, brown sputum makes pneumonia more likely - Continue CPAP HS - patient does report some noncompliance over the past few days prior to admission - She has been weaned back to her baseline 4 L NC at this time - breathing at baseline - She will be continued on Heparin gtt at this time - started Coumadin 07/18, 10mg -- On admission, given the rapid nature of her respiratory compromise there is concern for possible PE however CTA was deferred due to slightly worsened renal function from baseline as well as a VQ scan being nondiagnostic given her chronic conditions/plus inability to perform test adequately due to respiratory compromise Cr is back to baseline but patient is getting better, no need for CT chest PNEUMONIA continue Ertapenem for PNA, will complete 7 days total while here which will be tomorrow (3) UTI (urinary tract infection): - UCx with ESBL E. 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 [address] line in restricted limb with patient's permission 7 days will be tomorrow (4) Leukocytosis: - Has a profound leukocytosis of 80 on admission which is improving - she follows with Dr. Shah - There appears to be a component of infectious etiology but possibly a progression of MDS/other - 1 of 2 BCx with coag neg staph likely this is a contaminant repeat blood cx with no growth WBC up slightly to 19k recommend routine follow up with Dr. Cheema (5) Diastolic CHF: - Acute on Chronic; Concern for possible poor forward flow due to venous congestion likely playing a role in hypotension on admission - continue Lasix 20 mg IV daily and monitor I&Os/daily weights - Echo - EF 55-60%; no regional wall motion abnormalities; mild LVH examines euvolemic for two days changed to Lasix 40mg PO daily today, continue on discharge (6) PAF (paroxysmal atrial fibrillation): - On evening of 07/14 she was noted to have narrow complex tachycardia with no response to Adenosine; with further rate control an underlying A Fib was noted; appears she does have a H/O PAF - She was initially started on Amiodarone gtt and converted to NSR with rate control; Convert to Amiodarone 200 mg BID and continue to monitor rate/rhythm; anticoagulation as discussed above, Coumadin - Coreg 3.125 mg BID initiated INR is 2.2, hold Coumadin, hep drip stopped (7) COPD (chronic obstructive pulmonary disease): - No wheezing noted today; unlikely to have an underlying exacerbation (8) Hypertension: - STABLE at this time - continue to hold Losartan due to low normal BP (9) CKD (chronic kidney disease), stage III: - Cr slightly elevated from baseline but improving and currently at 0.87 and will continue to trend- possibly mild MICHI - possibly from volume overload - BMP daily (10) History of pulmonary embolism: - H/O DVT/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 and on Xarelto 15 mg daily - given body habitus and reduced dosing there is question of efficacy for appropriate coverage - treatment as above plan for hep drip and start on Coumadin, INR is 2.3 07/18 10mg 07/19 10mg 07/20 hold coumadin due to INR of 2.3 plan for 5mg daily tomorrow (11) DVT prophylaxis: - INR 2.3 Disposition: Resident of [facility]; can go tomorrow Subjective patient sitting up in chair, no distress, breathing well eating well lots of urine out in her garsia, will remove garsia today reviewed labs, WBC up to 19k but chronic Cr is stable, electrolytes stable discussed going to [facility] tomorrow, will check with CM Review of Systems Review of Systems: All systems reviewed & are unremarkable except as noted in HPI & below Physical Exam Constitutional: WD/WN, vitals as above + morbidly obese Eyes: PERRL, conjunctivae normal, anicteric sclerae ENMT: external ear and nose normal, oropharynx normal Neck: trachea midline, no thyromegaly Respiratory: normal respiratory effort; no respiratory distress Auscultation: no crackles and no rales Cardiovascular: RRR, no murmur, no edema Gastrointestinal (Abdomen): normal bowel sounds, soft, nontender, no hepatosplenomegaly Musculoskeletal: no cyanosis or clubbing, extremities motor strength 5/5 Skin: no rashes, warm and dry Neurologic: patellar DTR's 2+ bilat, sensation intact and PERRL, EOMI, accommodation nl, no face palsy, no dysarthria Psychiatric: A+Ox3, euthymic affect Lymphatic: no cervical or axillary lymphadenopathy Results & Data Vital Signs (Past 12 Hours) Vital Signs Temp Pulse Resp BP Pulse Ox 07/20/19 11:35 68 20 98 07/20/19 07:46 59 L 18 98 07/20/19 07:04 36.3 C L 62 18 111/73 96 Laboratory Results Laboratory Results - last 24 hr 07/20/19 07/20/19 07/20/19 07:09 07:09 07:09 WBC 19.39 H RBC 2.73 L Hgb 9.2 L Hct 28.6 L MCV 104.8 H MCH 33.7 MCHC 32.2 RDW Std Deviation 68.2 H RDW Coeff of Marta 18.1 H Plt Count 183 MPV 12.0 H Neutrophils % (Manual) 58.4 Lymphocytes % (Manual) 23.0 Monocytes % (Manual) 4.4 Eosinophils % (Manual) 2.7 Metamyelocytes % (Man) 2.7 Myelocytes % (Man) 8.8 Neutrophils # (Manual) 11.32 H Total Absolute Neuts 11.32 H Lymphocytes # (Manual) 4.46 H Total Abs Lymphocytes 4.46 H Monocytes # (Manual) 0.85 H Eosinophils # (Manual) 0.52 H Metamyelocytes # (Man) 0.52 H Myelocytes # (Manual) 1.71 H Hypogranular Neuts 1+ PT 21.9 H INR 2.3 H APTT PTT Ratio Sodium 142 Potassium 3.9 Chloride 105 Carbon Dioxide 33 H Anion Gap 4.0 BUN 20 H Creatinine 0.87 Est Cr Clr Drug Dosing 61.9 Est GFR ( Amer) 69.4 Est GFR (Non-Af Amer) 59.9 BUN/Creatinine Ratio 23.1 H Glucose 96 Calcium 9.5 07/20/19 07:09 WBC RBC Hgb Hct MCV MCH MCHC RDW Std Deviation RDW Coeff of Marta Plt Count MPV Neutrophils % (Manual) Lymphocytes % (Manual) Monocytes % (Manual) Eosinophils % (Manual) Metamyelocytes % (Man) Myelocytes % (Man) Neutrophils # (Manual) Total Absolute Neuts Lymphocytes # (Manual) Total Abs Lymphocytes Monocytes # (Manual) Eosinophils # (Manual) Metamyelocytes # (Man) Myelocytes # (Manual) Hypogranular Neuts PT INR APTT Cancelled PTT Ratio Cancelled Sodium Potassium Chloride Carbon Dioxide Anion Gap BUN Creatinine Est Cr Clr Drug Dosing Est GFR ( Amer) Est GFR (Non-Af Amer) BUN/Creatinine Ratio Glucose Calcium Medications Administered Current Inpatient Medications Acetaminophen (Tylenol) 1,000 mg PO HS [facility] Stop: 08/13/19 20:59 Last Admin: 07/19/19 20:45 Dose: 1,000 mg Documented by: Acetaminophen (Tylenol) 650 mg PO Q4H PRN PRN Reason: Pain or Fever Stop: 08/13/19 15:55 Last Admin: 07/18/19 03:36 Dose: 650 mg Documented by: Al Hydrox/Mg Hydrox/Simethicone (Maalox) 15 ml PO Q4H PRN PRN Reason: Dyspepsia Stop: 08/13/19 15:55 Albuterol (Duoneb) 3 ml NEB QIDR [facility] Stop: 08/13/19 16:59 Last Admin: 07/20/19 11:31 Dose: 3 ml Documented by: Amiodarone HCl (Cordarone) 200 mg PO BIDM [facility] Stop: 08/14/19 17:09 Last Admin: 07/20/19 08:11 Dose: 200 mg Documented by: Artificial Tears (Artificial Tears) 2 drops OP Q4H PRN PRN Reason: Allergy Symptoms Stop: 08/15/19 12:22 Carvedilol (Coreg) 3.125 mg PO BID [facility] Stop: 08/14/19 20:59 Last Admin: 07/20/19 08:12 Dose: 3.125 mg Documented by: Diclofenac Sodium (Voltaren 1% Top) 2 appln EXT BID [facility] Stop: 08/13/19 20:59 Last Admin: 07/20/19 08:14 Dose: 2 appln Documented by: Docusate Sodium (Colace) 100 mg PO BID [facility] Stop: 08/13/19 20:59 Last Admin: 07/20/19 08:14 Dose: 100 mg Documented by: Duloxetine HCl (Cymbalta) 30 mg PO HS [facility] Stop: 08/13/19 20:59 Last Admin: 07/19/19 20:42 Dose: 30 mg Documented by: Fentanyl (Duragesic) 25 mcg TD Q72H [facility] Stop: 07/30/19 08:59 Last Admin: 07/19/19 08:20 Dose: 25 mcg Documented by: Fentanyl (Duragesic) 12 mcg TD Q3D@0900 [facility] Stop: 07/30/19 08:59 Last Admin: 07/19/19 08:22 Dose: 12 mcg Documented by: Fluticasone Propionate (Flonase) 2 sprays TEOFILO DAILY [facility] Stop: 08/14/19 08:59 Last Admin: 07/20/19 08:12 Dose: 2 sprays Documented by: Furosemide (Lasix) 40 mg PO QAM [facility] Stop: 08/19/19 08:59 Last Admin: 07/20/19 08:13 Dose: 40 mg Documented by: Gabapentin (Neurontin) 200 mg PO BID@0830,1630 [facility] Stop: 08/13/19 16:59 Last Admin: 07/20/19 08:12 Dose: 200 mg Documented by: Gabapentin (Neurontin) 600 mg PO HS [facility] Stop: 08/13/19 20:59 Last Admin: 07/19/19 20:42 Dose: 600 mg Documented by: Ertapenem 1,000 mg/ Sodium (Chloride) 60 mls @ 100 mls/hr IV Q24H [facility] Stop: 07/25/19 10:59 Last Infusion: 07/20/19 12:47 Dose: Infused Documented by: Levothyroxine Sodium (Synthroid) 50 mcg PO DAILYBB [facility] Stop: 08/14/19 06:29 Last Admin: 07/20/19 06:04 Dose: 50 mcg Documented by: Magnesium Hydroxide (Milk Of Magnesia) 30 ml PO Q12H PRN PRN Reason: Constipation Stop: 08/13/19 15:55 Miconazole Nitrate (Desenex) 1 appln EXT PRN PRN PRN Reason: Affected Skin Folds Stop: 08/19/19 06:52 Miscellaneous (Fentanyl Patch Remove & Waste) 1 ea N/A Q72H [facility] Stop: 08/18/19 08:58 Last Admin: 07/19/19 08:20 Dose: 1 ea Documented by: Miscellaneous (Fentanyl Patch Check Placement) 1 ea N/A QS [facility] Stop: 08/15/19 15:59 Last Admin: 07/20/19 08:22 Dose: 1 ea Documented by: Miscellaneous (Fentanyl Patch Remove & Waste) 1 ea N/A Q72H [facility] Stop: 08/18/19 08:58 Last Admin: 07/19/19 08:21 Dose: 1 ea Documented by: Miscellaneous (Fentanyl Patch Check Placement) 1 ea N/A QS [facility] Stop: 08/15/19 15:59 Last Admin: 07/20/19 08:22 Dose: 1 ea Documented by: Montelukast Sodium (Singulair) 10 mg PO PM [facility] Stop: 08/13/19 20:59 Last Admin: 07/19/19 20:43 Dose: 10 mg Documented by: Multivitamins (Multivitamin Tab) 1 tab PO QAM [facility] Stop: 08/14/19 08:59 Last Admin: 07/20/19 08:13 Dose: 1 tab Documented by: Oxycodone HCl (Roxicodone Immediate Rel) 5 mg PO QAM PRN PRN Reason: Moderate Stop: 07/28/19 15:55 Last Admin: 07/17/19 01:50 Dose: 5 mg Documented by: Polyethylene Glycol (Miralax Powder Packet) 17 gm PO DAILY PRN PRN Reason: Constipation Stop: 08/13/19 15:55 Ropinirole HCl (Requip) 1 mg PO QID [facility] Stop: 08/17/19 16:59 Last Admin: 07/20/19 12:00 Dose: 1 mg Documented by: Fluticasone/Salmeterol (Advair Diskus 500/50) 1 puffs INH BID [facility] Stop: 08/13/19 20:59 Last Admin: 07/20/19 08:12 Dose: 1 puffs Documented by: Tiotropium [place] (Spiriva) 1 puffs INH QAM [facility] Stop: 08/14/19 08:59 Last Admin: 07/20/19 08:14 Dose: 1 puffs Documented by: PG Care Time/CCT Total # of Minutes Spent Total Time Spent with Patient: Total time spent is greater than 50% in coordination of care (as documented) at patient's floor/unit and/or counseling patient: (1) Acute on chronic respiratory failure Respiratory failure complication: hypoxia Qualified Code(s): J96.21 - Acute and chronic respiratory failure with hypoxia (2) UTI (urinary tract infection) Hematuria presence: without hematuria Urinary tract infection type: site unspecified Qualified Code(s): N39.0 - Urinary tract infection, site not specified (3) Diastolic CHF Heart failure chronicity: acute on chronic Qualified Code(s): I50.33 - Acute on chronic diastolic (congestive) heart failure (4) Hypertension Hypertension type: essential hypertension Qualified Code(s): I10 - Essential (primary) hypertension
[2019-07-20] MEDS: ACETAMINOPHEN 325 MG TAB PO PRN (16:57)
[2019-07-20] MEDS: DULOXETINE HCL 30 MG CAP PO SCH (20:53)
[2019-07-20] MEDS: GABAPENTIN 600 MG TAB PO SCH (20:54)
[2019-07-20] MEDS: MONTELUKAST SODIUM 10 MG TABLET PO SCH (20:55)
[2019-07-20] MEDS: ACETAMINOPHEN 500 MG TAB PO SCH (20:58)
[2019-07-21] MEDS: LEVOTHYROXINE SODIUM 50 MCG TABLET PO SCH (05:39)
[2019-07-21 05:46] LABS: Hematocrit (blood only) 27.8 % (37-47); Hemoglobin 8.9 g/dL (12.0-16.0); Mean Corpuscular Volume 105.3 fL (80-100); Mean Platelet Volume 11.8 fL (7.4-10.4); Platelet Count 169 K/uL (130-400); RDW Coefficient of Variation 18.5 % (11.5-14.5); RDW Standard Deviation 69.6 fL (36.4-46.3); Red Blood Count 2.64 M/uL (4.2-5.4); White Blood Count 18.51 K/uL (4.8-10.8)
[2019-07-21 05:55] LABS: INR 3.2 (0.9-1.1); Prothrombin Time 29.8 Seconds (9.0-12.0)
[2019-07-21 06:21] LABS: ALC (manual) 1.78 K/uL (1.2-3.4); Lymphocytes # (manual) 1.78 K/uL (1.2-3.4); Lymphocytes % (manual) 9.6 %; Metamyelocytes # (manual) 0.17 K/uL (0-0); Metamyelocytes % (manual) 0.9 %; Monocytes # (manual) 2.57 K/uL (0.11-0.59); Monocytes % (manual) 13.9 %; Myelocytes # (manual) 1.13 K/uL (0-0); Myelocytes % (manual) 6.1 %; Neutrophils % (manual) 69.5 %
[2019-07-21 06:25] LABS: BUN Creatinine Ratio 23.8 (10-20); Calcium 9.4 mg/dl (8.5-10.1); Creatinine Clr Calc Pharmacy 60.5 ml/min; Est GFR (African American) 67.5; Est GFR (Non-African American) 58.3; Potassium 3.8 mmol/L (3.5-5.1)
[2019-07-21] MEDS: ALBUT/IPRATROP 3MG/0.5MG NEB 3 ML VIAL NEB SCH ×2 (07:25→11:28)
[2019-07-21] MEDS: CHECK FENTANYL PATCH PLACEMENT SCH ×2 (09:25)
[2019-07-21] MEDS: AMIODARONE 200 MG TAB PO SCH (09:31)
[2019-07-21] MEDS: GABAPENTIN 100 MG CAP PO SCH (09:31)
[2019-07-21] MEDS: FUROSEMIDE 40 MG TAB PO SCH (09:32)
[2019-07-21] MEDS: CARVEDILOL 3.125 MG TAB PO SCH (09:32)
[2019-07-21] MEDS: FLUTICASONE/SALMETEROL (ADVAIR) 500/50 INH 14 PUFF INH SCH (09:32)
[2019-07-21] MEDS: FLUTICASONE PROPIONATE NA SPR 16 GM BTL NAE SCH (09:32)
[2019-07-21] MEDS: TIOTROPIUM BROMIDE 5 PUFF/90 MCG INH INH SCH (09:33)
[2019-07-21] MEDS: ROPINIROLE HCL 1 MG TABLET PO SCH ×2 (09:33→11:58)
[2019-07-21] MEDS: MULTIVITAMIN TAB PO SCH (09:33)
[2019-07-21] MEDS: DICLOFENAC SOD 1% GEL 100 GM TUBE EXT SCH (09:33)
[2019-07-21] MEDS: DOCUSATE SODIUM 100 MG CAP PO SCH (09:46)
[2019-07-21] MEDS: ERTAPENEM SODIUM 1,000 MG in SODIUM CHLORIDE 0.9% 50 ML IV SCH (11:58)
[2019-07-21] MEDS: ACETAMINOPHEN 325 MG TAB PO PRN (12:58)
--- NOTE | 2019-07-21 15:07 | Discharge Summary ---
Date of Service July 21, 2019 Admission HPI Per Admitting Provider Ms. Mendez is an 88 y/o female with PMHx of Chronic Respiratory Failure on 4 L Baseline, COPD, Diastolic CHF, HTN, CKD III, Macrocytic Anemia, H/O DVT/PE, H/O Breast CA/Lung CA S/P RUL Wedge Resection who presents to the ED for acute onset of SOB. Patient reports she has been in her normal state of health up until this AM. She states she had a sudden onset of SOB and was given Rocephin 1 g and Budesonide/Duonebs prior to arrival in ED. She was found to be hypoxic on her normal 4 L and minimal improvement when moved to 6 L. She did improve with placement of BiPAP. Patient reports feeling some improvement with her breathing since starting BiPAP and can almost speak full sentences before needing to stop to breath. Jasmin Barraza reports a low grade fever last night around 99 F. She endorses a chronic cough and denies any changes with this. However, she does note it feels like there is something "stuck" and she hasn't been able to cough it up. She also states she has noticed herself wheezing and feeling like her breathing is tight. She reports chronic redness/swelling of her b/l lower extremities which she reports are about baseline at this time. CXR reveals slight progression of pulmonary edema and slight increase in R basilar consolidation which could favor atelectasis vs pneumonia. She also reports she has not utilized her CPAP at night consistently over the past couple days. She does endorse a headache earlier this AM which has since subsided. Upon admission she was noted to have a WBC of 80. She was in to see Dr. Shah on Monday for macrocytic anemia and she thinks she was told she could have MDS vs Leukemia was mentioned previously but she wasn't sure on these details. She is also noted to be on only Xarelto 15 mg daily for H/O PE/DVT which suspect is for renal dosing but could place her at risk for PE/DVT. UA suggestive of UTI as well. UCx and BCx are pending. Principal Diagnosis Acute respiratory failure due to pneumonia Discharge Exam Constitutional WD/WN, vitals as above + morbidly obese Eyes PERRL, conjunctivae normal, anicteric sclerae ENMT external ear and nose normal, oropharynx normal Neck trachea midline, no thyromegaly Respiratory normal respiratory effort; no respiratory distress Auscultation: no crackles and no rales Cardiovascular RRR, no murmur, no edema Gastrointestinal (Abdomen) normal bowel sounds, soft, nontender, no hepatosplenomegaly Musculoskeletal no cyanosis or clubbing, extremities motor strength 5/5 Skin no rashes, warm and dry Neurologic patellar DTR's 2+ bilat, sensation intact and PERRL, EOMI, accommodation nl, no face palsy, no dysarthria Psychiatric A+Ox3, euthymic affect Lymphatic no cervical or axillary lymphadenopathy Discharge Data Allergies Allergy/AdvReac Type Severity Reaction Status Date / Time enoxaparin Allergy Intermediate RASH, Verified 07/14/19 12:13 PRURITUS Consultations 07/14/19 13:30 ED Decision to Admit Stat 07/14/19 15:56 Consult Case Management - Discharge Planning Routine Consult Hematology Routine 07/14/19 17:07 Consult Infectious Diseases Routine 07/14/19 20:59 Consult Access Coordinator Routine 07/15/19 05:54 Consult Cardiology Routine 07/15/19 14:26 Consult Access Coordinator Routine Ordered Studies 07/14/19 16:36 CT head/brain wo con Urgent 07/15/19 15:56 US venous doppler LE Routine Hospital Course (1) Sepsis: present on arrival resolved with Ertapenem, treating UTI and pneumonia (2) Acute on chronic respiratory failure: - Likely component of acute diastolic CHF and possibly caused some hypotension from a cardiogenic nature - however there is slight progression of the basilar consolidation, more likely pneumonia as cause of acute distress - Continue CPAP HS - patient does report some noncompliance over the past few days prior to admission - She was weaned back to her baseline 4 L NC several days prior to discharge - treated for possible PE with heparin drip and converted to coumadin thought that maybe patient was undertreated with her NOAC due to her large BMI -- On admission, given the rapid nature of her respiratory compromise there was concern for possible PE however CTA was deferred due to slightly worsened renal function from baseline as well as a VQ scan being nondiagnostic given her chronic conditions/plus inability to perform test adequately due to respiratory compromise Cr is back to baseline but patient is getting better, no need for CT chest PNEUMONIA treated with Ertapenem 7 days total while here, no further antibiotics needed (3) UTI (urinary tract infection): - UCx with ESBL E. 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 [address] line in restricted limb with patient's permission 7 days completed while hospitalized (4) Leukocytosis: - Has a profound leukocytosis of 80 on admission which improved to the low to high teens - she follows with Dr. Shah - There appears to be a component of infectious etiology but possibly a progression of MDS/other - 1 of 2 BCx with coag neg staph likely this is a contaminant repeat blood cx with no growth WBC up slightly to 19k recommend routine follow up with Dr. Cheema (5) Diastolic CHF: - Acute on Chronic; Concern for possible poor forward flow due to venous congestion likely playing a role in hypotension on admission - treated with Lasix 20 mg IV daily and monitor I&Os/daily weights - Echo - EF 55-60%; no regional wall motion abnormalities; mild LVH examines euvolemic for three days change to Lasix 40mg PO daily today, continue on discharge (6) PAF (paroxysmal atrial fibrillation): - On evening of 07/14 she was noted to have narrow complex tachycardia with no response to Adenosine; with further rate control an underlying A Fib was noted; appears she does have a H/O PAF - She was initially started on Amiodarone gtt and converted to NSR with rate control; Convert to Amiodarone 200 mg BID and continue to monitor rate/rhythm; anticoagulation as discussed above, Coumadin - Coreg 3.125 mg BID initiated INR is 3.2 AMIODARONE and COREG new medications for afib (7) COPD (chronic obstructive pulmonary disease): - No wheezing noted today; unlikely to have an underlying exacerbation (8) Hypertension: - STABLE at this time - continue to hold Losartan due to low normal BP (9) CKD (chronic kidney disease), stage III: - Cr slightly elevated from baseline but improved and currently at 0.87 and will continue to trend- possibly mild MICHI but resolved very quickly - BMP daily (10) History of pulmonary embolism: - H/O DVT/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 and on Xarelto 15 mg daily - given body habitus and reduced dosing there is question of efficacy for appropriate coverage - treatment as above plan for hep drip and start on Coumadin, INR is 3.2 07/18 10mg / 10mg 07/20 hold coumadin due to INR of 2.3 07/21 hold Coumadin due to INR of 3.2 plan for 5mg daily but would wait for time being, check daily INR (11) DVT prophylaxis: - INR 3.2 Disposition: Resident of [facility] [facility] Total Time Total Time Spent Total Time Spent (In Minutes): 40 minutes Total Time Includes: Examination of the Patient, Discharge Planning, Medication Reconciliation and Communication With Other Providers Discharge Plan Discharge Items Patient Disposition: Transfer [facility] Reason For Visit: ACUTE ON CHRONIC RESPIRATORY FAILURE Condition on Discharge: Good Activity: Resume your previous activity Non-emergency contact: Primary Care Provider Follow-up/Referrals: Madi Castellanos [Primary Care Provider] - Cathryn Dean Of Admissions Provider Instructions: Medications: - COUMADIN: 5mg a day at 4pm, please check INR tomorrow morning prior to starting the Couamdin as her INR is 3.2 today - AMIODARONE: 200mg twice a day, for atrial fibrillation - CARVEDILOL: 3.125mg twice a day for atrial fibrillation - LASIX: dose increased to 40mg daily - REQUIP: dose increased to four times a day UTI ESBL E coli: completed 7 days of Ertapenem IV Pneumonia causing acute respiratory failure treated with broad spectrum antibiotics at first, tapered to just the Ertap enem since it could also treat the UTI great response, coughing less, less sputum, breathing back to normal no fever she has a leukocytosis but this is chronic, recommend follow up with Dr. Cheema as previously scheduled Acute diastolic heart failure treated with Lasix 20mg IV daily, responded quite well will continue on Lasix 40mg PO daily, increased from prior dose of 20mg Atrial fibrillation, resolved went into Afib with RVR, resolved with Amiodarone cardiology recommend Amiodarone 200mg BID and Coreg 3.125mg BID will need anticoagulation for stroke prevention previously on Xarelto but discussed with pharmacy, unsure it was actually therapeutic given her BMI changed to Coumadin started Coumadin on 07/18 -- 10mg 07/19 -- 10mg INR 1.2 07/20 -- no coumadin INR 2.2 07/21 -- no coumadin INR 3.2 would use 5mg a day but check INR daily or every other day this week Stand-Alone Forms: My [facility] Skilled Items Patient informed of condition?: Yes DNR: Yes Discharge Level of Care: Skilled Communicable Disease: No Discharge Prognosis: Stable Medications and DC Order Prescriptions: New furosemide 40 mg Tablet 40 mg PO QAM 30 Days Qty: 30 RF: 0 ropinirole 1 mg Tablet 1 mg PO QID 30 Days Qty: 120 RF: 0 amiodarone 200 mg Tablet 200 mg PO BIDM 30 Days Qty: 60 RF: 0 carvedilol 3.125 mg Tablet 3.125 mg PO BID 30 Days Qty: 60 RF: 0 warfarin [Coumadin] 5 mg tablet 5 mg PO DAILY Qty: 30 RF: 0 Continued multivitamin Tablet 1 tab PO QAM RF: 0 azelastine 137 mcg (0.1 %) Aerosol,[place] 2 spray INTRANASAL QAM RF: 0 albuterol sulfate [Ventolin HFA] 90 mcg/actuation Hfa Aerosol Inhaler 2 puff INHALATION Q4H PRN (Reason: COPD) RF: 0 fluticasone propionate [Flonase Allergy Relief] 50 mcg/actuation [place],Suspension 2 spray INTRANASAL DAILY RF: 0 acetaminophen 325 mg Capsule 650 mg PO Q6H MDD 3G PRN (Reason: Fever/pain) RF: 0 Restasis MultiDose 0.05 % Drops 1 drp OPHTHALMIC (EYE) BID RF: 0 lidocaine HCl 10 mg/mL (1 %) Solution 2.1 ml IM Q24H RF: 0 levothyroxine 50 mcg Tablet 50 mcg PO QAM RF: 0 budesonide 0.5 mg/2 mL suspension for nebulization 0.5 mg NEB Q12H RF: 0 gabapentin 100 mg capsule 200 mg PO BID RF: 0 oxycodone 10 mg Tablet 10 mg PO HS PRN (Reason: Pain management ) RF: 0 polyethylene glycol 3350 [Miralax] 17 gram powder in packet 17 g PO PM RF: 0 benzonatate [Tessalon Perles] 100 mg capsule 100 mg PO TID RF: 0 oxycodone 5 mg tablet 5 mg PO QAM PRN (Reason: Moderate) RF: 0 gabapentin 600 mg Tablet 600 mg PO HS RF: 0 allopurinol 100 mg Tablet 100 mg PO QAM RF: 0 fluticasone propion-salmeterol [Advair Diskus] 500-50 mcg/dose Blister With Device 1 inh INHALATION BID RF: 0 montelukast [Singulair] 10 mg Tablet 10 mg PO PM RF: 0 Prilosec OTC 20 mg Tablet,Delayed Release (Dr/Ec) 20 mg PO QAM RF: 0 Spiriva with HandiHaler 18 mcg Capsule, W/Inhalation Device 1 cap INHALATION QAM RF: 0 duloxetine 30 mg Capsule,Delayed Release(Dr/Ec) 30 mg PO HS RF: 0 albuterol sulfate 2.5 mg /3 mL (0.083 %) solution for nebulization 2.5 mg INH Q6H Qty: 90 RF: 0 docusate sodium 100 mg Capsule 100 mg PO BID RF: 0 acetaminophen [Tylenol Extra Strength] 500 mg Tablet 1,000 mg PO HS RF: 0 sodium chloride [[place] Nasal] 0.65 % Aerosol,[place] 1 spray INTRANASAL UD PRN (Reason: Dry Nasal Passages) RF: 0 diclofenac sodium [Voltaren] 1 % Gel 2 g TOPICAL BID RF: 0 fentanyl 37.5 mcg/hour Patch 72 Hour 1 patch TRANSDERMAL Q72H Qty: 1 RF: 0 Discontinued ceftriaxone 1 gram Recon Soln 1 g IM Q24H RF: 0 furosemide [Lasix] 20 mg tablet 20 mg PO QAM RF: 0 losartan 50 mg Tablet 50 mg PO QAM RF: 0 Xarelto 15 mg Tablet 15 mg PO PM RF: 0 ropinirole [Requip] 0.5 mg Tablet 1 mg PO TID RF: 0 Discharge Orders: Discharge Order (Routine); Ordered 07/21/19 Ordered By: Lukas Huddleston Admission Data Admit Date/Time: 07/14/19 14:52 Attending Provider: Lukas Huddleston Admit Provider: Elenita Anderson Primary Care Provider: Madi Castellanos Other Providers: Kt Zimmer ; Madi Castellanos ; Elenita Anderson ; Ronaldo Cheema V ; Richard Butt ; Chad Mccormick ; Jose Antonio Rodriguez ; Buddy Stout ; Ronaldo Pinedo ; Italo Fernando ; Shaun Allen Jr ; Jus Mendez ; Lay Martin ; Nilda Meier ; Simone Bustillos ; Andreas Marquez ; Bernabe Lambert ; Bear Ryder ; Amalia Melgar ; Ania Trammell Other Interventions: Discharge Summary Assessment (RN) Last Done: 07/21/19 12:41 DC Date/Time DO NOT enter until pt leaves facility: 07/21/19 15:54
== END 2019-07-21 15:54 | DRG 871 ==
LOC: ED 11:20 → 2E 14:52 → SUATTDRO 14:52 → 2E 15:23 → 1E 19:05 → 2S 07-15 14:54 → 4W 07-17 14:59
DX: G25.81 Restless legs syndrome; N18.3 Chronic kidney disease, stage 3 (moderate); B96.20 Unspecified Escherichia coli [E. coli] as the cause of diseases classified elsewhere; J96.20 Acute and chronic respiratory failure, unspecified whether with hypoxia or hypercapnia; N17.9 Acute kidney failure, unspecified; E88.09 Other disorders of plasma-protein metabolism, not elsewhere classified; D69.6 Thrombocytopenia, unspecified; N39.0 Urinary tract infection, site not specified; I48.0 Paroxysmal atrial fibrillation; Z85.3 Personal history of malignant neoplasm of breast; D53.9 Nutritional anemia, unspecified; J44.1 Chronic obstructive pulmonary disease with (acute) exacerbation; A41.9 Sepsis, unspecified organism; Z85.118 Personal history of other malignant neoplasm of bronchus and lung; I13.0 Hypertensive heart and chronic kidney disease with heart failure and stage 1 through stage 4 chronic kidney disease, or unspecified chronic kidney disease; Z66 Do not resuscitate; I50.33 Acute on chronic diastolic (congestive) heart failure; J18.9 Pneumonia, unspecified organism

== ENCOUNTER 2019-07-30 09:44 | Inpatient (IN) ==
[2019-07-30 11:06] LABS: Hematocrit (blood only) 30.7 % (37-47); Hemoglobin 9.8 g/dL (12.0-16.0); Mean Corpuscular Hemoglobin 33.9 pg (25-34); Mean Corpuscular Hgb Conc 31.9 g/dL (32-36); Mean Corpuscular Volume 106.2 fL (80-100); RDW Coefficient of Variation 17.7 % (11.5-14.5); RDW Standard Deviation 67.8 fL (36.4-46.3); Red Blood Count 2.89 M/uL (4.2-5.4); White Blood Count 7.64 K/uL (4.8-10.8)
[2019-07-30 11:14] LABS: BUN Creatinine Ratio 25.6 (10-20); Calcium 8.9 mg/dl (8.5-10.1); Creatinine Clr Calc Pharmacy 51.1 ml/min; Est GFR (African American) 55.3; Est GFR (Non-African American) 47.7; Potassium 3.7 mmol/L (3.5-5.1)
[2019-07-30 11:16] LABS: Prothrombin Time > 90.0 Seconds (9.0-12.0)
[2019-07-30 11:17] LABS: Bilirubin,Total 0.3 mg/dl (0.2-1); Globulin 3.1 gm/dl (2.5-4.0); Platelet Count 13 K/uL (130-400); Total Protein 6.1 gm/dl (6.4-8.2)
[2019-07-30 11:18] LABS: Basophils # (auto) 0.02 K/uL (0-0.2); Basophils % (auto) 0.3 %; Eosinophils # (auto) 0.07 K/uL (0-0.5); Eosinophils % (auto) 0.9 %; Immature Granulocytes # (auto) 0.06 K/uL (0.00-0.02); Immature Granulocytes % (auto) 0.8 %; Lymphocytes # (auto) 2.03 K/uL (1.2-3.4); Lymphocytes % (auto) 27.5 %; Monocytes # (auto) 1.05 K/uL (0.11-0.59); Monocytes % (auto) 14.2 %; Neutrophils # (auto) 4.14 K/uL (1.4-6.5); Neutrophils % (auto) 56.3 %; Platelet Estimate SIGNIFIC DECREASED (Normal)
[2019-07-30] MEDS ORDERED: SODIUM CHLORIDE 0.9% 250 ML IV PRN ×4 (11:24→18:07)
[2019-07-30 11:57] LABS: INR > 10.4 (0.9-1.1)
[2019-07-30] MEDS ORDERED: PHYTONADIONE 10 MG in SODIUM CHLORIDE 0.9% 50 ML IV ONE (11:57)
[2019-07-30 12:44] LABS: Fibrinogen 414 mg/dl (184-400)
[2019-07-30 12:54] LABS: D Dimer 710 ug/L FEU (0-500)
--- NOTE | 2019-07-30 16:21 | Emergency Department Note ---
Entered by Carmen Laughlin acting as a scribe for Ivan Cohen DO History of Present Illness General Chief complaint: Bleeding Source: patient Mode of arrival: wheelchair Limitations: no limitations History of Present Illness Onset (ago): hour(s) 6 Location: face (nose, lips) and mouth Radiation: non-radiation Pain Consistency: + constant Maximum Pain Intensity: 0 Associated symptoms: no cough (-rhinorrhea) Treatments prior to arrival: none The patient is an 88 year old female with a PMHX of Afib, CHF, CKD, COPD, lung cancer, respiratory failure and DVT who presents to the ED with complaints of bleeding. She was brought to the ED via EMS. EMS notes she is bleeding from the lips, mouth and nose. The bleeding started very early this morning. She denies any recent cough or rhinorrhea. She follows with Dr. Cheema for a history of lung cancer. Her most recent platelet count is 25,000. The patient does take daily Coumadin. She wears 4L NC chronically. Patient denies all other complaints including chest pain, shortness of breath, headache, change in vision, nausea vomiting or diarrhea. Home Medications Home Medications Medication Instructions Recorded Confirmed Type Prilosec OTC 20 mg PO QAM 09/07/18 07/30/19 History Spiriva with HandiHaler 1 cap INHALATION QAM 09/07/18 07/30/19 History allopurinol 100 mg PO QAM 09/07/18 07/30/19 History duloxetine 30 mg PO QPM 09/07/18 07/30/19 History gabapentin 600 mg PO HS 09/07/18 07/30/19 History montelukast [Singulair] 10 mg PO PM 09/07/18 07/30/19 History albuterol sulfate 2.5 mg INH Q6H #90 ml 09/11/18 07/30/19 Rx Restasis MultiDose 1 drp OPHTHALMIC (EYE) BID 11/06/18 07/30/19 History acetaminophen 325 - 650 mg PO Q6H PRN MDD 3G 11/06/18 07/30/19 History albuterol sulfate [Ventolin HFA] 2 puff INHALATION Q4H PRN 11/06/18 07/30/19 History azelastine 2 spray INTRANASAL QAM 11/06/18 07/30/19 History fluticasone propionate [Flonase 2 spray INTRANASAL DAILY 11/06/18 07/30/19 History Allergy Relief] multivitamin 1 tab PO QAM 11/06/18 07/30/19 History acetaminophen [Tylenol Extra 1,000 mg PO HS 02/02/19 07/30/19 History Strength] diclofenac sodium [Voltaren] 2 g TOPICAL BID 02/02/19 07/30/19 History sodium chloride [[place] Nasal] 1 spray INTRANASAL UD PRN 02/02/19 07/30/19 History fentanyl 1 patch TRANSDERMAL Q72H #1 ea 02/08/19 07/30/19 Rx benzonatate [Tessalon Perles] 100 mg PO TID 07/14/19 07/30/19 History budesonide [Pulmicort] 0.5 mg NEB Q12H 07/14/19 07/30/19 History gabapentin 200 mg PO BID 07/14/19 07/30/19 History oxycodone 5 mg PO QAM PRN 07/14/19 07/30/19 History oxycodone 10 mg PO HS PRN 07/14/19 07/30/19 History polyethylene glycol 3350 [Miralax] 17 g PO PM 07/14/19 07/30/19 History amiodarone 200 mg PO BIDM 30 Days #60 tab 07/21/19 07/30/19 Rx carvedilol 3.125 mg PO BID 30 Days #60 tab 07/21/19 07/30/19 Rx furosemide 40 mg PO QAM 30 Days #30 tab 07/21/19 07/30/19 Rx ropinirole 1 mg PO QID 30 Days #120 tab 07/21/19 07/30/19 Rx warfarin [Coumadin] 5 mg PO DAILY #30 tab 07/21/19 07/30/19 Rx bisacodyl 10 mg [place] DAILY PRN 07/30/19 07/30/19 History fluticasone propion-salmeterol 1 puff INHALATION Q12H 07/30/19 07/30/19 History [Advair Diskus] levothyroxine 75 mcg PO DAILY 07/30/19 07/30/19 History oxycodone 5 mg PO DAILY 07/30/19 07/30/19 History sodium phosphates [Fleet Enema] 118 ml [place] DAILY PRN 07/30/19 07/30/19 History Allergies Allergy/AdvReac Type Severity Reaction Status Date / Time enoxaparin Allergy Intermediate RASH, Verified 07/30/19 11:05 PRURITUS Past Med/Surg History Medical History Chronic back pain RLS (restless legs syndrome) Chronic diastolic CHF (congestive heart failure) (Chronic) COPD exacerbation (Acute) Hypoxia (Acute) Hypertension (Chronic) Asthma (Chronic) CKD (chronic kidney disease), stage III (Chronic) DCIS (ductal carcinoma in situ) (~2012) Deep vein blood clot of right lower extremity History of pulmonary embolism Lung cancer (~2010) Spasmodic dysphonia Surgical History H/O mastectomy History of back surgery Hx of appendectomy Hx of hernia repair Hx of hysterectomy Hx of resection of liver Hx of total knee replacement Family History Other Family history non-contributory Social History Preferred Language: Portuguese Communication Ability: Effective New Car Inspector Required: No Beliefs That Will Affect Care: None Current Living Situation: Care Home Feels Safe at Home: Yes Smoking Status: Never smoker Second Hand Exposure: No ; Hx Alcohol Use: No Hx Substance Use: No Review of Systems See HPI for pertinent positives & negatives. and A total of 10 systems reviewed and were otherwise negative Physical Exam Vital Signs Vital Signs - 24 hr 07/30/19 09:32 07/30/19 09:52 07/30/19 09:53 Temperature Temperature Source Sepsis Recent Fever Within 48 Hours Sepsis New/Unexplained Change in Mental Status Sepsis Action Taken by Nursing Oxygen Flow Rate - Titration 4 Pulse Oximetry Post Tiitration 95 Pulse Rate 88 119 H Pulse Rate from SpO2 Sensor 70 76 Respiratory Rate 22 23 Blood Pressure 124/52 L Blood Pressure Mean 76 Pulse Oximetry 86 L 89 L 91 Oxygen Delivery Method Room Air Nasal Cannula Oxygen Flow Rate 0 07/30/19 09:55 07/30/19 10:00 07/30/19 10:30 Temperature 37.1 C Temperature Source Oral Sepsis Recent Fever Within 48 Hours No Sepsis New/Unexplained Change in Mental Status No Sepsis Action Taken by Nursing No Action Required Oxygen Flow Rate - Titration Pulse Oximetry Post Tiitration Pulse Rate 90 65 83 Pulse Rate from SpO2 Sensor 70 83 Respiratory Rate 18 19 16 Blood Pressure 124/52 L Blood Pressure Mean 76 Pulse Oximetry 96 95 90 Oxygen Delivery Method Nasal Cannula Oxygen Flow Rate 4 07/30/19 10:44 07/30/19 11:00 07/30/19 11:30 Temperature Temperature Source Sepsis Recent Fever Within 48 Hours Sepsis New/Unexplained Change in Mental Status Sepsis Action Taken by Nursing Oxygen Flow Rate - Titration Pulse Oximetry Post Tiitration Pulse Rate 77 72 Pulse Rate from SpO2 Sensor 74 Respiratory Rate 18 22 Blood Pressure Blood Pressure Mean Pulse Oximetry 95 95 Oxygen Delivery Method Nasal Cannula Oxygen Flow Rate 4 07/30/19 12:00 07/30/19 12:10 07/30/19 12:14 Temperature 36.6 C Temperature Source Oral Sepsis Recent Fever Within 48 Hours Sepsis New/Unexplained Change in Mental Status Sepsis Action Taken by Nursing Oxygen Flow Rate - Titration Pulse Oximetry Post Tiitration Pulse Rate 64 85 72 Pulse Rate from SpO2 Sensor 64 80 Respiratory Rate 18 17 20 Blood Pressure 105/56 L 105/56 L Blood Pressure Mean 72 72 Pulse Oximetry 93 95 96 Oxygen Delivery Method Oxygen Flow Rate 4 07/30/19 12:16 07/30/19 12:30 07/30/19 12:45 Temperature 36.4 C L 36.5 C Temperature Source Oral Oral Sepsis Recent Fever Within 48 Hours Sepsis New/Unexplained Change in Mental Status Sepsis Action Taken by Nursing Oxygen Flow Rate - Titration Pulse Oximetry Post Tiitration Pulse Rate 63 67 82 Pulse Rate from SpO2 Sensor 68 72 Respiratory Rate 20 19 18 Blood Pressure 118/55 L 119/63 111/52 L Blood Pressure Mean 76 81 71 Pulse Oximetry 96 92 93 Oxygen Delivery Method Oxygen Flow Rate 4 4 07/30/19 12:47 07/30/19 13:00 07/30/19 13:01 Temperature Temperature Source Sepsis Recent Fever Within 48 Hours Sepsis New/Unexplained Change in Mental Status Sepsis Action Taken by Nursing Oxygen Flow Rate - Titration Pulse Oximetry Post Tiitration Pulse Rate 78 95 H 69 Pulse Rate from SpO2 Sensor 79 65 72 Respiratory Rate 20 23 23 Blood Pressure 111/52 L Blood Pressure Mean 71 55 Pulse Oximetry 91 92 90 Oxygen Delivery Method Oxygen Flow Rate 07/30/19 13:15 07/30/19 13:16 07/30/19 13:19 Temperature 36.6 C Temperature Source Oral Sepsis Recent Fever Within 48 Hours Sepsis New/Unexplained Change in Mental Status Sepsis Action Taken by Nursing Oxygen Flow Rate - Titration Pulse Oximetry Post Tiitration Pulse Rate 68 68 62 Pulse Rate from SpO2 Sensor 64 62 Respiratory Rate 18 18 16 Blood Pressure 111/53 L 76/37 L 111/53 L Blood Pressure Mean 72 50 72 Pulse Oximetry 94 91 92 Oxygen Delivery Method Oxygen Flow Rate 4 07/30/19 13:30 07/30/19 13:34 07/30/19 13:46 Temperature 36.6 C 36.7 C Temperature Source Oral Oral Sepsis Recent Fever Within 48 Hours Sepsis New/Unexplained Change in Mental Status Sepsis Action Taken by Nursing Oxygen Flow Rate - Titration Pulse Oximetry Post Tiitration Pulse Rate 77 60 62 Pulse Rate from SpO2 Sensor 68 60 62 Respiratory Rate 23 15 21 Blood Pressure 111/53 L 119/46 L 127/58 L Blood Pressure Mean 72 70 81 Pulse Oximetry 89 L 91 90 Oxygen Delivery Method Oxygen Flow Rate 4 4 07/30/19 13:50 07/30/19 14:00 07/30/19 14:01 Temperature 36.5 C 36.5 C Temperature Source Oral Oral Sepsis Recent Fever Within 48 Hours Sepsis New/Unexplained Change in Mental Status Sepsis Action Taken by Nursing Oxygen Flow Rate - Titration Pulse Oximetry Post Tiitration Pulse Rate 62 59 L 60 Pulse Rate from SpO2 Sensor 59 L Respiratory Rate 18 21 18 Blood Pressure 128/48 L 129/51 L Blood Pressure Mean 74 77 Pulse Oximetry 92 86 L 94 Oxygen Delivery Method Oxygen Flow Rate 4 4 07/30/19 14:02 07/30/19 14:30 07/30/19 14:31 Temperature 36.6 C Temperature Source Oral Sepsis Recent Fever Within 48 Hours Sepsis New/Unexplained Change in Mental Status Sepsis Action Taken by Nursing Oxygen Flow Rate - Titration Pulse Oximetry Post Tiitration Pulse Rate 58 L 76 60 Pulse Rate from SpO2 Sensor 59 L 61 Respiratory Rate 20 25 H 18 Blood Pressure 128/48 L 111/49 L Blood Pressure Mean 74 69 Pulse Oximetry 89 L 91 93 Oxygen Delivery Method Oxygen Flow Rate 4 07/30/19 14:32 07/30/19 15:00 07/30/19 15:01 Temperature Temperature Source Sepsis Recent Fever Within 48 Hours Sepsis New/Unexplained Change in Mental Status Sepsis Action Taken by Nursing Oxygen Flow Rate - Titration Pulse Oximetry Post Tiitration Pulse Rate 64 62 64 Pulse Rate from SpO2 Sensor 64 62 64 Respiratory Rate 18 17 18 Blood Pressure 111/49 L 118/47 L Blood Pressure Mean 69 70 Pulse Oximetry 88 L 98 100 Oxygen Delivery Method Oxygen Flow Rate 07/30/19 15:11 07/30/19 15:19 07/30/19 15:30 Temperature 36.4 C L Temperature Source Oral Sepsis Recent Fever Within 48 Hours Sepsis New/Unexplained Change in Mental Status Sepsis Action Taken by Nursing Oxygen Flow Rate - Titration Pulse Oximetry Post Tiitration Pulse Rate 61 61 76 Pulse Rate from SpO2 Sensor 61 63 Respiratory Rate 22 16 15 Blood Pressure 114/48 L 114/48 L Blood Pressure Mean 70 70 Pulse Oximetry 99 99 98 Oxygen Delivery Method Oxygen Flow Rate 07/30/19 16:00 07/30/19 16:01 Temperature Temperature Source Sepsis Recent Fever Within 48 Hours Sepsis New/Unexplained Change in Mental Status Sepsis Action Taken by Nursing Oxygen Flow Rate - Titration Pulse Oximetry Post Tiitration Pulse Rate 68 66 Pulse Rate from SpO2 Sensor 80 66 Respiratory Rate 26 H 21 Blood Pressure 133/53 L Blood Pressure Mean 79 Pulse Oximetry 97 97 Oxygen Delivery Method Oxygen Flow Rate GENERAL: Patient is sitting up in bed, alert, chronically-ill appearing, on 4L NC EYE EXAM: normal conjunctiva, PERRL and EOM's grossly intact FACE: Dried blood around left eye. Dried blood in bilateral nares. OROPHARYNX: Petechiae and bruising on inside of mouth, bleeding from left corner of the mouth no exudate NECK: supple, no nuchal rigidity, no adenopathy, non-tender LUNGS: Breath sounds are distant and diminished bilaterally. Normal chest wall mechanics HEART: no murmurs, S1 normal and S2 normal ABDOMEN: abdomen soft, non-tender, normo-active bowel sounds, no masses, no yunier ound or guarding. BACK: Back is symmetrical on inspection and there is no deformity, no midline tenderness, no CVA tenderness. SKIN: Petechiae on abdomen UPPER EXTREMITIES: upper extremities are grossly normal. LOWER EXTREMITIES: No pitting edema. NEURO EXAM: Normal sensorium, cranial nerves II-XII grossly intact, normal speech, no gross weakness of arms, no gross weakness of legs. Gross sensation intact. Course ED COURSE: Vital signs were reviewed and showed the patient is hypotensive. The patients medical record was reviewed The above diagnostic studies were performed and reviewed. ED treatments and interventions as stated above. 1015: The patient was evaluated in room A3. A complete history and physical examination was performed. 1132: I discussed the patients case with Dr. Vazquez, [facility] Hematology and Oncology. 1149: I discussed the patients case with Dr. Lina Michaud, [facility] Hospitalist. The patient will be further evaluated. 1155: Upon reevaluation, the patient is resting comfortably. I discussed my findings with the patient and she understands and agrees with the treatment plan. 1229; I discussed the patients case with Dr. Lina Michaud. He is concerned about DIC, recommended FFP. Based on the patients age, coexisting illnesses, exam and lab findings the decision to treat as an inpatient was made. The patient remained stable while under my care. The patient will be evaluated for further management. Administered Medications Discontinued Medications Phytonadione 10 mg/ Sodium (Chloride) 51 mls @ 102 mls/hr IV ONE ONE Stop: 07/30/19 12:26 Last Infusion: 07/30/19 14:37 Dose: 0 mls/hr Documented by: [id number] Admin: 07/30/19 14:07 Dose: 102 mls/hr Documented by: [id number] Medical Decision Making Differential Diagnosis Differential diagnosis includes etiologies such as diverticulosis, AVM, coagulopathy, colitis, inflammatory bowel disease, malignancy, Joan-Elizondo tear, esophagitis, peptic ulcer disease, variceal bleed, gastritis, epistaxis, fissure, hemorrhoids, as well as others were entertained. Medical Records Attestation: I reviewed the patient's medical records. Home Medications Current Medication List: was personally reviewed by me Laboratory Data Attestation: I reviewed the patient's lab results. Result diagrams: 07/30/19 10:43 07/30/19 10:43 Lab Results 07/30/19 07/30/19 07/30/19 Range/Units 10:43 10:43 10:43 WBC 7.64 (4.8-10.8) K/uL RBC 2.89 L (4.2-5.4) M/uL Hgb 9.8 L (12.0-16.0) g/dL Hct 30.7 L (37-47) % MCV 106.2 H (80-100) fL MCH 33.9 (25-34) pg MCHC 31.9 L (32-36) g/dL RDW Std Deviation 67.8 H (36.4-46.3) fL RDW Coeff of Marta 17.7 H (11.5-14.5) % Plt Count 13 L* (130-400) K/uL Immature Gran % (Auto) 0.8 % Neut % (Auto) 56.3 % Lymph % (Auto) 27.5 % [place] % (Auto) 14.2 % Eos % (Auto) 0.9 % Baso % (Auto) 0.3 % Immature Gran # (Auto) 0.06 H (0.00-0.02) K/uL Neut # (Auto) 4.14 (1.4-6.5) K/uL Lymph # (Auto) 2.03 (1.2-3.4) K/uL [place] # (Auto) 1.05 H (0.11-0.59) K/uL Eos # (Auto) 0.07 (0-0.5) K/uL Baso # (Auto) 0.02 (0-0.2) K/uL Platelet Estimate SIGNIFIC DECREASED (Normal) PT > 90.0 H (9.0-12.0) Seconds INR > 10.4 H* (0.9-1.1) Fibrinogen (184-400) mg/dl D-Dimer (0-500) ug/L FEU Sodium 141 (136-145) mmol/L Potassium 3.7 (3.5-5.1) mmol/L Chloride 100 (98-107) mmol/L Carbon Dioxide 38 H (21-32) mmol/L Anion Gap 3.0 (3-11) BUN 27 H (7-18) mg/dl Creatinine 1.05 (0.6-1.2) mg/dl Est Cr Clr Drug Dosing 51.1 ml/min Est GFR ( Amer) 55.3 Est GFR (Non-Af Amer) 47.7 BUN/Creatinine Ratio 25.6 H (10-20) Glucose 128 H (70-99) mg/dl Calcium 8.9 (8.5-10.1) mg/dl Total Bilirubin 0.3 (0.2-1) mg/dl AST 13 L (15-37) U/L ALT 18 (12-78) U/L Alkaline Phosphatase 86 (45-117) U/L Lactate Dehydrogenase (84-246) U/L Total Protein 6.1 L (6.4-8.2) gm/dl Albumin 3.0 L (3.4-5.0) gm/dl Globulin 3.1 (2.5-4.0) gm/dl Albumin/Globulin Ratio 1.0 (0.9-2) Blood Type Antibody Screen Crossmatch 07/30/19 07/30/19 07/30/19 Range/Units 10:43 11:38 11:43 WBC (4.8-10.8) K/uL RBC (4.2-5.4) M/uL Hgb (12.0-16.0) g/dL Hct (37-47) % MCV (80-100) fL MCH (25-34) pg MCHC (32-36) g/dL RDW Std Deviation (36.4-46.3) fL RDW Coeff of Marta (11.5-14.5) % Plt Count (130-400) K/uL Immature Gran % (Auto) % Neut % (Auto) % Lymph % (Auto) % [place] % (Auto) % Eos % (Auto) % Baso % (Auto) % Immature Gran # (Auto) (0.00-0.02) K/uL Neut # (Auto) (1.4-6.5) K/uL Lymph # (Auto) (1.2-3.4) K/uL [place] # (Auto) (0.11-0.59) K/uL Eos # (Auto) (0-0.5) K/uL Baso # (Auto) (0-0.2) K/uL Platelet Estimate (Normal) PT (9.0-12.0) Seconds INR (0.9-1.1) Fibrinogen 414 H (184-400) mg/dl D-Dimer 710 H* (0-500) ug/L FEU Sodium (136-145) mmol/L Potassium (3.5-5.1) mmol/L Chloride (98-107) mmol/L Carbon Dioxide (21-32) mmol/L Anion Gap (3-11) BUN (7-18) mg/dl Creatinine (0.6-1.2) mg/dl Est Cr Clr Drug Dosing ml/min Est GFR ( Amer) Est GFR (Non-Af Amer) BUN/Creatinine Ratio (10-20) Glucose (70-99) mg/dl Calcium (8.5-10.1) mg/dl Total Bilirubin (0.2-1) mg/dl AST (15-37) U/L ALT (12-78) U/L Alkaline Phosphatase (45-117) U/L Lactate Dehydrogenase 155 (84-246) U/L Total Protein (6.4-8.2) gm/dl Albumin (3.4-5.0) gm/dl Globulin (2.5-4.0) gm/dl Albumin/Globulin Ratio (0.9-2) Blood Type A Positive Antibody Screen NEGATIVE Crossmatch See Detail Blood Pressure Blood Pressure Findings: Low blood pressure MDM Narrative Patient is an 88-year-old female who presents the ER from bleeding from her nose, left eye and on her lips. On exam she has petechiae on her abdomen. 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 IV was established blood work was obtained and showed no significant leukocytosis. Chronic anemia at 9.8. Severe thrombocytopenia at 13. INR was greater than 10.4. PT was elevated greater than 90. She does take Coumadin. BMP was unremarkable. LFTs and bilirubin was unremarkable. Patient was typed and crossed. She was given a unit of platelets while in the ER. She was given 10 units IV vitamin K. I did discuss with the hospitalist to recommend FFP and patient was ordered 2 units of FFP. I also discussed with hematology oncology initially prior to the result of the INR. After discussion with the hospitalist there is concern for DIC. Her bilirubin was not elevated but I did order LDH, fibrinogen and d-dimer. D-dimer was slightly elevated. There is no anemia. Fibrinogen was mildly elevated in the low 400s. LDH was not elevated. Patient was evaluated by hospitalist and admitted for further work-up. She was monitored closely while in the ER. Impression & Plan Thrombocytopenia, Anemia, Epistaxis, Elevated INR Critical Care Time Critical Care Time: Yes Total Critical Care Time: 75 I have personally spent 75 minutes of critical care time in the direct management of this patient. This includes bedside care, interpretation of diagnostic studies, and testing, discussion with consultants, patient, and family members, and other required patient management activities. This 75 minutes is in excess of all separately billable procedures. Discharge Plan Visit Data Chief Complaint: Bleeding ED Provider: Ivan Cohen Discharge Problem: Thrombocytopenia, Anemia, Epistaxis, Elevated INR Patient Disposition: Being Evaluated by Hospitalist Forms Stand Alone Forms: [facility] Prescriptions Prescriptions: No Action multivitamin Tablet 1 tab PO QAM RF: 0 azelastine 137 mcg (0.1 %) Aerosol,[place] 2 spray INTRANASAL QAM RF: 0 albuterol sulfate [Ventolin HFA] 90 mcg/actuation Hfa Aerosol Inhaler 2 puff INHALATION Q4H PRN (Reason: COPD) RF: 0 fluticasone propionate [Flonase Allergy Relief] 50 mcg/actuation [place],Suspension 2 spray INTRANASAL DAILY RF: 0 acetaminophen 325 mg Capsule 325 - 650 mg PO Q6H MDD 3G PRN (Reason: Fever/pain) RF: 0 Restasis MultiDose 0.05 % Drops 1 drp OPHTHALMIC (EYE) BID RF: 0 budesonide [Pulmicort] 0.5 mg/2 mL suspension for nebulization 0.5 mg NEB Q12H RF: 0 gabapentin 100 mg capsule 200 mg PO BID RF: 0 oxycodone 10 mg Tablet 10 mg PO HS PRN (Reason: Pain management ) RF: 0 polyethylene glycol 3350 [Miralax] 17 gram powder in packet 17 g PO PM RF: 0 benzonatate [Tessalon Perles] 100 mg capsule 100 mg PO TID RF: 0 oxycodone 5 mg tablet 5 mg PO QAM PRN (Reason: Moderate) RF: 0 furosemide 40 mg Tablet 40 mg PO QAM 30 Days Qty: 30 RF: 0 ropinirole 1 mg Tablet 1 mg PO QID 30 Days Qty: 120 RF: 0 amiodarone 200 mg Tablet 200 mg PO BIDM 30 Days Qty: 60 RF: 0 carvedilol 3.125 mg Tablet 3.125 mg PO BID 30 Days Qty: 60 RF: 0 warfarin [Coumadin] 5 mg tablet 5 mg PO DAILY Qty: 30 RF: 0 fluticasone propion-salmeterol [Advair Diskus] 100-50 mcg/dose Blister With Device 1 puff INHALATION Q12H RF: 0 levothyroxine 75 mcg Tablet 75 mcg PO DAILY RF: 0 bisacodyl 10 mg Suppository 10 mg [place] DAILY PRN (Reason: Constipation) RF: 0 Fleet Enema 19-7 gram/118 mL Enema 118 ml [place] DAILY PRN (Reason: Constipation) RF: 0 oxycodone 5 mg Tablet 5 mg PO DAILY RF: 0 gabapentin 600 mg Tablet 600 mg PO HS RF: 0 allopurinol 100 mg Tablet 100 mg PO QAM RF: 0 montelukast [Singulair] 10 mg Tablet 10 mg PO PM RF: 0 Prilosec OTC 20 mg Tablet,Delayed Release (Dr/Ec) 20 mg PO QAM RF: 0 Spiriva with HandiHaler 18 mcg Capsule, W/Inhalation Device 1 cap INHALATION QAM RF: 0 duloxetine 30 mg Capsule,Delayed Release(Dr/Ec) 30 mg PO QPM RF: 0 albuterol sulfate 2.5 mg /3 mL (0.083 %) solution for nebulization 2.5 mg INH Q6H Qty: 90 RF: 0 acetaminophen [Tylenol Extra Strength] 500 mg Tablet 1,000 mg PO HS RF: 0 sodium chloride [[place] Nasal] 0.65 % Aerosol,[place] 1 spray INTRANASAL UD PRN (Reason: Dry Nasal Passages) RF: 0 diclofenac sodium [Voltaren] 1 % Gel 2 g TOPICAL BID RF: 0 fentanyl 37.5 mcg/hour Patch 72 Hour 1 patch TRANSDERMAL Q72H Qty: 1 RF: 0 Referrals Referrals: Madi Castellanos [Primary Care Provider] - The scribe's documentation has been prepared under my direction and personally reviewed by me in its entirety. I confirm that the note above accurately reflects all work, treatment, procedures, and medical decision making performed by me.
--- NOTE | 2019-07-30 16:28 | Hospitalist Progress Note ---
Date of Service July 30, 2019 Assessment & Plan (1) Thrombocytopenia: (2) Anemia: (3) Epistaxis: (4) Elevated INR: Per Thrombocytopenia, anemia, epistaxis, elevated INR admit PCU INR was >10.4 on admission, platelets 13,000, fibrinogen 414, d-dimer 710 Given 10 mg IV vitamin K, FFP, and platelets in the ED Hgb stable at 9.8 - will recheck, bleeding from mouth, left eye and epistaxis appears to have stopped at this point Consult hematology (5) PAF (paroxysmal atrial fibrillation): (6) History of pulmonary embolism: (7) Diastolic CHF: (8) COPD (chronic obstructive pulmonary disease): Subjective Ms. Mendez came to the emergency department secondary to epistaxis and bleeding at the mouth. She also has had a cough for some time and was discharged a week ago from [facility] for pneumonia. In the ED she was found to have a supratherapeutic INR and severe thrombocytopenia. She was evaluated in the past for leukemia vs myelodysplasia but decided not to have a bone marrow biopsy. She denies any other s/s of bleeding such as melena, hematochezia, hematuria, or excessive bruising. No recent fevers, aches or chills. No cp or dizziness Pmhx: Chronic Respiratory Failure on 4 L Baseline, COPD, Diastolic CHF, HTN, CKD III, Macrocytic Anemia, H/O DVT/PE, H/O Breast CA/Lung CA S/P RUL Wedge Resection Social: never smoker, no alcohol, lives at [facility] Family: non contributory due to advanced age Review of Systems Review of Systems: All systems reviewed & are unremarkable except as noted in HPI & below Physical Exam Physical Exam: General: no distress Eyes: normal inspection, PERLL, scabbing left lower eyelid Respiratory: chest non tender, course bases bilaterally, no respiratory distress, somewhat labored breathing Cardiac: regular rate and rhythm, no rub or gallop, systolic murmur, pitting edema bilateral lower extremities GI/: active bowel sounds, no abd pain or tenderness, soft, non distended Extremities: normal range of motion, normal strength, non tender Neuro/Psych: alert and oriented x 3, normal mood and affect Skin: bilateral lower extremities with venous stasis changes and erythema (patient reports this is her baseline), dry blood in both nares, dried blood at corners of mouth Results & Data Vital Signs (Past 12 Hours) Vital Signs Temp Pulse Resp BP Pulse Ox 07/30/19 16:24 36.6 C 63 22 128/47 L 97 07/30/19 16:01 66 21 133/53 L 97 07/30/19 16:00 68 26 H 97 07/30/19 15:30 76 15 98 07/30/19 15:19 61 16 114/48 L 99 07/30/19 15:11 36.4 C L 61 22 114/48 L 99 07/30/19 15:01 64 18 118/47 L 100 07/30/19 15:00 62 17 98 07/30/19 14:32 64 18 111/49 L 88 L 07/30/19 14:31 36.6 C 60 18 111/49 L 93 07/30/19 14:30 76 25 H 91 07/30/19 14:02 58 L 20 128/48 L 89 L 07/30/19 14:01 36.5 C 60 18 129/51 L 94 07/30/19 14:00 59 L 21 86 L 07/30/19 13:50 36.5 C 62 18 128/48 L 92 07/30/19 13:46 36.7 C 62 21 127/58 L 90 07/30/19 13:34 60 15 119/46 L 91 07/30/19 13:30 36.6 C 77 23 111/53 L 89 L 07/30/19 13:19 62 16 111/53 L 92 07/30/19 13:16 68 18 76/37 L 91 07/30/19 13:15 36.6 C 68 18 111/53 L 94 07/30/19 13:01 69 23 90 07/30/19 13:00 95 H 23 92 07/30/19 12:47 78 20 111/52 L 91 07/30/19 12:45 36.5 C 82 18 111/52 L 93 07/30/19 12:30 36.4 C L 67 19 119/63 92 07/30/19 12:16 63 20 118/55 L 96 07/30/19 12:14 36.6 C 72 20 105/56 L 96 07/30/19 12:10 85 17 105/56 L 95 07/30/19 12:00 64 18 93 09/17/19 11:30 72 22 95 07/30/19 11:00 77 18 07/30/19 10:44 95 07/30/19 10:30 83 16 90 07/30/19 10:00 65 19 95 07/30/19 09:55 37.1 C 90 18 124/52 L 96 07/30/19 09:53 119 H 23 91 07/30/19 09:52 88 22 124/52 L 89 L 07/30/19 09:32 86 L PG Care Time/CCT Total # of Minutes Spent Total Time Spent with Patient: Total time spent is greater than 50% in coordination of care (as documented) at patient's floor/unit and/or counseling patient: (1) Anemia Anemia type: unspecified type Qualified Code(s): D64.9 - Anemia, unspecified (2) Diastolic CHF Heart failure chronicity: acute on chronic Qualified Code(s): I50.33 - Acute on chronic diastolic (congestive) heart failure
--- NOTE | 2019-07-30 16:57 | History & Physical Report ---
Date of Service July 30, 2019 Assessment & Plan (1) Thrombocytopenia: (2) Anemia: (3) Epistaxis: (4) Elevated INR: Per Thrombocytopenia, anemia, epistaxis, elevated INR admit PCU Patient had started warfarin INR was >10.4 on admission, platelets 13,000, fibrinogen 414, d-dimer 710 Given 10 mg IV vitamin K, FFP, and platelets in the ED Hgb stable at 9.8 - will recheck, bleeding from mouth, left eye and nares appears to have stopped at this point Peripheral smear to look for schistocytes CT head and chest pending Consult hematology (5) PAF (paroxysmal atrial fibrillation): Continue rate control with Coreg Hold warfarin (6) History of pulmonary embolism: Last admission - treated for possible PE with heparin drip and converted to Coumadin. Thought that maybe patient was undertreated with her NOAC due to her large BMI. At that time, given the rapid nature of her respiratory compromise there was concern for possible PE however CTA was deferred due to slightly worsened renal function from baseline as well as a VQ scan being nondiagnostic given her chronic conditions/plus inability to perform test adequately due to respiratory compromise - Hold warfarin (7) Diastolic CHF: chronic awaiting CT chest but does not appear to be currently in exacerbation continue Coreg, furosemide (8) COPD (chronic obstructive pulmonary disease): continue home inhalers, home O2 4L, montelukast (9) Chronic low back pain: continue home pain regimen - 5 mg oxycodone qam prn, 10 mg po qhs prn, 5 mg po daily and fentanyl patch (10) Neuropathy: Continue duloxetine, gabapentin (11) Hypothyroid: continue levothyroxine (12) DVT prophylaxis: SCDs. History of Present Illness Ms. Mendez came to the emergency department secondary to epistaxis and bleeding at the mouth. She also has had a cough for some time and was discharged a week ago from [facility] for pneumonia. In the ED she was found to have a supratherapeutic INR and severe thrombocytopenia. She was evaluated in the past for leukemia vs myelodysplasia but decided not to have a bone marrow biopsy. She denies any other s/s of bleeding such as melena, hematochezia, hematuria, or excessive bruising. No recent fevers, aches or chills. No cp or dizziness Pmhx: Chronic Respiratory Failure on 4 L Baseline, COPD, Diastolic CHF, HTN, CKD III, Macrocytic Anemia, H/O DVT/PE, H/O Breast CA/Lung CA S/P RUL Wedge Resection Social: never smoker, no alcohol, lives at [facility] Family: non contributory due to advanced age Primary Care Provider: [facility] Allergies Allergy/AdvReac Type Severity Reaction Status Date / Time enoxaparin Allergy Intermediate RASH, Verified 07/30/19 11:05 PRURITUS Home Medications Home Medications Medication Instructions Recorded Confirmed Type Prilosec OTC 20 mg PO QAM 09/07/18 07/30/19 History Spiriva with HandiHaler 1 cap INHALATION QAM 09/07/18 07/30/19 History allopurinol 100 mg PO QAM 09/07/18 07/30/19 History duloxetine 30 mg PO QPM 09/07/18 07/30/19 History gabapentin 600 mg PO HS 09/07/18 07/30/19 History montelukast [Singulair] 10 mg PO PM 09/07/18 07/30/19 History albuterol sulfate 2.5 mg INH Q6H #90 ml 09/11/18 07/30/19 Rx Restasis MultiDose 1 drp OPHTHALMIC (EYE) BID 11/06/18 07/30/19 History acetaminophen 325 - 650 mg PO Q6H PRN MDD 3G 11/06/18 07/30/19 History albuterol sulfate [Ventolin HFA] 2 puff INHALATION Q4H PRN 11/06/18 07/30/19 History azelastine 2 spray INTRANASAL QAM 11/06/18 07/30/19 History fluticasone propionate [Flonase 2 spray INTRANASAL DAILY 11/06/18 07/30/19 H istory Allergy Relief] multivitamin 1 tab PO QAM 11/06/18 07/30/19 History acetaminophen [Tylenol Extra 1,000 mg PO HS 02/02/19 07/30/19 History Strength] diclofenac sodium [Voltaren] 2 g TOPICAL BID 02/02/19 07/30/19 History sodium chloride [[place]aton Nasal] 1 spray INTRANASAL UD PRN 02/02/19 07/30/19 History fentanyl 1 patch TRANSDERMAL Q72H #1 ea 02/08/19 07/30/19 Rx benzonatate [Tessalon Perles] 100 mg PO TID 07/14/19 07/30/19 History budesonide [Pulmicort] 0.5 mg NEB Q12H 07/14/19 07/30/19 History gabapentin 200 mg PO BID 07/14/19 07/30/19 History oxycodone 5 mg PO QAM PRN 07/14/19 07/30/19 History oxycodone 10 mg PO HS PRN 07/14/19 07/30/19 History polyethylene glycol 3350 [Miralax] 17 g PO PM 07/14/19 07/30/19 History amiodarone 200 mg PO BIDM 30 Days #60 tab 07/21/19 07/30/19 Rx carvedilol 3.125 mg PO BID 30 Days #60 tab 07/21/19 07/30/19 Rx furosemide 40 mg PO QAM 30 Days #30 tab 07/21/19 07/30/19 Rx ropinirole 1 mg PO QID 30 Days #120 tab 07/21/19 07/30/19 Rx warfarin [Coumadin] 5 mg PO DAILY #30 tab 07/21/19 07/30/19 Rx bisacodyl 10 mg IA DAILY PRN 07/30/19 07/30/19 History fluticasone propion-salmeterol 1 puff INHALATION Q12H 07/30/19 07/30/19 History [Advair Diskus] levothyroxine 75 mcg PO DAILY 07/30/19 07/30/19 History oxycodone 5 mg PO DAILY 07/30/19 07/30/19 History sodium phosphates [Fleet Enema] 118 ml IA DAILY PRN 07/30/19 07/30/19 History Past Med/Surg History Medical History Chronic back pain RLS (restless legs syndrome) Chronic diastolic CHF (congestive heart failure) (Chronic) COPD exacerbation (Acute) Hypoxia (Acute) Hypertension (Chronic) Asthma (Chronic) CKD (chronic kidney disease), stage III (Chronic) DCIS (ductal carcinoma in situ) (~2012) Deep vein blood clot of right lower extremity History of pulmonary embolism Lung cancer (~2010) Spasmodic dysphonia Surgical History H/O mastectomy History of back surgery Hx of appendectomy Hx of hernia repair Hx of hysterectomy Hx of resection of liver Hx of total knee replacement Family History Other Family history non-contributory Social History Preferred Language: Eritre[place] Communication Ability: Effective 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 Beliefs That Will Affect Care: None Current Living Situation: Assisted Current Living Situation Comment: [facility] Other Information That Helps Us Care for You: No Feels Safe at Home: Yes Safety Concerns: Feels Safe At This Time Smoking Status: Never smoker Second Hand Exposure: No ; Hx Alcohol Use: No Hx Substance Use: No Review of Systems Review of Systems: All systems reviewed & are unremarkable except as noted in HPI & below Physical Exam Physical Exam: General: no distress Eyes: normal inspection, PERLL, scabbing left lower eyelid Respiratory: chest non tender, course bases bilaterally, no respiratory distress, somewhat labored breathing Cardiac: regular rate and rhythm, no rub or gallop, systolic murmur, pitting edema bilateral lower extremities GI/: active bowel sounds, no abd pain or tenderness, soft, non distended Extremities: normal range of motion, normal strength, non tender Neuro/Psych: alert and oriented x 3, normal mood and affect Skin: bilateral lower extremities with venous stasis changes and erythema (patient reports this is her baseline), dry blood in both nares, dried blood at corners of mouth Results & Data Vital Signs (Past 12 Hours) Vital Signs Temp Pulse Resp BP Pulse Ox 07/30/19 16:24 36.6 C 63 22 128/47 L 97 07/30/19 16:01 66 21 133/53 L 97 07/30/19 16:00 68 26 H 97 07/30/19 15:30 76 15 98 07/30/19 15:19 61 16 114/48 L 99 07/30/19 15:11 36.4 C L 61 22 114/48 L 99 07/30/19 15:01 64 18 118/47 L 100 07/30/19 15:00 62 17 98 07/30/19 14:32 64 18 111/49 L 88 L 07/30/19 14:31 36.6 C 60 18 111/49 L 93 07/30/19 14:30 76 25 H 91 07/30/19 14:02 58 L 20 128/48 L 89 L 07/30/19 14:01 36.5 C 60 18 129/51 L 94 07/30/19 14:00 59 L 21 86 L 07/30/19 13:50 36.5 C 62 18 128/48 L 92 07/30/19 13:46 36.7 C 62 21 127/58 L 90 07/30/19 13:34 60 15 119/46 L 91 07/30/19 13:30 36.6 C 77 23 111/53 L 89 L 07/30/19 13:19 62 16 111/53 L 92 07/30/19 13:16 68 18 76/37 L 91 07/30/19 13:15 36.6 C 68 18 111/53 L 94 07/30/19 13:01 69 23 90 07/30/19 13:00 95 H 23 92 07/30/19 12:47 78 20 111/52 L 91 07/30/19 12:45 36.5 C 82 18 111/52 L 93 07/30/19 12:30 36.4 C L 67 19 119/63 92 07/30/19 12:16 63 20 118/55 L 96 07/30/19 12:14 36.6 C 72 20 105/56 L 96 07/30/19 12:10 85 17 105/56 L 95 07/30/19 12:00 64 18 93 07/30/19 11:30 72 22 95 07/30/19 11:00 77 18 07/30/19 10:44 95 07/30/19 10:30 83 16 90 07/30/19 10:00 65 19 95 07/30/19 09:55 37.1 C 90 18 124/52 L 96 07/30/19 09:53 119 H 23 91 07/30/19 09:52 88 22 124/52 L 89 L 07/30/19 09:32 86 L Code Status & VTE Plan VTE Prophylaxis Plan VTE Prophylaxis will be ordered: Yes Supervising Physician Co-Signing Physician Notes I supervised Alexandrea Mendez NP on this patient's care. I examined the patient today independently of her. I discussed the plan of care with her with the plan being as written in her note except for any following changes/exceptions: None. 88yo F w/ hx of recent admission for UTI and possible pneumonia. At that time, it was felt she may have had a PE, and was therefore switched from her NOAC to warfarin. Now she presents with INR>10, plts of 13. She noted bleeding from her mouth and eye. Some mild bruising on her arms, but this is pretty close to her usual state as she reports she bruises easily. She denies any focal neurologic deficits. - Received FFP & platelets in the ED; will closely watch for any signs of more significant bleeding with timed H&Hs - Unclear why platelets are so low. Fibrinogen normal/high & no signs of microthrombosis. Peripheral smear pending to look for schistocytes, though my concern for TTP or DIC is low. - Hematology consult - Sounds rhonchorous on exam; will get chest CT given her obesity, I feel CXR will be of minimal help. PG Care Time/CCT Total # of Minutes Spent Total Time Spent with Patient: Total time spent is greater than 50% in coordination of care (as documented) at patient's floor/unit and/or counseling patient: (1) Diastolic CHF Heart failure chronicity: acute on chronic Qualified Code(s): I50.33 - Acute on chronic diastolic (congestive) heart failure (2) Chronic low back pain Back pain laterality: unspecified Sciatica presence: unspecified whether sciatica present Qualified Code(s): M54.5 - Low back pain; G89.29 - Other chronic pain (3) Anemia Anemia type: unspecified type Qualified Code(s): D64.9 - Anemia, unspecified
--- NOTE | 2019-07-30 17:52 | CT Scan Report ---
CT head/brain wo con CT DOSE: 998.18 mGy.cm HISTORY: Hemorrhage bleed TECHNIQUE: Multiaxial CT images of the head were performed without the use of intravenous contrast. A dose lowering technique was utilized adhering to the principles of ALARA. Comparison: None. Findings: The paranasal sinuses and mastoid air cells are clear. The calvarium and skull base are int act. The ventricles and sulci are within normal limits. There is no mass, hematoma, midline shift, or acute infarct. Impression: No acute intracranial abnormality. No change from the prior exam. The above report was generated using voice recognition software. It may contain grammatical, syntax or spelling errors. Electronically signed by: Wm Browne M.D. 07/30/2019 5:51 PM
--- NOTE | 2019-07-30 17:57 | CT Scan Report ---
CT chest wo con CLINICAL HISTORY: Cough. Abnormal breath sounds. COMPARISON STUDY: Chest x-ray dated 07/14/2019, CT scan dated 07/07/2018 CT DOSE: 797.69 mGy.cm TECHNIQUE: CT of the thorax was performed from the thoracic inlet to the lung bases. Images are revi ewed in the axial, sagittal, and coronal planes. IV contrast was not administered for this examinatio n. A dose lowering technique was utilized adhering to the principles of ALARA. FINDINGS: Thyroid: Imaged portions of the thyroid gland are normal in appearance. Thoracic aorta: The thoracic aorta is normal in course and caliber, noting standard 3 vessel arch tao emma. Heart: The heart is mildly enlarged. There is no significant pericardial effusion. There are coronary artery calcifications. Lungs and pleural spaces: There are no pleural effusions. There are mild lower lobe bronchiectatic ch anges. There is progressive bilateral lower lobe atelectasis/consolidation. There is subpleural retic ulation most pronounced in the right. Diagnostic considerations include cardiogenic interstitial lexie a versus interstitial lung disease. Mediastinum: There are borderline enlarged mediastinal lymph nodes, unchanged from the prior study an d likely reactive Bonnie: There are calcified hilar lymph nodes consistent with a post inflammatory etiology Axilla: There is no evidence of pathologic axillary lymphadenopathy Upper abdomen: There are calcified hepatic granulomas. There are multiple calcified splenic granulom as. There are also chronic rim type calcifications within the spleen. There is a small hiatal hernia. Skeletal structures: Advanced arthritic changes are present within the shoulders. There are arthritic changes in the spine. There is a mild mid to upper thoracic vertebral body compression deformity whi ch appears chronic IMPRESSION: 1. Progressive bilateral lower lobe atelectasis/consolidation with associated mild bronchiectasis. 2. Mildly prominent mediastinal lymph nodes likely reactive 3. Mild subpleural reticulation. Interstitial lung disease versus cardiogenic interstitial edema Electronically signed by: Tyshawn Anguiano M.D. 07/30/2019 5:56 PM
[2019-07-30] MEDS ORDERED: OXYCODONE HCL IR 5 MG TAB (IMMEDIATE RELEASE) PO PRN (18:07)
[2019-07-30] MEDS ORDERED: bisacodyL 10 MG SUPP PR PRN (18:07)
[2019-07-30] MEDS ORDERED: AMIODARONE 200 MG TAB PO SCH (18:07)
[2019-07-30] MEDS ORDERED: SOD PHOSPHATE/SOD BIPHOSPHATE ENEMA 132 ML BTL PR PRN (18:07)
[2019-07-30 18:32] LABS: Hematocrit (blood only) 27.8 % (37-47); Hemoglobin 8.7 g/dL (12.0-16.0)
[2019-07-30] MEDS: ALBUTEROL 0.083% NEBU SOLN 3 ML VIAL INH SCH (19:48)
[2019-07-30] MEDS: BUDESONIDE 0.5 MG/2 ML VIAL (PULMICORT) NEB SCH (19:48)
[2019-07-30] MEDS: FLUTICASONE/SALMETEROL 100/50 (ADVAIR) 14 PUFF/1 INHALER INH SCH (21:05)
[2019-07-30] MEDS: carvediloL 3.125 MG TAB PO SCH (21:05)
[2019-07-30] MEDS: DULOXETINE HCL 30 MG CAP PO SCH (21:06)
[2019-07-30] MEDS: ROPINIROLE HCL 1 MG TABLET PO SCH (21:06)
[2019-07-30] MEDS: ACETAMINOPHEN 500 MG TAB PO SCH (21:07)
[2019-07-30] MEDS: POLYETHYLENE (MIRALAX) 17 GM PACK PO SCH (21:07)
[2019-07-30] MEDS: BENZONATATE 100 MG CAPSULE PO SCH (21:08)
[2019-07-30] MEDS: MONTELUKAST SODIUM 10 MG TABLET PO SCH (21:08)
[2019-07-30] MEDS: GABAPENTIN 600 MG TAB PO SCH (21:08)
[2019-07-30] MEDS: DICLOFENAC SOD 1% GEL 100 GM TUBE EXT SCH (21:09)
[2019-07-30 23:13] LABS: Hematocrit (blood only) 28.5 % (37-47)
[2019-07-30] MEDS: RESTASIS - ORDER AWAITING ACTION SCH (23:57)
[2019-07-30] MEDS: CHECK FENTANYL PATCH PLACEMENT SCH ×2 (23:57)
[2019-07-31] MEDS: ALBUTEROL 0.083% NEBU SOLN 3 ML VIAL INH SCH ×4 (01:16→19:17)
[2019-07-31] MEDS: OXYCODONE HCL IR 5 MG TAB (IMMEDIATE RELEASE) PO PRN (02:18)
[2019-07-31] MEDS: LEVOTHYROXINE SODIUM 75 MCG TABLET PO SCH (05:09)
[2019-07-31 06:15] LABS: Platelet Count 14 K/uL (130-400)
[2019-07-31 06:26] LABS: Basophils # (auto) 0.01 K/uL (0-0.2); Basophils % (auto) 0.1 %; Eosinophils # (auto) 0.08 K/uL (0-0.5); Eosinophils % (auto) 0.9 %; Hematocrit (blood only) 26.6 % (37-47); Hemoglobin 8.3 g/dL (12.0-16.0); Immature Granulocytes # (auto) 0.07 K/uL (0.00-0.02); Immature Granulocytes % (auto) 0.8 %; Lymphocytes # (auto) 2.25 K/uL (1.2-3.4); Lymphocytes % (auto) 26.2 %; Mean Corpuscular Hemoglobin 33.2 pg (25-34); Mean Corpuscular Hgb Conc 31.2 g/dL (32-36); Mean Corpuscular Volume 106.4 fL (80-100); Monocytes # (auto) 1.43 K/uL (0.11-0.59); Monocytes % (auto) 16.7 %; Neutrophils # (auto) 4.74 K/uL (1.4-6.5); Neutrophils % (auto) 55.3 %; Platelet Estimate SIGNIFIC DECREASED (Normal); RBC Morphology Unremarkable; RDW Coefficient of Variation 17.6 % (11.5-14.5); RDW Standard Deviation 68.2 fL (36.4-46.3); White Blood Count 8.58 K/uL (4.8-10.8)
[2019-07-31 06:31] LABS: BUN Creatinine Ratio 24.9 (10-20); Calcium 8.9 mg/dl (8.5-10.1); Creatinine Clr Calc Pharmacy 50.2 ml/min; Est GFR (African American) 55.3; Est GFR (Non-African American) 47.7; Potassium 4.1 mmol/L (3.5-5.1)
[2019-07-31] MEDS: BUDESONIDE 0.5 MG/2 ML VIAL (PULMICORT) NEB SCH ×2 (07:01→19:17)
[2019-07-31] MEDS: CHECK FENTANYL PATCH PLACEMENT SCH ×6 (08:00→23:17)
[2019-07-31 08:08] LABS: INR 1.3 (0.9-1.1); Prothrombin Time 13.3 Seconds (9.0-12.0)
[2019-07-31] MEDS: fentaNYL 25 MCG/HR TDSY TD SCH (08:23)
[2019-07-31] MEDS: OXYCODONE HCL IR 5 MG TAB (IMMEDIATE RELEASE) PO SCH (08:23)
[2019-07-31 08:24] LABS: Fibrinogen 395 mg/dl (184-400)
[2019-07-31] MEDS: fentaNYL 12 MCG/HR TDSY TD SCH (08:26)
[2019-07-31] MEDS: MULTIVITAMIN TAB PO SCH (08:27)
[2019-07-31] MEDS: carvediloL 3.125 MG TAB PO SCH ×2 (08:27→20:14)
[2019-07-31] MEDS: PANTOprazole 40 MG TAB PO SCH (08:27)
[2019-07-31] MEDS: ROPINIROLE HCL 1 MG TABLET PO SCH ×4 (08:27→20:14)
[2019-07-31] MEDS: GABAPENTIN 100 MG CAP PO SCH ×2 (08:28→18:50)
[2019-07-31] MEDS: FLUTICASONE/SALMETEROL 100/50 (ADVAIR) 14 PUFF/1 INHALER INH SCH ×2 (08:28→20:06)
[2019-07-31] MEDS: BENZONATATE 100 MG CAPSULE PO SCH ×3 (08:28→20:13)
[2019-07-31] MEDS: allopurinoL 100 MG TAB PO SCH (08:28)
[2019-07-31] MEDS: DICLOFENAC SOD 1% GEL 100 GM TUBE EXT SCH ×2 (08:28→20:13)
[2019-07-31] MEDS: FUROSEMIDE 40 MG TAB PO SCH (08:28)
[2019-07-31 08:30] LABS: D Dimer 860 ug/L FEU (0-500)
[2019-07-31] MEDS: TIOTROPIUM BROMIDE 5 PUFF/90 MCG INH INH SCH (08:30)
[2019-07-31 09:17] LABS: Partial Thromboplastin Ratio 1.1; Partial Thromboplastin Time 29.8 Seconds (21.0-31.0)
[2019-07-31] MEDS: RESTASIS - ORDER AWAITING ACTION SCH ×3 (12:05→23:16)
--- NOTE | 2019-07-31 12:24 | Hospitalist Progress Note ---
Date of Service July 31, 2019 Assessment & Plan (1) Thrombocytopenia: (2) Epistaxis: (3) Anemia: (4) Elevated INR: Thrombocytopenia, anemia, epistaxis, elevated INR Patient had started warfarin INR was >10.4 on admission, platelets 13,000, fibrinogen 414, d-dimer 710 Given 10 mg IV vitamin K, FFP, and platelets in the ED - INR reversed today 1.3, platelets continue to be low at 14,000 Hgb stable, no further s/s of bleeding Peripheral smear to look for schistocytes CT head without acute Amiodarone held as possible etiology of thrombocytopenia, could also consider Coreg as this was also a new medication although this would be a very rare adverse effect Consulted hematology (5) Pneumonia: CT scan with bilateral consolidation vs atelectasis. Patient persistent labored breathing and course bases - will start ceftriaxone No fever or leukocytosis (6) Venous stasis: vs Cellulitis Patient has bilateral edema and erythema of lower extremities which she reports is chronic. Difficult to tell if it is infection vs chronic changes given that it is warm, red, and swollen but symmetrical. Ceftriaxone started for pneumonia should cover. No fever or leukocytosis Additionally, thrombocytopenia could be secondary to infection (7) PAF (paroxysmal atrial fibrillation): Continue rate control with Coreg Hold warfarin (8) History of pulmonary embolism: Last admission - treated for possible PE with heparin drip and converted to Coumadin. Thought that maybe patient was undertreated with her NOAC due to h er large BMI. At that time, given the rapid nature of her respiratory compromise there was concern for possible PE however CTA was deferred due to slightly worsened renal function from baseline as well as a VQ scan being nondiagnostic given her chronic conditions/plus inability to perform test adequately due to respiratory compromise - Hold warfarin (9) Diastolic CHF: chronic awaiting CT chest but does not appear to be currently in exacerbation continue Coreg, furosemide Is&Os, daily weights (10) COPD (chronic obstructive pulmonary disease): continue home inhalers, home O2 4L, montelukast (11) Chronic low back pain: continue home pain regimen - 5 mg oxycodone qam prn, 10 mg po qhs prn, 5 mg po daily and fentanyl patch (12) Neuropathy: Continue duloxetine, gabapentin (13) Hypothyroid: continue levothyroxine (14) DVT prophylaxis: SCDs. Subjective Ms. Mendez has not had any further bleeding. She continues to cough and is somewhat labored in her breathing. Chronic back pain. She has been scratching at her right leg which is causing some abrasion Review of Systems Review of Systems: All systems reviewed & are unremarkable except as noted in HPI & below Physical Exam Physical Exam: General: no distress Eyes: normal inspection, PERLL, scabbing left lower eyelid Respiratory: chest non tender, crackles bases bilaterally, no respiratory distress, somewhat labored breathing Cardiac: regular rate and rhythm, no rub or gallop, systolic murmur, pitting edema bilateral lower extremities GI/: active bowel sounds, no abd pain or tenderness, soft, non distended Extremities: normal range of motion, normal strength, non tender Neuro/Psych: alert and oriented x 3, normal mood and affect Skin: bilateral lower extremities with venous stasis changes and erythema right leg with abrasion due to scratching Results & Data Vital Signs (Past 12 Hours) Vital Signs Temp Pulse Pulse Resp BP Pulse Ox 07/31/19 11:42 36.6 C 66 21 119/48 L 94 07/31/19 08:11 36.6 C 67 20 131/69 95 07/31/19 07:01 64 16 94 07/31/19 04:23 36.8 C 70 22 130/50 L 95 07/31/19 01:40 86 07/31/19 01:18 72 20 95 PG Care Time/CCT Total # of Minutes Spent Total Time Spent with Patient: Total time spent is greater than 50% in coordination of care (as documented) at patient's floor/unit and/or counseling patient: (1) Anemia Anemia type: unspecified type Qualified Code(s): D64.9 - Anemia, unspecified (2) Diastolic CHF Heart failure chronicity: acute on chronic Qualified Code(s): I50.33 - Acute on chronic diastolic (congestive) heart failure (3) Chronic low back pain Back pain laterality: unspecified Sciatica presence: unspecified whether sciatica present Qualified Code(s): M54.5 - Low back pain; G89.29 - Other chronic pain (4) Pneumonia Laterality: unspecified laterality Lung location: unspecified part of lung Pneumonia type: due to unspecified organism Qualified Code(s): J18.9 - Pneumonia, unspecified organism
[2019-07-31] MEDS: cefTRIAXone SODIUM 2,000 MG in DEXTROSE 5% 50 ML IV SCH (14:08)
--- NOTE | 2019-07-31 17:18 | Oncology Consultation ---
Date of Consultation July 31, 2019 Assessment & Plan (1) Thrombocytopenia: Her thrombocytopenia is sudden in onset and severe, dropping from normal to <30k in about a week. 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 However, she started amiodarone during her last hospital stay and the thrombocytopenia associated with that drug is also immune. The onset is usually about 1-2 weeks after starting it for the first time, which fits her case. There is no test to distinguish between these entities. However, rather than give her immune-suppressing medication, particularly given her recent and potentially current issues with infections, I would rather withhold the amio first. Patients with drug-induced immune thrombocytopenia typically start to see an improvement in their platelets within 1-2 days of stopping the offending agent. 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 If her platelets do respond to withholding amio, I would consider consulting cardiology to discuss alternatives. Present on Admission?: Yes (2) Anemia: She has a chronic anemia that dates back to 2016. Her baseline hemoglobin is mostly in the 10-11 range. Her hemoglobin has been lower during her recent hospital stays. The acute drop is likely multifactorial, with components of hospital phlebotomy, marrow suppression from her various infections, and some of her bleeding. I would consider transfusion for a hemoglobin <8. Present on Admission?: Yes History of Present Illness Reason for Consultation: Thrombocytopenia Attending Physician: Marlon Roman MD History of Present Illness Ms. Mendez is an 88 year old woman with a history of CHF, COPD, CKD, HTN, paroxysmal AFib, and chronic anemia. He follows with my partner, Dr. Cheema, for this latter issue, which he suspects is related to myelodysplasia. She has declined a bone marrow biopsy in the past to confirm this diagnosis. She was hospitalized earlier this month for acute respiratory failure. It was ultimately multifactorial, with components of COPD, CHF, and pneumonia. During that stay, she also had an episode of a narrow complex tachycardia. It eventually responded to amiodarone and she was discharged on amio 200 BID. She was treated for the pneumonia and an ESBL E coli UTI and discharged on ertapenem. She returned to the ER yesterday complaining of epistaxis and oral mucosal bleeding. The volume was small, but it was concerning so she came to attention. In the ER, her platelets were 25K, from a previous of 160 on 07/21. She was given a platelet transfusion but did not respond. She denies any fevers or chills. She has some thickening and induration on her legs concerning for cellulitis. She denies any enlarging lymph nodes or night sweats. Her breathing has been improved from her last visit. She is still coughing and has occasional streaks of red in the sputum. Allergies Allergy/AdvReac Type Severity Reaction Status Date / Time enoxaparin Allergy Intermediate RASH, Verified 07/30/19 11:05 PRURITUS Home Medications Home Medications Medication Instructions Recorded Confirmed Type Prilosec OTC 20 mg PO QAM 09/07/18 07/30/19 History Spiriva with HandiHaler 1 cap INHALATION QAM 09/07/18 07/30/19 History allopurinol 100 mg PO QAM 09/07/18 07/30/19 History duloxetine 30 mg PO QPM 09/07/18 07/30/19 History gabapentin 600 mg PO HS 09/07/18 07/30/19 History montelukast [Singulair] 10 mg PO PM 09/07/18 07/30/19 History albuterol sulfate 2.5 mg INH Q6H #90 ml 09/11/18 07/30/19 Rx Restasis MultiDose 1 drp OPHTHALMIC (EYE) BID 11/06/18 07/30/19 History acetaminophen 325 - 650 mg PO Q6H PRN MDD 3G 11/06/18 07/30/19 History albuterol sulfate [Ventolin HFA] 2 puff INHALATION Q4H PRN 11/06/18 07/30/19 History azelastine 2 spray INTRANASAL QAM 11/06/18 07/30/19 History fluticasone propionate [Flonase 2 spray INTRANASAL DAILY 11/06/18 07/30/19 History Allergy Relief] multivitamin 1 tab PO QAM 11/06/18 07/30/19 History acetaminophen [Tylenol Extra 1,000 mg PO HS 02/02/19 07/30/19 History Strength] diclofenac sodium [Voltaren] 2 g TOPICAL BID 02/02/19 07/30/19 History sodium chloride [[place] Nasal] 1 spray INTRANASAL UD PRN 02/02/19 07/30/19 History fentanyl 1 patch TRANSDERMAL Q72H #1 ea 02/08/19 07/30/19 Rx benzonatate [Tessalon Perles] 100 mg PO TID 07/14/19 07/30/19 History budesonide [Pulmicort] 0.5 mg NEB Q12H 07/14/19 07/30/19 History gabapentin 200 mg PO BID 07/14/19 07/30/19 History oxycodone 5 mg PO QAM PRN 07/14/19 07/30/19 History oxycodone 10 mg PO HS PRN 07/14/19 07/30/19 History polyethylene glycol 3350 [Miralax] 17 g PO PM 07/14/19 07/30/19 History amiodarone 200 mg PO BIDM 30 Days #60 tab 07/21/19 07/30/19 Rx carvedilol 3.125 mg PO BID 30 Days #60 tab 07/21/19 07/30/19 Rx furosemide 40 mg PO QAM 30 Days #30 tab 07/21/19 07/30/19 Rx ropinirole 1 mg PO QID 30 Days #120 tab 07/21/19 07/30/19 Rx warfarin [Coumadin] 5 mg PO DAILY #30 tab 07/21/19 07/30/19 Rx bisacodyl 10 mg [place] DAILY PRN 07/30/19 07/30/19 History fluticasone propion-salmeterol 1 puff INHALATION Q12H 07/30/19 07/30/19 History [Advair Diskus] levothyroxine 75 mcg PO DAILY 07/30/19 07/30/19 History oxycodone 5 mg PO DAILY 07/30/19 07/30/19 History sodium phosphates [Fleet Enema] 118 ml [place] DAILY PRN 07/30/19 07/30/19 History Patient History Medical History Chronic back pain RLS (restless legs syndrome) Chronic diastolic CHF (congestive heart failure) (Chronic) COPD exacerbation (Acute) Hypoxia (Acute) Hypertension (Chronic) Asthma (Chronic) CKD (chronic kidney disease), stage III (Chronic) DCIS (ductal carcinoma in situ) (~2012) Deep vein blood clot of right lower extremity History of pulmonary embolism Lung cancer (~2010) Spasmodic dysphonia Surgical History H/O mastectomy History of back surgery Hx of appendectomy Hx of hernia repair Hx of hysterectomy Hx of resection of liver Hx of total knee replacement Family History Other Family history non-contributory Social History Preferred Language: Romanian Communication Ability: Effective 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 Beliefs That Will Affect Care: None Current Living Situation: [facility] Current Living Situation Comment: [facility] Other Information That Helps Us Care for You: No Feels Safe at Home: Yes Safety Concerns: Feels Safe At This Time Smoking Status: Never smoker Second Hand Exposure: No ; Hx Alcohol Use: No Hx Substance Use: No Review of Systems Constitutional: + fatigue; no fever and no sweats Eyes: no worsening vision Ear, Nose, Mouth, Throat: + epistaxis and + bleeding gums Respiratory: + cough and + hemoptysis (streaky); no dyspnea Cardiovascular: no chest pain and no palpitations Gastrointestinal: no abdominal pain, no nausea and no blood in stools Genitourinary: no dysuria and no hematuria Integumentary: no rash and no bleeding lesions Neurologic: no dizziness and no headache(s) Hematologic / Lymphatic: no lymphadenopathy and no night sweats Physical Exam Constitutional: + ill appearing (chronically) and + obese; no acute distress Eyes: + anicteric sclerae and EOM intact bilaterally ENMT: external ear and nose normal, oropharynx normal Respiratory: normal respiratory effort Auscultation: + crackles (faint, at the bases) Cardiovascular: Rate/Rhythm: regular rate and regular rhythm Gastrointestinal (Abdomen): Inspection/Auscultation: normal bowel sounds; abdomen not distended Percussion/Palpation: abdomen soft; abdomen nontender Musculoskeletal: Her legs have chronic venous stasis changes with some induration and warmth concerning for possible cellulitis. Skin: Scattered ecchymoses, no petechiae or purpura Psychiatric: A+Ox3, euthymic affect Lymphatic: no cervical or axillary lymphadenopathy Results & Data Vital Signs (Past 12 Hours) Vital Signs Temp Pulse Resp BP Pulse Ox 07/31/19 15:11 36.7 C 63 24 125/56 L 94 07/31/19 13:51 72 18 94 07/31/19 11:42 36.6 C 66 21 119/48 L 94 07/31/19 08:11 36.6 C 67 20 131/69 95 07/31/19 07:01 64 16 94 Laboratory Results Laboratory Tests 07/20/19 07/21/19 07/29/19 07:09 05:27 06:00 WBC Hgb Plt Count 183 169 25 L* 07/30/19 07/31/19 10:43 05:43 WBC 8.58 Hgb 8.3 L Plt Count 13 L* 14 L* (1) Anemia Anemia type: unspecified type Qualified Code(s): D64.9 - Anemia, unspecified
[2019-07-31] MEDS: POLYETHYLENE (MIRALAX) 17 GM PACK PO SCH (20:12)
[2019-07-31] MEDS: ACETAMINOPHEN 500 MG TAB PO SCH (20:13)
[2019-07-31] MEDS: GABAPENTIN 600 MG TAB PO SCH (20:14)
[2019-07-31] MEDS: DULOXETINE HCL 30 MG CAP PO SCH (20:14)
[2019-07-31] MEDS: MONTELUKAST SODIUM 10 MG TABLET PO SCH (20:14)
[2019-08-01] MEDS: ALBUTEROL 0.083% NEBU SOLN 3 ML VIAL INH SCH ×4 (01:12→19:04)
[2019-08-01] MEDS: LEVOTHYROXINE SODIUM 75 MCG TABLET PO SCH (06:35)
[2019-08-01] MEDS: BUDESONIDE 0.5 MG/2 ML VIAL (PULMICORT) NEB SCH ×2 (07:06→19:04)
[2019-08-01 08:19] LABS: BUN Creatinine Ratio 26.4 (10-20); Calcium 9.4 mg/dl (8.5-10.1); Creatinine Clr Calc Pharmacy 50.2 ml/min; Est GFR (African American) 54.7; Est GFR (Non-African American) 47.2; Potassium 4.1 mmol/L (3.5-5.1)
[2019-08-01 08:40] LABS: Hemoglobin 8.7 g/dL (12.0-16.0); Mean Corpuscular Hemoglobin 34.4 pg (25-34); Mean Corpuscular Hgb Conc 32.2 g/dL (32-36); Mean Corpuscular Volume 106.7 fL (80-100); Platelet Count 9 K/uL (130-400); RDW Coefficient of Variation 17.8 % (11.5-14.5); RDW Standard Deviation 69.7 fL (36.4-46.3); Red Blood Count 2.53 M/uL (4.2-5.4); White Blood Count 6.31 K/uL (4.8-10.8)
[2019-08-01 08:42] LABS: Basophils # (auto) 0.01 K/uL (0-0.2); Basophils % (auto) 0.2 %; Eosinophils # (auto) 0.09 K/uL (0-0.5); Eosinophils % (auto) 1.4 %; Immature Granulocytes # (auto) 0.05 K/uL (0.00-0.02); Immature Granulocytes % (auto) 0.8 %; Lymphocytes # (auto) 2.24 K/uL (1.2-3.4); Lymphocytes % (auto) 35.5 %; Monocytes # (auto) 1.16 K/uL (0.11-0.59); Monocytes % (auto) 18.4 %; Neutrophils # (auto) 2.76 K/uL (1.4-6.5); Neutrophils % (auto) 43.7 %; Platelet Estimate SIGNIFIC DECREASED (Normal)
[2019-08-01] MEDS: MULTIVITAMIN TAB PO SCH (08:51)
[2019-08-01] MEDS: OXYCODONE HCL IR 5 MG TAB (IMMEDIATE RELEASE) PO SCH (08:51)
[2019-08-01] MEDS: GABAPENTIN 100 MG CAP PO SCH ×2 (08:51→17:20)
[2019-08-01] MEDS: PANTOprazole 40 MG TAB PO SCH (08:51)
[2019-08-01] MEDS: carvediloL 3.125 MG TAB PO SCH ×2 (08:51→20:50)
[2019-08-01] MEDS: FLUTICASONE/SALMETEROL 100/50 (ADVAIR) 14 PUFF/1 INHALER INH SCH ×2 (08:52→20:52)
[2019-08-01] MEDS: BENZONATATE 100 MG CAPSULE PO SCH ×3 (08:53→20:50)
[2019-08-01] MEDS: ROPINIROLE HCL 1 MG TABLET PO SCH ×4 (08:53→20:50)
[2019-08-01] MEDS: TIOTROPIUM BROMIDE 5 PUFF/90 MCG INH INH SCH (08:53)
[2019-08-01] MEDS: allopurinoL 100 MG TAB PO SCH (08:53)
[2019-08-01] MEDS: FUROSEMIDE 40 MG TAB PO SCH (08:53)
[2019-08-01] MEDS: CHECK FENTANYL PATCH PLACEMENT SCH ×6 (08:54→23:50)
[2019-08-01] MEDS: RESTASIS - ORDER AWAITING ACTION SCH ×3 (08:54→23:50)
[2019-08-01] MEDS: DICLOFENAC SOD 1% GEL 100 GM TUBE EXT SCH ×2 (08:54→20:53)
[2019-08-01] MEDS ORDERED: SODIUM CHLORIDE 0.9% 250 ML IV PRN (09:15)
[2019-08-01] MEDS: cefTRIAXone SODIUM 2,000 MG in DEXTROSE 5% 50 ML IV SCH (12:49)
--- NOTE | 2019-08-01 14:58 | Hospitalist Progress Note ---
Date of Service August 01, 2019 Assessment & Plan (1) Thrombocytopenia: (2) Epistaxis: (3) Anemia: (4) Elevated INR: Thrombocytopenia, anemia, epistaxis, elevated INR Patient had started warfarin INR was >10.4 on admission, platelets 13,000, fibrinogen 414, d-dimer 710 Given 10 mg IV vitamin K, FFP, and platelets in the ED - INR reversed to1.3, platelets have dropped further to 9,000 today Hgb stable, no further s/s of bleeding Peripheral smear - severe thrombocytopenia, macrocytic anemia nd apparent dysplasia of PMN leukocytes Amiodarone held as possible etiology of thrombocytopenia Consulted hematology - will consider IVIG tomorrow if platelets continue to trend down. For now 2 units platelets (5) Pneumonia: CT scan with bilateral consolidation vs atelectasis. Continue ceftriaxone No fever or leukocytosis (6) Venous stasis: vs Cellulitis Patient has bilateral edema and erythema of lower extremities which she reports is chronic. Difficult to tell if it is infection vs chronic changes given that it is warm, red, and swollen but symmetrical. Ceftriaxone started for pneumonia should cover. No fever or leukocytosis Additionally, thrombocytopenia could be secondary to infection (7) PAF (paroxysmal atrial fibrillation): Continue rate control with Coreg Hold warfarin (8) History of pulmonary embolism: Last admission - treated for possible PE with heparin drip and converted to Coumadin. Thought that maybe patient was undertreated with her NOAC due to her large BMI. At that time, given the rapid nature of her respiratory compromise there was concern for possible PE however CTA was deferred due to slightly worsened renal function from baseline as well as a VQ scan being nondiagnostic given her chronic conditions/plus inability to perform test adequately due to respiratory compromise - Hold warfarin (9) Diastolic CHF: chronic awaiting CT chest but does not appear to be currently in exacerbation continue Coreg, furosemide Is&Os, daily weights (10) COPD (chronic obstructive pulmonary disease): continue home inhalers, home O2 4L, montelukast (11) Chronic low back pain: continue home pain regimen - 5 mg oxycodone qam prn, 10 mg po qhs prn, 5 mg po daily and fentanyl patch (12) Neuropathy: Continue duloxetine, gabapentin (13) Hypothyroid: continue levothyroxine (14) DVT prophylaxis: SCDs. Subjective Ms. Mendez feels about the same. Some cough, no bleeding. Afebrile. Stable. Review of Systems Review of Systems: All systems reviewed & are unremarkable except as noted in HPI & below Physical Exam Physical Exam: General: no distress Eyes: normal inspection, PERLL Respiratory: chest non tender, clear to auscultation, normal breath sounds, no respiratory distress, no accessory muscle use Cardiac: regular rate and rhythm, no rub or gallop, no murmur, no edema, no jvd GI/: active bowel sounds, no abd pain or tenderness, soft, non distended Extremities: normal range of motion, normal strength, non tender Neuro/Psych: alert and oriented x 3, normal mood and affect Skin: normal color, dry, continued lower extremity erythema and edema bilaterally Results & Data Vital Signs (Past 12 Hours) Vital Signs Temp Pulse Resp BP Pulse Ox 08/01/19 13:25 64 20 94 08/01/19 10:58 36.2 C L 60 20 121/58 L 98 08/01/19 08:17 36.4 C L 60 18 117/47 L 99 08/01/19 07:06 70 16 98 08/01/19 03:19 36.6 C 65 17 122/56 L 97 PG Care Time/CCT Total # of Minutes Spent Total Time Spent with Patient: Total time spent is greater than 50% in coordination of care (as documented) at patient's floor/unit and/or counseling patient: (1) Diastolic CHF Heart failure chronicity: acute on chronic Qualified Code(s): I50.33 - Acute on chronic diastolic (congestive) heart failure (2) Chronic low back pain Back pain laterality: unspecified Sciatica presence: unspecified whether sciatica present Qualified Code(s): M54.5 - Low back pain; G89.29 - Other chronic pain (3) Anemia Anemia type: unspecified type Qualified Code(s): D64.9 - Anemia, unspecified (4) Pneumonia Laterality: unspecified laterality Lung location: unspecified part of lung Pneumonia type: due to unspecified organism Qualified Code(s): J18.9 - Pneumonia, unspecified organism
--- NOTE | 2019-08-01 16:21 | Hematology/Oncology Prog Note ---
Date of Service August 01, 2019 Assessment & Plan (1) Thrombocytopenia: Her thrombocytopenia is sudden in onset and severe, dropping from normal to <30k in about a week. 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 However, she started amiodarone during her last hospital stay and the thrombocytopenia associated with that drug is also immune. The onset is usually about 1-2 weeks after starting it for the first time, which fits her case. There is no test to distinguish between these entities. However, rather than give her immune-suppressing medication, particularly given her recent and potentially current issues with infections, I would rather withhold the amio first. Patients with drug-induced immune thrombocytopenia typically start to see an improvement in their platelets within 1-2 days of stopping the offending agent. Her platelet count is slightly lower than yesterday, though this may not be clinically meaningful. She is not actively bleeding and has no signs or symptoms to suggest internal bleeding. She's now been off of the amio for around 48 hours. I did suggest we give her another platelet transfusion. If we are not seeing her counts improve by tomorrow, we can treat her empirically with IVIG. That is primary because I cannot exclude the possibility of ITP, though I still believe this is more likely to be related to the amiodarone. If she starts to have clinically significant bleeding, we should treat her with IVIG and give her more platelets. If her platelets do respond to withholding amio, I would consider consulting cardiology to discuss alternatives. Present on Admission?: Yes (2) Anemia: She has a chronic anemia that dates back to 2016. Her baseline hemoglobin is mostly in the 10-11 range. Her hemoglobin has been lower during her recent hospital stays. The acute drop is likely multifactorial, with components of hospital phlebotomy, marrow suppression from her various infections, and some of her bleeding. I would consider transfusion for a hemoglobin <8. Subjective Ms. Mendez was seated comfortably in a chair when I saw her. She has not had any further gross bleeding, though she still occasionally coughs up brownish-tinged sputum. She feels a bit better than yesterday but overall is mostly unchanged. Review of Systems Constitutional: + fatigue; no fever Eyes: no worsening vision Ear, Nose, Mouth, Throat: no epistaxis and no bleeding gums Respiratory: + cough and + change in sputum (brown-tinged sputum); no dyspnea Cardiovascular: no chest pain Gastrointestinal: no abdominal pain, no nausea and no diarrhea/loose stools Genitourinary: no dysuria and no hematuria Integumentary: extensive chronic senile ecchymoses Neurologic: no localized weakness and no headache(s) Hematologic / Lymphatic: no easy bleeding Physical Exam Constitutional: + ill appearing (chronically) and + obese; no acute distress Eyes: + anicteric sclerae and EOM intact bilaterally ENMT: external ear and nose normal, oropharynx normal Respiratory: normal respiratory effort Auscultation: + crackles (faint, at the bases) Cardiovascular: Rate/Rhythm: regular rate and regular rhythm Gastrointestinal (Abdomen): Inspection/Auscultation: normal bowel sounds; abdomen not distended Percussion/Palpation: abdomen soft; abdomen nontender Psychiatric: A+Ox3, euthymic affect Lymphatic: no cervical or axillary lymphadenopathy Results & Data Vital Signs (Past 12 Hours) Vital Signs Temp Pulse Pulse Resp BP BP Pulse Ox 08/01/19 15:34 36.4 C L 57 L 18 106/59 L 98 08/01/19 15:17 36.4 C L 60 18 133/52 L 94 08/01/19 13:25 64 20 94 08/01/19 10:58 36.2 C L 60 20 121/58 L 98 08/01/19 08:17 36.4 C L 60 18 117/47 L 99 08/01/19 07:06 70 16 98 Laboratory Results Laboratory Tests 08/01/19 07:30 WBC 6.31 Hgb 8.7 L Plt Count 9 L* (1) Anemia Anemia type: unspecified type Qualified Code(s): D64.9 - Anemia, unspecified
[2019-08-01] MEDS: MONTELUKAST SODIUM 10 MG TABLET PO SCH (20:50)
[2019-08-01] MEDS: GABAPENTIN 600 MG TAB PO SCH (20:51)
[2019-08-01] MEDS: ACETAMINOPHEN 500 MG TAB PO SCH (20:51)
[2019-08-01] MEDS: DULOXETINE HCL 30 MG CAP PO SCH (20:51)
[2019-08-01] MEDS: POLYETHYLENE (MIRALAX) 17 GM PACK PO SCH (20:52)
[2019-08-02] MEDS: ALBUTEROL 0.083% NEBU SOLN 3 ML VIAL INH SCH ×4 (02:09→19:30)
[2019-08-02] MEDS: LEVOTHYROXINE SODIUM 75 MCG TABLET PO SCH (05:54)
[2019-08-02 06:41] LABS: INR 1.9 (0.9-1.1); Prothrombin Time 18.8 Seconds (9.0-12.0)
[2019-08-02 06:53] LABS: Mean Corpuscular Hgb Conc 31.6 g/dL (32-36)
[2019-08-02 07:00] LABS: Platelet Count 31 K/uL (130-400)
[2019-08-02 07:01] LABS: Anisocytosis Present; BUN Creatinine Ratio 28.3 (10-20); Basophils # (auto) 0.01 K/uL (0-0.2); Basophils % (auto) 0.2 %; Calcium 9.3 mg/dl (8.5-10.1); Creatinine Clr Calc Pharmacy 50.3 ml/min; Eosinophils # (auto) 0.12 K/uL (0-0.5); Eosinophils % (auto) 1.8 %; Est GFR (African American) 54.7; Est GFR (Non-African American) 47.2; Giant Platelets 2+; Hematocrit (blood only) 26.6 % (37-47); Hemoglobin 8.4 g/dL (12.0-16.0); Immature Granulocytes # (auto) 0.05 K/uL (0.00-0.02); Immature Granulocytes % (auto) 0.8 %; Lymphocytes # (auto) 1.98 K/uL (1.2-3.4); Mean Corpuscular Hemoglobin 33.7 pg (25-34); Mean Corpuscular Volume 106.8 fL (80-100); Monocytes # (auto) 1.24 K/uL (0.11-0.59); Monocytes % (auto) 18.8 %; Neutrophils # (auto) 3.19 K/uL (1.4-6.5); Neutrophils % (auto) 48.4 %; Platelet Estimate SIGNIFIC DECREASED (Normal); Potassium 4.2 mmol/L (3.5-5.1); RDW Coefficient of Variation 17.7 % (11.5-14.5); RDW Standard Deviation 67.9 fL (36.4-46.3); Red Blood Count 2.49 M/uL (4.2-5.4); White Blood Count 6.59 K/uL (4.8-10.8)
[2019-08-02] MEDS: BUDESONIDE 0.5 MG/2 ML VIAL (PULMICORT) NEB SCH ×2 (07:09→19:30)
[2019-08-02] MEDS: fentaNYL 25 MCG/HR TDSY TD SCH (07:43)
[2019-08-02] MEDS: CHECK FENTANYL PATCH PLACEMENT SCH ×4 (07:43→15:49)
[2019-08-02] MEDS: RESTASIS - ORDER AWAITING ACTION SCH ×2 (07:45→15:49)
[2019-08-02] MEDS: FUROSEMIDE 40 MG TAB PO SCH (07:46)
[2019-08-02] MEDS: FLUTICASONE/SALMETEROL 100/50 (ADVAIR) 14 PUFF/1 INHALER INH SCH ×2 (07:46→21:32)
[2019-08-02] MEDS: PANTOprazole 40 MG TAB PO SCH (07:47)
[2019-08-02] MEDS: GABAPENTIN 100 MG CAP PO SCH ×2 (07:47→15:48)
[2019-08-02] MEDS: carvediloL 3.125 MG TAB PO SCH ×2 (07:47→21:33)
[2019-08-02] MEDS: MULTIVITAMIN TAB PO SCH (07:47)
[2019-08-02] MEDS: ROPINIROLE HCL 1 MG TABLET PO SCH ×4 (07:48→21:34)
[2019-08-02] MEDS: BENZONATATE 100 MG CAPSULE PO SCH ×3 (07:48→21:49)
[2019-08-02] MEDS: DICLOFENAC SOD 1% GEL 100 GM TUBE EXT SCH ×2 (07:49→21:35)
[2019-08-02] MEDS: TIOTROPIUM BROMIDE 5 PUFF/90 MCG INH INH SCH (07:50)
[2019-08-02] MEDS: OXYCODONE HCL IR 5 MG TAB (IMMEDIATE RELEASE) PO SCH (08:11)
[2019-08-02] MEDS: cefTRIAXone SODIUM 2,000 MG in DEXTROSE 5% 50 ML IV SCH (11:43)
[2019-08-02] MEDS: allopurinoL 100 MG TAB PO SCH (11:49)
--- NOTE | 2019-08-02 14:05 | Hospitalist Progress Note ---
Date of Service August 02, 2019 Assessment & Plan (1) Thrombocytopenia: (2) Epistaxis: (3) Anemia: (4) Elevated INR: Thrombocytopenia, anemia, epistaxis, elevated INR Patient had started warfarin INR was >10.4 on admission, platelets 13,000, fibrinogen 414, d-dimer 710 Given 10 mg IV vitamin K, FFP, and platelets in the ED INR reversed to 1.3 initially but juve again today to 1.9, platelets are recovering to 30,000 following 2 units 08/01 Hgb stable, no further s/s of bleeding Peripheral smear - severe thrombocytopenia, macrocytic anemia and apparent dysplasia of PMN leukocytes Amiodarone held as possible etiology of thrombocytopenia Consulted hematology (5) Pneumonia: CT scan with bilateral consolidation vs atelectasis. Continue ceftriaxone No fever or leukocytosis (6) Venous stasis: vs Cellulitis Patient has bilateral edema and erythema of lower extremities which she reports is chronic. Difficult to tell if it is infection vs chronic changes given that it is warm, red, and swollen but symmetrical. Ceftriaxone started for pneumonia should cover. No fever or leukocytosis Additionally, thrombocytopenia could be secondary to infection (7) PAF (paroxysmal atrial fibrillation): Continue rate control with Coreg Hold warfarin (8) History of pulmonary embolism: Last admission - treated for possible PE with heparin drip and converted to Coumadin. Thought that maybe patient was undertreated with her NOAC due to her BMI. At that time, given the rapid nature of her respiratory compromise the re was concern for possible PE however CTA was deferred due to slightly worsened renal function from baseline as well as a VQ scan being nondiagnostic given her chronic conditions/plus inability to perform test adequately due to respiratory compromise - Hold warfarin - INR 1.9 today (9) Diastolic CHF: chronic does not appear to be currently in exacerbation continue Coreg, furosemide Is&Os, daily weights (10) COPD (chronic obstructive pulmonary disease): continue home inhalers, home O2 4L, montelukast (11) Chronic low back pain: continue home pain regimen - 5 mg oxycodone qam prn, 10 mg po qhs prn, 5 mg po daily and fentanyl patch (12) Neuropathy: Continue duloxetine, gabapentin (13) Hypothyroid: continue levothyroxine (14) DVT prophylaxis: SCDs. Subjective Ms. Mendez is feeling about the same, some cough. No s/s of bleeding Review of Systems Review of Systems: All systems reviewed & are unremarkable except as noted in HPI & below Physical Exam Physical Exam: General: no distress Eyes: normal inspection, PERLL Respiratory: chest non tender, clear to auscultation, normal breath sounds, no respiratory distress, no accessory muscle use Cardiac: regular rate and rhythm, no rub or gallop, no murmur, no edema, no jvd GI/: active bowel sounds, no abd pain or tenderness, soft, non distended Extremities: normal range of motion, normal strength, non tender Neuro/Psych: alert and oriented x 3, normal mood and affect Skin: normal color, dry Results & Data Vital Signs (Past 12 Hours) Vital Signs Temp Pulse Pulse Resp BP Pulse Ox 08/02/19 13:51 60 18 95 08/02/19 12:22 36.7 C 56 L 19 115/45 L 98 08/02/19 08:00 49 L 08/02/19 07:21 36.6 C 54 L 22 123/57 L 98 08/02/19 07:09 50 L 16 98 08/02/19 04:00 36.6 C 59 L 21 124/48 L 98 08/02/19 02:14 56 L 16 98 08/02/19 02:09 16 98 PG Care Time/CCT Total # of Minutes Spent Total Time Spent with Patient: Total time spent is greater than 50% in coordination of care (as documented) at patient's floor/unit and/or counseling patient: (1) Anemia Anemia type: unspecified type Qualified Code(s): D64.9 - Anemia, unspecified (2) Pneumonia Laterality: unspecified laterality Lung location: unspecified part of lung Pneumonia type: due to unspecified organism Qualified Code(s): J18.9 - Pneumonia, unspecified organism (3) Diastolic CHF Heart failure chronicity: acute on chronic Qualified Code(s): I50.33 - Acute on chronic diastolic (congestive) heart failure (4) Chronic low back pain Back pain laterality: unspecified Sciatica presence: unspecified whether sciatica present Qualified Code(s): M54.5 - Low back pain; G89.29 - Other chronic pain
[2019-08-02] MEDS: DULOXETINE HCL 30 MG CAP PO SCH (21:33)
[2019-08-02] MEDS: POLYETHYLENE (MIRALAX) 17 GM PACK PO SCH (21:34)
[2019-08-02] MEDS: MONTELUKAST SODIUM 10 MG TABLET PO SCH (21:34)
[2019-08-02] MEDS: GABAPENTIN 600 MG TAB PO SCH (21:35)
[2019-08-02] MEDS: ACETAMINOPHEN 500 MG TAB PO SCH (21:35)
[2019-08-03] MEDS: OXYCODONE HCL IR 5 MG TAB (IMMEDIATE RELEASE) PO PRN (00:10)
[2019-08-03] MEDS: ALBUTEROL 0.083% NEBU SOLN 3 ML VIAL INH SCH ×4 (01:15→19:38)
[2019-08-03] MEDS: RESTASIS - ORDER AWAITING ACTION SCH ×4 (01:25→23:11)
[2019-08-03] MEDS: CHECK FENTANYL PATCH PLACEMENT SCH ×6 (01:26→15:51)
[2019-08-03] MEDS: LEVOTHYROXINE SODIUM 75 MCG TABLET PO SCH (06:05)
[2019-08-03 07:04] LABS: Hematocrit (blood only) 26.4 % (37-47); Hemoglobin 8.5 g/dL (12.0-16.0); Mean Corpuscular Hemoglobin 34.4 pg (25-34); Mean Corpuscular Hgb Conc 32.2 g/dL (32-36); Mean Corpuscular Volume 106.9 fL (80-100); RDW Coefficient of Variation 17.9 % (11.5-14.5); RDW Standard Deviation 68.8 fL (36.4-46.3); Red Blood Count 2.47 M/uL (4.2-5.4); White Blood Count 7.03 K/uL (4.8-10.8)
[2019-08-03 07:22] LABS: Basophils # (auto) 0.01 K/uL (0-0.2); Basophils % (auto) 0.1 %; Eosinophils # (auto) 0.11 K/uL (0-0.5); Eosinophils % (auto) 1.6 %; Giant Platelets 1+; Hypogranular Neutrophils 2+; Immature Granulocytes # (auto) 0.08 K/uL (0.00-0.02); Immature Granulocytes % (auto) 1.1 %; Lymphocytes # (auto) 2.36 K/uL (1.2-3.4); Lymphocytes % (auto) 33.6 %; Monocytes # (auto) 1.22 K/uL (0.11-0.59); Monocytes % (auto) 17.4 %; Neutrophils # (auto) 3.25 K/uL (1.4-6.5); Neutrophils % (auto) 46.2 %; Platelet Count 24 K/uL (130-400); Platelet Estimate SIGNIFIC DECREASED (Normal)
[2019-08-03] MEDS: BUDESONIDE 0.5 MG/2 ML VIAL (PULMICORT) NEB SCH ×2 (07:26→19:38)
[2019-08-03] MEDS: fentaNYL 25 MCG/HR TDSY TD SCH (08:58)
[2019-08-03] MEDS: OXYCODONE HCL IR 5 MG TAB (IMMEDIATE RELEASE) PO SCH (09:08)
[2019-08-03] MEDS: allopurinoL 100 MG TAB PO SCH (09:16)
[2019-08-03] MEDS: BENZONATATE 100 MG CAPSULE PO SCH ×3 (09:16→21:07)
[2019-08-03] MEDS: ROPINIROLE HCL 1 MG TABLET PO SCH ×4 (09:16→21:07)
[2019-08-03] MEDS: PANTOprazole 40 MG TAB PO SCH (09:16)
[2019-08-03] MEDS: MULTIVITAMIN TAB PO SCH (09:16)
[2019-08-03] MEDS: DICLOFENAC SOD 1% GEL 100 GM TUBE EXT SCH ×2 (09:17→21:06)
[2019-08-03] MEDS: carvediloL 3.125 MG TAB PO SCH ×2 (09:17→21:08)
[2019-08-03] MEDS: TIOTROPIUM BROMIDE 5 PUFF/90 MCG INH INH SCH (09:17)
[2019-08-03] MEDS: GABAPENTIN 100 MG CAP PO SCH ×2 (09:18→15:59)
[2019-08-03] MEDS: FLUTICASONE/SALMETEROL 100/50 (ADVAIR) 14 PUFF/1 INHALER INH SCH ×2 (09:18→21:07)
[2019-08-03] MEDS: FUROSEMIDE 40 MG TAB PO SCH (09:18)
[2019-08-03] MEDS: fentaNYL 12 MCG/HR TDSY TD SCH ×2 (09:26→15:39)
[2019-08-03] MEDS: cefTRIAXone SODIUM 2,000 MG in DEXTROSE 5% 50 ML IV SCH (11:13)
[2019-08-03] MEDS ORDERED: DOXYCYCLINE HYCLATE 100 MG CAP PO SCH (12:00)
--- NOTE | 2019-08-03 12:54 | Hematology/Oncology Prog Note ---
Date of Service August 03, 2019 Assessment & Plan (1) Thrombocytopenia: Her platelet count responded well to platelet transfusion on . That strongly supports this being a drug-induced thrombocytopenia, as patients with ITP rarely respond appropriately to platelet transfusion. Her platelet count is a bit lower today, but that is to be expected. It can take up to 2 weeks after withholding the offending drug to see full recovery of counts after DITP. I anticipate her counts will recover more slowly than average due to her likely underlying bone marrow disorder. I would continue to monitor her counts daily and transfuse her for platelets <10K or for bleeding. I would consider consulting cardiology to discuss alternatives to the amiodarone. (2) Anemia: She has a chronic anemia that dates back to 2016. Her baseline hemoglobin is mostly in the 10-11 range. Her hemoglobin has been lower during her recent hospital stays. The acute drop is likely multifactorial, with components of hospital phlebotomy, marrow suppression from her various infections, and some of her bleeding. I would consider transfusion for a hemoglobin <8. Subjective Ms. Mendez looks good today. Her breathing is stable and she still sometimes coughs up brown-dov sputum. However, she denies any bright red blood in her sputum. She also denies any nosebleeds or blood in her urine or stool. She also denies any chest pain or palpitations. Review of Systems Constitutional: + weakness (generalized); no fever Eyes: no worsening vision Ear, Nose, Mouth, Throat: no epistaxis and no bleeding gums Respiratory: + cough, + change in sputum (brown-dov, no bright red blood) and + dyspnea (stable) Cardiovascular: no chest pain and no palpitations Gastrointestinal: no abdominal pain, no nausea and no blood in stools Genitourinary: no dysuria and no hematuria Integumentary: no rash and no bleeding lesions Neurologic: no headache(s) Hematologic / Lymphatic: no easy bleeding Physical Exam 2 Constitutional: + ill appearing (chronically) and + obese; no acute distress Eyes: + anicteric sclerae and EOM intact bilaterally ENMT: external ear and nose normal, oropharynx normal Respiratory: normal respiratory effort Auscultation: lungs clear to auscultation bilaterally and + diminished lung sounds Cardiovascular: Rate/Rhythm: regular rate and regular rhythm Gastrointestinal (Abdomen): Inspection/Auscultation: normal bowel sounds; abdomen not distended Percussion/Palpation: abdomen soft; abdomen nontender Psychiatric: A+Ox3, euthymic affect Lymphatic: no cervical or axillary lymphadenopathy Results & Data Vital Signs (Past 12 Hours) Vital Signs Temp Pulse Pulse Pulse Resp BP Pulse Ox 08/03/19 08:46 36.9 C 19 102/59 L 92 08/03/19 07:27 68 18 98 08/03/19 04:17 73 08/03/19 03:26 36.8 C 71 19 105/46 L 93 08/03/19 01:18 63 18 97 Laboratory Results Laboratory Tests 08/01/19 08/02/19 08/03/19 07:30 06:14 06:24 WBC 6.59 7.03 Hgb 8.4 L 8.5 L Plt Count 9 L* 31 L D 24 L* (1) Anemia Anemia type: unspecified type Qualified Code(s): D64.9 - Anemia, unspecified
[2019-08-03] MEDS ORDERED: VANCOMYCIN CONSULT ACTIVE PRN (13:57)
--- NOTE | 2019-08-03 13:59 | Hospitalist Progress Note ---
Date of Service August 03, 2019 Assessment & Plan (1) Thrombocytopenia: (2) Epistaxis: (3) Anemia: (4) Elevated INR: Thrombocytopenia, anemia, epistaxis, elevated INR on admission Patient had started warfarin last admission, upon presentation to ED here her INR was >10.4 on admission, platelets 13,000, fibrinogen 414, d-dimer 710 Given 10 mg IV vitamin K, FFP, and platelets in the ED INR reversed to 1.3 initially but juve again to 1.9 08/02, platelets responded to 2 units of platelets on 08/01 and are 24,000 today Hgb stable, no further s/s of bleeding Peripheral smear - severe thrombocytopenia, macrocytic anemia and apparent dysplasia of PMN leukocytes Amiodarone held as likely etiology of thrombocytopenia Consulted hematology - transfuse for platelets below 10,000, thrombocytopenia may take 2 weeks to fully resolve (5) Pneumonia: CT scan with bilateral consolidation vs atelectasis. Continue ceftriaxone, will add vancomycin as patient is not improving much in her respiratory status/still coughing up brown sputum. MRSA swab was positive No fever or leukocytosis (6) Venous stasis: vs Cellulitis Patient has bilateral edema and erythema of lower extremities which she reports is chronic. Difficult to tell if it is infection vs chronic changes given that it is warm, red, and swollen but symmetrical. Ceftriaxone started for pneumonia should cover. No fever or leukocytosis Add Eucerin cream for flaking skin (7) PAF (paroxysmal atrial fibrillation): Continue rate control with Coreg Hold warfarin (8) History of pulmonary embolism: Last admission - treated for possible PE with heparin drip and converted to Coumadin. Thought that maybe patient was undertreated with her NOAC due to her BMI. At that time, given the rapid nature of her respiratory compromise there was concern for possible PE however CTA was deferred due to slightly worsened renal function from baseline as well as a VQ scan being nondiagnostic given her chronic conditions/plus inability to perform test adequately due to respiratory compromise. It was not ever established that there truly was a PE. - Hold warfarin - INR 1.9 08/02, repeat INR 08/04 (9) Diastolic CHF: chronic does not appear to be currently in exacerbation continue Coreg, furosemide Is&Os, daily weights (10) COPD (chronic obstructive pulmonary disease): continue home inhalers, home O2 4L, montelukast (11) Chronic low back pain: continue home pain regimen - 5 mg oxycodone qam prn, 10 mg po qhs prn, 5 mg po daily and fentanyl patch (12) Neuropathy: Continue home duloxetine, gabapentin (13) Hypothyroid: continue levothyroxine (14) DVT prophylaxis: SCDs. Dispo: from [facility] - PT/OT orders placed Subjective Ms. Mendez feels about the same, some sob and cough. She does not have any new complaints Review of Systems Review of Systems: All systems reviewed & are unremarkable except as noted in HPI & below Physical Exam Physical Exam: General: no distress Eyes: normal inspection, PERLL Respiratory: chest non tender, clear to auscultation, moist cough, crackles bases bilaterally , no accessory muscle use Cardiac: regular rate and rhythm, no rub or gallop, no murmur, no edema, no jvd GI/: active bowel sounds, no abd pain or tenderness, soft, non distended Extremities: normal range of motion, normal strength, non tender Neuro/Psych: alert and oriented x 3, normal mood and affect Skin: normal color, dry, erythema with dry and peeling skin bilateral lower extremities Results & Data Vital Signs (Past 12 Hours) Vital Signs Temp Pulse Pulse Resp BP Pulse Ox 08/03/19 13:57 36.8 C 66 20 117/56 L 92 08/03/19 13:35 63 20 98 08/03/19 08:46 36.9 C 19 102/59 L 92 08/03/19 07:27 68 18 98 08/03/19 04:17 73 08/03/19 03:26 36.8 C 71 19 105/46 L 93 PG Care Time/CCT Total # of Minutes Spent Total Time Spent with Patient: Total time spent is greater than 50% in coordination of care (as documented) at patient's floor/unit and/or counseling patient: (1) Diastolic CHF Heart failure chronicity: acute on chronic Qualified Code(s): I50.33 - Acute on chronic diastolic (congestive) heart failure (2) Chronic low back pain Back pain laterality: unspecified Sciatica presence: unspecified whether sciatica present Qualified Code(s): M54.5 - Low back pain; G89.29 - Other chronic pain (3) Anemia Anemia type: unspecified type Qualified Code(s): D64.9 - Anemia, unspecified (4) Pneumonia Laterality: unspecified laterality Lung location: unspecified part of lung Pneumonia type: due to unspecified organism Qualified Code(s): J18.9 - Pneumonia, unspecified organism
[2019-08-03] MEDS ORDERED: VANCOMYCIN HCL 1,000 MG in SODIUM CHLORIDE 0.9% 250 ML IV SCH (14:00)
[2019-08-03] MEDS ORDERED: VANCOMYCIN HCL 2,500 MG in SODIUM CHLORIDE 0.9% 500 ML IV SCH (14:30)
--- NOTE | 2019-08-03 14:43 | Pharmacy Report ---
Pharmacy Abx Initial Consult - Date of Service August 03, 2019 - Pharmacy Dosing Scope Date of Consult: 08/03/19 Consultation requested by: CIARA Byers Pharmacy is consulted to initiate VANCOMYCIN IV dosing therapy, order appropriate labs and adjust drug dose/frequency. - Subjective The patient is a 88 year old F admitted on 07/30/19 16:12. - Objective Height: 5 ft 3 in Weight: 136.1 kg Vital Signs (Past 12hrs): Vital Signs Temp Pulse Pulse Resp BP Pulse Ox 08/03/19 13:57 36.8 C 66 20 117/56 L 92 08/03/19 13:35 63 20 98 08/03/19 08:46 36.9 C 19 102/59 L 92 08/03/19 07:27 68 18 98 08/03/19 04:17 73 08/03/19 03:26 36.8 C 71 19 105/46 L 93 Lab Results (24hrs): Laboratory Tests (24 Hours) 08/03/19 06:24 WBC 7.03 Neut # (Auto) 3.25 - Risk Factors for Resistance * Resident in a jail or extended-care facility * Hospitalization for 48 hours or more within the past 90 days * Current hospitalization > 5 days * Antimicrobial use within the last 90 days - Assessment & Plan Assessment 88 year old F ordered Vancomycin/Rocephin for PNA/cellulitis. Plan Vancomycin IV * Estimated PK Parameters: Vd 0.54 L/kg, Amaury ~0.046hr-1, t1/2 ~15hr * Loading dose: 2500mg (~18mg/kg). * Maintenance dose: 1750mg IV (~13 mg/kg) every 18 hours. * Goal trough level for PNA : 15 to 20 mcg/mL. * Trough level ordered for 08/05/19 @ 0200. * Trough level is ordered prior to Css due to possible accumulation. * Patient is known to pharmacy from prior consults. It appears this dose produced therapeutic drug levels in May 2019. Will monitor closely. Pharmacy will continue to follow and will adjust dose/frequency as necessary. Thank you.
[2019-08-03] MEDS: POLYETHYLENE (MIRALAX) 17 GM PACK PO SCH (21:06)
[2019-08-03] MEDS: ACETAMINOPHEN 500 MG TAB PO SCH (21:07)
[2019-08-03] MEDS: MONTELUKAST SODIUM 10 MG TABLET PO SCH (21:08)
[2019-08-03] MEDS: DULOXETINE HCL 30 MG CAP PO SCH (21:08)
[2019-08-03] MEDS: GABAPENTIN 600 MG TAB PO SCH (21:08)
[2019-08-03] MEDS: EUCERIN CR 120 GM JAR EXT SCH (22:54)
[2019-08-04] MEDS: CHECK FENTANYL PATCH PLACEMENT SCH ×8 (00:09→23:11)
[2019-08-04] MEDS: ALBUTEROL 0.083% NEBU SOLN 3 ML VIAL INH SCH ×4 (01:09→19:02)
[2019-08-04] MEDS: LEVOTHYROXINE SODIUM 75 MCG TABLET PO SCH (06:27)
[2019-08-04] MEDS: BUDESONIDE 0.5 MG/2 ML VIAL (PULMICORT) NEB SCH ×2 (07:02→19:02)
[2019-08-04 07:19] LABS: Hematocrit (blood only) 26.6 % (37-47); Hemoglobin 8.5 g/dL (12.0-16.0); Mean Corpuscular Hemoglobin 34.6 pg (25-34); Mean Corpuscular Volume 108.1 fL (80-100); RDW Coefficient of Variation 18.1 % (11.5-14.5); RDW Standard Deviation 70.6 fL (36.4-46.3); Red Blood Count 2.46 M/uL (4.2-5.4); White Blood Count 7.08 K/uL (4.8-10.8)
[2019-08-04 07:20] LABS: BUN Creatinine Ratio 30.7 (10-20); Calcium 8.9 mg/dl (8.5-10.1); Creatinine Clr Calc Pharmacy 53.2 ml/min; Potassium 4.2 mmol/L (3.5-5.1)
[2019-08-04 07:47] LABS: Basophils # (auto) 0.02 K/uL (0-0.2); Basophils % (auto) 0.3 %; Eosinophils % (auto) 1.4 %; Hypogranular Neutrophils 3+; Immature Granulocytes # (auto) 0.12 K/uL (0.00-0.02); Immature Granulocytes % (auto) 1.7 %; Lymphocytes # (auto) 2.28 K/uL (1.2-3.4); Lymphocytes % (auto) 32.2 %; Monocytes # (auto) 1.47 K/uL (0.11-0.59); Monocytes % (auto) 20.8 %; Neutrophils # (auto) 3.09 K/uL (1.4-6.5); Neutrophils % (auto) 43.6 %; Platelet Count 29 K/uL (130-400); Platelet Estimate Decreased (Normal)
[2019-08-04] MEDS: VANCOMYCIN HCL 1,750 MG in SODIUM CHLORIDE 0.9% 500 ML IV SCH (08:06)
[2019-08-04] MEDS: RESTASIS - ORDER AWAITING ACTION SCH ×3 (08:07→23:12)
[2019-08-04] MEDS: FLUTICASONE/SALMETEROL 100/50 (ADVAIR) 14 PUFF/1 INHALER INH SCH ×2 (08:10→21:56)
[2019-08-04] MEDS: MULTIVITAMIN TAB PO SCH (08:10)
[2019-08-04] MEDS: carvediloL 3.125 MG TAB PO SCH ×2 (08:10→21:57)
[2019-08-04] MEDS: EUCERIN CR 120 GM JAR EXT SCH ×2 (08:11→21:59)
[2019-08-04] MEDS: allopurinoL 100 MG TAB PO SCH (08:11)
[2019-08-04] MEDS: PANTOprazole 40 MG TAB PO SCH (08:11)
[2019-08-04] MEDS: GABAPENTIN 100 MG CAP PO SCH ×2 (08:11→16:09)
[2019-08-04] MEDS: ROPINIROLE HCL 1 MG TABLET PO SCH ×4 (08:11→21:58)
[2019-08-04] MEDS: FUROSEMIDE 40 MG TAB PO SCH (08:11)
[2019-08-04] MEDS: DICLOFENAC SOD 1% GEL 100 GM TUBE EXT SCH ×2 (08:12→22:00)
[2019-08-04] MEDS: BENZONATATE 100 MG CAPSULE PO SCH ×3 (08:12→21:58)
[2019-08-04] MEDS: TIOTROPIUM BROMIDE 5 PUFF/90 MCG INH INH SCH (08:12)
[2019-08-04] MEDS: OXYCODONE HCL IR 5 MG TAB (IMMEDIATE RELEASE) PO SCH (08:26)
--- NOTE | 2019-08-04 11:10 | Hospitalist Progress Note ---
Date of Service August 04, 2019 Assessment & Plan (1) Thrombocytopenia: (2) Epistaxis: (3) Anemia: (4) Elevated INR: Thrombocytopenia, anemia, epistaxis, elevated INR on admission Patient had started warfarin last admission, upon presentation to ED here her INR was >10.4 on admission, platelets 13,000, fibrinogen 414, d-dimer 710 Given 10 mg IV vitamin K, FFP, and platelets in the ED INR reversed to 1.3 initially but juve again to 1.9 08/02, platelets responded to 2 units of platelets on 08/01 and are 29,000 today Hgb stable, no further s/s of bleeding Peripheral smear - severe thrombocytopenia, macrocytic anemia and apparent dysplasia of PMN leukocytes Amiodarone held as likely etiology of thrombocytopenia Consulted hematology - transfuse for platelets below 10,000, thrombocytopenia may take 2 weeks to fully resolve Will recheck INR tomorrow morning. Will consider restarting anticoagulation when platelets are above 50,000 (5) Pneumonia: CT scan with bilateral consolidation vs atelectasis. Continue ceftriaxone and vancomycin - MRSA swab was positive No fever or leukocytosis (6) Venous stasis: vs Cellulitis Patient has bilateral edema and erythema of lower extremities which she reports is chronic. Difficult to tell if it is infection vs chronic changes given that it is warm, red, and swollen but symmetrical. Ceftriaxone and vancomycin started for pneumonia should cover. No fever or leukocytosis Continue Eucerin cream for flaking skin (7) PAF (paroxysmal atrial fibrillation): Continue rate control with Coreg Amiodarone discontinued as likely source of thrombocytopenia. So far patient has maintained SR with good rate control. Hold warfarin as above (8) History of pulmonary embolism: Last admission - treated for possible PE with heparin drip and converted to Coumadin. Thought that maybe patient was undertreated with her NOAC due to her BMI. At that time, given the rapid nature of her respiratory compromise there was concern for possible PE however CTA was deferred due to slightly worsened renal function from baseline as well as a VQ scan being nondiagnostic given her chronic conditions/plus inability to perform test adequately due to respiratory compromise. It was not ever established that there truly was a PE. - Hold warfarin - INR 1.9 08/02, repeat INR 08/05 (9) Diastolic CHF: chronic does not appear to be currently in exacerbation continue Coreg, furosemide Is&Os, daily weights (10) COPD (chronic obstructive pulmonary disease): continue home inhalers and montelukast at baseline home O2 on 4L, (11) Chronic low back pain: Pain well controlled with home pain regimen - 5 mg oxycodone qam prn, 10 mg po qhs prn, 5 mg po daily and fentanyl patch (12) Neuropathy: Continue home duloxetine, gabapentin (13) Hypothyroid: continue levothyroxine (14) DVT prophylaxis: SCDs, warfarin held Dispo: from [facility] - PT/OT orders placed Subjective Ms. Mendez continues to have some cough and sob, not worsening. She has no other complaints Review of Systems Review of Systems: All systems reviewed & are unremarkable except as noted in HPI & below Physical Exam Physical Exam: General: no distress Eyes: normal inspection, PERLL Respiratory: chest non tender, crackles bases bilaterally, no respiratory distress, no accessory muscle use Cardiac: regular rate and rhythm, no rub or gallop, no murmur, no edema, no jvd GI/: active bowel sounds, no abd pain or tenderness, soft, non distended Extremities: normal range of motion, normal strength, non tender Neuro/Psych: alert and oriented x 3, normal mood and affect Skin: normal color, dry, erythema lower extremities, right lower extremity weeping Results & Data Vital Signs (Past 12 Hours) Vital Signs Temp Pulse Pulse Pulse Resp BP Pulse Ox 08/04/19 07:47 36.5 C 69 23 136/57 L 96 08/04/19 07:02 55 L 16 87 L 08/04/19 03:44 36.6 C 69 20 114/48 L 96 08/04/19 01:11 59 L 14 97 08/04/19 01:10 64 14 97 08/04/19 00:41 36.5 C 63 17 103/39 L 96 PG Care Time/CCT Total # of Minutes Spent Total Time Spent with Patient: Total time spent is greater than 50% in coordination of care (as documented) at patient's floor/unit and/or counseling patient: (1) Anemia Anemia type: unspecified type Qualified Code(s): D64.9 - Anemia, unspecified (2) Pneumonia Laterality: unspecified laterality Lung location: unspecified part of lung Pneumonia type: due to unspecified organism Qualified Code(s): J18.9 - Pneumonia, unspecified organism (3) Diastolic CHF Heart failure chronicity: acute on chronic Qualified Code(s): I50.33 - Acute on chronic diastolic (congestive) heart failure (4) Chronic low back pain Back pain laterality: unspecified Sciatica presence: unspecified whether sciatica present Qualified Code(s): M54.5 - Low back pain; G89.29 - Other chron ic pain
[2019-08-04] MEDS: cefTRIAXone SODIUM 2,000 MG in DEXTROSE 5% 50 ML IV SCH (12:32)
[2019-08-04] MEDS: ACETAMINOPHEN 325 MG TAB PO PRN (12:43)
[2019-08-04] MEDS: DULOXETINE HCL 30 MG CAP PO SCH (21:58)
[2019-08-04] MEDS: MONTELUKAST SODIUM 10 MG TABLET PO SCH (21:58)
[2019-08-04] MEDS: ACETAMINOPHEN 500 MG TAB PO SCH (21:59)
[2019-08-04] MEDS: POLYETHYLENE (MIRALAX) 17 GM PACK PO SCH (21:59)
[2019-08-04] MEDS: GABAPENTIN 600 MG TAB PO SCH (22:20)
[2019-08-05] MEDS: ALBUTEROL 0.083% NEBU SOLN 3 ML VIAL INH SCH ×4 (01:10→19:04)
[2019-08-05] MEDS ORDERED: VANCOMYCIN TROUGH ONE (01:30)
[2019-08-05 02:14] LABS: INR 1.9 (0.9-1.1); Prothrombin Time 18.8 Seconds (9.0-12.0)
[2019-08-05 02:19] LABS: Platelet Count 24 K/uL (130-400)
[2019-08-05 02:23] LABS: BUN Creatinine Ratio 27.5 (10-20); Calcium 8.9 mg/dl (8.5-10.1); Creatinine Clr Calc Pharmacy 50.2 ml/min; Est GFR (African American) 54.1; Est GFR (Non-African American) 46.6; Potassium 4.3 mmol/L (3.5-5.1)
[2019-08-05 02:28] LABS: Basophils # (auto) 0.01 K/uL (0-0.2); Basophils % (auto) 0.1 %; Eosinophils # (auto) 0.14 K/uL (0-0.5); Hematocrit (blood only) 26.3 % (37-47); Hemoglobin 8.5 g/dL (12.0-16.0); Immature Granulocytes # (auto) 0.12 K/uL (0.00-0.02); Immature Granulocytes % (auto) 1.7 %; Lymphocytes # (auto) 2.64 K/uL (1.2-3.4); Mean Corpuscular Hemoglobin 34.6 pg (25-34); Mean Corpuscular Hgb Conc 32.3 g/dL (32-36); Mean Corpuscular Volume 106.9 fL (80-100); Monocytes # (auto) 1.24 K/uL (0.11-0.59); Monocytes % (auto) 17.4 %; Neutrophils # (auto) 2.98 K/uL (1.4-6.5); Neutrophils % (auto) 41.8 %; Platelet Estimate SIGNIFIC DECREASED (Normal); RBC Morphology Unremarkable; RDW Coefficient of Variation 18.2 % (11.5-14.5); Red Blood Count 2.46 M/uL (4.2-5.4); White Blood Count 7.13 K/uL (4.8-10.8)
[2019-08-05] MEDS: LEVOTHYROXINE SODIUM 75 MCG TABLET PO SCH (02:35)
[2019-08-05] MEDS: VANCOMYCIN HCL 1,750 MG in SODIUM CHLORIDE 0.9% 500 ML IV SCH ×2 (02:35→21:11)
[2019-08-05] MEDS: BUDESONIDE 0.5 MG/2 ML VIAL (PULMICORT) NEB SCH ×2 (07:06→19:04)
[2019-08-05] MEDS: MULTIVITAMIN TAB PO SCH (08:52)
[2019-08-05] MEDS: BENZONATATE 100 MG CAPSULE PO SCH ×3 (08:52→20:58)
[2019-08-05] MEDS: PANTOprazole 40 MG TAB PO SCH (08:52)
[2019-08-05] MEDS: ROPINIROLE HCL 1 MG TABLET PO SCH ×4 (08:52→20:57)
[2019-08-05] MEDS: FLUTICASONE/SALMETEROL 100/50 (ADVAIR) 14 PUFF/1 INHALER INH SCH ×2 (08:53→20:54)
[2019-08-05] MEDS: FUROSEMIDE 40 MG TAB PO SCH (08:53)
[2019-08-05] MEDS: GABAPENTIN 100 MG CAP PO SCH ×2 (08:53→16:55)
[2019-08-05] MEDS: carvediloL 3.125 MG TAB PO SCH ×2 (08:53→20:55)
[2019-08-05] MEDS: DICLOFENAC SOD 1% GEL 100 GM TUBE EXT SCH ×2 (08:54→20:58)
[2019-08-05] MEDS: allopurinoL 100 MG TAB PO SCH (08:54)
[2019-08-05] MEDS: EUCERIN CR 120 GM JAR EXT SCH ×2 (08:55→20:58)
[2019-08-05] MEDS: CHECK FENTANYL PATCH PLACEMENT SCH ×6 (08:55→23:13)
[2019-08-05] MEDS: RESTASIS - ORDER AWAITING ACTION SCH ×3 (08:55→23:13)
[2019-08-05] MEDS: OXYCODONE HCL IR 5 MG TAB (IMMEDIATE RELEASE) PO SCH (08:59)
--- NOTE | 2019-08-05 09:48 | Pharmacy Report ---
Pharmacy Abx Dose Short Note - Date of Service August 05, 2019 - Assessment & Plan Assessment * 88 year old F receiving VANCOMYCIN + CEFTRIAXONE for treatment of pneumonia + cellulitis (vs venous stasis) of b/l lower ext. * Day # 4 of antimicrobial therapy * +MRSA nares * CT chest read as progressive b/l atelectasis/consolidation * Renal fxn stable * Sat well on 4L NC, VSS, afebrile Plan Vancomycin * Trough level of 17.1 mcg/mL is therapeutic. This level was drawn after only 1 maintenance dose and level may not be reflective of steady-state. Will recheck level tomorrow to confirm target level achieved and not climbing. * Continue dose of 1750 mg IV every 18 hours * Goal trough level for pulm infxn : 15 to 20 mcg/mL Pharmacy will continue to follow and will adjust dose/frequency as necessary. Thank you.
[2019-08-05] MEDS: TIOTROPIUM BROMIDE 5 PUFF/90 MCG INH INH SCH (10:00)
--- NOTE | 2019-08-05 10:11 | Hospitalist Progress Note ---
Date of Service August 05, 2019 Assessment & Plan (1) Thrombocytopenia: - Likely Amiodarone induced; platelet count now is now stable following transfusion (most recently received 2 units on 08/01) - Peripheral smear showed severe thrombocytopenia, macrocytic anemia and dysplasia of PMN leukocytes. - Consulted hematology -- may require up to 2 weeks for thrombocytopenia to fully resolve. - D/c'ed Amiodarone at admission. - Continue to trend CBC daily -- hold anticoagulation until plt >50K. (2) Epistaxis: - Related to thrombocytopenia, now resolved. (3) Anemia: - Hgb ~8-9 during this admission, baseline ~9-10 per previous labs. - Macrocytic anemia -- folate & B12 WNL on labs in May 2019. - Will continue to trend CBC daily. (4) Elevated INR: - INR was >10.4 on admission in setting of Coumadin therapy. - Received Vit K, FFP and Platelets in ED; INR now reversed, was 1.9 this morning. - Will continue to hold Coumadin as plt <50K -- will need to resume once platelet count recovers. - Monitor INR levels daily. (5) Pneumonia: - CT chest with bilat consolidations vs. atelectasis. - Continue Ceftriaxone and Vancomycin -- will need to convert to PO abx; MRSA swab was negative. - Albuterol q6hr ATC, Tesslon perles TID, Pulmicort BID. - Has been afebrile, no leukocytosis noted. (6) Venous stasis: - Cellulitis noted on bilat LE -- erythema now improving. - Pt. reports increased RLE edema, not significant on exam; will continue to monitor - consider doppler to rule out DVT as anticoagulation has been held. - Continue Ceftriaxone/Vanc -- convert to PO abx with coverage of cellulitis at discharge. - Eucerin cream for wound care/dry skin. (7) PAF (paroxysmal atrial fibrillation): - Continue Coreg as prescribed. - D/c'ed Amiodarone due to toxicity. - Holding Warfarin -- see above. (8) History of pulmonary embolism: - Transitioned to Coumadin during last admission (concern she failed NOAC therapy due to high BMI); did not complete imaging to confirm PE but was assumed she had diagnosis due to resp compromise. - Holding Coumadin as noted above in setting of thrombocytopenia; recommend restarting once plt >50K. - Consider doppler of LE due to increased edema -- would not change treatment plan. (9) Diastolic CHF: - Chronic, appears well compensated. - Echo on 07/15 showed EF 55-60%, mild LVH, no wall motion abnormalities. - Continue Coreg and Lasix as prescribed. - Monitor daily weights and net I/Os. (10) COPD (chronic obstructive pulmonary disease): - On baseline oxygen requirements of 4L via nasal cannula; no evidence of acute exacerbation. - Continue home inhalers as prescribed. (11) Chronic low back pain: - Continue home pain regimen with Oxycodone and Fentanyl patch. (12) Stage III chronic kidney disease: - Renally dose all meds. - Cr currently at baseline. (13) Neuropathy: - Continue home Cymbalta and Gabapentin as prescribed. (14) Hypothyroid: - Continue home Synthroid. - TSH is 9.87 -- will increase to 88 mcg daily. - Will need repeat TFTs in 4-6 weeks. (15) RLS (restless legs syndrome): - Continue Requip QID as prescribed. (16) DVT prophylaxis: - SCDs; holding Warfarin (see above) Dispo: Discharge to [facility] likely on 08/06/19 pending AM labs. Subjective Pt. is doing well -- breathing is stable, on baseline oxygen requirements at 4L via NC. Redness on bilat LE improving; pt. is concerned RLE >LLE, no significant difference noted on exam. Denies pain in legs. No evidence of acute bleeding. Will likely be stable for discharge back to [facility] on 08/06 pending stable labs in the AM. Review of Systems Review of Systems: All systems reviewed & are unremarkable except as noted in HPI & below Constitutional: no fever, no chills, no fatigue, no weakness and no anorexia Respiratory: no cough, no dyspnea, no dyspnea on exertion and no wheezing Cardiovascular: + edema; no chest pain and no palpitations Gastrointestinal: no abdominal pain, no nausea, no vomiting and no constipation Genitourinary: no difficulty urinating Musculoskeletal: no back pain and no joint pain Integumentary: + erythema (Bilat LE ); no rash Physical Exam Physical Exam: General: Resting comfortably HEENT: NC/AT; PERRLA with EOMI; [place] conjunctiva, MMM. No erythema of posterior pharynx Neck: Supple and nontender Cardiac: RRR Lungs: on 4L via NC; crackles in bilat lower lung bases. Abdomen: Bowel normoactive X 4; Nontender to palpation Extremities: Warm. +2 bilat LE edema -- erythema noted on bilat calves, appears chronic. Nontender to light palpation. Neuro: No focal weakness Skin: see above. Results & Data Vital Signs (Past 12 Hours) Vital Signs Temp Pulse Pulse Pulse Resp BP Pulse Ox 08/05/19 07:08 63 18 97 08/05/19 06:59 36.9 C 70 19 137/50 L 96 08/05/19 02:39 36.7 C 65 22 129/75 95 08/05/19 01:10 67 18 95 08/05/19 00:00 36.6 C 71 19 132/52 L 95 08/04/19 23:12 57 L Laboratory Results 08/05/19 08/05/19 08/05/19 Range/Units 01:23 01:23 01:23 WBC (4.8-10.8) K/uL RBC (4.2-5.4) M/uL Hgb (12.0-16.0) g/dL Hct (37-47) % MCV (80-100) fL MCH (25-34) pg MCHC (32-36) g/dL RDW Std Deviation (36.4-46.3) fL RDW Coeff of Marta (11.5-14.5) % Plt Count (130-400) K/uL Immature Gran % (Auto) % Neut % (Auto) % Lymph % (Auto) % [place] % (Auto) % Eos % (Auto) % Baso % (Auto) % Immature Gran # (Auto) (0.00-0.02) K/uL Neut # (Auto) (1.4-6.5) K/uL Lymph # (Auto) (1.2-3.4) K/uL [place] # (Auto) (0.11-0.59) K/uL Eos # (Auto) (0-0.5) K/uL Baso # (Auto) (0-0.2) K/uL Platelet Estimate (Normal) RBC Morphology PT 18.8 H (9.0-12.0) Seconds INR 1.9 H (0.9-1.1) Sodium 141 (136-145) mmol/L Potassium 4.3 (3.5-5.1) mmol/L Chloride 102 (98-107) mmol/L Carbon Dioxide 35 H (21-32) mmol/L Anion Gap 4.0 (3-11) BUN 29 H (7-18) mg/dl Creatinine 1.07 (0.6-1.2) mg/dl Est Cr Clr Drug Dosing 50.2 ml/min Est GFR ( Amer) 54.1 Est GFR (Non-Af Amer) 46.6 BUN/Creatinine Ratio 27.5 H (10-20) Glucose 128 H (70-99) mg/dl Calcium 8.9 (8.5-10.1) mg/dl Vancomycin Trough 17.1 (See Comment) mcg/ml 08/05/19 Range/Units 01:23 WBC 7.13 (4.8-10.8) K/uL RBC 2.46 L (4.2-5.4) M/uL Hgb 8.5 L (12.0-16.0) g/dL Hct 26.3 L (37-47) % MCV 106.9 H (80-100) fL MCH 34.6 H (25-34) pg MCHC 32.3 (32-36) g/dL RDW Std Deviation 71.0 H (36.4-46.3) fL RDW Coeff of Marta 18.2 H (11.5-14.5) % Plt Count 24 L* (130-400) K/uL Immature Gran % (Auto) 1.7 % Neut % (Auto) 41.8 % Lymph % (Auto) 37.0 % [place] % (Auto) 17.4 % Eos % (Auto) 2.0 % Baso % (Auto) 0.1 % Immature Gran # (Auto) 0.12 H (0.00-0.02) K/uL Neut # (Auto) 2.98 (1.4-6.5) K/uL Lymph # (Auto) 2.64 (1.2-3.4) K/uL [place] # (Auto) 1.24 H (0.11-0.59) K/uL Eos # (Auto) 0.14 (0-0.5) K/uL Baso # (Auto) 0.01 (0-0.2) K/uL Platelet Estimate SIGNIFIC DECREASED (Normal) RBC Morphology Unremarkable PT (9.0-12.0) Seconds INR (0.9-1.1) Sodium (136-145) mmol/L Potassium (3.5-5.1) mmol/L Chloride (98-107) mmol/L Carbon Dioxide (21-32) mmol/L Anion Gap (3-11) BUN (7-18) mg/dl Creatinine (0.6-1.2) mg/dl Est Cr Clr Drug Dosing ml/min Est GFR ( Amer) Est GFR (Non-Af Amer) BUN/Creatinine Ratio (10-20) Glucose (70-99) mg/dl Calcium (8.5-10.1) mg/dl Vancomycin Trough (See Comment) mcg/ml PG Care Time/CCT Total # of Minutes Spent Total Time Spent with Patient: Total time spent is greater than 50% in coordination of care (as documented) at patient's floor/unit and/or counseling patient: (1) Diastolic CHF Heart failure chronicity: acute on chronic Qualified Code(s): I50.33 - Acute on chronic diastolic (congestive) heart failure (2) Chronic low back pain Back pain laterality: unspecified Sciatica presence: unspecified whether sciatica present Qualified Code(s): M54.5 - Low back pain; G89.29 - Other chronic pain (3) Anemia Anemia type: unspecified type Qualified Code(s): D64.9 - Anemia, unspecified (4) Pneumonia Laterality: unspecified laterality Lung location: unspecified part of lung Pneumonia type: due to unspecified organism Qualified Code(s): J18.9 - Pneumonia, unspecified organism
[2019-08-05] MEDS: cefTRIAXone SODIUM 2,000 MG in DEXTROSE 5% 50 ML IV SCH (12:33)
[2019-08-05 19:54] LABS: Appearance Urine Clear (Clear); Bilirubin Urine Negative (Negative); Blood Urine Negative (Negative); Color Urine Yellow; Glucose Urine UA Negative (Negative); Ketones Urine Negative (Negative); Leukocyte Esterase Urine Negative (Negative); Nitrite Urine Negative (Negative); Protein Urine Negative (Negative); Specific Gravity Urine 1.013 (1.000-1.030); Urobilinogen Urine Negative (Negative); pH Urine 7.5 (4.5-7.5)
[2019-08-05] MEDS: DULOXETINE HCL 30 MG CAP PO SCH (20:55)
[2019-08-05] MEDS: GABAPENTIN 600 MG TAB PO SCH (20:56)
[2019-08-05] MEDS: POLYETHYLENE (MIRALAX) 17 GM PACK PO SCH (20:56)
[2019-08-05] MEDS: MONTELUKAST SODIUM 10 MG TABLET PO SCH (20:57)
[2019-08-05] MEDS: ACETAMINOPHEN 500 MG TAB PO SCH (20:57)
[2019-08-06] MEDS: OXYCODONE HCL IR 5 MG TAB (IMMEDIATE RELEASE) PO PRN (00:11)
[2019-08-06] MEDS: ALBUTEROL 0.083% NEBU SOLN 3 ML VIAL INH SCH ×2 (01:27→07:16)
[2019-08-06] MEDS: EUCERIN CR 120 GM JAR EXT SCH ×2 (06:11→20:45)
[2019-08-06] MEDS: LEVOTHYROXINE SODIUM 88 MCG TABLET PO SCH (06:11)
[2019-08-06] MEDS: BUDESONIDE 0.5 MG/2 ML VIAL (PULMICORT) NEB SCH ×2 (07:16→19:41)
[2019-08-06 07:20] LABS: INR 1.7 (0.9-1.1); Prothrombin Time 16.7 Seconds (9.0-12.0)
[2019-08-06 07:42] LABS: BUN Creatinine Ratio 28.2 (10-20); Calcium 9.2 mg/dl (8.5-10.1); Creatinine Clr Calc Pharmacy 52.2 ml/min; Est GFR (African American) 55.9; Est GFR (Non-African American) 48.3
[2019-08-06 07:44] LABS: Basophils # (auto) 0.02 K/uL (0-0.2); Basophils % (auto) 0.2 %; Eosinophils # (auto) 0.11 K/uL (0-0.5); Eosinophils % (auto) 1.4 %; Hematocrit (blood only) 27.7 % (37-47); Hemoglobin 8.8 g/dL (12.0-16.0); Immature Granulocytes % (auto) 2.5 %; Lymphocytes # (auto) 2.53 K/uL (1.2-3.4); Lymphocytes % (auto) 31.5 %; Mean Corpuscular Hemoglobin 34.2 pg (25-34); Mean Corpuscular Hgb Conc 31.8 g/dL (32-36); Mean Corpuscular Volume 107.8 fL (80-100); Monocytes # (auto) 1.24 K/uL (0.11-0.59); Monocytes % (auto) 15.5 %; Neutrophils # (auto) 3.92 K/uL (1.4-6.5); Neutrophils % (auto) 48.9 %; Platelet Count 24 K/uL (130-400); Platelet Estimate SIGNIFIC DECREASED (Normal); RDW Coefficient of Variation 18.2 % (11.5-14.5); RDW Standard Deviation 71.8 fL (36.4-46.3); Red Blood Count 2.57 M/uL (4.2-5.4); White Blood Count 8.02 K/uL (4.8-10.8)
[2019-08-06] MEDS: RESTASIS - ORDER AWAITING ACTION SCH ×2 (07:45→14:52)
[2019-08-06] MEDS: fentaNYL 12 MCG/HR TDSY TD SCH (07:49)
[2019-08-06] MEDS: fentaNYL 25 MCG/HR TDSY TD SCH (07:50)
[2019-08-06] MEDS: CHECK FENTANYL PATCH PLACEMENT SCH ×4 (07:50→14:52)
[2019-08-06] MEDS: GABAPENTIN 100 MG CAP PO SCH ×2 (07:51→14:54)
[2019-08-06] MEDS: BENZONATATE 100 MG CAPSULE PO SCH ×3 (07:51→20:42)
[2019-08-06] MEDS: FLUTICASONE/SALMETEROL 100/50 (ADVAIR) 14 PUFF/1 INHALER INH SCH ×2 (07:51→20:42)
[2019-08-06] MEDS: OXYCODONE HCL IR 5 MG TAB (IMMEDIATE RELEASE) PO SCH (07:51)
[2019-08-06] MEDS: DICLOFENAC SOD 1% GEL 100 GM TUBE EXT SCH ×2 (07:51→20:40)
[2019-08-06] MEDS: allopurinoL 100 MG TAB PO SCH (07:51)
[2019-08-06] MEDS: MULTIVITAMIN TAB PO SCH (07:52)
[2019-08-06] MEDS: PANTOprazole 40 MG TAB PO SCH (07:52)
[2019-08-06] MEDS: carvediloL 3.125 MG TAB PO SCH ×2 (07:52→20:42)
[2019-08-06] MEDS: ROPINIROLE HCL 1 MG TABLET PO SCH ×4 (07:52→20:43)
[2019-08-06] MEDS: FUROSEMIDE 40 MG TAB PO SCH (07:52)
[2019-08-06] MEDS: TIOTROPIUM BROMIDE 5 PUFF/90 MCG INH INH SCH (07:52)
--- NOTE | 2019-08-06 09:58 | XRay Report ---
SINGLE VIEW CHEST CLINICAL HISTORY: Dyspnea. FINDINGS: An AP, portable, upright chest radiograph is compared to study dated 07/14/2019 and correlate d with chest CT dated 07/30/2019. The examination is degraded by portable technique, apical lordotic p ositioning, and patient rotation. The heart is enlarged noting atherosclerotic calcification of the thoracic aorta. There is mild pulmonary vascular congestion. Trace pleural effusions are suspected. D ependent airspace opacities are similar to previous. No pneumothorax is seen. The skeletal structures are osteopenic. The bony thorax is grossly intact. Advanced degenerative change is seen in the shoul ders and thoracic spine. Fusion hardware is partially visualized in the upper lumbar region. Cholecys tectomy clips are noted in the right upper quadrant. IMPRESSION: 1. Cardiomegaly with mild pulmonary vascular congestion. 2. Suspect trace pleural effusions. 3. Dependent opacities are similar to previous and likely represents scarring/atelectasis. Clinical c orrelation will be required. Electronically signed by: Jayson Joaquin M.D. 08/06/2019 9:57 AM
[2019-08-06] MEDS ORDERED: ALBUT/IPRATROP 3MG/0.5MG NEB 3 ML VIAL NEB SCH (12:00)
[2019-08-06] MEDS: cefTRIAXone SODIUM 2,000 MG in DEXTROSE 5% 50 ML IV SCH (12:27)
--- NOTE | 2019-08-06 12:39 | Hospitalist Progress Note ---
Date of Service August 06, 2019 Assessment & Plan (1) Acute on chronic diastolic CHF (congestive heart failure): - Developed increased SOB over last 24 hours - may be related to acute CHF in setting of weight gain and pulm congestion on chest imaging. - CXR showed mild pulm vascular congestion and trace pleural effusions. - Echo on 07/15 showed EF 55-60%, mild LVH, no wall motion abnormalities. - Weight gain of ~3-4 kg since admission; monitor daily weights and I/Os. - Received home Lasix 40 mg PO this morning; will give additional Lasix 20 mg IV this afternoon -- re-dose diuresis daily based on renal function. - Continue Coreg as prescribed. (2) Chronic respiratory failure with hypoxia: - Requires 4L via NC at baseline -- currently on home requirements. - Diuresis as noted above in setting of possible acute CHF. (3) Pneumonia: - CT chest with bilat consolidations vs. atelectasis; CXR this morning was negative for PNA. - Continue Ceftriaxone and Vancomycin -- will need to convert to PO abx at discharge; MRSA swab was positive. - Duonebs q6hr ATC, Tesslon perles TID, Pulmicort BID. - Has been afebrile, no leukocytosis on labs. (4) History of pulmonary embolism: - Transitioned to Coumadin during last admission (concern she failed NOAC therapy due to high BMI); did not complete imaging to confirm PE but was assumed she had diagnosis due to resp compromise. - Holding Coumadin as noted above in setting of thrombocytopenia; recommend restarting once plt >50K. - Doppler of bilat LE pending to rule out DVT, would be IVC filter placement if pt. 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 - Consulted hematology -- may require up to 2 weeks for thrombocytopenia to fully resolve. - D/c'ed Amiodarone at admission. - Continue to trend CBC daily -- hold anticoagulation until plt >50K. (6) Epistaxis: - Related to thrombocytopenia, now resolved. (7) Anemia: - Hgb ~8-9 during this admission, baseline ~9-10 per previous labs. - Macrocytic anemia -- folate & B12 WNL on labs in May 2019. - Trend CBC daily. (8) Elevated INR: - INR was >10.4 on admission in setting of Coumadin therapy. - Received Vit K, FFP and Platelets in ED; INR now reversed, was 1.7 this morning. - Will continue to hold Coumadin as plt <50K -- will need to resume once platelet count recovers. - Monitor INR levels daily. (9) Venous stasis: - Cellulitis noted on bilat LE -- erythema improved. - Doppler of bilat LE pending to rule out DVT. - Continue Ceftriaxone/Vanc -- convert to PO abx with coverage of cellulitis at discharge. - Eucerin cream for wound care/dry skin. (10) PAF (paroxysmal atrial fibrillation): - Has been in NSR on monitor. - Continue Coreg as prescribed. - D/c'ed Amiodarone due to toxicity. - Holding Warfarin -- see above. (11) COPD (chronic obstructive pulmonary disease): - No evidence of acute exacerbation - does have worsening SOB but is likely related to acute CHF. - Continue home inhalers as prescribed. (12) Chronic low back pain: - Continue home pain regimen with Oxycodone and Fentanyl patch. (13) Stage III chronic kidney disease: - Renally dose all meds. - Cr currently at baseline. (14) Neuropathy: - Continue home Cymbalta and Gabapentin as prescribed. (15) Hypothyroid: - Continue home Synthroid. - TSH is 9.87 -- increased to 88 mcg daily. - Will need repeat TFTs in 4-6 weeks. (16) RLS (restless legs syndrome): - Continue Requip QID as prescribed. (17) DVT prophylaxis: - SCDs; holding Warfarin (see above) Dispo: Discharge to [facility] pending improvement in SOB -- likely over next 48 hours. Supervising Physician Co-Signing Physician Notes Chart reviewed, case discussed with Michelle Milton PAC. Agree with decision making and plan. Care as above. Subjective Pt. has worsening SOB, started last evening and persisted overnight into this morning. SOB is increased with exertion but she is mildly SOB at rest. Denies chest pain, N/V. Redness on bilat LE improving but has +2 LE edema. Complained of dysuria last evening, now improved. Did require straight cath for u/a (was negative) due to chronic urinary incontinence. Has been stable on home oxygen requirements; CXR showed mild pulm edema -- will give additional Lasix today and evaluate for improvement in SOB. Discharge to [facility] once medically stable. Review of Systems Review of Systems: All systems reviewed & are unremarkable except as noted in HPI & below Constitutional: + fatigue and + weakness; no fever, no chills and no anorexia Respiratory: + dyspnea and + dyspnea on exertion; no cough and no wheezing Cardiovascular: + edema; no chest pain, no palpitations and no lightheadedness Gastrointestinal: no abdominal pain, no nausea, no constipation and no diarrhea/loose stools Genitourinary: + dysuria and + urinary incontinence; no difficulty urinating and no hematuria Musculoskeletal: no back pain and no joint pain Integumentary: + erythema (Bilat LE/calves ) and + dry skin; no non-healing lesions Physical Exam Physical Exam: General: In mild distress 2/2 SOB. HEENT: NC/AT; PERRLA with EOMI; [place] conjunctiva, MMM. No erythema of posterior pharynx Neck: Supple and nontender Cardiac: RRR Lungs: appears mildly tachypneic; 4L via NC; crackles in bilat lung bases, otherwise clear throughout. Abdomen: Bowel normoactive X 4; Nontender to palpation Extremities: Warm. +2 bilat LE edema -- erythema noted on bilat calves is improving. Neuro: No focal weakness Skin: see above. Results & Data Vital Signs (Past 12 Hours) Vital Signs Temp Pulse Pulse Pulse Resp BP Pulse Ox 08/06/19 11:34 36.4 C L 61 22 115/80 96 08/06/19 08:25 67 08/06/19 07:16 55 L 18 98 08/06/19 07:12 36.9 C 57 L 22 143/45 H 97 08/06/19 04:13 37.0 C 61 21 125/62 97 08/06/19 01:27 59 L 20 96 Laboratory Results 08/06/19 08/06/19 08/06/19 Range/Units 06:45 06:45 06:45 WBC 8.02 (4.8-10.8) K/uL RBC 2.57 L (4.2-5.4) M/uL Hgb 8.8 L (12.0-16.0) g/dL Hct 27.7 L (37-47) % MCV 107.8 H (80-100) fL MCH 34.2 H (25-34) pg MCHC 31.8 L (32-36) g/dL RDW Std Deviation 71.8 H (36.4-46.3) fL RDW Coeff of Marta 18.2 H (11.5-14.5) % Plt Count 24 L* (130-400) K/uL Immature Gran % (Auto) 2.5 % Neut % (Auto) 48.9 % Lymph % (Auto) 31.5 % [place] % (Auto) 15.5 % Eos % (Auto) 1.4 % Baso % (Auto) 0.2 % Immature Gran # (Auto) 0.20 H (0.00-0.02) K/uL Neut # (Auto) 3.92 (1.4-6.5) K/uL Lymph # (Auto) 2.53 (1.2-3.4) K/uL [place] # (Auto) 1.24 H (0.11-0.59) K/uL Eos # (Auto) 0.11 (0-0.5) K/uL Baso # (Auto) 0.02 (0-0.2) K/uL Platelet Estimate SIGNIFIC DECREASED (Normal) PT 16.7 H (9.0-12.0) Seconds INR 1.7 H (0.9-1.1) Sodium 141 (136-145) mmol/L Potassium 4.0 (3.5-5.1) mmol/L Chloride 103 (98-107) mmol/L Carbon Dioxide 32 (21-32) mmol/L Anion Gap 6.0 (3-11) BUN 29 H (7-18) mg/dl Creatinine 1.04 (0.6-1.2) mg/dl Est Cr Clr Drug Dosing 52.2 ml/min Est GFR ( Amer) 55.9 Est GFR (Non-Af Amer) 48.3 BUN/Creatinine Ratio 28.2 H (10-20) Glucose 92 (70-99) mg/dl Calcium 9.2 (8.5-10.1) mg/dl Urine Color Urine Appearance (Clear) Urine pH (4.5-7.5) Ur Specific Waves (1.000-1.030) Urine Protein (Negative) Urine Glucose (UA) (Negative) Urine Ketones (Negative) Urine Blood (Negative) Urine Nitrite (Negative) Urine Bilirubin (Negative) Urine Urobilinogen (Negative) Ur Leukocyte Esterase (Negative) 08/05/19 Range/Units 19:49 WBC (4.8-10.8) K/uL RBC (4.2-5.4) M/uL Hgb (12.0-16.0) g/dL Hct (37-47) % MCV (80-100) fL MCH (25-34) pg MCHC (32-36) g/dL RDW Std Deviation (36.4-46.3) fL RDW Coeff of Marta (11.5-14.5) % Plt Count (130-400) K/uL Immature Gran % (Auto) % Neut % (Auto) % Lymph % (Auto) % [place] % (Auto) % Eos % (Auto) % Baso % (Auto) % Immature Gran # (Auto) (0.00-0.02) K/uL Neut # (Auto) (1.4-6.5) K/uL Lymph # (Auto) (1.2-3.4) K/uL [place] # (Auto) (0.11-0.59) K/uL Eos # (Auto) (0-0.5) K/uL Baso # (Auto) (0-0.2) K/uL Platelet Estimate (Normal) PT (9.0-12.0) Seconds INR (0.9-1.1) Sodium (136-145) mmol/L Potassium (3.5-5.1) mmol/L Chloride (98-107) mmol/L Carbon Dioxide (21-32) mmol/L Anion Gap (3-11) BUN (7-18) mg/dl Creatinine (0.6-1.2) mg/dl Est Cr Clr Drug Dosing ml/min Est GFR ( Amer) Est GFR (Non-Af Amer) BUN/Creatinine Ratio (10-20) Glucose (70-99) mg/dl Calcium (8.5-10.1) mg/dl Urine Color Yellow Urine Appearance Clear (Clear) Urine pH 7.5 (4.5-7.5) Ur Specific Waves 1.013 (1.000-1.030) Urine Protein Negative (Negative) Urine Glucose (UA) Negative (Negative) Urine Ketones Negative (Negative) Urine Blood Negative (Negative) Urine Nitrite Negative (Negative) Urine Bilirubin Negative (Negative) Urine Urobilinogen Negative (Negative) Ur Leukocyte Esterase Negative (Negative) PG Care Time/CCT Total # of Minutes Spent Total Time Spent with Patient: Total time spent is greater than 50% in coordination of care (as documented) at patient's floor/unit and/or counseling patient: (1) Chronic low back pain Back pain laterality: unspecified Sciatica presence: unspecified whether sciatica present Qualified Code(s): M54.5 - Low back pain; G89.29 - Other chronic pain (2) Anemia Anemia type: unspecified type Qualified Code(s): D64.9 - Anemia, unspecified (3) Pneumonia Laterality: unspecified laterality Lung location: unspecified part of lung Pneumonia type: due to unspecified organism Qualified Code(s): J18.9 - Pneu monia, unspecified organism
[2019-08-06] MEDS ORDERED: FUROSEMIDE 20 MG in SYRINGE 0 ML IV ONE (13:00)
[2019-08-06] MEDS: ALBUT/IPRATROP 3MG/0.5MG NEB 3 ML VIAL NEB SCH ×2 (13:27→19:41)
[2019-08-06] MEDS ORDERED: VANCOMYCIN TROUGH ONE (13:30)
--- NOTE | 2019-08-06 20:07 | Pharmacy Report ---
Pharmacy Abx Dose Short Note - Date of Service August 06, 2019 - Assessment & Plan Laboratory Tests 08/06/19 14:00 Vancomycin Trough 23.1 Assessment 88 year old F receiving Vancomycin 1750mg IV q18h for treatment of PNA and cellulitis of bilateral LE. Day #4 of antimicrobial therapy. MRSA swab is + Plan Vancomycin * Trough level of 23.1 mcg/mL is supratherapeutic * Due to elevated BMI, patient is accumulating * Change to 1750 mg IV every 24 hours * Goal trough level for PNA +MRSA/cellulitis: 15 to 20 mcg/mL Pharmacy will continue to follow and will adjust dose/frequency as necessary. Thank you.
[2019-08-06] MEDS: ACETAMINOPHEN 500 MG TAB PO SCH (20:41)
[2019-08-06] MEDS: GABAPENTIN 600 MG TAB PO SCH (20:42)
[2019-08-06] MEDS: MONTELUKAST SODIUM 10 MG TABLET PO SCH (20:43)
[2019-08-06] MEDS: POLYETHYLENE (MIRALAX) 17 GM PACK PO SCH (20:44)
[2019-08-06] MEDS: DULOXETINE HCL 30 MG CAP PO SCH (20:45)
[2019-08-07] MEDS: RESTASIS - ORDER AWAITING ACTION SCH ×2 (00:43→08:00)
[2019-08-07] MEDS: CHECK FENTANYL PATCH PLACEMENT SCH ×8 (01:21→23:51)
[2019-08-07] MEDS: OXYCODONE HCL IR 5 MG TAB (IMMEDIATE RELEASE) PO PRN (05:09)
[2019-08-07] MEDS: LEVOTHYROXINE SODIUM 88 MCG TABLET PO SCH (05:10)
[2019-08-07 05:56] LABS: INR 1.4 (0.9-1.1); Prothrombin Time 14.4 Seconds (9.0-12.0)
[2019-08-07 06:18] LABS: Basophils # (auto) 0.03 K/uL (0-0.2); Basophils % (auto) 0.4 %; Eosinophils # (auto) 0.11 K/uL (0-0.5); Eosinophils % (auto) 1.4 %; Hematocrit (blood only) 26.5 % (37-47); Hemoglobin 8.4 g/dL (12.0-16.0); Immature Granulocytes # (auto) 0.22 K/uL (0.00-0.02); Immature Granulocytes % (auto) 2.8 %; Lymphocytes % (auto) 29.8 %; Mean Corpuscular Hemoglobin 34.1 pg (25-34); Mean Corpuscular Hgb Conc 31.7 g/dL (32-36); Mean Corpuscular Volume 107.7 fL (80-100); Monocytes # (auto) 1.58 K/uL (0.11-0.59); Monocytes % (auto) 20.4 %; Neutrophils # (auto) 3.49 K/uL (1.4-6.5); Neutrophils % (auto) 45.2 %; Platelet Count 34 K/uL (130-400); Platelet Estimate Decreased (Normal); RBC Morphology Unremarkable; RDW Coefficient of Variation 18.6 % (11.5-14.5); RDW Standard Deviation 72.8 fL (36.4-46.3); Red Blood Count 2.46 M/uL (4.2-5.4); White Blood Count 7.73 K/uL (4.8-10.8)
[2019-08-07 06:19] LABS: BUN Creatinine Ratio 27.8 (10-20); Calcium 8.8 mg/dl (8.5-10.1); Creatinine Clr Calc Pharmacy 51.2 ml/min; Est GFR (African American) 54.7; Est GFR (Non-African American) 47.2; Potassium 4.1 mmol/L (3.5-5.1)
[2019-08-07] MEDS: EUCERIN CR 120 GM JAR EXT SCH ×2 (06:33→21:23)
[2019-08-07] MEDS: BUDESONIDE 0.5 MG/2 ML VIAL (PULMICORT) NEB SCH ×2 (07:09→19:31)
[2019-08-07] MEDS: ALBUT/IPRATROP 3MG/0.5MG NEB 3 ML VIAL NEB SCH ×3 (07:09→19:31)
--- NOTE | 2019-08-07 08:36 | Ultrasound Report ---
BILATERAL LOWER EXTREMITY VENOUS DOPPLER CLINICAL HISTORY: Bilateral leg swelling with right calf pain. COMPARISON STUDY: Bilateral lower extremity venous Doppler July 15, 2019. TECHNIQUE: Sonography of the deep venous system of the bilateral lower extremities was performed. Co mpression and augmentation were evaluated. FINDINGS: The bilateral common femoral, superficial femoral and popliteal veins were compressible. A ugmentation was normal. Flow was shown within the deep calf vessels. Bilateral lower extremity edema was noted. IMPRESSION: No evidence of deep venous thrombus within the bilateral lower extremities. Electronically signed by: Shailesh Luu M.D. 08/07/2019 8:35 AM
[2019-08-07] MEDS: allopurinoL 100 MG TAB PO SCH (08:59)
[2019-08-07] MEDS: PANTOprazole 40 MG TAB PO SCH (08:59)
[2019-08-07] MEDS: FLUTICASONE/SALMETEROL 100/50 (ADVAIR) 14 PUFF/1 INHALER INH SCH ×2 (09:00→21:19)
[2019-08-07] MEDS: MULTIVITAMIN TAB PO SCH (09:00)
[2019-08-07] MEDS: ROPINIROLE HCL 1 MG TABLET PO SCH ×4 (09:00→21:23)
[2019-08-07] MEDS: carvediloL 3.125 MG TAB PO SCH ×2 (09:00→21:21)
[2019-08-07] MEDS: GABAPENTIN 100 MG CAP PO SCH ×2 (09:01→18:20)
[2019-08-07] MEDS: BENZONATATE 100 MG CAPSULE PO SCH (09:01)
[2019-08-07] MEDS: TIOTROPIUM BROMIDE 5 PUFF/90 MCG INH INH SCH (09:01)
[2019-08-07] MEDS: DICLOFENAC SOD 1% GEL 100 GM TUBE EXT SCH ×2 (09:02→21:23)
[2019-08-07] MEDS: OXYCODONE HCL IR 5 MG TAB (IMMEDIATE RELEASE) PO SCH (09:04)
[2019-08-07] MEDS ORDERED: FUROSEMIDE 40 MG in SYRINGE 0 ML IV ONE (09:10)
[2019-08-07] MEDS ORDERED: VANCOMYCIN HCL 1,750 MG in SODIUM CHLORIDE 0.9% 500 ML IV SCH ×2 (10:00→14:00)
[2019-08-07] MEDS: ALBUTEROL HFA 8 GM INHALER INH PRN (10:26)
[2019-08-07] MEDS ORDERED: COUGH DROP (SUGAR FREE) LOZ 24 LOZ/1 BOX BUCCAL ONE (10:32)
[2019-08-07] MEDS ORDERED: ARTIFICIAL TEARS OP PRN (10:50)
[2019-08-07] MEDS: GUAIFENESIN/DEXTROM SYRUP 100MG/10MG 5ML UDC PO PRN ×2 (11:28→21:20)
--- NOTE | 2019-08-07 12:08 | Hospitalist Progress Note ---
Date of Service August 07, 2019 Assessment & Plan (1) Acute on chronic diastolic CHF (congestive heart failure): - Developed increased SOB over last 48 hours - likely related to acute CHF in setting of weight gain and pulm congestion on CXR. - CXR on 08/06 showed mild pulm vascular congestion and trace pleural effusions. - Echo on 07/15 showed EF 55-60%, mild LVH, no wall motion abnormalities. - Monitor daily weights; weight decreased by ~3 kg following IV diuresis. Cannot document I/Os (chronic incontinence) - Received IV Lasix on 08/06 and 08/07; can likely resume home Lasix 40 mg PO on 08/08. - Continue Coreg as prescribed. - Has had some improvement in SOB since yesterday but does not feel like breathing has returned to her baseline yet; continue to monitor as inpt over next 24 hours. (2) Chronic respiratory failure with hypoxia: - Requires 4L via NC at baseline -- currently on home requirements. - Diuresis as noted above in setting of possible acute CHF. (3) Pneumonia: - CT chest with bilat consolidations vs. atelectasis; CXR on 08/06 was negative for PNA. - Convert Ceftriaxone and Vancomycin to Doxycycline PO for 3 day course. - Duonebs q6hr ATC, Pulmicort BID. - Robitussin DM q6hr prn cough. (4) History of pulmonary embolism: - Transitioned to Coumadin during last admission (concern she failed NOAC therapy due to high BMI); did not complete imaging to confirm PE but was assumed she had diagnosis due to resp compromise. - Holding Coumadin as noted above in setting of thrombocytopenia; recommend restarting once plt >50K. 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 - Peripheral smear showed severe thrombocytopenia, macrocytic anemia and dysplasia of PMN leukocytes. - Consulted hematology -- may require up to 2 weeks for thrombocytopenia to fully resolve. - D/c'ed Amiodarone at admission. - Continue to trend CBC daily -- hold anticoagulation until plt >50K. (6) Epistaxis: - Related to thrombocytopenia, now resolved. (7) Anemia: - Hgb ~8-9 during this admission, baseline ~9-10 per previous labs. - Macrocytic anemia -- folate & B12 WNL on labs in May 2019. - Trend CBC daily, transfuse <7. (8) Elevated INR: - INR was >10.4 on admission in setting of Coumadin therapy. - Received Vit K, FFP and Platelets in ED; INR now reversed, was 1.4 on AM labs. - Will continue to hold Coumadin as plt <50K -- will need to resume once platelet count recovers. - Monitor INR levels daily. (9) Venous stasis: - Cellulitis noted on bilat LE -- erythema improved. - Doppler of bilat LE negative for DVT. - Convert Ceftriaxone/Vanc to Doxycycline PO for 3 day course. - Eucerin cream for wound care/dry skin. (10) PAF (paroxysmal atrial fibrillation): - In NSR on monitor. - Continue Coreg as prescribed. - D/c'ed Amiodarone due to toxicity. - Holding Warfarin -- see above. (11) COPD (chronic obstructive pulmonary disease): - No evidence of acute exacerbation - has increased SOB but is likely related to acute CHF. - Continue home inhalers as prescribed. (12) Chronic low back pain: - Continue home pain regimen with Oxycodone and Fentanyl patch. (13) Stage III chronic kidney disease: - Renally dose all meds. - Cr currently at baseline. (14) Neuropathy: - Continue home Cymbalta and Gabapentin as prescribed. (15) Hypothyroid: - Continue home Synthroid. - TSH is 9.87 -- increased to 88 mcg daily. - Will need repeat TFTs in 4-6 weeks. (16) RLS (restless legs syndrome): - Continue Requip QID as prescribed. (17) DVT prophylaxis: - SCDs; holding Warfarin (see above) Dispo: Discharge to [facility] pending improvement in SOB -- likely on 08/08/19. Supervising Physician Co-Signing Physician Notes I personally examined the patient and verified all rene points of history and exam, discussed case, and agree with decision making with Isaias JACKSON Cough, ongoing, feels like she cannot bring stuff up. No significant shortness of breath. Notes when she does bring something up it is yellow Vitals noted, pleasant but fatigued no distress. Lungs show faint rhonchi may be left worse than right, no wheezing good air entry good effort no accessory muscle use, she actually has more of an upper airway rhonchorous sound more audible without the stethoscope than when listening to her lungs. Cough/purulent sputumprobably residual from her resolving pneumonia. She is not showing signs of Sirs/sepsis, and it does appear that her pneumonia is improving. She is likely in the midst of a catarrhal phase and because of her overall weakness is just hard for her to bring mucus up. Continue current antibiotics, escalate nebulizers, encouraged flutter valve. Discussed with patient and nursing staff that unfortunately given the situation there is not likely to be successful with a cough suppressant, and less we suppressed her consciousness so much that she "forgot that she needed to cough" which obviously would be far more harmful than beneficial. Continue current care otherwise. Subjective Pt. reports SOB is improved but is not back to baseline yet. She is on stable home O2 requirements but has increased SOB with movement. LE edema improved; doppler was negative. Erythema is likely at baseline, is still present but unchanged. No open wounds noted on legs. Plan to monitor over next 24 hours, likely return to [facility] on 08/08/19. Pt. lost IV access -- cannot obtain another IV site at this time. Review of Systems Review of Systems: All systems reviewed & are unremarkable except as noted in HPI & below Constitutional: + fatigue and + weakness; no fever, no chills and no anorexia Respiratory: + cough, + dyspnea and + dyspnea on exertion; no wheezing Cardiovascular: + edema; no chest pain, no palpitations and no lightheadedness Gastrointestinal: no abdominal pain, no nausea and no constipation Genitourinary: + urinary incontinence; no dysuria, no difficulty urinating and no hematuria Musculoskeletal: + swelling; no back pain and no joint pain Integumentary: + erythema (Bilat LE ) and + dry skin; no rash, no non-healing lesions and no sores Physical Exam Physical Exam: General: No acute distress, does appear mildly SOB during conversation. HEENT: NC/AT; PERRLA with EOMI; [place] conjunctiva, MMM. No erythema of posterior pharynx Neck: Supple and nontender Cardiac: RRR Lungs: mild tachypnea; 3L via NC; mild crackles in bilat lung bases. Abdomen: Bowel normoactive X 4; Nontender to palpation Extremities: Warm. +1 bilat LE edema -- erythema noted on bilat calves is stable. Neuro: No focal weakness Skin: see above. Results & Data Vital Signs (Past 12 Hours) Vital Signs Temp Pulse Pulse Pulse Resp BP Pulse Ox 08/07/19 11:35 36.8 C 87 24 131/73 92 08/07/19 08:03 88 08/07/19 07:10 63 18 98 08/07/19 06:50 36.8 C 64 24 127/84 94 08/07/19 03:03 36.8 C 62 15 124/56 L 96 Laboratory Results 08/07/19 08/07/19 08/07/19 Range/Units 04:43 04:43 04:43 WBC 7.73 (4.8-10.8) K/uL RBC 2.46 L (4.2-5.4) M/uL Hgb 8.4 L (12.0-16.0) g/dL Hct 26.5 L (37-47) % MCV 107.7 H (80-100) fL MCH 34.1 H (25-34) pg MCHC 31.7 L (32-36) g/dL RDW Std Deviation 72.8 H (36.4-46.3) fL RDW Coeff of Marta 18.6 H (11.5-14.5) % Plt Count 34 L (130-400) K/uL Immature Gran % (Auto) 2.8 % Neut % (Auto) 45.2 % Lymph % (Auto) 29.8 % [place] % (Auto) 20.4 % Eos % (Auto) 1.4 % Baso % (Auto) 0.4 % Immature Gran # (Auto) 0.22 H (0.00-0.02) K/uL Neut # (Auto) 3.49 (1.4-6.5) K/uL Lymph # (Auto) 2.30 (1.2-3.4) K/uL [place] # (Auto) 1.58 H (0.11-0.59) K/uL Eos # (Auto) 0.11 (0-0.5) K/uL Baso # (Auto) 0.03 (0-0.2) K/uL Platelet Estimate Decreased L (Normal) RBC Morphology Unremarkable PT 14.4 H (9.0-12.0) Seconds INR 1.4 H (0.9-1.1) Sodium 140 (136-145) mmol/L Potassium 4.1 (3.5-5.1) mmol/L Chloride 102 (98-107) mmol/L Carbon Dioxide 36 H (21-32) mmol/L Anion Gap 2.0 L (3-11) BUN 29 H (7-18) mg/dl Creatinine 1.06 (0.6-1.2) mg/dl Est Cr Clr Drug Dosing 51.2 ml/min Est GFR ( Amer) 54.7 Est GFR (Non-Af Amer) 47.2 BUN/Creatinine Ratio 27.8 H (10-20) Glucose 94 (70-99) mg/dl Calcium 8.8 (8.5-10.1) mg/dl Vancomycin Trough (See Comment) mcg/ml 08/06/19 Range/Units 14:00 WBC (4.8-10.8) K/uL RBC (4.2-5.4) M/uL Hgb (12.0-16.0) g/dL Hct (37-47) % MCV (80-100) fL MCH (25-34) pg MCHC (32-36) g/dL RDW Std Deviation (36.4-46.3) fL RDW Coeff of Marta (11.5-14.5) % Plt Count (130-400) K/uL Immature Gran % (Auto) % Neut % (Auto) % Lymph % (Auto) % [place] % (Auto) % Eos % (Auto) % Baso % (Auto) % Immature Gran # (Auto) (0.00-0.02) K/uL Neut # (Auto) (1.4-6.5) K/uL Lymph # (Auto) (1.2-3.4) K/uL [place] # (Auto) (0.11-0.59) K/uL Eos # (Auto) (0-0.5) K/uL Baso # (Auto) (0-0.2) K/uL Platelet Estimate (Normal) RBC Morphology PT (9.0-12.0) Seconds INR (0.9-1.1) Sodium (136-145) mmol/L Potassium (3.5-5.1) mmol/L Chloride (98-107) mmol/L Carbon Dioxide (21-32) mmol/L Anion Gap (3-11) BUN (7-18) mg/dl Creatinine (0.6-1.2) mg/dl Est Cr Clr Drug Dosing ml/min Est GFR ( Amer) Est GFR (Non-Af Amer) BUN/Creatinine Ratio (10-20) Glucose (70-99) mg/dl Calcium (8.5-10.1) mg/dl Vancomycin Trough 23.1 (See Comment) mcg/ml PG Care Time/CCT Total # of Minutes Spent Total Time Spent with Patient: Total time spent is greater than 50% in coordination of care (as documented) at patient's floor/unit and/or counseling patient: (1) Chronic low back pain Back pain laterality: unspecified Sciatica presence: unspecified whether sciatica present Qualified Code(s): M54.5 - Low back pain; G89.29 - Other chronic pain (2) Anemia Anemia type: unspecified type Qualified Code(s): D64.9 - Anemia, unspecified (3) Pneumonia Laterality: unspecified laterality Lung location: unspecified part of lung Pneumonia type: due to unspecified organism Qualified Code(s): J18.9 - Pneumonia, unspecified organism
[2019-08-07] MEDS ORDERED: CODEINE SULFATE 30 MG TAB PO ONE (15:00)
[2019-08-07] MEDS ORDERED: ALBUT/IPRATROP 3MG/0.5MG NEB 3 ML VIAL NEB SCH (16:45)
[2019-08-07] MEDS: GABAPENTIN 600 MG TAB PO SCH (21:23)
[2019-08-07] MEDS: DOXYCYCLINE HYCLATE 100 MG CAP PO SCH (21:23)
[2019-08-07] MEDS: POLYETHYLENE (MIRALAX) 17 GM PACK PO SCH (21:23)
[2019-08-07] MEDS: MONTELUKAST SODIUM 10 MG TABLET PO SCH (21:23)
[2019-08-07] MEDS: ACETAMINOPHEN 500 MG TAB PO SCH (21:23)
[2019-08-07] MEDS: DULOXETINE HCL 30 MG CAP PO SCH (21:23)
[2019-08-08] MEDS ORDERED: ALBUT/IPRATROP 3MG/0.5MG NEB 3 ML VIAL NEB PRN (03:09)
[2019-08-08] MEDS: GUAIFENESIN/DEXTROM SYRUP 100MG/10MG 5ML UDC PO PRN ×2 (06:32→12:50)
[2019-08-08] MEDS: LEVOTHYROXINE SODIUM 88 MCG TABLET PO SCH (06:32)
[2019-08-08] MEDS: BUDESONIDE 0.5 MG/2 ML VIAL (PULMICORT) NEB SCH ×2 (07:30→19:49)
[2019-08-08] MEDS: ALBUT/IPRATROP 3MG/0.5MG NEB 3 ML VIAL NEB SCH ×4 (07:30→19:49)
[2019-08-08 07:39] LABS: Hypogranular Neutrophils 2+
[2019-08-08 07:50] LABS: INR 1.3 (0.9-1.1)
[2019-08-08 08:00] LABS: Hematocrit (blood only) 28.1 % (37-47); Mean Corpuscular Hemoglobin 34.6 pg (25-34); Mean Corpuscular Volume 108.1 fL (80-100); RDW Coefficient of Variation 18.5 % (11.5-14.5); RDW Standard Deviation 73.1 fL (36.4-46.3); White Blood Count 9.39 K/uL (4.8-10.8)
[2019-08-08 08:05] LABS: Platelet Count 30 K/uL (130-400); Platelet Estimate Decreased (Normal)
[2019-08-08 08:13] LABS: BUN Creatinine Ratio 29.4 (10-20); Calcium 9.2 mg/dl (8.5-10.1); Creatinine Clr Calc Pharmacy 49.6 ml/min; Est GFR (African American) 53.5; Est GFR (Non-African American) 46.1
[2019-08-08] MEDS: FLUTICASONE/SALMETEROL 100/50 (ADVAIR) 14 PUFF/1 INHALER INH SCH ×2 (08:19→21:20)
[2019-08-08] MEDS: GABAPENTIN 100 MG CAP PO SCH ×2 (08:19→16:26)
[2019-08-08] MEDS: MULTIVITAMIN TAB PO SCH (08:20)
[2019-08-08] MEDS: PANTOprazole 40 MG TAB PO SCH (08:20)
[2019-08-08] MEDS: ROPINIROLE HCL 1 MG TABLET PO SCH ×4 (08:20→21:24)
[2019-08-08] MEDS: FUROSEMIDE 40 MG TAB PO SCH (08:20)
[2019-08-08] MEDS: carvediloL 3.125 MG TAB PO SCH ×2 (08:20→21:24)
[2019-08-08] MEDS: OXYCODONE HCL IR 5 MG TAB (IMMEDIATE RELEASE) PO SCH (08:20)
[2019-08-08] MEDS: DICLOFENAC SOD 1% GEL 100 GM TUBE EXT SCH ×2 (08:21→21:24)
[2019-08-08] MEDS: DOXYCYCLINE HYCLATE 100 MG CAP PO SCH ×2 (08:21→21:26)
[2019-08-08] MEDS: TIOTROPIUM BROMIDE 5 PUFF/90 MCG INH INH SCH (08:21)
[2019-08-08] MEDS: allopurinoL 100 MG TAB PO SCH (08:22)
[2019-08-08] MEDS: CHECK FENTANYL PATCH PLACEMENT SCH ×4 (08:23→16:28)
[2019-08-08] MEDS: EUCERIN CR 120 GM JAR EXT SCH ×2 (08:24→21:47)
--- NOTE | 2019-08-08 12:02 | Hospitalist Progress Note ---
Date of Service August 08, 2019 Assessment & Plan (1) Acute on chronic diastolic CHF (congestive heart failure): - Developed increased SOB over last 72 hours - likely related to acute CHF in setting of weight gain & pulm congestion on CXR. - CXR on 08/06 showed mild pulm vascular congestion and trace pleural effusions. - Echo on 07/15 showed EF 55-60%, mild LVH, no wall motion abnormalities. - Monitor daily weights; weight decreased ~3 kg with additional IV diuresis. Cannot document I/Os (chronic incontinence) - Received IV Lasix on 08/06 and 08/07; will give Lasix 40 mg PO BID today (does not have IV access) - Continue Coreg as prescribed. - Had some improvement in SOB but breathing has not returned to her baseline; continue to monitor over next day. (2) Chronic respiratory failure with hypoxia: - Requires 4L via NC at baseline -- on home requirements. - Diuresis as noted above in setting of possible acute CHF. (3) Pneumonia: - CT chest with bilat consolidations vs. atelectasis; CXR on 08/06 was negative for PNA. - Converted Ceftriaxone and Vancomycin to Doxycycline PO (Day 2 of 3) - Duonebs q6hr ATC, Pulmicort BID. - Robitussin DM q6hr prn cough. (4) History of pulmonary embolism: - Transitioned to Coumadin during last admission (concern she failed NOAC therapy due to high BMI); did not complete imaging to confirm PE but was assumed she had diagnosis due to resp compromise. - Hold Coumadin as noted above in setting of thrombocytopenia; will restart once plt >50K. 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 - Peripheral smear showed severe thrombocytopenia, macrocytic anemia and dysplasia of PMN leukocytes. - Consulted hematology -- may require up to 2 weeks for thrombocytopenia to fully resolve. - D/c'ed Amiodarone at admission. - Continue to trend CBC daily -- hold anticoagulation until plt >50K. (6) Epistaxis: - Related to thrombocytopenia, resolved. (7) Anemia: - Hgb ~8-9 during this admission, baseline ~9-10 per previous labs. - Macrocytic anemia -- folate & B12 WNL on labs in May 2019. - Trend CBC daily; has not required transfusion support. (8) Elevated INR: - INR was >10.4 on admission in setting of Coumadin therapy. - Received Vit K, FFP and Platelets in ED; INR now reversed, was 1.3 on morning labs. - Will continue to hold Coumadin as plt <50K -- resume once platelet count recovers. - Monitor INR levels daily. (9) Venous stasis: - Cellulitis noted on bilat LE -- erythema is at baseline. - Doppler of bilat LE negative for DVT. - Converted Ceftriaxone/Vanc to Doxycycline PO for 3 day course. - Eucerin cream for wound care/dry skin. (10) PAF (paroxysmal atrial fibrillation): - In NSR on monitor. - Continue Coreg as prescribed. - D/c'ed Amiodarone due to toxicity. - Holding Warfarin -- see above. (11) COPD (chronic obstructive pulmonary disease): - No evidence of acute exacerbation - increased SOB but is likely related to acute CHF. - Continue home inhalers as prescribed. (12) Chronic low back pain: - Continue home pain regimen with Oxycodone and Fentanyl patch. (13) Stage III chronic kidney disease: - Renally dose all meds. - Cr currently at baseline. (14) Neuropathy: - Continue home Cymbalta and Gabapentin as prescribed. (15) Hypothyroid: - Continue home Synthroid. - TSH is 9.87 -- increased to 88 mcg daily. - Will need repeat TFTs in 4-6 weeks. (16) RLS (restless legs syndrome): - Continue Requip QID as prescribed. (17) DVT prophylaxis: - SCDs; holding Warfarin (see above) Dispo: Discharge to [facility] pending improvement in SOB. Supervising Physician Co-Signing Physician Notes Chart reviewed, case discussed with Michelle Milton PAC. Agree with decision making and plan. Care as above. Subjective Pt. has an acute cough -- has moderate sputum production, yellow. Shortness of breath improved but not back to baseline yet. Stable on home O2 requirements. LE edema and redness improving. Review of Systems Review of Systems: All systems reviewed & are unremarkable except as noted in HPI & below Constitutional: no fever, no chills, no fatigue, no weakness and no anorexia Respiratory: + cough, + dyspnea, + dyspnea on exertion and + sputum production; no change in sputum and no wheezing Cardiovascular: + edema; no chest pain and no palpitations Gastrointestinal: no abdominal pain, no nausea and no constipation Genitourinary: no difficulty urinating Musculoskeletal: + swelling; no back pain and no joint pain Integumentary: + erythema and + dry skin; no sores Physical Exam Physical Exam: General: No acute distress HEENT: NC/AT; PERRLA with EOMI; [place] conjunctiva, MMM. No erythema of posterior pharynx Neck: Supple and nontender Cardiac: RRR Lungs: 3L via NC; scattered wheezing noted throughout Abdomen: Bowel normoactive X 4; Nontender to palpation Extremities: Warm. +1 bilat LE edema, mild baseline erythema -- appears chronic. Neuro: No focal weakness Skin: see above. Results & Data Vital Signs (Past 12 Hours) Vital Signs Temp Pulse Pulse Pulse Resp BP Pulse Ox 08/08/19 11:12 36.7 C 72 20 127/69 96 08/08/19 11:09 66 18 97 08/08/19 07:35 80 18 93 08/08/19 07:14 36.6 C 74 18 104/65 98 08/08/19 03:47 68 20 95 08/08/19 03:13 36.5 C 73 22 108/70 94 08/08/19 00:46 76 18 97 Laboratory Results 08/08/19 08/08/19 08/08/19 Range/Units 07:02 07:02 07:02 WBC 9.39 (4.8-10.8) K/uL RBC 2.60 L (4.2-5.4) M/uL Hgb 9.0 L (12.0-16.0) g/dL Hct 28.1 L (37-47) % MCV 108.1 H (80-100) fL MCH 34.6 H (25-34) pg MCHC 32.0 (32-36) g/dL RDW Std Deviation 73.1 H (36.4-46.3) fL RDW Coeff of Marta 18.5 H (11.5-14.5) % Plt Count 30 L (130-400) K/uL Hypogranular Neuts Platelet Estimate Decreased L (Normal) PT 13.0 H (9.0-12.0) Seconds INR 1.3 H (0.9-1.1) Sodium 142 (136-145) mmol/L Potassium 4.0 (3.5-5.1) mmol/L Chloride 103 (98-107) mmol/L Carbon Dioxide 34 H (21-32) mmol/L Anion Gap 5.0 (3-11) BUN 32 H (7-18) mg/dl Creatinine 1.08 (0.6-1.2) mg/dl Est Cr Clr Drug Dosing 49.6 ml/min Est GFR ( Amer) 53.5 Est GFR (Non-Af Amer) 46.1 BUN/Creatinine Ratio 29.4 H (10-20) Glucose 101 H (70-99) mg/dl Calcium 9.2 (8.5-10.1) mg/dl 08/07/19 Range/Units 04:43 WBC (4.8-10.8) K/uL RBC (4.2-5.4) M/uL Hgb (12.0-16.0) g/dL Hct (37-47) % MCV (80-100) fL MCH (25-34) pg MCHC (32-36) g/dL RDW Std Deviation (36.4-46.3) fL RDW Coeff of Marta (11.5-14.5) % Plt Count (130-400) K/uL Hypogranular Neuts 2+ Platelet Estimate (Normal) PT (9.0-12.0) Seconds INR (0.9-1.1) Sodium (136-145) mmol/L Potassium (3.5-5.1) mmol/L Chloride (98-107) mmol/L Carbon Dioxide (21-32) mmol/L Anion Gap (3-11) BUN (7-18) mg/dl Creatinine (0.6-1.2) mg/dl Est Cr Clr Drug Dosing ml/min Est GFR ( Amer) Est GFR (Non-Af Amer) BUN/Creatinine Ratio (10-20) Glucose (70-99) mg/dl Calcium (8.5-10.1) mg/dl PG Care Time/CCT Total # of Minutes Spent Total Time Spent with Patient: Total time spent is greater than 50% in coordination of care (as documented) at patient's floor/unit and/or counseling patient: (1) Chronic low back pain Back pain laterality: unspecified Sciatica presence: unspecified whether sciatica present Qualified Code(s): M54.5 - Low back pain; G89.29 - Other chronic pain (2) Anemia Anemia type: unspecified type Qualified Code(s): D64.9 - Anemia, unspecified (3) Pneumonia Laterality: unspecified laterality Lung location: unspecified part of lung Pneumonia type: due to unspecified organism Qualified Code(s): J18.9 - Pneumonia, unspecified organism
[2019-08-08] MEDS ORDERED: FUROSEMIDE 40 MG TAB PO ONE (13:00)
[2019-08-08] MEDS: DULOXETINE HCL 30 MG CAP PO SCH (21:23)
[2019-08-08] MEDS: ALBUTEROL HFA 8 GM INHALER INH PRN (21:25)
[2019-08-08] MEDS: GABAPENTIN 600 MG TAB PO SCH (21:26)
[2019-08-08] MEDS: ACETAMINOPHEN 500 MG TAB PO SCH (21:34)
[2019-08-08] MEDS: POLYETHYLENE (MIRALAX) 17 GM PACK PO SCH (21:43)
[2019-08-08] MEDS: MONTELUKAST SODIUM 10 MG TABLET PO SCH (22:24)
[2019-08-09] MEDS: CHECK FENTANYL PATCH PLACEMENT SCH ×6 (00:04→16:36)
[2019-08-09] MEDS: ACETAMINOPHEN 325 MG TAB PO PRN ×2 (04:08→10:41)
[2019-08-09] MEDS: LEVOTHYROXINE SODIUM 88 MCG TABLET PO SCH (05:32)
[2019-08-09] MEDS: GUAIFENESIN/DEXTROM SYRUP 100MG/10MG 5ML UDC PO PRN ×2 (05:32→22:19)
[2019-08-09] MEDS: ALBUT/IPRATROP 3MG/0.5MG NEB 3 ML VIAL NEB SCH ×4 (07:08→20:07)
[2019-08-09] MEDS: BUDESONIDE 0.5 MG/2 ML VIAL (PULMICORT) NEB SCH (07:08)
[2019-08-09 08:05] LABS: INR 1.2 (0.9-1.1); Prothrombin Time 11.9 Seconds (9.0-12.0)
[2019-08-09 08:24] LABS: BUN Creatinine Ratio 28.1 (10-20); Calcium 9.3 mg/dl (8.5-10.1); Creatinine Clr Calc Pharmacy 51.1 ml/min; Est GFR (African American) 54.7; Est GFR (Non-African American) 47.2; Potassium 3.9 mmol/L (3.5-5.1)
[2019-08-09 08:29] LABS: Hematocrit (blood only) 28.6 % (37-47); Hemoglobin 9.1 g/dL (12.0-16.0); Mean Corpuscular Hemoglobin 34.3 pg (25-34); Mean Corpuscular Hgb Conc 31.8 g/dL (32-36); Mean Corpuscular Volume 107.9 fL (80-100); Mean Platelet Volume 12.9 fL (7.4-10.4); Platelet Count 49 K/uL (130-400); Platelet Estimate Decreased (Normal); RDW Coefficient of Variation 18.4 % (11.5-14.5); RDW Standard Deviation 72.5 fL (36.4-46.3); Red Blood Count 2.65 M/uL (4.2-5.4); White Blood Count 8.78 K/uL (4.8-10.8)
[2019-08-09] MEDS: fentaNYL 12 MCG/HR TDSY TD SCH (09:01)
[2019-08-09] MEDS: OXYCODONE HCL IR 5 MG TAB (IMMEDIATE RELEASE) PO SCH (09:01)
[2019-08-09] MEDS: fentaNYL 25 MCG/HR TDSY TD SCH (09:01)
[2019-08-09] MEDS: MULTIVITAMIN TAB PO SCH (09:01)
[2019-08-09] MEDS: PANTOprazole 40 MG TAB PO SCH (09:02)
[2019-08-09] MEDS: FUROSEMIDE 40 MG TAB PO SCH (09:02)
[2019-08-09] MEDS: EUCERIN CR 120 GM JAR EXT SCH ×2 (09:02→21:01)
[2019-08-09] MEDS: ROPINIROLE HCL 1 MG TABLET PO SCH ×4 (09:02→21:01)
[2019-08-09] MEDS: allopurinoL 100 MG TAB PO SCH (09:02)
[2019-08-09] MEDS: GABAPENTIN 100 MG CAP PO SCH ×2 (09:03→16:37)
[2019-08-09] MEDS: DOXYCYCLINE HYCLATE 100 MG CAP PO SCH (09:03)
[2019-08-09] MEDS: DICLOFENAC SOD 1% GEL 100 GM TUBE EXT SCH ×2 (09:03→21:03)
[2019-08-09] MEDS: FLUTICASONE/SALMETEROL 100/50 (ADVAIR) 14 PUFF/1 INHALER INH SCH (09:04)
[2019-08-09] MEDS: carvediloL 3.125 MG TAB PO SCH ×2 (09:04→21:00)
[2019-08-09] MEDS: TIOTROPIUM BROMIDE 5 PUFF/90 MCG INH INH SCH (09:08)
--- NOTE | 2019-08-09 12:44 | Hospitalist Progress Note ---
Date of Service August 09, 2019 Assessment & Plan (1) Acute on chronic diastolic CHF (congestive heart failure): - Developed increased SOB over last 3-4 days - likely related to acute CHF based on CXR findings and weight gain. - CXR on 08/06 showed mild pulm vascular congestion and trace pleural effusions. - Echo on 07/15 showed EF 55-60%, mild LVH, no wall motion abnormalities. - Monitor daily weights; weight has not decreased significantly with diuresis. Cannot document I/Os (chronic incontinence) - Received IV Lasix on 08/06 and 08/07; received Lasix 80 mg PO on 08/08 (does not have IV access); will give Lasix total of 160 mg PO today. - Continue Coreg as prescribed. - Had some improvement in SOB but continues to have persistent cough; CT of chest was concerning for ?interstitial lung disease, will consult pulm for evaluation. (2) Chronic respiratory failure with hypoxia: - Requires 4L via NC at baseline - currently on home requirements but has SOB/cough. - Diuresis as noted above for acute CHF. (3) Pneumonia: - CT chest with bilat consolidations vs. atelectasis; CXR on 08/06 was negative for PNA. - Completed Ceftriaxone x 7 days and Vanc x 4 days; Doxycycline PO (Day 3 of 3) - Duonebs q6hr ATC, Pulmicort BID. - Robitussin DM q6hr prn cough. - Consulting pulm for persistent cough and SOB. (4) History of pulmonary embolism: - Transitioned to Coumadin during last admission (concern she failed NOAC therapy due to high BMI); did not complete imaging to confirm PE but was assumed she had diagnosis due to resp compromise. - Hold Coumadin as noted above in setting of thrombocytopenia; restart once plt >50K. - Doppler of bilat LE negative for DVT. 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 - Peripheral smear showed severe thrombocytopenia, macrocytic anemia and dysplasia of PMN leukocytes. - Consulted hematology -- may require up to 2 weeks for thrombocytopenia to fully resolve. - D/c'ed Amiodarone at admission. - Continue to trend CBC daily -- hold anticoagulation until plt >50K. (6) Epistaxis: - Related to thrombocytopenia, resolved. (7) Anemia: - Hgb ~8-9 during this admission, baseline ~9-10 per previous labs. - Macrocytic anemia -- folate & B12 WNL on labs in May 2019. - Trend CBC daily. (8) Elevated INR: - INR was >10.4 on admission in setting of Coumadin therapy. - Received Vit K, FFP and Platelets in ED; INR now reversed, was 1.2 on morning labs. - Continue to hold Coumadin as plt <50K -- resume once platelet count recovers. - Monitor INR levels daily. (9) Venous stasis: - Cellulitis noted on bilat LE -- erythema is at baseline. - Doppler of bilat LE negative for DVT. - Will complete course of abx this evening. - Eucerin cream for wound care/dry skin. (10) PAF (paroxysmal atrial fibrillation): - In NSR during physical exam. - Continue Coreg as prescribed. - D/c'ed Amiodarone due to toxicity. - Holding Warfarin -- see above. (11) COPD (chronic obstructive pulmonary disease): - No evidence of acute exacerbation - increased SOB is likely related to acute CHF. - Continue home inhalers as prescribed. (12) Chronic low back pain: - Continue home pain regimen with Oxycodone and Fentanyl patch. (13) Stage III chronic kidney disease: - Renally dose all meds. - Cr currently at baseline. (14) Neuropathy: - Continue home Cymbalta and Gabapentin as prescribed. (15) Hypothyroid: - Continue home Synthroid. - TSH is 9.87 -- increased to 88 mcg daily. - Will need repeat TFTs in 4-6 weeks. (16) RLS (restless legs syndrome): - Continue Requip QID as prescribed. (17) DVT prophylaxis: - SCDs; holding Warfarin (see above) Dispo: Discharge to [facility] pending pulmonary consult and improvement in SOB/cough. Subjective Pt. reports SOB with coughing episodes and sputum production -- cough has improved but is not resolved yet. Discussed discharge planning with Dr. Perez from [facility] -- will consult pulm for evaluation and continue diuresis prior to return to [facility] Plt count is trending up, resume Coumadin once >50K. Review of Systems Review of Systems: All systems reviewed & are unremarkable except as noted in HPI & below Constitutional: no fever, no chills, no fatigue, no weakness and no anorexia Respiratory: + cough, + dyspnea, + dyspnea on exertion and + sputum production; no change in sputum and no wheezing Cardiovascular: no chest pain, no palpitations and no edema Gastrointestinal: no abdominal pain, no nausea and no constipation Genitourinary: + urinary incontinence; no difficulty urinating Musculoskeletal: + swelling; no back pain and no joint pain Integumentary: + erythema and + dry skin; no non-healing lesions, no skin ulcer and no sores Physical Exam Physical Exam: General: No acute distress HEENT: NC/AT; PERRLA with EOMI; [place] conjunctiva, MMM. No erythema of posterior pharynx Neck: Supple and nontender Cardiac: RRR Lungs: 3L via NC; bibasilar crackles, otherwise clear throughout Abdomen: Bowel normoactive X 4; Nontender to palpation Extremities: Warm. +1 bilat LE edema, mild baseline erythema -- likely chronic. Neuro: No focal weakness Skin: see above. Results & Data Vital Signs (Past 12 Hours) Vital Signs Temp Pulse Pulse Pulse Resp BP Pulse Ox 08/09/19 11:15 36.5 C 63 24 124/80 98 08/09/19 10:54 66 22 98 08/09/19 07:26 36.4 C L 64 20 137/83 97 08/09/19 07:09 71 20 96 08/09/19 01:04 77 14 96 Laboratory Results 08/09/19 08/09/19 08/09/19 Range/Units 07:33 07:33 07:33 WBC 8.78 (4.8-10.8) K/uL RBC 2.65 L (4.2-5.4) M/uL Hgb 9.1 L (12.0-16.0) g/dL Hct 28.6 L (37-47) % MCV 107.9 H (80-100) fL MCH 34.3 H (25-34) pg MCHC 31.8 L (32-36) g/dL RDW Std Deviation 72.5 H (36.4-46.3) fL RDW Coeff of Marta 18.4 H (11.5-14.5) % Plt Count 49 L D (130-400) K/uL MPV 12.9 H (7.4-10.4) fL Platelet Estimate Decreased L (Normal) PT 11.9 (9.0-12.0) Seconds INR 1.2 H (0.9-1.1) Sodium 141 (136-145) mmol/L Potassium 3.9 (3.5-5.1) mmol/L Chloride 104 (98-107) mmol/L Carbon Dioxide 34 H (21-32) mmol/L Anion Gap 3.0 (3-11) BUN 30 H (7-18) mg/dl Creatinine 1.06 (0.6-1.2) mg/dl Est Cr Clr Drug Dosing 51.1 ml/min Est GFR ( Amer) 54.7 Est GFR (Non-Af Amer) 47.2 BUN/Creatinine Ratio 28.1 H (10-20) Glucose 97 (70-99) mg/dl Calcium 9.3 (8.5-10.1) mg/dl PG Care Time/CCT Total # of Minutes Spent Total Time Spent with Patient: Total time spent is greater than 50% in coordination of care (as documented) at patient's floor/unit and/or counseling patient: (1) Chronic low back pain Back pain laterality: unspecified Sciatica presence: unspecified whether sciatica present Qualified Code(s): M54.5 - Low back pain; G89.29 - Other chronic pain (2) Anemia Anemia type: unspecified type Qualified Code(s): D64.9 - Anemia, unspecified (3) Pneumonia Laterality: unspecified laterality Lung location: unspecified part of lung Pneumonia type: due to unspecified organism Qualified Code(s): J18.9 - Pneumonia, unspecified organism
[2019-08-09] MEDS ORDERED: FUROSEMIDE 40 MG TAB PO ONE (13:15)
--- NOTE | 2019-08-09 14:00 | Pulmonary Consultation ---
Date of Consultation August 09, 2019 Assessment & Plan (1) Chronic respiratory failure with hypoxia: (2) Acute on chronic diastolic CHF (congestive heart failure): (3) Stage III chronic kidney disease: (4) Venous stasis: (5) Thrombocytopenia: (6) Epistaxis: (7) Elevated INR: (8) History of pulmonary embolism: (9) Acute on chronic respiratory failure: Respiratory failure complication: hypoxia Qualified Code(s): J96.21 - Acute and chronic respiratory failure with hypoxia (10) Pneumonia: Patient has a complex medical history. Her cough is quite impressive and intractable. I believe she is demonstrating evidence of persistent bibasilar consolidation with chronic diastolic heart failure as well. She is just so weak and is secretions apparently so tenacious that she does not have the ability to clear her lungs and expectorate. I think we will try to maximize her airway clearance with additional maneuvers like a flutter valve, aerosolized bronchodilator, percussion and postural drainage and perhaps nebulizer treatments with 7% normal saline. I would personally be reticent anticoagulate any patient with such significant thrombocytopenia. I suspect patient has myelodysplastic syndrome if not abel leukemia and has a very poor prognosis. We will try conservative measures to try to assist this patient. Make you very much for this consultation. Laterality: unspecified laterality Lung location: unspecified part of lung Pneumonia type: due to unspecified organism Qualified Code(s): J18.9 - Pneumonia, unspecified organism (11) MRSA (methicillin resistant staph aureus) culture positive: (12) Cellulitis of both lower extremities: (13) COPD (chronic obstructive pulmonary disease): (14) UTI (urinary tract infection): Hematuria presence: without hematuria Urinary tract infection type: site unspecified Qualified Code(s): N39.0 - Urinary tract infection, site not specified History of Present Illness Attending Physician: Lukas Huddleston DO 88-year-old white female was admitted to the hospital on 07/30/2019 with a bleeding diathesis consisting of epistaxis. Patient has an extensive and complex medical history. History of DVT and multiple pulmonary emboli, bronchogenic neoplasm, chronic CHF, COPD and possible myelodysplastic syndrome versus leukemia with marked thrombocytopenia. Her platelet count has gone down as low as 13,000. She also was on anticoagulant therapy. She was given platelets in the ER and vitamin K as well as fresh frozen plasma. She was evaluated by Dr. Jones from hematology/oncology on 07/31/2019. Patient is followed as an outpatient by . Myelodysplasia is strongly considered. Patient has declined a bone marrow biopsy and had been admitted earlier in the month with acute on chronic respiratory failure. Etiology was felt to be multifactorial with COPD exacerbation CHF and bronchopneumonia. She also demonstrated an episode of narrow complex tachycardia and responded to amiodarone therapy and was discharged on amiodarone 200 mg p.o. twice daily. She also had urinary tract infection secondary to E. coli and was discharged on ertapenem. She came back this time with significant epistaxis and oral mucosal bleeding. Platelet count was 25,000 and had been in the 160,000 on 07/21/2019. She did not respond to platelet transfusion. Her sputum has been bloody at times. Review of the record from previous admission shows the patient admitted on 07/14/2019 and discharged a week later. 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 He resides at [facility]. On the day of admission she was very short of breath and started on IV Rocephin aerosolized bronchodilator and supplemented with oxygen at 4 L and then 6 L. She was also placed on BiPAP which she is currently using. He felt then and continues to feel that her sputum and secretions are unable to be expectorated and feels like something' is stuck down there.' She denies knowledge of aspiration. Occasion she has post prandial coughing. Review of the admitting notes show that patient was felt to have a component of acute diastolic CHF and bronchopneumonia with chest x-ray suggesting bibasilar consolidation. CTA was not performed though pulmonary emboli were suspected because of worsening renal function. Echocardiogram showed an LVEF of 55 to 60% with no regional wall motion abnormalities. In addition to the amiodarone she has been on Coreg therapy. Currently she does have a history of DVT and 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 and had been on Xarelto was switched to Coumadin therapy. Discharge to [facility] but was readmitted on 07/30/2019 as stated . She states she has had a cough for the past 4 days and has been unable to expectorate any phlegm. Allergies Allergy/AdvReac Type Severity Reaction Status Date / Time enoxaparin Allergy Intermediate RASH, Verified 07/30/19 11:05 PRURITUS Home Medications Home Medications Medication Instructions Recorded Confirmed Type Prilosec OTC 20 mg PO QAM 09/07/18 07/30/19 History Spiriva with HandiHaler 1 cap INHALATION QAM 09/07/18 07/30/19 History allopurinol 100 mg PO QAM 09/07/18 07/30/19 History duloxetine 30 mg PO QPM 09/07/18 07/30/19 History gabapentin 600 mg PO HS 09/07/18 07/30/19 History montelukast [Singulair] 10 mg PO PM 09/07/18 07/30/19 History albuterol sulfate 2.5 mg INH Q6H #90 ml 09/11/18 07/30/19 Rx Restasis MultiDose 1 drp OPHTHALMIC (EYE) BID 11/06/18 07/30/19 History acetaminophen 325 - 650 mg PO Q6H PRN MDD 3G 11/06/18 07/30/19 History albuterol sulfate [Ventolin HFA] 2 puff INHALATION Q4H PRN 11/06/18 07/30/19 History azelastine 2 spray INTRANASAL QAM 11/06/18 07/30/19 History fluticasone propionate [Flonase 2 spray INTRANASAL DAILY 11/06/18 07/30/19 History Allergy Relief] multivitamin 1 tab PO QAM 11/06/18 07/30/19 History acetaminophen [Tylenol Extra 1,000 mg PO HS 02/02/19 07/30/19 History Strength] diclofenac sodium [Voltaren] 2 g TOPICAL BID 02/02/19 07/30/19 History sodium chloride [Talmage Nasal] 1 spray INTRANASAL UD PRN 02/02/19 07/30/19 History benzonatate [Tessalon Perles] 100 mg PO TID 07/14/19 07/30/19 History budesonide [Pulmicort] 0.5 mg NEB Q12H 07/14/19 07/30/19 History gabapentin 200 mg PO BID 07/14/19 07/30/19 History oxycodone 5 mg PO QAM PRN 07/14/19 07/30/19 History polyethylene glycol 3350 [Miralax] 17 g PO PM 07/14/19 07/30/19 History amiodarone 200 mg PO BIDM 30 Days #60 tab 07/21/19 07/30/19 Rx carvedilol 3.125 mg PO BID 30 Days #60 tab 07/21/19 07/30/19 Rx furosemide 40 mg PO QAM 30 Days #30 tab 07/21/19 07/30/19 Rx ropinirole 1 mg PO QID 30 Days #120 tab 07/21/19 07/30/19 Rx warfarin [Coumadin] 5 mg PO DAILY #30 tab 07/21/19 07/30/19 Rx bisacodyl 10 mg NH DAILY PRN 07/30/19 07/30/19 History fluticasone propion-salmeterol 1 puff INHALATION Q12H 07/30/19 07/30/19 History [Advair Diskus] levothyroxine 75 mcg PO DAILY 07/30/19 07/30/19 History sodium phosphates [Fleet Enema] 118 ml NH DAILY PRN 07/30/19 07/30/19 History dextromethorphan-guaifenesin 5 ml PO Q6H PRN 3 Days #5 ml 08/09/19 Rx fentanyl 1 patch TRANSDERMAL Q72H 30 Days 08/09/19 Rx #10 ea ipratropium-albuterol 3 ml NEB Q4H 1 Days #1 ml 08/09/19 Rx levothyroxine [Synthroid] 88 mcg PO DAILYBB 1 Days #1 tab 08/09/19 Rx oxycodone 5 mg PO DAILY 30 Days #30 tab 08/09/19 Rx oxycodone 10 mg PO HS PRN 30 Days #30 tab 08/09/19 Rx Patient History Medical History Chronic back pain RLS (restless legs syndrome) Chronic diastolic CHF (congestive heart failure) (Chronic) COPD exacerbation (Acute) Hypoxia (Acute) Hypertension (Chronic) Asthma (Chronic) CKD (chronic kidney disease), stage III (Chronic) DCIS (ductal carcinoma in situ) (~2012) Deep vein blood clot of right lower extremity History of pulmonary embolism Lung cancer (~2010) Spasmodic dysphonia Surgical History H/O mastectomy History of back surgery Hx of appendectomy Hx of hernia repair Hx of hysterectomy Hx of resection of liver Hx of total knee replacement Family History Other Family history non-contributory Social History Preferred Language: Georgian Communication Ability: Effective Nurses Supervisor Required: No Beliefs That Will Affect Care: None Current Living Situation: Long-Term Current Living Situation Comment: [facility] Other Information That Helps Us Care for You: No Feels Safe at Home: Yes Safety Concerns: Feels Safe At This Time Smoking Status: Never smoker Second Hand Exposure: No ; Hx Alcohol Use: No Hx Substance Use: No Review of Systems Constitutional: no problem reported Eyes: no problem reported Ear, Nose, Mouth, Throat: no problem reported Respiratory: no problem reported Cardiovascular: no problem reported Gastrointestinal: no problem reported Genitourinary: no problem reported Musculoskeletal: no problem reported Integumentary: no problem reported Neurologic: no problem reported Psychiatric: no problem reported Endocrine: no problem reported Hematologic / Lymphatic: no problem reported Allergy / Immunological: no problem reported Physical Exam Constitutional: well developed and well nourished; no acute distress Eyes: PERRL, conjunctivae normal, anicteric sclerae ENMT: external ear and nose normal, oropharynx normal Neck: trachea midline, no thyromegaly Respiratory: normal respiratory effort and + prolonged expiratory phase Auscultation: lungs clear to auscultation bilaterally, + diminished lung sounds (Diminished breath sounds bilaterally/poor inspiratory effort with paroxysms of coughing triggered) and + wheezes (Some wheezes at the right base ) Cardiovascular: RRR, no murmur, no edema Palpation: normal PMI; no thrill Gastrointestinal (Abdomen): normal bowel sounds, soft, nontender, no hepatosplenomegaly Musculoskeletal: no cyanosis or clubbing, extremities motor strength 5/5 Gait: normal gait Skin: no rashes, warm and dry Neurologic: PERRL, EOMI, accommodation nl, no face palsy, no dysarthria Psychiatric: A+Ox3, euthymic affect Lymphatic: no cervical or axillary lymphadenopathy Results & Data Vital Signs (Past 12 Hours) Vital Signs Temp Pulse Pulse Resp BP Pulse Ox 08/09/19 11:15 36.5 C 63 24 124/80 98 08/09/19 10:54 66 22 98 08/09/19 07:26 36.4 C L 64 20 137/83 97 08/09/19 07:09 71 20 96 Laboratory Results Abnormal Labs 07/30/19 07/30/19 07/30/19 10:43 10:43 10:43 RBC 2.89 L Hgb 9.8 L Hct 30.7 L MCV 106.2 H MCH MCHC 31.9 L RDW Std Deviation 67.8 H RDW Coeff of Marta 17.7 H Plt Count 13 L* MPV Immature Gran # (Auto) 0.06 H Early # (Auto) 1.05 H Platelet Estimate PT > 90.0 H INR > 10.4 H* Fibrinogen D-Dimer Carbon Dioxide 38 H Anion Gap BUN 27 H BUN/Creatinine Ratio 25.6 H Glucose 128 H AST 13 L Total Protein 6.1 L Albumin 3.0 L Nasal Screen MRSA (PCR) Crossmatch 07/30/19 07/30/19 07/30/19 11:38 11:43 18:22 RBC Hgb 8.7 L Hct 27.8 L MCV MCH MCHC RDW Std Deviation RDW Coeff of Marta Plt Count MPV Immature Gran # (Auto) Early # (Auto) Platelet Estimate PT INR Fibrinogen 414 H D-Dimer 710 H* Carbon Dioxide Anion Gap BUN BUN/Creatinine Ratio Glucose AST Total Protein Albumin Nasal Screen MRSA (PCR) Crossmatch See Detail 07/30/19 07/30/19 07/31/19 22:57 23:50 05:43 RBC 2.50 L Hgb 9.0 L 8.3 L Hct 28.5 L 26.6 L MCV 106.4 H MCH MCHC 31.2 L RDW Std Deviation 68.2 H RDW Coeff of Marta 17.6 H Plt Count 14 L* MPV Immature Gran # (Auto) 0.07 H Early # (Auto) 1.43 H Platelet Estimate PT INR Fibrinogen D-Dimer Carbon Dioxide Anion Gap BUN BUN/Creatinine Ratio Glucose AST Total Protein Albumin Nasal Screen MRSA (PCR) Positive A Crossmatch 07/31/19 07/31/19 07/31/19 05:43 07:23 07:34 RBC Hgb Hct MCV MCH MCHC RDW Std Deviation RDW Coeff of Marta Plt Count MPV Immature Gran # (Auto) Early # (Auto) Platelet Estimate PT 13.3 H INR 1.3 H Fibrinogen D-Dimer 860 H* Carbon Dioxide 36 H Anion Gap BUN 26 H BUN/Creatinine Ratio 24.9 H Glucose 104 H AST Total Protein Albumin Nasal Screen MRSA (PCR) Crossmatch 08/01/19 08/01/19 08/02/19 07:30 07:30 06:14 RBC 2.53 L 2.49 L Hgb 8.7 L 8.4 L Hct 27.0 L 26.6 L MCV 106.7 H 106.8 H MCH 34.4 H MCHC 31.6 L RDW Std Deviation 69.7 H 67.9 H RDW Coeff of Marta 17.8 H 17.7 H Plt Count 9 L* 31 L D MPV Immature Gran # (Auto) 0.05 H 0.05 H Early # (Auto) 1.16 H 1.24 H Platelet Estimate PT INR Fibrinogen D-Dimer Carbon Dioxide 35 H Anion Gap BUN 28 H BUN/Creatinine Ratio 26.4 H Glucose AST Total Protein Albumin Nasal Screen MRSA (PCR) Crossmatch 08/02/19 08/02/19 08/03/19 06:14 06:14 06:24 RBC 2.47 L Hgb 8.5 L Hct 26.4 L MCV 106.9 H MCH 34.4 H MCHC RDW Std Deviation 68.8 H RDW Coeff of Marta 17.9 H Plt Count 24 L* MPV Immature Gran # (Auto) 0.08 H Early # (Auto) 1.22 H Platelet Estimate PT 18.8 H INR 1.9 H Fibrinogen D-Dimer Carbon Dioxide 36 H Anion Gap BUN 30 H BUN/Creatinine Ratio 28.3 H Glucose AST Total Protein Albumin Nasal Screen MRSA (PCR) Crossmatch 08/04/19 08/04/19 08/05/19 06:31 06:31 01:23 RBC 2.46 L 2.46 L Hgb 8.5 L 8.5 L Hct 26.6 L 26.3 L MCV 108.1 H 106.9 H MCH 34.6 H 34.6 H MCHC RDW Std Deviation 70.6 H 71.0 H RDW Coeff of Marta 18.1 H 18.2 H Plt Count 29 L* 24 L* MPV Immature Gran # (Auto) 0.12 H 0.12 H Early # (Auto) 1.47 H 1.24 H Platelet Estimate Decreased L PT INR Fibrinogen D-Dimer Carbon Dioxide 36 H Anion Gap 1.0 L BUN 31 H BUN/Creatinine Ratio 30.7 H Glucose AST Total Protein Albumin Nasal Screen MRSA (PCR) Crossmatch 08/05/19 08/05/19 08/06/19 01:23 01:23 06:45 RBC 2.57 L Hgb 8.8 L Hct 27.7 L MCV 107.8 H MCH 34.2 H MCHC 31.8 L RDW Std Deviation 71.8 H RDW Coeff of Marta 18.2 H Plt Count 24 L* MPV Immature Gran # (Auto) 0.20 H Early # (Auto) 1.24 H Platelet Estimate PT 18.8 H INR 1.9 H Fibrinogen D-Dimer Carbon Dioxide 35 H Anion Gap BUN 29 H BUN/Creatinine Ratio 27.5 H Glucose 128 H AST Total Protein Albumin Nasal Screen MRSA (PCR) Crossmatch 08/06/19 08/06/19 08/07/19 06:45 06:45 04:43 RBC 2.46 L Hgb 8.4 L Hct 26.5 L MCV 107.7 H MCH 34.1 H MCHC 31.7 L RDW Std Deviation 72.8 H RDW Coeff of Marta 18.6 H Plt Count 34 L MPV Immature Gran # (Auto) 0.22 H Early # (Auto) 1.58 H Platelet Estimate Decreased L PT 16.7 H INR 1.7 H Fibrinogen D-Dimer Carbon Dioxide Anion Gap BUN 29 H BUN/Creatinine Ratio 28.2 H Glucose AST Total Protein Albumin Nasal Screen MRSA (PCR) Crossmatch 08/07/19 08/07/19 08/08/19 04:43 04:43 07:02 RBC 2.60 L Hgb 9.0 L Hct 28.1 L MCV 108.1 H MCH 34.6 H MCHC RDW Std Deviation 73.1 H RDW Coeff of Marta 18.5 H Plt Count 30 L MPV Immature Gran # (Auto) Early # (Auto) Platelet Estimate Decreased L PT 14.4 H INR 1.4 H Fibrinogen D-Dimer Carbon Dioxide 36 H Anion Gap 2.0 L BUN 29 H BUN/Creatinine Ratio 27.8 H Glucose AST Total Protein Albumin Nasal Screen MRSA (PCR) Crossmatch 08/08/19 08/08/19 08/09/19 07:02 07:02 07:33 RBC 2.65 L Hgb 9.1 L Hct 28.6 L MCV 107.9 H MCH 34.3 H MCHC 31.8 L RDW Std Deviation 72.5 H RDW Coeff of Marta 18.4 H Plt Count 49 L D MPV 12.9 H Immature Gran # (Auto) Early # (Auto) Platelet Estimate Decreased L PT 13.0 H INR 1.3 H Fibrinogen D-Dimer Carbon Dioxide 34 H Anion Gap BUN 32 H BUN/Creatinine Ratio 29.4 H Glucose 101 H AST Total Protein Albumin Nasal Screen MRSA (PCR) Crossmatch 08/09/19 08/09/19 07:33 07:33 RBC Hgb Hct MCV MCH MCHC RDW Std Deviation RDW Coeff of Amrta Plt Count MPV Immature Gran # (Auto) Early # (Auto) Platelet Estimate PT INR 1.2 H Fibrinogen D-Dimer Carbon Dioxide 34 H Anion Gap BUN 30 H BUN/Creatinine Ratio 28.1 H Glucose AST Total Protein Albumin Nasal Screen MRSA (PCR) Crossmatch Diagnostic Findings Patient: EJ ADAM Date: 07/30/19 MR#: [id number]: [address] [facility] Acct ID:[id number]: [facility] Date: [address] [place] [address] Zip: [place] [address] Age: 88Location: 2E Sex: F Room/Bed: [facility] Att Phy: Marlon Roman MDDiagnosis: SUPRATHERAPEUTIC INR,EPISTAXIS Sariah [facility]: [facility] Fam Phy:Interpreting Phy: Tyshawn Anguiano MD Admit Phy: Marlon Roman MD Ordering Phy: Alexandrea Mendez cc: ~ CT chest wo con CLINICAL HISTORY: Cough. Abnormal breath sounds. COMPARISON STUDY: Chest x-ray dated 07/14/2019, CT scan dated 07/07/2018 CT DOSE: 797.69 mGy.cm TECHNIQUE: CT of the thorax was performed from the thoracic inlet to the lung bases. Images are reviewed in the axial, sagittal, and coronal planes. IV contrast was not administered for this examination. A dose lowering technique was utilized adhering to the principles of ALARA. FINDINGS: Thyroid: Imaged portions of the thyroid gland are normal in appearance. Thoracic aorta: The thoracic aorta is normal in course and caliber, noting standard 3 vessel arch anatomy. Heart: The heart is mildly enlarged. There is no significant pericardial effusion. There are coronary artery calcifications. Lungs and pleural spaces: There are no pleural effusions. There are mild lower lobe bronchiectatic changes. There is progressive bilateral lower lobe atelectasis/consolidation. There is subpleural reticulation most pronounced in the right. Diagnostic considerations include cardiogenic interstitial edema versus interstitial lung disease. Mediastinum: There are borderline enlarged mediastinal lymph nodes, unchanged from the prior study and likely reactive Bonnie: There are calcified hilar lymph nodes consistent with a post inflammatory etiology Axilla: There is no evidence of pathologic axillary lymphadenopathy Upper abdomen: There are calcified hepatic granulomas. There are multiple calcified splenic granulomas. There are also chronic rim type calcifications within the spleen. There is a small hiatal hernia. Skeletal structures: Advanced arthritic changes are present within the shoulders. There are arthritic changes in the spine. There is a mild mid to upper thoracic vertebral body compression deformity which appears chronic IMPRESSION: 1. Progressive bilateral lower lobe atelectasis/consolidation with associated mild bronchiectasis. 2. Mildly prominent mediastinal lymph nodes likely reactive 3. Mild subpleural reticulation. Interstitial lung disease versus cardiogenic interstitial edema Electronically signed by: Tyshawn Anguiano M.D. 07/30/2019 5:56 PM Dictated: 07/30/[id number] Transcribed: 07/30/[id number] Admit Date: 07/30/19 MR#: [id number]: [address] [facility] Acct ID:[id number]: [facility] Date: [address] [place] [address] Zip: [place] [id number] Age: 88Location: 2E Sex: F Room/Bed: [facility] Att Phy: Ivan Marcus D.O.Diagnosis: SUPRATHERAPEUTIC INR,EPISTAXIS Sariah [facility] Date: 08/06/19 Fam Phy:Interpreting Phy: Jayson Joaquin MD Admit Phy: Marlon Roman MD Ordering Phy: Michelle Milton PA-C cc: ~ SINGLE VIEW CHEST CLINICAL HISTORY: Dyspnea. FINDINGS: An AP, portable, upright chest radiograph is compared to study dated 07/14/2019 and correlated with chest CT dated 07/30/2019. The examination is degraded by portable technique, apical lordotic positioning, and patient rotation. The heart is enlarged noting atherosclerotic calcification of the thoracic aorta. There is mild pulmonary vascular congestion. Trace pleural effusions are suspected. Dependent airspace opacities are similar to previous. No pneumothorax is seen. The skeletal structures are osteopenic. The bony thorax is grossly intact. Advanced degenerative change is seen in the shoulders and thoracic spine. Fusion hardware is partially visualized in the upper lumbar region. Cholecystectomy clips are noted in the right upper quadrant. IMPRESSION: 1. Cardiomegaly with mild pulmonary vascular congestion. 2. Suspect trace pleural effusions. 3. Dependent opacities are similar to previous and likely represents scarring/atelectasis. Clinical correlation will be required. PG Care Time/CCT Total # of Minutes Spent Total Time Spent with Patient: Total time spent is greater than 50% in coordination of care (as documented) at patient's floor/unit and/or counseling patient:
[2019-08-09] MEDS: AZITHROMYCIN 500 MG in DEXTROSE 5% 250 ML IV SCH (16:35)
[2019-08-09] MEDS: CEFEPIME 2,000 MG in SYRINGE 7.5 ML IV SCH (16:35)
[2019-08-09] MEDS ORDERED: FUROSEMIDE 40 MG TAB PO SCH (17:00)
[2019-08-09] MEDS: ARFORMOTEROL TART 15MCG/2ML VIAL INH SCH (20:08)
[2019-08-09] MEDS: SODIUM CHLOR 7% 4 ML NEB INH SCH (20:17)
[2019-08-09] MEDS: DULOXETINE HCL 30 MG CAP PO SCH (21:00)
[2019-08-09] MEDS: GABAPENTIN 600 MG TAB PO SCH (21:01)
[2019-08-09] MEDS: MONTELUKAST SODIUM 10 MG TABLET PO SCH (21:02)
[2019-08-09] MEDS: methylPREDNISolone 40 MG in SYRINGE 0 ML IV SCH (21:02)
[2019-08-09] MEDS: POLYETHYLENE (MIRALAX) 17 GM PACK PO SCH (21:05)
[2019-08-09] MEDS: ACETAMINOPHEN 500 MG TAB PO SCH (21:05)
[2019-08-09] MEDS ORDERED: MICONAZOLE NITRATE POWDER 43 GM EXT PRN (22:32)
[2019-08-10] MEDS: CHECK FENTANYL PATCH PLACEMENT SCH ×6 (00:03→15:25)
[2019-08-10] MEDS: CEFEPIME 2,000 MG in SYRINGE 7.5 ML IV SCH ×2 (03:45→17:15)
[2019-08-10] MEDS: LEVOTHYROXINE SODIUM 88 MCG TABLET PO SCH (06:06)
[2019-08-10 06:48] LABS: Hematocrit (blood only) 28.2 % (37-47); Hemoglobin 9.1 g/dL (12.0-16.0); Mean Corpuscular Hemoglobin 34.6 pg (25-34); Mean Corpuscular Hgb Conc 32.3 g/dL (32-36); Mean Corpuscular Volume 107.2 fL (80-100); RDW Coefficient of Variation 18.3 % (11.5-14.5); RDW Standard Deviation 72.8 fL (36.4-46.3); Red Blood Count 2.63 M/uL (4.2-5.4); White Blood Count 5.72 K/uL (4.8-10.8)
[2019-08-10 06:59] LABS: INR 1.1 (0.9-1.1); Prothrombin Time 11.4 Seconds (9.0-12.0)
[2019-08-10 07:22] LABS: BUN Creatinine Ratio 27.4 (10-20); Creatinine Clr Calc Pharmacy 45.8 ml/min; Est GFR (African American) 48.5; Est GFR (Non-African American) 41.9; Potassium 4.4 mmol/L (3.5-5.1)
[2019-08-10 07:31] LABS: Mean Platelet Volume 11.9 fL (7.4-10.4); Platelet Count 71 K/uL (130-400)
[2019-08-10] MEDS: ALBUT/IPRATROP 3MG/0.5MG NEB 3 ML VIAL NEB SCH ×4 (07:36→19:51)
[2019-08-10] MEDS: ARFORMOTEROL TART 15MCG/2ML VIAL INH SCH ×2 (07:36→19:49)
[2019-08-10] MEDS: SODIUM CHLOR 7% 4 ML NEB INH SCH ×2 (07:37→19:51)
[2019-08-10] MEDS ORDERED: FUROSEMIDE 40 MG in SYRINGE 0 ML IV ONE (08:00)
[2019-08-10] MEDS: OXYCODONE HCL IR 5 MG TAB (IMMEDIATE RELEASE) PO SCH (09:49)
[2019-08-10] MEDS: PANTOprazole 40 MG TAB PO SCH (09:50)
[2019-08-10] MEDS: carvediloL 3.125 MG TAB PO SCH ×2 (09:50→21:09)
[2019-08-10] MEDS: MULTIVITAMIN TAB PO SCH (09:50)
[2019-08-10] MEDS: ROPINIROLE HCL 1 MG TABLET PO SCH ×4 (09:50→21:10)
[2019-08-10] MEDS: GABAPENTIN 100 MG CAP PO SCH ×2 (09:50→15:25)
[2019-08-10] MEDS: allopurinoL 100 MG TAB PO SCH (09:50)
[2019-08-10] MEDS: EUCERIN CR 120 GM JAR EXT SCH ×2 (09:51→21:09)
[2019-08-10] MEDS: DICLOFENAC SOD 1% GEL 100 GM TUBE EXT SCH ×2 (09:51→21:10)
[2019-08-10] MEDS: methylPREDNISolone 40 MG in SYRINGE 0 ML IV SCH ×2 (09:53→21:16)
[2019-08-10] MEDS: TIOTROPIUM BROMIDE 5 PUFF/90 MCG INH INH SCH (10:32)
--- NOTE | 2019-08-10 11:23 | Hospitalist Progress Note ---
Date of Service August 10, 2019 Assessment & Plan (1) Acute on chronic diastolic CHF (congestive heart failure): - Developed increased SOB during this admission - likely related to acute CHF vs. ongoing pneumonia. - CXR on 08/06 showed mild pulm vascular congestion and trace pleural effusions. - Echo on 07/15 showed EF 55-60%, mild LVH, no wall motion abnormalities. - Monitor daily weights; weight decreased ~2 kg since yesterday following diuresis. Cannot document I/Os (chronic incontinence) - Dose Lasix daily -- received 160 mg PO total yesterday; will give 40 mg IV this morning, possibly additional IV diuretic this afternoon. Monitor renal function closely. - Continue Coreg as prescribed. - Continues to have persistent cough and shortness of breath -- pulmonary was consulted, appreciate input. (2) Pneumonia: - CT chest with bilat consolidations vs. atelectasis; CXR on 08/06 was negative for PNA. - Completed Ceftriaxone x 7 days and Vanc x 4 days then Doxy x 2 days. - Has ongoing cough and SOB -- pulmonary consulted, greatly appreciate input. - Started Cefepime and Azithromycin on 08/09 for empiric coverage of ongoing PNA. - Solu-medrol 40 mg IV BID. - Duonebs q4hWA, NaCl neb BID, Brovana neb BID all scheduled. - Robitussin DM q6hr prn cough. (3) Chronic respiratory failure with hypoxia: - Requires 4L via NC at baseline - currently on home requirements. - Diuresis as noted above for acute CHF. Treatment for PNA as noted below. (4) History of pulmonary embolism: - Transitioned to Coumadin during last admission (concern she failed NOAC therapy due to high BMI); did not complete imaging to confirm PE but was assumed she had diagnosis due to resp compromise. - Hold Coumadin as noted above in setting of thrombocytopenia; consider resuming once plt >100K. - Doppler of bilat LE negative for DVT. 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 - Peripheral smear showed severe thrombocytopenia, macrocytic anemia and dysplasia of PMN leukocytes. - Consulted hematology -- may require up to 2 weeks for thrombocytopenia to fully resolve. - D/c'ed Amiodarone at admission. - Continue to trend CBC daily -- hold anticoagulation until plt >100K. (6) Epistaxis: - Related to thrombocytopenia, resolved. (7) Anemia: - Hgb ~8-9 during this admission, baseline ~9-10 per previous labs. - Macrocytic anemia -- folate & B12 WNL on labs in May 2019. - Trend CBC daily - H/H has been stable. (8) Elevated INR: - INR was >10.4 on admission in setting of Coumadin therapy. - Received Vit K, FFP and Platelets in ED; INR now reversed, was 1.1 on morning labs. - Continue to hold Coumadin as plt <100K -- resume once platelet count recovers. - Monitor INR levels daily. (9) Venous stasis: - Cellulitis noted on bilat LE -- erythema is at baseline. - Doppler of bilat LE negative for DVT. - Completed course of Ceftriaxone, Vanc; currently receiving Cefepime as noted above for PNA. - Eucerin cream for wound care/dry skin. (10) PAF (paroxysmal atrial fibrillation): - In NSR. - Continue Coreg as prescribed. - D/c'ed Amiodarone due to toxicity. - Holding Warfarin -- see above. (11) COPD (chronic obstructive pulmonary disease): - Pulmonary following, on IV abx; also started Solumedrol 40 mg IV BID for possible COPD exacerbation. - Continue home inhalers as prescribed along with scheduled nebs as inpatient. (12) Chronic low back pain: - Continue home pain regimen with Oxycodone and Fentanyl patch. (13) Stage III chronic kidney disease: - Renally dose all meds. - Cr currently at baseline - monitor closely in setting of IV diuresis. (14) Neuropathy: - Continue home Cymbalta and Gabapentin as prescribed. (15) Hypothyroid: - Continue home Synthroid. - TSH is 9.87 -- increased to 88 mcg daily. - Will need repeat TFTs in 4-6 weeks. (16) RLS (restless legs syndrome): - Continue Requip QID as prescribed. (17) DVT prophylaxis: - SCDs; holding Warfarin (see above) Dispo: Discharge to [facility] pending improvement in respiratory issues. Subjective Pt. has ongoing cough and shortness of breath -- some improvement. Pulmonary following, appreciate input. She is coughing up yellow mucous. Increase in restless leg symptoms this morning. Leg edema stable, redness at baseline. Review of Systems Review of Systems: All systems reviewed & are unremarkable except as noted in HPI & below Constitutional: + fatigue and + weakness; no fever, no chills and no anorexia Respiratory: + cough, + dyspnea, + dyspnea on exertion and + sputum production; no change in sputum and no wheezing Cardiovascular: + edema; no chest pain, no palpitations and no lightheadedness Gastrointestinal: no abdominal pain, no nausea and no constipation Genitourinary: no difficulty urinating Musculoskeletal: + swelling; no back pain and no joint pain Integumentary: + erythema and + dry skin; no non-healing lesions, no skin ulcer and no sores Physical Exam Physical Exam: General: No acute distress HEENT: NC/AT; PERRLA with EOMI; [place] conjunctiva, MMM. No erythema of posterior pharynx Neck: Supple and nontender Cardiac: RRR Lungs: 3L via NC; mild scattered wheezing, otherwise clear throughout. Abdomen: Bowel normoactive X 4; Nontender to palpation Extremities: Warm. +1 bilat LE edema, mild baseline erythema -- chronic. Neuro: No focal weakness Skin: see above. Results & Data Vital Signs (Past 12 Hours) Vital Signs Temp Pulse Pulse Resp BP Pulse Ox 08/10/19 07:40 67 20 97 08/10/19 07:20 36.8 C 74 22 144/74 H 92 08/10/19 03:43 37.0 C 82 20 154/92 H 93 08/09/19 23:43 36.8 C 75 18 124/66 94 Laboratory Results 08/10/19 08/10/19 08/10/19 Range/Units 06:42 06:42 06:42 WBC 5.72 (4.8-10.8) K/uL RBC 2.63 L (4.2-5.4) M/uL Hgb 9.1 L (12.0-16.0) g/dL Hct 28.2 L (37-47) % MCV 107.2 H (80-100) fL MCH 34.6 H (25-34) pg MCHC 32.3 (32-36) g/dL RDW Std Deviation 72.8 H (36.4-46.3) fL RDW Coeff of Marta 18.3 H (11.5-14.5) % Plt Count 71 L (130-400) K/uL MPV 11.9 H (7.4-10.4) fL PT 11.4 (9.0-12.0) Seconds INR 1.1 (0.9-1.1) Sodium 138 (136-145) mmol/L Potassium 4.4 (3.5-5.1) mmol/L Chloride 100 (98-107) mmol/L Carbon Dioxide 33 H (21-32) mmol/L Anion Gap 5.0 (3-11) BUN 32 H (7-18) mg/dl Creatinine 1.17 (0.6-1.2) mg/dl Est Cr Clr Drug Dosing 45.8 ml/min Est GFR ( Amer) 48.5 Est GFR (Non-Af Amer) 41.9 BUN/Creatinine Ratio 27.4 H (10-20) Glucose 168 H (70-99) mg/dl Calcium 9.0 (8.5-10.1) mg/dl PG Care Time/CCT Total # of Minutes Spent Total Time Spent with Patient: Total time spent is greater than 50% in coordination of care (as documented) at patient's floor/unit and/or counseling patient: (1) Chronic low back pain Back pain laterality: unspecified Sciatica presence: unspecified whether sciatica present Qualified Code(s): M54.5 - Low back pain; G89.29 - Other chronic pain (2) Anemia Anemia type: unspecified type Qualified Code(s): D64.9 - Anemia, unspecified (3) Pneumonia Laterality: unspecified laterality Lung location: unspecified part of lung Pneumonia type: due to unspecified organism Qualified Code(s): J18.9 - Pneumonia, unspecified organism
--- NOTE | 2019-08-10 11:29 | Pulmonology Progress Note ---
Date of Service August 10, 2019 Assessment & Plan (1) Chronic respiratory failure with hypoxia: (2) Acute on chronic diastolic CHF (congestive heart failure): (3) Stage III chronic kidney disease: (4) Venous stasis: (5) Thrombocytopenia: (6) Anemia: Anemia type: unspecified type Qualified Code(s): D64.9 - Anemia, unspecified (7) Epistaxis: (8) PAF (paroxysmal atrial fibrillation): (9) History of pulmonary embolism: (10) Sepsis associated hypotension: (11) COPD (chronic obstructive pulmonary disease): (12) Lung cancer: (13) Healthcare associated bacterial pneumonia: Very complex past medical history. Patient clearly has demonstrated bibasilar consolidation and believe we are treating a healthcare associated pneumonia. I cannot rule out amiodarone induced lung toxicity which at this point is a diagnosis of exclusion. Nevertheless the amiodarone has been discontinued and she remains on steroid therapy. While it is possible the amiodarone has induced thrombocytopenia suspicion is that patient has myelodysplastic syndrome to explain her pancytopenia. Has a very poor prognosis. In any event would continue to diurese her watching over patient's renal status and will check an x-ray today as well. Subjective 88-year-old white female with complex medical history and I referred to my previous consultative note on 08/09/2019. Patient was seen earlier this morning till remains quite breathless with an intractable cough although the latter appears less violent in nature and she feels it is somewhat improved. She is now expectorating some phlegm that looks purulent. Her weight has decreased approximately 2 kg since yesterday following aggressive diuresis. Has been incontinent. Extra dose of Lasix was given this morning and will be this afternoon with close monitoring of renal function . We started empiric coverage for healthcare associated pneumonia with cefepime and azithromycin intravenously yesterday along with IV Solu-Medrol aerosolized bronchodilator in the form of DuoNeb solution as well as long-acting beta agonist in the form of Brovana solution. In addition 7% normal saline nebulizer treatments were prescribed along with flutter valve and vibration vest. Patient appears to be tolerating all these modalities and stated to me that she thought it might be helping. No hemoptysis noted. Review of Systems Constitutional: no problem reported Eyes: no problem reported Ear, Nose, Mouth, Throat: no problem reported Respiratory: no problem reported Cardiovascular: no problem reported Gastrointestinal: no problem reported Genitourinary: no problem reported Musculoskeletal: no problem reported Integumentary: no problem reported Neurologic: no problem reported Psychiatric: no problem reported Endocrine: no problem reported Hematologic / Lymphatic: no problem reported Allergy / Immunological: no problem reported Physical Exam Constitutional: well developed and well nourished; no acute distress Eyes: PERRL, conjunctivae normal, anicteric sclerae ENMT: external ear and nose normal, oropharynx normal Neck: trachea midline, no thyromegaly Respiratory: normal respiratory effort and + hyperresonance to percussion Auscultation: + diminished lung sounds (Decreased breath sounds at both bases with mild egophony) and + wheezes (Scattered wheezes persist) Cardiovascular: RRR, no murmur, no edema Palpation: normal PMI; no thrill Gastrointestinal (Abdomen): normal bowel sounds, soft, nontender, no hepatosplenomegaly Musculoskeletal: no cyanosis or clubbing, extremities motor strength 5/5 Gait: normal gait Skin: no rashes, warm and dry Neurologic: PERRL, EOMI, accommodation nl, no face palsy, no dysarthria Psychiatric: A+Ox3, euthymic affect Lymphatic: no cervical or axillary lymphadenopathy Results & Data Vital Signs (Past 12 Hours) Vital Signs Temp Pulse Pulse Resp BP Pulse Ox 08/10/19 11:24 36.2 C L 75 22 158/66 H 91 08/10/19 07:40 67 20 97 08/10/19 07:20 36.8 C 74 22 144/74 H 92 08/10/19 03:43 37.0 C 82 20 154/92 H 93 08/09/19 23:43 36.8 C 75 18 124/66 94 Laboratory Results Abnormal Labs 07/30/19 07/30/19 07/30/19 10:43 10:43 10:43 RBC 2.89 L Hgb 9.8 L Hct 30.7 L MCV 106.2 H MCH MCHC 31.9 L RDW Std Deviation 67.8 H RDW Coeff of Marta 17.7 H Plt Count 13 L* MPV Immature Gran # (Auto) 0.06 H Kleberg # (Auto) 1.05 H Platelet Estimate PT > 90.0 H INR > 10.4 H* Fibrinogen D-Dimer Carbon Dioxide 38 H Anion Gap BUN 27 H BUN/Creatinine Ratio 25.6 H Glucose 128 H AST 13 L Total Protein 6.1 L Albumin 3.0 L Nasal Screen MRSA (PCR) Crossmatch 07/30/19 07/30/19 07/30/19 11:38 11:43 18:22 RBC Hgb 8.7 L Hct 27.8 L MCV MCH MCHC RDW Std Deviation RDW Coeff of Marta Plt Count MPV Immature Gran # (Auto) Kleberg # (Auto) Platelet Estimate PT INR Fibrinogen 414 H D-Dimer 710 H* Carbon Dioxide Anion Gap BUN BUN/Creatinine Ratio Glucose AST Total Protein Albumin Nasal Screen MRSA (PCR) Crossmatch See Detail 07/30/19 07/30/19 07/31/19 22:57 23:50 05:43 RBC 2.50 L Hgb 9.0 L 8.3 L Hct 28.5 L 26.6 L MCV 106.4 H MCH MCHC 31.2 L RDW Std Deviation 68.2 H RDW Coeff of Marta 17.6 H Plt Count 14 L* MPV Immature Gran # (Auto) 0.07 H Kleberg # (Auto) 1.43 H Platelet Estimate PT INR Fibrinogen D-Dimer Carbon Dioxide Anion Gap BUN BUN/Creatinine Ratio Glucose AST Total Protein Albumin Nasal Screen MRSA (PCR) Positive A Crossmatch 07/31/19 07/31/19 07/31/19 05:43 07:23 07:34 RBC Hgb Hct MCV MCH MCHC RDW Std Deviation RDW Coeff of Marta Plt Count MPV Immature Gran # (Auto) Kleberg # (Auto) Platelet Estimate PT 13.3 H INR 1.3 H Fibrinogen D-Dimer 860 H* Carbon Dioxide 36 H Anion Gap BUN 26 H BUN/Creatinine Ratio 24.9 H Glucose 104 H AST Total Protein Albumin Nasal Screen MRSA (PCR) Crossmatch 08/01/19 08/01/19 08/02/19 07:30 07:30 06:14 RBC 2.53 L 2.49 L Hgb 8.7 L 8.4 L Hct 27.0 L 26.6 L MCV 106.7 H 106.8 H MCH 34.4 H MCHC 31.6 L RDW Std Deviation 69.7 H 67.9 H RDW Coeff of Marta 17.8 H 17.7 H Plt Count 9 L* 31 L D MPV Immature Gran # (Auto) 0.05 H 0.05 H Kleberg # (Auto) 1.16 H 1.24 H Platelet Estimate PT INR Fibrinogen D-Dimer Carbon Dioxide 35 H Anion Gap BUN 28 H BUN/Creatinine Ratio 26.4 H Glucose AST Total Protein Albumin Nasal Screen MRSA (PCR) Crossmatch 08/02/19 08/02/19 08/03/19 06:14 06:14 06:24 RBC 2.47 L Hgb 8.5 L Hct 26.4 L MCV 106.9 H MCH 34.4 H MCHC RDW Std Deviation 68.8 H RDW Coeff of Marta 17.9 H Plt Count 24 L* MPV Immature Gran # (Auto) 0.08 H Kleberg # (Auto) 1.22 H Platelet Estimate PT 18.8 H INR 1.9 H Fibrinogen D-Dimer Carbon Dioxide 36 H Anion Gap BUN 30 H BUN/Creatinine Ratio 28.3 H Glucose AST Total Protein Albumin Nasal Screen MRSA (PCR) Crossmatch 08/04/19 08/04/19 08/05/19 06:31 06:31 01:23 RBC 2.46 L 2.46 L Hgb 8.5 L 8.5 L Hct 26.6 L 26.3 L MCV 108.1 H 106.9 H MCH 34.6 H 34.6 H MCHC RDW Std Deviation 70.6 H 71.0 H RDW Coeff of Marta 18.1 H 18.2 H Plt Count 29 L* 24 L* MPV Immature Gran # (Auto) 0.12 H 0.12 H Kleberg # (Auto) 1.47 H 1.24 H Platelet Estimate Decreased L PT INR Fibrinogen D-Dimer Carbon Dioxide 36 H Anion Gap 1.0 L BUN 31 H BUN/Creatinine Ratio 30.7 H Glucose AST Total Protein Albumin Nasal Screen MRSA (PCR) Crossmatch 08/05/19 08/05/19 08/06/19 01:23 01:23 06:45 RBC 2.57 L Hgb 8.8 L Hct 27.7 L MCV 107.8 H MCH 34.2 H MCHC 31.8 L RDW Std Deviation 71.8 H RDW Coeff of Marta 18.2 H Plt Count 24 L* MPV Immature Gran # (Auto) 0.20 H Kleberg # (Auto) 1.24 H Platelet Estimate PT 18.8 H INR 1.9 H Fibrinogen D-Dimer Carbon Dioxide 35 H Anion Gap BUN 29 H BUN/Creatinine Ratio 27.5 H Glucose 128 H AST Total Protein Albumin Nasal Screen MRSA (PCR) Crossmatch 08/06/19 08/06/19 08/07/19 06:45 06:45 04:43 RBC 2.46 L Hgb 8.4 L Hct 26.5 L MCV 107.7 H MCH 34.1 H MCHC 31.7 L RDW Std Deviation 72.8 H RDW Coeff of Marta 18.6 H Plt Count 34 L MPV Immature Gran # (Auto) 0.22 H Kleberg # (Auto) 1.58 H Platelet Estimate Decreased L PT 16.7 H INR 1.7 H Fibrinogen D-Dimer Carbon Dioxide Anion Gap BUN 29 H BUN/Creatinine Ratio 28.2 H Glucose AST Total Protein Albumin Nasal Screen MRSA (PCR) Crossmatch 08/07/19 08/07/19 08/08/19 04:43 04:43 07:02 RBC 2.60 L Hgb 9.0 L Hct 28.1 L MCV 108.1 H MCH 34.6 H MCHC RDW Std Deviation 73.1 H RDW Coeff of Marta 18.5 H Plt Count 30 L MPV Immature Gran # (Auto) Kleberg # (Auto) Platelet Estimate Decreased L PT 14.4 H INR 1.4 H Fibrinogen D-Dimer Carbon Dioxide 36 H Anion Gap 2.0 L BUN 29 H BUN/Creatinine Ratio 27.8 H Glucose AST Total Protein Albumin Nasal Screen MRSA (PCR) Crossmatch 08/08/19 08/08/19 08/09/19 07:02 07:02 07:33 RBC 2.65 L Hgb 9.1 L Hct 28.6 L MCV 107.9 H MCH 34.3 H MCHC 31.8 L RDW Std Deviation 72.5 H RDW Coeff of Marta 18.4 H Plt Count 49 L D MPV 12.9 H Immature Gran # (Auto) Kleberg # (Auto) Platelet Estimate Decreased L PT 13.0 H INR 1.3 H Fibrinogen D-Dimer Carbon Dioxide 34 H Anion Gap BUN 32 H BUN/Creatinine Ratio 29.4 H Glucose 101 H AST Total Protein Albumin Nasal Screen MRSA (PCR) Crossmatch 08/09/19 08/09/19 08/10/19 07:33 07:33 06:42 RBC 2.63 L Hgb 9.1 L Hct 28.2 L MCV 107.2 H MCH 34.6 H MCHC RDW Std Deviation 72.8 H RDW Coeff of Marta 18.3 H Plt Count 71 L MPV 11.9 H Immature Gran # (Auto) Kleberg # (Auto) Platelet Estimate PT INR 1.2 H Fibrinogen D-Dimer Carbon Dioxide 34 H Anion Gap BUN 30 H BUN/Creatinine Ratio 28.1 H Glucose AST Total Protein Albumin Nasal Screen MRSA (PCR) Crossmatch 08/10/19 06:42 RBC Hgb Hct MCV MCH MCHC RDW Std Deviation RDW Coeff of Marta Plt Count MPV Immature Gran # (Auto) Kleberg # (Auto) Platelet Estimate PT INR Fibrinogen D-Dimer Carbon Dioxide 33 H Anion Gap BUN 32 H BUN/Creatinine Ratio 27.4 H Glucose 168 H AST Total Protein Albumin Nasal Screen MRSA (PCR) Crossmatch Medications Administered Current Inpatient Medications Acetaminophen (Tylenol) 1,000 mg PO HS [facility] Stop: 08/29/19 20:59 Last Admin: 08/09/19 21:05 Dose: 1,000 mg Documented by: Acetaminophen (Tylenol) 325 - 650 mg PO Q6H PRN PRN Reason: Fever/pain Stop: 08/29/19 18:06 Last Admin: 08/09/19 10:41 Dose: 650 mg Documented by: Albuterol (Ventolin Hfa) 2 puffs INH Q4H PRN PRN Reason: COPD Stop: 08/29/19 18:06 Last Admin: 08/08/19 21:25 Dose: 2 puffs Documented by: Albuterol (Duoneb) 3 ml NEB Q4RWA ALIN Stop: 09/06/19 19:59 Last Admin: 08/10/19 11:30 Dose: 3 ml Documented by: Albuterol (Duoneb) 3 ml NEB Q4H PRN PRN Reason: Dyspnea Stop: 09/07/19 03:08 Last Admin: 08/08/19 03:47 Dose: 3 ml Documented by: Allopurinol (Zyloprim) 100 mg PO QAM [facility] Stop: 08/30/19 08:59 Last Admin: 08/10/19 09:50 Dose: 100 mg Documented by: Arformoterol Tartrate (Brovana Neb) 15 mcg INH BIDR ALIN Stop: 09/08/19 18:59 Last Admin: 08/10/19 07:36 Dose: 15 mcg Documented by: Artificial Tears (Artificial Tears) 1 drops OP PRN PRN PRN Reason: DRY EYES Stop: 09/06/19 10:49 Bisacodyl (Dulcolax) 10 mg LA DAILY PRN PRN Reason: Constipation Stop: 08/29/19 18:06 Carvedilol (Coreg) 3.125 mg PO BID [facility] Stop: 08/29/19 20:59 Last Admin: 08/10/19 09:50 Dose: 3.125 mg Documented by: Diclofenac Sodium (Voltaren 1% Top) 2 appln EXT BID [facility] Stop: 08/29/19 20:59 Last Admin: 08/10/19 09:51 Dose: 2 appln Documented by: Duloxetine HCl (Cymbalta) 30 mg PO QPM [facility] Stop: 08/29/19 20:59 Last Admin: 08/09/19 21:00 Dose: 30 mg Documented by: Fentanyl (Duragesic) 25 mcg TD Q3D@0900 [facility] Stop: 08/14/19 08:59 Last Admin: 08/09/19 09:01 Dose: 25 mcg Documented by: Fentanyl (Duragesic) 12 mcg TD Q3D@0900 [facility]; Protocol Stop: 08/17/19 08:59 Last Admin: 08/09/19 09:01 Dose: 12 mcg Documented by: Gabapentin (Neurontin) 200 mg PO BID@0830,1630 [facility] Stop: 08/30/19 08:29 Last Admin: 08/10/19 09:50 Dose: 200 mg Documented by: Gabapentin (Neurontin) 600 mg PO HS [facility] Stop: 08/29/19 20:59 Last Admin: 08/09/19 21:01 Dose: 600 mg Documented by: Guaifenesin/Dextromethorphan (Robitussin Cough-Chest Dm) 5 ml PO Q6H PRN PRN Reason: Cough Stop: 09/06/19 10:59 Last Admin: 08/09/19 22:19 Dose: 5 ml Documented by: Azithromycin 500 mg/ Dextrose 255 mls @ 125 mls/hr IV Q24H [facility] Stop: 08/16/19 14:59 Last Infusion: 08/09/19 18:38 Dose: Infused Documented by: Cefepime HCl 2,000 mg/ Syringe 20 mls @ 5.5 mls/min IV Q12H [facility]; Protocol Stop: 08/16/19 15:59 Last Admin: 08/10/19 03:45 Dose: 5.5 mls/min Documented by: Methylprednisolone 40 mg/ (Syringe) 0.64 mls @ 1.5 mls/min IV BID [facility] Stop: 09/08/19 20:59 Last Admin: 08/10/19 09:53 Dose: 1.5 mls/min Documented by: Levothyroxine Sodium (Synthroid) 88 mcg PO DAILYBB [facility] Stop: 09/05/19 06:29 Last Admin: 08/10/19 06:06 Dose: 88 mcg Documented by: Miconazole Nitrate (Desenex) 1 appln EXT PRN PRN PRN Reason: NURSING DECISION Stop: 09/08/19 22:31 Last Admin: 08/09/19 22:48 Dose: 1 appln Documented by: Miscellaneous (Fentanyl Patch Remove & Waste) 1 ea N/A Q72H [facility] Stop: 08/30/19 08:58 Last Admin: 08/09/19 09:04 Dose: 1 ea Documented by: Miscellaneous (Fentanyl Patch Check Placement) 1 ea N/A QS [facility] Stop: 08/30/19 00:00 Last Admin: 08/10/19 09:48 Dose: 1 ea Documented by: Miscellaneous (Fentanyl Patch Check Placement) 1 ea N/A QS [facility] Stop: 08/30/19 00:00 Last Admin: 08/10/19 09:49 Dose: 1 ea Documented by: Montelukast Sodium (Singulair) 10 mg PO PM [facility] Stop: 08/29/19 20:59 Last Admin: 08/09/19 21:02 Dose: 10 mg Documented by: Multi-Ingredient Cream (Hydrocerin) 1 appln EXT BID [facility] Stop: 09/02/19 20:59 Last Admin: 08/10/19 09:51 Dose: 1 appln Documented by: Multivitamins (Multivitamin Tab) 1 tab PO QAM [facility] Stop: 08/30/19 08:59 Last Admin: 08/10/19 09:50 Dose: 1 tab Documented by: Oxycodone HCl (Roxicodone Immediate Rel) 5 mg PO DAILY [facility] Stop: 08/14/19 08:59 Last Admin: 08/10/19 09:49 Dose: 5 mg Documented by: Oxycodone HCl (Roxicodone Immediate Rel) 5 mg PO QAM PRN PRN Reason: Moderate Stop: 08/13/19 18:06 Oxycodone HCl (Roxicodone Immediate Rel) 10 mg PO HS PRN PRN Reason: Pain management Stop: 08/13/19 18:06 Last Admin: 08/07/19 05:09 Dose: 10 mg Documented by: Pantoprazole Sodium (Protonix) 40 mg PO QAM [facility] Stop: 08/30/19 08:59 Last Admin: 08/10/19 09:50 Dose: 40 mg Documented by: Polyethylene Glycol (Miralax Powder Packet) 17 gm PO PM [facility] Stop: 08/29/19 20:59 Last Admin: 08/09/19 21:05 Dose: 17 gm Documented by: Ropinirole HCl (Requip) 1 mg PO QID [facility] Stop: 08/29/19 20:59 Last Admin: 08/10/19 09:50 Dose: 1 mg Documented by: Sodium Biphosphate/Sodium Phosphate (Fleet Enema) 132 ml LA DAILY PRN PRN Reason: Constipation Stop: 08/29/19 18:06 Sodium Chloride (Sodium Chlor 7% Neb Solution) 4 ml INH BIDR [facility] Stop: 09/08/19 18:59 Last Admin: 08/10/19 07:37 Dose: 4 ml Documented by: Tiotropium [place] (Spiriva) 1 puffs INH QAM [facility] Stop: 08/30/19 08:59 Last Admin: 08/10/19 10:32 Dose: 1 puffs Documented by: PG Care Time/CCT Total # of Minutes Spent Total Time Spent with Patient: Total time spent is greater than 50% in coordination of care (as documented) at patient's floor/unit and/or counseling patient:
--- NOTE | 2019-08-10 14:27 | XRay Report ---
XR chest 1V portable HISTORY: pneumonia COMPARISON: Chest 08/06/2019. FINDINGS: The heart remains mildly enlarged. No pneumothorax. Diffuse interstitial thickening has sli ghtly improved. Bibasilar linear densities persist. No pleural effusions. Lumbar spinal fusion hardwa re is again noted. Prior cholecystectomy. Mildly distended gas-filled transverse colon. This has slig htly progressed. IMPRESSION: 1. Bibasilar linear densities are nonspecific but favor subsegmental atelectasis. A pneumonia could a lso have a similar appearance. 2. Mild interstitial thickening which has improved. This favors resolving edema on the background of chronic interstitial change. 3. Mildly distended gas-filled transverse colon which has slightly decreased in size. Electronically signed by: Darshan Yin M.D. 08/10/2019 2:26 PM
[2019-08-10] MEDS: AZITHROMYCIN 500 MG in DEXTROSE 5% 250 ML IV SCH (15:24)
[2019-08-10] MEDS ORDERED: FUROSEMIDE 20 MG in SYRINGE 0 ML IV ONE (16:00)
[2019-08-10] MEDS: ACETAMINOPHEN 500 MG TAB PO SCH (21:09)
[2019-08-10] MEDS: POLYETHYLENE (MIRALAX) 17 GM PACK PO SCH (21:09)
[2019-08-10] MEDS: DULOXETINE HCL 30 MG CAP PO SCH (21:09)
[2019-08-10] MEDS: MONTELUKAST SODIUM 10 MG TABLET PO SCH (21:10)
[2019-08-10] MEDS: GABAPENTIN 600 MG TAB PO SCH (21:10)
[2019-08-11] MEDS: CHECK FENTANYL PATCH PLACEMENT SCH ×8 (00:21→23:33)
[2019-08-11] MEDS: CEFEPIME 2,000 MG in SYRINGE 7.5 ML IV SCH ×2 (03:32→16:46)
[2019-08-11] MEDS: LEVOTHYROXINE SODIUM 88 MCG TABLET PO SCH (05:45)
[2019-08-11 06:59] LABS: INR 1.1 (0.9-1.1); Prothrombin Time 11.4 Seconds (9.0-12.0)
[2019-08-11 07:06] LABS: BUN Creatinine Ratio 31.6 (10-20); Calcium 9.1 mg/dl (8.5-10.1); Creatinine Clr Calc Pharmacy 45.4 ml/min; Est GFR (Non-African American) 41.4; Potassium 4.3 mmol/L (3.5-5.1)
[2019-08-11 07:10] LABS: Hematocrit (blood only) 28.4 % (37-47); Mean Corpuscular Hgb Conc 31.7 g/dL (32-36); Mean Corpuscular Volume 107.2 fL (80-100); Mean Platelet Volume 11.9 fL (7.4-10.4); Platelet Count 109 K/uL (130-400); RDW Coefficient of Variation 18.2 % (11.5-14.5); RDW Standard Deviation 71.8 fL (36.4-46.3); Red Blood Count 2.65 M/uL (4.2-5.4); White Blood Count 8.22 K/uL (4.8-10.8)
[2019-08-11] MEDS: ALBUT/IPRATROP 3MG/0.5MG NEB 3 ML VIAL NEB SCH ×4 (07:15→19:40)
[2019-08-11] MEDS: ARFORMOTEROL TART 15MCG/2ML VIAL INH SCH ×2 (07:15→19:40)
[2019-08-11] MEDS: SODIUM CHLOR 7% 4 ML NEB INH SCH ×2 (07:16→19:40)
[2019-08-11] MEDS ORDERED: FUROSEMIDE 40 MG in SYRINGE 0 ML IV ONE (08:00)
[2019-08-11] MEDS: DICLOFENAC SOD 1% GEL 100 GM TUBE EXT SCH ×2 (08:45→21:02)
[2019-08-11] MEDS: GABAPENTIN 100 MG CAP PO SCH ×2 (08:45→16:48)
[2019-08-11] MEDS: allopurinoL 100 MG TAB PO SCH (08:45)
[2019-08-11] MEDS: TIOTROPIUM BROMIDE 5 PUFF/90 MCG INH INH SCH (08:45)
[2019-08-11] MEDS: EUCERIN CR 120 GM JAR EXT SCH ×2 (08:45→21:00)
[2019-08-11] MEDS: ROPINIROLE HCL 1 MG TABLET PO SCH ×4 (08:46→21:01)
[2019-08-11] MEDS: PANTOprazole 40 MG TAB PO SCH (08:46)
[2019-08-11] MEDS: MULTIVITAMIN TAB PO SCH (08:46)
[2019-08-11] MEDS: GUAIFENESIN/DEXTROM SYRUP 100MG/10MG 5ML UDC PO PRN (08:46)
[2019-08-11] MEDS: carvediloL 3.125 MG TAB PO SCH ×2 (08:47→20:58)
[2019-08-11] MEDS: methylPREDNISolone 40 MG in SYRINGE 0 ML IV SCH ×2 (08:48→21:06)
[2019-08-11] MEDS: OXYCODONE HCL IR 5 MG TAB (IMMEDIATE RELEASE) PO SCH (08:48)
--- NOTE | 2019-08-11 08:59 | Pulmonology Progress Note ---
Date of Service August 11, 2019 Assessment & Plan (1) Healthcare associated bacterial pneumonia: Patient continues to slowly improve. I do believe that we are treating a healthcare acquired pneumonitis and acute on chronic diastolic heart failure. There has been some improvement with resolution of the interstitial edema. Continue current therapy with vigorous pulmonary toilet and airway clearance maneuvers as outlined. There may be an element of amiodarone induced lung disease or pulmonary toxicity which at this point is a diagnosis of exclusion. May even be responsible for the thrombocytopenia which seems to be recovering. The patient have underlying myelodysplasia or a ITP and responding to steroid therapy? That is possible as well as the possibility of amiodarone induced thrombocytopenia. 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 88-year-old white female with complex medical history and I referred to my previous consultative note on 08/09/2019. Patient was seen earlier this morning till remains quite breathless with an intractable cough although the latter appe ars less violent in nature and she feels it is somewhat improved. She is now expectorating some phlegm that looks purulent. Her weight has decreased approximately 2 kg since yesterday following aggressive diuresis. Has been incontinent. Extra dose of Lasix was given this morning and will be this afternoon with close monitoring of renal function . We started empiric coverage for healthcare associated pneumonia with cefepime and azithromycin intravenously yesterday along with IV Solu-Medrol aerosolized bronchodilator in the form of DuoNeb solution as well as long-acting beta agonist in the form of Brovana solution. In addition 7% normal saline nebulizer treatments were prescribed along with flutter valve and vibration vest. Patient appears to be tolerating all these modalities and stated to me that she thought it might be helping. No hemoptysis noted. Review of Systems Constitutional: no problem reported Eyes: no problem reported Ear, Nose, Mouth, Throat: no problem reported Respiratory: no problem reported Cardiovascular: no problem reported Gastrointestinal: no problem reported Genitourinary: no problem reported Musculoskeletal: no problem reported Integumentary: no problem reported Neurologic: no problem reported Psychiatric: no problem reported Endocrine: no problem reported Hematologic / Lymphatic: no problem reported Allergy / Immunological: no problem reported Physical Exam Constitutional: well developed and well nourished; no acute distress Eyes: PERRL, conjunctivae normal, anicteric sclerae ENMT: external ear and nose normal, oropharynx normal Neck: trachea midline, no thyromegaly Respiratory: normal respiratory effort, + respiratory distress (mild) and + cough (intractable but less severe and now productive) Cardiovascular: RRR, no murmur, no edema Palpation: normal PMI; no thrill Extremities: + edema (Severe chronic stasis changes with 2+ pitting edema bilaterally) Gastrointestinal (Abdomen): normal bowel sounds, soft, nontender, no hepatosplenomegaly Musculoskeletal: no cyanosis or clubbing, extremities motor strength 5/5 Gait: normal gait Skin: no rashes, warm and dry Neurologic: PERRL, EOMI, accommodation nl, no face palsy, no dysarthria Psychiatric: A+Ox3, euthymic affect Lymphatic: no cervical or axillary lymphadenopathy Results & Data Vital Signs (Past 12 Hours) Vital Signs Temp Pulse Pulse Pulse Resp BP Pulse Ox 08/11/19 07:18 82 20 95 08/11/19 07:14 36.5 C 60 22 131/69 94 08/11/19 04:00 36.7 C 67 20 133/63 93 08/11/19 00:23 59 L 18 143/76 H 08/10/19 23:45 36.7 C 63 170/74 H 96 08/10/19 23:05 58 L 16 96 08/10/19 23:00 36.7 C 63 20 170/74 H 96 Laboratory Results Abnormal Labs 07/30/19 07/30/19 07/30/19 10:43 10:43 10:43 RBC 2.89 L Hgb 9.8 L Hct 30.7 L MCV 106.2 H MCH MCHC 31.9 L RDW Std Deviation 67.8 H RDW Coeff of Marta 17.7 H Plt Count 13 L* MPV Immature Gran # (Auto) 0.06 H Scurry # (Auto) 1.05 H Platelet Estimate PT > 90.0 H INR > 10.4 H* Fibrinogen D-Dimer Carbon Dioxide 38 H Anion Gap BUN 27 H BUN/Creatinine Ratio 25.6 H Glucose 128 H AST 13 L Total Protein 6.1 L Albumin 3.0 L Nasal Screen MRSA (PCR) Crossmatch 07/30/19 07/30/19 07/30/19 11:38 11:43 18:22 RBC Hgb 8.7 L Hct 27.8 L MCV MCH MCHC RDW Std Deviation RDW Coeff of Marta Plt Count MPV Immature Gran # (Auto) Scurry # (Auto) Platelet Estimate PT INR Fibrinogen 414 H D-Dimer 710 H* Carbon Dioxide Anion Gap BUN BUN/Creatinine Ratio Glucose AST Total Protein Albumin Nasal Screen MRSA (PCR) Crossmatch See Detail 07/30/19 07/30/19 07/31/19 22:57 23:50 05:43 RBC 2.50 L Hgb 9.0 L 8.3 L Hct 28.5 L 26.6 L MCV 106.4 H MCH MCHC 31.2 L RDW Std Deviation 68.2 H RDW Coeff of Marta 17.6 H Plt Count 14 L* MPV Immature Gran # (Auto) 0.07 H Scurry # (Auto) 1.43 H Platelet Estimate PT INR Fibrinogen D-Dimer Carbon Dioxide Anion Gap BUN BUN/Creatinine Ratio Glucose AST Total Protein Albumin Nasal Screen MRSA (PCR) Positive A Crossmatch 07/31/19 07/31/19 07/31/19 05:43 07:23 07:34 RBC Hgb Hct MCV MCH MCHC RDW Std Deviation RDW Coeff of Marta Plt Count MPV Immature Gran # (Auto) Scurry # (Auto) Platelet Estimate PT 13.3 H INR 1.3 H Fibrinogen D-Dimer 860 H* Carbon Dioxide 36 H Anion Gap BUN 26 H BUN/Creatinine Ratio 24.9 H Glucose 104 H AST Total Protein Albumin Nasal Screen MRSA (PCR) Crossmatch 08/01/19 08/01/19 08/02/19 07:30 07:30 06:14 RBC 2.53 L 2.49 L Hgb 8.7 L 8.4 L Hct 27.0 L 26.6 L MCV 106.7 H 106.8 H MCH 34.4 H MCHC 31.6 L RDW Std Deviation 69.7 H 67.9 H RDW Coeff of Marta 17.8 H 17.7 H Plt Count 9 L* 31 L D MPV Immature Gran # (Auto) 0.05 H 0.05 H Scurry # (Auto) 1.16 H 1.24 H Platelet Estimate PT INR Fibrinogen D-Dimer Carbon Dioxide 35 H Anion Gap BUN 28 H BUN/Creatinine Ratio 26.4 H Glucose AST Total Protein Albumin Nasal Screen MRSA (PCR) Crossmatch 08/02/19 08/02/19 08/03/19 06:14 06:14 06:24 RBC 2.47 L Hgb 8.5 L Hct 26.4 L MCV 106.9 H MCH 34.4 H MCHC RDW Std Deviation 68.8 H RDW Coeff of Marta 17.9 H Plt Count 24 L* MPV Immature Gran # (Auto) 0.08 H Scurry # (Auto) 1.22 H Platelet Estimate PT 18.8 H INR 1.9 H Fibrinogen D-Dimer Carbon Dioxide 36 H Anion Gap BUN 30 H BUN/Creatinine Ratio 28.3 H Glucose AST Total Protein Albumin Nasal Screen MRSA (PCR) Crossmatch 08/04/19 08/04/19 08/05/19 06:31 06:31 01:23 RBC 2.46 L 2.46 L Hgb 8.5 L 8.5 L Hct 26.6 L 26.3 L MCV 108.1 H 106.9 H MCH 34.6 H 34.6 H MCHC RDW Std Deviation 70.6 H 71.0 H RDW Coeff of Marta 18.1 H 18.2 H Plt Count 29 L* 24 L* MPV Immature Gran # (Auto) 0.12 H 0.12 H Scurry # (Auto) 1.47 H 1.24 H Platelet Estimate Decreased L PT INR Fibrinogen D-Dimer Carbon Dioxide 36 H Anion Gap 1.0 L BUN 31 H BUN/Creatinine Ratio 30.7 H Glucose AST Total Protein Albumin Nasal Screen MRSA (PCR) Crossmatch 08/05/19 08/05/19 08/06/19 01:23 01:23 06:45 RBC 2.57 L Hgb 8.8 L Hct 27.7 L MCV 107.8 H MCH 34.2 H MCHC 31.8 L RDW Std Deviation 71.8 H RDW Coeff of Marta 18.2 H Plt Count 24 L* MPV Immature Gran # (Auto) 0.20 H Scurry # (Auto) 1.24 H Platelet Estimate PT 18.8 H INR 1.9 H Fibrinogen D-Dimer Carbon Dioxide 35 H Anion Gap BUN 29 H BUN/Creatinine Ratio 27.5 H Glucose 128 H AST Total Protein Albumin Nasal Screen MRSA (PCR) Crossmatch 08/06/19 08/06/19 08/07/19 06:45 06:45 04:43 RBC 2.46 L Hgb 8.4 L Hct 26.5 L MCV 107.7 H MCH 34.1 H MCHC 31.7 L RDW Std Deviation 72.8 H RDW Coeff of Marta 18.6 H Plt Count 34 L MPV Immature Gran # (Auto) 0.22 H Scurry # (Auto) 1.58 H Platelet Estimate Decreased L PT 16.7 H INR 1.7 H Fibrinogen D-Dimer Carbon Dioxide Anion Gap BUN 29 H BUN/Creatinine Ratio 28.2 H Glucose AST Total Protein Albumin Nasal Screen MRSA (PCR) Crossmatch 08/07/19 08/07/19 08/08/19 04:43 04:43 07:02 RBC 2.60 L Hgb 9.0 L Hct 28.1 L MCV 108.1 H MCH 34.6 H MCHC RDW Std Deviation 73.1 H RDW Coeff of Marta 18.5 H Plt Count 30 L MPV Immature Gran # (Auto) Scurry # (Auto) Platelet Estimate Decreased L PT 14.4 H INR 1.4 H Fibrinogen D-Dimer Carbon Dioxide 36 H Anion Gap 2.0 L BUN 29 H BUN/Creatinine Ratio 27.8 H Glucose AST Total Protein Albumin Nasal Screen MRSA (PCR) Crossmatch 08/08/19 08/08/19 08/09/19 07:02 07:02 07:33 RBC 2.65 L Hgb 9.1 L Hct 28.6 L MCV 107.9 H MCH 34.3 H MCHC 31.8 L RDW Std Deviation 72.5 H RDW Coeff of Marta 18.4 H Plt Count 49 L D MPV 12.9 H Immature Gran # (Auto) Scurry # (Auto) Platelet Estimate Decreased L PT 13.0 H INR 1.3 H Fibrinogen D-Dimer Carbon Dioxide 34 H Anion Gap BUN 32 H BUN/Creatinine Ratio 29.4 H Glucose 101 H AST Total Protein Albumin Nasal Screen MRSA (PCR) Crossmatch 08/09/19 08/09/19 08/10/19 07:33 07:33 06:42 RBC 2.63 L Hgb 9.1 L Hct 28.2 L MCV 107.2 H MCH 34.6 H MCHC RDW Std Deviation 72.8 H RDW Coeff of Marta 18.3 H Plt Count 71 L MPV 11.9 H Immature Gran # (Auto) Scurry # (Auto) Platelet Estimate PT INR 1.2 H Fibrinogen D-Dimer Carbon Dioxide 34 H Anion Gap BUN 30 H BUN/Creatinine Ratio 28.1 H Glucose AST Total Protein Albumin Nasal Screen MRSA (PCR) Crossmatch 08/10/19 08/11/19 08/11/19 06:42 06:10 06:10 RBC 2.65 L Hgb 9.0 L Hct 28.4 L MCV 107.2 H MCH MCHC 31.7 L RDW Std Deviation 71.8 H RDW Coeff of Marta 18.2 H Plt Count 109 L D MPV 11.9 H Immature Gran # (Auto) Scurry # (Auto) Platelet Estimate PT INR Fibrinogen D-Dimer Carbon Dioxide 33 H 34 H Anion Gap BUN 32 H 37 H BUN/Creatinine Ratio 27.4 H 31.6 H Glucose 168 H 192 H AST Total Protein Albumin Nasal Screen MRSA (PCR) Crossmatch Diagnostic Findings Patient: EJ ADAM Date: 07/30/19 MR#: [id number]: [address] Acct ID:[id number]: [facility] Date: 1930[facility] [place] Zip: [place] [address] Age: 88Location: 2W Sex: F Room/Bed: [facility] Att Phy: Avelino Calero M.D.Diagnosis: SUPRATHERAPEUTIC INR,EPISTAXIS [facility]: [facility] Fam Phy:Interpreting Phy: Darshan Yin MD Admit Phy: Marlon Roman MD Ordering Phy: Buddy Hodgson MD cc: ~ XR chest 1V portable HISTORY: pneumonia COMPARISON: Chest 08/06/2019. FINDINGS: The heart remains mildly enlarged. No pneumothorax. Diffuse interstitial thickening has slightly improved. Bibasilar linear densities persist. No pleural effusions. Lumbar spinal fusion hardware is again noted. Prior cholecystectomy. Mildly distended gas-filled transverse colon. This has slightly progressed. IMPRESSION: 1. Bibasilar linear densities are nonspecific but favor subsegmental atelectasis. A pneumonia could also have a similar appearance. 2. Mild interstitial thickening which has improved. This favors resolving edema on the background of chronic interstitial change. 3. Mildly distended gas-filled transverse colon which has slightly decreased in size. Medications Administered Current Inpatient Medications Acetaminophen (Tylenol) 1,000 mg PO HS [facility] Stop: 08/29/19 20:59 Last Admin: 08/10/19 21:09 Dose: 1,000 mg Documented by: Acetaminophen (Tylenol) 325 - 650 mg PO Q6H PRN PRN Reason: Fever/pain Stop: 08/29/19 18:06 Last Admin: 08/09/19 10:41 Dose: 650 mg Documented by: Albuterol (Ventolin Hfa) 2 puffs INH Q4H PRN PRN Reason: COPD Stop: 08/29/19 18:06 Last Admin: 08/08/19 21:25 Dose: 2 puffs Documented by: Albuterol (Duoneb) 3 ml NEB Q4RWA [facility] Stop: 09/06/19 19:59 Last Admin: 08/11/19 07:15 Dose: 3 ml Documented by: Albuterol (Duoneb) 3 ml NEB Q4H PRN PRN Reason: Dyspnea Stop: 09/07/19 03:08 Last Admin: 08/08/19 03:47 Dose: 3 ml Documented by: Allopurinol (Zyloprim) 100 mg PO QAM [facility] Stop: 08/30/19 08:59 Last Admin: 08/11/19 08:45 Dose: 100 mg Documented by: Arformoterol Tartrate (Brovana Neb) 15 mcg INH BIDR [facility] Stop: 09/08/19 18:59 Last Admin: 08/11/19 07:15 Dose: 15 mcg Documented by: Artificial Tears (Artificial Tears) 1 drops OP PRN PRN PRN Reason: DRY EYES Stop: 09/06/19 10:49 Bisacodyl (Dulcolax) 10 mg OR DAILY PRN PRN Reason: Constipation Stop: 08/29/19 18:06 Carvedilol (Coreg) 3.125 mg PO BID [facility] Stop: 08/29/19 20:59 Last Admin: 08/11/19 08:47 Dose: 3.125 mg Documented by: Diclofenac Sodium (Voltaren 1% Top) 2 appln EXT BID [facility] Stop: 08/29/19 20:59 Last Admin: 08/11/19 08:45 Dose: 2 appln Documented by: Duloxetine HCl (Cymbalta) 30 mg PO QPM [facility] Stop: 08/29/19 20:59 Last Admin: 08/10/19 21:09 Dose: 30 mg Documented by: Fentanyl (Duragesic) 25 mcg TD Q3D@0900 [facility] Stop: 08/14/19 08:59 Last Admin: 08/09/19 09:01 Dose: 25 mcg Documented by: Fentanyl (Duragesic) 12 mcg TD Q3D@0900 [facility]; Protocol Stop: 08/17/19 08:59 Last Admin: 08/09/19 09:01 Dose: 12 mcg Documented by: Gabapentin (Neurontin) 200 mg PO BID@0830,1630 [facility] Stop: 08/30/19 08:29 Last Admin: 08/11/19 08:45 Dose: 200 mg Documented by: Gabapentin (Neurontin) 600 mg PO HS [facility] Stop: 08/29/19 20:59 Last Admin: 08/10/19 21:10 Dose: 600 mg Documented by: Guaifenesin/Dextromethorphan (Robitussin Cough-Chest Dm) 5 ml PO Q6H PRN PRN Reason: Cough Stop: 09/06/19 10:59 Last Admin: 08/11/19 08:46 Dose: 5 ml Documented by: Azithromycin 500 mg/ Dextrose 255 mls @ 125 mls/hr IV Q24H [facility] Stop: 08/16/19 14:59 Last Infusion: 08/10/19 17:30 Dose: Infused Documented by: Cefepime HCl 2,000 mg/ Syringe 20 mls @ 5.5 mls/min IV Q12H [facility]; Protocol Stop: 08/16/19 15:59 Last Admin: 08/11/19 03:32 Dose: 5.5 mls/min Documented by: Methylprednisolone 40 mg/ (Syringe) 0.64 mls @ 1.5 mls/min IV BID [facility] Stop: 09/08/19 20:59 Last Admin: 08/11/19 08:48 Dose: 1.5 mls/min Documented by: Levothyroxine Sodium (Synthroid) 88 mcg PO DAILYBB [facility] Stop: 09/05/19 06:29 Last Admin: 08/11/19 05:45 Dose: 88 mcg Documented by: Miconazole Nitrate (Desenex) 1 appln EXT PRN PRN PRN Reason: NURSING DECISION Stop: 09/08/19 22:31 Last Admin: 08/09/19 22:48 Dose: 1 appln Documented by: Miscellaneous (Fentanyl Patch Remove & Waste) 1 ea N/A Q72H [facility] Stop: 08/30/19 08:58 Last Admin: 08/09/19 09:04 Dose: 1 ea Documented by: Miscellaneous (Fentanyl Patch Check Placement) 1 ea N/A QS [facility] Stop: 08/30/19 00:00 Last Admin: 08/11/19 08:43 Dose: 1 ea Documented by: Renettaaneous (Fentanyl Patch Check Placement) 1 ea N/A QS [facility] Stop: 08/30/19 00:00 Last Admin: 08/11/19 08:44 Dose: 1 ea Documented by: Montelukast Sodium (Singulair) 10 mg PO PM [facility] Stop: 08/29/19 20:59 Last Admin: 08/10/19 21:10 Dose: 10 mg Documented by: Multi-Ingredient Cream (Hydrocerin) 1 appln EXT BID [facility] Stop: 09/02/19 20:59 Last Admin: 08/11/19 08:45 Dose: 1 appln Documented by: Multivitamins (Multivitamin Tab) 1 tab PO QAM [facility] Stop: 08/30/19 08:59 Last Admin: 08/11/19 08:46 Dose: 1 tab Documented by: Oxycodone HCl (Roxicodone Immediate Rel) 5 mg PO DAILY [facility] Stop: 08/14/19 08:59 Last Admin: 08/11/19 08:48 Dose: 5 mg Documented by: Oxycodone HCl (Roxicodone Immediate Rel) 5 mg PO QAM PRN PRN Reason: Moderate Stop: 08/13/19 18:06 Oxycodone HCl (Roxicodone Immediate Rel) 10 mg PO HS PRN PRN Reason: Pain management Stop: 08/13/19 18:06 Last Admin: 08/07/19 05:09 Dose: 10 mg Documented by: Pantoprazole Sodium (Protonix) 40 mg PO QAM [facility] Stop: 08/30/19 08:59 Last Admin: 08/11/19 08:46 Dose: 40 mg Documented by: Polyethylene Glycol (Miralax Powder Packet) 17 gm PO PM [facility] Stop: 08/29/19 20:59 Last Admin: 08/10/19 21:09 Dose: 17 gm Documented by: Ropinirole HCl (Requip) 1 mg PO QID [facility] Stop: 08/29/19 20:59 Last Admin: 08/11/19 08:46 Dose: 1 mg Documented by: Sodium Biphosphate/Sodium Phosphate (Fleet Enema) 132 ml OR DAILY PRN PRN Reason: Constipation Stop: 08/29/19 18:06 Sodium Chloride (Sodium Chlor 7% Neb Solution) 4 ml INH BIDR [facility] Stop: 09/08/19 18:59 Last Admin: 08/11/19 07:16 Dose: Not Given Documented by: Tiotropium [place] (Spiriva) 1 puffs INH QAM [facility] Stop: 08/30/19 08:59 Last Admin: 08/11/19 08:45 Dose: 1 puffs Documented by: Warfarin Sodium (Coumadin) 7.5 mg PO DAILY@1600 [facility] Stop: 09/10/19 15:59 PG Care Time/CCT Total # of Minutes Spent Total Time Spent with Patient: Total time spent is greater than 50% in coordination of care (as documented) at patient's floor/unit and/or counseling patient:
--- NOTE | 2019-08-11 11:25 | Hospitalist Progress Note ---
Date of Service August 11, 2019 Assessment & Plan (1) Acute on chronic diastolic CHF (congestive heart failure): - Developed increased SOB during this admission - likely related to acute CHF vs. ongoing pneumonia vs. Amiodarone induced lung disease. - Most recent CXR 08/10 showed mild pulmonary edema, improving overall. - Echo on 07/15 showed EF 55-60%, mild LVH, no wall motion abnormalities. - Monitor daily weights; weight has not significantly decreased. Cannot document I/Os (chronic incontinence) - Dose Lasix daily -- received Lasix 60 mg IV total on 08/10; will give 40 mg IV today, hold higher dose due to BUN level that is slowly trending up. - Continue Coreg as prescribed. - Continues to have cough and shortness of breath, has had mild improvement. Pulmonary following. (2) Pneumonia: - CT chest with bilat consolidations vs. atelectasis; CXR on 08/10 negative for PNA. - Completed Ceftriaxone & Vanc then Doxy x 3 days. - Has ongoing cough and SOB -- pulmonary consulted, appreciate input. - Continue Cefepime and Azithromycin (started 08/09) for empiric coverage of healthcare acquired PNA. - Solu-medrol 40 mg IV BID. - Duonebs q4hWA, NaCl neb BID, Brovana neb BID all scheduled. (3) Chronic respiratory failure with hypoxia: - Requires 4L via NC at baseline - currently on home requirements but has increased cough and SOB. - Diuresis as noted above for acute CHF. Treatment for PNA as noted below. - Consider amiodarone induced lung disease -- medication was started in June 2019, did not take for prolonged course prior to presenting to hospital. (4) History of pulmonary embolism: - Transitioned to Coumadin during last admission (concern she failed NOAC therapy due to high BMI). - Will resume Coumadin as plt >100K -- start at 7.5 mg (previously on 5 mg daily) and monitor INR daily. - Doppler of bilat LE negative for DVT. (5) Thrombocytopenia: - Likely Amiodarone induced vs. related to ?underlying bone marrow disorder. - Peripheral smear showed severe thrombocytopenia, macrocytic anemia and dysplasia of PMN leukocytes. - Consulted hematology, appreciate input. - D/c'ed Amiodarone at admission. - Trend CBC daily; resuming Coumadin today with close monitoring of plt counts. - Plt count was naturally trending up after d/c'ing Amiodarone but did increase after starting IV steroids -- steroids may be beneficial if pt. does have underlying bone marrow disorder. (6) Epistaxis: - Related to thrombocytopenia, resolved. (7) Anemia: - Hgb ~8-9 during this admission, baseline ~9-10 per previous labs. - Macrocytic anemia -- folate & B12 WNL on labs in May 2019. - Also has ?bone marrow disorder, concern for MDS that may be contributing to anemia. (8) Elevated INR: - INR was >10.4 on admission in setting of Coumadin therapy. - Will restart Coumadin as plt >100K. - Monitor INR levels daily. (9) Bone marrow disorder: - Pt. has been evaluated by hematology in the past for ?bone marrow disorder, declined bone marrow biopsy. 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 - Will continue to monitor daily; follow up hematology if pt. is agreeable. (10) Venous stasis: - Cellulitis noted on bilat LE; now resolved. - Doppler of bilat LE negative for DVT. - Completed course of Ceftriaxone, Vanc; currently receiving Cefepime as noted above for PNA. - Eucerin cream for wound care/dry skin. (11) PAF (paroxysmal atrial fibrillation): - In NSR. - Continue Coreg as prescribed. - D/c'ed Amiodarone due to toxicity. - Resuming Warfarin -- see above. (12) COPD (chronic obstructive pulmonary disease): - Pulmonary following, on IV abx; Solu-medrol 40 mg IV BID. - Continue home inhalers as prescribed along with scheduled nebs. (13) Chronic low back pain: - Continue home pain regimen with Oxycodone and Fentanyl patch. (14) Stage III chronic kidney disease: - Renally dose all meds. - Cr at baseline - BUN is trending up, monitor in setting of IV diuresis. (15) Neuropathy: - Continue home Cymbalta and Gabapentin as prescribed. (16) Hypothyroid: - Continue home Synthroid. - TSH is 9.87 -- increased to 88 mcg daily. - Will need repeat TFTs in 4 weeks. (17) RLS (restless legs syndrome): - Continue Requip QID as prescribed. (18) DVT prophylaxis: - SCDs; resuming Warfarin. Dispo: Discharge to [facility] pending improvement in respiratory issues. Subjective Pt. has ongoing cough and SOB at rest -- very minimal improvement. Leg swelling/redness is at baseline. Review of Systems Review of Systems: All systems reviewed & are unremarkable except as noted in HPI & below Constitutional: + fatigue and + weakness; no fever, no chills and no anorexia Respiratory: + cough, + dyspnea, + dyspnea on exertion and + sputum production; no change in sputum and no wheezing Cardiovascular: + edema; no chest pain and no palpitations Gastrointestinal: no abdominal pain, no nausea and no constipation Genitourinary: + urinary incontinence; no difficulty urinating Musculoskeletal: no back pain and no joint pain Integumentary: + erythema and + dry skin; no non-healing lesions, no skin ulcer and no sores Physical Exam Physical Exam: General: No acute distress HEENT: NC/AT; PERRLA with EOMI; Mead conjunctiva, MMM. No erythema of posterior pharynx Neck: Supple and nontender Cardiac: RRR Lungs: 3L via NC; diminished throughout. Abdomen: Bowel normoactive X 4; Nontender to palpation Extremities: Warm. +1 bilat LE edema, mild baseline erythema, chronic. Neuro: No focal weakness Skin: see above. Results & Data Vital Signs (Past 12 Hours) Vital Signs Temp Pulse Pulse Resp BP Pulse Ox 08/11/19 07:18 82 20 95 08/11/19 07:14 36.5 C 60 22 131/69 94 08/11/19 04:00 36.7 C 67 20 133/63 93 08/11/19 00:23 59 L 18 143/76 H 08/10/19 23:45 36.7 C 63 170/74 H 96 Laboratory Results 08/11/19 08/11/19 08/11/19 Range/Units 06:10 06:10 06:10 WBC 8.22 (4.8-10.8) K/uL RBC 2.65 L (4.2-5.4) M/uL Hgb 9.0 L (12.0-16.0) g/dL Hct 28.4 L (37-47) % MCV 107.2 H (80-100) fL MCH 34.0 (25-34) pg MCHC 31.7 L (32-36) g/dL RDW Std Deviation 71.8 H (36.4-46.3) fL RDW Coeff of Marta 18.2 H (11.5-14.5) % Plt Count 109 L D (130-400) K/uL MPV 11.9 H (7.4-10.4) fL PT 11.4 (9.0-12.0) Seconds INR 1.1 (0.9-1.1) Sodium 138 (136-145) mmol/L Potassium 4.3 (3.5-5.1) mmol/L Chloride 99 (98-107) mmol/L Carbon Dioxide 34 H (21-32) mmol/L Anion Gap 5.0 (3-11) BUN 37 H (7-18) mg/dl Creatinine 1.18 (0.6-1.2) mg/dl Est Cr Clr Drug Dosing 45.4 ml/min Est GFR ( Amer) 48.0 Est GFR (Non-Af Amer) 41.4 BUN/Creatinine Ratio 31.6 H (10-20) Glucose 192 H (70-99) mg/dl Calcium 9.1 (8.5-10.1) mg/dl PG Care Time/CCT Total # of Minutes Spent Total Time Spent with Patient: Total time spent is greater than 50% in coordination of care (as documented) at patient's floor/unit and/or counseling patient: (1) Chronic low back pain Back pain laterality: unspecified Sciatica presence: unspecified whether sciatica present Qualified Code(s): M54.5 - Low back pain; G89.29 - Other chronic pain (2) Anemia Anemia type: unspecified type Qualified Code(s): D64.9 - Anemia, unspecified (3) Pneumonia Laterality: unspecified laterality Lung location: unspecified part of lung Pneumonia type: due to unspecified organism Qualified Code(s): J18.9 - Pneumonia, unspecified organism
[2019-08-11] MEDS: AZITHROMYCIN 500 MG in DEXTROSE 5% 250 ML IV SCH (15:25)
[2019-08-11] MEDS: WARFARIN SOD 7.5 MG TAB PO SCH (16:48)
[2019-08-11] MEDS: DULOXETINE HCL 30 MG CAP PO SCH (20:59)
[2019-08-11] MEDS: GABAPENTIN 600 MG TAB PO SCH (21:00)
[2019-08-11] MEDS: MONTELUKAST SODIUM 10 MG TABLET PO SCH (21:01)
[2019-08-11] MEDS: POLYETHYLENE (MIRALAX) 17 GM PACK PO SCH (21:06)
[2019-08-11] MEDS: ACETAMINOPHEN 500 MG TAB PO SCH (21:06)
[2019-08-12] MEDS: CEFEPIME 2,000 MG in SYRINGE 7.5 ML IV SCH ×2 (03:35→15:59)
[2019-08-12] MEDS: LEVOTHYROXINE SODIUM 88 MCG TABLET PO SCH (06:07)
[2019-08-12 06:39] LABS: Hematocrit (blood only) 27.7 % (37-47); Hemoglobin 9.3 g/dL (12.0-16.0); Mean Corpuscular Hemoglobin 35.4 pg (25-34); Mean Corpuscular Hgb Conc 33.6 g/dL (32-36); Mean Corpuscular Volume 105.3 fL (80-100); Mean Platelet Volume 12.5 fL (7.4-10.4); Platelet Count 148 K/uL (130-400); RDW Coefficient of Variation 18.1 % (11.5-14.5); RDW Standard Deviation 70.3 fL (36.4-46.3); Red Blood Count 2.63 M/uL (4.2-5.4); White Blood Count 8.82 K/uL (4.8-10.8)
[2019-08-12 06:47] LABS: INR 1.2 (0.9-1.1)
[2019-08-12] MEDS: ARFORMOTEROL TART 15MCG/2ML VIAL INH SCH ×2 (07:07→19:19)
[2019-08-12] MEDS: ALBUT/IPRATROP 3MG/0.5MG NEB 3 ML VIAL NEB SCH ×4 (07:07→19:59)
[2019-08-12] MEDS: SODIUM CHLOR 7% 4 ML NEB INH SCH ×2 (07:07→19:19)
[2019-08-12 07:09] LABS: Calcium 9.3 mg/dl (8.5-10.1); Creatinine Clr Calc Pharmacy 47.4 ml/min; Est GFR (African American) 51.7; Est GFR (Non-African American) 44.6; Potassium 4.3 mmol/L (3.5-5.1)
[2019-08-12] MEDS: CHECK FENTANYL PATCH PLACEMENT SCH ×4 (09:00→15:57)
[2019-08-12] MEDS: fentaNYL 25 MCG/HR TDSY TD SCH ×3 (09:01→15:57)
[2019-08-12] MEDS: fentaNYL 12 MCG/HR TDSY TD SCH (09:03)
[2019-08-12] MEDS: GABAPENTIN 100 MG CAP PO SCH ×2 (09:11→16:00)
[2019-08-12] MEDS: carvediloL 3.125 MG TAB PO SCH ×2 (09:13→21:02)
[2019-08-12] MEDS: MULTIVITAMIN TAB PO SCH (09:14)
[2019-08-12] MEDS: PANTOprazole 40 MG TAB PO SCH (09:15)
[2019-08-12] MEDS: ROPINIROLE HCL 1 MG TABLET PO SCH ×4 (09:16→21:03)
[2019-08-12] MEDS: methylPREDNISolone 40 MG in SYRINGE 0 ML IV SCH ×2 (09:18→21:04)
[2019-08-12] MEDS: TIOTROPIUM BROMIDE 5 PUFF/90 MCG INH INH SCH (09:19)
[2019-08-12] MEDS: allopurinoL 100 MG TAB PO SCH (09:23)
[2019-08-12] MEDS: OXYCODONE HCL IR 5 MG TAB (IMMEDIATE RELEASE) PO SCH (09:35)
[2019-08-12] MEDS: EUCERIN CR 120 GM JAR EXT SCH ×2 (09:38→21:03)
[2019-08-12] MEDS: DICLOFENAC SOD 1% GEL 100 GM TUBE EXT SCH ×2 (09:38→21:04)
[2019-08-12] MEDS: ACETAMINOPHEN 325 MG TAB PO PRN (14:12)
[2019-08-12] MEDS: AZITHROMYCIN 500 MG in DEXTROSE 5% 250 ML IV SCH (14:16)
[2019-08-12] MEDS: WARFARIN SOD 7.5 MG TAB PO SCH (15:55)
[2019-08-12] MEDS: POLYETHYLENE (MIRALAX) 17 GM PACK PO SCH (21:03)
[2019-08-12] MEDS: DULOXETINE HCL 30 MG CAP PO SCH (21:03)
[2019-08-12] MEDS: MONTELUKAST SODIUM 10 MG TABLET PO SCH (21:04)
[2019-08-12] MEDS: ACETAMINOPHEN 500 MG TAB PO SCH (21:04)
[2019-08-12] MEDS: GABAPENTIN 600 MG TAB PO SCH (21:49)
[2019-08-12] MEDS ORDERED: GUAIFENESIN/CODEINE 200MG/20MG 10ML UDC PO PRN (22:21)
--- NOTE | 2019-08-12 22:21 | Pulmonology Progress Note ---
Date of Service August 12, 2019 Assessment & Plan (1) Healthcare associated bacterial pneumonia: Clinically patient is still actively coughing. She does state that breathing has improved a little bit. We will continue with antibiotics she is on azithromycin right now. Continue with steroids as well which will help with her component of bronchitis too. We will add guaifenesin with codeine for cough. There is a component of mild pulmonary vascular congestion too Continue with diuresis as tolerated. (2) Chronic respiratory failure with hypoxia: Continue with oxygen supplementation to keep oxygen between 80 to 92%. On 4 L oxygen at home. (3) Venous stasis: (4) History of pulmonary embolism: Was on warfarin at home. Antic regulation were held because of thrombocytopenia. Warfarin to be restarted thrombocytopenia resolved. (5) Hypothyroid: (6) Thrombocytopenia: (7) COPD (chronic obstructive pulmonary disease): Continue with inhaled bronchodilator therapy LABA/ICS and LAMA Continue with steroids IV for the time being. Will assess tomorrow and see if he can titrate down and taper steroids. (8) Obesity (BMI 30.0-34.9): (9) CARLITOS (obstructive sleep apnea): Needs to be compliant with BiPAP. BiPAP nightly and as needed shortness of breath. Subjective Patient seen and examined at bedside. Patient was actively coughing at the time of examination. Patient states shortness of breath is improved. Denies any chest pain, no headache, no nausea, no vomiting. Tolerating diet. States that brings up a little bit of clear phlegm. Compliant with CPAP at night. Review of Systems Review of Systems: All systems reviewed & are unremarkable except as noted in HPI & below Physical Exam Physical Exam: Constitutional: No acute distress, actively coughing HEENT: EOMI, PERRLA, thick neck Respiratory system: DecreasedAir entry bilaterally, positive bilateral wheeze, no rhonchi, no crackles CVS: S1-S2 positive, no murmurs or gallops Abdomen: Soft, nontender, nondistended, positive bowel sounds x4 Extremities: +2 pulses bilaterally radialis/ dorsalis pedis, +1 edema, no cyanosis Neuro: Awake alert oriented x3 Psych: Normal mood and affect Lymphatic: no cervical or axillary lymphadenopathy Results & Data Vital Signs (Past 12 Hours) Vital Signs Temp Pulse Resp BP Pulse Ox 08/12/19 18:59 36.5 C 62 20 130/62 100 09/30/19 16:16 36.5 C 68 24 122/64 100 08/12/19 15:25 63 18 97 08/12/19 11:38 34.8 C L 58 L 24 137/60 97 08/12/19 11:17 67 18 96 Laboratory Results 08/12/19 06:28 08/12/19 06:28 Thrombocytopenia improving. Diagnostic Findings Chest x-ray from 08/02/[address] chest from 07/30/2019 PG Care Time/CCT Total # of Minutes Spent Total Time Spent with Patient: Total time spent is greater than 50% in coordination of care (as documented) at patient's floor/unit and/or counseling patient:
--- NOTE | 2019-08-13 00:20 | Hospitalist Progress Note ---
Date of Service August 12, 2019 Assessment & Plan (1) Chronic respiratory failure with hypoxia: Acute on chronic exacerbation. Now back to her baseline O2 requirement. Multifactorial from healthcare acquired pneumonia, pulmonary edema. Much less likely amiodarone induced fibrosis given short duration of use - however concern this did cause an immune related thrombocytopenia. (2) Acute on chronic diastolic CHF (congestive heart failure): Suspect minimal contribution towards shortness of breath and hypoxia given continued increasing BUN and prior Echo on 07/15 showed EF 55-60%, mild LVH, no wall motion abnormalities. Weight decreased 299 lb to 289 lb this admission Continue Coreg as prescribed. Repeat CXR in AM. (3) Pneumonia: - Completed Ceftriaxone & Vanc then Doxy x 3 days. - Continue Cefepime and Azithromycin (started 08/09) for empiric coverage of healthcare acquired PNA. - Solu-medrol 40 mg IV BID. - Duonebs q4hWA, NaCl neb BID, Brovana neb BID all scheduled. 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 Improved with both stopping amiodarone and using steroids so unclear of true diagnosis. Concern for longer-standing MDS which she will follow up with heme/onc as an outpatient (previously refused bone marrow biopsy). (5) Epistaxis: Related to thrombocytopenia and supratherapeutic INR (6) Anemia: Hgb ~8-9 during this admission, baseline ~9-10 per previous labs. Macrocytic anemia -- folate & B12 WNL on labs in May 2019. Multifactorial with CKD, chronic disease, MDS (high MCV, B12 910, folate 23.71 in May) (7) Elevated INR: Resolved INR was >10.4 on admission in setting of warfarin with amiodarone. Now restarted warfarin without amiodarone since Plt improved. (8) Bone marrow disorder: Likely has underlying MDS based on CBC findings. F/U heme/onc O/P (9) Venous stasis: Cellulitis previously noted on bilat LE; now resolved. Completed course of Ceftriaxone, Vanc; currently receiving Cefepime as noted above for PNA. Eucerin cream for wound care/dry skin. (10) PAF (paroxysmal atrial fibrillation): Last pAF in setting of PNA and ICU admission. Will discuss with her cardiology regarding alternative anti-arrhythmic to amiodarone given concern this caused her thrombocytopenia. Continue Coreg as prescribed. Continue warfarin, monitor INR (11) COPD (chronic obstructive pulmonary disease): With acute exacerbation Appreciate pulmonology management Solu-medrol 40 mg IV BID. - Continue home inhalers as prescribed along with scheduled nebs. (12) Chronic low back pain: - Continue home pain regimen with Oxycodone and Fentanyl patch. (13) Stage III chronic kidney disease: - Renally dose all meds. - Cr at baseline - BUN is trending up, monitor in setting of IV diuresis. (14) Neuropathy: - Continue home Cymbalta and Gabapentin (15) Hypothyroid: - TSH is 9.87 (last few values also elevated) - increased to 88 mcg daily. - Repeat TSH in 4 weeks after discharge (16) RLS (restless legs syndrome): - Continue Requip (17) History of pulmonary embolism: - Supratherapeutic on admission. Now resumed on warfarin since plt improved. - daily PTINR. - Doppler of bilat LE negative for DVT. (18) DVT prophylaxis: - SCDs; resuming Warfarin. Dispo: Discharge to [facility] pending improvement in respiratory issues. Subjective Patient with multifactorial shortness of breath and hypoxia. She reports large improvement since admission however does not feel like back to her baseline. She is still concerned about going back to [facility] at her present state as was just readmitted earlier in July. Continued productive cough. No chest pain. Review of Systems Review of Systems: All systems reviewed & are unremarkable except as noted in HPI & below Physical Exam Constitutional: well developed, + ill appearing (chronically) and + obese; no acute distress Eyes: + anicteric sclerae and PERRL ENMT: external ear and nose normal, oropharynx normal Neck: trachea midline and + thick neck Respiratory: normal respiratory effort, + cough (productive) and + prolonged expiratory phase; no respiratory distress Auscultation: + diminished lung sounds (bibasal) and + crackles (bibasal); no rales and no wheezes Cardiovascular: Rate/Rhythm: regular rate and regular rhythm Heart Sounds: no murmur Extremities: + edema (chronic dermatitis changes 2+ to mid shins b/l) Gastrointestinal (Abdomen): Inspection/Auscultation: normal bowel sounds; abdomen not distended and no abdominal edema Percussion/Palpation: abdomen soft; abdomen nontender, no guarding and abdomen not rigid Musculoskeletal: no cyanosis or clubbing, extremities motor strength 5/5 Gait: normal gait Skin: no rashes, warm and dry Neurologic: moves all extremities and awake; no focal motor deficits Motor/Sensory: no sensory deficit Psychiatric: A+Ox3, euthymic affect Results & Data Vital Signs (Past 12 Hours) Vital Signs Temp Pulse Resp BP Pulse Ox 08/12/19 18:59 97.7 F 62 20 130/62 100 08/12/19 16:16 97.7 F 68 24 122/64 100 08/12/19 15:25 63 18 97 PG Care Time/CCT Total # of Minutes Spent Total Time Spent with Patient: Total time spent is greater than 50% in coordination of care (as documented) at patient's floor/unit and/or counseling patient: (1) Pneumonia Laterality: unspecified laterality Lung location: unspecified part of lung Pneumonia type: due to unspecified organism Qualified Code(s): J18.9 - Pneumonia, unspecified organism (2) Anemia Anemia type: unspecified type Qualified Code(s): D64.9 - Anemia, unspecified (3) COPD (chronic obstructive pulmonary disease) COPD type: COPD with acute exacerbation Qualified Code(s): J44.1 - Chronic obstructive pulmonary disease with (acute) exacerbation (4) Chronic low back pain Back pain laterality: unspecified Sciatica presence: unspecified whether sci atica present Qualified Code(s): M54.5 - Low back pain; G89.29 - Other chronic pain
[2019-08-13] MEDS: CHECK FENTANYL PATCH PLACEMENT SCH ×6 (00:28→17:02)
[2019-08-13] MEDS: CEFEPIME 2,000 MG in SYRINGE 7.5 ML IV SCH ×2 (04:34→17:27)
[2019-08-13] MEDS: LEVOTHYROXINE SODIUM 88 MCG TABLET PO SCH (05:37)
[2019-08-13 06:46] LABS: Basophils # (auto) 0.01 K/uL (0-0.2); Basophils % (auto) 0.1 %; Hemoglobin 9.4 g/dL (12.0-16.0); Immature Granulocytes # (auto) 0.11 K/uL (0.00-0.02); Immature Granulocytes % (auto) 1.4 %; Lymphocytes # (auto) 1.67 K/uL (1.2-3.4); Mean Corpuscular Hemoglobin 34.1 pg (25-34); Mean Corpuscular Hgb Conc 32.4 g/dL (32-36); Mean Corpuscular Volume 105.1 fL (80-100); Mean Platelet Volume 12.9 fL (7.4-10.4); Monocytes # (auto) 0.56 K/uL (0.11-0.59); Neutrophils % (auto) 70.5 %; Nucleated RBC # (auto) 0.02 K/uL (0-0); Nucleated RBC % (auto) 0.2 %; Platelet Count 192 K/uL (130-400); RDW Coefficient of Variation 17.9 % (11.5-14.5); Red Blood Count 2.76 M/uL (4.2-5.4); White Blood Count 7.95 K/uL (4.8-10.8)
[2019-08-13 07:00] LABS: INR 2.1 (0.9-1.1); Prothrombin Time 20.3 Seconds (9.0-12.0)
[2019-08-13] MEDS: SODIUM CHLOR 7% 4 ML NEB INH SCH ×2 (07:13→19:24)
[2019-08-13] MEDS: ALBUT/IPRATROP 3MG/0.5MG NEB 3 ML VIAL NEB SCH ×4 (07:13→19:23)
[2019-08-13] MEDS: ARFORMOTEROL TART 15MCG/2ML VIAL INH SCH ×2 (07:13→19:23)
[2019-08-13 07:21] LABS: BUN Creatinine Ratio 39.8 (10-20); Calcium 9.4 mg/dl (8.5-10.1); Creatinine Clr Calc Pharmacy 50.2 ml/min; Est GFR (African American) 54.7; Est GFR (Non-African American) 47.2; Potassium 4.5 mmol/L (3.5-5.1)
--- NOTE | 2019-08-13 08:20 | XRay Report ---
XR chest 2V routine CLINICAL HISTORY: Hypoxia, pulmonary edema, pneumonia. COMPARISON STUDY: 08/10/2019 FINDINGS: The heart is mildly enlarged. There is aortic tortuosity/ectasia. There is mild interstitia l thickening similar to the preceding study. Increased basilar markings remain similar given the slig htly improved degree of inspiration. Atelectasis is favored. There are no large pleural effusions. Th ere is a stable deformity of the right fifth anterior rib with associated pleural reaction. Degenerat kristyn changes are present within the thoracic spine. There are postsurgical changes in the lumbar spine .[ IMPRESSION: Stable interstitial thickening and basilar opacities, likely atelectatic Electronically signed by: Tyshawn Anguiano M.D. 08/13/2019 8:19 AM
[2019-08-13] MEDS: EUCERIN CR 120 GM JAR EXT SCH ×2 (08:37→20:17)
[2019-08-13] MEDS: GABAPENTIN 100 MG CAP PO SCH ×2 (08:37→17:05)
[2019-08-13] MEDS: PANTOprazole 40 MG TAB PO SCH (08:38)
[2019-08-13] MEDS: ROPINIROLE HCL 1 MG TABLET PO SCH ×4 (08:38→20:18)
[2019-08-13] MEDS: MULTIVITAMIN TAB PO SCH (08:39)
[2019-08-13] MEDS: TIOTROPIUM BROMIDE 5 PUFF/90 MCG INH INH SCH (08:39)
[2019-08-13] MEDS: DICLOFENAC SOD 1% GEL 100 GM TUBE EXT SCH ×2 (08:40→20:17)
[2019-08-13] MEDS: methylPREDNISolone 40 MG in SYRINGE 0 ML IV SCH ×2 (08:43→20:18)
[2019-08-13] MEDS: OXYCODONE HCL IR 5 MG TAB (IMMEDIATE RELEASE) PO SCH (08:43)
[2019-08-13] MEDS: carvediloL 3.125 MG TAB PO SCH ×2 (08:44→20:16)
[2019-08-13] MEDS: allopurinoL 100 MG TAB PO SCH (08:44)
--- NOTE | 2019-08-13 13:20 | Cardiology Consultation ---
Date of Consultation August 13, 2019 Assessment & Plan (1) PAF (paroxysmal atrial fibrillation): Appears to be regular on exam, likely sinus. ECG ordered. She has 1 documented episode of paroxysmal atrial fibrillation in the setting of acute on chronic respiratory failure with pneumonia and possibly CHF earlier in July of 2019. Amiodarone has been discontinued due to concern that it caused significant thrombocytopenia. Therefore, would not restart amiodarone. Would not restart any anti rhythmic therapy at this time, but rather continue beta- chad. Because she has had only 1 documented episode and currently appears to be in sinus rhythm, would recommend watching over time for recurrent arrhythmia and then if appropriate in the future, can choose most appropriate therapy at that time. Anticoagulation for stroke risk reduction and also history of DVT/PE. (2) Chronic diastolic CHF (congestive heart failure): She does appear to be hypervolemic. Lasix 40 mg IV x1 ordered today. She takes 40 mg of Lasix at home. Her BUN has become more elevated the past few days but she also is on steroids. Would try to maintain a negative net fluid balance. Low-sodium diet. Daily weights and strict I&Os recommended. (3) Hypertension: Blood pressure has been normotensive to mildly hypertensive. Diuretic given today. (4) Chronic respiratory failure: Likely multifactorial. She has documented CHF, COPD, prior lung cancer status post wedge resection, sleep apnea, obesity, and recent pneumonia, currently on Antibiotic therapy. Diuretic ordered as above. Also being followed by pulmonology and primary hospitalist service. Disposition: Dr. Stout, her primary electronics technician, Will resume her cardiology care tomorrow. Patient care has been discussed with primary hospitalist, Dr. Garcia. Please call with questions or concerns. Thank you for allowing me to participate in the care of your patient. Please call for any other questions or concerns. Sincerely, Jose Luis Mendez M.D. History of Present Illness Reason for Consultation: Paroxysmal atrial fibrillation. Requesting Physician: Leandro Garcia MD Attending Physician: Leandro Garcia MD History of Present Illness Ms. Mendez is a pleasant 88-year-old female with history significant for paroxysmal atrial fibrillation, diastolic CHF, renal insufficiency, COPD the, sleep apnea, breast cancer status post right mastectomy, lung cancer status post right-sided wedge resection (October 2010), right lower extremity DVT (2010) status post Holcomb filter, and myelodysplastic syndrome versus leukemia. Her primary electronics technician is Dr. Stout. Earlier this month, she was hospitalized and seen by Dr. Stout on 07/15/2019 for atrial fibrillation with rapid ventricular response. She was placed on amiodarone and converted to sinus rhythm. She was also being treated for acute on chronic respiratory failure in the setting of pneumonia and also CHF. She was readmitted on 07/30/2019 for thrombocytopenia, anemia, epistaxis, and supratherapeutic INR. Her platelet level at that time was 13,000. She has been seen by Hematology. There was concern that perhaps amiodarone was the cause of thrombocytopenia and therefore amiodarone has been discontinued. She has received platelet transfusion. Over the past several days, her platelet level has normalized. She is being followed by pulmonology. She is being treated with methylprednisolone, antibiotics, and diuretics. Based on scanned in telemetry strips from 07/30/2019, she appeared to be in atrial fibrillation versus atrial runs and then otherwise sinus rhythm during this hospital stay. She is currently off of telemetry with heart rates in the 50s. She states that she is chronically short of breath and uses supplemental oxygen at home. She believes that her breathing is stable. She has dyspnea with exertion and also some orthopnea, stating that this is chronic. She has chronic lower extremity edema and believes that is stable. She denies chest pain, syncope, near-syncope, palpitations, or current bleeding such as melena, hematochezia, or hematuria. She has cough productive of yellow sputum. She hopes to go home today. Review of systems: As above. Review of systems otherwise negative/unremarkable. Social history: She is a . No children. She denies smoking or alcohol. She resides at [facility]. She was unaccompanied today. Family history: Noncontributory. Allergies Allergy/AdvReac Type Severity Reaction Status Date / Time enoxaparin Allergy Intermediate RASH, Verified 07/30/19 11:05 PRURITUS Home Medications Home Medications Medication Instructions Recorded Confirmed Type Prilosec OTC 20 mg PO QAM 09/07/18 07/30/19 History Spiriva with HandiHaler 1 cap INHALATION QAM 09/07/18 07/30/19 History allopurinol 100 mg PO QAM 09/07/18 07/30/19 History duloxetine 30 mg PO QPM 09/07/18 07/30/19 History gabapentin 600 mg PO HS 09/07/18 07/30/19 History montelukast [Singulair] 10 mg PO PM 09/07/18 07/30/19 History albuterol sulfate 2.5 mg INH Q6H #90 ml 09/11/18 07/30/19 Rx Restasis MultiDose 1 drp OPHTHALMIC (EYE) BID 11/06/18 07/30/19 History acetaminophen 325 - 650 mg PO Q6H PRN MDD 3G 11/06/18 07/30/19 History albuterol sulfate [Ventolin HFA] 2 puff INHALATION Q4H PRN 11/06/18 07/30/19 History azelastine 2 spray INTRANASAL QAM 11/06/18 07/30/19 History fluticasone propionate [Flonase 2 spray INTRANASAL DAILY 11/06/18 07/30/19 History Allergy Relief] multivitamin 1 tab PO QAM 11/06/18 07/30/19 History acetaminophen [Tylenol Extra 1,000 mg PO HS 02/02/19 07/30/19 History Strength] diclofenac sodium [Voltaren] 2 g TOPICAL BID 02/02/19 07/30/19 History sodium chloride [[place] Nasal] 1 spray INTRANASAL UD PRN 02/02/19 07/30/19 History benzonatate [Tessalon Perles] 100 mg PO TID 07/14/19 07/30/19 History budesonide [Pulmicort] 0.5 mg NEB Q12H 07/14/19 07/30/19 History gabapentin 200 mg PO BID 07/14/19 07/30/19 History oxycodone 5 mg PO QAM PRN 07/14/19 07/30/19 History polyethylene glycol 3350 [Miralax] 17 g PO PM 07/14/19 07/30/19 History amiodarone 200 mg PO BIDM 30 Days #60 tab 07/21/19 07/30/19 Rx carvedilol 3.125 mg PO BID 30 Days #60 tab 07/21/19 07/30/19 Rx furosemide 40 mg PO QAM 30 Days #30 tab 07/21/19 07/30/19 Rx ropinirole 1 mg PO QID 30 Days #120 tab 07/21/19 07/30/19 Rx warfarin [Coumadin] 5 mg PO DAILY #30 tab 07/21/19 07/30/19 Rx bisacodyl 10 mg [place] DAILY PRN 07/30/19 07/30/19 History fluticasone propion-salmeterol 1 puff INHALATION Q12H 07/30/19 07/30/19 History [Advair Diskus] levothyroxine 75 mcg PO DAILY 07/30/19 07/30/19 History sodium phosphates [Fleet Enema] 118 ml [place] DAILY PRN 07/30/19 07/30/19 History fentanyl 1 patch TRANSDERMAL Q72H 30 Days 08/09/19 Rx #10 ea oxycodone 5 mg PO DAILY 30 Days #30 tab 08/09/19 Rx oxycodone 10 mg PO HS PRN 30 Days #30 tab 08/09/19 Rx Patient History Medical History Chronic back pain RLS (restless legs syndrome) Chronic diastolic CHF (congestive heart failure) (Chronic) COPD exacerbation (Acute) Hypoxia (Acute) Hypertension (Chronic) Asthma (Chronic) CKD (chronic kidney disease), stage III (Chronic) DCIS (ductal carcinoma in situ) (~2012) Deep vein blood clot of right lower extremity History of pulmonary embolism Lung cancer (~2010) Spasmodic dysphonia Surgical History H/O mastectomy History of back surgery Hx of appendectomy Hx of hernia repair Hx of hysterectomy Hx of resection of liver Hx of total knee replacement Family History Other Family history non-contributory Social History Preferred Language: Chinese Communication Ability: Effective Practice Office Associate Required: No Beliefs That Will Affect Care: None Current Living Situation: Assisted Current Living Situation Comment: [facility] Feels Safe at Home: Yes Smoking Status: Never smoker Second Hand Exposure: No ; Hx Alcohol Use: No Hx Substance Use: No Physical Exam Physical Exam: Gen.: No acute distress. Alert and oriented. HEENT: Anicteric sclera. Neck: Thick neck. Mild JVD. No bruits. Normal carotid upstrokes bilaterally. Cardiac: PMI was nonpalpable. No ventricular heave. Regular. Normal S1-S2. 1/6 systolic murmur. No rubs, or gallops. Pulmonary: Coarse breath sounds bilaterally, predominantly at the bases. Bilateral expiratory wheezing. Abdomen: Obese Soft, nontender, nondistended, with normoactive bowel sounds. No bruits noted. Extremities: 2+ radial pulses bilaterally. 2+ posterior tibialis pulses bilaterally. . Trace to 1+ bilateral lower extremity edema to the knees. 1+ bilateral lower extremity edema above the knees. No cyanosis. Psychiatric: Affect appears appropriate. Results & Data Vital Signs (Past 12 Hours) Vital Signs Temp Pulse Resp BP Pulse Ox 08/13/19 11:33 36.4 C L 58 L 20 159/69 H 92 08/13/19 11:06 59 L 18 96 08/13/19 07:15 58 L 18 93 08/13/19 07:11 36.5 C 56 L 20 153/69 H 96 08/13/19 03:25 36.6 C 57 L 18 166/71 H 94 Laboratory Results Laboratory Results - last 24 hr 08/13/19 08/13/19 08/13/19 06:14 06:14 06:14 WBC 7.95 RBC 2.76 L Hgb 9.4 L Hct 29.0 L MCV 105.1 H MCH 34.1 H MCHC 32.4 RDW Std Deviation 68.0 H RDW Coeff of Marta 17.9 H Plt Count 192 MPV 12.9 H Immature Gran % (Auto) 1.4 Neut % (Auto) 70.5 Lymph % (Auto) 21.0 [place] % (Auto) 7.0 Eos % (Auto) 0.0 Baso % (Auto) 0.1 Immature Gran # (Auto) 0.11 H Neut # (Auto) 5.60 Lymph # (Auto) 1.67 [place] # (Auto) 0.56 Eos # (Auto) 0.00 Baso # (Auto) 0.01 Absolute Nucleated RBC 0.02 H Nucleated RBC % (auto) 0.2 PT 20.3 H INR 2.1 H Sodium 139 Potassium 4.5 Chloride 101 Carbon Dioxide 33 H Anion Gap 5.0 BUN 42 H Creatinine 1.06 Est Cr Clr Drug Dosing 50.2 Est GFR ( Amer) 54.7 Est GFR (Non-Af Amer) 47.2 BUN/Creatinine Ratio 39.8 H Glucose 190 H Calcium 9.4 Diagnostic Findings ECGs personally reviewed: ECG 07/15/2019 at 3:57 a.m.: Atrial fibrillation. RBBB. 141 bpm. ECG 06/03/2019 at 4:05 p.m.: Probable sinus tachycardia with PACs and PVC Echo 07/15/2019: Reported as normal LV systolic function and wall motion. EF 55-60%. Mild LVH. Mild biatrial dilation. No significant valvular abnormalities visualized. Chest x-ray 07/30/2019: Stable interstitial thickening and basilar opacities, likely atelectatic, per Radiology. Chest CT 07/30/2019: Progressive bilateral lower lobe atelectasis/consolidation with associated mild bronchiectasis. Mildly prominent mediastinal lymph nodes, likely reactive. Interstitial lung disease versus interstitial edema per Radiology. Medications Administered Current Inpatient Medications Acetaminophen (Tylenol) 1,000 mg PO HS [facility] Stop: 08/29/19 20:59 Last Admin: 08/12/19 21:04 Dose: 1,000 mg Documented by: Acetaminophen (Tylenol) 325 - 650 mg PO Q6H PRN PRN Reason: Fever/pain Stop: 08/29/19 18:06 Last Admin: 08/12/19 14:12 Dose: 650 mg Documented by: Albuterol (Ventolin Hfa) 2 puffs INH Q4H PRN PRN Reason: COPD Stop: 08/29/19 18:06 Last Admin: 08/08/19 21:25 Dose: 2 puffs Documented by: Albuterol (Duoneb) 3 ml NEB Q4H PRN PRN Reason: Dyspnea Stop: 09/07/19 03:08 Last Admin: 08/08/19 03:47 Dose: 3 ml Documented by: Albuterol (Duoneb) 3 ml NEB QIDR [facility] Stop: 09/11/19 06:59 Last Admin: 08/13/19 11:02 Dose: 3 ml Documented by: Allopurinol (Zyloprim) 100 mg PO QAM [facility] Stop: 08/30/19 08:59 Last Admin: 08/13/19 08:44 Dose: 100 mg Documented by: Arformoterol Tartrate (Brovana Neb) 15 mcg INH BIDR [facility] Stop: 09/08/19 18:59 Last Admin: 08/13/19 07:13 Dose: 15 mcg Documented by: Artificial Tears (Artificial Tears) 1 drops OP PRN PRN PRN Reason: DRY EYES Stop: 09/06/19 10:49 Bisacodyl (Dulcolax) 10 mg IL DAILY PRN PRN Reason: Constipation Stop: 08/29/19 18:06 Carvedilol (Coreg) 3.125 mg PO BID [facility] Stop: 08/29/19 20:59 Last Admin: 08/13/19 08:44 Dose: 3.125 mg Documented by: Diclofenac Sodium (Voltaren 1% Top) 2 appln EXT BID [facility] Stop: 08/29/19 20:59 Last Admin: 08/13/19 08:40 Dose: 2 appln Documented by: Duloxetine HCl (Cymbalta) 30 mg PO QPM [facility] Stop: 08/29/19 20:59 Last Admin: 08/12/19 21:03 Dose: 30 mg Documented by: Fentanyl (Duragesic) 25 mcg TD Q3D@0900 [facility] Stop: 08/14/19 08:59 Last Admin: 08/12/19 15:57 Dose: 25 mcg Documented by: Fentanyl (Duragesic) 12 mcg TD Q3D@0900 [facility]; Protocol Stop: 08/17/19 08:59 Last Admin: 08/12/19 09:03 Dose: 12 mcg Documented by: Gabapentin (Neurontin) 200 mg PO BID@0830,1630 [facility] Stop: 08/30/19 08:29 Last Admin: 08/13/19 08:37 Dose: 200 mg Documented by: Gabapentin (Neurontin) 600 mg PO HS [facility] Stop: 08/29/19 20:59 Last Admin: 08/12/19 21:49 Dose: 600 mg Documented by: Guaifenesin/Codeine Phosphate (Robitussin-Ac Sugar Free) 10 ml PO Q6H PRN PRN Reason: Cough Stop: 09/11/19 22:20 Azithromycin 500 mg/ Dextrose 255 mls @ 125 mls/hr IV Q24H [facility] Stop: 08/16/19 14:59 Last Infusion: 08/12/19 16:54 Dose: Infused Documented by: Cefepime HCl 2,000 mg/ Syringe 20 mls @ 5.5 mls/min IV Q12H [facility]; Protocol Stop: 08/16/19 15:59 Last Admin: 08/13/19 04:34 Dose: 5.5 mls/min Documented by: Methylprednisolone 40 mg/ (Syringe) 0.64 mls @ 1.5 mls/min IV BID [facility] Stop: 09/08/19 20:59 Last Admin: 08/13/19 08:43 Dose: 1.5 mls/min Documented by: Furosemide 40 mg/ Syringe 4 mls @ 4 mls/min IV ONE ONE Stop: 08/13/19 13:22 Levothyroxine Sodium (Synthroid) 88 mcg PO DAILYBB [facility] Stop: 09/05/19 06:29 Last Admin: 08/13/19 05:37 Dose: 88 mcg Documented by: Miconazole Nitrate (Desenex) 1 appln EXT PRN PRN PRN Reason: NURSING DECISION Stop: 09/08/19 22:31 Last Admin: 08/09/19 22:48 Dose: 1 appln Documented by: Miscellaneous (Fentanyl Patch Remove & Waste) 1 ea N/A Q72H [facility] Stop: 08/30/19 08:58 Last Admin: 08/12/19 09:01 Dose: 1 ea Documented by: Miscellaneous (Fentanyl Patch Check Placement) 1 ea N/A QS [facility] Stop: 08/30/19 00:00 Last Admin: 08/13/19 08:36 Dose: 1 ea Documented by: Miscellaneous (Fentanyl Patch Check Placement) 1 ea N/A QS [facility] Stop: 08/30/19 00:00 Last Admin: 08/13/19 08:36 Dose: 1 ea Documented by: Montelukast Sodium (Singulair) 10 mg PO PM [facility] Stop: 08/29/19 20:59 Last Admin: 08/12/19 21:04 Dose: 10 mg Documented by: Multi-Ingredient Cream (Hydrocerin) 1 appln EXT BID [facility] Stop: 09/02/19 20:59 Last Admin: 08/13/19 08:37 Dose: 1 appln Documented by: Multivitamins (Multivitamin Tab) 1 tab PO QAM [facility] Stop: 08/30/19 08:59 Last Admin: 08/13/19 08:39 Dose: 1 tab Documented by: Oxycodone HCl (Roxicodone Immediate Rel) 5 mg PO DAILY [facility] Stop: 08/14/19 08:59 Last Admin: 08/13/19 08:43 Dose: 5 mg Documented by: Oxycodone HCl (Roxicodone Immediate Rel) 5 mg PO QAM PRN PRN Reason: Moderate Stop: 08/13/19 18:06 Oxycodone HCl (Roxicodone Immediate Rel) 10 mg PO HS PRN PRN Reason: Pain management Stop: 08/13/19 18:06 Last Admin: 08/07/19 05:09 Dose: 10 mg Documented by: Pantoprazole Sodium (Protonix) 40 mg PO QAM [facility] Stop: 08/30/19 08:59 Last Admin: 08/13/19 08:38 Dose: 40 mg Documented by: Polyethylene Glycol (Miralax Powder Packet) 17 gm PO PM [facility] Stop: 08/29/19 20:59 Last Admin: 08/12/19 21:03 Dose: 17 gm Documented by: Ropinirole HCl (Requip) 1 mg PO QID [facility] Stop: 08/29/19 20:59 Last Admin: 08/13/19 12:51 Dose: 1 mg Documented by: Sodium Biphosphate/Sodium Phosphate (Fleet Enema) 132 ml [place] DAILY PRN PRN Reason: Constipation Stop: 08/29/19 18:06 Sodium Chloride (Sodium Chlor 7% Neb Solution) 4 ml INH BIDR [facility] Stop: 09/08/19 18:59 Last Admin: 08/13/19 07:13 Dose: 4 ml Documented by: Tiotropium [place] (Spiriva) 1 puffs INH QAM [facility] Stop: 08/30/19 08:59 Last Admin: 08/13/19 08:39 Dose: 1 puffs Documented by: Warfarin Sodium (Coumadin) 7.5 mg PO DAILY@1600 [facility] Stop: 09/10/19 15:59 Last Admin: 08/12/19 15:55 Dose: 7.5 mg Documented by: PG Care Time/CCT Total # of Minutes Spent Total Time Spent with Patient: Total time spent is greater than 50% in coordination of care (as documented) at patient's floor/unit and/or counseling patient: (1) Hypertension Hypertension type: essential hypertension Qualified Code(s): I10 - Essential (primary) hypertension
[2019-08-13] MEDS ORDERED: FUROSEMIDE 40 MG in SYRINGE 0 ML IV ONE (13:30)
[2019-08-13] MEDS: AZITHROMYCIN 500 MG in DEXTROSE 5% 250 ML IV SCH (14:23)
--- NOTE | 2019-08-13 14:47 | Pulmonology Progress Note ---
Date of Service August 13, 2019 Assessment & Plan (1) Healthcare associated bacterial pneumonia: Feeling better than yesterday. She does state that breathing has improved a little bit. Continue the course of antibiotics and start tapering steroids. Continue with guaifenesin with codeine for cough as needed. There is bilateral lower lobe air bronchograms appreciated on CAT scan 07/30/2019 with areas of bronchiectasis. This could very well be secondary to chronic aspiration. There is a component of mild pulmonary vascular congestion too Continue with diuresis as tolerated. Amiodarone discontinued by cardiology. (2) Chronic respiratory failure with hypoxia: Continue with oxygen supplementation to keep oxygen between 80 to 92%. On 4 L oxygen at home. Patient is a non smoker. There is hyperinflation appreciated on the CAT scan. I would c/w LABA/ICS and LAMA treating Airway disease. (3) History of pulmonary embolism: Was on warfarin at home. Antic regulation were held because of thrombocyt openia. Warfarin to be restarted thrombocytopenia resolved. (4) Hypothyroid: (5) Obesity (BMI 30.0-34.9): (6) CARLITOS (obstructive sleep apnea): Needs to be compliant with BiPAP. BiPAP nightly and as needed shortness of breath. Subjective Patient seen and examined at bedside. No acute distress, no adverse events overnight. Patient feeling better than yesterday. Shortness of breath is improved. Cough is decreased in intensity. Patient does complain of difficulty swallowing sometimes with choking sensation. Which is improved as per the patient. Review of Systems Review of Systems: All systems reviewed & are unremarkable except as noted in HPI & below Physical Exam Physical Exam: Constitutional: No acute distress HEENT: EOMI, PERRLA, thick neck Respiratory system: Decreased Air entry bilaterally, no wheeze, no rhonchi, no crackles CVS: S1-S2 positive, no murmurs or gallops Abdomen: Soft, nontender, nondistended, positive bowel sounds x4 Extremities: +2 pulses bilaterally radialis/ dorsalis pedis, +1 edema, no cyanosis Neuro: Awake alert oriented x3 Psych: Normal mood and affect Results & Data Vital Signs (Past 12 Hours) Vital Signs Temp Pulse Resp BP Pulse Ox 08/13/19 11:33 36.4 C L 58 L 20 159/69 H 92 08/13/19 11:06 59 L 18 96 08/13/19 07:15 58 L 18 93 08/13/19 07:11 36.5 C 56 L 20 153/69 H 96 08/13/19 03:25 36.6 C 57 L 18 166/71 H 94 PG Care Time/CCT Total # of Minutes Spent Total Time Spent with Patient: Total time spent is greater than 50% in coordination of care (as documented) at patient's floor/unit and/or counseling patient:
[2019-08-13] MEDS: WARFARIN SOD 7.5 MG TAB PO SCH (17:04)
[2019-08-13] MEDS: DULOXETINE HCL 30 MG CAP PO SCH (20:17)
[2019-08-13] MEDS: GABAPENTIN 600 MG TAB PO SCH (20:18)
[2019-08-13] MEDS: MONTELUKAST SODIUM 10 MG TABLET PO SCH (20:18)
[2019-08-13] MEDS: POLYETHYLENE (MIRALAX) 17 GM PACK PO SCH (20:22)
[2019-08-13] MEDS: ACETAMINOPHEN 500 MG TAB PO SCH (20:22)
--- NOTE | 2019-08-14 | Hospitalist Progress Note ---
Date of Service August 13, 2019 Assessment & Plan (1) Chronic respiratory failure with hypoxia: Acute on chronic exacerbation. Now back to baseline O2 requirement. Multifactorial from obesity hypoventilation, healthcare acquired pneumonia, prior PE, prior RUL wedge resection for lung cancerpulmonary edema ?interstitial lung disease on CT. Less likely amiodarone induced fibrosis given short duration of use - however concern this did appear to cause an immune related thrombocytopenia. (2) Acute on chronic diastolic CHF (congestive heart failure): Weight decreased 299 lb to 289 lb this admission Continue Coreg as prescribed. Consulted cardiology - appreciate recommendations, IV lasix 40mg given today Restart 40mg PO in AM (3) Pneumonia: - Completed initial course Ceftriaxone & Vanc then Doxy x 3 days but worsening SOB and pulm consult started cefepime and azithromycin on 08/09 for HAP - Solu-medrol 40 mg IV BID -> switch to prenisone taper for anticipated discharge tomorrow. - Duonebs q4hWA, Brovana neb BID all scheduled. 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 Improved with both stopping amiodarone and using steroids so unclear of true diagnosis. Concern for longer-standing MDS but unlikely cause of acute thrombocytopenia which she will follow up with heme/onc as an outpatient (previously refused bone marrow biopsy). (5) Epistaxis: Resolved. Secondary to thrombocytopenia and supratherapeutic INR (6) Anemia: Hgb ~8-9 during this admission, baseline ~9-10 per previous labs. Macrocytic anemia -- folate & B12 WNL on labs in May 2019. Multifactorial with CKD, chronic disease, MDS (high MCV, B12 910, folate 23.71 in May) (7) Elevated INR: Resolved INR was >10.4 on admission in setting of warfarin with amiodarone. Now restarted warfarin without amiodarone since Plt improved. (8) Bone marrow disorder: Likely has underlying MDS based on CBC findings. F/U heme/onc O/P (9) Venous stasis: Cellulitis previously noted on bilat LE; now resolved. Completed course of Ceftriaxone, Vanc; currently receiving Cefepime as noted above for PNA. Eucerin cream for wound care/dry skin. (10) PAF (paroxysmal atrial fibrillation): Last pAF in setting of PNA and ICU admission. Continue Coreg as prescribed. Appreciate cardiology consult - no need for anti-arthymic at this time Continue warfarin, monitor INR (11) COPD (chronic obstructive pulmonary disease): With acute exacerbation never smoker - no prior PFTs in [facility] pulmonology management Switch to prednisone - Continue home inhalers as prescribed along with scheduled nebs. (12) Chronic low back pain: - Continue home pain regimen with Oxycodone and Fentanyl patch. (13) Stage III chronic kidney disease: - Renally dose all meds - Cr at baseline (14) Neuropathy: - Continue home Cymbalta and Gabapentin (15) Hypothyroid: - TSH is 9.87 (last few values also elevated) - increased to 88 mcg daily. - Repeat TSH in 4 weeks after discharge (16) RLS (restless legs syndrome): - Continue Requip (17) History of pulmonary embolism: - INR 2.1. Usual dose 5mg caused supratherapeutic INR when taken with amiodarone therefore suspect her usual dose will return to around 5mg daily as no longer on amiodarone - Doppler of bilat LE negative for DVT. (18) DVT prophylaxis: - SCDs; therapeutic INR. Dispo: Discharge to [facility] now transitioning to oral meds. As long as stable can go after lunch dose of cefepime given. Subjective Patient wondering if she can get out of hospital. Reports ongoing shortness of breath and wheezing but improving and closer to her baseline. Reports normal bowel movements. Continued cough but also improving. No chest pain. Review of Systems Review of Systems: All systems reviewed & are unremarkable except as noted in HPI & below Physical Exam Constitutional: well developed, + ill appearing (chronically) and + obese; no acute distress Eyes: + anicteric sclerae and PERRL ENMT: external ear and nose normal, oropharynx normal Neck: trachea midline and + thick neck Respiratory: normal respiratory effort and + prolonged expiratory phase; no respiratory distress and no cough (during exam) Auscultation: + diminished lung sounds (bibasal) and + crackles (bibasal); no rales and no wheezes Cardiovascular: Rate/Rhythm: regular rate and regular rhythm Heart Sounds: no murmur Extremities: + edema (chronic dermatitis changes 2+ to knees b/l) Gastrointestinal (Abdomen): Inspection/Auscultation: normal bowel sounds; abdomen not distended and no abdominal edema Percussion/Palpation: abdomen soft; abdomen nontender, no guarding and abdomen not rigid Musculoskeletal: no cyanosis or clubbing, extremities motor strength 5/5 Gait: normal gait Neurologic: moves all extremities and awake; no focal motor deficits Motor/Sensory: no sensory deficit Psychiatric: A+Ox3, euthymic affect Results & Data Vital Signs (Past 12 Hours) Vital Signs Temp Pulse Pulse Resp BP Pulse Ox 08/13/19 23:50 98.1 F 57 L 18 160/72 H 94 08/13/19 23:11 77 22 96 08/13/19 19:24 80 18 95 08/13/19 19:19 97.5 F L 61 24 158/67 H 95 08/13/19 15:28 74 18 93 08/13/19 15:16 97.7 F 59 L 18 162/52 H 94 PG Care Time/CCT Total # of Minutes Spent Total Time Spent with Patient: Total time spent is greater than 50% in coordination of care (as documented) at patient's floor/unit and/or counseling patient: (1) Pneumonia Laterality: unspecified laterality Lung location: unspecified part of lung Pneumonia type: due to unspecified organism Qualified Code(s): J18.9 - Pneumonia, unspecified organism (2) Anemia Anemia type: unspecified type Qualified Code(s): D64.9 - Anemia, unspecified (3) COPD (chronic obstructive pulmonary disease) COPD type: COPD with acute exacerbation Qualified Code(s): J44.1 - Chronic obstructive pulmonary disease with (acute) exacerbation (4) Chronic low back pain Back pain laterality: unspecified Sciatica presence: unspecified whether sciatica present Qualified Code(s): M54.5 - Low back pain; G89.29 - Other chronic pain
[2019-08-14] MEDS: CHECK FENTANYL PATCH PLACEMENT SCH ×8 (00:24→23:58)
[2019-08-14] MEDS: CEFEPIME 2,000 MG in SYRINGE 7.5 ML IV SCH ×2 (04:19→16:00)
[2019-08-14] MEDS: LEVOTHYROXINE SODIUM 88 MCG TABLET PO SCH (05:57)
[2019-08-14] MEDS: ARFORMOTEROL TART 15MCG/2ML VIAL INH SCH (07:37)
[2019-08-14] MEDS: ALBUT/IPRATROP 3MG/0.5MG NEB 3 ML VIAL NEB SCH ×4 (07:38→18:47)
[2019-08-14 08:02] LABS: Basophils # (auto) 0.01 K/uL (0-0.2); Basophils % (auto) 0.1 %; Hematocrit (blood only) 29.3 % (37-47); Hemoglobin 9.5 g/dL (12.0-16.0); Immature Granulocytes % (auto) 1.3 %; Lymphocytes # (auto) 1.56 K/uL (1.2-3.4); Mean Corpuscular Hemoglobin 33.9 pg (25-34); Mean Corpuscular Hgb Conc 32.4 g/dL (32-36); Mean Corpuscular Volume 104.6 fL (80-100); Monocytes # (auto) 0.82 K/uL (0.11-0.59); Monocytes % (auto) 10.5 %; Neutrophils % (auto) 68.1 %; Platelet Count 233 K/uL (130-400); RDW Coefficient of Variation 17.5 % (11.5-14.5); RDW Standard Deviation 67.6 fL (36.4-46.3); White Blood Count 7.79 K/uL (4.8-10.8)
[2019-08-14 08:23] LABS: Prothrombin Time 46.3 Seconds (9.0-12.0)
[2019-08-14 08:25] LABS: INR 5.1 (0.9-1.1)
[2019-08-14 08:34] LABS: BUN Creatinine Ratio 41.3 (10-20); Calcium 9.6 mg/dl (8.5-10.1); Creatinine Clr Calc Pharmacy 53.1 ml/min; Est GFR (African American) 58.7; Est GFR (Non-African American) 50.6; Potassium 4.3 mmol/L (3.5-5.1)
[2019-08-14] MEDS: ROPINIROLE HCL 1 MG TABLET PO SCH ×4 (09:29→20:25)
[2019-08-14] MEDS: carvediloL 3.125 MG TAB PO SCH ×2 (09:29→20:24)
[2019-08-14] MEDS: MULTIVITAMIN TAB PO SCH (09:30)
[2019-08-14] MEDS: allopurinoL 100 MG TAB PO SCH (09:30)
[2019-08-14] MEDS: PANTOprazole 40 MG TAB PO SCH (09:30)
[2019-08-14] MEDS: GABAPENTIN 100 MG CAP PO SCH ×2 (09:31→15:57)
[2019-08-14] MEDS: predniSONE 20 MG TAB PO SCH (09:31)
[2019-08-14] MEDS: FUROSEMIDE 40 MG TAB PO SCH (09:32)
[2019-08-14] MEDS: EUCERIN CR 120 GM JAR EXT SCH ×2 (09:32→20:24)
[2019-08-14] MEDS: DICLOFENAC SOD 1% GEL 100 GM TUBE EXT SCH ×2 (09:33→20:26)
[2019-08-14] MEDS: ALBUTEROL HFA 8 GM INHALER INH PRN (09:35)
[2019-08-14] MEDS: TIOTROPIUM BROMIDE 5 PUFF/90 MCG INH INH SCH (09:45)
--- NOTE | 2019-08-14 12:56 | Cardiology Progress Note ---
Date of Service August 14, 2019 Assessment & Plan (1) PAF (paroxysmal atrial fibrillation): Examination today, and EKG from yesterday both suggests sinus rhythm. Amiodarone has been placed on hold as this medication may be playing a role in her thrombocytopenia. Antiarrhythmic therapy was initiated in early July. [place] [id number] back in May prior to initiation of amiodarone. Coumadin currently on hold at her INR increased to 5.1. (2) Chronic diastolic CHF (congestive heart failure): She continues to receive Lasix 40 mg daily. (3) Hypertension: She does have a history of mild left ventricular hypertrophy. Borderline control on current medical regimen. (4) Chronic respiratory failure: The patient is on chronic oxygen therapy. Etiology is multifactorial but most likely related to her chronic pulmonary disease and her diastolic CHF. Continue daily diuretics. Subjective The patient is resting comfortably in the bedside chair without complaints of chest pain, dyspnea, or palpitations. Physical Exam Physical Exam: In general this is a morbidly obese white female lying supine in bed without complaints. HEENT exam is negative. Neck is supple with full ca rotid upstrokes. No obvious bruits. Jugular venous pressure is difficult to assess. Cardiovascular exam reveals regular rhythm with distant heart sounds. No obvious murmurs. Lungs notes scattered rhonchi but no rales. Breath sounds are distant. Abdomen is obese. Extremities reveal 1+ pitting edema to the knees bilaterally. Results & Data Vital Signs (Past 12 Hours) Vital Signs Temp Pulse Pulse Resp BP Pulse Ox 08/14/19 11:08 59 L 20 97 08/14/19 11:07 36.5 C 65 20 161/66 H 97 08/14/19 07:42 55 L 16 98 08/14/19 07:11 36.9 C 58 L 20 168/73 H 95 08/14/19 04:21 36.5 C 59 L 18 158/51 H 94 08/14/19 01:17 48 L 17 97 Diagnostic Findings EKG performed yesterday noted sinus bradycardia and an incomplete right bundle- branch block. PG Care Time/CCT Total # of Minutes Spent Total Time Spent with Patient: Total time spent is greater than 50% in coordination of care (as documented) at patient's floor/unit and/or counseling patient: (1) Hypertension Hypertension type: essential hypertension Qualified Code(s): I10 - Essential (primary) hypertension
--- NOTE | 2019-08-14 13:56 | Pulmonology Progress Note ---
Date of Service August 14, 2019 Assessment & Plan (1) Healthcare associated bacterial pneumonia: Feeling better than yesterday. She does state that breathing has improved a little bit. DC antibiotics and taper steroids. Continue with guaifenesin with codeine for cough as needed. There is bilateral lower lobe air bronchograms appreciated on CAT scan 07/30/2019 with areas of bronchiectasis. This could very well be secondary to chronic aspiration. There is a component of mild pulmonary vascular congestion too Continue with diuresis as tolerated. Amiodarone discontinued by cardiology. No further interventions from pulmonary perspective. (2) Chronic respiratory failure with hypoxia: Continue with oxygen supplementation to keep oxygen between 80 to 92%. On 4 L oxygen at home. Patient is a non smoker. There is hyperinflation appreciated on the CAT scan. I would c/w LABA/ICS and LAMA treating Airway disease. (3) History of pulmonary embolism: Was on warfarin at home. Thrombocytopenia improved. (4) Hypothyroid: (5) Obesity (BMI 30.0-34.9): (6) CARLITOS (obstructive sleep apnea): Needs to be compliant with BiPAP. BiPAP nightly and as needed shortness of breath. Subjective Patient seen and examined. NAD, TEOFILO overnight. Patient complaining of cough again today. It's mostly when she is eating. States that she is not able to bring up the phlegm. Patient states Chest PT is helping her. Denies any headache, nausea, vomiting. No chest pain. Review of Systems Review of Systems: All systems reviewed & are unremarkable except as noted in HPI & below Physical Exam Lymphatic: no cervical or axillary lymphadenopathy Results & Data Vital Signs (Past 12 Hours) Vital Signs Temp Pulse Resp BP Pulse Ox 08/14/19 11:08 59 L 20 97 08/14/19 11:07 36.5 C 65 20 161/66 H 97 08/14/19 07:42 55 L 16 98 08/14/19 07:11 36.9 C 58 L 20 168/73 H 95 08/14/19 04:21 36.5 C 59 L 18 158/51 H 94 Laboratory Results 08/14/19 07:44 08/14/19 07:44 Intake & Output 08/12/19 08/13/19 08/14/19 08/15/19 06:59 06:59 06:59 06:59 Intake Total 1605 / 1605 1150 / 1150 1425 / 1425 475 / 475 Output Total 1175 / 1175 650 / 650 600 / 600 400 / 400 Balance 430 / 430 500 / 500 825 / 825 75 / 75 Weight 131.5 kg 134 kg 133.7 kg PG Care Time/CCT Total # of Minutes Spent Total Time Spent with Patient: Total time spent is greater than 50% in coordination of care (as documented) at patient's floor/unit and/or counseling patient:
[2019-08-14] MEDS ORDERED: PHARMACY GLYCEMIC MGMT CONSULT PRN (14:13)
[2019-08-14] MEDS ORDERED: GLUCOSE 40% GEL 15 GM TUBE PO PRN (14:30)
[2019-08-14] MEDS ORDERED: DEXTROSE 50% 50 ML SYRINGE IV PRN (14:30)
[2019-08-14] MEDS ORDERED: GLUCAGON FOR INJ 1 MG VIAL SQ PRN (14:30)
[2019-08-14] MEDS ORDERED: GLUCOSE 10 TABS/TUBE PO PRN (14:30)
[2019-08-14] MEDS ORDERED: CARBOHYDRATES FOR HYPOGLYCEMIA PO PRN (14:30)
--- NOTE | 2019-08-14 14:54 | Pharmacy Report ---
Glycemic Control Consultation - Date of Service August 14, 2019 - Scope Scope: Glycemic Pharmacist consulted by Dr Garcia on 08/14 for glycemic control and to write orders per [facility] inpatient glycemic control protocol - Objective Weight: 133.7 kg Accuchecks BSG (last 24hrs): 08/14/19 07:44 Glucose 245 H Laboratory Data (last 24hrs): 08/14/19 07:44 Potassium 4.3 Carbon Dioxide 32 Anion Gap 6.0 Creatinine 1.00 Est Cr Clr Drug Dosing 53.1 - Recent Pertinent Medications Outpatient Anti-diabetic Regimen: * n/a * A1c = 5.6 % 06/04/19 The patient is currently receiving: * No antihyperglycemic agents Risk Factors for Insulin Resistance: * Steroids: Solu-medrol 40 mg BID from 08/09 to 08/13, now on prednisone 40 mg qAM * Diet: - Assessment & Plan Assessment & Plan: ASSESSMENT: * 88 y/o female with no history of diabetes, borderline A1c of 5.6% * She has been on IV steroids since 08/09, with fasting BSGs slowly increasing. This AM it was 245 mg/dL. * No postprandial BSGs are available since only fasting BSGs have been obtained. * Of note, fasting BSG PRIOR to steroid initiation was 97 mg/dL * Patient with BSG elevation due to steroids. Since these have been changed to once daily prednisone, I expect only postprandial BSGs to be elevated moving forward; therefore, will not initiate any basal insulin at this time. PLAN FOR INPATIENT GLYCEMIC CONTROL: * Bolus insulin * NovoLog per scale ACHS or Q6hrs while NPO * Goal Range: Low 110 mg/dL - High 150 mg/dL * Correction Factor: 30 mg/dL/unit * Nutritional / Prandial insulin per carb ratio of 1 unit per 7 grams CHO consumed * Please note that the plan above was derived based on current level of insulin resistance and hospital stress. These recommendations are appropriate for inpatient admission only. Plan of care upon discharge will need to be reassessed to avoid potential outpatient hypo/hyperglycemia. Thank you.
[2019-08-14] MEDS ORDERED: WARFARIN SOD 2 MG TAB PO SCH (16:00)
--- NOTE | 2019-08-14 17:22 | XRay Report ---
XR chest 2V routine CLINICAL HISTORY: Increasing shortness of breath. COMPARISON STUDY: Chest CT July 30, 2019. Chest radiograph August 13, 2019. FINDINGS: Lumbar spine hardware is partially imaged. There are abdominal surgical clips. No pneumotho rax or pleural effusion is identified. Cardiomegaly is unchanged. There's no evidence for pulmonary e shanae. Minimal bibasilar opacities are unchanged and favor atelectasis. Old right chest wall deformity is present. Calcified right hilar nodes are noted. IMPRESSION: No change in appearance of the chest. Bibasilar opacities which favor atelectasis. No ev idence for pulmonary edema. Electronically signed by: Shailesh Luu M.D. 08/14/2019 5:21 PM
[2019-08-14] MEDS: INSULIN ASPART 100 UNITS/ML 3 ML PEN SC SCH ×2 (17:27→20:27)
[2019-08-14] MEDS: DULOXETINE HCL 30 MG CAP PO SCH (20:24)
[2019-08-14] MEDS: GABAPENTIN 600 MG TAB PO SCH (20:24)
[2019-08-14] MEDS: POLYETHYLENE (MIRALAX) 17 GM PACK PO SCH (20:24)
[2019-08-14] MEDS: MONTELUKAST SODIUM 10 MG TABLET PO SCH (20:25)
[2019-08-14] MEDS: ACETAMINOPHEN 500 MG TAB PO SCH (20:31)
--- NOTE | 2019-08-14 23:14 | Hospitalist Progress Note ---
Date of Service August 14, 2019 Assessment & Plan (1) Chronic respiratory failure with hypoxia: Acute on chronic exacerbation. Now back to baseline O2 requirement. Multifactorial from obesity hypoventilation, bronchiectasis, healthcare acquired pneumonia, prior PE, prior RUL wedge resection for lung cancer, pulmonary edema ?interstitial lung disease on CT. Less likely amiodarone induced fibrosis given short duration of use - however concern this did appear to cause an immune related thrombocytopenia. Appears more short of breath today and patient feels in hindsight may have been worse after her chest pain. Troponin added to morning labs - subsequently negative. Repeat EKG - questionable changes as baseline poor, more evident of RBBB. Repeat CXR unchanged. Discussed with nursing staff and suspect acutely appeared worse just because she had been up and moving prior to my examination which appears to collaborate with pulmonology note suggesting improvement. (2) Acute on chronic diastolic CHF (congestive heart failure): CXR - no pulmonary edema Continue Coreg as prescribed Restart 40mg PO in AM (3) Pneumonia: - Completed initial course Ceftriaxone & Vanc then Doxy x 3 days but worsening SOB and pulm consult started cefepime and azithromycin on 08/09 for HAP - Solu-medrol 40 mg IV BID -> switch to prenisone taper for anticipated discharge tomorrow. - Duonebs q4hWA, Brovana neb BID all scheduled. 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 Improved with both stopping amiodarone and using steroids so unclear of true diagnosis. Concern for longer-standing MDS but unlikely cause of acute thrombocytopenia which she will follow up with heme/onc as an outpatient (previously refused bone marrow biopsy). (5) Anemia: Macrocytic anemia Hgb ~8-9 during this admission, baseline ~9-10 per previous labs. 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 F/U heme/onc O/P (7) Venous stasis: Cellulitis previously noted on bilat LE; now resolved. Eucerin cream for wound care/dry skin. (8) PAF (paroxysmal atrial fibrillation): Last pAF in setting of PNA and ICU admission. Continue Coreg as prescribed. Appreciate cardiology consult - no need for anti-arrhythmic at this time Aim INR 2-3 (9) COPD (chronic obstructive pulmonary disease): With acute exacerbation Unclear diagnosis never smoker - no prior PFTs in [facility] pulmonology management Switch to prednisone - Continue home inhalers as prescribed along with scheduled nebs as hyperinflation on CT. F/U PFTs O/P (10) Chronic low back pain: - Continue home pain regimen with Oxycodone and Fentanyl patch. (11) Stage III chronic kidney disease: - Renally dose all meds - Cr at baseline (12) Neuropathy: - Continue home Cymbalta and Gabapentin (13) Hypothyroid: - TSH is 9.87 (last few values also elevated) - increased to 88 mcg daily. - Repeat TSH in 4 weeks after discharge (14) RLS (restless legs syndrome): - Continue Requip (15) History of pulmonary embolism: - INR 5.1. Usual dose 5mg caused supratherapeutic INR when taken with amiodarone. 7.5mg also caused very quikly a supratherapeutic INR therefore suspect sustained dose closer to 3mg. - Currently warfarin on hold due to supratherpeutic INR - Doppler of bilat LE negative for DVT. (16) Epistaxis: Resolved. Secondary to thrombocytopenia and supratherapeutic INR (17) DVT prophylaxis: - SCDs; supratherapeutic INR. Hold warfarin today. Can likely restart on discharge tomorrow Dispo: INR tomorrow. Given events today did not discharge her to [facility] but likely she can go home tomorrow if INR not excessively high. Subjective Patient reported episode of chest pain yesterday lasting for seconds while at rest. Initially she reported no change in her breathing afterwards but currently feels much more short of breath and is audibly wheezing more than previously. INR increased to 5.1 after x3 doses of 7.5mg (29th, 30th, 1st), no bleeding noted by patient. Review of Systems Review of Systems: All systems reviewed & are unremarkable except as noted in HPI & below Physical Exam Constitutional: well developed, + acute distress (increased shortness of breath), + ill appearing (chronically) and + morbidly obese Eyes: no conjunctival abnormality ENMT: external ear and nose normal, oropharynx normal Neck: trachea midline and + thick neck Respiratory: normal respiratory effort, + respiratory distress, + labored breathing, + uses accessory muscles and + prolonged expiratory phase Auscultation: + diminished lung sounds (bibasal), + crackles (bibasal) and + wheezes (expiratory throughout); no rales Cardiovascular: Rate/Rhythm: regular rate and regular rhythm Heart Sounds: no murmur Extremities: + edema (chronic dermatitis changes 2+ to knees b/l) Gastrointestinal (Abdomen): Inspection/Auscultation: normal bowel sounds; abdomen not distended and no abdominal edema Percussion/Palpation: abdomen soft; abdomen nontender, no guarding and abdomen not rigid Musculoskeletal: no cyanosis or clubbing, extremities motor strength 5/5 Gait: normal gait Skin: no rashes, warm and dry Neurologic: moves all extremities and awake; no focal motor deficits Motor/Sensory: no sensory deficit Psychiatric: A+Ox3, euthymic affect Results & Data Vital Signs (Past 12 Hours) Vital Signs Temp Pulse Pulse Resp BP Pulse Ox 08/14/19 22:13 58 L 24 99 08/14/19 19:23 97.5 F L 67 20 150/69 H 95 08/14/19 18:50 64 20 97 08/14/19 15:36 58 L 18 98 08/14/19 15:26 97.2 F L 61 20 156/75 H 92 PG Care Time/CCT Total # of Minutes Spent Total Time Spent with Patient: Total time spent is greater than 50% in coordination of care (as documented) at patient's floor/unit and/or counseling patient: (1) Pneumonia Laterality: unspecified laterality Lung location: unspecified part of lung Pneumonia type: due to unspecified organism Qualified Code(s): J18.9 - Pneumonia, unspecified organism (2) Anemia Anemia type: unspecified type Qualified Code(s): D64.9 - Anemia, unspecified (3) COPD (chronic obstructive pulmonary disease) COPD type: COPD with acute exacerbation Qualified Code(s): J44.1 - Chronic obstructive pulmonary disease with (acute) exacerbation (4) Chronic low back pain Back pain laterality: unspecified Sciatica presence: unspecified whether sciatica present Qualified Code(s): M54.5 - Low back pain; G89.29 - Other chronic pain
[2019-08-15] MEDS: LEVOTHYROXINE SODIUM 88 MCG TABLET PO SCH (06:23)
[2019-08-15 06:50] LABS: Basophils # (auto) 0.01 K/uL (0-0.2); Basophils % (auto) 0.1 %; Eosinophils # (auto) 0.03 K/uL (0-0.5); Eosinophils % (auto) 0.2 %; Hematocrit (blood only) 29.7 % (37-47); Hemoglobin 9.7 g/dL (12.0-16.0); Immature Granulocytes # (auto) 0.19 K/uL (0.00-0.02); Immature Granulocytes % (auto) 1.3 %; Lymphocytes # (auto) 3.16 K/uL (1.2-3.4); Lymphocytes % (auto) 22.2 %; Mean Corpuscular Hemoglobin 34.5 pg (25-34); Mean Corpuscular Hgb Conc 32.7 g/dL (32-36); Mean Corpuscular Volume 105.7 fL (80-100); Mean Platelet Volume 11.4 fL (7.4-10.4); Monocytes # (auto) 1.85 K/uL (0.11-0.59); Neutrophils # (auto) 8.98 K/uL (1.4-6.5); Neutrophils % (auto) 63.2 %; Platelet Count 273 K/uL (130-400); RDW Coefficient of Variation 17.3 % (11.5-14.5); Red Blood Count 2.81 M/uL (4.2-5.4); White Blood Count 14.22 K/uL (4.8-10.8)
[2019-08-15] MEDS: ALBUT/IPRATROP 3MG/0.5MG NEB 3 ML VIAL NEB SCH ×4 (07:04→19:43)
[2019-08-15 07:08] LABS: Prothrombin Time 61.9 Seconds (9.0-12.0)
[2019-08-15 07:12] LABS: INR 6.9 (0.9-1.1)
[2019-08-15 07:23] LABS: BUN Creatinine Ratio 39.7 (10-20); Calcium 9.8 mg/dl (8.5-10.1); Creatinine Clr Calc Pharmacy 54.1 ml/min; Est GFR (African American) 60.1; Est GFR (Non-African American) 51.9
[2019-08-15] MEDS: ROPINIROLE HCL 1 MG TABLET PO SCH ×4 (08:16→20:33)
[2019-08-15] MEDS: PANTOprazole 40 MG TAB PO SCH (08:16)
[2019-08-15] MEDS: allopurinoL 100 MG TAB PO SCH (08:16)
[2019-08-15] MEDS: FUROSEMIDE 40 MG TAB PO SCH (08:16)
[2019-08-15] MEDS: MULTIVITAMIN TAB PO SCH (08:16)
[2019-08-15] MEDS: predniSONE 20 MG TAB PO SCH (08:16)
[2019-08-15] MEDS: carvediloL 3.125 MG TAB PO SCH ×2 (08:17→20:30)
[2019-08-15] MEDS: EUCERIN CR 120 GM JAR EXT SCH ×2 (08:17→20:32)
[2019-08-15] MEDS: GABAPENTIN 100 MG CAP PO SCH ×2 (08:41→17:10)
[2019-08-15] MEDS: fentaNYL 12 MCG/HR TDSY TD SCH (08:41)
[2019-08-15] MEDS: CHECK FENTANYL PATCH PLACEMENT SCH ×6 (08:44→23:47)
[2019-08-15] MEDS: DICLOFENAC SOD 1% GEL 100 GM TUBE EXT SCH ×2 (08:46→20:33)
[2019-08-15] MEDS: INSULIN ASPART 100 UNITS/ML 3 ML PEN SC SCH ×4 (09:05→20:37)
[2019-08-15] MEDS: fentaNYL 25 MCG/HR TDSY TD SCH ×2 (09:05→17:04)
[2019-08-15] MEDS: TIOTROPIUM BROMIDE 5 PUFF/90 MCG INH INH SCH (09:27)
--- NOTE | 2019-08-15 10:51 | Pharmacy Report ---
Pharmacy Glycemic Short Note 2 - Date of Service August 15, 2019 - Glycemic Short BSG Results (Last 24 hours): 08/14/19 08/14/19 08/15/19 16:43 19:49 06:38 Glucose 147 H POC Glucose 281 H 222 H OUTPATIENT ANTIDIABETIC REGIMEN: * N/A * A1c: 5.6% ASSESSMENT: * ALLISON is an 88 year old female with no history of diabetes (borderline A1c of 5.6%) * Pharmacy consulted for glycemic management on 08/14 due to steroid-induced hyperglycemia * Currently receiving prednisone 40 mg PO daily * BSGs ranging 222-281 mg/dL yesterday * Fasting BSG prior to taking steroids was 97 mg/dL on 08/09/19 * BSG this morning of 280 mg/dL was not a fasting BSG and was taken after patient ate breakfast PLAN FOR INPATIENT GLYCEMIC CONTROL: * Hold outpatient oral diabetes medications * Basal insulin * Will give one-time 30 unit dose of NPH (0.35 unit/kg based on adjusted body weight) to account for prednisone this AM * Bolus insulin - continue current parameters * NovoLog per scale ACHS or Q6hrs while NPO * Goal Range: Low 110 mg/dL - High 150 mg/dL * Correction Factor: 30 mg/dL/unit * Nutritional / Prandial insulin per carb ratio of 1 unit per 7 grams CHO co nsumed PLAN FOR DISCHARGE: * A1c of 5.6% is borderline for prediabetes. Lifestyle changes may be appropriate. * Patient's current hyperglycemia is likely steroid-induced. * Will assess steroid regimen and BSGs at time of discharge to see if further action warranted
[2019-08-15] MEDS ORDERED: NovoLIN-N (NPH) PER UNIT CHARGE SQ ONE (11:00)
[2019-08-15] MEDS ORDERED: CARBAMIDE PEROXIDE 6.5% 15 ML BTL OTR ONE (11:43)
--- NOTE | 2019-08-15 17:18 | Pulmonology Progress Note ---
Date of Service August 15, 2019 Assessment & Plan (1) Healthcare associated bacterial pneumonia: Breathing is improved. Coughing still persists on and off. Off antibiotics and taper steroids. Continue with guaifenesin with codeine for cough as needed. There is bilateral lower lobe air bronchograms appreciated on CAT scan 07/30/2019 with areas of bronchiectasis. This could very well be secondary to chronic aspiration. There is a component of mild pulmonary vascular congestion too Continue with diuresis as tolerated. Amiodarone discontinued by cardiology. No further interventions from pulmonary perspective. Will sign off. Recall if needed. (2) Chronic respiratory failure with hypoxia: Continue with oxygen supplementation to keep oxygen between 80 to 92%. On 4 L oxygen at home. Patient is a non smoker. There is hyperinflation appreciated on the CAT scan. I would c/w LABA/ICS inhaler (Advair) and LAMA(Spiriva) inhaler treating Airway disease. (3) History of pulmonary embolism: Was on warfarin at home. Thrombocytopenia improved. (4) Hypothyroid: (5) Obesity (BMI 30.0-34.9): (6) CARLITOS (obstructive sleep apnea): Needs to be compliant with BiPAP. BiPAP nightly and as needed shortness of breath. Subjective Patient seen and examined at bedside. Feels little bit better. Still complains of coughing on and off. Bringing up phlegm especially after the use of chest PT vest. Denies any chest pain, no headache, no nausea, no vomiting. Urinating well. Saturating 98% on 2 L nasal cannula with heart rate of 65 at rest. Review of Systems Review of Systems: All systems reviewed & are unremarkable except as noted in HPI & below Physical Exam Physical Exam: Constitutional: No acute distress, mild coughing HEENT: EOMI, PERRLA, thick neck Respiratory system: Decreased Air entry bilaterally, no wheeze, no rhonchi, no crackles CVS: S1-S2 positive, no murmurs or gallops Abdomen: Soft, nontender, nondistended, positive bowel sounds x4 Extremities: +2 pulses bilaterally radialis/ dorsalis pedis, +1 edema, no cyanosis Neuro: Awake alert oriented x3 Psych: Normal mood and affect Lymphatic: no cervical or axillary lymphadenopathy Results & Data Vital Signs (Past 12 Hours) Vital Signs Temp Pulse Resp BP Pulse Ox 10/03/19 15:49 36.6 C 61 16 157/72 H 96 08/15/19 15:24 67 18 94 08/15/19 11:50 36.6 C 64 13 131/62 94 08/15/19 10:54 61 16 95 08/15/19 07:08 36.6 C 55 L 20 155/72 H 98 Laboratory Results 08/15/19 06:38 08/15/19 06:38 PG Care Time/CCT Total # of Minutes Spent Total Time Spent with Patient: Total time spent is greater than 50% in coordination of care (as documented) at patient's floor/unit and/or counseling patient:
[2019-08-15] MEDS: DULOXETINE HCL 30 MG CAP PO SCH (20:31)
[2019-08-15] MEDS: CARBAMIDE PEROXIDE 6.5% 15 ML BTL OTR SCH (20:32)
[2019-08-15] MEDS: GABAPENTIN 600 MG TAB PO SCH (20:33)
[2019-08-15] MEDS: MONTELUKAST SODIUM 10 MG TABLET PO SCH (20:33)
[2019-08-15] MEDS: ACETAMINOPHEN 500 MG TAB PO SCH (20:40)
[2019-08-15] MEDS: POLYETHYLENE (MIRALAX) 17 GM PACK PO SCH (20:40)
--- NOTE | 2019-08-15 23:08 | Hospitalist Progress Note ---
Date of Service August 15, 2019 Assessment & Plan (1) Chronic respiratory failure with hypoxia: Acute on chronic exacerbation. Now back to baseline O2 requirement. Multifactorial from obesity hypoventilation, bronchiectasis, healthcare acquired pneumonia, prior PE, prior RUL wedge resection for lung cancer, pulmonary edema ?interstitial lung disease on CT. Less likely amiodarone induced fibrosis given short duration of use - however concern this did appear to cause an immune related thrombocytopenia. Shortness of breath episode yesterday likely due to seen after exertion. Patient has a lot of deconditioning. (2) Acute on chronic diastolic CHF (congestive heart failure): CXR - no pulmonary edema Continue Coreg as prescribed Continue home dose of lasix as per cardiology recommendations. (3) Pneumonia: Completed initial course Ceftriaxone & Vanc then Doxy x 3 days but worsening SOB and pulm consult started cefepime and azithromycin on 08/09 for HAP Continue prolonged prednisone taper Duonebs q4hWA, Brovana neb BID all scheduled. (4) Thrombocytopenia: Now resolved Likely Amiodarone induced vs. ITP. Improved with both stopping amiodarone and using steroids so unclear of true diagnosis. Concern for longer-standing MDS but unlikely cause of acute thrombocytopenia which she will follow up with heme/onc as an outpatient (previously refused bone marrow biopsy). (5) Anemia: Macrocytic anemia Hgb ~8-9 during this admission, baseline ~9-10 per previous labs. 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 F/U heme/onc O/P (7) Venous stasis: Cellulitis previously noted on bilat LE; now resolved. Eucerin cream for wound care/dry skin. (8) PAF (paroxysmal atrial fibrillation): Last pAF in setting of PNA and ICU admission. Continue Coreg as prescribed. Reviewed by cardiology this admission - no need for anti-arrhythmic at this time Aim INR 2-3 (9) COPD (chronic obstructive pulmonary disease): With acute exacerbation Unclear diagnosis never smoker - no prior PFTs in [facility] pulmonology management Switched to prednisone wtih anticipatory discharge tomorrow once INR improving. Continue home inhalers as prescribed along with scheduled nebs as hyperinflation on CT. F/U PFTs and pulmonology O/P (10) Chronic low back pain: - Continue home pain regimen with Oxycodone and Fentanyl patch. (11) Stage III chronic kidney disease: - Renally dose all meds - Cr at baseline (12) Neuropathy: - Continue home Cymbalta and Gabapentin (13) Hypothyroid: TSH is 9.87 (last few values also elevated) - increased to 88 mcg daily. Repeat TSH in 4 weeks after discharge (14) RLS (restless legs syndrome): - Continue Requip (15) History of pulmonary embolism: NR 6.9. Usual dose 5mg caused supratherapeutic INR when taken with amiodarone. 7.5mg also caused very quickly a supratherapeutic INR therefore suspect sustained dose closer to 3mg. Currently warfarin on hold due to supratherpeutic INR Doppler of bilat LE negative for DVT this admission (16) Epistaxis: Present on admission. Now resolved. Secondary to thrombocytopenia and supratherapeutic INR (17) DVT prophylaxis: - SCDs; supratherapeutic INR. Hold warfarin today. Can likely restart on discharge tomorrow Dispo: INR tomorrow. Plan for discharge back to [facility] tomorrow as long as INR coming down. Subjective No further episodes of chest pain. INR increased today to 6.9. No hemoptysis or melena. Episode of shortness of breath yesterday in hindsight likely due to patient seen after exertion. Troponins negative. When reviewed by pulmonology - reported continuing improvement. Review of Systems Review of Systems: All systems reviewed & are unremarkable except as noted in HPI & below Physical Exam Constitutional: well developed, + ill appearing (chronically) and + morbidly obese; + not well nourished and no acute distress Eyes: no conjunctival abnormality ENMT: Ears: + EAC abnormality (excessive cerumen) and + unable to visualize TM (right) Neck: trachea midline and + thick neck Respiratory: normal respiratory effort and + prolonged expiratory phase; no respiratory distress, no labored breathing and does not use accessory muscles Auscultation: + diminished lung sounds (bibasal) and + crackles (bibasal); no rales and no wheezes Cardiovascular: Rate/Rhythm: regular rate and regular rhythm Heart Sounds: no murmur Extremities: + edema (chronic dermatitis changes 2+ to knees b/l) Gastrointestinal (Abdomen): Inspection/Auscultation: normal bowel sounds; abdomen not distended and no abdominal edema Percussion/Palpation: abdomen soft; abdomen nontender, no guarding and abdomen not rigid Musculoskeletal: Gait: normal gait Skin: no rashes, warm and dry (chronic venous deramtitis changes of lower limbs b/l) Neurologic: moves all extremities and awake; no focal motor deficits Motor/Sensory: no sensory deficit Psychiatric: A+Ox3, euthymic affect Results & Data Vital Signs (Past 12 Hours) Vital Signs Temp Pulse Resp BP Pulse Ox 08/15/19 19:43 63 16 97 08/15/19 19:05 98.1 F 63 19 110/47 L 96 08/15/19 15:49 97.9 F 61 16 157/72 H 96 08/15/19 15:24 67 18 94 08/15/19 11:50 97.9 F 64 13 131/62 94 PG Care Time/CCT Total # of Minutes Spent Total Time Spent with Patient: Total time spent is greater than 50% in coor dination of care (as documented) at patient's floor/unit and/or counseling patient: (1) Chronic low back pain Back pain laterality: unspecified Sciatica presence: unspecified whether sciatica present Qualified Code(s): M54.5 - Low back pain; G89.29 - Other chronic pain (2) Anemia Anemia type: unspecified type Qualified Code(s): D64.9 - Anemia, unspecified (3) COPD (chronic obstructive pulmonary disease) COPD type: COPD with acute exacerbation Qualified Code(s): J44.1 - Chronic obstructive pulmonary disease with (acute) exacerbation (4) Pneumonia Laterality: unspecified laterality Lung location: unspecified part of lung Pneumonia type: due to unspecified organism Qualified Code(s): J18.9 - Pneumonia, unspecified organism
[2019-08-16] MEDS: ACETAMINOPHEN 325 MG TAB PO PRN (00:33)
[2019-08-16] MEDS: LEVOTHYROXINE SODIUM 88 MCG TABLET PO SCH (05:55)
[2019-08-16] MEDS: ALBUT/IPRATROP 3MG/0.5MG NEB 3 ML VIAL NEB SCH ×3 (07:08→15:47)
[2019-08-16] MEDS ORDERED: NovoLIN-N (NPH) PER UNIT CHARGE SQ SCH (07:30)
[2019-08-16 07:32] LABS: INR 4.3 (0.9-1.1)
[2019-08-16] MEDS: INSULIN ASPART 100 UNITS/ML 3 ML PEN SC SCH ×2 (08:19→12:12)
[2019-08-16] MEDS: predniSONE 20 MG TAB PO SCH (08:21)
[2019-08-16] MEDS: MULTIVITAMIN TAB PO SCH (08:21)
[2019-08-16] MEDS: PANTOprazole 40 MG TAB PO SCH (08:21)
[2019-08-16] MEDS: GABAPENTIN 100 MG CAP PO SCH (08:22)
[2019-08-16] MEDS: ROPINIROLE HCL 1 MG TABLET PO SCH ×2 (08:22→14:22)
[2019-08-16] MEDS: EUCERIN CR 120 GM JAR EXT SCH (08:23)
[2019-08-16] MEDS: FUROSEMIDE 40 MG TAB PO SCH (08:23)
[2019-08-16] MEDS: CHECK FENTANYL PATCH PLACEMENT SCH ×4 (08:23→15:47)
[2019-08-16] MEDS: DICLOFENAC SOD 1% GEL 100 GM TUBE EXT SCH (08:24)
[2019-08-16] MEDS: TIOTROPIUM BROMIDE 5 PUFF/90 MCG INH INH SCH (08:24)
[2019-08-16] MEDS: allopurinoL 100 MG TAB PO SCH (08:25)
[2019-08-16] MEDS: CARBAMIDE PEROXIDE 6.5% 15 ML BTL OTR SCH (08:26)
[2019-08-16] MEDS: carvediloL 3.125 MG TAB PO SCH (09:00)
--- NOTE | 2019-08-16 10:56 | Pharmacy Report ---
Pharmacy Glycemic Short Note 2 - Date of Service August 16, 2019 - Glycemic Short BSG Results (Last 24 hours): 08/15/19 08/15/19 08/15/19 08:46 11:25 11:58 POC Glucose 280 H 206 H 277 H 08/15/19 08/15/19 08/16/19 16:05 20:02 07:42 POC Glucose 255 H 226 H 131 H OUTPATIENT ANTIDIABETIC REGIMEN: * N/A * A1c: 5.6% ASSESSMENT: * ALLISON is an 88 year old female with no history of diabetes (borderline A1c of 5.6%) * Pharmacy consulted for glycemic management on 08/14 due to steroid-induced hyperglycemia * Currently receiving prednisone 40 mg PO daily - to begin downward taper tomorrow (30 mg) * BSGs ranging 226-280 mg/dL yesterday * Fasting BSG prior to taking steroids was 97 mg/dL on 08/09/19 * Patient received 75 units of insulin yesterday (30 of which were NPH to cover prednisone) * Fasting BSG this AM is 131 mg/dL * Overall BSG patter consistent with steroid-induced hyperglycemia (normal fasting BSG and elevated throughout the day) * Will adjust NPH dose to better cover prednisone dose PLAN FOR INPATIENT GLYCEMIC CONTROL: * Basal insulin - increase * Will increase NPH dose to 50 units today (approximately 0.4 unit/kg of actual body weight) given with prednisone 40 mg this morning * Anticipating that this will cover for prandial BSGs * Bolus insulin - tighten CF and remove CR (due to increased NPH dose and sig nificant improvement in BSGs today) * NovoLog per scale ACHS or Q6hrs while NPO * Goal Range: Low 110 mg/dL - High 150 mg/dL * Correction Factor: 20 mg/dL/unit PLAN FOR DISCHARGE: * A1c of 5.6% is borderline for prediabetes. Lifestyle changes may be appropriate. * Patient's current hyperglycemia is likely steroid-induced. * Anticipating quick steroid taper. Reasonable to discharge without antidiabetic agents.
--- NOTE | 2019-08-16 11:32 | Fluoroscopy Report ---
VIDEO SWALLOW STUDY CLINICAL HISTORY: Chronic aspiration. COMPARISON STUDY: No priors. Fluoroscopy time: 1.6 minutes. FINDINGS: Fluoroscopic guidance was provided to the Department of speech pathology in performing a vi kong swallow study. The patient consumed barium-impregnated pudding, cracker with paste, nectar thick liquid, and thin barium while the swallowing mechanism was observed in real-time. No penetration or a spiration was seen with any of the sampled textures. Mild esophageal dysmotility is observed. IMPRESSION: No penetration or aspiration was seen within the sampled textures. See dedicated speech p athology report for detailed findings and recommendations. Dictated: 08/16/2019 11:09 AM Transcribed: 08/16/2019 11:18 AM Azeb [id number] [facility] Electronically signed by: Jayson Joaquin M.D. 08/16/2019 11:31 AM
[2019-08-16 15:24] VITALS: BP 152/65; PULSE 73; TEMP 97.9; O2SAT 93
--- NOTE | 2019-08-16 17:49 | Discharge Summary ---
Date of Service August 16, 2019 Admission HPI Per Admitting Provider Ms. Mendez came to the emergency department secondary to epistaxis and bleeding at the mouth. She also has had a cough for some time and was discharged a week ago from [facility] [place] for pneumonia. In the ED she was found to have a supratherapeutic INR and severe thrombocytopenia. She was evaluated in the past for leukemia vs myelodysplasia but decided not to have a bone marrow biopsy. She denies any other s/s of bleeding such as melena, hematochezia, hematuria, or excessive bruising. No recent fevers, aches or chills. No cp or dizziness Pmhx: Chronic Respiratory Failure on 4 L Baseline, COPD, Diastolic CHF, HTN, CKD III, Macrocytic Anemia, H/O DVT/PE, H/O Breast CA/Lung CA S/P RUL Wedge Resection Social: never smoker, no alcohol, lives at [facility] Family: non contributory due to advanced age Primary Care Provider: [facility] Admission Exam Per Admitting Provider General: no distress Eyes: normal inspection, PERLL, scabbing left lower eyelid Respiratory: chest non tender, course bases bilaterally, no respiratory distress, somewhat labored breathing Cardiac: regular rate and rhythm, no rub or gallop, systolic murmur, pitting ed mallika bilateral lower extremities GI/: active bowel sounds, no abd pain or tenderness, soft, non distended Extremities: normal range of motion, normal strength, non tender Neuro/Psych: alert and oriented x 3, normal mood and affect Skin: bilateral lower extremities with venous stasis changes and erythema (patient reports this is her baseline), dry blood in both nares, dried blood at corners of mouth Principal Diagnosis Epistaxis in setting of elevated INR and thrombocytopenia Healthcare acquired pneumonia Amiodarone induced thrombocytopenia Acute Diastolic Heart Failure Obesity hypoventilation - obstructive sleep apnea Steroid induced hyperglycemia Discharge Exam Constitutional well developed, + ill appearing (chronically) and + morbidly obese; + not well nourished and no acute distress Eyes no conjunctival abnormality ENMT external ear and nose normal, oropharynx normal Ears: + EAC abnormality (excessive cerumen) and + unable to visualize TM (right) Neck trachea midline and + thick neck Respiratory normal respiratory effort and + prolonged expiratory phase; no respiratory d istress, no labored breathing and does not use accessory muscles Auscultation: + diminished lung sounds (bibasal) and + crackles (bibasal); no rales and no wheezes Cardiovascular Rate/Rhythm: regular rate and regular rhythm Heart Sounds: no murmur Extremities: + edema (chronic dermatitis changes 2+ to knees b/l) Gastrointestinal (Abdomen) Inspection/Auscultation: normal bowel sounds; abdomen not distended and no abdominal edema Percussion/Palpation: abdomen soft; abdomen nontender, no guarding and abdomen not rigid Musculoskeletal no cyanosis or clubbing, extremities motor strength 5/5 Gait: normal gait Skin no rashes, warm and dry (chronic venous deramtitis changes of lower limbs b/l) Neurologic moves all extremities and awake; no focal motor deficits Motor/Sensory: no sensory deficit Psychiatric A+Ox3, euthymic affect Discharge Data Allergies Allergy/AdvReac Type Severity Reaction Status Date / Time enoxaparin Allergy Intermediate RASH, Verified 07/30/19 11:05 PRURITUS Consultations 07/30/19 11:37 ED Decision to Admit Stat 07/30/19 18:07 Consult Case Management - Discharge Planning Routine Consult Hematology Routine 08/09/19 10:48 Consult Pulmonology Routine 08/13/19 09:25 Consult Cardiology Routine Ordered Studies 07/30/19 16:23 CT chest wo con Routine CT head/brain wo con Stat 08/07/19 13:34 US venous doppler LE BI Routine 08/16/19 11:00 FL video swallow Routine Hospital Course (1) Chronic respiratory failure with hypoxia: Acute on chronic exacerbation. Now back to baseline O2 requirement. Multifactorial from obesity hypoventilation, bronchiectasis, healthcare acquired pneumonia, prior PE, prior RUL wedge resection for lung cancer, pulmonary edema ?interstitial lung disease on CT. Less likely amiodarone induced fibrosis given short duration of use - however concern this did appear to cause an immune related thrombocytopenia. (2) Acute on chronic diastolic CHF (congestive heart failure): * Please resume home meds, including Lasix 40 mg daily. * Monitor daily weights -- please increase diuretic dose if pt. gains >2-3 lbs. * Please schedule follow up with primary care provider in 1-2 weeks. * Continue oxygen -- requires 4L via nasal cannula. (3) Pneumonia: - Completed initial course Ceftriaxone & Vanc then Doxy x 3 days but worsening SOB and pulm consult finished course of cefepime and azithromycin * Please encourage flutter valve use 5-10 times per hour. * Continue Duonebs scheduled every 4 hours while awake. * Please continue Codeine-guaifenesin for cough 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 Improved with both stopping amiodarone and using steroids so unclear of true diagnosis. Concern for longer-standing MDS but unlikely cause of acute thrombocytopenia which she will follow up with heme/onc as an outpatient (previously refused bone marrow biopsy). (5) Anemia: Macrocytic anemia Hgb ~8-9 during this admission, baseline ~9-10 per previous labs. 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 F/U heme/onc O/P (7) Venous stasis: Cellulitis previously noted on bilat LE; now resolved. Eucerin cream for wound care/dry skin. (8) PAF (paroxysmal atrial fibrillation): Last pAF in setting of PNA and ICU admission. Continue Coreg as prescribed. Appreciate cardiology consult - no need for anti-arrhythmic at this time Aim INR 2-3 Supratherapeutic INR * INR 4.3 on discharge (downtrending from 6.9 after x3 days 7.5mg), no warfarin 10/2 or 10/3 will restart today at 1mg daily and monitor INR daily until at goal 2-3. Handed over to nurse at [facility]. (9) COPD (chronic obstructive pulmonary disease): Unclear underlying lung pathology - bronchiectasis, COPD (hyperinflation of lungs), known obesity hypoventilation and obstructive sleep apnea * Continue tapering dose of prednisone, duonebs and home inhalers and follow up with pulmonology as outpatient * Needed BiPAP at night and as needed for shortness of breath * Please see separate speech and language therapy evaluation - Continue home inhalers as prescribed along with scheduled nebs as hyperinflation on CT. F/U PFTs O/P (10) Chronic low back pain: - Continue home pain regimen with Oxycodone and Fentanyl patch. - no change to home meds (11) Stage III chronic kidney disease: - Renally dose all meds - Cr at baseline (12) Neuropathy: - Continue home Cymbalta and Gabapentin (13) Hypothyroid: - TSH is 9.87 (last few values also elevated) - increased to 88 mcg daily. - Repeat TSH in 4 weeks after discharge (14) RLS (restless legs syndrome): - Continue Requip (15) History of pulmonary embolism: - INR 5.1. Usual dose 5mg caused supratherapeutic INR when taken with amiodarone. 7.5mg also caused very quikly a supratherapeutic INR therefore suspect sustained dose closer to 3mg. - Currently warfarin on hold due to supratherpeutic INR - Doppler of bilat LE negative for DVT. (16) Epistaxis: Resolved. Secondary to thrombocytopenia and supratherapeutic INR Total Time Total Time Spent Total Time Spent (In Minutes): 55 Total Time Includes: Examination of the Patient, Discharge Planning, Medication Reconciliation and Communication With Other Providers Discharge Plan Discharge Items Patient Disposition: Transfer Group Home Fac Reason For Visit: SUPRATHERAPEUTIC INR,EPISTAXIS Discharge Diagnosis: Epistaxis in setting of elevated INR and thrombocytopenia Healthcare acquired pneumonia Amiodarone induced thrombocytopenia Acute Diastolic Heart Failure Obesity hypoventilation - obstructive sleep apnea Steroid induced hyperglycemia Condition on Discharge: Fair Activity: As commented below Exercise/Sports: Gradually increase as tolerated Non-emergency contact: Primary Care Provider Call non-emergency contact if: you have any medication questions, your symptoms worsen, your pain is not controlled, your pain is worsening, your pain is unusual for you, your pain is concerning for you and you have a fever Follow-up/Referrals: Buddy Hodgson MD [Physician] - Buddy Stout MD [Physician] - Madi Castellanos [Primary Care Provider] - Diet: Heart Healthy Add Attending Provider Instructions: 1. Acute on Chronic Diastolic Heart Failure * Please resume home meds, including Lasix 40 mg daily. * Monitor daily weights -- please increase diuretic dose if pt. gains >2-3 lbs. * Please schedule follow up with primary care provider in 1-2 weeks. * Continue oxygen -- requires 4L via nasal cannula. 2. Thrombocytopenia suspected due to Amiodarone * Plt now back to normal. * Amiodarone has been discontinued (no further anti-arrhythmic required as per cardiology review) 3. Venous stasis of bilateral lower extremities * Please continue topical cream for dry skin. * Monitor lower extremity swelling/redness -- currently appears at baseline. 4. Pneumonia * Please encourage flutter valve use 5-10 times per hour. * Continue Duonebs scheduled every 4 hours while awake. * Please continue Codeine-guaifenesin for cough * Finished x2 courses of antibiotics for healthcare associated pneumonia 5. Hypothyroidism * Synthroid dose has been increased to 88 mcg. * Pt. will need repeat thyroid function tests in 4-6 weeks for re-evaluation. 6. Unclear underlying lung pathology - bronchiectasis, COPD (hyperinflation of lungs), known obesity hypoventilation and obstructive sleep apnea * Continue tapering dose of prednisone, duonebs and home inhalers and follow up with pulmonology as outpatient * Needed BiPAP at night and as needed for shortness of breath * Please see separate speech and language therapy evaluation 7. Macrocytic anemia * appears to be at baseline * follow up outpatient heme/onc for suspected MDS 8. Supratherapeutic INR * INR 4.3 on discharge (downtrending from 6.9 after x3 days 7.5mg), no warfarin 10/2 or 10/3 will restart today at 1mg daily and monitor INR daily until at goal 2-3 9. Steroid induced hyperglycemia * insulin given while inpatient but do not recommend continuing as likely will correct as steroids are tapered Pending Studies at Discharge: No Stand-Alone Forms: [facility] tagUin Skilled Items Patient informed of condition?: Yes DNR: No Discharge Level of Care: Skilled Communicable Disease: Yes Discharge Prognosis: Improving Lines: None Urinary Catheter: No Medications and DC Order Prescriptions: New prednisone 20 mg Tablet See Rx Instructions .ROUTE .COMPLEX Qty: 9 RF: 0 levothyroxine [Synthroid] 88 mcg Tablet 88 mcg PO DAILYBB Qty: 30 RF: 0 warfarin 1 mg tablet 1 mg PO DAILY Qty: 30 RF: 0 fentanyl 37.5 mcg/hour patch 72 hour 1 patch TD Q72H Qty: 5 RF: 0 oxycodone 10 mg tablet 10 mg PO DAILY PRN (Reason: severe pain) Qty: 30 RF: 0 codeine-guaifenesin 10-100 mg/5 mL liquid 10 ml PO Q6H PRN (Reason: cough) Qty: 118 RF: 0 Continued multivitamin Tablet 1 tab PO QAM RF: 0 azelastine 137 mcg (0.1 %) Aerosol,[place] 2 spray INTRANASAL QAM RF: 0 albuterol sulfate [Ventolin HFA] 90 mcg/actuation Hfa Aerosol Inhaler 2 puff INHALATION Q4H PRN (Reason: COPD) RF: 0 fluticasone propionate [Flonase Allergy Relief] 50 mcg/actuation [place],Suspension 2 spray INTRANASAL DAILY RF: 0 acetaminophen 325 mg Capsule 325 - 650 mg PO Q6H MDD 3G PRN (Reason: Fever/pain) RF: 0 Restasis MultiDose 0.05 % Drops 1 drp OPHTHALMIC (EYE) BID RF: 0 budesonide [Pulmicort] 0.5 mg/2 mL suspension for nebulization 0.5 mg NEB Q12H RF: 0 gabapentin 100 mg capsule 200 mg PO BID RF: 0 polyethylene glycol 3350 [Miralax] 17 gram powder in packet 17 g PO PM RF: 0 fluticasone propion-salmeterol [Advair Diskus] 100-50 mcg/dose Blister With Device 1 puff INHALATION Q12H RF: 0 bisacodyl 10 mg Suppository 10 mg NM DAILY PRN (Reason: Constipation) RF: 0 Fleet Enema 19-7 gram/118 mL Enema 118 ml NM DAILY PRN (Reason: Constipation) RF: 0 oxycodone 5 mg tablet 5 mg PO DAILY PRN (Reason: Moderate) Qty: 30 RF: 0 gabapentin 600 mg Tablet 600 mg PO HS RF: 0 allopurinol 100 mg Tablet 100 mg PO QAM RF: 0 montelukast [Singulair] 10 mg Tablet 10 mg PO PM RF: 0 Prilosec OTC 20 mg Tablet,Delayed Release (Dr/Ec) 20 mg PO QAM RF: 0 Spiriva with HandiHaler 18 mcg Capsule, W/Inhalation Device 1 cap INHALATION QAM RF: 0 duloxetine 30 mg Capsule,Delayed Release(Dr/Ec) 30 mg PO QPM RF: 0 acetaminophen [Tylenol Extra Strength] 500 mg Tablet 1,000 mg PO HS RF: 0 sodium chloride [Hinds Nasal] 0.65 % Aerosol,[place] 1 spray INTRANASAL UD PRN (Reason: Dry Nasal Passages) RF: 0 diclofenac sodium [Voltaren] 1 % Gel 2 g TOPICAL BID RF: 0 Changed albuterol sulfate 2.5 mg /3 mL (0.083 %) solution for nebulization 2.5 mg INH QID Qty: 90 RF: 0 Discontinued oxycodone 10 mg Tablet 10 mg PO HS PRN (Reason: Pain management ) RF: 0 benzonatate [Tessalon Perles] 100 mg capsule 100 mg PO TID RF: 0 oxycodone 5 mg tablet 5 mg PO QAM PRN (Reason: Moderate) RF: 0 ropinirole 1 mg Tablet 1 mg PO QID 30 Days Qty: 120 RF: 0 amiodarone 200 mg Tablet 200 mg PO BIDM 30 Days Qty: 60 RF: 0 warfarin [Coumadin] 5 mg tablet 5 mg PO DAILY Qty: 30 RF: 0 levothyroxine 75 mcg Tablet 75 mcg PO DAILY RF: 0 oxycodone 5 mg Tablet 5 mg PO DAILY RF: 0 fentanyl 37.5 mcg/hour Patch 72 Hour 1 patch TRANSDERMAL Q72H Qty: 1 RF: 0 Discharge Orders: Discharge Order (Routine); Ordered 08/16/19 Ordered By: Leandro Garcia Admission Data Admit Date/Time: 07/30/19 16:12 Attending Provider: Leandro Garcia Admit Provider: Marlon Roman Primary Care Provider: Madi Castellanos Other Providers: Bi Jones ; Buddy Hodgson ; Jus Mendez Other Interventions: Discharge Summary Assessment (RN) Last Done: 08/16/19 15:57 DC Date/Time DO NOT enter until pt leaves facility: 08/16/19 15:45
[2019-08-17] MEDS ORDERED: predniSONE 20 MG TAB PO SCH (09:00)
== END 2019-08-16 15:45 | DRG 813 ==
LOC: ED 09:44 → SUATTDRO 16:12 → 2E 16:12 → 2W 08-07 13:57
DX: L03.115 Cellulitis of right lower limb; I50.33 Acute on chronic diastolic (congestive) heart failure; G89.29 Other chronic pain; Z99.81 Dependence on supplemental oxygen; Z86.711 Personal history of pulmonary embolism; Z79.899 Other long term (current) drug therapy; G25.81 Restless legs syndrome; I48.0 Paroxysmal atrial fibrillation; M54.5 Low back pain; Z79.01 Long term (current) use of anticoagulants; L03.116 Cellulitis of left lower limb; M79.661 Pain in right lower leg; I50.32 Chronic diastolic (congestive) heart failure; J15.9 Unspecified bacterial pneumonia; I87.8 Other specified disorders of veins; R04.0 Epistaxis; D46.9 Myelodysplastic syndrome, unspecified; T46.2X5A Adverse effect of other antidysrhythmic drugs, initial encounter; Z87.01 Personal history of pneumonia (recurrent); T38.0X5A Adverse effect of glucocorticoids and synthetic analogues, initial encounter; J44.0 Chronic obstructive pulmonary disease with (acute) lower respiratory infection; I13.0 Hypertensive heart and chronic kidney disease with heart failure and stage 1 through stage 4 chronic kidney disease, or unspecified chronic kidney disease; G62.9 Polyneuropathy, unspecified; N18.3 Chronic kidney disease, stage 3 (moderate); E66.2 Morbid (severe) obesity with alveolar hypoventilation; R73.9 Hyperglycemia, unspecified; Z86.718 Personal history of other venous thrombosis and embolism; D69.59 Other secondary thrombocytopenia; D64.9 Anemia, unspecified; Z68.43 Body mass index [BMI] 50.0-59.9, adult; J96.21 Acute and chronic respiratory failure with hypoxia; E03.9 Hypothyroidism, unspecified

== ENCOUNTER 2019-12-08 10:11 | Inpatient (IN) ==
[2019-12-08] MEDS ORDERED: CEFEPIME 2,000 MG in SYRINGE 7.5 ML IV STA (10:32)
[2019-12-08] MEDS ORDERED: VANCOMYCIN CONSULT ACTIVE PRN (10:32)
[2019-12-08] MEDS ORDERED: VANCOMYCIN HCL 2,750 MG in SODIUM CHLORIDE 0.9% 500 ML IV ONE (10:32)
[2019-12-08] MEDS ORDERED: CEFEPIME 20 ML IV STA (10:35)
[2019-12-08] MEDS ORDERED: SODIUM CHLORIDE 0.9% 1000ML 1,000 ML IV SCH (10:45)
[2019-12-08] MEDS ORDERED: SODIUM CHLORIDE 0.9% 500 ML IV SCH (10:45)
--- NOTE | 2019-12-08 10:56 | XRay Report ---
XR chest 1V portable HISTORY: 89 years-old Female fever acute fever COMPARISON: Chest radiographs 08/14/2019 TECHNIQUE: Portable AP view of the chest FINDINGS: Cardiac silhouette is enlarged. Mild pulmonary vascular congestion. Calcified plaque of the thoracic aortic arch. No pneumothorax. Blunting of the lateral right costophrenic angle suggests trace effusio n. Minimal bibasilar densities suggest atelectasis. No airspace opacity typical for pneumonia. Degene rative changes of the shoulders and spine. Surgical clips project in the upper abdomen. Partially valerie ged spinal fusion hardware. IMPRESSION: 1. Cardiomegaly with pulmonary vascular congestion. 2. Suggested trace right pleural effusion. ACT 112: Negative or not required by law. The above report was generated using voice recognition software. It may contain grammatical, syntax o r spelling errors. Electronically signed by: Sixto Breaux M.D. 12/08/2019 10:54 AM
[2019-12-08 10:57] LABS: INR 1.6 (0.9-1.1); Prothrombin Time 15.6 Seconds (9.0-12.0)
[2019-12-08 11:03] LABS: Albumin Level 2.3 gm/dl (3.4-5.0); BUN Creatinine Ratio 28.3 (10-20); Calcium 9.6 mg/dl (8.5-10.1); Creatinine Clr Calc Pharmacy 32.4 ml/min; Est GFR (African American) 30.2; Est GFR (Non-African American) 26.1; Potassium 4.5 mmol/L (3.5-5.1)
[2019-12-08 11:14] LABS: Albumin Globulin Ratio 0.7 (0.9-2); Bilirubin,Total 1.3 mg/dl (0.2-1); Globulin 3.2 gm/dl (2.5-4.0); Total Protein 5.5 gm/dl (6.4-8.2); Troponin I 0.046 ng/ml (0-0.045)
[2019-12-08] MEDS ORDERED: dilTIAZem HCl 5 MG/ML 5 ML VIAL IV STA ×2 (11:18→11:47)
[2019-12-08 11:22] LABS: Anisocytosis Present; Giant Platelets 1+; Hematocrit (blood only) 27.2 % (37-47); Hypogranular Neutrophils 2+; Mean Corpuscular Hemoglobin 34.2 pg (25-34); Mean Corpuscular Hgb Conc 33.1 g/dL (32-36); Mean Corpuscular Volume 103.4 fL (80-100); Platelet Count 16 K/uL (130-400); Platelet Estimate SIGNIFIC DECREASED (Normal); RDW Coefficient of Variation 20.2 % (11.5-14.5); RDW Standard Deviation 76.5 fL (36.4-46.3); Red Blood Count 2.63 M/uL (4.2-5.4); White Blood Count 31.12 K/uL (4.8-10.8)
[2019-12-08 11:30] LABS: Bacteria Urine Automated 3+ (Negative); Blood Urine 2+ (Negative); Color Urine Dark Yellow; Epithelial Cell Urine Auto >30 /lpf (0-5); Glucose Urine UA Negative (Negative); Ketones Urine Trace (Negative); Leukocyte Esterase Urine 1+ (Negative); Nitrite Urine Negative (Negative); Protein Urine 1+ (Negative); Specific Gravity Urine 1.021 (1.000-1.030); Urobilinogen Urine Negative (Negative)
[2019-12-08 11:31] LABS: Appearance Urine Slightly Cloudy (Clear)
[2019-12-08 11:34] LABS: Bilirubin Urine Negative (Negative); Ictotest Urine Negative (Negative)
[2019-12-08 11:39] LABS: ANC (manual) 29.25 K/uL (1.4-6.5); Monocytes # (manual) 1.56 K/uL (0.11-0.59); Myelocytes # (manual) 0.31 K/uL (0-0); Neutrophils # (manual) 29.25 K/uL (1.4-6.5)
[2019-12-08 11:45] LABS: Mucus Urine Present (None Prsent)
[2019-12-08] MEDS ORDERED: SODIUM CHLORIDE 0.9% 250 ML IV PRN ×2 (12:14→15:06)
[2019-12-08] MEDS ORDERED: AMIODARONE IV BOLUS / DRIP IV STA (12:15)
[2019-12-08] MEDS ORDERED: AMIODARONE / D5W 150 MG/100 ML BAG IV ONE (12:30)
[2019-12-08 12:40] LABS: Thyroid Stimulating Hormone 0.548 uIu/ml (0.300-4.500)
--- NOTE | 2019-12-08 12:56 | History & Physical Report ---
Date of Service December 08, 2019 Assessment & Plan (1) Sepsis: Admit to PCU on telemetry Vital signs every 4 hours Replenish electrolytes and monitor Started vancomycin and cefepime in the ER Continue vancomycin cefepime managed by pharmacy. Patient will need renal adjustment of vancomycin. Trough to be between 10 and 15. N.p.o. for now because patient patient has altered mental status. Advance diet as tolerated to heart healthy low-sodium and p.o. free water restriction to 1200 mils per day Repeat lactate in 4 hours. First lactate 2. DVT prophylaxis with warfarin on hold since patient has thrombocytopenia of 16. Will give 1 unit of platelets. Continue monitoring platelets Patient CODE STATUS is DNR/DNI Present on Admission?: Yes (2) Atrial fibrillation: Hold warfarin due to low platelet count and easy bruising with hematoma of the right lower extremity. Given diltiazem 10 mg IV push in the ER. Due to low blood pressure patient was started on amiodarone drip to control rapid A. fib's. Continue monitoring. Present on Admission?: Yes (3) Cellulitis of right lower extremity: Patient has extensive cellulitis of the right lower extremity started from her lord to the mid thigh. X-rays of the right leg pending. Continue cefepime and vancomycin adjusted for the CKD stage III. Monitor white blood cell count(they are elevated to 31,000, partially due to patient myelodysplastic disorder, and partially due to infection.) Present on Admission?: Yes (4) Fluid overload: Patient is now hypotensive. Strict in and out Daily weight Will start furosemide 40 mg IV daily for brisk diuresis, as soon as hypotension improves. Present on Admission?: Yes (5) CHF exacerbation: Patient is in a acute diastolic CHF exacerbation. She has pulmonary congestion Strict in and out Daily weight Low-sodium diet Monitor free p.o. intake to 1200 mils once when patient awake and able to eat. For now patient is n.p.o. since with altered mental status. Hold carvedilol 3.125 mg twice daily since patient in acute exacerbation and hypotensive Present on Admission?: Yes (6) CARLITOS (obstructive sleep apnea): Patient may use CPAP at night Present on Admission?: Yes (7) Obesity (BMI 30.0-34.9): Patient has metabolic syndrome. Recommended to lose weight if possible with proper diet and exercises. Present on Admission?: Yes (8) Bone marrow disorder: Patient has myelodysplasia. She opted not to have bone marrow biopsy. Continue monitoring platelets. Now platelets are 16 We will give 1 unit of platelets Monitor daily for bruises, hematemesis, hematuria, melena Keep off of anticoagulation Present on Admission?: Yes (9) Chronic respiratory failure with hypoxia: Likely due to acute exacerbation of CHF. Pneumonia is not excluded. Calcitonin pending Started antibiotics as discussed above. Ipratropium nebs every 8 due to rapid A. fib's Solu-Medrol 60 twice daily and taper down Robitussin for cough Use CPAP and BPAP as needed for high flow Continue montelukast 10 mg p.o. p.m. Continue guaifenesin 200 mg p.o. every 4 hours as needed Continue fluticasone propionate 2 sprays intranasally Continue Advair 1 puff every 12 Continues sodium chloride intranasally 1 spray as needed Continue Spiriva 1 cap inhalation every morning Present on Admission?: Yes (10) Hypothyroid: TSH normal. Continue 112 MCG's of levothyroxine daily. Present on Admission?: Yes (11) Thrombocytopenia: As discussed above. Likely due to sepsis and myelodysplastic disorder. Consult oncology Given 1 unit of platelets. Continue monitoring Present on Admission?: Yes (12) Elevated troponin: First troponin elevated 0.046, likely due to demand ischemia with rapid A. fib's. Patient does not appear to be in acute coronary syndrome. Continue trending troponin x3 Started amiodarone drip for A. fib's Present on Admission?: Yes (13) Acute kidney injury: Prior patient baseline was within normal limits with creatinine 1.04 and GFR of 47.9. Likely due to dehydration and sepsis. Avoid nephrotoxic agents Continue monitoring Present on Admission?: Yes History of Present Illness Chief Complaint: Sepsis Primary Care Provider: [facility] The patient is a and 89 years old female with past medical history of COPD, diastolic CHF, hypertension, CKD stage III, macrocytic anemia with myelodysplasia,, paroxysmal atrial fibrillation on warfarin, profound thrombocytopenia who was brought by EMS to the emergency room from [facility] with a complaint of feeling sick for the past few days, cloudy urine, altered mental status, generalized weakness, shortness of breath, swelling and redness of her right lower extremity up to her thigh. Patient is accompanied by Yas Mendez who is her [id number] and POA. Patient herself is so sick that she could not review any history or review of system. While she is arousable on painful stimuli she is poor historian with altered mental status. Yas yesterday patient's POA states that patient wishes CODE STATUS to be DNR/DNI as well as she wants to pursue comfort measures without any intervention except for antibiotics, fluids, heart medication such as medication to slow her heart rate, or blood transfusion with blood products. Yas yesterday specifically stated that she does not want any invasive procedures included but not limited to central line. EKG pending, labs are reviewed: Sodium 138, potassium 4.5, chloride 100, chloride 100, carbon dioxide 32, anion gap 6, BUN 49, creatinine 1.72, and GFR 26.1, BUN 28.3, lactate 2, calcium 9.6, magnesium pending, total bilirubin 1.3, AST 25, ALT 33, alkaline phosphatase 124, troponin 0.046, BNP 15,687, total protein 5.5, albumin 2.3, globulin 3.2, albumin to globulin ratio 0.7, procalcitonin pending, TSH 0.548, urine slightly cloudy, urine pH 5, urine specificity 1.0 21, urine ketones trace, urine blood 2+, leukocyte esterase 1+, WBC 5-10, urine RBCs 5-10, epithelial cells over 30, urine bacteria 3+, urine mucus present. Patient is positive for MRSA. BNP pending. Chest x-ray shows cardiomegaly with pulmonary vascular congestion. Trace right pleural effusion. Decision was made to admit patient to PCU on telemetry for paroxysmal A. fib's with RVR, sepsis, urinary tract infection, acute exacerbation of diastolic CHF. Allergies Allergy/AdvReac Type Severity Reaction Status Date / Time enoxaparin Allergy Intermediate RASH, Verified 12/08/19 10:57 PRURITUS Home Medications Home Medications Medication Instructions Recorded Confirmed Type Prilosec OTC 20 mg PO QAM 09/07/18 12/08/19 History Spiriva with HandiHaler 1 cap INHALATION QAM 09/07/18 12/08/19 History allopurinol 100 mg PO QAM 09/07/18 12/08/19 History duloxetine 30 mg PO QPM 09/07/18 12/08/19 History gabapentin 600 mg PO HS 09/07/18 12/08/19 History montelukast [Singulair] 10 mg PO PM 09/07/18 12/08/19 History Restasis MultiDose 1 drp OPHTHALMIC (EYE) BID 11/06/18 12/08/19 History acetaminophen 325 - 650 mg PO Q6H PRN MDD 3G 11/06/18 12/08/19 History albuterol sulfate [Ventolin HFA] 2 puff INHALATION Q4H PRN 11/06/18 12/08/19 History azelastine 2 spray INTRANASAL QAM 11/06/18 12/08/19 History fluticasone propionate [Flonase 2 spray INTRANASAL DAILY 11/06/18 12/08/19 History Allergy Relief] multivitamin 1 tab PO QAM 11/06/18 12/08/19 History acetaminophen [Tylenol Extra 1,000 mg PO HS 02/02/19 12/08/19 History Strength] diclofenac sodium [Voltaren] 2 g TOPICAL BID 02/02/19 12/08/19 History sodium chloride [[place] Nasal] 1 spray INTRANASAL UD PRN 02/02/19 12/08/19 History gabapentin 200 mg PO BID 07/14/19 12/08/19 History polyethylene glycol 3350 [Miralax] 17 g PO PM 07/14/19 12/08/19 History Fleet Enema 118 ml OH DAILY PRN 07/30/19 12/08/19 History bisacodyl 10 mg OH DAILY PRN 07/30/19 12/08/19 History fluticasone propion-salmeterol 1 puff INHALATION Q12H 07/30/19 12/08/19 History [Advair Diskus] albuterol sulfate 2.5 mg INH QID #90 ml 08/16/19 12/08/19 Rx codeine-guaifenesin 10 ml PO Q6H PRN #118 ml 08/16/19 12/08/19 Rx fentanyl 1 patch TD Q72H #5 ea 08/16/19 12/08/19 Rx oxycodone 5 mg PO DAILY PRN #30 tab 08/16/19 12/08/19 Rx oxycodone 10 mg PO DAILY PRN #30 tab 08/16/19 12/08/19 Rx carvedilol 3.125 mg tablet 3.125 mg PO BID tab 09/09/19 12/08/19 History budesonide 0.5 mg/2 mL suspension 2 ml INH BID 09/11/19 12/08/19 History for nebulization furosemide 40 mg tablet 40 mg PO DAILY #30 tab 09/11/19 12/08/19 Rx ropinirole 1 mg tablet 1 mg PO QID #90 tab 09/11/19 12/08/19 Rx guaifenesin 100 mg/5 mL oral liquid 200 mg PO Q4H PRN 11/28/19 12/08/19 History prednisone 20 mg tablet See Rx Instructions PO .COMPLEX 11/28/19 12/08/19 Rx #18 tab ceftriaxone 2 g IV DAILY 12/08/19 12/08/19 History levothyroxine 112 mcg PO DAILY 12/08/19 12/08/19 History warfarin 1.5 mg PO DAILY 12/08/19 12/08/19 History Past Med/Surg History Medical History Asthma (Chronic) Chronic back pain Chronic diastolic CHF (congestive heart failure) (Chronic) CKD (chronic kidney disease), stage III (Chronic) COPD exacerbation (Acute) DCIS (ductal carcinoma in situ) (~2012) Deep vein blood clot of right lower extremity History of pulmonary embolism Hx pulmonary embolism Hypertension (Chronic) Hypoxia (Acute) Lung cancer (~2010) Mixed conductive and sensorineural hearing loss of right ear with restricted hearing of left ear RLS (restless legs syndrome) Spasmodic dysphonia Surgical History H/O mastectomy History of back surgery History of lung surgery Hx of appendectomy Hx of hernia repair Hx of hysterectomy Hx of resection of liver Hx of total knee replacement Family History Other Family history non-contributory Social History Preferred Language: German Communication Ability: lethargic, 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 Required: No Beliefs That Will Affect Care: None Current Living Situation: Retirement Current Living Situation Comment: [facility] Other Information That Helps Us Care for You: No Feels Safe at Home: Yes Safety Concerns: Feels Safe At This Time Smoking Status: Never smoker Do You Dip or Chew Tobacco: No ; Second Hand Exposure: No ; Tobacco Cessation Education Requested by Patient: No Hx Alcohol Use: No Hx Substance Use: No Review of Systems Review of Systems: All systems reviewed & are unremarkable except as noted in HPI & below Physical Exam Constitutional: WD/WN, vitals as above well developed, + ill appearing and + morbidly obese Eyes: PERRL, conjunctivae normal, anicteric sclerae ENMT: external ear and nose normal, oropharynx normal Neck: trachea midline, no thyromegaly Respiratory: + respiratory distress, + labored breathing and + uses accessory muscles Auscultation: + crackles, + wheezes and + bronchovesicular breath sounds Cardiovascular: Rate/Rhythm: + irregularly irregular Heart Sounds: normal S1 and normal S2 Palpation: + palpable S3 Vessels: + JVD and dorsalis pedis pulses present Extremities: + pedal edema A. fib's with RVR Gastrointestinal (Abdomen): normal bowel sounds, soft, nontender, no hepatosplenomegaly Musculoskeletal: no cyanosis or clubbing, extremities motor strength 5/5 Right lower extremity is swollen red edematous from the lord to the lower thigh Skin: Right lower extremity edema, swelling, skin tightness, warm to touch Neurologic: PERRL, EOMI, accommodation nl, no face palsy, no dysarthria Psychiatric: Insight: + limited insight Confused Lymphatic: no cervical or axillary lymphadenopathy Results & Data Vital Signs (Past 12 Hours) Vital Signs Temp Pulse Resp BP Pulse Ox 12/08/19 10:02 36.9 C 157 H 27 H 90/47 L 94 Code Status & VTE Plan Code Status DNR/DNI VTE Prophylaxis Plan VTE Prophylaxis will be ordered: No PG Care Time/CCT Total # of Minutes Spent Total Time Spent with Patient: Total time spent is greater than 50% in coord ination of care (as documented) at patient's floor/unit and/or counseling patient: Coding Level of Care Code 25176 Initial Inpt Care Lvl 3 Diagnoses Sepsis A41.9 Atrial fibrillation I48.91 Cellulitis of right lower extremity L03.115 Fluid overload E87.70 CHF exacerbation I50.9 CARLITOS (obstructive sleep apnea) G47.33 Obesity (BMI 30.0-34.9) E66.9 Bone marrow disorder D75.9 Chronic respiratory failure with hypoxia J96.11 Hypothyroid E03.9 Thrombocytopenia D69.6 Elevated troponin R79.89 Acute kidney injury N17.9
[2019-12-08] MEDS: AMIODARONE / D5W 360 MG/200 ML BAG IV SCH ×2 (13:11→18:31)
--- NOTE | 2019-12-08 13:54 | Emergency Department Note ---
Entered by Carmen Laughlin acting as a scribe for History of Present Illness General Chief complaint: Illness Stated complaint: ILLNESS, CHEST PAIN, SOB Source: patient and EMS Mode of arrival: EMS Limitations: no limitations History of Present Illness Onset (ago): day(s) 1 Location: chest Radiation: non-radiation Pain Consistency: + constant Relieved By: + none Exacerbated By: + none Treatments prior to arrival: none The patient is an 89 year old female who presents to the ED with complaints of chest pain. She was brought to the ED via EMS from [facility], where she resides. Her temperature was 100.8 in the field and [facility] states they noticed she was febrile last night. She received IV ceftriaxone this morning. The patient also complains of shortness of breath and is in atrial fibrillation on arrival to the ED. She has an existing right lower extremity cellulitis that is increasingly red here in the ED. Home Medications Home Medications Medication Instructions Recorded Confirmed Type Prilosec OTC 20 mg PO QAM 09/07/18 12/08/19 History Spiriva with HandiHaler 1 cap INHALATION QAM 09/07/18 12/08/19 History allopurinol 100 mg PO QAM 09/07/18 12/08/19 History duloxetine 30 mg PO QPM 09/07/18 12/08/19 History gabapentin 600 mg PO HS 09/07/18 12/08/19 History montelukast [Singulair] 10 mg PO PM 09/07/18 12/08/19 History Restasis MultiDose 1 drp OPHTHALMIC (EYE) BID 11/06/18 12/08/19 History acetaminophen 325 - 650 mg PO Q6H PRN MDD 3G 11/06/18 12/08/19 History albuterol sulfate [Ventolin HFA] 2 puff INHALATION Q4H PRN 11/06/18 12/08/19 History azelastine 2 spray INTRANASAL QAM 11/06/18 12/08/19 History fluticasone propionate [Flonase 2 spray INTRANASAL DAILY 11/06/18 12/08/19 History Allergy Relief] multivitamin 1 tab PO QAM 11/06/18 12/08/19 History acetaminophen [Tylenol Extra 1,000 mg PO HS 02/02/19 12/08/19 History Strength] diclofenac sodium [Voltaren] 2 g TOPICAL BID 02/02/19 12/08/19 History sodium chloride [Izard Nasal] 1 spray INTRANASAL UD PRN 02/02/19 12/08/19 History gabapentin 200 mg PO BID 07/14/19 12/08/19 History polyethylene glycol 3350 [Miralax] 17 g PO PM 07/14/19 12/08/19 History Fleet Enema 118 ml HI DAILY PRN 07/30/19 12/08/19 History bisacodyl 10 mg HI DAILY PRN 07/30/19 12/08/19 History fluticasone propion-salmeterol 1 puff INHALATION Q12H 07/30/19 12/08/19 History [Advair Diskus] albuterol sulfate 2.5 mg INH QID #90 ml 08/16/19 12/08/19 Rx codeine-guaifenesin 10 ml PO Q6H PRN #118 ml 08/16/19 12/08/19 Rx fentanyl 1 patch TD Q72H #5 ea 08/16/19 12/08/19 Rx oxycodone 5 mg PO DAILY PRN #30 tab 08/16/19 12/08/19 Rx oxycodone 10 mg PO DAILY PRN #30 tab 08/16/19 12/08/19 Rx carvedilol 3.125 mg tablet 3.125 mg PO BID tab 09/09/19 12/08/19 History budesonide 0.5 mg/2 mL suspension 2 ml INH BID 09/11/19 12/08/19 History for nebulization furosemide 40 mg tablet 40 mg PO DAILY #30 tab 09/11/19 12/08/19 Rx ropinirole 1 mg tablet 1 mg PO QID #90 tab 09/11/19 12/08/19 Rx guaifenesin 100 mg/5 mL oral liquid 200 mg PO Q4H PRN 11/28/19 12/08/19 History prednisone 20 mg tablet See Rx Instructions PO .COMPLEX 11/28/19 12/08/19 Rx #18 tab ceftriaxone 2 g IV DAILY 12/08/19 12/08/19 History levothyroxine 112 mcg PO DAILY 12/08/19 12/08/19 History warfarin 1.5 mg PO DAILY 12/08/19 12/08/19 History Allergies Allergy/AdvReac Type Severity Reaction Status Date / Time enoxaparin Allergy Intermediate RASH, Verified 12/08/19 10:57 PRURITUS Past Med/Surg History Medical History Asthma (Chronic) Chronic back pain Chronic diastolic CHF (congestive heart failure) (Chronic) CKD (chronic kidney disease), stage III (Chronic) COPD exacerbation (Acute) DCIS (ductal carcinoma in situ) (~2012) Deep vein blood clot of right lower extremity History of pulmonary embolism Hx pulmonary embolism Hypertension (Chronic) Hypoxia (Acute) Lung cancer (~2010) Mixed conductive and sensorineural hearing loss of right ear with restricted hearing of left ear RLS (restless legs syndrome) Spasmodic dysphonia Surgical History H/O mastectomy History of back surgery History of lung surgery Hx of appendectomy Hx of hernia repair Hx of hysterectomy Hx of resection of liver Hx of total knee replacement Family History Other Family history non-contributory Social History Preferred Language: Nepali Communication Ability: Effective Safety Deposit Clerk Required: No Beliefs That Will Affect Care: None Current Living Situation: Sn[facility] Current Living Situation Comment: [facility] Feels Safe at Home: Yes Smoking Status: Never smoker Second Hand Exposure: No ; Hx Alcohol Use: No Hx Substance Use: No Review of Systems See HPI for pertinent positives & negatives. and A total of 10 systems reviewed and were otherwise negative Physical Exam Vital Signs Vital Signs - 24 hr 12/08/19 10:02 12/08/19 10:29 12/08/19 10:30 Temperature 36.9 C Temperature Source Oral Pulse Rate 157 H 148 H 153 H Pulse Rate from SpO2 Sensor 154 H 144 H Pulse Rhythm Irregular Pulse Strength Normal Respiratory Rate 27 H 21 33 H Respiratory Effort / Characteristics Non-Labored Spontaneous Respiratory Depth Normal Respiratory Pattern Regular Blood Pressure 90/47 L 74/55 L 90/47 L Blood Pressure Mean 61 58 59 Pulse Oximetry 94 92 96 Oxygen Delivery Method Nasal Cannula Oxymask Oxymask Oxygen Flow Rate 4 4 4 Sepsis Recent Fever Within 48 Hours Yes Sepsis New/Unexplained Change in Mental Status No Sepsis Action Taken by Nursing Physician Notified 12/08/19 10:48 12/08/19 11:20 12/08/19 11:30 Temperature Temperature Source Pulse Rate 149 H 144 H 122 H Pulse Rate from SpO2 Sensor 149 H 140 H 115 H Pulse Rhythm Pulse Strength Respiratory Rate 17 31 H 30 H Respiratory Effort / Characteristics Respiratory Depth Respiratory Pattern Blood Pressure 83/66 L 115/61 104/56 L Blood Pressure Mean 77 71 59 Pulse Oximetry 96 95 96 Oxygen Delivery Method Oxymask Oxymask Oxymask Oxygen Flow Rate 4 4 4 Sepsis Recent Fever Within 48 Hours Sepsis New/Unexplained Change in Mental Status Sepsis Action Taken by Nursing 12/08/19 11:45 12/08/19 12:00 12/08/19 12:15 Temperature Temperature Source Pulse Rate 144 H 133 H 109 H Pulse Rate from SpO2 Sensor 131 H 116 H 107 H Pulse Rhythm Pulse Strength Respiratory Rate 28 H 26 H 23 Respiratory Effort / Characteristics Respiratory Depth Respiratory Pattern Blood Pressure 101/52 L 108/83 110/63 Blood Pressure Mean 59 87 76 Pulse Oximetry 97 98 97 Oxygen Delivery Method Oxymask Oxymask Oxymask Oxygen Flow Rate 4 4 4 Sepsis Recent Fever Within 48 Hours Sepsis New/Unexplained Change in Mental Status Sepsis Action Taken by Nursing 12/08/19 12:30 Temperature Temperature Source Pulse Rate 137 H Pulse Rate from SpO2 Sensor 114 H Pulse Rhythm Pulse Strength Respiratory Rate 25 H Respiratory Effort / Characteristics Respiratory Depth Respiratory Pattern Blood Pressure 87/66 L Blood Pressure Mean 70 Pulse Oximetry 97 Oxygen Delivery Method Oxymask Oxygen Flow Rate 4 Sepsis Recent Fever Within 48 Hours Sepsis New/Unexplained Change in Mental Status Sepsis Action Taken by Nursing Vital signs reviewed. Patient is hypotensive and tachycardic. General: Acute on chronically-ill appearing 89 year old female, in no significant distress. HEENT: No scleral icterus, PERRLA, neck supple. Atraumatic. Cardiovascular: Tachycardic and irregular, no extra sounds. Pulmonary: Course breath sounds bilaterally, normal work of breathing. Abdomen: Morbidly obese, soft, nontender, nondistended, positive bowel sounds. Musculoskeletal: Atraumatic. Erythema to the RLE, from the ankle to the groin medially. Neurologic: Patient somnolent but arrousable. Unable to answer questions appropriately Skin: Warm, dry, RLE rash as above. bleeding from IV site. Course Course 1028: The patient was evaluated in room B3 and a complete history and physical were performed. 1150: I reevaluated the patient. She is resting comfortably. I discussed her results and my recommendation she remain in the hospital for further evaluation and management and she is agreeable with the plan. 1155: I discussed the patients case with Dr. Anderson, [facility]. The patient will be further evaluated. Consultations Consultation #1: I discussed the patients case with Dr. Anderson, [facility]. The patient will be further evaluated. Time: 11:55 Administered Medications Acetaminophen (Tylenol) 650 mg PO Q4H PRN PRN Reason: Pain or Fever Stop: 01/07/20 15:05 Last Admin: 12/09/19 14:24 Dose: 650 mg Documented by: [id number] Admin: 12/09/19 09:09 Dose: 650 mg Documented by: [id number] Allopurinol (Zyloprim) 100 mg PO QAM [facility] Stop: 01/08/20 08:59 Last Admin: 12/11/19 10:10 Dose: 100 mg Documented by: [id number] Cosigned by: [id number] Admin: 12/10/19 07:55 Dose: 100 mg Documented by: [id number] Admin: 12/09/19 08:54 Dose: 100 mg Documented by: [id number] Budesonide (Pulmicort Respules) 0.5 mg INH BIDR [facility] Stop: 01/07/20 18:59 Last Admin: 12/11/19 07:10 Dose: 0.5 mg Documented by: [id number] Admin: 12/10/19 19:10 Dose: 0.5 mg Documented by: [id number] Admin: 12/10/19 06:58 Dose: 0.5 mg Documented by: [id number] Admin: 12/09/19 19:23 Dose: 0.5 mg Documented by: [id number] Admin: 12/09/19 07:04 Dose: 0.5 mg Documented by: [id number] Admin: 12/08/19 19:20 Dose: 0.5 mg Documented by: [id number] Carvedilol (Coreg) 6.25 mg PO BID [facility] Stop: 01/09/20 20:59 Last Admin: 12/11/19 10:00 Dose: 6.25 mg Documented by: [id number] Cosigned by: [id number] Admin: 12/10/19 21:00 Dose: 6.25 mg Documented by: [id number] Diclofenac Sodium (Voltaren 1% Top) 2 gm EXT BID [facility] Stop: 01/07/20 20:59 Last Admin: 12/11/19 10:10 Dose: 2 gm Documented by: [id number] Cosigned by: [id number] Admin: 12/10/19 20:59 Dose: 2 gm Documented by: [id number] Admin: 12/10/19 07:57 Dose: 2 gm Documented by: [id number] Admin: 12/09/19 21:30 Dose: 2 gm Documented by: [id number] Admin: 12/09/19 08:54 Dose: 2 gm Documented by: [id number] Admin: 12/08/19 21:40 Dose: 2 gm Documented by: [id number] Duloxetine HCl (Cymbalta) 30 mg PO QPM [facility] Stop: 01/07/20 20:59 Last Admin: 12/10/19 21:00 Dose: 30 mg Documented by: [id number] Admin: 12/09/19 21:29 Dose: 30 mg Documented by: [id number] Admin: 12/08/19 21:39 Dose: 30 mg Documented by: [id number] Fentanyl (Duragesic) 25 mcg TD Q3D@2100 [facility]; Protocol Stop: 12/22/19 20:59 Last Admin: 12/08/19 21:40 Dose: 25 mcg Documented by: [id number] Fentanyl (Duragesic) 12 mcg TD Q3D@2100 [facility]; Protocol Stop: 12/22/19 20:59 Last Admin: 12/08/19 21:40 Dose: 12 mcg Documented by: [id number] Fluticasone Propionate (Flonase) 2 sprays TEOFILO DAILY [facility] Stop: 01/08/20 08:59 Last Admin: 12/11/19 10:00 Dose: 2 sprays Documented by: [id number] Cosigned by: [id number] Admin: 12/10/19 07:57 Dose: 2 sprays Documented by: [id number] Admin: 12/09/19 08:56 Dose: 2 sprays Documented by: [id number] Fluticasone/Vilanterol (Breo Ellipta 100/25 Mcg Inh) 1 puffs INH DAILY [facility]; Protocol Stop: 01/08/20 08:59 Last Admin: 12/11/19 09:58 Dose: 1 puffs Documented by: [id number] Cosigned by: [id number] Admin: 12/10/19 07:57 Dose: 1 puffs Documented by: [id number] Admin: 12/09/19 08:56 Dose: 1 puffs Documented by: [id number] Methylprednisolone 60 mg/ (Syringe) 0.96 mls @ 1.5 mls/min IV Q12H [facility] Stop: 01/07/20 17:59 Last Admin: 12/11/19 05:39 Dose: 1.5 mls/min Documented by: [id number] Admin: 12/10/19 16:53 Dose: 1.5 mls/min Documented by: [id number] Admin: 12/10/19 05:31 Dose: 1.5 mls/min Documented by: [id number] Admin: 12/09/19 18:09 Dose: 1.5 mls/min Documented by: [id number] Admin: 12/09/19 06:02 Dose: 1.5 mls/min Documented by: [id number] Admin: 12/08/19 17:24 Dose: 1.5 mls/min Documented by: [id number] Imipenem/Cilastatin Sodium 500 (mg/ Dextrose) 110 mls @ 110 mls/hr IV Q8H [facility]; Protocol Stop: 12/23/19 15:59 Last Infusion: 12/11/19 08:59 Dose: 0 mls/hr Documented by: [id number] Admin: 12/11/19 07:55 Dose: 110 mls/hr Documented by: [id number] Cosigned by: [id number] Infusion: 12/11/19 00:55 Dose: 0 mls/hr Documented by: [id number] Admin: 12/10/19 23:54 Dose: 110 mls/hr Documented by: [id number] Infusion: 12/10/19 17:50 Dose: 0 mls/hr Documented by: [id number] Admin: 12/10/19 16:25 Dose: 110 mls/hr Documented by: [id number] Infusion: 12/10/19 08:55 Dose: 0 mls/hr Documented by: [id number] Admin: 12/10/19 07:51 Dose: 110 mls/hr Documented by: [id number] Infusion: 12/10/19 00:57 Dose: 0 mls/hr Documented by: [id number] Admin: 12/09/19 23:47 Dose: 110 mls/hr Documented by: [id number] Infusion: 12/09/19 19:20 Dose: 0 mls/hr Documented by: [id number] Admin: 12/09/19 18:08 Dose: 110 mls/hr Documented by: [id number] Furosemide 40 mg/ Syringe 4 mls @ 4 mls/min IV DAILY [facility] Stop: 01/08/20 12:29 Last Admin: 12/11/19 10:07 Dose: 4 mls/min Documented by: [id number] Cosigned by: [id number] Admin: 12/10/19 07:54 Dose: 4 mls/min Documented by: [id number] Admin: 12/09/19 14:15 Dose: 4 mls/min Documented by: [id number] Albumin Human (Albumin 25%) 50 mls @ 50 mls/hr IV DAILY [facility] Stop: 12/12/19 09:59 Last Infusion: 12/09/19 15:08 Dose: 0 mls/hr Documented by: [id number] Admin: 12/09/19 14:07 Dose: 50 mls/hr Documented by: [id number] Diltiazem HCl 125 mg/ Dextrose 125 mls @ 10 mls/hr IV .[id number] [facility]; Protocol Stop: 01/08/20 13:59 Last Titration: 12/11/19 07:08 Dose: 10 mg/hr, 10 mls/hr Documented by: [id number] Cosigned by: [id number] Admin: 12/11/19 02:28 Dose: 10 mg/hr, 10 mls/hr Documented by: [id number] Cosigned by: [id number] Titration: 12/11/19 01:45 Dose: 10 mg/hr, 10 mls/hr Documented by: [id number] Cosigned by: [id number] Admin: 12/10/19 13:15 Dose: 10 mg/hr, 10 mls/hr Documented by: [id number] Cosigned by: [id number] Titration: 12/10/19 13:15 Dose: 0 mg/hr, 0 mls/hr Documented by: [id number] Cosigned by: [id number] Titration: 12/10/19 07:14 Dose: 10 mg/hr, 10 mls/hr Documented by: [id number] Cosigned by: [id number] Admin: 12/10/19 00:40 Dose: 10 mg/hr, 10 mls/hr Documented by: [id number] Cosigned by: [id number] Titration: 12/10/19 00:40 Dose: 10 mg/hr, 10 mls/hr Documented by: [id number] Cosigned by: [id number] Titration: 12/09/19 19:19 Dose: 10 mg/hr, 10 mls/hr Documented by: [id number] Cosigned by: [id number] Titration: 12/09/19 15:24 Dose: 10 mg/hr, 10 mls/hr Documented by: [id number] Cosigned by: [id number] Admin: 12/09/19 14:25 Dose: 5 mg/hr, 5 mls/hr Documented by: [id number] Cosigned by: [id number] Vancomycin HCl 1,500 mg/ (Sodium Chloride) 530 mls @ 200 mls/hr IV TODAY@0800 ONE Stop: 12/11/19 10:38 Last Admin: 12/11/19 09:42 Dose: 200 mls/hr Documented by: [id number] Insulin Aspart (Novolog Flexpen) 0 units SC ACHS [facility] Stop: 01/08/20 17:14 Last Admin: 12/11/19 09:02 Dose: 9 units Documented by: [id number] Cosigned by: [id number] Admin: 12/10/19 21:04 Dose: 3 units Documented by: [id number] Cosigned by: [id number] Admin: 12/10/19 16:52 Dose: 6 units Documented by: [id number] Cosigned by: [id number] Admin: 12/10/19 11:50 Dose: 8 units Documented by: [id number] Cosigned by: [id number] Admin: 12/10/19 07:50 Dose: 7 units Documented by: [id number] Cosigned by: [id number] Admin: 12/09/19 21:34 Dose: 15 units Documented by: [id number] Cosigned by: [id number] Admin: 12/09/19 18:10 Dose: 11 units Documented by: [id number] Cosigned by: [id number] Insulin Glargine (Lantus Solostar Pen) 0 units SC BID [facility]; Protocol Stop: 01/09/20 20:59 Last Admin: 12/11/19 10:05 Dose: 15 units Documented by: [id number] Cosigned by: [id number] Admin: 12/10/19 21:03 Dose: 15 units Documented by: [id number] Cosigned by: [id number] Ipratropium [place] (Atrovent 0.02% 0.5mg/2.5ml) 0.5 mg NEB Q8R [facility] Stop: 01/07/20 16:14 Last Admin: 12/11/19 07:10 Dose: 0.5 mg Documented by: [id number] Admin: 12/10/19 22:08 Dose: 0.5 mg Documented by: [id number] Admin: 12/10/19 15:02 Dose: 0.5 mg Documented by: [id number] Admin: 12/10/19 06:58 Dose: 0.5 mg Documented by: [id number] Admin: 12/09/19 23:20 Dose: 0.5 mg Documented by: [id number] Admin: 12/09/19 14:53 Dose: 0.5 mg Documented by: [id number] Admin: 12/09/19 07:04 Dose: 0.5 mg Documented by: [id number] Admin: 12/08/19 23:44 Dose: Not Given Documented by: [id number] Admin: 12/08/19 16:19 Dose: Not Given Documented by: [id number] Levothyroxine Sodium (Synthroid) 112 mcg PO DAILYBB [facility] Stop: 01/08/20 06:29 Last Admin: 12/11/19 05:37 Dose: 112 mcg Documented by: [id number] Admin: 12/10/19 05:55 Dose: 112 mcg Documented by: [id number] Admin: 12/09/19 08:55 Dose: 112 mcg Documented by: [id number] Miscellaneous (Order Awaiting Action) 1 ea N/A QS [facility] Stop: 01/07/20 15:59 Last Admin: 12/11/19 08:58 Dose: Not Given Documented by: [id number] Admin: 12/10/19 22:08 Dose: Not Given Documented by: [id number] Admin: 12/10/19 20:06 Dose: Not Given Documented by: [id number] Admin: 12/10/19 20:06 Dose: Not Given Documented by: [id number] Admin: 12/09/19 23:27 Dose: Not Given Documented by: [id number] Admin: 12/09/19 16:20 Dose: Not Given Documented by: [id number] Admin: 12/09/19 08:57 Dose: Not Given Documented by: [id number] Admin: 12/09/19 01:14 Dose: Not Given Documented by: [id number] Admin: 12/08/19 16:38 Dose: Not Given Documented by: [id number] Miscellaneous (Order Awaiting Action) 1 ea N/A QS [facility] Stop: 01/08/20 00:00 Last Admin: 12/11/19 08:58 Dose: Not Given Documented by: [id number] Admin: 12/10/19 22:08 Dose: Not Given Documented by: [id number] Admin: 12/10/19 20:06 Dose: Not Given Documented by: [id number] Admin: 12/10/19 20:06 Dose: Not Given Documented by: [id number] Admin: 12/09/19 23:27 Dose: Not Given Documented by: [id number] Admin: 12/09/19 16:20 Dose: Not Given Documented by: [id number] Admin: 12/09/19 08:57 Dose: Not Given Documented by: [id number] Admin: 12/09/19 01:14 Dose: Not Given Documented by: [id number] Miscellaneous (Fentanyl Patch Check Placement) 1 ea N/A QS [facility] Stop: 01/08/20 00:00 Last Admin: 12/11/19 08:08 Dose: 1 ea Documented by: [id number] Cosigned by: [id number] Admin: 12/10/19 23:54 Dose: 1 ea Documented by: [id number] Admin: 12/10/19 16:52 Dose: 1 ea Documented by: [id number] Admin: 12/10/19 07:51 Dose: 1 ea Documented by: [id number] Admin: 12/09/19 23:44 Dose: 1 ea Documented by: [id number] Admin: 12/09/19 16:20 Dose: 1 ea Documented by: [id number] Admin: 12/09/19 08:57 Dose: 1 ea Documented by: [id number] Admin: 12/09/19 00:00 Dose: 1 ea Documented by: [id number] Montelukast Sodium (Singulair) 10 mg PO PM [facility] Stop: 01/07/20 20:59 Last Admin: 12/10/19 21:00 Dose: 10 mg Documented by: [id number] Admin: 12/09/19 21:30 Dose: 10 mg Documented by: [id number] Admin: 12/08/19 21:40 Dose: 10 mg Documented by: [id number] Multivitamins (Multivitamin Tab) 1 tab PO QAM [facility] Stop: 01/08/20 08:59 Last Admin: 12/11/19 10:09 Dose: 1 tab Documented by: [id number] Cosigned by: [id number] Admin: 12/10/19 07:55 Dose: 1 tab Documented by: [id number] Admin: 12/09/19 08:55 Dose: 1 tab Documented by: [id number] Oxycodone HCl (Roxicodone Immediate Rel) 5 mg PO QID PRN PRN Reason: Pain Stop: 12/24/19 09:25 Last Admin: 12/10/19 11:18 Dose: 5 mg Documented by: [id number] Polyethylene Glycol (Miralax Powder Packet) 17 gm PO DAILY PRN PRN Reason: Constipation Stop: 01/07/20 15:05 Last Admin: 12/10/19 20:58 Dose: 17 gm Documented by: [id number] Admin: 12/09/19 21:27 Dose: 17 gm Documented by: [id number] Potassium Chloride (Klor-Con M20) 40 meq PO QAM [facility] Stop: 01/09/20 09:29 Last Admin: 12/11/19 10:02 Dose: 40 meq Documented by: [id number] Cosigned by: [id number] Admin: 12/10/19 11:18 Dose: 40 meq Documented by: [id number] Ropinirole HCl (Requip) 1 mg PO QID [facility] Stop: 01/07/20 16:59 Last Admin: 12/11/19 10:09 Dose: 1 mg Documented by: [id number] Cosigned by: [id number] Admin: 12/10/19 20:59 Dose: 1 mg Documented by: [id number] Admin: 12/10/19 16:53 Dose: 1 mg Documented by: [id number] Admin: 12/10/19 14:02 Dose: 1 mg Documented by: [id number] Admin: 12/10/19 07:55 Dose: 1 mg Documented by: [id number] Admin: 12/09/19 21:30 Dose: 1 mg Documented by: [id number] Admin: 12/09/19 18:09 Dose: 1 mg Documented by: [id number] Admin: 12/09/19 14:08 Dose: 1 mg Documented by: [id number] Admin: 12/09/19 08:55 Dose: 1 mg Documented by: [id number] Admin: 12/08/19 21:40 Dose: 1 mg Documented by: [id number] Admin: 12/08/19 17:24 Dose: 1 mg Documented by: [id number] Umeclidinium [place] (Incruse Ellipta) [facility] [place] Protocol Stop: 01/08/20 08:59 Last Admin: 12/11/19 10:01 Dose: 1 puffs Documented by: [id number] Cosigned by: [id number] Admin: 12/10/19 07:56 Dose: 1 puffs Documented by: [id number] Admin: 12/09/19 08:56 Dose: 1 puffs Documented by: [id number] Discontinued Medications Carvedilol (Coreg) 3.125 mg PO BID [facility] Stop: 01/08/20 12:14 Last Admin: 12/10/19 07:55 Dose: 3.125 mg Documented by: [id number] Admin: 12/09/19 21:28 Dose: 3.125 mg Documented by: [id number] Admin: 12/09/19 14:07 Dose: 3.125 mg Documented by: [id number] Diltiazem HCl (Cardizem) 10 mg IV NOW STA Stop: 12/08/19 11:19 Last Admin: 12/08/19 11:24 Dose: 10 mg Documented by: [id number] Cosigned by: [id number] Diltiazem HCl (Cardizem) 10 mg IV NOW STA Stop: 12/08/19 11:48 Last Admin: 12/08/19 12:05 Dose: 10 mg Documented by: [id number] Cosigned by: [id number] Sodium Chloride (Nss) 500 mls @ 999 mls/hr IV .Q31M [facility] Stop: 12/08/19 11:15 Last Infusion: 12/08/19 11:39 Dose: 0 mls/hr Documented by: [id number] Admin: 12/08/19 10:39 Dose: 999 mls/hr Documented by: [id number] Sodium Chloride (Nss 1000ml) 1,000 mls @ 150 mls/hr IV .Q6H40M [facility] Stop: 01/07/20 10:44 Last Infusion: 12/08/19 13:11 Dose: 0 mls/hr Documented by: [id number] Admin: 12/08/19 11:39 Dose: 150 mls/hr Documented by: [id number] Vancomycin HCl 2,750 mg/ (Sodium Chloride) 555 mls @ 200 mls/hr IV NOW ONE Stop: 12/08/19 13:18 Last Infusion: 12/08/19 14:19 Dose: 0 mls/hr Documented by: [id number] Admin: 12/08/19 11:23 Dose: 200 mls/hr Documented by: [id number] Cefepime HCl (Maxipime) 20 mls @ 5 mls/min IV NOW STA Stop: 12/08/19 10:38 Last Admin: 12/08/19 11:24 Dose: 5 mls/min Documented by: [id number] Amiodarone HCl/Dextrose (Nexterone / D5w) 150 mg in 100 mls @ 600 mls/hr IV 1230 ONE Stop: 12/08/19 12:39 Last Infusion: 12/08/19 13:10 Dose: 0 mls/hr Documented by: [id number] Cosigned by: [id number] Admin: 12/08/19 12:59 Dose: 600 mls/hr Documented by: [id number] Cosigned by: [id number] Amiodarone HCl/Dextrose (Nexterone / D5w) 360 mg in 200 mls @ 33.333 mls/hr IV .Q6H [facility] Stop: 12/08/19 18:45 Last Admin: 12/09/19 07:18 Dose: Not Given Documented by: [id number] Infusion: 12/08/19 18:31 Dose: 0 mg/min, 0 mls/hr Documented by: [id number] Cosigned by: [id number] Admin: 12/08/19 13:11 Dose: 1 mg/min, 33.3 mls/hr Documented by: [id number] Cosigned by: [id number] Amiodarone HCl/Dextrose (Nexterone / D5w) 360 mg in 200 mls @ 16.667 mls/hr IV .Q12H [facility] Stop: 01/07/20 18:44 Last Infusion: 12/09/19 14:16 Dose: 0 mg/min, 0 mls/hr Documented by: [id number] Cosigned by: [id number] Admin: 12/09/19 06:01 Dose: 0.5 mg/min, 16.7 mls/hr Documented by: [id number] Cosigned by: [id number] Infusion: 12/09/19 06:01 Dose: 0.5 mg/min, 16.7 mls/hr Documented by: [id number] Cosigned by: [id number] Admin: 12/08/19 18:31 Dose: 0.5 mg/min, 16.7 mls/hr Documented by: [id number] Cosigned by: [id number] Imipenem/Cilastatin Sodium 300 (mg/ Dextrose) 106 mls @ 106 mls/hr IV Q6H [facility]; Protocol Stop: 12/18/19 15:59 Last Infusion: 12/09/19 11:11 Dose: 0 mls/hr Documented by: [id number] Admin: 12/09/19 09:58 Dose: 100 mls/hr Documented by: [id number] Infusion: 12/09/19 05:19 Dose: 0 mls/hr Documented by: [id number] Admin: 12/09/19 04:15 Dose: 100 mls/hr Documented by: [id number] Infusion: 12/08/19 23:18 Dose: 0 mls/hr Documented by: [id number] Admin: 12/08/19 22:14 Dose: 100 mls/hr Documented by: [id number] Infusion: 12/08/19 19:24 Dose: 0 mls/hr Documented by: [id number] Admin: 12/08/19 18:24 Dose: 106 mls/hr Documented by: [id number] Furosemide 40 mg/ Syringe 4 mls @ 4 mls/min IV ONE ONE Stop: 12/09/19 00:22 Last Admin: 12/09/19 00:52 Dose: 4 mls/min Documented by: [id number] Vancomycin HCl 1,500 mg/ (Sodium Chloride) 530 mls @ 200 mls/hr IV ONE ONE Stop: 12/09/19 13:38 Last Infusion: 12/09/19 16:21 Dose: 0 mls/hr Documented by: [id number] Admin: 12/09/19 12:31 Dose: 200 mls/hr Documented by: [id number] Diltiazem HCl 15 mg/ Syringe 3 mls @ 1.5 mls/min IV TODAY@1400 ONE Stop: 12/09/19 14:01 Last Admin: 12/09/19 14:25 Dose: 1.5 mls/min Documented by: [id number] Cosigned by: [id number] Vancomycin HCl 1,500 mg/ (Sodium Chloride) 530 mls @ 200 mls/hr IV TODAY@1100 ONE Stop: 12/10/19 13:38 Last Infusion: 12/10/19 14:00 Dose: 0 mls/hr Documented by: [id number] Admin: 12/10/19 11:18 Dose: 200 mls/hr Documented by: [id number] Insulin Aspart (Novolog Flexpen) 0 units SC TODAY@0000,0400 [facility] Stop: 12/10/19 04:01 Last Admin: 01/28/20 04:07 Dose: Not Given Documented by: [id number] Admin: 12/09/19 23:44 Dose: Not Given Documented by: [id number] Cosigned by: [id number] Insulin Glargine (Lantus Solostar Pen) 30 units SC NOW ONE Stop: 12/09/19 17:16 Last Admin: 12/09/19 18:10 Dose: 30 units Documented by: [id number] Cosigned by: [id number] Insulin Glargine (Lantus Solostar Pen) 15 units SC TODAY@1130 ONE Stop: 12/10/19 11:31 Last Admin: 12/10/19 11:49 Dose: 15 units Documented by: [id number] Cosigned by: [id number] Critical Care Time Critical Care Time: Yes Total Critical Care Time: 60 I have personally spent 60 minutes of critical care time in the direct management of this patient. This includes bedside care, interpretation of diagnostic studies, and testing, discussion with consultants, patient, and family members, and other required patient management activities. This 60 minutes is in excess of all separately billable procedures. Medical Decision Making Differential Diagnosis Differential diagnosis: Etiologies such as viral syndrome, otitis, pharyngitis, pneumonia, influenza, meningitis, urinary tract infection, sepsis, bacteremia, as well as others were entertained. Medical Records Attestation: I reviewed the patient's medical records. Home Medications Current Medication List: was personally reviewed by me Laboratory Data Attestation: I reviewed the patient's lab results. Result diagrams: 12/11/19 05:39 12/11/19 05:39 Lab Results 12/08/19 12/08/19 12/08/19 Range/Units 10:28 10:28 10:28 WBC 31.12 H* (4.8-10.8) K/uL RBC 2.63 L (4.2-5.4) M/uL Hgb 9.0 L (12.0-16.0) g/dL Hct 27.2 L (37-47) % MCV 103.4 H (80-100) fL MCH 34.2 H (25-34) pg MCHC 33.1 (32-36) g/dL RDW Std Deviation 76.5 H (36.4-46.3) fL RDW Coeff of Marta 20.2 H (11.5-14.5) % Plt Count 16 L* (130-400) K/uL Neutrophils % (Manual) 94.0 % Monocytes % (Manual) 5.0 % Myelocytes % (Man) 1.0 % Neutrophils # (Manual) 29.25 H (1.4-6.5) K/uL Total Absolute Neuts 29.25 H (1.4-6.5) K/uL Total Abs Lymphocytes 0.00 L (1.2-3.4) K/uL Monocytes # (Manual) 1.56 H (0.11-0.59) K/uL Myelocytes # (Manual) 0.31 H (0-0) K/uL Hypogranular Neuts 2+ Platelet Estimate SIGNIFIC DECREASED (Normal) Giant Platelets 1+ Anisocytosis Present PT 15.6 H (9.0-12.0) Seconds INR 1.6 H (0.9-1.1) Sodium 138 (136-145) mmol/L Potassium 4.5 (3.5-5.1) mmol/L Chloride 100 (98-107) mmol/L Carbon Dioxide 32 (21-32) mmol/L Anion Gap 6.0 (3-11) BUN 49 H (7-18) mg/dl Creatinine 1.72 H (0.6-1.2) mg/dl Est Cr Clr Drug Dosing 32.4 ml/min Est GFR ( Amer) 30.2 Est GFR (Non-Af Amer) 26.1 BUN/Creatinine Ratio 28.3 H (10-20) Glucose 153 H (70-99) mg/dl Lactate (0.4-2.0) mmol/L Calcium 9.6 (8.5-10.1) mg/dl Magnesium (1.8-2.4) mg/dl Total Bilirubin 1.3 H (0.2-1) mg/dl AST 25 (15-37) U/L ALT 33 (12-78) U/L Alkaline Phosphatase 124 H (45-117) U/L Troponin I 0.046 H* (0-0.045) ng/ml NT-Pro-B Natriuret Pep (0-1800) pg/ml Total Protein 5.5 L (6.4-8.2) gm/dl Albumin 2.3 L (3.4-5.0) gm/dl Globulin 3.2 (2.5-4.0) gm/dl Albumin/Globulin Ratio 0.7 L (0.9-2) Procalcitonin (0-0.5) ng/ml TSH (0.300-4.500) uIu/ml Urine Color Urine Appearance (Clear) Urine pH (4.5-7.5) Ur Specific [place] (1.000-1.030) Urine Protein (Negative) Urine Glucose (UA) (Negative) Urine Ketones (Negative) Urine Blood (Negative) Urine Nitrite (Negative) Urine Bilirubin (Negative) Urine Urobilinogen (Negative) Ur Leukocyte Esterase (Negative) Urine WBC (Auto) (0-5) /hpf Urine RBC (Auto) (0-4) /hpf U Hyaline Cast (Auto) (0-5) /lpf U Epithel Cells (Auto) (0-5) /lpf Urine Bacteria (Auto) (Negative) Ur Renal Epithelial Cell Urine Mucus (None Prsent) Urine Yeast 12/08/19 12/08/19 12/08/19 Range/Units 10:28 10:28 11:01 WBC (4.8-10.8) K/uL RBC (4.2-5.4) M/uL Hgb (12.0-16.0) g/dL Hct (37-47) % MCV (80-100) fL MCH (25-34) pg MCHC (32-36) g/dL RDW Std Deviation (36.4-46.3) fL RDW Coeff of Marta (11.5-14.5) % Plt Count (130-400) K/uL Neutrophils % (Manual) % Monocytes % (Manual) % Myelocytes % (Man) % Neutrophils # (Manual) (1.4-6.5) K/uL Total Absolute Neuts (1.4-6.5) K/uL Total Abs Lymphocytes (1.2-3.4) K/uL Monocytes # (Manual) (0.11-0.59) K/uL Myelocytes # (Manual) (0-0) K/uL Hypogranular Neuts Platelet Estimate (Normal) Giant Platelets Anisocytosis PT (9.0-12.0) Seconds INR (0.9-1.1) Sodium (136-145) mmol/L Potassium (3.5-5.1) mmol/L Chloride (98-107) mmol/L Carbon Dioxide (21-32) mmol/L Anion Gap (3-11) BUN (7-18) mg/dl Creatinine (0.6-1.2) mg/dl Est Cr Clr Drug Dosing ml/min Est GFR ( Amer) Est GFR (Non-Af Amer) BUN/Creatinine Ratio (10-20) Glucose (70-99) mg/dl Lactate (0.4-2.0) mmol/L Calcium (8.5-10.1) mg/dl Magnesium 2.0 (1.8-2.4) mg/dl Total Bilirubin (0.2-1) mg/dl AST (15-37) U/L ALT (12-78) U/L Alkaline Phosphatase (45-117) U/L Troponin I (0-0.045) ng/ml NT-Pro-B Natriuret Pep 51374 H (0-1800) pg/ml Total Protein (6.4-8.2) gm/dl Albumin (3.4-5.0) gm/dl Globulin (2.5-4.0) gm/dl Albumin/Globulin Ratio (0.9-2) Procalcitonin 24.85 H (0-0.5) ng/ml TSH 0.548 (0.300-4.500) uIu/ml Urine Color Dark Yellow Urine Appearance Slightly Cloudy A (Clear) Urine pH 5.0 (4.5-7.5) Ur Specific [place] 1.021 (1.000-1.030) Urine Protein 1+ H (Negative) Urine Glucose (UA) Negative (Negative) Urine Ketones Trace H (Negative) Urine Blood 2+ H (Negative) Urine Nitrite Negative (Negative) Urine Bilirubin Negative (Negative) Urine Urobilinogen Negative (Negative) Ur Leukocyte Esterase 1+ H (Negative) Urine WBC (Auto) 5-10 H (0-5) /hpf Urine RBC (Auto) 5-10 H (0-4) /hpf U Hyaline Cast (Auto) 1-5 (0-5) /lpf U Epithel Cells (Auto) >30 H (0-5) /lpf Urine Bacteria (Auto) 3+ H (Negative) Ur Renal Epithelial Cell Not Reportable Urine Mucus Present A (None Prsent) Urine Yeast Not Reportable 12/08/19 Range/Units 11:16 WBC (4.8-10.8) K/uL RBC (4.2-5.4) M/uL Hgb (12.0-16.0) g/dL Hct (37-47) % MCV (80-100) fL MCH (25-34) pg MCHC (32-36) g/dL RDW Std Deviation (36.4-46.3) fL RDW Coeff of Marta (11.5-14.5) % Plt Count (130-400) K/uL Neutrophils % (Manual) % Monocytes % (Manual) % Myelocytes % (Man) % Neutrophils # (Manual) (1.4-6.5) K/uL Total Absolute Neuts (1.4-6.5) K/uL Total Abs Lymphocytes (1.2-3.4) K/uL Monocytes # (Manual) (0.11-0.59) K/uL Myelocytes # (Manual) (0-0) K/uL Hypogranular Neuts Platelet Estimate (Normal) Giant Platelets Anisocytosis PT (9.0-12.0) Seconds INR (0.9-1.1) Sodium (136-145) mmol/L Potassium (3.5-5.1) mmol/L Chloride (98-107) mmol/L Carbon Dioxide (21-32) mmol/L Anion Gap (3-11) BUN (7-18) mg/dl Creatinine (0.6-1.2) mg/dl Est Cr Clr Drug Dosing ml/min Est GFR ( Amer) Est GFR (Non-Af Amer) BUN/Creatinine Ratio (10-20) Glucose (70-99) mg/dl Lactate 2.0 (0.4-2.0) mmol/L Calcium (8.5-10.1) mg/dl Magnesium (1.8-2.4) mg/dl Total Bilirubin (0.2-1) mg/dl AST (15-37) U/L ALT (12-78) U/L Alkaline Phosphatase (45-117) U/L Troponin I (0-0.045) ng/ml NT-Pro-B Natriuret Pep (0-1800) pg/ml Total Protein (6.4-8.2) gm/dl Albumin (3.4-5.0) gm/dl Globulin (2.5-4.0) gm/dl Albumin/Globulin Ratio (0.9-2) Procalcitonin (0-0.5) ng/ml TSH (0.300-4.500) uIu/ml Urine Color Urine Appearance (Clear) Urine pH (4.5-7.5) Ur Specific [place] (1.000-1.030) Urine Protein (Negative) Urine Glucose (UA) (Negative) Urine Ketones (Negative) Urine Blood (Negative) Urine Nitrite (Negative) Urine Bilirubin (Negative) Urine Urobilinogen (Negative) Ur Leukocyte Esterase (Negative) Urine WBC (Auto) (0-5) /hpf Urine RBC (Auto) (0-4) /hpf U Hyaline Cast (Auto) (0-5) /lpf U Epithel Cells (Auto) (0-5) /lpf Urine Bacteria (Auto) (Negative) Ur Renal Epithelial Cell Urine Mucus (None Prsent) Urine Yeast Imaging Data Radiologist's Impression: Radiology results as stated below per my review and the radiologist's interpretation: XR chest 1V portable HISTORY: 89 years-old Female fever acute fever COMPARISON: Chest radiographs 08/14/2019 TECHNIQUE: Portable AP view of the chest FINDINGS: Cardiac silhouette is enlarged. Mild pulmonary vascular congestion. Calcified plaque of the thoracic aortic arch. No pneumothorax. Blunting of the lateral right costophrenic angle suggests trace effusion. Minimal bibasilar densities suggest atelectasis. No airspace opacity typical for pneumonia. Degenerative changes of the shoulders and spine. Surgical clips project in the upper abdomen. Partially imaged spinal fusion hardware. IMPRESSION: 1. Cardiomegaly with pulmonary vascular congestion. 2. Suggested trace right pleural effusion. ACT 112: Negative or not required by law. The above report was generated using voice recognition software. It may contain grammatical, syntax or spelling errors. Electronically signed by: Sixto Breaux M.D. 12/08/2019 10:54 AM ECG Data Attestation: I personally reviewed and interpreted this ECG as follows: Indication: + SOB/dyspnea Rate (beats per minute): 153 Rhythm: + atrial fibrillation (with RVR) ECG Intervals/blocks: + Normal QT-c (424) ECG ST segments: no ST depression and no ST elevation ECG Findings: no PACs and no PVCs Blood Pressure Blood Pressure Findings: Low blood pressure MDM Narrative This pt was evaluated and appeared to be in no distress. IV access was obtained and lab work was drawn. Pt was placed on the monitor technician and found to be hypotensive in rapid AF. IVF were initiated although pt had some bleeding from IV site. INR is noted to be 1.6. CXR reveals pulmonary vascular congestion. Pt was medicated with IV cardizem for rapid AF. She was fairly stable on n/c O2 dispite fluid overload. POA and KARLO arrived at the bedside, confirmed her DNR status. Lab work reveals a marked elevated WBC and thrombocytopenia. Blood cx had been drawn and blood cx pending. IV cefepime and vancomycin were given for sepsis d/t cellulitis. Pt's case was d/w the hospitalist who will evaluate for further management. Impression & Plan Sepsis, Atrial fibrillation, Cellulitis of right lower extremity, Fluid ove rload, Thrombocytopenia, Chronic anticoagulation Discharge Plan Visit Data *Final* Discharge Date/Time: 12/08/19 14:36 Chief Complaint: Illness Stated Complaint: ILLNESS, CHEST PAIN, SOB ED Provider: Donna Avalos Discharge Problem: Sepsis, Atrial fibrillation, Cellulitis of right lower extremity, Fluid overload, Thrombocytopenia, Chronic anticoagulation Patient Disposition: Admitted As Inpatient Discharge Instructions Interventions: ED Discharge Assessment Last Done: 12/08/19 14:36 Discharge Problem: Sepsis Qualifiers: Sepsis type: sepsis due to unspecified organism Sepsis acute organ dysfunction status: unspecified Qualified Code(s): A41.9 - Sepsis, unspecified organism Atrial fibrillation Qualifiers: Atrial fibrillation type: unspecified Qualified Code(s): I48.91 - Unspecified atrial fibrillation Fluid overload Qualifiers: Hypervolemia type: other Qualified Code(s): E87.79 - Other fluid overload The scribe's documentation has been prepared under my direction and personally reviewed by me in its entirety. I confirm that the note above accurately re flects all work, treatment, procedures, and medical decision making performed by me.
[2019-12-08] MEDS ORDERED: methylPREDNISolone 125 MG/2 ML VIAL IV SCH (15:06)
[2019-12-08] MEDS ORDERED: CEFEPIME CONSULT ACTIVE PRN (15:06)
[2019-12-08] MEDS ORDERED: MAGNESIUM HYDROXIDE SUSP 30 ML UDC PO PRN (15:06)
[2019-12-08] MEDS ORDERED: bisacodyL 10 MG SUPP PR PRN (15:06)
[2019-12-08] MEDS ORDERED: guaiFENesin SUGAR FREE 100 MG/5 ML UDC PO PRN (15:06)
[2019-12-08] MEDS ORDERED: NON-FORMULARY MEDICATION (Fentanyl 1 PATCH) TD SCH (15:06)
[2019-12-08] MEDS ORDERED: ONDANSETRON INJ 2 MG/ML 2 ML VIAL IV PRN (15:06)
[2019-12-08] MEDS ORDERED: ALUMINUM/MAGNESIUM SUSP 30 ML UDC PO PRN (15:06)
[2019-12-08] MEDS ORDERED: GUAIFENESIN/CODEINE 200MG/20MG 10ML UDC PO PRN (15:06)
[2019-12-08] MEDS ORDERED: SODIUM CHLORIDE 0.65% NA SOLN 45 ML (OCEAN) NAE PRN (15:06)
[2019-12-08] MEDS ORDERED: IMIPENEM/CILASTATIN CONSULT ACTIVE PRN (15:55)
[2019-12-08] MEDS ORDERED: ERTAPENEM SODIUM 1,000 MG in SODIUM CHLORIDE 0.9% 50 ML IV SCH (16:00)
--- NOTE | 2019-12-08 16:09 | Pharmacy Report ---
Pharmacy Abx Initial Consult - Date of Service December 08, 2019 - Pharmacy Dosing Scope Date of Consult: 12/08/19 Consultation requested by: Dr. Anderson Pharmacy is consulted to initiate vancomycin and imipenem/cilastatin IV dosing therapy, order appropriate labs and adjust drug dose/frequency. - Subjective The patient is a 89 year old F admitted on 12/08/19 12:37. - Objective Height: 5 ft 6 in Weight: 138 kg Vital Signs (Past 12hrs): Vital Signs Temp Pulse Pulse Resp BP BP Pulse Ox 12/08/19 15:24 36.9 C 122 H 18 93/61 L 97 12/08/19 14:15 121 H 22 98/73 L 90 12/08/19 14:00 131 H 28 H 113/77 91 12/08/19 13:45 131 H 24 87/65 L 90 12/08/19 13:30 121 H 24 102/56 L 92 12/08/19 13:15 123 H 26 H 106/72 100 12/08/19 13:00 122 H 29 H 98/72 L 98 12/08/19 12:45 141 H 24 106/67 98 12/08/19 12:30 137 H 25 H 87/66 L 97 12/08/19 12:15 109 H 23 110/63 97 12/08/19 12:00 133 H 26 H 108/83 98 12/08/19 11:45 144 H 28 H 101/52 L 97 12/08/19 11:30 122 H 30 H 104/56 L 96 12/08/19 11:20 144 H 31 H 115/61 95 12/08/19 10:48 149 H 17 83/66 L 96 12/08/19 10:30 153 H 33 H 90/47 L 96 12/08/19 10:29 148 H 21 74/55 L 92 12/08/19 10:02 36.9 C 157 H 27 H 90/47 L 94 Lab Results (24hrs): Laboratory Tests (24 Hours) 12/08/19 12/08/19 12/08/19 10:28 10:28 10:28 WBC 31.12 H* Creatinine 1.72 H Est Cr Clr Drug Dosing 32.4 Procalcitonin 24.85 H Micro Results: 12/08/19 11:01 Urine Culture - Pending Urine,Straight Cath 12/08/19 11:16 Aerobic Blood Culture - Pending Blood Anaerobic Blood Culture - Pending 12/08/19 10:28 Aerobic Blood Culture - Pending Blood Anaerobic Blood Culture - Pending - Risk Factors for Resistance * Resident in a chcf or extended-care facility * 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 cellulitis of right lower extremity vs. pneumonia. Patient presents from [facility]. Urine culture from 12/07/19 growing gram-negative bacilli (patient has positive history of ESBL UTI and psuedomonas in blood). MRSA nasal swab pending. Blood cultures x 2 and urine culture obtained in ED (12/08): pending. WBC in ED of 31. SCr at 1.72 - baseline appears to be about 1 mg/dL. Procalcitonin: 25 ng/mL. Plan Vancomycin IV * Loading dose: 2750 mg (20 mg/kg) * Due to MICHI - resulting in an extended estimated half-life. Will obtain random lab in AM and redose when appropriate. Imipenem/cilastatin IV * Target dose of 500 mg IV q6h * 300 mg IV q6h for CrCl 32 mL/min - appropriate Pharmacy will continue to follow and will adjust dose/frequency as necessary. Thank you.
[2019-12-08] MEDS: IPRATROPIUM BROMIDE NEB SOLN 0.02% 2.5 ML VIAL NEB SCH ×2 (16:19→23:44)
[2019-12-08] MEDS: methylPREDNISolone 60 MG in SYRINGE 0 ML IV SCH (17:24)
[2019-12-08] MEDS: ROPINIROLE HCL 1 MG TABLET PO SCH ×2 (17:24→21:40)
--- NOTE | 2019-12-08 18:16 | Electrocardiogram Report ---
Test Reason : Blood Pressure : / mmHG Vent. Rate : 153 BPM Atrial Rate : 147 BPM P-R Int : 000 ms QRS Dur : 134 ms QT Int : 266 ms P-R-T Axes : 000 -23 012 degrees QTc Int : 424 ms Atrial fibrillation with rapid ventricular response Right bundle branch block Abnormal ECG When compared with ECG of 14-AUG-2019 14:23, Atrial fibrillation has replaced Sinus rhythm Vent. rate has increased BY 93 BPM Nonspecific T wave abnormality has replaced inverted T waves in Inferior leads Confirmed by Syed Marquez ([id number]) on 12/08/2019 6:15:50 PM Referred By: [facility] Confirmed By:Robert Marquez
[2019-12-08] MEDS: IMIPENEM/CILASTATIN SODIUM 300 MG in DEXTROSE 5% 100 ML IV SCH ×2 (18:24→22:14)
[2019-12-08] MEDS: BUDESONIDE 0.5 MG/2 ML VIAL (PULMICORT) INH SCH (19:20)
[2019-12-08] MEDS: DULOXETINE HCL 30 MG CAP PO SCH (21:39)
[2019-12-08] MEDS: MONTELUKAST SODIUM 10 MG TABLET PO SCH (21:40)
[2019-12-08] MEDS: DICLOFENAC SOD 1% GEL 100 GM TUBE EXT SCH (21:40)
[2019-12-08] MEDS: fentaNYL 25 MCG/HR TDSY TD SCH (21:40)
[2019-12-08] MEDS: fentaNYL 12 MCG/HR TDSY TD SCH (21:40)
[2019-12-08] MEDS ORDERED: CEFEPIME 2,000 MG in SYRINGE 7.5 ML IV SCH (23:00)
[2019-12-09] MEDS ORDERED: FUROSEMIDE 40 MG in SYRINGE 0 ML IV ONE (00:21)
[2019-12-09] MEDS: IMIPENEM/CILASTATIN SODIUM 300 MG in DEXTROSE 5% 100 ML IV SCH ×2 (04:15→09:58)
[2019-12-09] MEDS: AMIODARONE / D5W 360 MG/200 ML BAG IV SCH ×2 (06:01→07:18)
[2019-12-09] MEDS: methylPREDNISolone 60 MG in SYRINGE 0 ML IV SCH ×2 (06:02→18:09)
[2019-12-09] MEDS: BUDESONIDE 0.5 MG/2 ML VIAL (PULMICORT) INH SCH ×2 (07:04→19:23)
[2019-12-09] MEDS: IPRATROPIUM BROMIDE NEB SOLN 0.02% 2.5 ML VIAL NEB SCH ×3 (07:04→23:20)
[2019-12-09 07:06] LABS: Nucleated RBC # (auto) 0.02 K/uL (0-0); Nucleated RBC % (auto) 0.1 %
[2019-12-09 07:21] LABS: Hemoglobin 8.8 g/dL (12.0-16.0); Mean Corpuscular Hemoglobin 34.2 pg (25-34); Mean Corpuscular Hgb Conc 33.8 g/dL (32-36); Mean Corpuscular Volume 101.2 fL (80-100); RDW Coefficient of Variation 20.1 % (11.5-14.5); RDW Standard Deviation 74.5 fL (36.4-46.3); Red Blood Count 2.57 M/uL (4.2-5.4); White Blood Count 24.19 K/uL (4.8-10.8)
[2019-12-09 07:25] LABS: ALC (manual) 1.06 K/uL (1.2-3.4); ANC (manual) 21.41 K/uL (1.4-6.5); Anisocytosis Present; Hypogranular Neutrophils 2+; Lymphocytes # (manual) 1.06 K/uL (1.2-3.4); Lymphocytes % (manual) 4.4 %; Monocytes % (manual) 6.2 %; Myelocytes # (manual) 0.22 K/uL (0-0); Myelocytes % (manual) 0.9 %; Neutrophils # (manual) 21.41 K/uL (1.4-6.5); Neutrophils % (manual) 88.5 %; Platelet Count 44 K/uL (130-400); Platelet Estimate Decreased (Normal); Target Cells 1+
[2019-12-09 07:51] LABS: Estimated Average Glucose 123 mg/dl; Hemoglobin A1C 5.9 % (4.5-5.6)
[2019-12-09 07:52] LABS: Albumin Globulin Ratio 0.6 (0.9-2); Albumin Level 2.3 gm/dl (3.4-5.0); BUN Creatinine Ratio 36.1 (10-20); Bilirubin,Total 0.5 mg/dl (0.2-1); Est GFR (African American) 38.1; Est GFR (Non-African American) 32.9; Globulin 3.9 gm/dl (2.5-4.0); Potassium 3.8 mmol/L (3.5-5.1); Total Protein 6.2 gm/dl (6.4-8.2)
[2019-12-09] MEDS: allopurinoL 100 MG TAB PO SCH (08:54)
[2019-12-09] MEDS: DICLOFENAC SOD 1% GEL 100 GM TUBE EXT SCH ×2 (08:54→21:30)
[2019-12-09] MEDS: LEVOTHYROXINE SODIUM 112 MCG TABLET PO SCH (08:55)
[2019-12-09] MEDS: ROPINIROLE HCL 1 MG TABLET PO SCH ×4 (08:55→21:30)
[2019-12-09] MEDS: MULTIVITAMIN TAB PO SCH (08:55)
[2019-12-09] MEDS: UMECLIDINIUM BROMIDE 62.5MCG/BLISTER 7 PUFFS/INHALER INH SCH (08:56)
[2019-12-09] MEDS: FLUTICASONE/VILANTEROL 100/25MCG 14 PUFFS/INHALER INH SCH (08:56)
[2019-12-09] MEDS: FLUTICASONE PROPIONATE NA SPR 16 GM BTL NAE SCH (08:56)
[2019-12-09] MEDS: CHECK FENTANYL PATCH PLACEMENT SCH ×4 (08:57→23:44)
[2019-12-09] MEDS: ACETAMINOPHEN 325 MG TAB PO PRN ×2 (09:09→14:24)
--- NOTE | 2019-12-09 09:59 | Infectious Disease Consult ---
Date of Consultation December 09, 2019 Assessment & Plan (1) Cellulitis of right lower extremity: continue imipenem, would give 7 days total. continue vanco for cellulitis, level today 18, can change to po doxy 100mg po bid x 10 days upon d/c. (2) UTI (urinary tract infection): History of Present Illness Attending Physician: Elenita Anderson MD pt admitted with change in mental status. she states she is overall feeling better. In ER was found to have low grade fever 37.3, wbc was elevated at 31, improved to 24 today. UA had only 5-10 wbc >30 ep cells. [address]ia in place. flu negative. Blood and urine cultures done, blood cultures are negative, urine culture is growing ESBL+ E. coli, sensitive to imipenem, she was placed on this and doing well. ID consulted for antibiotic approval. she is eating and drinking, no abd pain, no n/v/d. no cp, sob, cough. Allergies Allergy/AdvReac Type Severity Reaction Status Date / Time enoxaparin Allergy Intermediate RASH, Verified 12/08/19 10:57 PRURITUS Home Medications Home Medications Medication Instructions Recorded Confirmed Type Prilosec OTC 20 mg PO QAM 09/07/18 12/08/19 History Spiriva with HandiHaler 1 cap INHALATION QAM 09/07/18 12/08/19 History allopurinol 100 mg PO QAM 09/07/18 12/08/19 History duloxetine 30 mg PO QPM 09/07/18 12/08/19 History gabapentin 600 mg PO HS 09/07/18 12/08/19 History montelukast [Singulair] 10 mg PO PM 09/07/18 12/08/19 History Restasis MultiDose 1 drp OPHTHALMIC (EYE) BID 11/06/18 12/08/19 History acetaminophen 325 - 650 mg PO Q6H PRN MDD 3G 11/06/18 12/08/19 History albuterol sulfate [Ventolin HFA] 2 puff INHALATION Q4H PRN 11/06/18 12/08/19 History azelastine 2 spray INTRANASAL QAM 11/06/18 12/08/19 History fluticasone propionate [Flonase 2 spray INTRANASAL DAILY 11/06/18 12/08/19 History Allergy Relief] multivitamin 1 tab PO QAM 11/06/18 12/08/19 History acetaminophen [Tylenol Extra 1,000 mg PO HS 02/02/19 12/08/19 History Strength] diclofenac sodium [Voltaren] 2 g TOPICAL BID 02/02/19 12/08/19 History sodium chloride [Irwin Nasal] 1 spray INTRANASAL UD PRN 02/02/19 12/08/19 History gabapentin 200 mg PO BID 07/14/19 12/08/19 History polyethylene glycol 3350 [Miralax] 17 g PO PM 07/14/19 12/08/19 History Fleet Enema 118 ml ME DAILY PRN 07/30/19 12/08/19 History bisacodyl 10 mg ME DAILY PRN 07/30/19 12/08/19 History fluticasone propion-salmeterol 1 puff INHALATION Q12H 07/30/19 12/08/19 History [Advair Diskus] albuterol sulfate 2.5 mg INH QID #90 ml 08/16/19 12/08/19 Rx codeine-guaifenesin 10 ml PO Q6H PRN #118 ml 08/16/19 12/08/19 Rx fentanyl 1 patch TD Q72H #5 ea 08/16/19 12/08/19 Rx oxycodone 5 mg PO DAILY PRN #30 tab 08/16/19 12/08/19 Rx oxycodone 10 mg PO DAILY PRN #30 tab 08/16/19 12/08/19 Rx carvedilol 3.125 mg tablet 3.125 mg PO BID tab 09/09/19 12/08/19 History budesonide 0.5 mg/2 mL suspension 2 ml INH BID 09/11/19 12/08/19 History for nebulization furosemide 40 mg tablet 40 mg PO DAILY #30 tab 09/11/19 12/08/19 Rx ropinirole 1 mg tablet 1 mg PO QID #90 tab 09/11/19 12/08/19 Rx guaifenesin 100 mg/5 mL oral liquid 200 mg PO Q4H PRN 11/28/19 12/08/19 History prednisone 20 mg tablet See Rx Instructions PO .COMPLEX 11/28/19 12/08/19 Rx #18 tab ceftriaxone 2 g IV DAILY 12/08/19 12/08/19 History levothyroxine 112 mcg PO DAILY 12/08/19 12/08/19 History warfarin 1.5 mg PO DAILY 12/08/19 12/08/19 History Patient History Medical History Asthma (Chronic) Chronic back pain Chronic diastolic CHF (congestive heart failure) (Chronic) CKD (chronic kidney disease), stage III (Chronic) COPD exacerbation (Acute) DCIS (ductal carcinoma in situ) (~2012) Deep vein blood clot of right lower extremity History of pulmonary embolism Hx pulmonary embolism Hypertension (Chronic) Hypoxia (Acute) Lung cancer (~2010) Mixed conductive and sensorineural hearing loss of right ear with restricted hearing of left ear RLS (restless legs syndrome) Spasmodic dysphonia Surgical History H/O mastectomy History of back surgery History of lung surgery Hx of appendectomy Hx of hernia repair Hx of hysterectomy Hx of resection of liver Hx of total knee replacement Family History Other Family history non-contributory Social History Preferred Language: Maltese Communication Ability: lethargic, Resolution Agent Required: No Beliefs That Will Affect Care: None Current Living Situation: Half-Way Current Living Situation Comment: [facility] Feels Safe at Home: Yes Smoking Status: Never smoker Second Hand Exposure: No ; Hx Alcohol Use: No Hx Substance Use: No Review of Systems Review of Systems: All systems reviewed & are unremarkable except as noted in HPI & below Physical Exam Constitutional: WD/WN, vitals as above Eyes: PERRL, conjunctivae normal, anicteric sclerae ENMT: external ear and nose normal, oropharynx normal Neck: normal visual inspection Respiratory: normal respiratory effort, lungs clear to auscultation Cardiovascular: RRR, no murmur, no edema Gastrointestinal (Abdomen): normal bowel sounds, soft, nontender, no hepatosplenomegaly Musculoskeletal: Head/Neck/Chest: normocephalic and head atraumatic Skin: no rashes, warm and dry + erythema (rle) Psychiatric: A+Ox3, euthymic affect Results & Data Vital Signs (Past 12 Hours) Vital Signs Temp Pulse Pulse Resp BP Pulse Ox 12/09/19 07:17 37.1 C 110 H 21 144/91 H 99 12/09/19 07:06 108 H 20 97 12/09/19 03:43 37.0 C 103 H 20 138/82 96 12/09/19 00:12 36.4 C L 115 H 20 120/94 96 12/08/19 23:44 128 H 12/08/19 23:36 137 H 27 H 96 Laboratory Results Microbiology 12/08/19 10:28 Blood Aerobic Blood Culture - Preliminary Gram negative bacilli 12/08/19 10:28 Blood Anaerobic Blood Culture - Preliminary Gram negative bacilli 12/08/19 11:01 Urine,Straight Cath Urine Culture - Preliminary Gram negative bacilli 12/08/19 11:16 Blood Aerobic Blood Culture - Preliminary Gram negative bacilli PG Care Time/CCT Total # of Minutes Spent Total Time Spent with Patient: Total time spent is greater than 50% in coordination of care (as documented) at patient's floor/unit and/or counseling patient: Coding Level of Care Code 88444 Inpt Consult Level 4 Diagnoses Cellulitis of right lower extremity L03.115 UTI (urinary tract infection) N39.0 Hematuria presence: without hematuria Urinary tract infection type: site unspecified (1) UTI (urinary tract infection) Hematuria presence: without hematuria Urinary tract infection type: site unspecified Qualified Code(s): N39.0 - Urinary tract infection, site not specified
[2019-12-09] MEDS ORDERED: VANCOMYCIN HCL 1,500 MG in SODIUM CHLORIDE 0.9% 500 ML IV ONE (11:00)
--- NOTE | 2019-12-09 11:25 | Pharmacy Report ---
Pharmacy Abx Dose Short Note - Date of Service December 09, 2019 - Assessment & Plan Assessment * 89 year old F receiving VANCOMYCIN + PRIMAXIN for treatment of RLE cellulitis vs UTI vs PNA * Blood Cx's currently growing GNR, Urine Cx also growing GNR. * Patient w/ h/o ESBL e coli in urine (12/07/19) and h/o pseudomonas aeruginosa bacteremia (06/03/19) * Renal fxn improving SCr 1.72 --> 1.42 (baseline SCr ~1.0), UOP > 0.5mL/kg/hr * Currently afebrile, + tachycardia, no hypotension noted, sats 90's on 4L NC Plan Vancomycin * 2750mg IV x 1 given yesterday @1123 * Random level this AM = 18.2 @0607 * Redose vancomycin today, 1500mg (~11mg/kg due to BMI > 45) x 1 * Will recheck random level w/ AM labs * Goal trough level for pneumonia, sepsis : 15 to 20 mcg/mL, however 10 - 20mcg/mL would be acceptable for SSTI Primaxin * eCrCl 30-59cc/min; increase dose to 500mg IV Q 8 hrs due to bacteremia with potential ESBL organism and given patient BMI Pharmacy will continue to follow and will adjust dose/frequency as necessary. Thank you.
--- NOTE | 2019-12-09 12:09 | Hospitalist Progress Note ---
Date of Service December 09, 2019 Assessment & Plan (1) Sepsis: Continue admit to PCU on telemetry Vital signs every 4 hours Replenish electrolytes and monitor Cefepime switched to imipenem since patient grew ESBL in her urine sensitive to imipenem and continued vancomycin renally dosed. Trough to be between 10 and 15. Blood cultures positive x2 for gram-negative bacilli specificity pending. Patient's mental status is improved and she is able to tolerate heart healthy diet. Advance diet as tolerated to heart healthy low-sodium and p.o. free water restriction to 1200 mils per day DVT prophylaxis ; SCDs and teds. Warfarin continues to be on hold since patient has thrombocytopenia. Her platelet count is now after 1 unit transfusion 44. Continue monitoring platelets Patient CODE STATUS is DNR/DNI (2) Atrial fibrillation: Hold warfarin due to low platelet count and easy bruising with hematoma of the right lower extremity. Given diltiazem 10 mg IV push in the ER. Continue amiodarone drip to control rapid A. fib's. Consult cardiology Started carvedilol home dose 3.125 mg twice daily Continue monitoring. (3) Cellulitis of right lower extremity: Patient has extensive cellulitis of the right lower extremity started from her lord to the mid thigh. X-rays of the right leg pending. Continue imipenem and vancomycin renally dosed Viable cell count is trending down from 31.12-24.19 (4) Fluid overload: Patient is now hypotensive. Strict in and out Daily weight Continue furosemide 40 mg IV daily (5) CHF exacerbation: Patient is in a acute diastolic CHF exacerbation. She has pulmonary congestion Strict in and out Daily weight Low-sodium diet Monitor free p.o. intake to 1200 mils once when patient awake and able to eat. Restarted carvedilol 3.125 mg p.o. twice daily and continue furosemide 40 mg IV daily. (6) CARLITOS (obstructive sleep apnea): Patient may use CPAP at night (7) Obesity (BMI 30.0-34.9): Patient has metabolic syndrome. Recommended to lose weight if possible with proper diet and exercises. (8) Bone marrow disorder: Patient has myelodysplasia. She opted not to have bone marrow biopsy. Continue monitoring platelets. S/p 1 unit of platelets. Monitor daily for bruises, hematemesis, hematuria, melena Keep off of anticoagulation (9) Chronic respiratory failure with hypoxia: Likely due to acute exacerbation of CHF. Pneumonia is not excluded Procalcitonin elevated to 24.85 Continue antibiotics as discussed above. Ipratropium nebs every 8 due to rapid A. fib's Solu-Medrol 60 twice daily and taper down Robitussin for cough Use CPAP and BPAP as needed for high flow Continue montelukast 10 mg p.o. p.m. Continue guaifenesin 200 mg p.o. every 4 hours as needed Continue fluticasone propionate 2 sprays intranasally Continue Advair 1 puff every 12 Continues sodium chloride intranasally 1 spray as needed Continue Spiriva 1 cap inhalation every morning (10) Hypothyroid: TSH normal. Continue 112 MCG's of levothyroxine daily. (11) Thrombocytopenia: As discussed above. Likely due to sepsis and myelodysplastic disorder. Consult oncology Given 1 unit of platelets. Continue monitoring (12) Elevated troponin: First troponin elevated 0.046, likely due to demand ischemia with rapid A. fib's. Patient does not appear to be in acute coronary syndrome. Troponin trended down 0.046-->0.040-->0.020 Started amiodarone drip for A. fib's (13) Acute kidney injury: Prior patient baseline was within normal limits with creatinine 1.04 and GFR of 47.9. Slowly improving. Creatinine improved from 1.72-->1.42 Likely due to dehydration and sepsis. Avoid nephrotoxic agents Continue monitoring Subjective Patient is seen and examined at the bedside. No acute event overnight. Patient is afebrile and slowly improving. P.o. intake is better. Patient is able to swallow swallow without any issues. Patient is alert oriented and speaks in person. 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 Patient denies fever, chills, chest pain, shortness of breath, abdominal pain, frequency, urgency. Review of Systems Review of Systems: All systems reviewed & are unremarkable except as noted in HPI & below Physical Exam Constitutional: WD/WN, vitals as above well developed, + ill appearing and + morbidly obese Eyes: PERRL, conjunctivae normal, anicteric sclerae ENMT: external ear and nose normal, oropharynx normal Neck: trachea midline, no thyromegaly Respiratory: no respiratory distress, no labored breathing and does not use accessory muscles Auscultation: + bronchovesicular breath sounds; no wheezes Cardiovascular: Rate/Rhythm: + irregularly irregular Heart Sounds: normal S1 and normal S2 Palpation: + palpable S3 Vessels: + JVD and dorsalis pedis pulses present Extremities: + pedal edema Gastrointestinal (Abdomen): normal bowel sounds, soft, nontender, no hepatosplenomegaly Musculoskeletal: no cyanosis or clubbing, extremities motor strength 5/5 Neurologic: PERRL, EOMI, accommodation nl, no face palsy, no dysarthria Psychiatric: Insight: + limited insight Lymphatic: no cervical or axillary lymphadenopathy Results & Data Vital Signs (Past 12 Hours) Vital Signs Temp Pulse Pulse Resp BP Pulse Ox 12/09/19 11:23 36.4 C L 112 H 20 147/82 H 93 12/09/19 08:00 128 H 12/09/19 07:17 37.1 C 110 H 21 144/91 H 99 12/09/19 07:06 108 H 20 97 12/09/19 03:43 37.0 C 103 H 20 138/82 96 12/09/19 00:12 36.4 C L 115 H 20 120/94 96 PG Care Time/CCT Total # of Minutes Spent Total Time Spent with Patient: Total time spent is greater than 50% in coordination of care (as documented) at patient's floor/unit and/or counseling patient: Coding Level of Care Code 47589 Subseq Hosp Care Lvl 3 Diagnoses Sepsis A41.9 Atrial fibrillation I48.91 Cellulitis of right lower extremity L03.115 Fluid overload E87.70 CHF exacerbation I50.9 CARLITOS (obstructive sleep apnea) G47.33 Obesity (BMI 30.0-34.9) E66.9 Bone marrow disorder D75.9 Chronic respiratory failure with hypoxia J96.11 Hypothyroid E03.9 Thrombocytopenia D69.6 Elevated troponin R79.89 Acute kidney injury N17.9
[2019-12-09] MEDS: FUROSEMIDE 40 MG in SYRINGE 0 ML IV SCH ×2 (12:33→14:15)
[2019-12-09] MEDS ORDERED: dilTIAZem HCl 5 MG/ML 5 ML VIAL IV STA (13:44)
[2019-12-09] MEDS ORDERED: DILTIAZEM HCL IV ONE (14:00)
[2019-12-09] MEDS: ALBUMIN 25% 50 ML IV SCH (14:07)
[2019-12-09] MEDS: carvediloL 3.125 MG TAB PO SCH ×2 (14:07→21:28)
--- NOTE | 2019-12-09 14:11 | Cardiology Consultation ---
Date of Consultation December 09, 2019 Assessment & Plan (1) Atrial fibrillation: It is unknown whether she has episodes of atrial fibrillation at other times, but she presented in atrial fibrillation and rapid ventricular rates. This is likely related to her acute illness. I suspect that as her illness improves her atrial fibrillation will either be easier to control or she will convert back to sinus rhythm. Her hemodynamics seem better today and I think there is an opportunity to att empt better rate control with diltiazem. Amiodarone was initially employed due to element of hypotension, but there have been some concerns regarding amiodarone and associated thrombocytopenia. I think diltiazem will be a more effective agent in the short-term. I do not think she requires amiodarone. I think overall will attempt to perform rate control rather than rhythm control. She is certainly not a good candidate for most other antiarrhythmics based on her renal dysfunction and age. She had been on systemic anticoagulant previously with warfarin. However, this is currently being held due to her thrombocytopenia. This should be resumed at the earliest interval. (2) Acute on chronic diastolic CHF (congestive heart failure): She appears to have an element of hypervolemia. She has received several doses of diuretic without a net loss of fluid. Lung exam is relatively benign, but is very difficult to get a good examination given her obesity and poor mobility. She is scheduled to have more diuretic administered this afternoon and I think we will need to monitor her renal function and electrolytes closely. History of Present Illness Reason for Consultation: Atrial fibrillation Requesting Physician: Monica Attending Physician: Elenita Anderson MD History of Present Illness The patient is an 89-year-old woman with a history of diastolic heart failure and paroxysmal atrial fibrillation who was recently minute with breathing difficulty. The patient states that over for several days she has been experiencing symptoms of progressively worsening dyspnea. This progressed to the point where she sought medical attention. She had reported some subjective fevers and chills. She had a nonproductive cough. She denied indoor symptoms of chest discomfort. She did not endorse symptoms of orthopnea although she generally sleeps in a recliner. She generally has some lower extremity edema. She cannot recall if this was better or worse recently. She is a resident at a nursing facility. She does not perform much ambulation. She freely admits that her day generally involves "watching TV". She is ambula tory with a walker at times. She is generally not aware of any palpitations. She has not been aware of any significant palpitations during this admission. She now reports symptoms of dizziness or lightheadedness. No episodes of syncope. Allergies Allergy/AdvReac Type Severity Reaction Status Date / Time enoxaparin Allergy Intermediate RASH, Verified 12/08/19 10:57 PRURITUS Home Medications Home Medications Medication Instructions Recorded Confirmed Type Prilosec OTC 20 mg PO QAM 09/07/18 12/08/19 History Spiriva with HandiHaler 1 cap INHALATION QAM 09/07/18 12/08/19 History allopurinol 100 mg PO QAM 09/07/18 12/08/19 History duloxetine 30 mg PO QPM 09/07/18 12/08/19 History gabapentin 600 mg PO HS 09/07/18 12/08/19 History montelukast [Singulair] 10 mg PO PM 09/07/18 12/08/19 History Restasis MultiDose 1 drp OPHTHALMIC (EYE) BID 11/06/18 12/08/19 History acetaminophen 325 - 650 mg PO Q6H PRN MDD 3G 11/06/18 12/08/19 History albuterol sulfate [Ventolin HFA] 2 puff INHALATION Q4H PRN 11/06/18 12/08/19 History azelastine 2 spray INTRANASAL QAM 11/06/18 12/08/19 History fluticasone propionate [Flonase 2 spray INTRANASAL DAILY 11/06/18 12/08/19 History Allergy Relief] multivitamin 1 tab PO QAM 11/06/18 12/08/19 History acetaminophen [Tylenol Extra 1,000 mg PO HS 02/02/19 12/08/19 History Strength] diclofenac sodium [Voltaren] 2 g TOPICAL BID 02/02/19 12/08/19 History sodium chloride [Dukes Nasal] 1 spray INTRANASAL UD PRN 02/02/19 12/08/19 History gabapentin 200 mg PO BID 07/14/19 12/08/19 History polyethylene glycol 3350 [Miralax] 17 g PO PM 07/14/19 12/08/19 History Fleet Enema 118 ml MT DAILY PRN 07/30/19 12/08/19 History bisacodyl 10 mg MT DAILY PRN 07/30/19 12/08/19 History fluticasone propion-salmeterol 1 puff INHALATION Q12H 07/30/19 12/08/19 History [Advair Diskus] albuterol sulfate 2.5 mg INH QID #90 ml 08/16/19 12/08/19 Rx codeine-guaifenesin 10 ml PO Q6H PRN #118 ml 08/16/19 12/08/19 Rx fentanyl 1 patch TD Q72H #5 ea 08/16/19 12/08/19 Rx oxycodone 5 mg PO DAILY PRN #30 tab 08/16/19 12/08/19 Rx oxycodone 10 mg PO DAILY PRN #30 tab 08/16/19 12/08/19 Rx carvedilol 3.125 mg tablet 3.125 mg PO BID tab 09/09/19 12/08/19 History budesonide 0.5 mg/2 mL suspension 2 ml INH BID 09/11/19 12/08/19 History for nebulization furosemide 40 mg tablet 40 mg PO DAILY #30 tab 09/11/19 12/08/19 Rx ropinirole 1 mg tablet 1 mg PO QID #90 tab 09/11/19 12/08/19 Rx guaifenesin 100 mg/5 mL oral liquid 200 mg PO Q4H PRN 11/28/19 12/08/19 History prednisone 20 mg tablet See Rx Instructions PO .COMPLEX 11/28/19 12/08/19 Rx #18 tab ceftriaxone 2 g IV DAILY 12/08/19 12/08/19 History levothyroxine 112 mcg PO DAILY 12/08/19 12/08/19 History warfarin 1.5 mg PO DAILY 12/08/19 12/08/19 History Patient History Medical History Asthma (Chronic) Chronic back pain Chronic diastolic CHF (congestive heart failure) (Chronic) CKD (chronic kidney disease), stage III (Chronic) COPD exacerbation (Acute) DCIS (ductal carcinoma in situ) (~2012) Deep vein blood clot of right lower extremity History of pulmonary embolism Hx pulmonary embolism Hypertension (Chronic) Hypoxia (Acute) Lung cancer (~2010) Mixed conductive and sensorineural hearing loss of right ear with restricted hearing of left ear RLS (restless legs syndrome) Spasmodic dysphonia Surgical History H/O mastectomy History of back surgery History of lung surgery Hx of appendectomy Hx of hernia repair Hx of hysterectomy Hx of resection of liver Hx of total knee replacement Family History Other Family history non-contributory Social History Preferred Language: Slovak Communication Ability: Effective Shot Coat Tender Required: No Beliefs That Will Affect Care: None Current Living Situation: Group Home Current Living Situation Comment: [facility] Feels Safe at Home: Yes Smoking Status: Never smoker Second Hand Exposure: No ; Hx Alcohol Use: No Hx Substance Use: No Review of Systems Review of Systems: All systems reviewed & are unremarkable except as noted in HPI & below She denied any pain in the lower extremities. She does have some chronic back pain which is worse due to positioning in bed. Physical Exam Physical Exam: She is alert and oriented x3. Mood affect appear normal. She answered all questions appropriately. Obese. HEENT: Sclerae are anicteric. Pupils are equal and reactive to light and accommodation. Extraocular movements were intact. Neuro: Cranial nerves intact Neck: Very redundant. Obese. Lungs: Difficult to assess the bases, the apices are clear. She does have some expiratory wheezing. Cardiac: The rhythm was irregular. S1 and S2 were normal. There are no murmurs on examination. The PMI was not markedly displaced on palpation. Abdomen: Obese Extremities: She has moderate edema bilaterally. She has erythema worse on the right than the left. Skin: Lower extremity erythema. Scabs in the left clavicular area Results & Data Vital Signs (Past 12 Hours) Vital Signs Temp Pulse Pulse Resp BP Pulse Ox 12/09/19 11:23 36.4 C L 112 H 20 147/82 H 93 12/09/19 08:00 128 H 12/09/19 07:17 37.1 C 110 H 21 144/91 H 99 12/09/19 07:06 108 H 20 97 12/09/19 03:43 37.0 C 103 H 20 138/82 96 Laboratory Results Abnormal Lab Results 12/08/19 12/08/19 12/08/19 12:48 15:28 15:28 WBC RBC Hgb Hct MCV MCH MCHC RDW Std Deviation RDW Coeff of Marta Plt Count Absolute Nucleated RBC Nucleated RBC % (auto) Neutrophils % (Manual) Lymphocytes % (Manual) Monocytes % (Manual) Myelocytes % (Man) Neutrophils # (Manual) Total Absolute Neuts Lymphocytes # (Manual) Total Abs Lymphocytes Monocytes # (Manual) Myelocytes # (Manual) Hypogranular Neuts Platelet Estimate Anisocytosis Target Cells Sodium Potassium Chloride Carbon Dioxide Anion Gap BUN Creatinine Est Cr Clr Drug Dosing Est GFR ( Amer) Est GFR (Non-Af Amer) BUN/Creatinine Ratio Glucose Estimat Average Glucose Hemoglobin A1c Lactate 1.4 Calcium Total Bilirubin AST ALT Alkaline Phosphatase Troponin I 0.040 Total Protein Albumin Globulin Albumin/Globulin Ratio Triglycerides Cholesterol LDL Cholesterol, Calc VLDL Cholesterol, Calc HDL Cholesterol Cholesterol/HDL Ratio Nasal Screen MRSA (PCR) Random Vancomycin Blood Type A Positive Antibody Screen NEGATIVE 12/08/19 12/08/19 12/09/19 20:57 Unknown 06:07 WBC RBC Hgb Hct MCV MCH MCHC RDW Std Deviation RDW Coeff of Marta Plt Count Absolute Nucleated RBC Nucleated RBC % (auto) Neutrophils % (Manual) Lymphocytes % (Manual) Monocytes % (Manual) Myelocytes % (Man) Neutrophils # (Manual) Total Absolute Neuts Lymphocytes # (Manual) Total Abs Lymphocytes Monocytes # (Manual) Myelocytes # (Manual) Hypogranular Neuts Platelet Estimate Anisocytosis Target Cells Sodium Potassium Chloride Carbon Dioxide Anion Gap BUN Creatinine Est Cr Clr Drug Dosing Est GFR ( Amer) Est GFR (Non-Af Amer) BUN/Creatinine Ratio Glucose Estimat Average Glucose Hemoglobin A1c Lactate Calcium Total Bilirubin AST ALT Alkaline Phosphatase Troponin I 0.020 Total Protein Albumin Globulin Albumin/Globulin Ratio Triglycerides Cholesterol LDL Cholesterol, Calc VLDL Cholesterol, Calc HDL Cholesterol Cholesterol/HDL Ratio Nasal Screen MRSA (PCR) Positive A Random Vancomycin 18.2 Blood Type Antibody Screen 12/09/19 12/09/19 12/09/19 06:07 06:07 06:07 WBC 24.19 H RBC 2.57 L Hgb 8.8 L Hct 26.0 L MCV 101.2 H MCH 34.2 H MCHC 33.8 RDW Std Deviation 74.5 H RDW Coeff of Marta 20.1 H Plt Count 44 L D Absolute Nucleated RBC 0.02 H Nucleated RBC % (auto) 0.1 Neutrophils % (Manual) 88.5 Lymphocytes % (Manual) 4.4 Monocytes % (Manual) 6.2 Myelocytes % (Man) 0.9 Neutrophils # (Manual) 21.41 H Total Absolute Neuts 21.41 H Lymphocytes # (Manual) 1.06 L Total Abs Lymphocytes 1.06 L Monocytes # (Manual) 1.50 H Myelocytes # (Manual) 0.22 H Hypogranular Neuts 2+ Platelet Estimate Decreased L Anisocytosis Present Target Cells 1+ Sodium 137 Potassium 3.8 D Chloride 99 Carbon Dioxide 31 Anion Gap 6.0 BUN 51 H Creatinine 1.42 H D Est Cr Clr Drug Dosing 39.0 Est GFR ( Amer) 38.1 Est GFR (Non-Af Amer) 32.9 BUN/Creatinine Ratio 36.1 H Glucose 214 H Estimat Average Glucose 123 Hemoglobin A1c 5.9 H Lactate Calcium 10.0 Total Bilirubin 0.5 D AST 20 ALT 31 Alkaline Phosphatase 127 H Troponin I Total Protein 6.2 L Albumin 2.3 L Globulin 3.9 Albumin/Globulin Ratio 0.6 L Triglycerides 220 H Cholesterol 118 LDL Cholesterol, Calc 63 VLDL Cholesterol, Calc 44 HDL Cholesterol 11 Cholesterol/HDL Ratio 11 Nasal Screen MRSA (PCR) Random Vancomycin Blood Type Antibody Screen Diagnostic Findings Echocardiogram performed in 2018 revealed preserved LV systolic function with stage I diastolic function and mild LVH. No significant valvular abnormalities. ECG Additional Comments: EKG reveals atrial fibrillation with rapid ventricular response and right bundle branch block PG Care Time/CCT Total # of Minutes Spent Total Time Spent with Patient: Total time spent is greater than 50% in coordination of care (as documented) at patient's floor/unit and/or counseling patient: Coding Level of Care Code 42595 Initial Inpt Care Lvl 3 Diagnoses Atrial fibrillation I48.91 Acute on chronic diastolic CHF (congestive heart failure) I50.33
[2019-12-09] MEDS: dilTIAZem HCL 125 MG in DEXTROSE 5% 100 ML IV SCH (14:25)
[2019-12-09] MEDS ORDERED: IMIPENEM/CILASTATIN SODIUM 500 MG in DEXTROSE 5% 100 ML IV SCH (16:00)
[2019-12-09] MEDS ORDERED: GLUCOSE 40% GEL 15 GM TUBE PO PRN (16:46)
[2019-12-09] MEDS ORDERED: CARBOHYDRATES FOR HYPOGLYCEMIA PO PRN (16:46)
[2019-12-09] MEDS ORDERED: GLUCAGON FOR INJ 1 MG VIAL SQ PRN (16:46)
[2019-12-09] MEDS ORDERED: GLUCOSE 10 TABS/TUBE PO PRN (16:46)
[2019-12-09] MEDS ORDERED: DEXTROSE 50% 50 ML SYRINGE IV PRN (16:46)
[2019-12-09] MEDS ORDERED: PHARMACY GLYCEMIC MGMT CONSULT PRN (17:09)
[2019-12-09] MEDS ORDERED: INSULIN GLARGINE SOLOSTAR 100 UNITS/ML 3 ML PEN SC ONE (17:15)
[2019-12-09] MEDS: IMIPENEM/CILASTATIN SODIUM 500 MG in DEXTROSE 5% 100 ML IV SCH ×2 (18:08→23:47)
[2019-12-09] MEDS: INSULIN ASPART 100 UNITS/ML 3 ML PEN SC SCH ×3 (18:10→23:44)
--- NOTE | 2019-12-09 19:54 | Electrocardiogram Report ---
Test Reason : Blood Pressure : / mmHG Vent. Rate : 119 BPM Atrial Rate : 052 BPM P-R Int : 000 ms QRS Dur : 134 ms QT Int : 328 ms P-R-T Axes : 000 081 -40 degrees QTc Int : 461 ms Atrial fibrillation with rapid ventricular response Right bundle branch block Abnormal ECG Confirmed by Syed Marquez ([id number] on 12/09/2019 7:53:57 PM Referred By: [facility] Confirmed By:Robert Marquez
[2019-12-09] MEDS: POLYETHYLENE (MIRALAX) 17 GM PACK PO PRN (21:27)
[2019-12-09] MEDS: DULOXETINE HCL 30 MG CAP PO SCH (21:29)
[2019-12-09] MEDS: MONTELUKAST SODIUM 10 MG TABLET PO SCH (21:30)
[2019-12-10] MEDS: dilTIAZem HCL 125 MG in DEXTROSE 5% 100 ML IV SCH ×2 (00:40→13:15)
[2019-12-10] MEDS: INSULIN ASPART 100 UNITS/ML 3 ML PEN SC SCH ×5 (04:07→21:04)
[2019-12-10] MEDS: methylPREDNISolone 60 MG in SYRINGE 0 ML IV SCH ×2 (05:31→16:53)
[2019-12-10] MEDS: LEVOTHYROXINE SODIUM 112 MCG TABLET PO SCH (05:55)
[2019-12-10 06:17] LABS: Mean Corpuscular Hgb Conc 34.5 g/dL (32-36); Nucleated RBC # (auto) 0.03 K/uL (0-0); Nucleated RBC % (auto) 0.2 %
[2019-12-10 06:22] LABS: Hematocrit (blood only) 25.8 % (37-47); Hemoglobin 8.9 g/dL (12.0-16.0); Mean Corpuscular Hemoglobin 34.6 pg (25-34); Mean Corpuscular Volume 100.4 fL (80-100); RDW Coefficient of Variation 20.2 % (11.5-14.5); RDW Standard Deviation 74.7 fL (36.4-46.3); Red Blood Count 2.57 M/uL (4.2-5.4); White Blood Count 19.21 K/uL (4.8-10.8)
[2019-12-10 06:42] LABS: Platelet Count 65 K/uL (130-400)
[2019-12-10 06:44] LABS: Anisocytosis Present; Basophils # (auto) 0.01 K/uL (0-0.2); Basophils % (auto) 0.1 %; Dohle Bodies 1+; Hypogranular Neutrophils 2+; Immature Granulocytes # (auto) 0.36 K/uL (0.00-0.02); Immature Granulocytes % (auto) 1.9 %; Lymphocytes # (auto) 1.46 K/uL (1.2-3.4); Lymphocytes % (auto) 7.6 %; Macrocytosis Present; Monocytes # (auto) 1.96 K/uL (0.11-0.59); Monocytes % (auto) 10.2 %; Neutrophils # (auto) 15.42 K/uL (1.4-6.5); Neutrophils % (auto) 80.2 %; Platelet Estimate Decreased (Normal); Target Cells 1+
[2019-12-10 06:55] LABS: Albumin Level 2.2 gm/dl (3.4-5.0); BUN Creatinine Ratio 41.2 (10-20); Calcium 10.1 mg/dl (8.5-10.1); Creatinine Clr Calc Pharmacy 46.6 ml/min; Est GFR (African American) 48.2; Est GFR (Non-African American) 41.6; Potassium 3.6 mmol/L (3.5-5.1)
[2019-12-10 06:58] LABS: Albumin Globulin Ratio 0.5 (0.9-2); Bilirubin,Total 0.6 mg/dl (0.2-1); Globulin 4.2 gm/dl (2.5-4.0); Total Protein 6.4 gm/dl (6.4-8.2)
[2019-12-10] MEDS: BUDESONIDE 0.5 MG/2 ML VIAL (PULMICORT) INH SCH ×2 (06:58→19:10)
[2019-12-10] MEDS: IPRATROPIUM BROMIDE NEB SOLN 0.02% 2.5 ML VIAL NEB SCH ×3 (06:58→22:08)
[2019-12-10] MEDS: IMIPENEM/CILASTATIN SODIUM 500 MG in DEXTROSE 5% 100 ML IV SCH ×3 (07:51→23:54)
[2019-12-10] MEDS: CHECK FENTANYL PATCH PLACEMENT SCH ×3 (07:51→23:54)
[2019-12-10] MEDS: FUROSEMIDE 40 MG in SYRINGE 0 ML IV SCH (07:54)
[2019-12-10] MEDS: ROPINIROLE HCL 1 MG TABLET PO SCH ×4 (07:55→20:59)
[2019-12-10] MEDS: MULTIVITAMIN TAB PO SCH (07:55)
[2019-12-10] MEDS: carvediloL 3.125 MG TAB PO SCH (07:55)
[2019-12-10] MEDS: allopurinoL 100 MG TAB PO SCH (07:55)
[2019-12-10] MEDS: UMECLIDINIUM BROMIDE 62.5MCG/BLISTER 7 PUFFS/INHALER INH SCH (07:56)
[2019-12-10] MEDS: DICLOFENAC SOD 1% GEL 100 GM TUBE EXT SCH ×2 (07:57→20:59)
[2019-12-10] MEDS: FLUTICASONE PROPIONATE NA SPR 16 GM BTL NAE SCH (07:57)
[2019-12-10] MEDS: FLUTICASONE/VILANTEROL 100/25MCG 14 PUFFS/INHALER INH SCH (07:57)
--- NOTE | 2019-12-10 08:00 | Hospitalist Progress Note ---
Date of Service December 10, 2019 Assessment & Plan (1) Sepsis: Continue admit to PCU on telemetry Vital signs every 4 hours Replenish electrolytes and monitor Cefepime switched to imipenem since patient grew ESBL in her urine sensitive to imipenem and continued vancomycin renally dosed. Trough to be between 10 and 15. Blood cultures positive x2 also positive for E. coli ESBL, sensitivity to follow. Patient's mental status is improved and she is able to tolerate heart healthy diet. Continue heart healthy low-sodium diet and p.o. free water restriction to 1200 mils per day DVT prophylaxis ; SCDs and teds. Warfarin continues to be on hold since patient has thrombocytopenia. Her platelet count is improved to 65. Continue monitoring platelets Patient CODE STATUS is DNR/DNI (2) Atrial fibrillation: Hold warfarin due to low platelet count and easy bruising with hematoma of the right lower extremity. Given diltiazem 10 mg IV push in the ER. Continue amiodarone drip to control rapid A. fib's. Appreciate cardiology recommendations. Continue carvedilol 6.25 twice daily for better rate control and blood pressure. Continue monitoring. (3) Cellulitis of right lower extremity: Patient has extensive cellulitis of the right lower extremity started from her lord to the mid thigh. X-rays of the right leg pending Continue imipenem and vancomycin renally dosed WBC is trending down from 31.12-24.19-->19.21 (4) Fluid overload: Strict in and out Daily weight Continue furosemide 40 mg IV daily (5) CHF exacerbation: Patient is in a acute diastolic CHF exacerbation. She has pulmonary congestion Strict in and out Daily weight Low-sodium diet Monitor free p.o. intake to 1200 mils once when patient awake and able to eat. Increase carvedilol to 6.25 mg twice daily from carvedilol 3.125 mg p.o. twice daily and continue furosemide 40 mg IV daily. (6) CARLITOS (obstructive sleep apnea): Patient may use CPAP at night (7) Obesity (BMI 30.0-34.9): Patient has metabolic syndrome. Recommended to lose weight if possible with proper diet and exercises. (8) Bone marrow disorder: Patient has myelodysplasia. She opted not to have bone marrow biopsy. Continue monitoring platelets. S/p 1 unit of platelets. Monitor daily for bruises, hematemesis, hematuria, melena Keep off of anticoagulation (9) Chronic respiratory failure with hypoxia: Likely due to acute exacerbation of CHF. Pneumonia is not excluded Procalcitonin elevated to 24.85 Continue antibiotics as discussed above. Ipratropium nebs every 8 due to rapid A. fib's Solu-Medrol 60 twice daily and taper down Robitussin for cough Use CPAP and BPAP as needed for high flow Continue montelukast 10 mg p.o. p.m. Continue guaifenesin 200 mg p.o. every 4 hours as needed Continue fluticasone propionate 2 sprays intranasally Continue Advair 1 puff every 12 Continues sodium chloride intranasally 1 spray as needed Continue Spiriva 1 cap inhalation every morning (10) Hypothyroid: TSH normal. Continue 112 MCG's of levothyroxine daily. (11) Thrombocytopenia: As discussed above. Likely due to sepsis and myelodysplastic disorder. Consult oncology Given 1 unit of platelets. Continue monitoring (12) Elevated troponin: First troponin elevated 0.046, likely due to demand ischemia with rapid A. fib's. Patient does not appear to be in acute coronary syndrome. Troponin trended down 0.046-->0.040-->0.020 Continue amiodarone drip for A. fib's Continue carvedilol (13) Acute kidney injury: Resolved . Prior patient baseline was within normal limits with creatinine 1.04 and GFR of 47.9. Slowly improving. Creatinine improved from 1.72-->1.42-->1.17 Likely due to dehydration and sepsis. Avoid nephrotoxic agents Continue monitoring Subjective Patient is seen and examined at the bedside. No acute event overnight. Patient is afebrile. Slowly improving. Sitting up in the bed. P.o. intake is better. Patient is able to swallow without any issues. Altered mental status resolved. Patient denies fever, chills, chest pain, shortness of breath, abdominal pain, frequency, urgency. Review of Systems Review of Systems: All systems reviewed & are unremarkable except as noted in HPI & below Physical Exam Constitutional: WD/WN, vitals as above well developed, + ill appearing and + morbidly obese Eyes: PERRL, conjunctivae normal, anicteric sclerae ENMT: external ear and nose normal, oropharynx normal Neck: trachea midline, no thyromegaly Respiratory: no respiratory distress, no labored breathing and does not use accessory muscles Auscultation: + bronchovesicular breath sounds; no wheezes Cardiovascular: Rate/Rhythm: + irregularly irregular Heart Sounds: normal S1 and normal S2 Palpation: + palpable S3 Vessels: + JVD and dorsalis pedis pulses present Extremities: + pedal edema Gastrointestinal (Abdomen): normal bowel sounds, soft, nontender, no hepatosplenomegaly Musculoskeletal: no cyanosis or clubbing, extremities motor strength 5/5 Neurologic: PERRL, EOMI, accommodation nl, no face palsy, no dysarthria Psychiatric: Insight: + limited insight Lymphatic: no cervical or axillary lymphadenopathy Results & Data Vital Signs (Past 12 Hours) Vital Signs Temp Pulse Pulse Resp BP Pulse Ox 12/10/19 06:58 91 H 23 95 12/10/19 03:37 37.0 C 90 22 140/82 94 12/09/19 23:35 36.7 C 98 H 20 143/104 H 92 12/09/19 23:21 88 20 91 12/09/19 23:02 91 PG Care Time/CCT Total # of Minutes Spent Total Time Spent with Patient: Total time spent is greater than 50% in coordination of care (as documented) at patient's floor/unit and/or counseling patient: Coding Level of Care Code 29921 Subseq Hosp Care Lvl 3 Diagnoses Sepsis A41.9 Atrial fibrillation I48.91 Cellulitis of right lower extremity L03.115 Fluid overload E87.70 CHF exacerbation I50.9 CARLITOS (obstructive sleep apnea) G47.33 Obesity (BMI 30.0-34.9) E66.9 Bone marrow disorder D75.9 Chronic respiratory failure with hypoxia J96.11 Hypothyroid E03.9 Thrombocytopenia D69.6 Elevated troponin R79.89 Acute kidney injury N17.9
--- NOTE | 2019-12-10 08:50 | Consultation Report ---
DATE OF CONSULTATION: 12/10/2019 REASON FOR CONSULTATION: Thrombocytopenia, chronic anemia. HISTORY OF PRESENT ILLNESS: Anel Mendez is a pleasant 89-year-old female patient well known to [facility], currently under my care with suspected underlying myelodysplasia. She was admitted recently to [facility] with urosepsis. The patient unfortunately has several comorbid issues and because of her large body habitus it will be difficult bone marrow biopsy and aspiration. Thus myelodysplasia has never been formally established as diagnosis. Apparently, the patient had been feeling ill at [facility] necessitating visit to the Emergency Room. She had originally presented with altered mental status, generalized weakness, shortness of breath, swelling and redness of the right lower extremity up to her thigh and cloudy urine. She was found to be in atrial fibrillation with rapid ventricular response. She was subsequently worked up and blood and urine cultures both grew out E. coli. She is receiving antibiotics at the present time. Her mentation still is not back to baseline. Again, I am very familiar with Ms. Mendez and her hematologic issues. Specifically, fluctuations in her platelet count have been noted over the past month or so. She received transfusion of single donor platelet pheresis yesterday and clearly has responded. This fact makes the possibility of immune thrombocytopenia less likely. She also suffers from chronic anemia. Again because of her comorbid issues, I have decided to approach her from a symptomatic and a supportive standpoint. PAST MEDICAL HISTORY: Significant for atrial fibrillation, morbid obesity, chronic respiratory failure with hypoxia, chronic anemia, thrombocytopenia, acute renal injury. She suffers from CHF, COPD, hypertension. MEDICATIONS: Prior to admission include warfarin 1.5 mg p.o. daily, levothyroxine 112 mcg p.o. daily, prednisone 20 mg p.o. daily, guaifenesin 200 mg p.o. q. 4 hours p.r.n., propranolol 1 mg p.o. q.i.d., furosemide 40 mg p.o. daily, budesonide suspension 2 mL inhaled b.i.d., carvedilol 3.125 mg p.o. b.i.d., oxycodone 10 mg p.o. daily p.r.n., fentanyl patch dose unknown q. 72 hours, codeine/guaifenesin 10 mL p.o. q. 6 hours p.r.n., albuterol sulfate 2.5 mg inhaled q.i.d., fluticasone 1 puff inhaled q. 12 hours, bisacodyl 10 mg p.o. p.r.n., Fleet enema p.r.n., MiraLax 17 grams p.o. q.p.m., gabapentin 200 mg p.o. b.i.d., diclofenac sodium topical gel applied to affected area b.i.d., acetaminophen 1000 mg p.o. at bedtime, multivitamin 1 tablet p.o. q.a.m., Flonase 2 sprays intranasally daily, azelastine 2 sprays intranasally q.a.m., albuterol inhaler 2 puffs q. 4 hours p.r.n., Restasis multi-dose 1 drop in each eye b.i.d., Singulair 10 mg p.o. daily, gabapentin 600 mg p.o. at bedtime, duloxetine 30 mg p.o. q.p.m., allopurinol 100 mg p.o. daily, Spiriva 1 capsule inhaled q. morning. ALLERGIES: LOVENOX. SOCIAL HISTORY: The patient resides at [facility]. She is a nonsmoker, nondrinker. FAMILY HISTORY: Noncontributory. REVIEW OF SYSTEMS: Unobtainable because of patient's poor mentation. PHYSICAL EXAMINATION: GENERAL: She is a morbidly obese 89-year-old female. She is awake and alert, somewhat disoriented this morning. VITAL SIGNS: Temperature 37, pulse 91, blood pressure 140/82, respiratory rate 23. SKIN: Without rash or lesion. HEENT: Head is atraumatic, normocephalic. Nares patent without rhinorrhea or discharge. Throat is clear. Tongue midline, mucous membranes dry. NECK: Bull neck. LYMPH: No obvious JVD. HEART: Irregularly irregular. LUNGS: Faint expiratory wheezes heard anteriorly. ABDOMEN: Obese, soft, nontender, nondistended. EXTREMITIES: No clubbing, cyanosis, or edema. Strength testing not performed. NEUROLOGIC: She is awake and alert. LABORATORY DATA: WBC count 19,210, hemoglobin 8.9, platelet count 65,000, ANC 15,420. Sodium 137, potassium 3.6, chloride 100, carbon dioxide 31, creatinine 1.17, BUN 48. Albumin 2.2. RADIOGRAPHIC DATA: Chest x-ray reveals cardiomegaly with a pulmonary vascular congestion suggestive trace right pleural effusion. IMPRESSION: 1. Thrombocytopenia. 2. Macrocytic anemia. 3. Urosepsis. 4. Atrial fibrillation with rapid ventricular response. 5. History of chronic obstructive pulmonary disease. PLAN: I have been asked to visit with Anel at bedside this morning. She is very complex, morbidly obese 89-year-[facility] who was admitted basically with rapid decline manifested by generalized weakness, confusion, agitation and subsequently diagnosed with Escherichia coli bacteremia. Her platelet count has been fluctuant over the past couple of weeks. I suspect in Anel's case, myelosuppression superimposed with myelodysplasia. Platelets have fallen during the current infection. She received transfusion with a decent response which is uncharacteristic for patients with immune thrombocytopenia. Thus, we would continue to treat her underlying condition and would anticipate return to baseline. The patient is not tremendously mobile and thus her hemoglobin is generally around 9-10 grams per deciliter which is satisfactory. Obviously with her comorbid issues would be careful with transfusion.. Perhaps erythropoietin may be helpful during her stay 40,000 units x1.. Again, we will plan to reconvene with Anel as outpatient. I took note of her mildly elevated coagulation profile prior to admission, which may suggest she also suffers from an underlying disseminated intravascular coagulation. Again, treating the underlying condition should stabilize her coag panel. I agree with current medical management. We will continue to follow her periodically during her stay. Platelets appear to be on the upswing and hopefully will continue to do so as the patient improves. Thank you very much for allowing me to participate in her care. SUSY
[2019-12-10] MEDS ORDERED: OXYCODONE HCL IR 5 MG TAB (IMMEDIATE RELEASE) PO PRN (09:26)
[2019-12-10] MEDS ORDERED: VANCOMYCIN HCL 1,500 MG in SODIUM CHLORIDE 0.9% 500 ML IV ONE (11:00)
--- NOTE | 2019-12-10 11:04 | Pharmacy Report ---
Pharmacy Glycemic Short Note 2 - Date of Service December 10, 2019 - Glycemic Short BSG Results (Last 24 hours): 12/09/19 12/09/19 12/09/19 16:08 18:05 20:16 Glucose POC Glucose 249 H 263 H 223 H 12/09/19 12/10/19 12/10/19 23:42 03:47 05:54 Glucose 162 H POC Glucose 158 H 153 H 12/10/19 07:08 Glucose POC Glucose 180 H OUTPATIENT ANTIDIABETIC REGIMEN: * n/a; no prior dx of DM * A1c = 5.9% 12/09/19 ASSESSMENT: * Patient admitted for sepsis secondary to UTI, pneumonia and cellulitis, as well as ADHF. BLCXs and Urine Cx growing ESBL ecoli * Patient is receiving high dose IV steroid for resp failure * Steroids and infection leading to stress inducted hyperglycemia with sustained BSGs in 200s * Basal / Bolus SQ regimen initiated yesterday based upon weight and moderate /severe stress level. Will continue a similar regimen today, however will scale the basal insulin dose going forward given potential for steroid taper in the future PLAN FOR INPATIENT GLYCEMIC CONTROL: * Basal insulin * Lantus 15 units SQ x 1 with lunch then BID per the following scale * 0 units if BSG less than 110 * 10 units if BSG 110-140 * 15 units if BSG 141-180 * 20 units if BSG above 180 * Bolus insulin * NovoLog per scale ACHS and at 0200 * Goal Range: Low 110 mg/dL - High 140 mg/dL * Correction Factor: 15 mg/dL/unit * Nutritional / Prandial insulin per carb ratio of 1 unit per 5 grams CHO consumed PLAN FOR DISCHARGE: * given A1c of 5.9% it is unlikely this patient will require medication for glycemic control on discharge - observed hyperglycemia is likely secondary to current stressors
--- NOTE | 2019-12-10 11:11 | Pharmacy Report ---
Pharmacy Abx Dose Short Note - Date of Service December 10, 2019 - Assessment & Plan Assessment * 89 year old F receiving VANCOMYCIN + PRIMAXIN for treatment of RLE cellulitis, UTI, and PNA * Blood Cx's and Urine Cx currently growing ESBL e coli * Patient w/ h/o ESBL e coli in urine (12/07/19) and h/o pseudomonas aeruginosa bacteremia (06/03/19) * Renal fxn improving SCr 1.72 --> 1.42 --> 1.17 (baseline SCr ~1.0), UOP > 0.5mL/kg/hr * Currently afebrile, WBC trending down, less tachycardia noted today, no hypotension noted, sats in 90's on CPAP overnight / 4L NC this AM Plan Vancomycin * 2750mg IV x 1 given 12/08 @1123 * Random level 12/09 AM = 18.2 @0607 * Vancomycin 1500mg (~11mg/kg due to BMI > 45) x 1 given 12/10 at ~1100 * Random level this AM = 18.5 at 0554 * Will again repeat Vancomycin 1500mg IV x 1 at 1100 today and repeat random level w/ AM labs tomorrow if therapy is to continue * Goal trough level for pneumonia, sepsis : 15 to 20 mcg/mL, however 10 - 20mcg/mL would be acceptable for SSTI Primaxin * eCrCl 30-59cc/min; continue 500mg IV Q 8 hrs due to bacteremia with ESBL organism and given patient BMI
[2019-12-10] MEDS: POTASSIUM CHLORIDE 20 MEQ TABCR PO SCH (11:18)
[2019-12-10] MEDS ORDERED: INSULIN GLARGINE SOLOSTAR 100 UNITS/ML 3 ML PEN SC ONE (11:30)
--- NOTE | 2019-12-10 12:41 | Cardiology Progress Note ---
Date of Service December 10, 2019 Assessment & Plan (1) Atrial fibrillation: The patient's ventricular response to her atrial fibrillation is adequately controlled on diltiazem. (2) Acute on chronic diastolic CHF (congestive heart failure): Agree with intravenous diuretics on a daily basis. Renal function has improved. (3) Hypertension: Adequate control on current medical regimen. (4) Chronic respiratory failure: Multifactorial and likely related to her CHF, COPD, prior lung wedge resection, sleep apnea, and her obesity. Is on chronic oxygen at home. Results & Data Vital Signs (Past 12 Hours) Vital Signs Temp Pulse Pulse Resp BP Pulse Ox 12/10/19 11:24 36.5 C 92 H 22 132/85 92 12/10/19 06:58 91 H 23 95 12/10/19 03:37 37.0 C 90 22 140/82 94 PG Care Time/CCT Total # of Minutes Spent Total Time Spent with Patient: Total time spent is greater than 50% in coordination of care (as documented) at patient's floor/unit and/or counseling patient: Coding Level of Care Code 07815 Subseq Hosp Care Lvl 3 Diagnoses Atrial fibrillation I48.91 Acute on chronic diastolic CHF (congestive heart failure) I50.33 Hypertension I10 Hypertension type: essential hypertension Chronic respiratory failure J96.10 (1) Hypertension Hypertension type: essential hypertension Qualified Code(s): I10 - Essential (primary) hypertension
--- NOTE | 2019-12-10 17:54 | XRay Report ---
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 No fractures are visualized. There is no radiog raphic evidence of osteomyelitis. There is diffuse soft tissue edema. There is no gas within the soft tissues. IMPRESSION: 1. Postsurgical change 2. Soft tissue edema 3. No acute fractures 4. No radiographic evidence of osteomyelitis ACT 112: Negative or not required by law. Electronically signed by: Tyshawn Anguiano M.D. 12/10/2019 5:53 PM
[2019-12-10] MEDS: POLYETHYLENE (MIRALAX) 17 GM PACK PO PRN (20:58)
[2019-12-10] MEDS: carvediloL 6.25 MG TAB PO SCH (21:00)
[2019-12-10] MEDS: MONTELUKAST SODIUM 10 MG TABLET PO SCH (21:00)
[2019-12-10] MEDS: DULOXETINE HCL 30 MG CAP PO SCH (21:00)
[2019-12-10] MEDS: INSULIN GLARGINE SOLOSTAR 100 UNITS/ML 3 ML PEN SC SCH (21:03)
[2019-12-11] MEDS: dilTIAZem HCL 125 MG in DEXTROSE 5% 100 ML IV SCH (02:28)
[2019-12-11] MEDS: LEVOTHYROXINE SODIUM 112 MCG TABLET PO SCH (05:37)
[2019-12-11] MEDS: methylPREDNISolone 60 MG in SYRINGE 0 ML IV SCH ×2 (05:39→17:57)
[2019-12-11 06:27] LABS: Albumin Level 2.2 gm/dl (3.4-5.0); BUN Creatinine Ratio 46.2 (10-20); Calcium 10.5 mg/dl (8.5-10.1); Est GFR (Non-African American) 50.9; Potassium 3.5 mmol/L (3.5-5.1)
[2019-12-11 06:28] LABS: Hemoglobin 9.1 g/dL (12.0-16.0); Mean Corpuscular Hemoglobin 34.2 pg (25-34); Mean Corpuscular Hgb Conc 33.7 g/dL (32-36); Mean Corpuscular Volume 101.5 fL (80-100); Mean Platelet Volume 13.4 fL (7.4-10.4); Nucleated RBC # (auto) 0.02 K/uL (0-0); Nucleated RBC % (auto) 0.1 %; Platelet Count 84 K/uL (130-400); RDW Coefficient of Variation 19.8 % (11.5-14.5); RDW Standard Deviation 73.7 fL (36.4-46.3); Red Blood Count 2.66 M/uL (4.2-5.4); White Blood Count 15.32 K/uL (4.8-10.8)
[2019-12-11 06:30] LABS: Albumin Globulin Ratio 0.6 (0.9-2); Basophils # (auto) 0.01 K/uL (0-0.2); Basophils % (auto) 0.1 %; Bilirubin,Total 0.8 mg/dl (0.2-1); Globulin 3.9 gm/dl (2.5-4.0); Hypogranular Neutrophils 2+; Immature Granulocytes # (auto) 0.52 K/uL (0.00-0.02); Immature Granulocytes % (auto) 3.4 %; Lymphocytes # (auto) 1.26 K/uL (1.2-3.4); Lymphocytes % (auto) 8.2 %; Macrocytosis Present; Monocytes # (auto) 1.27 K/uL (0.11-0.59); Monocytes % (auto) 8.3 %; Neutrophils # (auto) 12.26 K/uL (1.4-6.5); Platelet Estimate Decreased (Normal); Target Cells 1+; Total Protein 6.1 gm/dl (6.4-8.2)
[2019-12-11] MEDS: BUDESONIDE 0.5 MG/2 ML VIAL (PULMICORT) INH SCH ×2 (07:10→19:02)
[2019-12-11] MEDS: IPRATROPIUM BROMIDE NEB SOLN 0.02% 2.5 ML VIAL NEB SCH ×2 (07:10→15:28)
[2019-12-11] MEDS: IMIPENEM/CILASTATIN SODIUM 500 MG in DEXTROSE 5% 100 ML IV SCH ×2 (07:55→16:52)
[2019-12-11] MEDS ORDERED: VANCOMYCIN HCL 1,500 MG in SODIUM CHLORIDE 0.9% 500 ML IV ONE (08:00)
[2019-12-11] MEDS: CHECK FENTANYL PATCH PLACEMENT SCH ×2 (08:08→16:30)
[2019-12-11] MEDS: INSULIN ASPART 100 UNITS/ML 3 ML PEN SC SCH ×4 (09:02→21:35)
--- NOTE | 2019-12-11 09:50 | Cardiology Progress Note ---
Date of Service December 11, 2019 Assessment & Plan (1) Atrial fibrillation: The patient's ventricular response to her atrial fibrillation is adequately controlled on intravenous diltiazem. Would convert to oral. (2) Acute on chronic diastolic CHF (congestive heart failure): Agree with intravenous diuretics. (3) Hypertension: Adequate control on current medical regimen. (4) Chronic respiratory failure: Multifactorial and likely related to her CHF, COPD, prior lung wedge resection, sleep apnea, and her obesity. She is on chronic oxygen at home. Subjective Late entry. Patient was seen on December 11. The patient is resting comfortably in bed without complaints of chest pain or palpitations. She does complain of a cough. Physical Exam Physical Exam: In general is a morbidly obese white female lying supine in bed without complaints. HEENT exam is negative. Neck is supple with full carotid upstrokes. Jugular venous pressure cannot be assessed. Cardiovascular exam reveals an irregular rhythm with distant heart sounds. No obvious murmurs. Lungs are clear but no decreased breath sounds at the bases. Abdomen is obese. Extremities reveal 2+ pitting edema in the pretibial regions. A diffuse erythema noted across the lower extremities. Results & Data Vital Signs (Past 12 Hours) Vital Signs Temp Pulse Resp BP Pulse Ox 12/11/19 09:10 36.7 C 92 H 18 170/99 H 97 12/11/19 07:12 92 H 18 97 12/11/19 03:29 36.5 C 94 H 20 145/82 H 96 12/10/19 23:42 36.4 C L 86 20 130/89 95 12/10/19 22:51 93 12/10/19 22:08 84 20 96 PG Care Time/CCT Total # of Minutes Spent Total Time Spent with Patient: Total time spent is greater than 50% in coordination of care (as documented) at patient's floor/unit and/or counseling patient: Coding Level of Care Code 51254 Subseq Hosp Care Lvl 3 Diagnoses Atrial fibrillation I48.91 Acute on chronic diastolic CHF (congestive heart failure) I50.33 Hypertension I10 Hypertension type: essential hypertension Chronic respiratory failure J96.10 (1) Hypertension Hypertension type: essential hypertension Qualified Code(s): I10 - Essential (primary) hypertension
[2019-12-11] MEDS: FLUTICASONE/VILANTEROL 100/25MCG 14 PUFFS/INHALER INH SCH (09:58)
[2019-12-11] MEDS: carvediloL 6.25 MG TAB PO SCH ×2 (10:00→21:23)
[2019-12-11] MEDS: FLUTICASONE PROPIONATE NA SPR 16 GM BTL NAE SCH (10:00)
[2019-12-11] MEDS: UMECLIDINIUM BROMIDE 62.5MCG/BLISTER 7 PUFFS/INHALER INH SCH (10:01)
[2019-12-11] MEDS: POTASSIUM CHLORIDE 20 MEQ TABCR PO SCH (10:02)
[2019-12-11] MEDS: INSULIN GLARGINE SOLOSTAR 100 UNITS/ML 3 ML PEN SC SCH ×2 (10:05→21:35)
[2019-12-11] MEDS: FUROSEMIDE 40 MG in SYRINGE 0 ML IV SCH (10:07)
[2019-12-11] MEDS: MULTIVITAMIN TAB PO SCH (10:09)
[2019-12-11] MEDS: ROPINIROLE HCL 1 MG TABLET PO SCH ×4 (10:09→21:24)
[2019-12-11] MEDS: DICLOFENAC SOD 1% GEL 100 GM TUBE EXT SCH ×2 (10:10→21:24)
[2019-12-11] MEDS: allopurinoL 100 MG TAB PO SCH (10:10)
--- NOTE | 2019-12-11 10:45 | Pharmacy Report ---
Pharmacy Glycemic Short Note 2 - Date of Service December 11, 2019 - Glycemic Short BSG Results (Last 24 hours): 12/10/19 12/10/19 12/10/19 11:23 16:33 20:23 Glucose POC Glucose 179 H 160 H 173 H 12/11/19 12/11/19 05:39 07:22 Glucose 173 H POC Glucose 176 H OUTPATIENT ANTIDIABETIC REGIMEN: * n/a; no prior dx of DM * A1c = 5.9% 12/09/19 ASSESSMENT: 12/11 * BSGs well controlled over last 24 hrs * Solu-medrol continues at same dosage * Fasting BSG elevated,however acceptable this AM. FBS = 176 with 30 units basal insulin on board - will continue w/ current order as we have not yet achieved steady-state w/ current dose * Post-prandial BSGs well controlled w/ Novolog CF/CR 12/10 * Patient admitted for sepsis secondary to UTI, pneumonia and cellulitis, as well as ADHF. BLCXs and Urine Cx growing ESBL ecoli * Patient is receiving high dose IV steroid for resp failure * Steroids and infection leading to stress inducted hyperglycemia with sustained BSGs in 200s * Basal / Bolus SQ regimen initiated yesterday based upon weight and moderate/severe stress level. Will continue a similar regimen today, however will scale the basal insulin dose going forward given potential for steroid ta per in the future PLAN FOR INPATIENT GLYCEMIC CONTROL: * Basal insulin (no change) * 0 units if BSG less than 110 * 10 units if BSG 110-140 * 15 units if BSG 141-180 * 20 units if BSG above 180 * Bolus insulin (no change) * NovoLog per scale ACHS * Goal Range: Low 110 mg/dL - High 140 mg/dL * Correction Factor: 15 mg/dL/unit * Nutritional / Prandial insulin per carb ratio of 1 unit per 5 grams CHO consumed * Reevaluate insulin doses with each step down in steroid dose PLAN FOR DISCHARGE: * given A1c of 5.9% it is unlikely this patient will require medication for glycemic control on discharge - observed hyperglycemia is likely secondary to current stressors
[2019-12-11] MEDS: ALBUMIN 25% 50 ML IV SCH (10:50)
--- NOTE | 2019-12-11 14:23 | Pharmacy Report ---
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 No fractures are visualized. There is no radiographic evidence of osteomyelitis. There is diffuse soft tissue edema. There is no gas within the soft tissues. Plan Vancomycin * Random vancomycin level this AM = 16.9, still therapeutic * Will repeat 1500mg IV dose again this AM * Repeat trough will be drawn tomorrow AM given changing renal fxn. Renal fxn appears to be back to baseline. * Goal trough level for cellulitis : 10 to 20 mcg/mL; if PNA still considered goal: 15 to 20 mcg/mL * Will likely order 1500mg Q 24 hrs tomorow if level remains therapeutic. Primaxin * eCrCl 30-59cc/min; continue 500mg IV Q 8 hrs due to bacteremia with ESBL organism and given patient BMI Pharmacy will continue to follow and will adjust dose/frequency as necessary. Thank you.
[2019-12-11] MEDS: dilTIAZem HCl 60 MG TAB PO SCH ×2 (15:40→21:24)
--- NOTE | 2019-12-11 21:14 | Hospitalist Progress Note ---
Date of Service December 11, 2019 Assessment & Plan (1) Septicemia due to E. coli: admit blood cx's + for ESBL e.coli. source -- UTI. 2018 CT abd/pelvis without renal anomalies (stones, etc). will repeat the blood cx's today to ensure sterility. unfortunately, given the ESBL nature of the e.coli, we are looking at 14 days of Rx with ertapenem. change imipenem to ertapenem - first dose of latter tomorrow am. (2) UTI (urinary tract infection): 2nd ESBL e.coli. see "septicemia" above (3) Acute on chronic diastolic CHF (congestive heart failure): 10kg weight loss since admission. Cr remains stable. volume status improved. cont daily IV lasix. repeat BMP am. (4) Atrial fibrillation: Rates controlled on dilt drip. Will change to PO cardizem 60mg q6h. Stop dilt drip after that. Ultimately convert IR cardizem to cardizem CD. Cont coreg. In light of severe thrombocytopenia her coumadin has been placed on hold. Had lengthy discussion today with heme/onc - likely to hold the coumadin indefinitely. (5) Cellulitis of right lower extremity: Improving. Cont IV abx. Change imipenem to ertapenem. Cont IV vanco for MRSA coverage for now. Change vanco to doxy at discharge. (6) CARLITOS (obstructive sleep apnea): Cont CPAP at night (7) Bone marrow disorder: Patient has myelodysplasia. She opted not to have bone marrow biopsy in the past. Has chronically low platelets. S/p 1 unit of platelets this admission for acute/chronic thrombocytopenia. Keep off of coumadin - likely indefinitely. Platelets today in the 80s. Care d/w Dr Cheema. CBC in am for stability. (8) Chronic respiratory failure with hypoxia: on home O2, 4 liters. stable. (9) Hypothyroid: TSH normal this admission. Continue 112mcg levothyroxine daily. (10) Thrombocytopenia: As discussed above in "bone marrow d/o". Acute drop to the 10's likely due to bone marrow suppression from sepsis. s/p 1 unit of platelets earlier this admission. Platelet count trending towards her "baseline". Today it is in the 80s. CBC in am. (11) Elevated troponin: Likely due to demand ischemia in setting of septicemia and rapid A. fib. No evidence of ACS. (12) Acute kidney injury: resolved; likely was ATN was 2nd to sepsis (13) Chronic anticoagulation: holding coumadin - perhaps indefinitely was previously on coumadin due to prior VTE and a.fib (14) Stage III chronic kidney disease: Baseline CrCL 40s/50s (15) Chronic back pain: cont fentanyl patches as previous (16) Morbid obesity: BMI currently 45.7 (17) COPD (chronic obstructive pulmonary disease): mild wheezing is either due to COPD or from pulmonary edema. has been treated with IV steroids. currently on 60mg q12h. will decrease to 30mg q12h today. (18) DVT prophylaxis: chemical means contraindicated due to low platelets SCDs only family updated will address goals of care tomorrow remains DNR consider palliative care consult in light of patient stating several times she is at peace and is ok with dying in the future patient retains capacity Subjective patient overall feeling "Ok" at best. very tired. appetite fair at best. reports PARKS with moving in bed. she makes references to "going to the man upstairs" (ie - God). sister was at bedside along with another family member. tele overnight with a.fib, rates controlled. Review of Systems Constitutional: + fatigue; no fever and no chills Respiratory: no cough Cardiovascular: no chest pain Gastrointestinal: no abdominal pain Physical Exam Constitutional: + ill appearing, + morbidly obese and + frail appearing; no acute distress and no altered mental status ENMT: Mouth: + dry oral mucous membranes Respiratory: no respiratory distress Auscultation: + crackles (right base extending 1/2 way up back; left base minimal crackle) and + wheezes (focal - right base) Cardiovascular: Rate/Rhythm: regular rate and + irregularly irregular Heart Sounds: normal S1 and normal S2; no murmur Vessels: posterior tibial pulses present and dorsalis pedis pulses present; no JVD Extremities: + edema Gastrointestinal (Abdomen): normal bowel sounds, soft, nontender, no hepatosplenomegaly Skin: background of stasis changes & dermatitis both legs, R>L. Cellulitis - mild - right lord. ?chronic erythema of medial right thigh vs cellulitis vs hematoma vs other?? Psychiatric: Orientation: alert and oriented x 3 Results & Data Vital Signs (Past 12 Hours) Vital Signs Temp Pulse Pulse Resp BP Pulse Ox 12/11/19 19:55 36.6 C 81 17 147/97 H 95 12/11/19 19:02 87 17 97 12/11/19 15:28 93 H 16 98 12/11/19 15:14 36.6 C 85 20 138/83 97 12/11/19 12:41 36.7 C 91 H 17 150/84 H 97 12/11/19 11:03 36.6 C 96 H 22 140/95 96 12/11/19 09:55 132/95 Laboratory Results Laboratory Results - last 24 hr 12/11/19 12/11/19 12/11/19 05:39 05:39 05:39 WBC 15.32 H RBC 2.66 L Hgb 9.1 L Hct 27.0 L MCV 101.5 H MCH 34.2 H MCHC 33.7 RDW Std Deviation 73.7 H RDW Coeff of Marta 19.8 H Plt Count 84 L MPV 13.4 H Immature Gran % (Auto) 3.4 Neut % (Auto) 80.0 Lymph % (Auto) 8.2 [place] % (Auto) 8.3 Eos % (Auto) 0.0 Baso % (Auto) 0.1 Immature Gran # (Auto) 0.52 H Neut # (Auto) 12.26 H Lymph # (Auto) 1.26 [place] # (Auto) 1.27 H Eos # (Auto) 0.00 Baso # (Auto) 0.01 Absolute Nucleated RBC 0.02 H Nucleated RBC % (auto) 0.1 Hypogranular Neuts 2+ Platelet Estimate Decreased L Macrocytosis Present Target Cells 1+ Sodium 138 Potassium 3.5 Chloride 101 Carbon Dioxide 32 Anion Gap 5.0 BUN 46 H Creatinine 0.99 Est Cr Clr Drug Dosing 55.0 Est GFR ( Amer) 59.0 Est GFR (Non-Af Amer) 50.9 BUN/Creatinine Ratio 46.2 H Glucose 173 H POC Glucose Calcium 10.5 H Total Bilirubin 0.8 AST 8 L ALT 24 Alkaline Phosphatase 111 Total Protein 6.1 L Albumin 2.2 L Globulin 3.9 Albumin/Globulin Ratio 0.6 L Random Vancomycin 16.9 12/11/19 12/11/19 12/11/19 07:22 11:30 16:18 WBC RBC Hgb Hct MCV MCH MCHC RDW Std Deviation RDW Coeff of Marta Plt Count MPV Immature Gran % (Auto) Neut % (Auto) Lymph % (Auto) [place] % (Auto) Eos % (Auto) Baso % (Auto) Immature Gran # (Auto) Neut # (Auto) Lymph # (Auto) [place] # (Auto) Eos # (Auto) Baso # (Auto) Absolute Nucleated RBC Nucleated RBC % (auto) Hypogranular Neuts Platelet Estimate Macrocytosis Target Cells Sodium Potassium Chloride Carbon Dioxide Anion Gap BUN Creatinine Est Cr Clr Drug Dosing Est GFR ( Amer) Est GFR (Non-Af Amer) BUN/Creatinine Ratio Glucose POC Glucose 176 H 201 H 181 H Calcium Total Bilirubin AST ALT Alkaline Phosphatase Total Protein Albumin Globulin Albumin/Globulin Ratio Random Vancomycin 12/11/19 20:55 WBC RBC Hgb Hct MCV MCH MCHC RDW Std Deviation RDW Coeff of Marta Plt Count MPV Immature Gran % (Auto) Neut % (Auto) Lymph % (Auto) [place] % (Auto) Eos % (Auto) Baso % (Auto) Immature Gran # (Auto) Neut # (Auto) Lymph # (Auto) [place] # (Auto) Eos # (Auto) Baso # (Auto) Absolute Nucleated RBC Nucleated RBC % (auto) Hypogranular Neuts Platelet Estimate Macrocytosis Target Cells Sodium Potassium Chloride Carbon Dioxide Anion Gap BUN Creatinine Est Cr Clr Drug Dosing Est GFR ( Amer) Est GFR (Non-Af Amer) BUN/Creatinine Ratio Glucose POC Glucose 172 H Calcium Total Bilirubin AST ALT Alkaline Phosphatase Total Protein Albumin Globulin Albumin/Globulin Ratio Random Vancomycin Diagnostic Findings blood/urine cx's - ESBL e.coli PG Care Time/CCT Total # of Minutes Spent Total Time Spent with Patient: Total time spent is greater than 50% in coordination of care (as documented) at patient's floor/unit and/or counseling patient: Coding Level of Care Code 39231 Subseq Hosp Care Lvl 3 Diagnoses Septicemia due to E. coli A41.51 UTI (urinary tract infection) N30.00 Urinary tract infection type: acute cystitis Hematuria presence: without hematuria Acute on chronic diastolic CHF (congestive heart failure) I50.33 Atrial fibrillation I48.91 Atrial fibrillation type: unspecified Cellulitis of right lower extremity L03.115 CARLITOS (obstructive sleep apnea) G47.33 Bone marrow disorder D75.9 Chronic respiratory failure with hypoxia J96.11 Hypothyroid E03.9 Hypothyroidism type: acquired Thrombocytopenia D69.6 Elevated troponin R79.89 Acute kidney injury N17.9 Chronic anticoagulation Z79.01 Stage III chronic kidney disease N18.3 Chronic back pain M54.5; G89.29 Back pain location: low back pain Back pain laterality: unspecified Sciatica presence: unspecified whether sciatica present Morbid obesity E66.01 COPD (chronic obstructive pulmonary disease) J44.1 COPD type: COPD with acute exacerbation DVT prophylaxis Z29.9 (1) Atrial fibrillation Atrial fibrillation type: unspecified Qualified Code(s): I48.91 - Unspecified atrial fibrillation (2) Hypothyroid Hypothyroidism type: acquired Qualified Code(s): E03.9 - Hypothyroidism, unspecified (3) Chronic back pain Back pain location: low back pain Back pain laterality: unspecified Sciatica presence: unspecified whether sciatica present Qualified Code(s): M54.5 - Low back pain; G89.29 - Other chronic pain (4) UTI (urinary tract infection) Urinary tract infection type: acute cystitis Hematuria presence: without hematuria Qualified Code(s): N30.00 - Acute cystitis without hematuria (5) COPD (chronic obstructive pulmonary disease) COPD type: COPD with acute exacerbation Qualified Code(s): J44.1 - Chronic obstructive pulmonary disease with (acute) exacerbation
[2019-12-11] MEDS: fentaNYL 12 MCG/HR TDSY TD SCH (21:22)
[2019-12-11] MEDS: DULOXETINE HCL 30 MG CAP PO SCH (21:23)
[2019-12-11] MEDS: fentaNYL 25 MCG/HR TDSY TD SCH (21:23)
[2019-12-11] MEDS: MONTELUKAST SODIUM 10 MG TABLET PO SCH (21:24)
[2019-12-12] MEDS: IPRATROPIUM BROMIDE NEB SOLN 0.02% 2.5 ML VIAL NEB SCH ×4 (00:09→23:20)
[2019-12-12] MEDS: CHECK FENTANYL PATCH PLACEMENT SCH ×3 (00:19→16:47)
[2019-12-12] MEDS: dilTIAZem HCl 60 MG TAB PO SCH ×4 (03:43→20:28)
[2019-12-12] MEDS: methylPREDNISolone 30 MG in SYRINGE 0 ML IV SCH ×2 (06:18→17:37)
[2019-12-12] MEDS: LEVOTHYROXINE SODIUM 112 MCG TABLET PO SCH (06:18)
[2019-12-12] MEDS: BUDESONIDE 0.5 MG/2 ML VIAL (PULMICORT) INH SCH ×2 (07:02→19:32)
[2019-12-12 07:54] LABS: Hematocrit (blood only) 28.4 % (37-47); Hemoglobin 9.6 g/dL (12.0-16.0); Mean Corpuscular Hemoglobin 34.7 pg (25-34); Mean Corpuscular Hgb Conc 33.8 g/dL (32-36); Mean Corpuscular Volume 102.5 fL (80-100); Mean Platelet Volume 12.7 fL (7.4-10.4); Nucleated RBC # (auto) 0.02 K/uL (0-0); Nucleated RBC % (auto) 0.1 %; Platelet Count 116 K/uL (130-400); RDW Coefficient of Variation 19.8 % (11.5-14.5); RDW Standard Deviation 74.4 fL (36.4-46.3); Red Blood Count 2.77 M/uL (4.2-5.4); White Blood Count 18.51 K/uL (4.8-10.8)
[2019-12-12 07:55] LABS: ALC (manual) 0.48 K/uL (1.2-3.4); Anisocytosis Present; Lymphocytes # (manual) 0.48 K/uL (1.2-3.4); Lymphocytes % (manual) 2.6 %; Monocytes # (manual) 0.48 K/uL (0.11-0.59); Monocytes % (manual) 2.6 %; Myelocytes # (manual) 0.65 K/uL (0-0); Myelocytes % (manual) 3.5 %; Neutrophils % (manual) 91.3 %; Platelet Estimate Decreased (Normal); Target Cells 2+
[2019-12-12] MEDS: ERTAPENEM SODIUM 1,000 MG in SODIUM CHLORIDE 0.9% 50 ML IV SCH (07:55)
[2019-12-12] MEDS: FUROSEMIDE 40 MG in SYRINGE 0 ML IV SCH (07:56)
[2019-12-12] MEDS: allopurinoL 100 MG TAB PO SCH (07:56)
[2019-12-12] MEDS: carvediloL 6.25 MG TAB PO SCH ×2 (07:56→20:28)
[2019-12-12] MEDS: UMECLIDINIUM BROMIDE 62.5MCG/BLISTER 7 PUFFS/INHALER INH SCH (07:57)
[2019-12-12] MEDS: FLUTICASONE/VILANTEROL 100/25MCG 14 PUFFS/INHALER INH SCH (07:57)
[2019-12-12] MEDS: FLUTICASONE PROPIONATE NA SPR 16 GM BTL NAE SCH (07:57)
[2019-12-12] MEDS: DICLOFENAC SOD 1% GEL 100 GM TUBE EXT SCH ×2 (07:58→20:28)
[2019-12-12] MEDS: POTASSIUM CHLORIDE 20 MEQ TABCR PO SCH (07:58)
[2019-12-12] MEDS: MULTIVITAMIN TAB PO SCH (07:58)
[2019-12-12] MEDS: ROPINIROLE HCL 1 MG TABLET PO SCH ×4 (07:59→20:28)
[2019-12-12 08:01] LABS: BUN Creatinine Ratio 50.5 (10-20); Calcium 10.7 mg/dl (8.5-10.1); Est GFR (African American) 68.9; Est GFR (Non-African American) 59.5; Magnesium 2.4 mg/dl (1.8-2.4); Potassium 3.7 mmol/L (3.5-5.1)
[2019-12-12] MEDS: INSULIN GLARGINE SOLOSTAR 100 UNITS/ML 3 ML PEN SC SCH ×2 (08:08→20:23)
[2019-12-12] MEDS: INSULIN ASPART 100 UNITS/ML 3 ML PEN SC SCH ×4 (08:09→20:25)
[2019-12-12] MEDS ORDERED: VANCOMYCIN HCL 1,500 MG in SODIUM CHLORIDE 0.9% 500 ML IV ONE (09:00)
--- NOTE | 2019-12-12 10:09 | Cardiology Progress Note ---
Date of Service December 12, 2019 Assessment & Plan (1) Atrial fibrillation: The patient's ventricular response to her atrial fibrillation is adequately controlled on diltiazem and carvedilol. (2) Acute on chronic diastolic CHF (congestive heart failure): Agree with intravenous diuretics on a daily basis. (3) Hypertension: Adequate control on current medical regimen. (4) Chronic respiratory failure: Multifactorial and related to her CHF, COPD, prior lung wedge resection, sleep apnea, and her obesity. Is on chronic oxygen at home. Subjective The patient is stable and resting comfortably in bed without complaints of chest pain or dyspnea. Physical Exam Physical Exam: In general is a morbidly obese white female lying supine in bed without complaints. HEENT exam is negative. Neck is supple with full carotid upstrokes. Jugular venous pressure cannot be assessed. Cardiovascular exam reveals an irregular rhythm with distant heart sounds. No obvious murmurs. Lungs are clear but no decreased breath sounds at the bases. Abdomen is obese. Extremities reveal 2+ pitting edema in the pretibial regions. A diffuse erythema noted across the lower extremities. Results & Data Vital Signs (Past 12 Hours) Vital Signs Temp Pulse Resp BP Pulse Ox 12/12/19 07:04 83 18 98 12/12/19 07:00 36.4 C L 73 16 122/84 96 12/12/19 03:44 37.0 C 98 H 22 150/81 H 98 12/12/19 00:10 90 20 96 12/11/19 23:34 36.5 C 90 22 139/79 97 Laboratory Results alarm security or surveillance monitor notes atrial fibrillation with a controlled ventricular response. PG Care Time/CCT Total # of Minutes Spent Total Time Spent with Patient: Total time spent is greater than 50% in coordination of care (as documented) at patient's floor/unit and/or counseling patient: Coding Level of Care Code 51848 Subseq Hosp Care Lvl 3 Diagnoses Atrial fibrillation I48.91 Atrial fibrillation type: unspecified Acute on chronic diastolic CHF (congestive heart failure) I50.33 Hypertension I10 Hypertension type: essential hypertension Chronic respiratory failure J96.10 (1) Atrial fibrillation Atrial fibrillation type: unspecified Qualified Code(s): I48.91 - Unspecified atrial fibrillation (2) Hypertension Hypertension type: essential hypertension Qualified Code(s): I10 - Essential (primary) hypertension
--- NOTE | 2019-12-12 10:48 | Pharmacy Report ---
Pharmacy Glycemic Short Note 2 - Date of Service December 12, 2019 - Glycemic Short BSG Results (Last 24 hours): 12/11/19 12/11/19 12/11/19 11:30 16:18 20:55 Glucose POC Glucose 201 H 181 H 172 H 12/12/19 12/12/19 06:47 07:37 Glucose 177 H POC Glucose 180 H OUTPATIENT ANTIDIABETIC REGIMEN: * n/a; no prior dx of DM * A1c = 5.9% 12/09/19 ASSESSMENT: 12/12 * BSGs reasonably well controlled, BSGs have ranged 172-201 over the last 24 hrs - only two BSG above 180 (181 and 201) * Steroid dose is being reduced by 50% today - would expect some improved insulin sensitivity in the next 24 hrs, however given BSGs are running border- line high, I plan to continue the current insulin orders another 24 hrs. The Lantus order does have a dosing scale should insulin sensitivity improve by HS 12/11 * BSGs well controlled over last 24 hrs * Solu-medrol continues at same dosage * Fasting BSG elevated,however acceptable this AM. FBS = 176 with 30 units basal insulin on board - will continue w/ current order as we have not yet achieved steady-state w/ current dose * Post-prandial BSGs well controlled w/ Novolog CF/CR 12/10 * Patient admitted for sepsis secondary to UTI, pneumonia and cellulitis, as well as ADHF. BLCXs and Urine Cx growing ESBL ecoli * Patient is receiving high dose IV steroid for resp failure * Steroids and infection leading to stress inducted hyperglycemia with sustained BSGs in 200s * Basal / Bolus SQ regimen initiated yesterday based upon weight and moderate/severe stress level. Will continue a similar regimen today, however will scale the basal insulin dose going forward given potential for steroid taper in the future PLAN FOR INPATIENT GLYCEMIC CONTROL: * Basal insulin (no change) * 0 units if BSG less than 110 * 10 units if BSG 110-140 * 15 units if BSG 141-180 * 20 units if BSG above 180 * Bolus insulin (no change) * NovoLog per scale ACHS * Goal Range: Low 110 mg/dL - High 140 mg/dL * Correction Factor: 15 mg/dL/unit * Nutritional / Prandial insulin per carb ratio of 1 unit per 5 grams CHO consumed * Reevaluate insulin doses with each step down in steroid dose PLAN FOR DISCHARGE: * given A1c of 5.9% it is unlikely this patient will require medication for glycemic control on discharge - observed hyperglycemia is likely secondary to current stressors
--- NOTE | 2019-12-12 10:57 | Pharmacy Report ---
Pharmacy Abx Dose Short Note - Date of Service December 12, 2019 - Assessment & Plan Assessment * 89 year old F receiving IV Vancomycin therapy for LE cellulitis; also receiving Ertapenem for ESBL e coli bacteremia / UTI. Pharmacy is consulted to dose Vanco. * Day # 5 Vancomycin therapy (duration unclear - 10 days?) * Renal fxn stable and at baseline Plan Vancomycin * Random AM vancomycin level = 16.9mcg/mL * Given consistent clearance of vancomycin over 24 hrs with same wt based dose, will continue vancomycin 1500mg IV Q 24 hrs at this time. * Goal trough for skin/skin structure infxn: 10-20mcg/mL Pharmacy will continue to follow and will adjust dose/frequency as necessary. Thank you.
[2019-12-12] MEDS: MONTELUKAST SODIUM 10 MG TABLET PO SCH (20:28)
[2019-12-12] MEDS: DULOXETINE HCL 30 MG CAP PO SCH (20:28)
--- NOTE | 2019-12-12 21:06 | Hospitalist Progress Note ---
Date of Service December 12, 2019 Assessment & Plan (1) Septicemia due to E. coli: admit blood cx's + for ESBL e.coli. source -- UTI. 2018 CT abd/pelvis without renal anomalies (stones, etc). repeat blood cx's from 12/11 thus far negative. unfortunately, given the ESBL nature of the e.coli, we are looking at 14 days of Rx with ertapenem. cont ertapenem. (2) UTI (urinary tract infection): 2nd ESBL e.coli. see "septicemia" above (3) Acute on chronic diastolic CHF (congestive heart failure): cont IV lasix; BUN & Cr stable; still appears volume overloaded clinically. repeat BMP am. (4) Atrial fibrillation: Rates controlled with PO cardizem 60mg q6h. Ultimately convert IR cardizem to cardizem CD. Cont coreg. In light of severe thrombocytopenia her coumadin has been stopped; likely to keep her off of it especially since we are likely going to transition to palliative care/hospice. (5) Cellulitis of right lower extremity: Improving. Cont IV abx (vanco and ertapenem). (6) CARLITOS (obstructive sleep apnea): Cont CPAP at night (7) Bone marrow disorder: Patient has myelodysplasia. She opted not to have bone marrow biopsy in the past. Has chronically low platelets. S/p 1 unit of platelets this admission for acute/chronic thrombocytopenia. Keep off of coumadin indefinitely. Platelets today >100. Care d/w Dr Cheema over last 2 days. CBC in am. (8) Chronic respiratory failure with hypoxia: on home O2, 4 liters. stable. (9) Hypothyroid: TSH normal this admission. Continue 112mcg levothyroxine daily. (10) Thrombocytopenia: As discussed above in "bone marrow d/o". Acute drop to the 10's likely due to bone marrow suppression from sepsis. s/p 1 unit of platelets earlier this admission. Platelet count trending towards her "baseline". (11) Elevated troponin: Likely due to demand ischemia in setting of septicemia and rapid A. fib. No evidence of ACS. (12) Acute kidney injury: resolved; likely was sepsis-associated ATN (13) Chronic anticoagulation: was previously on coumadin due to prior VTE and a.fib - now stopped (14) Stage III chronic kidney disease: Baseline CrCL 40s/50s (15) Chronic back pain: cont fentanyl patches as previous (16) Morbid obesity: BMI currently 45-50 (17) COPD (chronic obstructive pulmonary disease): cont IV steroids 30mg q12h. no wean today. (18) DVT prophylaxis: SCDs only lengthy discussion regarding goals for care with patient and her [id number] patient has been quite clear over last few days that she would like to transition to comfort care/palliative care we discussed these options in detail will have palliative care see formally in consult tomorrow suspect we will be transitioning to hospice upon return to SNF total time today 50 minutes, >50% of which was spent counseling at bedside Subjective patient again states she is tired. tele overnight with rate-controlled a.fib. [id number] at bedside. we discussed goals of care. patient again reiterated that she is "ready to go to [facility]." she has been saying this throughout her stay. [id number] states that even over the last few weeks-months Ms Mendez has been saying she is "ready to go". no new complaints. low back pain remains. Review of Systems Constitutional: + fatigue; no fever Respiratory: + cough and + dyspnea on exertion Cardiovascular: no chest pain Gastrointestinal: no abdominal pain and no nausea Physical Exam Constitutional: + ill appearing, + morbidly obese and + frail appearing; no acute distress and no altered mental status ENMT: external ear and nose normal, oropharynx normal Respiratory: no respiratory distress Auscultation: + crackles (R base > L base) and + wheezes (b/l) Cardiovascular: Rate/Rhythm: regular rate and + irregularly irregular Heart Sounds: normal S1 and normal S2; no murmur Vessels: posterior tibial pulses present and dorsalis pedis pulses present; no JVD Extremities: + edema (no change from 12/11 exam) Gastrointestinal (Abdomen): normal bowel sounds, soft, nontender, no hepatosplenomegaly Percussion/Palpation: + abdominal mass (vs focal scar tissue high epigastric region ) Skin: resolving cellulitis RLE - mainly below the knee - on background of venous stasis dermatitis; hematoma vs hyperpigmented skin, right medial thigh - no change Psychiatric: Orientation: alert and oriented x 3 Results & Data ([facility]) Vital Signs (Past 12 Hours) Vital Signs Temp Pulse Pulse Resp BP Pulse Ox 12/12/19 20:30 37.1 C 85 22 126/91 96 12/12/19 19:45 93 H 18 97 12/12/19 16:00 85 12/12/19 15:26 90 18 94 12/12/19 15:24 36.5 C 97 H 20 131/76 93 12/12/19 11:30 36.5 C 82 20 135/71 97 Laboratory Results Laboratory Results - last 24 hr 12/12/19 12/12/19 12/12/19 06:47 06:47 06:47 WBC 18.51 H RBC 2.77 L Hgb 9.6 L Hct 28.4 L MCV 102.5 H MCH 34.7 H MCHC 33.8 RDW Std Deviation 74.4 H RDW Coeff of Marta 19.8 H Plt Count 116 L MPV 12.7 H Absolute Nucleated RBC 0.02 H Nucleated RBC % (auto) 0.1 Neutrophils % (Manual) 91.3 Lymphocytes % (Manual) 2.6 Monocytes % (Manual) 2.6 Myelocytes % (Man) 3.5 Neutrophils # (Manual) 16.90 H Total Absolute Neuts 16.90 H Lymphocytes # (Manual) 0.48 L Total Abs Lymphocytes 0.48 L Monocytes # (Manual) 0.48 Myelocytes # (Manual) 0.65 H Platelet Estimate Decreased L Anisocytosis Present Target Cells 2+ Sodium 140 Potassium 3.7 Chloride 101 Carbon Dioxide 37 H Anion Gap 2.0 L BUN 44 H Creatinine 0.87 Est Cr Clr Drug Dosing 63.0 Est GFR ( Amer) 68.9 Est GFR (Non-Af Amer) 59.5 BUN/Creatinine Ratio 50.5 H Glucose 177 H POC Glucose Calcium 10.7 H Magnesium 2.4 Random Vancomycin 16.9 12/12/19 12/12/19 12/12/19 07:37 11:07 16:44 WBC RBC Hgb Hct MCV MCH MCHC RDW Std Deviation RDW Coeff of Marta Plt Count MPV Absolute Nucleated RBC Nucleated RBC % (auto) Neutrophils % (Manual) Lymphocytes % (Manual) Monocytes % (Manual) Myelocytes % (Man) Neutrophils # (Manual) Total Absolute Neuts Lymphocytes # (Manual) Total Abs Lymphocytes Monocytes # (Manual) Myelocytes # (Manual) Platelet Estimate Anisocytosis Target Cells Sodium Potassium Chloride Carbon Dioxide Anion Gap BUN Creatinine Est Cr Clr Drug Dosing Est GFR ( Amer) Est GFR (Non-Af Amer) BUN/Creatinine Ratio Glucose POC Glucose 180 H 181 H 115 H Calcium Magnesium Random Vancomycin 12/12/19 20:21 WBC RBC Hgb Hct MCV MCH MCHC RDW Std Deviation RDW Coeff of Marta Plt Count MPV Absolute Nucleated RBC Nucleated RBC % (auto) Neutrophils % (Manual) Lymphocytes % (Manual) Monocytes % (Manual) Myelocytes % (Man) Neutrophils # (Manual) Total Absolute Neuts Lymphocytes # (Manual) Total Abs Lymphocytes Monocytes # (Manual) Myelocytes # (Manual) Platelet Estimate Anisocytosis Target Cells Sodium Potassium Chloride Carbon Dioxide Anion Gap BUN Creatinine Est Cr Clr Drug Dosing Est GFR ( Amer) Est GFR (Non-Af Amer) BUN/Creatinine Ratio Glucose POC Glucose 98 Calcium Magnesium Random Vancomycin Diagnostic Findings blood cx's - repeat from 12/11 thus far negative PG Care Time/CCT Total # of Minutes Spent Total Time Spent with Patient: Total time spent is greater than 50% in coordination of care (as documented) at patient's floor/unit and/or counseling patient: Coding Level of Care Code 57872 Subseq Hosp Care Lvl 3 Diagnoses Septicemia due to E. coli A41.51 UTI (urinary tract infection) N30.00 Urinary tract infection type: acute cystitis Hematuria presence: without hematuria Acute on chronic diastolic CHF (congestive heart failure) I50.33 Atrial fibrillation I48.91 Atrial fibrillation type: unspecified Cellulitis of right lower extremity L03.115 CARLITOS (obstructive sleep apnea) G47.33 Bone marrow disorder D75.9 Chronic respiratory failure with hypoxia J96.11 Hypothyroid E03.9 Hypothyroidism type: acquired Thrombocytopenia D69.6 Elevated troponin R79.89 Acute kidney injury N17.9 Chronic anticoagulation Z79.01 Stage III chronic kidney disease N18.3 Chronic back pain M54.5; G89.29 Back pain location: low back pain Back pain laterality: unspecified Sciatica presence: unspecified whether sciatica present Morbid obesity E66.01 COPD (chronic obstructive pulmonary disease) J44.1 COPD type: COPD with acute exacerbation DVT prophylaxis Z29.9 (1) UTI (urinary tract infection) Urinary tract infection type: acute cystitis Hematuria presence: without hematuria Qualified Code(s): N30.00 - Acute cystitis without hematuria (2) Atrial fibrillation Atrial fibrillation type: unspecified Qualified Code(s): I48.91 - Unspecified atrial fibrillation (3) Hypothyroid Hypothyroidism type: acquired Qualified Code(s): E03.9 - Hypothyroidism, unspecified (4) Chronic back pain Back pain location: low back pain Back pain laterality: unspecified Sciatica presence: unspecified whether sciatica present Qualified Code(s): M54.5 - Low back pain; G89.29 - Other chronic pain (5) COPD (chronic obstructive pulmonary disease) COPD type: COPD with acute exacerbation Qualified Code(s): J44.1 - Chronic obstructive pulmonary disease with (acute) exacerbation
[2019-12-13] MEDS: CHECK FENTANYL PATCH PLACEMENT SCH ×3 (00:10→16:10)
[2019-12-13] MEDS: dilTIAZem HCl 60 MG TAB PO SCH ×3 (02:55→16:09)
[2019-12-13] MEDS: LEVOTHYROXINE SODIUM 112 MCG TABLET PO SCH (05:59)
[2019-12-13] MEDS: methylPREDNISolone 30 MG in SYRINGE 0 ML IV SCH (05:59)
[2019-12-13 06:36] LABS: ALC (manual) 2.05 K/uL (1.2-3.4); ANC (manual) 25.53 K/uL (1.4-6.5); Hematocrit (blood only) 30.7 % (37-47); Hemoglobin 10.1 g/dL (12.0-16.0); Lymphocytes # (manual) 2.13 K/uL (1.2-3.4); Mean Corpuscular Hemoglobin 34.1 pg (25-34); Mean Corpuscular Hgb Conc 32.9 g/dL (32-36); Mean Corpuscular Volume 103.7 fL (80-100); Mean Platelet Volume 11.7 fL (7.4-10.4); Monocytes # (manual) 1.22 K/uL (0.11-0.59); Myelocytes # (manual) 0.61 K/uL (0-0); Neutrophils # (manual) 26.53 K/uL (1.4-6.5); Platelet Count 172 K/uL (130-400); RDW Coefficient of Variation 19.4 % (11.5-14.5); RDW Standard Deviation 73.4 fL (36.4-46.3); Red Blood Count 2.96 M/uL (4.2-5.4)
[2019-12-13 06:38] LABS: BUN Creatinine Ratio 53.4 (10-20); Calcium 10.9 mg/dl (8.5-10.1); Creatinine Clr Calc Pharmacy 66.8 ml/min; Est GFR (African American) 79.9; Est GFR (Non-African American) 68.9; Potassium 3.9 mmol/L (3.5-5.1)
[2019-12-13 06:41] LABS: White Blood Count 30.49 K/uL (4.8-10.8)
[2019-12-13 06:42] LABS: Hypogranular Neutrophils 3+; Target Cells 2+
[2019-12-13] MEDS: BUDESONIDE 0.5 MG/2 ML VIAL (PULMICORT) INH SCH (06:53)
[2019-12-13] MEDS: IPRATROPIUM BROMIDE NEB SOLN 0.02% 2.5 ML VIAL NEB SCH ×2 (06:54→15:01)
[2019-12-13] MEDS: DICLOFENAC SOD 1% GEL 100 GM TUBE EXT SCH (07:56)
[2019-12-13] MEDS: FUROSEMIDE 40 MG in SYRINGE 0 ML IV SCH (07:57)
[2019-12-13] MEDS: allopurinoL 100 MG TAB PO SCH (07:57)
[2019-12-13] MEDS: carvediloL 6.25 MG TAB PO SCH (07:57)
[2019-12-13] MEDS: POTASSIUM CHLORIDE 20 MEQ TABCR PO SCH (07:58)
[2019-12-13] MEDS: UMECLIDINIUM BROMIDE 62.5MCG/BLISTER 7 PUFFS/INHALER INH SCH (07:58)
[2019-12-13] MEDS: FLUTICASONE PROPIONATE NA SPR 16 GM BTL NAE SCH (07:58)
[2019-12-13] MEDS: ROPINIROLE HCL 1 MG TABLET PO SCH ×3 (07:58→16:09)
[2019-12-13] MEDS: FLUTICASONE/VILANTEROL 100/25MCG 14 PUFFS/INHALER INH SCH (07:58)
[2019-12-13] MEDS: MULTIVITAMIN TAB PO SCH (07:59)
[2019-12-13] MEDS: INSULIN GLARGINE SOLOSTAR 100 UNITS/ML 3 ML PEN SC SCH (08:00)
[2019-12-13] MEDS: ERTAPENEM SODIUM 1,000 MG in SODIUM CHLORIDE 0.9% 50 ML IV SCH (08:01)
[2019-12-13] MEDS: INSULIN ASPART 100 UNITS/ML 3 ML PEN SC SCH ×3 (08:02→16:53)
[2019-12-13] MEDS ORDERED: VANCOMYCIN HCL 1,500 MG in SODIUM CHLORIDE 0.9% 500 ML IV SCH (09:00)
--- NOTE | 2019-12-13 09:21 | Palliative Care Consultation ---
Date of Consultation December 13, 2019 Assessment & Plan (1) Goals of care, counseling/discussion: This is an 89 year old female who is a permanent resident at [facility] and presented to the ED with altered mental status, generalized weakness, SOB, and swelling/erythema of her RLE. Additional PMH includes: COPD, diastolic CHF, HTN, CKD stage III, macrocytic anemia with myelodysplasia, pAF on Warfarin, and thrombocytopenia. Her sister in and Yas HARRIS ([place]) was with the patient upon her evaluation in the ED. A CXR was performed and indicated pulmonary congestion and cardiomegaly, along with trace pleural effusions. She was admitted with a diagnosis of pAF with RVR, sepsis and an acute exacerbation of diastolic CHF. Her blood cultures have returned (+) for ESBL E.Coli in the urine. Her CHF has been managed by Cardiology and is stable with diuretics, steroids and antibiotics. The patient wears CPAP at bedtime for CARLITOS. She reports having chronic back pain for which she wears Fentanyl patches chronically for management. In the ED the patients POA states that patient wishes CODE STATUS to be DNR/DNI as well as she wants to pursue comfort measures without any intervention except for antibiotics, fluids, heart medication such as medication to slow her heart rate, or blood transfusion with blood products. Palliative Care was consulted for a goals of care conversation, -I met with the patient, Anel, in room 204. Her sister in Yas high (Carole) was at the bedside. The patient was in no apparent distress, tolerating ice chips. -A family meeting is arranged for 1300 to discuss goals of care when the patients niece and nephew are able to be present. -The patient has made multiple comments regarding her end of life, just "wishing she could go home". I asked similar questions today and she confirmed she wants to leave the hospital and wants to "be comfortable". Update: -Family meeting held in room 204. -We discussed patients overall condition and decline over the past few months and how she needs help with most of her ADLs. We talked about Hospice and its capabilities, along with her qualifying for Hospice with CHF and COPD. We discussed therapies included with rehabilitation, including ST, which the patient is NOT any longer interested in continuing with these services, even while in the hospital. We also touched on concerns for aspiration and the risks that accompany this, along with focusing on knowing risk of not following fluid restrictions. -We discussed and completed a POLST form indicating DNR/DNI, Comfort Measures Only, trial abx, and no artificial hydration or nutrition. -We discussed discontinuing BiPAP and she is comfortable with this as well. -She does not want any additional blood draws, vital signs, but is comfortable continuing with her current medications, if able to tolerate them. -The patient was visible working using her diaphragm to breathe. Discussed having some comfort medications available should she need them while she is still here at the hospital. She is comfortable with that. She would like to continue medications if shes awake enough to, understands eventually medicaations will be decreased and more comfort focused. -Family is interested in learning about the hospice agencies. I discussed with case management as well who will come to the patients room to discuss further. -I will order Roxanol 5 mg SL Q3 PRN for air hunger/pain. Continue using Fentanyl patch as well. We discussed that the more she receives the Roxanol she will become les interactive and eventually pass away. -Discussed that she may be transferred to another room in the hospital until she returns to [facility]. Family in agreement. All of the above was discussed with the patients Hospitalist, Dr. Jiménez and RN, Jyoti Conway . -Likely DC today or over the weekend -PPS: 20% (2) Septicemia due to E. coli: (3) Atrial fibrillation: Atrial fibrillation type: unspecified Qualified Code(s): I48.91 - Unspecified atrial fibrillation (4) Chronic respiratory failure with hypoxia: (5) Acute on chronic diastolic CHF (congestive heart failure): (6) Leukocytosis: History of Present Illness Reason for Consultation: Goals of Care Requesting Physician: Dr. Jiménez Attending Physician: Leandro Jiménez History of Present Illness This is an 89 year old female who is a permanent resident at [facility] and presented to the ED with altered mental status, generalized weakness, SOB, and swelling/erythema of her RLE. Additional PMH includes: COPD, diastolic CHF, HTN, CKD stage III, macrocytic anemia with myelodysplasia, pAF on Warfarin, and thrombocytopenia. Her sister in law and TOVAYas Massey ([place]) was with the patient upon her evaluation in the ED. A CXR was performed and indicated pulmonary congestion and cardiomegaly, along with trace pleural effusions. She was admitted with a diagnosis of pAF with RVR, sepsis and an acute exacerbation of diastolic CHF. In the ED the patients POA states that patient wishes CODE STATUS to be DNR/DNI as well as she wants to pursue comfort measures without any intervention except for antibiotics, fluids, heart medication such as medication to slow her heart rate, or blood transfusion with blood products. Her WBC has shown a significant increase, now up to 30.49. Her blood cultures have returned (+) for ESBL E.Coli in the urine. Her CHF has been managed by Cardiology and is stable with diuretics. The patient wears CPAP at bedtime for CARLITOS. She reports having chronic back pain for which she wears Fentanyl patches (37 mcg TD Q3D) chronically for management. Palliative Care was consulted for a goals of care conversation. Please see A/P for further details. Thank you kindly for involving the palliative care team with this patient and her family. We will follow as needed throughout her hospitalization. Allergies Allergy/AdvReac Type Severity Reaction Status Date / Time enoxaparin Allergy Intermediate RASH, Verified 12/08/19 10:57 PRURITUS Home Medications Home Medications Medication Instructions Recorded Confirmed Type Prilosec OTC 20 mg PO QAM 09/07/18 12/08/19 History Spiriva with HandiHaler 1 cap INHALATION QAM 09/07/18 12/08/19 History allopurinol 100 mg PO QAM 09/07/18 12/08/19 History duloxetine 30 mg PO QPM 09/07/18 12/08/19 History gabapentin 600 mg PO HS 09/07/18 12/08/19 History montelukast [Singulair] 10 mg PO PM 09/07/18 12/08/19 History Restasis MultiDose 1 drp OPHTHALMIC (EYE) BID 11/06/18 12/08/19 History acetaminophen 325 - 650 mg PO Q6H PRN MDD 3G 11/06/18 12/08/19 History albuterol sulfate [Ventolin HFA] 2 puff INHALATION Q4H PRN 11/06/18 12/08/19 History azelastine 2 spray INTRANASAL QAM 11/06/18 12/08/19 History fluticasone propionate [Flonase 2 spray INTRANASAL DAILY 11/06/18 12/08/19 History Allergy Relief] multivitamin 1 tab PO QAM 11/06/18 12/08/19 History acetaminophen [Tylenol Extra 1,000 mg PO HS 02/02/19 12/08/19 History Strength] diclofenac sodium [Voltaren] 2 g TOPICAL BID 02/02/19 12/08/19 History sodium chloride [[place] Nasal] 1 spray INTRANASAL UD PRN 02/02/19 12/08/19 History gabapentin 200 mg PO BID 07/14/19 12/08/19 History polyethylene glycol 3350 [Miralax] 17 g PO PM 07/14/19 12/08/19 History Fleet Enema 118 ml NE DAILY PRN 07/30/19 12/08/19 History bisacodyl 10 mg NE DAILY PRN 07/30/19 12/08/19 History fluticasone propion-salmeterol 1 puff INHALATION Q12H 07/30/19 12/08/19 History [Advair Diskus] albuterol sulfate 2.5 mg INH QID #90 ml 08/16/19 12/08/19 Rx codeine-guaifenesin 10 ml PO Q6H PRN #118 ml 08/16/19 12/08/19 Rx fentanyl 1 patch TD Q72H #5 ea 08/16/19 12/08/19 Rx oxycodone 5 mg PO DAILY PRN #30 tab 08/16/19 12/08/19 Rx oxycodone 10 mg PO DAILY PRN #30 tab 08/16/19 12/08/19 Rx carvedilol 3.125 mg tablet 3.125 mg PO BID tab 09/09/19 12/08/19 History budesonide 0.5 mg/2 mL suspension 2 ml INH BID 09/11/19 12/08/19 History for nebulization furosemide 40 mg tablet 40 mg PO DAILY #30 tab 09/11/19 12/08/19 Rx ropinirole 1 mg tablet 1 mg PO QID #90 tab 09/11/19 12/08/19 Rx guaifenesin 100 mg/5 mL oral liquid 200 mg PO Q4H PRN 11/28/19 12/08/19 History prednisone 20 mg tablet See Rx Instructions PO .COMPLEX 11/28/19 12/08/19 Rx #18 tab ceftriaxone 2 g IV DAILY 12/08/19 12/08/19 History levothyroxine 112 mcg PO DAILY 12/08/19 12/08/19 History warfarin 1.5 mg PO DAILY 12/08/19 12/08/19 History Patient History Medical History (Updated 12/13/19 @ 11:14 by CIARA Guadalupe) Asthma (Chronic) Chronic back pain Chronic diastolic CHF (congestive heart failure) (Chronic) CKD (chronic kidney disease), stage III (Chronic) COPD exacerbation (Acute) DCIS (ductal carcinoma in situ) (~2012) Deep vein blood clot of right lower extremity Goals of care, counseling/discussion History of pulmonary embolism Hx pulmonary embolism Hypertension (Chronic) Hypoxia (Acute) Lung cancer (~2010) Mixed conductive and sensorineural hearing loss of right ear with restricted hearing of left ear RLS (restless legs syndrome) Spasmodic dysphonia Surgical History H/O mastectomy History of back surgery History of lung surgery Hx of appendectomy Hx of hernia repair Hx of hysterectomy Hx of resection of liver Hx of total knee replacement Family History Other Family history non-contributory Social History Preferred Language: Turkmen Communication Ability: Effective Grinder Outside Diameter Required: No Beliefs That Will Affect Care: None Current Living Situation: [facility] Current Living Situation Comment: [facility] Feels Safe at Home: Yes Smoking Status: Never smoker Second Hand Exposure: No ; Hx Alcohol Use: No Hx Substance Use: No Review of Systems Review of Systems: General: Pt denies overall pain, but says that her back hurts most of the time HEENT: Pt denies SCHWARTZ, dizziness, visual changes CV: Pt denies chest pain, palpitatinos Resp: Pt denies SOB. GI: Pt denies appetite changes, bowel changes : Pt denies urinary changes Skin: Pt denies any new skin lesions Psych: Pt denies hallucinations Physical Exam Constitutional: + frail appearing and cooperative Respiratory: normal respiratory effort and symmetric chest movement; does not use accessory muscles Auscultation: + diminished lung sounds on supplemental nasal canula O2 Cardiovascular: Rate/Rhythm: regular rate and regular rhythm Heart Sounds: normal S1 and normal S2 Extremities: normal capillary refill and + edema (+2) Gastrointestinal (Abdomen): normal bowel sounds, soft, nontender, no hepatosplenomegaly Skin: no rashes, warm and dry Psychiatric: A+Ox3, euthymic affect Insight: good insight Judgement: good judgement Genitourinary: Indwelling garsia catheter Lymphatic: no cervical or axillary lymphadenopathy Results & Data Vital Signs (Past 12 Hours) Vital Signs Temp Pulse Pulse Resp BP Pulse Ox 12/13/19 07:13 36.4 C L 104 H 18 138/98 95 12/13/19 06:56 100 H 20 97 12/13/19 04:20 36.8 C 102 H 24 132/99 95 12/13/19 00:11 36.3 C L 96 H 17 134/82 96 12/13/19 00:00 83 12/12/19 23:20 92 H 18 96 PG Care Time/CCT Total # of Minutes Spent Total Time Spent with Patient: Total time spent is greater than 50% in coordination of care (as documented) at patient's floor/unit and/or counseling patient: 70 Coding Level of Care Code 05425 Inpt Consult Level 3 Diagnoses Goals of care, counseling/discussion Z71.89 Septicemia due to E. coli A41.51 Atrial fibrillation I48.91 Atrial fibrillation type: unspecified Chronic respiratory failure with hypoxia J96.11 Acute on chronic diastolic CHF (congestive heart failure) I50.33 Leukocytosis D72.829 Time Spent (min) 70 Time Spent Midlevel Total time spent 70 minutes with > 50% of that time spent assessing the patient and discussing goals of care with IDT.
[2019-12-13] MEDS: ACETAMINOPHEN 325 MG TAB PO PRN (09:33)
[2019-12-13] MEDS ORDERED: METOPROLOL TARTRATE 25 MG TAB PO SCH (10:15)
--- NOTE | 2019-12-13 12:41 | Cardiology Progress Note ---
Date of Service December 13, 2019 Assessment & Plan (1) Atrial fibrillation: The patient's ventricular response to her atrial fibrillation is adequately controlled on metoprolol and diltiazem. (2) Acute on chronic diastolic CHF (congestive heart failure): Continue intravenous furosemide. (3) Hypertension: Adequate control on current medical regimen. (4) Chronic respiratory failure: Llikely secondary to her CHF, COPD, prior lung wedge resection, sleep apnea, and her obesity. She is on chronic oxygen at home. Palliative care is being pursued. Subjective The patient is resting comfortably in bed without complaints of chest pain, dyspnea, or palpitations. Continues to note a nonproductive cough. Physical Exam Physical Exam: In general is a morbidly obese white female lying supine in bed without complaints. HEENT exam is negative. Neck is supple with full carotid upstrokes. Jugular venous pressure cannot be assessed. Cardiovascular exam reveals an irregular rhythm with distant heart sounds. No obvious murmurs. Lungs are clear but no decreased breath sounds at the bases. Abdomen is obese. Extremities reveal 2+ pitting edema in the pretibial regions. A diffuse erythema noted across the lower extremities. Results & Data Vital Signs (Past 12 Hours) Vital Signs Temp Pulse Resp BP Pulse Ox 12/13/19 11:23 36.9 C 95 H 22 132/73 95 12/13/19 07:13 36.4 C L 104 H 18 138/98 95 12/13/19 06:56 100 H 20 97 12/13/19 04:20 36.8 C 102 H 24 132/99 95 Diagnostic Findings site monitor notes atrial fib with a controlled ventricular response. PG Care Time/CCT Total # of Minutes Spent Total Time Spent with Patient: Total time spent is greater than 50% in coordination of care (as documented) at patient's floor/unit and/or counseling patient: Coding Level of Care Code 06719 Subseq Hosp Care Lvl 3 Diagnoses Atrial fibrillation I48.91 Atrial fibrillation type: unspecified Acute on chronic diastolic CHF (congestive heart failure) I50.33 Hypertension I10 Hypertension type: essential hypertension Chronic respiratory failure J96.10 (1) Atrial fibrillation Atrial fibrillation type: unspecified Qualified Code(s): I48.91 - Unspecified atrial fibrillation (2) Hypertension Hypertension type: essential hypertension Qualified Code(s): I10 - Essential (primary) hypertension
--- NOTE | 2019-12-13 13:11 | Pharmacy Report ---
Pharmacy Glycemic Short Note 2 - Date of Service December 13, 2019 - Glycemic Short BSG Results (Last 24 hours): 12/12/19 12/12/19 12/13/19 16:44 20:21 05:51 Glucose 123 H POC Glucose 115 H 98 12/13/19 12/13/19 07:11 11:14 Glucose POC Glucose 116 H 125 H OUTPATIENT ANTIDIABETIC REGIMEN: * n/a; no prior dx of DM * A1c = 5.9% 12/09/19 ASSESSMENT: 12/13 * Fasting BSG 116 with 15 units basal insulin on board * Patient appears to be more insulin sensitive at this time; will titrate back basal and prandial insulin doses at this time * Dosing scale to continue with Lantus due to changing insulin sensitivity 12/12 * BSGs reasonably well controlled, BSGs have ranged 172-201 over the last 24 hrs - only two BSG above 180 (181 and 201) * Steroid dose is being reduced by 50% today - would expect some improved insulin sensitivity in the next 24 hrs, however given BSGs are running border- line high, I plan to continue the current insulin orders another 24 hrs. The Lantus order does have a dosing scale should insulin sensitivity improve by HS 12/11 * BSGs well controlled over last 24 hrs * Solu-medrol continues at same dosage * Fasting BSG elevated,however acceptable this AM. FBS = 176 with 30 units basal insulin on board - will continue w/ current order as we have not yet achieved steady-state w/ current dose * Post-prandial BSGs well controlled w/ Novolog CF/CR 12/10 * Patient admitted for sepsis secondary to UTI, pneumonia and cellulitis, as well as ADHF. BLCXs and Urine Cx growing ESBL ecoli * Patient is receiving high dose IV steroid for resp failure * Steroids and infection leading to stress inducted hyperglycemia with sustained BSGs in 200s * Basal / Bolus SQ regimen initiated yesterday based upon weight and moderate/severe stress level. Will continue a similar regimen today, however will scale the basal insulin dose going forward given potential for steroid taper in the future PLAN FOR INPATIENT GLYCEMIC CONTROL: * Basal insulin (decrease) * 0 units if BSG less than 110 * 8 units if BSG 110-180 * 15 units if BSG above 180 * Bolus insulin (no change) * NovoLog per scale ACHS * Goal Range: Low 110 mg/dL - High 140 mg/dL * Correction Factor: 20 mg/dL/unit * Nutritional / Prandial insulin per carb ratio of 1 unit per 8 grams CHO consumed * Reevaluate insulin doses with each step down in steroid dose PLAN FOR DISCHARGE: * given A1c of 5.9% it is unlikely this patient will require medication for glycemic control on discharge - observed hyperglycemia is likely secondary to current stressors
[2019-12-13] MEDS ORDERED: MoRPHine SULFATE 5 MG/0.25 ML UDP PO PRN (14:20)
[2019-12-13] MEDS ORDERED: FUROSEMIDE 40 MG in SYRINGE 0 ML IV STA (15:42)
--- NOTE | 2019-12-13 16:50 | Discharge Summary ---
Date of Service December 13, 2019 Admission HPI Per Admitting Provider The patient is a and 89 years old female with past medical history of COPD, diastolic CHF, hypertension, CKD stage III, macrocytic anemia with myelodysplasia,, paroxysmal atrial fibrillation on warfarin, profound thro mbocytopenia who was brought by EMS to the emergency room from [facility] with a complaint of feeling sick for the past few days, cloudy urine, altered mental status, generalized weakness, shortness of breath, swelling and redness of her right lower extremity up to her thigh. Patient is accompanied by Yas Mendez who is her [id number] and POA. Patient herself is so sick that she could not review any history or review of system. While she is arousable on painful stimuli she is poor historian with altered mental status. Yas yesterday patient's POA states that patient wishes CODE STATUS to be DNR/DNI as well as she wants to pursue comfort measures without any intervention except for antibiotics, fluids, heart medication such as medication to slow her heart rate, or blood transfusion with blood products. Yas yesterday specifically stated that she does not want any invasive procedures included but not limited to central line. EKG pending, labs are reviewed: [place] um 138, potassium 4.5, chloride 100, chloride 100, carbon dioxide 32, anion gap 6, BUN 49, creatinine 1.72, and GFR 26.1, BUN 28.3, lactate 2, calcium 9.6, magnesium pending, total bilirubin 1.3, AST 25, ALT 33, alkaline phosphatase 124, troponin 0.046, BNP 15,687, total protein 5.5, albumin 2.3, globulin 3.2, albumin to globulin ratio 0.7, procalcitonin pending, TSH 0.548, urine slightly cloudy, urine pH 5, urine specificity 1.0 21, urine ketones trace, urine blood 2+, leukocyte esterase 1+, WBC 5-10, urine RBCs 5-10, epithelial cells over 30, urine bacteria 3+, urine mucus present. Patient is positive for MRSA. BNP pending. Chest x-ray shows cardiomegaly with pulmonary vascular congestion. Trace right pleural effusion. Decision was made to admit patient to PCU on telemetry for paroxysmal A. fib's with RVR, sepsis, urinary tract infection, acute exacerbation of diastolic CHF. Discharge Exam Constitutional + ill appearing, + morbidly obese and + frail appearing; no acute distress and no altered mental status ENMT external ear and nose normal, oropharynx normal Mouth: + dry oral mucous membranes Respiratory no respiratory distress Auscultation: + crackles (R base > L base) and + wheezes (b/l) Cardiovascular Rate/Rhythm: regular rate and + irregularly irregular Heart Sounds: normal S1 and normal S2; no murmur Vessels: posterior tibial pulses present and dorsalis pedis pulses present; no JVD Extremities: + edema (no change from 12/11 exam) Gastrointestinal (Abdomen) normal bowel sounds, soft, nontender, no hepatosplenomegaly Percussion/Palpation: + abdominal mass (vs focal scar tissue high epigastric region ) Psychiatric Orientation: alert and oriented x 3 Discharge Data Allergies Allergy/AdvReac Type Severity Reaction Status Date / Time enoxaparin Allergy Intermediate RASH, Verified 12/08/19 10:57 PRURITUS Consultations 12/08/19 11:43 ED Decision to Admit Stat 12/08/19 15:57 Consult Infectious Diseases Routine 12/09/19 12:02 Consult Cardiology Routine 12/09/19 12:20 Consult Oncology Routine 12/12/19 20:53 Consult Palliative Care Routine Hospital Course (1) Septicemia due to E. coli: admit blood cx's + for ESBL e.coli. source -- UTI. 2018 CT abd/pelvis without renal anomalies (stones, etc). repeat blood cx's from 12/11 thus far negative. unfortunately, given the ESBL nature of the e.coli, we are looking at 14 days of Rx with ertapenem. cont ertapenem. (2) UTI (urinary tract infection): 2nd ESBL e.coli. see "septicemia" above (3) Acute on chronic diastolic CHF (congestive heart failure): cont IV lasix; BUN & Cr stable; still appears volume overloaded clinically. repeat BMP am. (4) Atrial fibrillation: Rates controlled with PO cardizem 60mg q6h. Ultimately convert IR cardizem to cardizem CD. Cont coreg. In light of severe thrombocytopenia her coumadin has been stopped; likely to keep her off of it especially since we are likely going to transition to palliative care/hospice. (5) Cellulitis of right lower extremity: Improving. Cont IV abx (vanco and ertapenem). (6) CARLITOS (obstructive sleep apnea): Cont CPAP at night (7) Bone marrow disorder: Patient has myelodysplasia. She opted not to have bone marrow biopsy in the past. Has chronically low platelets. S/p 1 unit of platelets this admission for acute/chronic thrombocytopenia. Keep off of coumadin indefinitely. Platelets today >100. Care d/w Dr Cheema over last 2 days. CBC in am. (8) Chronic respiratory failure with hypoxia: on home O2, 4 liters. stable. (9) Hypothyroid: TSH normal this admission. Continue 112mcg levothyroxine daily. (10) Thrombocytopenia: As discussed above in "bone marrow d/o". Acute drop to the 10's likely due to bone marrow suppression from sepsis. s/p 1 unit of platelets earlier this admission. Platelet count trending towards her "baseline". (11) Elevated troponin: Likely due to demand ischemia in setting of septicemia and rapid A. fib. No evidence of ACS. (12) Acute kidney injury: resolved; likely was sepsis-associated ATN (13) Chronic anticoagulation: was previously on coumadin due to prior VTE and a.fib - now stopped (14) Stage III chronic kidney disease: Baseline CrCL 40s/50s (15) Chronic back pain: cont fentanyl patches as previous (16) Morbid obesity: BMI currently 45-50 (17) COPD (chronic obstructive pulmonary disease): cont IV steroids 30mg q12h. no wean today. (18) DVT prophylaxis: SCDs only lengthy discussion regarding goals for care with patient and her [id number] patient has been quite clear over last few days that she would like to transition to comfort care/palliative care we discussed these options in detail will have palliative care see formally in consult tomorrow suspect we will be transitioning to hospice upon return to SNF total time today 50 minutes, >50% of which was spent counseling at bedside Discharge Plan Discharge Items Patient Disposition: Transfer [facility] Fac Reason For Visit: SEPSIS Discharge Diagnosis: 1. septicemia 2nd UTI 2. acute/chronic diastolic CHF 3. COPD exacerbation 4. severe thrombocytopenia 5. rapid a.fib 6. myelodysplastic syndrome 7. morbid obesity 8. chronic respiratory failure on continuous NC O2 9. RLE cellulitis Activity: As commented below Activity Comment: bed rest Non-emergency contact: Primary Care Provider Call non-emergency contact if: your symptoms worsen, your pain is not controlled and your pain is worsening Follow-up/Referrals: [facility] [Primary Care Provider] - Diet: Regular Addtl Attending Provider Instructions: Patient is returning to [facility] WITH COMFORT CARE. She does NOT wish to be re-hospitalized at ANY TIME. Recommendations - 1. continue garsia catheter 2. continue NC O2 3-4 L continuously 3. for pain or air hunger -- * roxanol liquid 10mg PO q3h prn 4. for anxiety or agitation -- * ativan 0.5mg q6h prn 5. for excess oral secretions -- * scopalamine patch behind ear - every 3 days prn 6. for nausea/vomiting -- * zofran 4mg PO q6h prn 7. for cough/congestion -- * guaifenasin/codeine 10ml po q6h prn Stop all vital signs. Stop all blood work. Stop all blood sugar checks. Focus on comfort and symptom control. Pending Studies at Discharge: No Stand-Alone Forms: [facility] Skilled Items Patient informed of condition?: Yes DNR: Yes Discharge Level of Care: Skilled Communicable Disease: Yes Discharge Prognosis: Deteriorating Lines: None Urinary Catheter: Yes Medications and DC Order Prescriptions: New ondansetron 4 mg tablet,disintegrating 4 mg PO Q6H PRN (Reason: nausea and vomiting) Qty: 14 RF: 0 morphine concentrate 100 mg/5 mL (20 mg/mL) solution 10 mg PO Q3H PRN (Reason: pain) Qty: 30 RF: 0 lorazepam [Ativan] 0.5 mg tablet 0.5 mg PO Q6H PRN (Reason: anxiety or agitation) Qty: 20 RF: 0 scopolamine base 1 mg over 3 days patch 3 day 1 patch TD Q3D PRN (Reason: for excess oral secretions) Qty: 4 RF: 0 diltiazem HCl [Cardizem CD] 240 mg capsule,extended release 24hr 240 mg PO DAILY Qty: 30 RF: 2 metoprolol succinate [Toprol XL] 25 mg tablet extended release 24 hr 25 mg PO DAILY Qty: 30 RF: 2 prednisone 10 mg tablet 10 mg PO DIRECTED Qty: 14 RF: 0 Continued ropinirole 1 mg tablet 1 mg PO QID Qty: 90 RF: 2 furosemide 40 mg tablet 40 mg PO DAILY Qty: 30 RF: 2 albuterol sulfate [Ventolin HFA] 90 mcg/actuation Hfa Aerosol Inhaler 2 puff INHALATION Q4H PRN (Reason: COPD) RF: 0 acetaminophen 325 mg Capsule 325 - 650 mg PO Q6H MDD 3G PRN (Reason: Fever/pain) RF: 0 Restasis MultiDose 0.05 % Drops 1 drp OPHTHALMIC (EYE) BID RF: 0 fluticasone propion-salmeterol [Advair Diskus] 100-50 mcg/dose Blister With Device 1 puff INHALATION Q12H RF: 0 albuterol sulfate 2.5 mg /3 mL (0.083 %) solution for nebulization 2.5 mg INH QID Qty: 90 RF: 0 allopurinol 100 mg Tablet 100 mg PO QAM RF: 0 Prilosec OTC 20 mg Tablet,Delayed Release (Dr/Ec) 20 mg PO QAM RF: 0 Spiriva with HandiHaler 18 mcg Capsule, W/Inhalation Device 1 cap INHALATION QAM RF: 0 duloxetine 30 mg Capsule,Delayed Release(Dr/Ec) 30 mg PO QPM RF: 0 acetaminophen [Tylenol Extra Strength] 500 mg Tablet 1,000 mg PO HS RF: 0 sodium chloride [[place] Nasal] 0.65 % Aerosol,Snyder 1 spray INTRANASAL UD PRN (Reason: Dry Nasal Passages) RF: 0 diclofenac sodium [Voltaren] 1 % Gel 2 g TOPICAL BID RF: 0 levothyroxine 112 mcg Tablet 112 mcg PO DAILY RF: 0 gabapentin 600 mg Tablet 600 mg PO HS Qty: 30 RF: 0 codeine-guaifenesin 10-100 mg/5 mL liquid 10 ml PO Q6H PRN (Reason: cough) Qty: 118 RF: 0 gabapentin 100 mg capsule 200 mg PO BID Qty: 120 RF: 0 fentanyl 37.5 mcg/hour patch 72 hour 1 patch TD Q72H Qty: 5 RF: 0 Discontinued guaifenesin 100 mg/5 mL liquid 200 mg PO Q4H PRN (Reason: Cough) RF: 0 prednisone 20 mg tablet See Rx Instructions PO .COMPLEX Qty: 18 RF: 0 budesonide 0.5 mg/2 mL suspension for nebulization 2 ml INH BID RF: 0 carvedilol 3.125 mg tablet 3.125 mg PO BID RF: 0 multivitamin Tablet 1 tab PO QAM RF: 0 azelastine 137 mcg (0.1 %) Aerosol,Snyder 2 spray INTRANASAL QAM RF: 0 fluticasone propionate [Flonase Allergy Relief] 50 mcg/actuation Snyder,Suspension 2 spray INTRANASAL DAILY RF: 0 polyethylene glycol 3350 [Miralax] 17 gram powder in packet 17 g PO PM RF: 0 bisacodyl 10 mg Suppository 10 mg CA DAILY PRN (Reason: Constipation) RF: 0 Fleet Enema 19-7 gram/118 mL Enema 118 ml CA DAILY PRN (Reason: Constipation) RF: 0 oxycodone 10 mg tablet 10 mg PO DAILY PRN (Reason: severe pain) Qty: 30 RF: 0 oxycodone 5 mg tablet 5 mg PO DAILY PRN (Reason: Moderate) Qty: 30 RF: 0 montelukast [Singulair] 10 mg Tablet 10 mg PO PM RF: 0 ceftriaxone 2 gram Recon Soln 2 g IV DAILY RF: 0 warfarin 1 mg tablet 1.5 mg PO DAILY RF: 0 Discharge Orders: Discharge Order (Routine); Ordered 12/13/19 Ordered By: Leandro Jiménez Admission Data Admit Date/Time: 12/08/19 12:37 Attending Provider: Leandro Jiménez Admit Provider: Elenita Anderson Primary Care Provider: Madi Castellanos Other Providers: Elenita Anderson ; Amalia Lira ; Madi Castellanos ; Simone Marquez ; Ronaldo Cheema V ; Reema Isaac Coding Diagnoses Septicemia due to E. coli A41.51 UTI (urinary tract infection) N30.00 Urinary tract infection type: acute cystitis Hematuria presence: without hematuria Acute on chronic diastolic CHF (congestive heart failure) I50.33 Atrial fibrillation I48.91 Atrial fibrillation type: unspecified Cellulitis of right lower extremity L03.115 CARLITOS (obstructive sleep apnea) G47.33 Bone marrow disorder D75.9 Chronic respiratory failure with hypoxia J96.11 Hypothyroid E03.9 Hypothyroidism type: acquired Thrombocytopenia D69.6 Elevated troponin R79.89 Acute kidney injury N17.9 Chronic anticoagulation Z79.01 Stage III chronic kidney disease N18.3 Chronic back pain M54.5; G89.29 Back pain location: low back pain Back pain laterality: unspecified Sciatica presence: unspecified whether sciatica present Morbid obesity E66.01 COPD (chronic obstructive pulmonary disease) J44.1 COPD type: COPD with acute exacerbation DVT prophylaxis Z29.9
== END 2019-12-13 17:34 | disposition hospice, inpatient (51) | DRG 871 ==
LOC: ED 10:11 → 2E 12:37 → SUATTDRO 12:37 → 2E 14:36